=== PATIENT | female | born 1970 | race Caucasian/White ===

== ENCOUNTER 2017-11-11 14:34 | Emergency (ER) | payer BC ==
[~2017-11-11] VITALS: Ht 162.6 cm; Wt 78.4 kg
[2017-11-11 14:39] VITALS: TEMP 36.8; Ht 162.6 cm; Wt 78.4 kg
--- NOTE | 2017-11-11 15:03 | EMERGENCY ROOM VISIT NOTE ---
History First contact with patient: 14:47 Chief Complaint: LEG PAIN,LEG INJURY Stated Complaint: SORENESS,ACHE IN RIGHT LEG History of Present Illness 47-year-old female with a history of DVT and lymphedema of the right lower extremity presenting with increased swelling and pain over the last 3 days. Consistent along the entire leg that started on the right inner thigh. No trauma reported. Dull aching quality. Constant ache. History of cervical cancer off chemotherapy. Blood clot last July and finished anticoagulation in March. Drove here from [place] where she also lives 2 days ago symptoms began to worsen. No shortness of breath. No trauma. No change in neurological status. Worse when leg is down as opposed to lying flat or elevated. Currently on antibiotic for UTI. Source of History: patient Position: leg (right) Symptom Intensity: moderate Quality: ache, pressure, dull Timing: constant Modifying Factors (Relieving): elevation Associated Symptoms: No fevers, No chills, No chest pain, No SOB Review of Systems See HPI for pertinent positives and negatives. A total of ten systems were reviewed and were otherwise negative. Social History Smoking Status: Never Smoker Marital Status: Housing Status: lives with significant other Occupation Status: employed Current/Historical Medications Scheduled Ciprofloxacin Tab (Cipro), 1 TAB PO Q12 Enoxaparin Sodium (Lovenox), 120 MG SQ Q24H Oxybutynin Chloride (Oxybutynin Chloride ER), 10 MG PO DAILY Sertraline Hcl (Zoloft), 100 MG PO QAM Physical Exam Vital Signs Date Time Temp Pulse Resp B/P (MAP) Pulse Ox O2 Delivery O2 Flow Rate FiO2 11/11/17 14:39 36.8 93 18 142/86 97 Room Air Physical Exam GENERAL: Awake, alert, well-appearing, in no distress HENT: Normocephalic, atraumatic. Oropharynx unremarkable. EYES: Normal conjunctiva. Sclera non-icteric. NECK: Supple. No nuchal rigidity. RESPIRATORY: Clear to auscultation. No wheezes. Normal respiratory effort. CARDIAC: Normal rate. Normal rhythm. Extremities warm and well perfused. GI: Soft, non-distended. No tenderness to palpation. No rebound or guarding. No masses. RECTAL: Deferred. MUSCULOSKELETAL: Atraumatic. Chest examination reveals no tenderness; right chest wall port. LOWER EXTREMITIES: LLE wnl. RLE with 3+ edema and swelling of entire leg without tenderness or crepitus. Intact 2+ DP pulse right foot. Very slight erythema diffusely. NEURO: Normal sensorium. No gross sensory or motor deficits noted. No facial droop. SKIN: Warm and dry. No rash or jaundice noted. Medical Decision & Procedures Laboratory Results 11/11/17 15:10 Red Blood Count 4.04, Mean Corpuscular Volume 91.8, Mean Corpuscular Hemoglobin 31.2, Mean Corpuscular Hemoglobin Concent 34.0, Mean Platelet Volume 9.7, Neutrophils (%) (Auto) 76.4, Lymphocytes (%) (Auto) 7.8, Monocytes (%) (Auto) 13.3, Eosinophils (%) (Auto) 1.6, Basophils (%) (Auto) 0.3, Neutrophils # (Auto ) 5.30, Lymphocytes # (Auto) 0.54, Monocytes # (Auto) 0.92, Eosinophils # (Auto ) 0.11, Basophils # (Auto) 0.02 11/11/17 15:10 Test 11/11/17 15:10 11/11/17 16:12 White Blood Count 6.93 K/uL (4.8-10.8) Red Blood Count 4.04 M/uL (4.2-5.4) Hemoglobin 12.6 g/dL (12.0-16.0) Hematocrit 37.1 % (37-47) Mean Corpuscular Volume 91.8 fL (80-100) Mean Corpuscular Hemoglobin 31.2 pg (25-34) Mean Corpuscular Hemoglobin Concent 34.0 g/dl (32-36) Platelet Count 160 K/uL (130-400) Mean Platelet Volume 9.7 fL (7.4-10.4) Neutrophils (%) (Auto) 76.4 % Lymphocytes (%) (Auto) 7.8 % Monocytes (%) (Auto) 13.3 % Eosinophils (%) (Auto) 1.6 % Basophils (%) (Auto) 0.3 % Neutrophils # (Auto) 5.30 K/uL (1.4-6.5) Lymphocytes # (Auto) 0.54 K/uL (1.2-3.4) Monocytes # (Auto) 0.92 K/uL (0.11-0.59) Eosinophils # (Auto) 0.11 K/uL (0-0.5) Basophils # (Auto) 0.02 K/uL (0-0.2) RDW Standard Deviation 46.0 fL (36.4-46.3) RDW Coefficient of Variation 13.8 % (11.5-14.5) Immature Granulocyte % (Auto) 0.6 % Immature Granulocyte # (Auto) 0.04 K/uL (0.00-0.02) Anion Gap 11.0 mmol/L (3-11) Est Creatinine Clear Calc Drug Dose 143.9 ml/min Estimated GFR () 134.5 Estimated GFR (Non- 116.0 BUN/Creatinine Ratio 28.4 (10-20) Calcium Level 8.6 mg/dl (8.5-10.1) Prothrombin Time 11.3 SECONDS (9.0-12.0) Prothromb Time International Ratio 1.1 (0.9-1.1) Activated Partial Thromboplast Time 26.5 SECONDS (21.0-31.0) Partial Thromboplastin Ratio 1.0 ED Course 1445: The patient was evaluated in room B5. A complete history and physical exam was performed. 1620: Informed of US results. Discussed treatment plan. Lovenox ordered. I reevaluated the patient. Discussed results and discharge instructions: she verbalized understanding and agreement. The patient is ready for discharge pending Lovenox. Medical Decision Differential diagnosis: Etiologies such as DVT, musculoskeletal, infection, joint effusion, trauma, lymphedema, idiopathic, CHF, as well as others were entertained. Concern for possible DVT of this leg. Has underlying lymphedema but appears worse. Currently on antibiotic for UTI does not appear grossly cellulitic. She is no evidence of systemic illness. No trauma history and do not believe x- rays are indicated. Ultrasound of the extremity was completed along with basic blood work. No leukocytosis. Renal function stable. No evidence of ischemia of the limb. Ultrasound with extensive DVT. Not having symptoms consistent with PE at this time. We will start anticoagulation with Lovenox after discussion with patient. 1.5 mg/kg (120) every 24 hour dosing will be started. She will discuss with her aluminum molding machine operator tomorrow for long-term plans. Prescription provided. She is educated on Lovenox use as already as she used it last year. She is stable for discharge I did discuss return precautions. Discussed limiting driving given the swelling of limb. Medication Reconcilliation Current Medication List: was personally reviewed by me Blood Pressure Screening Patient's blood pressure: Elevated blood pressure Blood pressure disposition: Referred to PCP Please utilize the Lovenox 120 mg every 24 hours for anticoagulation next due at 4 PM on 11/12/2017. Would recommend you call your aluminum molding machine operator tomorrow to discuss long-term anticoagulation plans. Prescription provided for the tentative plan now. Would refrain from driving given the swelling and limited mobility of the his right leg elevated as possible. If you begin to experience severe chest pain, shortness of breath, severe pain of the right lower extremity , or other symptoms or concerns please report to the nearest emergency room for reevaluation. Otherwise recommend follow-up with your aluminum molding machine operator in the next week and again calling them tomorrow. Impression Primary Impression: Right femoral vein DVT Departure Information Dispostion Home / Self-Care Condition GOOD Prescriptions Enoxaparin Sodium (LOVENOX) 120 Mg/0.8 Ml Inj 120 MG SQ Q24H for 10 Days, #10 SYR 1 Refill Prov: Nnamdi Stuart M.D. 11/11/17 Referrals No Doctor, Assigned (PCP) Patient Instructions [facility] Additional Instructions Please utilize the Lovenox 120 mg every 24 hours for anticoagulation next due at 4 PM on 11/12/2017. Would recommend you call your aluminum molding machine operator tomorrow to discuss long-term anticoagulation plans. Prescription provided for the tentative plan now. Would refrain from driving given the swelling and limited mobility of the his right leg elevated as possible. If you begin to experience severe chest pain, shortness of breath, severe pain of the right lower extremity , or other symptoms or concerns please report to the nearest emergency room for reevaluation. Otherwise recommend follow-up with your aluminum molding machine operator in the next week and again calling them tomorrow. Problem Qualifiers Primary Impression: Right femoral vein DVT Chronicity: acute Qualified Codes: I82.411 - Acute embolism and thrombosis of right femoral vein
[2017-11-11] MEDS ORDERED: DTRSR/10 PO (15:17)
[2017-11-11] MEDS ORDERED: SERT100T PO (15:17)
[2017-11-11] MEDS ORDERED: CIPR1TAB11 PO (15:17)
[2017-11-11 15:18] LABS: BASO % 0.3 %; BASO ABS # 0.02 K/uL (0-0.2); EOS % 1.6 %; EOS ABS # 0.11 K/uL (0-0.5); HEMATOCRIT 37.1 % (37-47); HEMOGLOBIN 12.6 g/dL (12.0-16.0); IG# 0.04 K/uL (0.00-0.02); LYMPH % 7.8 %; LYMPH ABS # 0.54 K/uL (1.2-3.4); MEAN CELL VOLUME 91.8 fL (80-100); MEAN CORPUSCULAR HEMOGLOBIN 31.2 pg (25-34); MEAN PLATELET VOLUME 9.7 fL (7.4-10.4); MONO % 13.3 %; MONO ABS # 0.92 K/uL (0.11-0.59); NEUT % 76.4 %; PLATELET COUNT 160 K/uL (130-400); RED CELL DISTRIBUTION WIDTH CV 13.8 % (11.5-14.5); WHITE BLOOD COUNT 6.93 K/uL (4.8-10.8)
[2017-11-11 15:36] LABS: CALCIUM 8.6 mg/dl (8.5-10.1); CREATININE 0.49 mg/dl (0.60-1.20); POTASSIUM 3.1 mmol/L (3.5-5.1)
--- NOTE | 2017-11-11 15:59 | DIAGNOSTIC IMAGING REPORT ---
RIGHT LOWER EXTREMITY VENOUS DOPPLER CLINICAL HISTORY: Worsening right lower external the swelling. DVT off anticoagulation. COMPARISON STUDY: None available at time of interpretation. TECHNIQUE: Sonography of the deep venous system of the right lower extremity was performed. Compression and augmentation were evaluated. FINDINGS: Extensive deep venous thrombus is noted within the right lower extremity with occlusive thrombus within the right common femoral, femoral, popliteal, posterior tibial and peroneal and as well as superficial thrombus within the right greater saphenous. Several these vessels are expanded. IMPRESSION: Extensive deep venous thrombus within the right lower extremity. Although technically age indeterminate, the appearance favors acute deep venous thrombus. Correlation with prior imaging studies, if available, would be of benefit. Electronically signed by: Roderick Dykes M.D. 11/11/2017 3:57 PM Dictated Date/Time: 11/11/2017 3:55 PM
[2017-11-11] MEDS ORDERED: ENOXAPARIN 1.5 MG/KG SQ STA (16:18)
[2017-11-11] MEDS ORDERED: ENOX1INJ13 SQ (16:23)
[2017-11-11] MEDS ORDERED: ENOXAPARIN 120 MG/0.8 ML SYR SQ STA (16:24)
[2017-11-11 16:28] LABS: INR 1.1 (0.9-1.1); PTT PATIENT 26.5 SECONDS (21.0-31.0)
[2017-11-11 16:41] VITALS: BP 140/94; PULSE 91; O2SAT 96
== END 2017-11-11 16:53 | disposition home or self-care (01) ==
LOC: C.EDB 14:39
DX: I82.411 Acute embolism and thrombosis of right femoral vein (principal); Z86.718 Personal history of other venous thrombosis and embolism; Z79.2 Long term (current) use of antibiotics; Z79.899 Other long term (current) drug therapy

== ENCOUNTER 2023-02-16 09:38 | Inpatient (IN) ==
[2023-02-16] MEDS ORDERED: SODIUM CHLORIDE 0.9% 1,000 ML IV ONE ×2 (10:49→14:48)
[2023-02-16] MEDS ORDERED: ONDANSETRON INJ 2 MG/ML 2 ML VIAL IV STA ×3 (10:49→17:32)
[2023-02-16] MEDS ORDERED: HYDROmorphone INJ 1 MG/ML SYRINGE IV STA ×2 (10:49→14:48)
--- NOTE | 2023-02-16 10:54 | Emergency Department Note ---
Impression & Plan Nausea & vomiting, Abdominal pain, Primary cervical cancer with metastasis to other site ED Provider Note Name: NOELLE MCNEIL Age: 52 Sex: Female Arrives Via: Walk-In Informant: Patient, ED Provider: Reggie Parada MD Chief Complaint: Abdominal pain Impression: As per impressions above Medical Decision Making: Pleasant 52-year-old female with [id number] treatment of metastatic cervical cancer arrives for evaluation of worsening abdominal pain that is been gradually exacerbating the last few months. Patient is dehydrated appearing quite uncomfortable appearing. She was given multiple rounds of IV Dilaudid Zofran and fluids. She does feel better. There is no clear evidence of infectious etiology. CT the chest abdomen pelvis reveals for metastatic disease, there is no overt evidence that this is clearly a pneumonia especially given she is not significantly short of breath or hypoxic. She does have evidence of partial small bowel obstruction which is probably the cause of her continued discomfort. No persistent vomiting in the ED so we will hold off on NG tube. She does report fevers recently but no clear etiology found at this time. We will hold off on empiric antibiotics as I do not feel she is severe sepsis or septic shock. Does have a history of DVT/PE but has been on Lovenox no evidence of PE on the CT. Patient does feel better however given she has been unable to keep down food/fluids her worsening pain and required multiple rounds of meds here I think hospitalization is reasonable and patient and are comfortable with this plan. Triage/Nursing Notes reviewed by Me Differential:Bowel obstruction, ischemic gut, infection, pneumonia, PE, UTI, electrolyte imbalance, cancer pain, many many other pathologies considered Vital Signs: reviewed and remarkable for tachycardia Interventions: Normal saline bolus 2 L IV, Dilaudid 1 mg IV x2, Zofran 4 mg IV Labs:ED labs Reviewed by me and remarkable for mildly low magnesium, negative procalcitonin, neutropenia and anemia. Imaging: CT PE scan of the chest as per my informal interpretation reveals diffuse metastasis throughout lungs no overt PE. Reviewed by radiologist see report CT of the abdomen pelvis as per my informal interpretation questionable ileus versus partial small bowel obstruction no overt free air or other concerning findings. Reviewed by radiologist see report on chart Cardiac/Tele Monitoring: Cardiac Monitoring: An Order was placed for continuous cardiac monitoring. The monitor shows a rate of 120 with a sinus tach rhythm. Consults:[facility] Hospitalist Plan: Disposition: Hospitalization Condition: Good History of Present Illness: 52-year-old female arrives for evaluation of abdominal pain. Patient with several years of cervical cancer treatment. She notes the last few months intermittent abdominal pains. Has been following with oncologist no clear etiology. Patient had her chemo 2 weeks ago. Since then she notes increasing abdominal pain and discomfort. Diffuse abdominal pain originating in the epigastric region and spreading throughout. Associated with intractable nausea vomiting for many hours after she has an episode. Over the last 24 to 48 hours increasing abdominal pain associated with vomiting, fevers of 101 and generalized malaise. Has been unable to keep down any medications. Denies any blood in her emesis. Does have a history of DVT/PE is on Lovenox. Did miss her last 2 doses of Lovenox. Denies any falls, syncope, chest pain, difficulty breathing. Unable to keep down any fluids or foods recently Past Medical History: Metastatic cervical cancer Home Medications: Lovenox, oxybutynin, hydromorphone, Zofran Allergies:nkda Vitals:Blood Pressure: 113/68, Pulse 128, RR 17, T 36.3C, O2 98% on RA Physical Exam: GENERAL: Patient is tired/dehydrated appearing and in moderate distress. GASTROINTESTINAL: Diffuse tenderness palpation EXTREMITIES: Normal motion all extremities, no cyanosis, no edema. NEUROLOGIC: Alert and oriented. No focal neurologic deficits appreciated SKIN: No rash, no jaundice, no diaphoresis. PSYCH: Appropriate GCS: 15 ED Course: Times/Reassessments: Patient is significantly improved after IV fluids and pain meds however is agreeable to hospitalization at this time. Reggie Parada MD Past Med/Surg History Medical History Chronic deep vein thrombosis (DVT) Primary cervical cancer with metastasis to other site Surgical History History of vascular surgery history bilateral lower extremity thrombectomy and stenting History of appendectomy History of hysterectomy Family History Other No significant family history Social History Smoking Status: Never smoker Hx Alcohol Use: No Hx Substance Use: No Preferred Language: Persian Current Living Situation: Spouse Other Information That Helps Us Care for You: No Feels Safe at Home: Yes Safety Concerns: Feels Safe At This Time Allergies Allergies Allergy/AdvReac Type Severity Reaction Status Date / Time No Known Allergies Allergy Unverified 11/11/17 15:14 Home Meds Home Medications Medication Instructions Recorded Confirmed cilostazol 50 mg tablet 50 mg PO BID 02/16/23 02/16/23 cyclosporine 0.05 % eye drops in a 1 drp OPB BID 02/16/23 02/16/23 dropperette (Restasis) dicyclomine 10 mg capsule 10 mg PO TID 02/16/23 02/16/23 duloxetine 30 mg capsule,delayed 30 mg PO DAILY 02/16/23 02/16/23 release enoxaparin 100 mg/mL subcutaneous 100 mg subcut BID 02/16/23 02/16/23 syringe fentanyl 12 mcg/hr transdermal 12 mcg transdermal Q72H 02/16/23 02/16/23 patch gabapentin 100 mg capsule 200 mg PO BID 02/16/23 02/16/23 hydromorphone 2 mg tablet 2 mg PO Q4H PRN Pain 02/16/23 02/16/23 melatonin 3 mg tablet 3 mg PO HS 02/16/23 02/16/23 olanzapine 2.5 mg tablet 2.5 mg PO HS 02/16/23 02/16/23 oxybutynin chloride 10 mg 10 mg PO PM 02/16/23 02/16/23 tablet,extended release 24 hr polyethylene glycol 3350 17 gram 17 g PO DAILY 02/16/23 02/16/23 oral powder packet (Miralax) varenicline 0.03 mg/spray nasal 1 spray intranasal BID 02/16/23 02/16/23 spray (Tyrvaya) Results & Data (ED) Vital Signs Vital Signs - 24 hr 02/16/23 09:49 Temperature 36.3 C L Temperature Source Oral Pulse Rate 128 H Respiratory Rate 17 Respiratory Effort / Characteristics Non-Labored Spontaneous Respiratory Depth Normal Respiratory Pattern Regular Blood Pressure 113/68 Blood Pressure Mean 83 Blood Pressure Position Sitting Pulse Oximetry 98 Oxygen Delivery Method Room Air Sepsis Recent Fever Within 48 Hours Yes Sepsis New/Unexplained Change in Mental Status No Sepsis Action Taken by Nursing No Action Required Laboratory Data 02/17/23 04:20 02/18/23 04:35 Lab Results 02/16/23 02/16/23 Range/Units 11:04 11:18 WBC 3.81 L (4.8-10.8) K/ul RBC 4.79 (4.20-5.40) M/uL Hgb 10.4 L (12.0-16.0) g/dl Hct 34.1 L (37.0-47.0) % MCV 71.2 L (80.0-100.0) fL MCH 21.7 L (25.0-34.0) pg MCHC 30.5 L (32.0-36.0) g/dL RDW Std Deviation 58.4 H (36.4-46.3) fL RDW Coeff of Luis 23.7 H (11.5-14.5) % Plt Count 495 H (130-400) K/uL MPV 9.6 (9.4-12.4) fL Immature Gran % (Auto) 0.5 % Neut % (Auto) 71.1 % Lymph % (Auto) 14.2 % Grady % (Auto) 13.6 % Eos % (Auto) 0.3 % Baso % (Auto) 0.3 % Neut # (Auto) 2.71 (1.40-6.50) K/uL Lymph # (Auto) 0.54 L (1.20-3.40) K/uL Grady # (Auto) 0.52 (0.11-0.59) K/uL Eos # (Auto) 0.01 (0.00-0.50) K/uL Baso # (Auto) 0.01 (0.00-0.20) K/uL Immature Gran # (Auto) 0.02 (0.01-0.20) K/uL Polychromasia 1+ Anisocytosis Present Tear Drop Cells 1+ Ovalocytes 1+ Sodium 138 (136-145) mmol/L Potassium 3.6 (3.5-5.1) mmol/L Chloride 102 (98-107) mmol/L Carbon Dioxide 25 (21-32) mmol/L Anion Gap 11 (3-11) BUN 17 (6-23) mg/dl Creatinine 0.55 L (0.6-1.2) mg/dl Est Cr Clr Drug Dosing 103.3 ml/min Est GFR ( Amer) 125.0 ml/min Est GFR (Non-Af Amer) 107.8 ml/min BUN/Creatinine Ratio 30.9 H (10-20) Glucose 102 H (70-99(Fasting)) mg/dl Lactate 1.6 (0.4-2.0) mmol/L Calcium 9.9 (8.6-10.3) mg/dl Phosphorus 3.8 (2.5-4.9) mg/dl Magnesium 1.6 L (1.7-2.4) mg/dl Total Bilirubin 0.4 (0.2-1.0) mg/dl AST 13 (13-39) U/L ALT 8 (7-52) U/L Alkaline Phosphatase 87 (34-104) U/L Troponin I High Sens 6.6 (0-14) pg/ml Total Protein 7.4 (6.0-8.3) gm/dl Albumin 4.2 (3.4-5.0) gm/dl Globulin 3.2 (2.5-4.0) gm/dl Albumin/Globulin Ratio 1.3 (0.9-2) Lipase 12 (11-82) U/L Procalcitonin < 0.05 (0-0.5) ng/ml Adenovirus (PCR) Not Detected (NotDetected) B. pertussis DNA (PCR) Not Detected (NotDetected) B.parapertussis DNA PCR Not Detected (NotDetected) C. pneumoniae DNA (PCR) Not Detected (NotDetected) Coronavirus OC43 (PCR) Not Detected (NotDetected) Coronavirus HKU1 (PCR) Not Detected (NotDetected) Coronavirus 229E (PCR) Not Detected (NotDetected) SARS-CoV-2 (PCR) Not Detected (NotDetected) Coronavirus NL63 (PCR) Not Detected (NotDetected) Human Metapneumovir PCR Not Detected (NotDetected) Influenza Type A (PCR) Not Detected (NotDetected) Influenza Type B (PCR) Not Detected (NotDetected) M. pneumoniae (PCR) Not Detected (NotDetected) Parainfluenza 1 (PCR) Not Detected (NotDetected) Parainfluenza 2 (PCR) Not Detected (NotDetected) Parainfluenza 3 (PCR) Not Detected (NotDetected) Parainfluenza 4 (PCR) Not Detected (NotDetected) RSV (PCR) Not Detected (NotDetected) Entero/Rhino (PCR) Not Detected (NotDetected) Administered Medications Cilostazol (Cilostazol 100 Mg Tab) 50 mg PO BID [facility] Stop: 03/18/23 20:59 Last Admin: 02/17/23 20:38 Dose: 50 mg Documented By: [facility] Admin: 02/17/23 08:27 Dose: 50 mg Documented By: [facility] Admin: 02/16/23 21:56 Dose: 50 mg Documented By: [facility] Dicyclomine HCl (Dicyclomine Hcl 10 Mg Cap) 10 mg PO TID SAE Stop: 03/18/23 20:59 Last Admin: 02/17/23 20:38 Dose: 10 mg Documented By: [facility] Admin: 02/17/23 14:56 Dose: 10 mg Documented By: [facility] Admin: 02/17/23 08:28 Dose: 10 mg Documented By: [facility] Admin: 02/16/23 21:55 Dose: 10 mg Documented By: [facility] Duloxetine HCl (Duloxetine Hcl 30 Mg Cap) 30 mg PO DAILY SAE Stop: 03/18/23 20:59 Last Admin: 02/17/23 20:37 Dose: 30 mg Documented By: [facility] Admin: 02/17/23 08:28 Dose: 30 mg Documented By: [facility] Admin: 02/16/23 21:55 Dose: 30 mg Documented By: [facility] Enoxaparin Sodium (Enoxaparin 100 Mg/1ml Syr) 100 mg SQ BID@0700,1900 [facility] Stop: 03/19/23 06:59 Last Admin: 02/18/23 06:41 Dose: 100 mg Documented By: [facility] Admin: 02/17/23 20:36 Dose: 100 mg Documented By: [facility] Admin: 02/17/23 08:28 Dose: 100 mg Documented By: [facility] Fentanyl (Fentanyl 12 Mcg/Hr Tdsy) 12 mcg TD Q72H SAE Stop: 03/02/23 20:59 Last Admin: 02/16/23 22:11 Dose: 12 mcg Documented By: [facility] Gabapentin (Gabapentin 100 Mg Cap) 200 mg PO BID SAE Stop: 03/18/23 20:59 Last Admin: 02/17/23 20:37 Dose: 200 mg Documented By: Admin: 02/17/23 08:27 Dose: 200 mg Documented By: JOSE GUADALUPE Admin: 02/16/23 21:54 Dose: 200 mg Documented By: VALERIANO Heparin Sodium (Porcine) (Heparin 100 Unit/Ml 5ml Flush) 5 ml FLUSH PRN PRN PRN Reason: Flush Stop: 03/19/23 00:11 Last Admin: 02/17/23 11:06 Dose: 5 ml Documented By: ZACH Hydromorphone HCl (Hydromorphone Inj 1 Mg/Ml Syringe) 1 mg IV Q6H PRN PRN Reason: Severe Pain (Scale 7, 8, 9,10) Stop: 03/02/23 18:33 Last Admin: 02/18/23 03:45 Dose: 1 mg Documented By: Admin: 02/17/23 20:34 Dose: 1 mg Documented By: Admin: 02/17/23 16:41 Dose: 1 mg Documented By: Admin: 02/17/23 10:47 Dose: 1 mg Documented By: Admin: 02/17/23 03:31 Dose: 1 mg Documented By: Admin: 02/16/23 21:46 Dose: 1 mg Documented By: VALERIANO Melatonin (Melatonin 3 Mg Tab) 3 mg PO HS [facility] Stop: 03/18/23 20:59 Last Admin: 02/17/23 20:41 Dose: 3 mg Documented By: Admin: 02/16/23 21:55 Dose: 3 mg Documented By: VALERIANO Silver (Check Fentanyl Patch Placement) 1 each N/A QS [facility] Stop: 03/19/23 00:00 Last Admin: 02/18/23 00:46 Dose: 1 each Documented By: Admin: 02/17/23 16:34 Dose: 1 each Documented By: Admin: 02/17/23 08:28 Dose: 1 each Documented By: JOSE GUADALUPE Admin: 02/17/23 01:22 Dose: 1 each Documented By: VALERIANO Gomezaneous (Fentanyl Patch Remove & Waste) 1 each N/A Q3D@2100 [facility] Stop: 03/18/23 20:59 Last Admin: 02/16/23 22:45 Dose: 1 each Documented By: VALERIANO Co-signed By: AMS Miscellaneous (Tyrvaya--Order Awaiting Action) 1 each N/A QS [facility] Stop: 03/19/23 00:00 Last Admin: 02/18/23 00:02 Dose: Not Given Documented By: Admin: 02/17/23 16:35 Dose: Not Given Documented By: Admin: 02/17/23 08:29 Dose: Not Given Documented By: Admin: 02/17/23 01:22 Dose: Not Given Documented By: VALERIANO Olanzapine (Olanzapine 2.5 Mg Tab) 2.5 mg PO HS SAE Stop: 03/18/23 20:59 Last Admin: 02/17/23 20:37 Dose: 2.5 mg Documented By: Admin: 02/16/23 21:55 Dose: 2.5 mg Documented By: VALERIANO Ondansetron HCl (Ondansetron Inj 2 Mg/Ml 2 Ml Vial) 4 mg IV Q6H PRN PRN Reason: Nausea Stop: 03/18/23 18:33 Last Admin: 02/18/23 03:45 Dose: 4 mg Documented By: Admin: 02/17/23 20:34 Dose: 4 mg Documented By: Admin: 02/17/23 16:41 Dose: 4 mg Documented By: Admin: 02/17/23 10:47 Dose: 4 mg Documented By: Admin: 02/17/23 03:31 Dose: 4 mg Documented By: Admin: 02/16/23 21:46 Dose: 4 mg Documented By: VALERIANO Oxybutynin Chloride (Oxybutynin Chloride Xl 5 Mg Tabcr) 10 mg PO PM SAE Stop: 03/18/23 20:59 Last Admin: 02/17/23 20:37 Dose: 10 mg Documented By: Admin: 02/16/23 21:54 Dose: 10 mg Documented By: VALERIANO Polyethylene Glycol (Polyethylene (Miralax) 17 Gm Pack) 17 gm PO DAILY SAE Stop: 03/19/23 08:59 Last Admin: 02/17/23 14:57 Dose: 17 gm Documented By: Admin: 02/17/23 08:29 Dose: Not Given Documented By: MTJame Discontinued Medications Enoxaparin Sodium (Enoxaparin 100 Mg/1ml Syr) 100 mg SQ NOW ONE Stop: 02/16/23 16:46 Last Admin: 02/16/23 17:41 Dose: 100 mg Documented By: ERROL Hydromorphone HCl (Hydromorphone Inj 1 Mg/Ml Syringe) 1 mg IV NOW STA Stop: 02/16/23 10:50 Last Admin: 02/16/23 11:12 Dose: 1 mg Documented By: KEITH Hydromorphone HCl (Hydromorphone Inj 1 Mg/Ml Syringe) 1 mg IV NOW STA Stop: 02/16/23 14:49 Last Admin: 02/16/23 14:54 Dose: 1 mg Documented By: KEITH Hydromorphone HCl (Hydromorphone Inj 0.5 Mg/0.5 Ml Syr) 0.5 mg IV NOW STA Stop: 02/16/23 17:33 Last Admin: 02/16/23 17:41 Dose: 0.5 mg Documented By: ERROL Sodium Chloride (Nss) 1,000 mls @ 999 mls/hr IV .Q1H1M ONE Stop: 02/16/23 11:49 Last Infusion: 02/16/23 12:19 Dose: Infused Documented By: Admin: 02/16/23 11:12 Dose: 999 mls/hr Documented By: KEITH Sodium Chloride (Nss) 1,000 mls @ 999 mls/hr IV .Q1H1M ONE Stop: 02/16/23 15:48 Last Infusion: 02/16/23 16:48 Dose: Infused Documented By: Admin: 02/16/23 14:54 Dose: 999 mls/hr Documented By: KEITH Potassium Chloride/Sodium Chloride (Normal Saline W/20 Meq Kcl) 20 meq in 1,000 mls @ 100 mls/hr IV .Q10H SAE; Protocol Stop: 02/17/23 14:59 Last Infusion: 02/17/23 16:35 Dose: Infused Documented By: Admin: 02/17/23 06:15 Dose: 100 mls/hr Documented By: Infusion: 02/17/23 05:12 Dose: Infused Documented By: Admin: 02/16/23 18:51 Dose: 100 mls/hr Documented By: ERROL Magnesium Sulfate/Dextrose (Magnesium Sulfate / D5w) 1 gm in 100 mls @ 50 mls/hr IV ONE ONE Stop: 02/16/23 20:33 Last Infusion: 02/16/23 22:44 Dose: Infused Documented By: Admin: 02/16/23 18:51 Dose: 50 mls/hr Documented By: ERROL Ioversol (Optiray 320 100ml) 89 ml IV ONCE ONE Stop: 02/16/23 13:46 Last Admin: 02/16/23 13:46 Dose: 89 ml Documented By: HEIDY Ondansetron HCl (Ondansetron Inj 2 Mg/Ml 2 Ml Vial) 4 mg IV NOW STA Stop: 02/16/23 10:50 Last Admin: 02/16/23 11:12 Dose: 4 mg Documented By: KEITH Ondansetron HCl (Ondansetron Inj 2 Mg/Ml 2 Ml Vial) 4 mg IV NOW STA Stop: 02/16/23 14:49 Last Admin: 02/16/23 14:54 Dose: 4 mg Documented By: KEITH Ondansetron HCl (Ondansetron Inj 2 Mg/Ml 2 Ml Vial) 4 mg IV NOW STA Stop: 02/16/23 17:33 Last Admin: 02/16/23 17:41 Dose: 4 mg Documented By: ERROL Discharge Plan Visit Data Chief Complaint: Vomiting Stated Complaint: VOMITING,STAGE 4 CANCER,CHEMO LAST ,DEHYDRATIO ED Provider: Reggie Parada Discharge Problem: Nausea & vomiting, Abdominal pain, Primary cervical cancer with metastasis to other site Patient Disposition: Admitted As Inpatient Discharge Instructions Interventions: ED Discharge Assessment Last Done: 02/16/23 18:33
--- NOTE | 2023-02-16 11:12 | XRay Report ---
XR chest 1V portable CLINICAL HISTORY: Fever. COMPARISON STUDY: No previous studies for comparison. FINDINGS: Right internal jugular [id number] is in place. There is no pneumothorax or pleural effus ion. There are multifocal airspace opacities within the lungs. This includes left midlung and right u pper lung consolidation and patchy bilateral lower lung opacities. There is possible cavitation withi n the left midlung opacity. Cardiac size is normal. Mediastinal contours are unremarkable. IMPRESSION: Bilateral airspace opacities, as described above. Possible cavitation within the left mid lung opacity. The findings favor an infectious process such as multifocal pneumonia. A neoplastic pro cess is considered less likely however radiographic follow-up to ensure resolution is recommended. ACT 112: Negative or not required by law. Electronically signed by: Roderick Dykes M.D. 02/16/2023 11:11 AM
[2023-02-16 11:36] LABS: Albumin Globulin Ratio 1.3 (0.9-2); Albumin Level 4.2 gm/dl (3.4-5.0); BUN Creatinine Ratio 30.9 (10-20); Bilirubin,Total 0.4 mg/dl (0.2-1.0); Calcium 9.9 mg/dl (8.6-10.3); Creatinine Clr Calc Pharmacy 103.3 ml/min; Est GFR (Non-African American) 107.8 ml/min; Globulin 3.2 gm/dl (2.5-4.0); Magnesium 1.6 mg/dl (1.7-2.4); Potassium 3.6 mmol/L (3.5-5.1); Total Protein 7.4 gm/dl (6.0-8.3)
[2023-02-16 11:41] LABS: Basophils # (auto) 0.01 K/uL (0.00-0.20); Basophils % (auto) 0.3 %; Eosinophils # (auto) 0.01 K/uL (0.00-0.50); Eosinophils % (auto) 0.3 %; Hematocrit (blood only) 34.1 % (37.0-47.0); Hemoglobin 10.4 g/dl (12.0-16.0); Immature Granulocytes # (auto) 0.02 K/uL (0.01-0.20); Immature Granulocytes % (auto) 0.5 %; Lymphocytes # (auto) 0.54 K/uL (1.20-3.40); Lymphocytes % (auto) 14.2 %; Mean Corpuscular Hemoglobin 21.7 pg (25.0-34.0); Mean Corpuscular Hgb Conc 30.5 g/dL (32.0-36.0); Mean Corpuscular Volume 71.2 fL (80.0-100.0); Mean Platelet Volume 9.6 fL (9.4-12.4); Monocytes # (auto) 0.52 K/uL (0.11-0.59); Monocytes % (auto) 13.6 %; Neutrophils # (auto) 2.71 K/uL (1.40-6.50); Neutrophils % (auto) 71.1 %; Platelet Count 495 K/uL (130-400); RDW Coefficient of Variation 23.7 % (11.5-14.5); RDW Standard Deviation 58.4 fL (36.4-46.3); Red Blood Count 4.79 M/uL (4.20-5.40); White Blood Count 3.81 K/ul (4.8-10.8)
[2023-02-16 11:42] LABS: Troponin I High Sensitivity 6.6 pg/ml (0-14)
[2023-02-16 12:13] LABS: Anisocytosis Present; Ovalocytes 1+; Polychromasia 1+; Tear Drop Cells 1+
[2023-02-16 13:30] LABS: Adenovirus PCR Not Detected (NotDetected); Bordetella parapertussis PCR Not Detected (NotDetected); Bordetella pertussis PCR Not Detected (NotDetected); Chlamydia pneumoniae PCR Not Detected (NotDetected); Coronavirus 229E PCR Not Detected (NotDetected); Coronavirus CoV-2 (COVID19)PCR Not Detected (NotDetected); Coronavirus HKU1 PCR Not Detected (NotDetected); Coronavirus NL63 PCR Not Detected (NotDetected); Coronavirus OC43PCR Not Detected (NotDetected); Human Metapneumovirus PCR Not Detected (NotDetected); Influenza A PCR Not Detected (NotDetected); Influenza B PCR Not Detected (NotDetected); Mycoplasma pneumoniae PCR Not Detected (NotDetected); Parainfluenza Virus 1 PCR Not Detected (NotDetected); Parainfluenza Virus 2 PCR Not Detected (NotDetected); Parainfluenza Virus 3 PCR Not Detected (NotDetected); Parainfluenza Virus 4 PCR Not Detected (NotDetected); Respiratory Syncytial VirusPCR Not Detected (NotDetected); Rhinovirus/Enterovirus PCR Not Detected (NotDetected)
[2023-02-16] MEDS ORDERED: OPTIRAY 320 100ml IV ONE (13:45)
--- NOTE | 2023-02-16 14:21 | CT Scan Report ---
CT OF THE ABDOMEN AND PELVIS WITH CONTRAST CLINICAL HISTORY: Diffuse abdominal pain. Cervical cancer. COMPARISON STUDY: None. TECHNIQUE: Following IV administration of 89 mL of Optiray, axial images of the abdomen and pelvis we re obtained from the lung bases to the proximal femurs. Images were reviewed in the axial, sagittal, and coronal planes. IV contrast was administered without complication. Automated exposure control wa s utilized for the study. A dose lowering technique was utilized adhering to the principles of ALARA . CT DOSE: 874.07 mGy.cm FINDINGS: Please note that the chest CT will be reported separately. Innumerable cavitary lesions wit h associated groundglass opacity are better depicted on that exam. No pneumatosis, free air or portal venous gas is present. A small amount of abdominal and pelvic ascites is noted. Gallbladder is mildl y distended. There is no adjacent infiltration. No hepatic lesions are present. There is no biliary o r pancreatic ductal dilatation. Spleen, adrenal glands and pancreas are unremarkable. There are left- sided renal parapelvic cysts. Marked right renal atrophy is noted. The majority of the small bowel is mildly dilated and fluid-filled. The terminal ileum is decompressed. A discrete transition point is not identified. Fluid collections are present. There is a moderate amount of stool within the colon a nd rectum. The appendix is not visualized. Bilateral iliac vein stent appears patent. However, the ri [facility] iliac vein stent is narrowed by suspected right external iliac lymphadenopathy which measures 2.5 x 2.4 cm. There is age indeterminate occlusion of the right external iliac artery on image 243. Ther e is distal reconstitution. Mixed sclerosis and lucency within the posterior right iliac bone extends for 8.8 cm. No additional osseous lesions are identified. Asymmetric left thigh stranding is noted IMPRESSION: 1. Mildly dilated fluid-filled small bowel with decompressed terminal ileum. However, no transition p oint identified. The findings favor an enteritis/ileus. However, a partial small bowel obstruction co uld appear similar. Small amount of ascites. No pneumatosis, free air or portal venous gas. 2. Innumerable cavitary lesions within the lungs with adjacent ground glass opacity. These are better depicted on the chest CT. Please see that report for further description. 3. Pathologic right external iliac lymphadenopathy which results in narrowing of the iliac vein stent . However, stent appears patent. 4. Age indeterminate occlusion of the right external iliac artery with distal reconstitution. 5. Mildly distended gallbladder. However, no pericholecystic infiltration to strongly suggest acute c holecystitis. This could be correlated with right upper quadrant pain. 6. Moderate amount of stool within the colon and rectum. 7. Mixed sclerosis and lucency within the right iliac bone. This is nonspecific and a metastatic lesi on cannot be excluded. 8. Asymmetric left groin/thigh stranding. No fluid collection. ACT 112: Negative or not required by law. Electronically signed by: Roderick Dykes M.D. 02/16/2023 2:20 PM
--- NOTE | 2023-02-16 14:23 | CT Scan Report ---
CHEST CT WITH CONTRAST CT DOSE: HISTORY: Abnormal chest x-ray. Bilateral airspace opacities. multifocal pneumonia TECHNIQUE: Multiaxial CT images of the chest were performed following the intravenous administration of contrast. A dose lowering technique was utilized adhering to the principles of ALARA. COMPARISON: Chest 02/16/2023. FINDINGS: There are old, healed bilateral rib fractures. No acute fractures within the chest. No susp icious lytic or blastic osseous lesions. The abdominal structures will be reported on the same day ab domen and pelvis CT. The thyroid gland enhances normally. Surgical clips within the right axilla. A r ight jugular central venous catheter terminates in the distal SVC. Normal esophagus. The heart is top normal in size. No pleural or pericardial effusions. Normal caliber thoracic aorta with no evidence for a dissection. The central pulmonary arteries appear patent. There is necrotic mediastinal and sisi ateral hilar lymphadenopathy. The dominant left hilar lymph node measures 2 cm. No pneumothorax. The central airways are patent. Multiple scattered irregular nodules seen throughout the lungs with assoc iated groundglass halos. The majority of these demonstrate central cavitation. A dominant cavitary no dule within the right lower lobe on image 119 and measures 2.1 cm. A few the scattered nodules do not demonstrate central cavitation. Dominant solid nodule within the left upper lobe anteriorly on image 76 measures 2.1 cm. Additional patchy groundglass airspace opacities within the lung bases. IMPRESSION: 1. Multiple scattered irregular nodules seen throughout the lungs with associated groundglass halos. The majority of these demonstrate central cavitation. These favor cavitary metastatic foci. However, an atypical/fungal infection or septic pulmonary emboli also remain in the differential diagnosis. 2. Necrotic mediastinal and hilar lymphadenopathy likely representing metastatic disease. 3. The abdominal structures will be reported on the same day abdomen and pelvis CT. ACT 112: Negative or not required by law. Electronically signed by: Tirso Short M.D. 02/16/2023 2:21 PM
--- NOTE | 2023-02-16 15:15 | History & Physical Report ---
Date of Service February 16, 2023 Assessment & Plan (1) Nausea & vomiting: (2) Abdominal pain: Plan: Patient is 52 y/o F with PMH stage IV cervical cancer with metastasis to lungs, pelvis & vertebrae, chronic thrombosis right femoral vein, BLE thrombectomy and stenting on chronic Lovenox and Pletal presented to ER with c/o N/V and abdominal pain. History recurrent N/V, abdominal pain, however intractable nausea, vomiting started yesterday In ER afebrile, P: 128-102, BP: 113/68, R: 20, 95% on RA CT ABD/PELVIS:Mildly dilated fluid-filled small bowel with decompressed terminal ileum. However, no transition point identified. The findings favor an enteritis/ ileus. However, a partial small bowel obstruction could appear similar. Small amount of ascites. No pneumatosis, free air or portal venous gas. Mildly distended gallbladder. However, no pericholecystic infiltration to strongly suggest acute cholecystitis. Moderate amount of stool within the colon and rectum. GALLBLADDER US: Moderate gallbladder distention. However, no gallstones. No sonographic Montanez sign. No sonographic evidence for acute cholecystitis. Mild biliary ductal dilatation. This could be correlated with liver function tests. Trace perihepatic ascites. Marked right renal atrophy. In ER given 2 L NSS, Zofran, IV morphine with reported improvement in nausea and abdominal pain. No further vomiting Suspect enteritis vs ileus. No signs complete SBO at this time. No signs cholecystitis on gallbladder us. LFTs, Lipase WNL Blood cultures pending NPO for now Will hold on antibiotics currently Antiemetics, IV Dilaudid prn. Continue home fentanyl patch. Will hold home oral Dilaudid currently while receiving IV IVF Continue Bentyl as needed KUB in am CBC, CMP in am (3) Hypomagnesemia: Plan: Magnesium: 1.6 Replace and monitor (4) Primary cervical cancer with metastasis to other site: Plan: History of metastatic cervical cancer. Metastasis to lungs, pelvis, vertebrae reported by patient. Initially diagnosed 2013 CT chest: Multiple scattered irregular nodules seen throughout the lungs with associated groundglass halos. The majority of these demonstrate central cavitation. These favor cavitary metastatic foci. However, an atypical/fungal infection or septic pulmonary emboli also remain in the differential diagnosis. Necrotic mediastinal and hilar lymphadenopathy likely representing metastatic disease. Patient without cough, shortness of breath. Suspect these are metastatic findings Last chemo on 01/30/2023 Continue home gabapentin, fentanyl patch, hold home oral Dilaudid while receiving IV Dilaudid Academic Support Director/oncologist Dr Cardona, [facility], (5) Chronic deep vein thrombosis (DVT): Plan: History of chronic thrombosis right femoral vein. History multiple lower extremity venous thrombectomy and stenting procedures, most recent in 2021 at [facility] in [facility] History LLE lymphedema Continue Lovenox, Pletal, per patient's IR and oncologist Continue outpatient PT lymphedema therapy DVT Prophylaxis Lovenox Full Code as per discussion with patient, however states if poor prognosis or requires prolonged ventilation would want care discontinued Follows with Dr Kristyn Brown for routine care Pt was seen and care coordinated with Dr Geiger. See addendum History of Present Illness Chief Complaint: N/V, abdominal pain Primary Care Provider: Kristyn Brown MD Patient is 52 y/o F with PMH stage IV cervical cancer with metastasis to lungs, pelvis & vertebrae, chronic thrombosis right femoral vein, BLE thrombectomy and stenting on chronic Lovenox and Pletal presented to ER with c/o N/V and abdominal pain. History obtained from patient, patient's spouse, and outpatient chart review. Patient reports has been getting intermittent epigastric and right upper quadrant abdominal pain with associated nausea and vomiting over the past months. Reports will get sudden onset of symptoms that usually last several hours and resolved with Bentyl or antinausea medicine. Her work-up is included an unremarkable outpatient colonoscopy on 12/07/2022. Patient reports had outpatient US RUQ that was unremarkable (imaging unavailable for review). Initially thought may be secondary to chemo or possible food intolerance with nuts, however patient reports has had continue symptoms. States yesterday had onset of epigastric and right upper quadrant pain with associated nausea and vomiting. Patient states had upwards of 50 episodes of emesis yesterday. Reports this episode feels like prior episodes however has been prolonged. States temp of 103F yesterday. Did not take any antipyretics secondary to vomiting. Denies any further recorded fevers or chills. States is moving bowels. Had 2 BMs today. Is on chronic Miralax and reports stools are normally soft. Has chronic LLE edema/lymphedema and currently doing PT lymphedema therapy with improvement. Last chemo on 01/30/23. Denies chills, diaphoresis, hematemesis, hematochezia, melena, FAUSTIN, dizziness, syncope, vision changes, neck pain, CP, SOB, orthopnea, palpitations, cough, sore throat, choking, otalgia, rhinorrhea, paresthesias, extremity weakness, other extremity edema, rashes, urinary symptoms. Academic Support Director/oncologist Dr Cardona, [facility], . Reports previously was in clinical trial at [facility] in [facility] however now following only with Dr Cardona. Dr Woods, interventional radiologist, [facility] in [facility] Allergies Allergy/AdvReac Type Severity Reaction Status Date / Time No Known Allergies Allergy Unverified 11/11/17 15:14 Home Medications Medication Instructions Recorded Confirmed Type cilostazol 50 mg tablet 50 mg PO BID 02/16/23 02/16/23 History cyclosporine 0.05 % eye drops in a 1 drp OPB BID 02/16/23 02/16/23 History dropperette (Restasis) dicyclomine 10 mg capsule 10 mg PO TID 02/16/23 02/16/23 History duloxetine 30 mg capsule,delayed 30 mg PO DAILY 02/16/23 02/16/23 History release enoxaparin 100 mg/mL subcutaneous 100 mg subcut BID 02/16/23 02/16/23 History syringe fentanyl 12 mcg/hr transdermal 12 mcg transdermal Q72H 02/16/23 02/16/23 History patch gabapentin 100 mg capsule 200 mg PO BID 02/16/23 02/16/23 History hydromorphone 2 mg tablet 2 mg PO Q4H PRN Pain 02/16/23 02/16/23 History melatonin 3 mg tablet 3 mg PO HS 02/16/23 02/16/23 History olanzapine 2.5 mg tablet 2.5 mg PO HS 02/16/23 02/16/23 History oxybutynin chloride 10 mg 10 mg PO PM 02/16/23 02/16/23 History tablet,extended release 24 hr polyethylene glycol 3350 17 gram 17 g PO DAILY 02/16/23 02/16/23 History oral powder packet (Miralax) varenicline 0.03 mg/spray nasal 1 spray intranasal BID 02/16/23 02/16/23 History spray (Tyrvaya) Past Med/Surg History Medical History (Updated 02/16/23 @ 20:17 by Chanda Jones PA-C) Chronic deep vein thrombosis (DVT) Primary cervical cancer with metastasis to other site Surgical History (Updated 02/16/23 @ 20:10 by Chanda Jones PA-C) History of vascular surgery history bilateral lower extremity thrombectomy and stenting History of appendectomy History of hysterectomy Family History (Updated 02/16/23 @ 20:03 by Chanda Jones PA-C) Other No significant family history Social History Smoking Status: Never smoker Preferred Language: Bolivian Feels Safe at Home: Yes Review of Systems Review of Systems: All systems reviewed & are unremarkable except as noted in HPI & below Physical Exam Physical Exam: General: no acute distress, chronic ill appearing female Head: normocephalic, atraumatic Eyes: PERRL, EOM's intact, conjunctiva non-injected, anicteric ENT: normal inspection external ears, nose, mucous membranes dry Neck: supple, trachea midline Lungs: clear, no respiratory distress, no wheezing/rhonchi/rales CV: tachycardia, regular rhythm, rate 102, no murmur Chest wall: +port right upper chest without surrounding erythema or edema Abd: normal BS, soft, +tender palpation epigastric and RUQ without rebound or guarding Ext: no cyanosis, no calf tenderness Neuro: A&O x 3, no focal deficits noted, normal affect Skin: warm, dry Results & Data Results & Data Vital Signs (Past 12 Hours) Vital Signs Temp Pulse Resp BP Pulse Ox O2 Del Method 02/16/23 15:08 112 H 02/16/23 15:00 110 H 22 117/71 95 Room Air 02/16/23 14:30 124/84 02/16/23 14:30 117 H 22 93 02/16/23 14:00 116 H 24 121/79 95 Room Air 02/16/23 13:30 108 H 20 118/75 93 Room Air 02/16/23 13:10 112 H 20 110/70 93 Room Air 02/16/23 11:30 112 H 17 124/85 96 Room Air 02/16/23 10:53 113 H 02/16/23 09:49 36.3 C L 128 H 17 113/68 98 Room Air Laboratory Results Short CBC 02/16/23 Range/Units 11:04 WBC 3.81 L (4.8-10.8) K/ul Hgb 10.4 L (12.0-16.0) g/dl Hct 34.1 L (37.0-47.0) % Plt Count 495 H (130-400) K/uL BMP 02/16/23 11:04 Sodium 138 Potassium 3.6 Chloride 102 Carbon Dioxide 25 BUN 17 Creatinine 0.55 L Glucose 102 H Calcium 9.9 Liver Function 02/16/23 Range/Units 11:04 Total Bilirubin 0.4 (0.2-1.0) mg/dl AST 13 (13-39) U/L ALT 8 (7-52) U/L Alkaline Phosphatase 87 (34-104) U/L Albumin 4.2 (3.4-5.0) gm/dl Diagnostic Findings Abdomen/Pelvis CT 02/16/23 10:50 CT OF THE ABDOMEN AND PELVIS WITH CONTRAST CLINICAL HISTORY: Diffuse abdominal pain. Cervical cancer. COMPARISON STUDY: None. TECHNIQUE: Following IV administration of 89 mL of Optiray, axial images of the abdomen and pelvis were obtained from the lung bases to the proximal femurs. Images were reviewed in the axial, sagittal, and coronal planes. IV contrast was administered without complication. Automated exposure control was utilized for the study. A dose lowering technique was utilized adhering to the principles of ALARA. CT DOSE: 874.07 mGy.cm FINDINGS: Please note that the chest CT will be reported separately. Innumerable cavitary lesions with associated groundglass opacity are better depicted on that exam. No pneumatosis, free air or portal venous gas is present. A small amount of abdominal and pelvic ascites is noted. Gallbladder is mildly distended. There is no adjacent infiltration. No hepatic lesions are present. There is no biliary or pancreatic ductal dilatation. Spleen, adrenal glands and pancreas are unremarkable. There are left-sided renal parapelvic cysts. Marked right renal atrophy is noted. The majority of the small bowel is mildly dilated and fluid- filled. The terminal ileum is decompressed. A discrete transition point is not identified. Fluid collections are present. There is a moderate amount of stool within the colon and rectum. The appendix is not visualized. Bilateral iliac vein stent appears patent. However, the right iliac vein stent is narrowed by suspected right external iliac lymphadenopathy which measures 2.5 x 2.4 cm. There is age indeterminate occlusion of the right external iliac artery on image 243. There is distal reconstitution. Mixed sclerosis and lucency within the posterior right iliac bone extends for 8.8 cm. No additional osseous lesions are identified. Asymmetric left thigh stranding is noted IMPRESSION: 1. Mildly dilated fluid-filled small bowel with decompressed terminal ileum. H owever, no transition point identified. The findings favor an enteritis/ileus. However, a partial small bowel obstruction could appear similar. Small amount of ascites. No pneumatosis, free air or portal venous gas. 2. Innumerable cavitary lesions within the lungs with adjacent ground glass opacity. These are better depicted on the chest CT. Please see that report for further description. 3. Pathologic right external iliac lymphadenopathy which results in narrowing of the iliac vein stent. However, stent appears patent. 4. Age indeterminate occlusion of the right external iliac artery with distal reconstitution. 5. Mildly distended gallbladder. However, no pericholecystic infiltration to strongly suggest acute cholecystitis. This could be correlated with right upper quadrant pain. 6. Moderate amount of stool within the colon and rectum. 7. Mixed sclerosis and lucency within the right iliac bone. This is nonspecific and a metastatic lesion cannot be excluded. 8. Asymmetric left groin/thigh stranding. No fluid collection. ACT 112: Negative or not required by law. Electronically signed by: Roderick Dykes M.D. 02/16/2023 2:20 PM Chest X-Ray 02/16/23 10:50 XR chest 1V portable CLINICAL HISTORY: Fever. COMPARISON STUDY: No previous studies for comparison. FINDINGS: Right internal jugular [id number] is in place. There is no pneumothorax or pleural effusion. There are multifocal airspace opacities within the lungs. This includes left midlung and right upper lung consolidation and patchy bilateral lower lung opacities. There is possible cavitation within the left midlung opacity. Cardiac size is normal. Mediastinal contours are unremarkable. IMPRESSION: Bilateral airspace opacities, as described above. Possible cavitation within the left midlung opacity. The findings favor an infectious process such as multifocal pneumonia. A neoplastic process is considered less likely however radiographic follow-up to ensure resolution is recommended. ACT 112: Negative or not required by law. Electronically signed by: Roderick Dykes M.D. 02/16/2023 11:[address] 02/16/23 11:[address] WITH CONTRAST CT DOSE: HISTORY: Abnormal chest x-ray. Bilateral airspace opacities. multifocal pneumonia TECHNIQUE: Multiaxial CT images of the chest were performed following the intravenous administration of contrast. A dose lowering technique was utilized adhering to the principles of ALARA. COMPARISON: Chest 02/16/2023. FINDINGS: There are old, healed bilateral rib fractures. No acute fractures within the chest. No suspicious lytic or blastic osseous lesions. The abdominal structures will be reported on the same day abdomen and pelvis CT. The thyroid gland enhances normally. Surgical clips within the right axilla. A right jugular central venous catheter terminates in the distal SVC. Normal esophagus. The heart is top normal in size. No pleural or pericardial effusions. Normal caliber thoracic aorta with no evidence for a dissection. The central pulmonary arteries appear patent. There is necrotic mediastinal and bilateral hilar lymphadenopathy. The dominant left hilar lymph node measures 2 cm. No pneumothorax. The central airways are patent. Multiple scattered irregular nodules seen throughout the lungs with associated groundglass halos. The majority of these demonstrate central cavitation. A dominant cavitary nodule within the right lower lobe on image 119 and measures 2.1 cm. A few the scattered nodules do not demonstrate central cavitation. Dominant solid nodule within the left upper lobe anteriorly on image 76 measures 2.1 cm. Additional patchy groundglass airspace opacities within the lung bases. IMPRESSION: 1. Multiple scattered irregular nodules seen throughout the lungs with associated groundglass halos. The majority of these demonstrate central cavitation. These favor cavitary metastatic foci. However, an atypical/fungal infection or septic pulmonary emboli also remain in the differential diagnosis. 2. Necrotic mediastinal and hilar lymphadenopathy likely representing metastatic disease. 3. The abdominal structures will be reported on the same day abdomen and pelvis CT. ACT 112: Negative or not required by law. Electronically signed by: Tirso Short M.D. 02/16/2023 2:21 PM Gallbladder Ultrasound 02/16/23 16:16 US gallbladder CLINICAL HISTORY: Right upper quadrant pain. COMPARISON STUDY: CT of the abdomen and pelvis performed earlier today. FINDINGS: No hepatic lesions are identified. There is trace perihepatic ascites. The pancreas is obscured. The gallbladder is moderately distended. However, no gallstones are identified. There is no gallbladder wall thickening. No sonographic Montanez sign was elicited. There is borderline dilatation of the common bile duct, measuring 7 mm. The right kidney is markedly atrophic. There is no right hydronephrosis. The pancreas is obscured. IMPRESSION: 1. Moderate gallbladder distention. However, no gallstones. No sonographic Montanez sign. No sonographic evidence for acute cholecystitis. 2. Mild biliary ductal dilatation. This could be correlated with liver function tests. 3. Trace perihepatic ascites. 4. Marked right renal atrophy. ACT 112: Negative or not required by law. Electronically signed by: Roderick Dykes M.D. 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
[2023-02-16 16:44] LABS: Phosphorus 3.8 mg/dl (2.5-4.9)
[2023-02-16] MEDS ORDERED: ENOXAPARIN 100 MG/1ML SYR SQ ONE (16:45)
--- NOTE | 2023-02-16 17:28 | Ultrasound Report ---
US gallbladder CLINICAL HISTORY: Right upper quadrant pain. COMPARISON STUDY: CT of the abdomen and pelvis performed earlier today. FINDINGS: No hepatic lesions are identified. There is trace perihepatic ascites. The pancreas is obsc ured. The gallbladder is moderately distended. However, no gallstones are identified. There is no gal lbladder wall thickening. No sonographic Montanez sign was elicited. There is borderline dilatation of the common bile duct, measuring 7 mm. The right kidney is markedly atrophic. There is no right hydron ephrosis. The pancreas is obscured. IMPRESSION: 1. Moderate gallbladder distention. However, no gallstones. No sonographic Montanez sign. No sonographi c evidence for acute cholecystitis. 2. Mild biliary ductal dilatation. This could be correlated with liver function tests. 3. Trace perihepatic ascites. 4. Marked right renal atrophy. ACT 112: Negative or not required by law. Electronically signed by: Roderick Dykes M.D. 02/16/2023 5:27 PM
[2023-02-16] MEDS ORDERED: HYDROmorphone INJ 0.5 MG/0.5 ML SYR IV STA (17:32)
[2023-02-16] MEDS ORDERED: MAGNESIUM SULFATE / D5W 1 GM/100 ML BAG IV ONE (18:34)
[2023-02-16] MEDS ORDERED: ARTIFICIAL TEARS OPB PRN (18:42)
[2023-02-16] MEDS: NSS + 20MEQ KCL 20 MEQ/1,000 ML BAG IV SCH (18:51)
[2023-02-16] MEDS: HYDROmorphone INJ 1 MG/ML SYRINGE IV PRN (21:46)
[2023-02-16] MEDS: ONDANSETRON INJ 2 MG/ML 2 ML VIAL IV PRN (21:46)
[2023-02-16] MEDS: OXYBUTYNIN CHLORIDE XL 5 MG TABCR PO SCH (21:54)
[2023-02-16] MEDS: GABAPENTIN 100 MG CAP PO SCH (21:54)
[2023-02-16] MEDS: DULoxetine HCL 30 MG CAP PO SCH (21:55)
[2023-02-16] MEDS: OLANZAPINE 2.5 MG TAB PO SCH (21:55)
[2023-02-16] MEDS: DICYCLOMINE HCL 10 MG CAP PO SCH (21:55)
[2023-02-16] MEDS: MELATONIN 3 MG TAB PO SCH (21:55)
[2023-02-16] MEDS: cilostazoL 100 MG TAB PO SCH (21:56)
[2023-02-16] MEDS: fentaNYL 12 MCG/HR TDSY TD SCH (22:11)
[2023-02-17] MEDS: CHECK fentaNYL PATCH PLACEMENT SCH ×3 (01:22→16:34)
[2023-02-17] MEDS: ONDANSETRON INJ 2 MG/ML 2 ML VIAL IV PRN ×4 (03:31→20:34)
[2023-02-17] MEDS: HYDROmorphone INJ 1 MG/ML SYRINGE IV PRN ×4 (03:31→20:34)
[2023-02-17 05:30] LABS: Hematocrit (blood only) 25.3 % (37.0-47.0); Hemoglobin 7.5 g/dl (12.0-16.0); Mean Corpuscular Hemoglobin 21.4 pg (25.0-34.0); Mean Corpuscular Hgb Conc 29.6 g/dL (32.0-36.0); Mean Corpuscular Volume 72.3 fL (80.0-100.0); Mean Platelet Volume 9.5 fL (9.4-12.4); Platelet Count 347 K/uL (130-400); RDW Coefficient of Variation 22.9 % (11.5-14.5); RDW Standard Deviation 59.7 fL (36.4-46.3); White Blood Count 3.09 K/ul (4.8-10.8)
[2023-02-17 05:32] LABS: Basophils # (auto) 0.05 K/uL (0.00-0.20); Basophils % (auto) 1.6 %; Eosinophils % (auto) 3.2 %; Immature Granulocytes # (auto) 0.03 K/uL (0.01-0.20); Lymphocytes # (auto) 0.89 K/uL (1.20-3.40); Lymphocytes % (auto) 28.8 %; Monocytes # (auto) 0.43 K/uL (0.11-0.59); Monocytes % (auto) 13.9 %; Neutrophils # (auto) 1.59 K/uL (1.40-6.50); Neutrophils % (auto) 51.5 %; Ovalocytes 1+; Tear Drop Cells 1+
[2023-02-17 05:40] LABS: Albumin Level 3.1 gm/dl (3.4-5.0); Bilirubin,Total 0.3 mg/dl (0.2-1.0); Calcium 8.4 mg/dl (8.6-10.3); Magnesium 1.6 mg/dl (1.7-2.4); Potassium 3.5 mmol/L (3.5-5.1)
[2023-02-17 05:50] LABS: Albumin Globulin Ratio 1.3 (0.9-2); BUN Creatinine Ratio 42.4 (10-20); Creatinine Clr Calc Pharmacy 172.2 ml/min; Est GFR (African American) 147.9 ml/min; Est GFR (Non-African American) 127.6 ml/min; Globulin 2.3 gm/dl (2.5-4.0); Phosphorus 2.4 mg/dl (2.5-4.9); Total Protein 5.4 gm/dl (6.0-8.3)
[2023-02-17] MEDS: NSS + 20MEQ KCL 20 MEQ/1,000 ML BAG IV SCH (06:15)
[2023-02-17] MEDS: GABAPENTIN 100 MG CAP PO SCH ×2 (08:27→20:37)
[2023-02-17] MEDS: cilostazoL 100 MG TAB PO SCH ×2 (08:27→20:38)
[2023-02-17] MEDS: ENOXAPARIN 100 MG/1ML SYR SQ SCH ×2 (08:28→20:36)
[2023-02-17] MEDS: DICYCLOMINE HCL 10 MG CAP PO SCH ×3 (08:28→20:38)
[2023-02-17] MEDS: DULoxetine HCL 30 MG CAP PO SCH ×2 (08:28→20:37)
[2023-02-17] MEDS: POLYETHYLENE (MIRALAX) 17 GM PACK PO SCH ×2 (08:29→14:57)
--- NOTE | 2023-02-17 10:46 | XRay Report ---
KUB CLINICAL HISTORY: Vomiting. Small bowel obstruction. FINDINGS: 2 AP, portable, supine abdominal radiographs are correlated with abdominal CT dated 023. Again seen are distended and gas-filled loops of small bowel in the midabdomen indicating persis tent obstruction. Mild/moderate fecal retention is noted in the colon. No evidence of intraperitoneal free air is seen on these supine images. There are no abnormal abdominal calcifications. Phleboliths are seen in the pelvis. Bilateral iliac stents are noted. The skeletal structures are osteopenic and appear intact. IMPRESSION: Persistent small bowel obstruction. Electronically signed by: Shaheen Blanca M.D. 02/17/2023 10:45 AM
[2023-02-17] MEDS: HEPARIN 100 UNIT/ML 5ML FLUSH FLUSH PRN (11:06)
--- NOTE | 2023-02-17 11:24 | Gastrointestinal Consultation ---
Date of Consultation February 17, 2023 Assessment & Plan (1) Abdominal pain: (2) Nausea & vomiting: (3) Primary cervical cancer with metastasis to other site: Attempt clear liquid diet today Will need to monitor H/H, though no overt GI bleeding, could be dilutional Transfuse PRN as per the primary team Continue supportive care with IV antiemetics, narcotic analgesics, and IV fluids No plans for endoscopic workup History of Present Illness Reason for Consultation: Nausea, Vomiting, Abdominal pain Attending Physician: Jared Cohen MD History of Present Illness Anel Whitfield is a pleasant 52 yo CF with a significant PMHx of Stage IV Cervical cancer with distant mets and Chronic DVT on anticoagulation therapy, who presented to the ER yesterday with nausea, vomiting and abdominal pain. Upon arrival to the ER, she was noted to have an H/H of 10.4/34.1. She underwent an CT abd/pelvis, showed findings favoring an enteritis/ileus. She was also noted to have a mildly distended GB. She underwent a RUQ US which showed moderate GB distention with no gallstones, but no evidence of acute cholecystitis. Of note, her LFT's are unremarkable. She was given IVF, pain meds and antiemetics, and was subsequently admitted. At the time I saw her, she still noted abdominal pain, and states that she had a BM yesterday, but not today. She continues to have nausea, and just received Zofran therapy, prior to my exam. She has not had any vomiting since her arrival. A KUB from this morning showed findings consistent with a SBO. She did have a drop in her H/H to 7.5/25.3. She notes no overt GI bleeding. She has no further complaints. Allergies Allergy/AdvReac Type Severity Reaction Status Date / Time No Known Allergies Allergy Unverified 11/11/17 15:14 Home Medications Medication Instructions Recorded Confirmed Type cilostazol 50 mg tablet 50 mg PO BID 02/16/23 02/16/23 History cyclosporine 0.05 % eye drops in a 1 drp OPB BID 02/16/23 02/16/23 History dropperette (Restasis) dicyclomine 10 mg capsule 10 mg PO TID 02/16/23 02/16/23 History duloxetine 30 mg capsule,delayed 30 mg PO DAILY 02/16/23 02/16/23 History release enoxaparin 100 mg/mL subcutaneous 100 mg subcut BID 02/16/23 02/16/23 History syringe fentanyl 12 mcg/hr transdermal 12 mcg transdermal Q72H 02/16/23 02/16/23 History patch gabapentin 100 mg capsule 200 mg PO BID 02/16/23 02/16/23 History hydromorphone 2 mg tablet 2 mg PO Q4H PRN Pain 02/16/23 02/16/23 History melatonin 3 mg tablet 3 mg PO HS 02/16/23 02/16/23 History olanzapine 2.5 mg tablet 2.5 mg PO HS 02/16/23 02/16/23 History oxybutynin chloride 10 mg 10 mg PO PM 02/16/23 02/16/23 History tablet,extended release 24 hr polyethylene glycol 3350 17 gram 17 g PO DAILY 02/16/23 02/16/23 History oral powder packet (Miralax) varenicline 0.03 mg/spray nasal 1 spray intranasal BID 02/16/23 02/16/23 History spray (Tyrvaya) Patient History Medical History Chronic deep vein thrombosis (DVT) Primary cervical cancer with metastasis to other site Surgical History History of vascular surgery history bilateral lower extremity thrombectomy and stenting History of appendectomy History of hysterectomy Family History Other No significant family history Social History Smoking Status: Never smoker Hx Alcohol Use: No Hx Substance Use: No Preferred Language: Macedonian Current Living Situation: Spouse Other Information That Helps Us Care for You: No Feels Safe at Home: Yes Safety Concerns: Feels Safe At This Time Review of Systems Review of Systems: All systems reviewed & are unremarkable except as noted in Subjective Physical Exam Constitutional: WD/WN, vitals as above Respiratory: normal respiratory effort, lungs clear to auscultation Cardiovascular: RRR, no murmur, no edema Gastrointestinal (Abdomen): normal bowel sounds, soft, nontender, no hepatosplenomegaly Skin: + pallor Psychiatric: A+Ox3, euthymic affect Results & Data Vital Signs (Past 12 Hours) Vital Signs Temp Pulse Pulse Resp BP Pulse Ox O2 Del Method 02/17/23 07:59 93 H 02/17/23 07:22 36.5 C 89 18 110/70 93 Room Air 02/17/23 03:03 36.4 C L 86 18 98/65 L 96 Room Air 02/17/23 00:33 109 H 02/16/23 23:13 36.4 C L 92 H 18 105/69 91 Room Air PG Care Time/CCT Total # of Minutes Spent Total Time Spent with Patient: Total time spent is greater than 50% in coordination of care (as documented) at patient's floor/unit and/or counseling patient: Coding Level of Care Code 17672 IN/OBS CONSULT LVL 4,60M Diagnoses Abdominal pain R10.9 Nausea & vomiting R11.2 Primary cervical cancer with metastasis to other site C53.9
--- NOTE | 2023-02-17 18:04 | Hospitalist Progress Note ---
Date of Service February 17, 2023 Assessment & Plan (1) Nausea & vomiting: (2) Abdominal pain: Plan: per admitting service notes with addendum: Patient is 52 y/o F with PMH stage IV cervical cancer with metastasis to lungs, pelvis & vertebrae, chronic thrombosis right femoral vein, BLE thrombectomy and stenting on chronic Lovenox and Pletal presented to ER with c/o N/V and abdominal pain. History recurrent N/V, abdominal pain, however intractable nausea, vomiting started yesterday In ER afebrile, P: 128-102, BP: 113/68, R: 20, 95% on RA CT ABD/PELVIS:Mildly dilated fluid-filled small bowel with decompressed terminal ileum. However, no transition point identified. The findings favor an enteritis/ileus. However, a partial small bowel obstruction could appear similar. Small amount of ascites. No pneumatosis, free air or portal venous gas. Mildly distended gallbladder. However, no pericholecystic infiltration to strongly suggest acute cholecystitis. Moderate amount of stool within the colon and rectum. GALLBLADDER US: Moderate gallbladder distention. However, no gallstones. No sonographic Montanez sign. No sonographic evidence for acute cholecystitis. Mild biliary ductal dilatation. This could be correlated with liver function tests. Trace perihepatic ascites. Marked right renal atrophy. In ER given 2 L NSS, Zofran, IV morphine with reported improvement in nausea and abdominal pain. No further vomiting Suspect enteritis vs ileus. No signs complete SBO at this time. No signs cholecystitis on gallbladder us. LFTs, Lipase WNL Blood cultures pending NPO for now Will hold on antibiotics currently Antiemetics, IV Dilaudid prn. Continue home fentanyl patch. Will hold home oral Dilaudid currently while receiving IV IVF Continue Bentyl as needed KUB in am CBC, CMP in am 02/17 Nausea and vomiting likely multifactorial including ileus secondary to fentanyl patch use, chemotherapy contributing, etc. Clinically improved today Advance diet to clear liquids for today Continue IV fluids GI consulted-no endoscopy planned for now, appreciate the recommendation (3) Hypomagnesemia: Plan: Magnesium: 1.6 Replace and monitor (4) Primary cervical cancer with metastasis to other site: Plan: History of metastatic cervical cancer. Metastasis to lungs, pelvis, vertebrae reported by patient. Initially diagnosed 2013 CT chest: Multiple scattered irregular nodules seen throughout the lungs with associated groundglass halos. The majority of these demonstrate central cavitation. These favor cavitary metastatic foci. However, an atypical/fungal infection or septic pulmonary emboli also remain in the differential diagnosis. Necrotic mediastinal and hilar lymphadenopathy likely representing metastatic disease. Patient without cough, shortness of breath. Suspect these are metastatic findings Last chemo on 01/30/2023 Continue home gabapentin, fentanyl patch, hold home oral Dilaudid while receiving IV Dilaudid Senior Portfolio Manager/oncologist Dr Cardona, [facility], (5) Chronic deep vein thrombosis (DVT): Plan: History of chronic thrombosis right femoral vein. History multiple lower extremity venous thrombectomy and stenting procedures, most recent in 2021 at [facility] in [facility] History LLE lymphedema Continue Lovenox, Pletal, per patient's IR and oncologist Continue outpatient PT lymphedema therapy DVT Prophylaxis Lovenox Full Code as per discussion with patient, however states if poor prognosis or requires prolonged ventilation would want care discontinued Follows with Dr Kristyn Brown for routine care Admission and Anticipated Discharge Date Admission Date: February 16, 2023 Subjective ff up for nausea/vomiting, etc Seen sitting up in bed, comfortable, not in distress In good spirits States she feels better today overall than yesterday Nausea seems to have slowed down, no vomiting this morning no Abdominal pain No other symptom Review of Systems Review of Systems: all noted and negative except for above Physical Exam Physical Exam: General- oriented x 3, not in distress, speaks in sentences with no effort or accessory muscle use Eyes- anicteric Neck- no JVD Lungs- clear breath sounds bilaterally, no rales/wheezes Heart- normal rate, regular rhythm; no murmurs Abdomen- normal bowel sounds, nondistended, soft, nontender Extremities- no pretibial edema, no calf tenderness Neuro- alert, oriented x 3; no gross focal neurologic deficits Skin- warm & dry Results & Data Results & Data Vital Signs (Past 12 Hours) Vital Signs Temp Pulse Pulse Resp BP Pulse Ox O2 Del Method 02/17/23 17:29 119 H 02/17/23 15:18 36.6 C 97 H 18 94/63 L 94 Room Air 02/17/23 11:37 36.7 C 87 18 109/65 94 Room Air 02/17/23 08:30 Room Air 02/17/23 07:59 93 H 11/18/23 07:22 36.5 C 89 18 110/70 93 Room Air all noted and reviewed including below
[2023-02-17] MEDS: OXYBUTYNIN CHLORIDE XL 5 MG TABCR PO SCH (20:37)
[2023-02-17] MEDS: OLANZAPINE 2.5 MG TAB PO SCH (20:37)
[2023-02-17] MEDS: MELATONIN 3 MG TAB PO SCH (20:41)
--- OUTSIDE RECORDS SUMMARY | 2023-02-17 21:36 | External Medical Summary | Summary of Care ---
Author Name Unknown Organization [facility] Address [address] [place] [address] Phone [phone] Care Team Providers Care Lab Tech Name Role Phone Kristyn Brown MD Primary Care Provid er Reason for Visit * Auth/Cert Specialty Diagnoses / Procedures Referred By Dean t Referred To Contact Diagnoses Iron deficiency anemia, unspecified iron deficiency anemia type Abnormal weight loss Nausea Cancer of cervix (HCC) Iron deficiency anemia, unspecified iron deficiency anemia type [D50.9] Abnormal weight loss [R63.4] Nausea [R11.0] Cancer of cervix (HCC) [C53.9] Procedures COLONOSCOPY, DIAGNOSTIC (RECTUM) COLONOSCOPY FLEXIBLE PROXIMAL DIAGNOSTIC Referral ID Status Reason Start Date Expiration Date Visits Re quested Visits Authorized [id number] [phone] Encounter Details Date Type Department Care Team Description 12/07/2022 Hospital Encounter [facility]O [facility], Endoscopy Room [facility] [address] [place] [id number] Armand Walters DO [address] [facility] [place] [address] Colonoscopy Allergies Active Allergy Reactions Severity Noted Date Comments Cephalexin Rash Low 01/05/2021 documented as of this encounter (statuses as of 12/08/2022) Medications Medication Sig Dispensed Refills Start Date End Date Status Oxybutynin Chloride ER 10 MG Oral Tablet Extended Release 24 Hour (Ditropan XL) Take 1 Tab by mouth daily. 30 Tab 11 02/05/2020 Active Desonide 0.05 % External Cream Apply to affected areas (on face) twice daily 0 09/02/2020 Active hydrOXYzine HCl 10 MG Oral Tablet (Atarax) Take 10 mg by mouth. 0 09/03/2020 Active Melatonin 3 MG Oral Tablet TAKE 1 TABLET BY MOUTH EVERYDAY AT BEDTIME 0 05/03/2020 Active Ondansetron HCl 4 MG Oral Tablet (Zofran) take 1 tablet by mouth every 4 hours 0 06/06/2020 Active Sertraline HCl 100 MG Oral Tablet (Zoloft) Take by mouth 50 mg daily . 0 Active Mupirocin 2 % External Ointment (Bactroban) Apply topically to affected area 2 times a day. Apply to the nose twice daily 22 g 0 09/13/2020 Active Additional Information Patient not taking.Reported on 12/05/2022 Enoxaparin Sodium 150 MG/ML Subcutaneous Solution (Lovenox) Inject 128 mg under the skin every 12 hours. 0 Active Cilostazol 50 MG Oral Tablet (Pletal) Take 1 Tablet by mouth in the morning and 1 Tablet before bedtime. 0 10/13/2020 Active Fluocinonide 0.05 % External Solution Apply topically to affected area . 0 06/21/2021 Active Gabapentin 100 MG Oral Capsule (Neurontin) Take 2 Capsules by mouth in the morning and 2 Capsules before bedtime. 0 05/26/2021 Active OLANZapine 2.5 MG Oral Tablet (zyPREXA) Take 1 Tablet by mouth at bedtime. 0 06/10/2021 Active Fluticasone Propionate 50 MCG/ACT Nasal SuspensionIndications :Acute sinusitis, recurrence not specified, unspecified location,Bronchitis due to COVID-19 virus,COVID-19,Malign ant neoplasm of cervix, unspecified site (HCC),LRTI (lower respiratory tract infection) Administer into each nostril 2 Sprays in the morning. 1 Each 0 07/22/2021 Active Additional Information Patient not taking.Reported on 12/05/2022 Ventolin HFA 108 (90 Base) MCG/ACT Inhalation Aerosol SolutionIndications:S OB (shortness of breath) Inhale by mouth 2 Puffs every 4 hours as needed for Wheezing or Dyspnea. 1 g 1 07/23/2021 Active Additional Information Patient not taking.Reported on 12/05/2022 HYDROmorphone 2 mg OR TABS Take 0.5 Tablets by mouth every 4 hours as needed. 0 Active DULoxetine HCl 30 MG Oral Capsule Delayed Release Particles Take 1 Capsule by mouth in the morning. 0 Active Buprenorphine 10 MCG/HR Transdermal Patch Weekly Place topically on the skin 10 mcg once a week . 0 Active prednisoLONE Acetate 1 % Ophthalmic Suspension 1 Drop in the morning AND 1 Drop at noon AND 1 Drop before bedtime. 0 Active Alphagan P 0.1 % Ophthalmic Solution (Brimonidine Tartrate) Instill into eye 1 Drop 3 times a day . 0 Active Melatonin 1 MG Oral Tablet Take 3 Tablets by mouth at bedtime. 0 Active fentaNYL 12 MCG/HR Transdermal Patch [address] 1 Patch topically on the skin every 3 days. 0 Active Tyrvaya 0.03 MG/ACT Nasal Solution (Varenicline Tartrate) Administer into nostril 2 times a day. Uses for dry eyes 0 Active cycloSPORINE 0.05 % Ophthalmic Emulsion Instill 1 Drop into both eyes in the morning and 1 Drop before bedtime. 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 Adjustment disorder with anxiety 020 Hypercalcemia 12/13/2018 Anxiety 07/31/2017 Overview: Zoloft Ureteral stricture, right 07/26/2017 Encounter for follow-up surveillance of cervical cancer 05/21/2017 Deep vein thrombosis (DVT) 10/10/2016 Overview: Recurred in 10/2017 (Initial x in 2017) History of antineoplastic chemotherapy 0 10/10/2016 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 Leg edema, right 07/20/2016 History of radiation therapy 07/20/2016 History of infertility, female 7 Malignant neoplasm of cervix 04/02/2013 documented as of this encounter (statuses as of 12/08/2022) Immunizations Name Administration Dates Next Due COVID-19 mRNA, LNP-s, No Pre serve, 2-Dose Series (AMX) 06/03/2020,05/11/2020 Pneumococcal Polysaccharide PPV23 (Pneumovax) Seasonal Influenza Virus Vac cine, Unspecified Formulation 12/23/2019,01/13/2019 Seasonal Influenza, Quadriva lent,with Preserve, 3 yr & Above, IM 01/13/2019 TD - Tetanus/Diptheria (ADULT) 02/06/1988 TDAP (age 10 and older)(Boostrix) 09/15/2008 Zoster Vaccine Recombinant (Shingrix) 04/22/2021 documented as of this encounter Social History Tobacco Use Types Packs/Day Years Used Date Smoking Tobacco: Never Smokeless Tobacco: Never Alcohol Use Standard Drinks/Week Comments Never 0 (1 standard drink = 0.6 oz pur e alcohol) Alcohol Habits Answer Date Recorded How often do you have a drink containing alcohol ? 2-3 times a week 04/07/2019 How many drinks containing a lcohol do you have on a typical day when you are drinking? Not asked How often do you have six or more drinks on one occasion? Not asked Sex Assigned at Date Recorded Not on file Job Start Date Occupation Industry Not on file Not on file Not on file documented as of this encounter Last Filed Vital Signs Vital Sign Reading Time Taken Comments Blood Pressure 101/46 12/07/2022 2:21 PM EDT Pulse 76 12/07/2022 2:21 PM EDT Temperature 36.1 C (97 F) 12/07/2022 2:21 PM EDT Respiratory Rate 16 12/07/2022 2:21 PM EDT Oxygen Saturation 95% 12/07/2022 2:21 PM EDT Inhaled Oxygen Concentration - - Weight 65.8 kg (145 lb) 12/07/2022 1:29 PM EDT Height 162.6 cm (5' 4") 12/07/2022 1:29 PM EDT Body Mass Index 24.89 12/07/2022 1:29 PM EDT documented in this encounter H&P Notes * Armand Walters, DO - 12/07/2022 1:25 PM EDT Endoscopy Pre-Procedure Assessment Name: Anel Whitfield Date: 12/07/2022 Time: 1:25 PM Procedure(s): Colonoscopy; with Indication(s) of colon polyp surveillance Endoscopy Pre-Procedure Assessment: Prior to the procedure, the patient is identified. The patient's history, medications and allergieshave been reviewed. The patient is competent. The risks and benefits of the proposed procedure and the planned sedation have been discussed with the patient. All questions have been answered and informed consent for the procedure has been obtained. Prior to Admission medications Medication Sig Last Dose Discont. cycloSPORINE 0.05 % Ophthalmic Emulsion Instill 1 Drop into both eyes in the morning and 1 Drop before bedtime. Past Week fentaNYL 12 MCG/HR Transdermal Patch [address] 1 Patch topically on the skin every 3 days. 12/07/2022 Tyrvaya 0.03 MG/ACT Nasal Solution (Varenicline Tartrate) Administer into nostril 2 times a day. Uses for dry eyes Past Week DULoxetine HCl 30 MG Oral Capsule Delayed Release Particles Take 1 Capsule by mouth in the morning.12/07/2022 HYDROmorphone 2 mg OR TABS Take 0.5 Tablets by mouth every 4 hours as needed. 12/07/2022 Melatonin 1 MG Oral Tablet Take 3 Tablets by mouth at bedtime. Past Week Cilostazol 50 MG Oral Tablet (Pletal) Take 1 Tablet by mouth in the morning and 1 Tablet before bedtime. Past Week Gabapentin 100 MG Oral Capsule (Neurontin) Take 2 Capsules by mouth in the morning and 2 Capsules before bedtime. 12/07/2022 OLANZapine 2.5 MG Oral Tablet (zyPREXA) Take 1 Tablet by mouth at bedtime. Past Week Enoxaparin Sodium 150 MG/ML Subcutaneous Solution (Lovenox) Inject 128 mg under the skin every 12 hours. Past Week Melatonin 3 MG Oral Tablet TAKE 1 TABLET BY MOUTH EVERYDAY AT BEDTIME Past Week Ondansetron HCl 4 MG Oral Tablet (Zofran) take 1 tablet by mouth every 4 hours Past Month Oxybutynin Chloride ER 10 MG Oral Tablet Extended Release 24 Hour (Ditropan XL) Take 1 Tab by mouthdaily. Past Week Alphagan P 0.1 % Ophthalmic Solution (Brimonidine Tartrate) Instill into eye 1 Drop 3 times a day . Patient not taking: Reported on 12/05/2022 Not Taking Buprenorphine 10 MCG/HR Transdermal Patch Weekly Place topically on the skin 10 mcg once a week . Patient not taking: Reported on 12/07/2022 Not Taking prednisoLONE Acetate 1 % Ophthalmic Suspension 1 Drop in the morning AND 1 Drop at noon AND 1 Drop before bedtime. Patient not taking: Reported on 12/05/2022 Not Taking Ventolin HFA 108 (90 Base) MCG/ACT Inhalation Aerosol Solution Inhale by mouth 2 Puffs every 4 hours as needed for Wheezing or Dyspnea. Patient not taking: Reported on 12/05/2022 Not Taking Fluocinonide 0.05 % External Solution Apply topically to affected area . Patient not taking: Reported on 12/05/2022 Not Taking Fluticasone Propionate 50 MCG/ACT Nasal Suspension Administer into each nostril 2 Sprays in the morning. Patient not taking: Reported on 12/05/2022 Not Taking Desonide 0.05 % External Cream Apply to affected areas (on face) twice daily Patient not taking: Reported on 12/05/2022 Not Taking hydrOXYzine HCl 10 MG Oral Tablet (Atarax) Take 10 mg by mouth. Patient not taking: Reported on 12/05/2022 Not Taking Mupirocin 2 % External Ointment (Bactroban) Apply topically to affected area 2 times a day. Apply to the nose twice daily Patient not taking: Reported on 12/05/2022 Not Taking Sertraline HCl 100 MG Oral Tablet (Zoloft) Take by mouth 50 mg daily . Patient not taking: Reported on 12/05/2022 Not Taking Review of patient's allergies indicates: Allergen Reactions Cephalexin Rash Ht 1.626 m (5' 4") | Wt 65.8 kg (145 lb) | BMI 24.89 kg/m | BSA 1.72 m Physical Exam: Mental Status Examination: alert and oriented. Airway Examination: normal oropharyngeal airway and neck mobility. Respiratory Examination: clear to auscultation. CV Examination: normal. ASA Grade: III - A patient with severe systemic disease. Abdomen: soft This patient has undergone a preprocedural evaluation. A determination has been made to proceed with the planned procedure under [facility] procedural guidelines and the [facility] Non-Emergent, Elective Medical Services and Treatment Recommendations (published on 07-08-19). The community and hospital prevalence of COVID-19 has been discussed as well as this patient's specific risks associated with SARS-CoV-19 infection. Based upon the clinical acuity and patient-specific care considerations, this procedure is deemed a Tier II - Intermediate acuity treatment or service with either progression or the threat of progressive disease related to the delay in treatment. Not providing the service has the potential for increasing morbidity or mortality. After reviewing the risks and benefits, the patient is deemed in satisfactory condition to undergo the procedure. The anesthesia plan is to use general anesthesia. I have discussed the risks of colonoscopy to include bleeding, infection, perforation, pain, missed polyps, and need for follow-up studies. Armand Walters DO 12/07/2022 documented in this encounter Procedure Notes * Kristyn Brown MD - 12/07/2022 1:33 PM EDTAssociated Order(s): COLONOSCOPY [facility] Patient Name: Anel Whitfield Procedure Date: 12/07/2022 1:33 PM Date of : 1970 Admit Type: Outpatient Note Status: Finalized Date of : 1970 Admit Type: Outpatient Age: 52 Room: [facility] Gender: Female Note Status: Finalized Procedure: Colonoscopy Indications: High risk colon cancer surveillance: Personal history of colonic polyps, Last colonoscopy: April 2019 Providers: Armand Walters DO (Doctor), Kenia Shultz (Fellow) Referring MD: Kristyn Brown (Referring MD), Aviva Cardona MD (Referring MD) Medicines: General Anesthesia Complications: No immediate complications. Estimated blood loss: Minimal. Procedure: Pre-Anesthesia Assessment: - Prior to the procedure, a History and Physical was performed, and patient medications, allergies and sensitivities were reviewed. The patient's tolerance of previous anesthesia was reviewed. - The risks and benefits of the procedure and the sedation options and risks were discussed with the patient. All questions were answered and informed consent was obtained. - Patient identification and proposed procedure were verified prior to the procedure by the physician, the nurse and the marketing ambassador. The procedure was verified in the procedure room. - Pre-procedure physical examination revealed no contraindications to sedation. - ASA Grade Assessment: III - A patient with severe systemic disease. - After reviewing the risks and benefits, the patient was deemed in satisfactory condition to undergo the procedure. - The anesthesia plan was to use general anesthesia. - Immediately prior to administration of medications, the patient was re- assessed for adequacy to receive sedatives. - The heart rate, respiratory rate, oxygen saturations, blood pressure, adequacy of pulmonary ventilation, and response to care were monitored throughout the procedure. - The physical status of the patient was re-assessed after the procedure. After I obtained informed consent, the scope was passed under direct vision. All instruments were visually inspected immediately before and after removal from the patient to ensure they are fully intact. Throughout the procedure, the patient's blood pressure, pulse, and oxygen saturations were monitored continuously. The [id number]-[id number] Colonoscope ([id number]) was introduced through the anus and advanced to the terminal ileum. The patient tolerated the procedure well. The quality of the bowel preparation was adequate to identify polyps 6 mm and larger in size. The colonoscopy was technically difficult and complex due to restricted mobility of the colon. Successful completion of the procedure was aided by applying abdominal pressure. I was present and participated during the entire procedure from insertion to removal of the endoscope. Findings & Specimens: The perianal and digital rectal examinations were normal. Pertinent negatives include normal sphincter tone. Internal hemorrhoids were found during retroflexion. The hemorrhoids were mild. The exam was otherwise without abnormality. Impression: - Internal hemorrhoids. - The examination was otherwise normal. Recommendation: - The patient will be observed post-procedure, until all discharge criteria are met. - Advance diet as tolerated today. - Repeat colonoscopy in 3 years because the bowel preparation was suboptimal. - Return to GI office PRN. Armand Walters DO 12/07/2022 2:09:36 PM This report has been signed electronically. Kenia Shultz, documented in this encounter Nursing Notes * Racheal Rodriguez RN - 12/07/2022 2:56 PM EDT Patient is alert, pain free, passing flatus and tolerating po fluids prior to discharge. Patient has been visited by Dr. Vivas. Patient has received and demonstrates understanding of discharge instructions. Patient ambulated to private auto accompanied by endo staff. * Amado Gottlieb RN - 12/07/2022 2:04 PM EDT See anesthesia record for medication administered during procedure. Amado Gottlieb RN Pre cleaning of scope at the bedside started by body technician. Mid abdominal pressure given per Dr. Armand Walters to assist with scope advancement. Pt tolerated well * Edith Henriquez RN - 12/07/2022 1:31 PM EDT Patient prepped and ready for procedure. Call [place] in reach. * Edith Henriquez RN - 12/07/2022 1:03 PM EDT Patient does not meet criteria for testing. The following pt discharge instructions reviewed with pt prior to prodedure: No driving today. No alcohol today. No signing of legal documents. Rest as much as possible today and can return to normal activities tomorrow. No operating any heavy equipment today. Diet as tolerated. Pt verbalized understanding. documented in this encounter Plan of Treatment Health Maintenance Due Date Last Done Comments Hepatitis B (1 of 3 - 3-dose series) 1970 Depression Screening 1982 HIV Screening 1985 Hepatitis C Screening 1988 Pneumococcal Vaccine: Pediatrics (0 to 5 Years) and At-Risk Patients (6 to 64 Years) (2 - PCV) 11/13/2014 11/13/2013 Mammogram 03/14/2017 03/14/2016, 02/01, 11/05/2013 DTaP,Tdap,and Td Vaccines (3 - Td or Tdap) 09/15/2018 09/15/2008, 02/06/1988 Zoster Vaccines (2 of 2) 06/17/2021 04/22/2021 *BASELINE EKG FOR HTN 2021 COVID-19 Vaccine (5 - Pfizer series) 09/05/2021 07/11/2021, 11/26/2020, 06/03/2020, Additional history exists Influenza Vaccine (FLU shot) (#1) 2022 12/23/2019, 01/13/2019, 01/13/2019 COLONOSCOPY-EVERY 5 YRS AGES 18-100 12/08/2027 12/07/2022, 04/08/2019, 04/08/2019, Additional history exists GARDASIL-HPV IMMUNIZATION SERIES Aged Out No longer eligible based on patient's age to complete this topic MENINGOCOCCAL (MENACTRA/MENVEO) Aged Out No longer eligible based on patient's age to complete this topic documented as of this encounter Medical Devices Not on filedocumented as of this encounter Procedures Procedure Name Priority Date/Time Associated Diagnosis Comments COLONOSCOPY 12/07/2022 1:33 PM EDT documented in this encounter Results * COLONOSCOPY (12/07/2022 1:33 PM EDT) 12/07/2022 1:33 PM EDT Procedure Note Kristyn Brown MD - 12/07/2022 1:33 PM EDT [facility] Patient Name: Anel Whitfield Procedure Date: 12/07/2022 1:33 PM Date of : 1970 Admit Type: Outpatient Note Status:Finalized Date of : 1970 Admit Type: Outpatient Age: 52 Room: [facility] Gender: Female Note Status: Finalized Procedure: Colonoscopy Indications: High risk colon cancer surveillance: Personalhistory of colonic polyps, Last colonoscopy: April 2019 Providers: Armand Walters DO (Doctor), Kenia Shultz(Fellow) Referring MD: Kristyn Brown (Referring MD), Kelly Cardona MD (Referring MD) Medicines: General Anesthesia Complications: No immediate complications. Estimated blood loss:Minimal. Procedure: Pre-Anesthesia Assessment: - Prior to the procedure, a History and Physicalwas performed, and patient medications, allergies and sensitivities werereviewed. The patient's tolerance of previous anesthesia was reviewed. - The risks and benefits of the procedure and thesedation options and risks were discussed with the patient. All questions wereanswered and informed consent was obtained. - Patient identification and proposed procedurewere verified prior to the procedure by the physician, the nurse and the marketing ambassador.The procedure was verified in the procedure room. - Pre-procedure physical examination revealed nocontraindications to sedation. - ASA Grade Assessment: III - A patient with severesystemic disease. - After reviewing the risks and benefits, thepatient was deemed in satisfactory condition to undergo the procedure. - The anesthesia plan was to use generalanesthesia. - Immediately prior to administration ofmedications, the patient was re-assessed for adequacy to receive sedatives. - The heart rate, respiratory rate, oxygensaturations, blood pressure, adequacy of pulmonary ventilation, and response to care weremonitored throughout the procedure. - The physical status of the patient wasre-assessed after the procedure. After I obtained informed consent, the scope waspassed under direct vision. All instruments were visually inspected immediatelybefore and after removal from the patient to ensure they are fully intact. Throughout the procedure, the patient's bloodpressure, pulse, and oxygen saturations were monitored continuously. The [id number] ([id number]) was introduced through the anus and advanced to the terminalileum. The patient tolerated the procedure well. The quality of the bowelpreparation was adequate to identify polyps 6 mm and larger in size. The colonoscopy wastechnically difficult and complex due to restricted mobility of the colon. Successfulcompletion of the procedure was aided by applying abdominal pressure. I was present and participated during the entireprocedure from insertion to removal of the endoscope. Findings & Specimens: The perianal and digital rectal examinations were normal. Pertinentnegatives include normal sphincter tone. Internal hemorrhoids were found during retroflexion. The hemorrhoidswere mild. The exam was otherwise without abnormality. Impression: - Internal hemorrhoids. - The examination was otherwise normal. Recommendation: - The patient will be observed post-procedure,until all discharge criteria are met. - Advance diet as tolerated today. - Repeat colonoscopy in 3 years because the bowelpreparation was suboptimal. - Return to GI office PRN. Armand Walters DO 12/07/2022 2:09:36 PM This report has been signed electronically. Kenia Shultz, Kristyn Brown MD [facility] documented in this encounter Administered Medications Inactive Administered Medications - up to 3 most recent administrations Medication Order MAR Action Action Date Dose Rate Site Acetaminophen (Tylenol) tab 650 mg 650 mg, Oral, PRN Pain, Mild, Starting on Sun12/07/22 at 1420, Until Tanya 12/07/22 at 1856, For 1 dose, Maximum of 4 grams (4000 mg) per day., Post-op influenza virus vaccine, quadrivalent (Flulaval Quad) inj 0.5 mL Intramuscular, 0.5 mL (1 Syringe), Add Lot# and Steelworker in Immunization Info section of MAR ! Store in Refrigerator SHAKE WELL PRIOR TO ADMINISTRATION RX WASTE CODE- BKC, ONCE, 1 dose, On Tanya 12/07/22 at 1500, Post-op isolyte-S pH 7.4 infusion Intravenous, at 100 mL/hr, Plasma-LYTE 148, isolyte-S, and isolyte-S pH 7.4 are considered equivalent - including for MAR barcode scanning., CONTINUOUS, Starting on Sun12/07/22 at 1345, Until Sun12/07/22 at 1856, Pre-Op Continue from Pre-Op 12/07/2022 1:39 PM EDT 100 mL/hr New Bag 12/07/2022 1:31 PM EDT 100 mL/hr documented in this encounter Active and Recently Administered Medications Times are shown in EDT. Scheduled Medication Order 12/05/2022 12/06/2022 12/07/2022 influenza virus vaccine, quadrivalent (Flulaval Quad) inj 0.5 mL Intramuscular, 0.5 mL (1 Syringe), Add Lot# and Steelworker in Immunization Info section of MAR ! Store in Refrigerator SHAKE WELL PRIOR TO ADMINISTRATION RX WASTE CODE- BKC, ONCE, 1 dose, On Tanya 12/07/22 at 1500, Post-op Continuous Medication Order 12/05/2022 12/06/2022 12/07/2022 isolyte-S pH 7.4 infusion Intravenous, at 100 mL/hr, Plasma-LYTE 148, isolyte-S, and isolyte-S pH 7.4 are considered equivalent - including for MAR barcode scanning., CONTINUOUS, Starting on Tanya 12/07/22 at 1345, Until Tanya 12/07/22 at 1856, Pre-Op 1331 (New Bag - Prov ider: Edith Henriquez RN)1339 (Continue from Pre-Op - Provider: Barak Do CRNA)1403 (Stopped - Provider: Barak Do CRNA) PRN Medication Order 12/05/2022 12/06/2022 12/07/2022 Acetaminophen (Tylenol) tab 650 mg 650 mg, Oral, PRN Pain, Mild, Starting on Tanya 12/07/22 at 1420, Until Tanya 12/07/22 at 1856, For 1 dose, Maximum of 4 grams (4000 mg) per day., Post-op documented in this encounter Advance Directives Latest Code Status on File Code Status Date Activated Date Inactivated Comments Full Code 01/25/2018 9:42 AM 01/25/2018 3:19 PM Thi s order reflects the patients wishes and were consensually agreed upon. Code Status History Code Status Date Activated Date Inactivated Comments Full Code 01/04/2018 10:17 AM 01/04/2018 3:58 PM This order reflects the patients wishes and were consensually agreed upon. Full Code 08/03/2017 10:26 AM 08/03/2017 4:49 PM This o rder reflects the patients wishes and were consensually agreed upon. Full Code 04/13/2017 12:21 PM 04/16/2017 11:25 AM Thi s order reflects the patients wishes and were consensually agreed upon. Full Code 03/30/2017 7:25 AM 03/30/2017 12:42 PM Th is order reflects the patients wishes and were consensually agreed upon. Care Teams Lab Tech Relationship Specialty Start Date End Date Kristyn Brown MD [address] [place] [facility] [place] [address] PCP - General Family Medicine 08/08/21 documented as of this encounter
--- OUTSIDE RECORDS SUMMARY | 2023-02-17 21:36 | External Medical Summary | Summary of Care ---
Author Name Unknown Organization [facility] Address [address] [facility] [place] [address] Phone [phone] Care Team Providers Care Concaving Machine Operator Name Role Phone Kristyn Brown MD Primary Care Provid er Encounter Details Date Type Department Care Team Description 11/29/2022 Telephone Access Center, [address] *DO NOT REMOVE THIS DEPARTMENT* [place] [id number] Request, External Referral Allergies Active Allergy Reactions Severity Noted Date Comments Cephalexin Rash Low 01/05/2021 documented as of this encounter (statuses as of 11/30/2022) Medications Medication Sig Dispensed Refills Start Date [...] twice daily 22 g 0 09/13/2020 Active Enoxaparin Sodium 150 MG/ML Subcutaneous Solution (Lovenox) Inject 128 mg under the skin every 12 hours. 0 Active Cilostazol 50 MG Oral Tablet (Pletal) Take by mouth 50 mg 2 times a day . 0 10/13/2020 Active Fluocinonide 0.05 % External Solution Apply topically to affected area . 0 06/21/2021 Active Gabapentin 100 MG Oral Capsule (Neurontin) Take by mouth 200 mg . 0 05/26/2021 Active OLANZapine 2.5 MG Oral Tablet (zyPREXA) Take by mouth 2.5 mg . 0 06/10/2021 Active Fluticasone Propionate 50 MCG/ACT Nasal SuspensionIndications :Acute sinusitis, recurrence not specified, unspecified location,Bronchitis due to COVID-19 virus,COVID-19,Malign ant neoplasm of cervix, unspecified site (HCC),LRTI (lower respiratory tract infection) Administer into each nostril 2 Sprays in the morning. 1 Each 0 07/22/2021 Active Ventolin HFA 108 (90 Base) MCG/ACT Inhalation Aerosol SolutionIndications:S OB (shortness of breath) Inhale by mouth 2 Puffs every 4 hours as needed for Wheezing or Dyspnea. 1 g 1 07/23/2021 Active HYDROmorphone 2 mg OR TABS Take by mouth 2 mg every 4 hours as needed . 0 Active DULoxetine HCl 30 MG Oral Capsule Delayed Release Particles (Cymbalta) Take by mouth 30 mg in the morning. 0 Active Buprenorphine 10 MCG/HR Transdermal Patch Weekly Place topically on the skin 10 mcg once a week . 0 Active prednisoLONE Acetate 1 % Ophthalmic Suspension (prednisoLONE Acetate P-F) 1 Drop in the morning AND 1 Drop at noon AND 1 Drop before bedtime. 0 Active Alphagan P 0.1 % Ophthalmic Solution (Brimonidine Tartrate) Instill into eye 1 Drop 3 times a day . 0 Active Melatonin 1 MG Oral Tablet Take by mouth 3 mg before bedtime. 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 * Telephone Encounter - EL Eid - 11/30/2022 11:00 AM EDT LMOM for pt to call back to schedule * Telephone Encounter - Cindy Durant/Or EL De León - 11/29/2022 5:18 PM EDT [facility] requesting colonoscopy appt. Order scanned into patient's chart. documented in this encounter Plan of Treatment Upcoming Encounters Date Type Specialty Care Team Description 12/07/2022 Hospital Encounter Endoscopy Armand Walters, DO [address] [place] [address] 12/07/2022 Surgery Endoscopy Armand Walters, DO [address] [place] [address] COLONOSCOPY FLEXIBLE PROXIMAL DIAGNOSTIC Scheduled Procedures Name Priority Associated Diagnoses Date/Ti me COLONOSCOPY FLEXIBLE PROXIMAL DIAGNOSTIC Iron deficiency anemia, unspecified iron deficiency anemia type Abnormal weight loss Nausea Cancer of cervix (HCC) 12/07/2022 1:45 PM EDT Health Maintenance Due Date Last Done Comments Hepatitis B (1 of 3 - 3-dose series) 1970 Depression Screening, Annual for Pts 12 and Over 1982 HIV Screening 1985 Hepatitis C Screening 1988 Mammogram 2010 Pneumococcal Vaccine: Pediatrics (0 to 5 Years) and At-Risk Patients (6 to 64 Years) (2 - PCV) 11/13/2014 11/13/2013 DTaP,Tdap,and Td Vaccines (3 - Td or Tdap) 09/15/2018 09/15/2008, 02/06/1988 Diabetes Screening 07/26/2020 07/26/2017 Zoster Vaccines (2 of 2) 06/17/2021 04/22/2021 *BASELINE EKG FOR HTN 2021 COVID-19 Vaccine (5 - Pfizer series) 09/05/2021 07/11/2021, 11/26/2020, 06/03/2020, Additional history exists Influenza Vaccine (FLU shot) (#1) 2022 12/23/2019, 01/13/2019, 01/13/2019 COLONOSCOPY-EVERY 5 YRS AGES 18-100 04/08/2024 04/08/2019, 04/08/2019, 02/13/2014, Additional history exists GARDASIL-HPV IMMUNIZATION SERIES Aged Out No longer eligible based on patient's age to complete this topic MENINGOCOCCAL (MENACTRA/MENVEO) Aged Out No longer eligible based on patient's age to complete this topic documented as of this encounter Medical Devices Not on filedocumented as of this encounter Advance Directives Latest Code Status [...] and were consensually agreed upon. Care Teams Concaving Machine Operator Relationship Specialty Start Date End Date Kristyn Brown MD [address] [place] [id number] PCP - General Family Medicine 08/08/21 documented as of this encounter
--- OUTSIDE RECORDS SUMMARY | 2023-02-17 21:36 | External Medical Summary | Summary of Care ---
Author Name Unknown Organization [facility] Address [address] [facility] [place] [address] Phone [phone] Care Team Providers Care Process Area Supervisor Name Role Phone Kristyn Brown MD Primary Care Provid er Encounter Details Date Type Department Care Team Description 11/29/2022 Telephone Access Center, [address] *DO NOT REMOVE THIS DEPARTMENT* [...] mRNA, LNP-s, No Pre serve, 2-Dose Series ([employer]o [employer]bra Natural) 06/03/2020,05/11/2020 Pneumococcal Polysaccharide PPV23 (Pneumovax) Seasonal Influenza [...] Miscellaneous Notes * Telephone Encounter - EL Eid - 11/30/2022 11:00 AM EDT LMOM for pt to call back to schedule * Telephone Encounter - Cindy Brothers Ob/Or EL De León - 11/29/2022 5:18 PM EDT [facility] requesting colonoscopy appt. Order scanned into patient's chart. documented in this encounter Plan of Treatment Scheduled Procedures Name Priority Associated Diagnoses Date/Ti me COLONOSCOPY FLEXIBLE PROXIMA L DIAGNOSTIC Recall Screen for colon cancer History of cervical cancer Health Maintenance Due Date Last Done Comments [...] and were consensually agreed upon. Care Teams Process Area Supervisor Relationship Specialty Start Date End Date Kristyn Brown MD [address] [place] [address] PCP - General Family Medicine 08/08/21 documented as of this encounter
[2023-02-17 22:29] LABS: Appearance Urine Cloudy (Clear); Bacteria Urine Automated Negative (Negative); Bilirubin Urine Negative (Negative); Blood Urine Trace (Negative); Color Urine Yellow; Epithelial Cell Urine Auto >30 /lpf (0-5); Glucose Urine UA Negative (Negative); Ketones Urine 3+ (Negative); Leukocyte Esterase Urine 1+ (Negative); Nitrite Urine Negative (Negative); Protein Urine Trace (Negative); Specific Gravity Urine 1.026 (1.000-1.030); Urobilinogen Urine Negative (Negative); pH Urine 6.5 (4.5-7.5)
[2023-02-18] MEDS: CHECK fentaNYL PATCH PLACEMENT SCH ×4 (00:46→23:58)
[2023-02-18] MEDS: HYDROmorphone INJ 1 MG/ML SYRINGE IV PRN ×4 (03:45→23:58)
[2023-02-18] MEDS: ONDANSETRON INJ 2 MG/ML 2 ML VIAL IV PRN ×4 (03:45→23:58)
[2023-02-18 05:45] LABS: BUN Creatinine Ratio 22.9 (10-20); Calcium 8.8 mg/dl (8.6-10.3); Creatinine Clr Calc Pharmacy 162.4 ml/min; Est GFR (Non-African American) 125.1 ml/min; Magnesium 1.4 mg/dl (1.7-2.4); Potassium 3.6 mmol/L (3.5-5.1)
[2023-02-18] MEDS: ENOXAPARIN 100 MG/1ML SYR SQ SCH ×2 (06:41→18:19)
[2023-02-18] MEDS: cilostazoL 100 MG TAB PO SCH ×2 (08:40→21:01)
[2023-02-18] MEDS: GABAPENTIN 100 MG CAP PO SCH ×2 (08:41→21:02)
[2023-02-18] MEDS: DICYCLOMINE HCL 10 MG CAP PO SCH ×3 (08:41→21:01)
[2023-02-18] MEDS: HEPARIN 100 UNIT/ML 5ML FLUSH FLUSH PRN (10:45)
[2023-02-18] MEDS: SODIUM CHLORIDE 0.9% 1,000 ML IV SCH ×2 (11:32→21:00)
--- NOTE | 2023-02-18 13:31 | Gastroenterology Progress Note ---
Date of Service February 18, 2023 Assessment & Plan (1) Primary cervical cancer with metastasis to other site: (2) Abdominal pain: (3) Nausea & vomiting: Plan: Symptoms have improved Will advance to full liquid diet Continue current therapy and supportive care Admission and Anticipated Discharge Date Admission Date: February 16, 2023 Subjective Feeling much better today. Able to tolerate clear liquids. She has had 2 BM's today. She states her abdominal pain and nausea have improved. Review of Systems Review of Systems: All systems reviewed & are unremarkable except as noted in Subjective Physical Exam Constitutional: WD/WN, vitals as above Respiratory: normal respiratory effort, lungs clear to auscultation Cardiovascular: RRR, no murmur, no edema Gastrointestinal (Abdomen): Inspection/Auscultation: normal bowel sounds; abdomen not distended Percussion/Palpation: abdomen soft; abdomen nontender Skin: no rashes, warm and dry Psychiatric: A+Ox3, euthymic affect Results & Data Results & Data Vital Signs (Past 12 Hours) Vital Signs Temp Pulse Pulse Resp BP Pulse Ox O2 Del Method 02/18/23 11:38 36.4 C L 92 H 18 110/72 95 Room Air 02/18/23 08:45 Room Air 02/18/23 08:02 36.5 C 101 H 18 118/71 93 Room Air 02/18/23 07:42 97 H 02/18/23 03:53 36.6 C 95 H 18 108/71 94 Room Air PG Care Time/CCT Total # of Minutes Spent Total Time Spent with Patient: Total time spent is greater than 50% in coordination of care (as documented) at patient's floor/unit and/or counseling patient: Coding Level of Care Code 06840 SUB INP/OBS CARE 3/50MIN Diagnoses Primary cervical cancer with metastasis to other site C53.9 Abdominal pain R10.9 Nausea & vomiting R11.2
[2023-02-18 15:21] LABS: Basophils # (auto) 0.04 K/uL (0.00-0.20); Basophils % (auto) 1.3 %; Eosinophils # (auto) 0.12 K/uL (0.00-0.50); Eosinophils % (auto) 3.9 %; Hematocrit (blood only) 27.6 % (37.0-47.0); Hemoglobin 8.2 g/dl (12.0-16.0); Immature Granulocytes # (auto) 0.02 K/uL (0.01-0.20); Immature Granulocytes % (auto) 0.7 %; Lymphocytes # (auto) 0.66 K/uL (1.20-3.40); Lymphocytes % (auto) 21.7 %; Mean Corpuscular Hemoglobin 21.9 pg (25.0-34.0); Mean Corpuscular Hgb Conc 29.7 g/dL (32.0-36.0); Mean Corpuscular Volume 73.8 fL (80.0-100.0); Mean Platelet Volume 9.6 fL (9.4-12.4); Monocytes # (auto) 0.43 K/uL (0.11-0.59); Monocytes % (auto) 14.1 %; Neutrophils # (auto) 1.77 K/uL (1.40-6.50); Neutrophils % (auto) 58.3 %; Platelet Count 376 K/uL (130-400); RDW Coefficient of Variation 22.7 % (11.5-14.5); RDW Standard Deviation 59.8 fL (36.4-46.3); Red Blood Count 3.74 M/uL (4.20-5.40); White Blood Count 3.04 K/ul (4.8-10.8)
[2023-02-18] MEDS: MAGNESIUM SULFATE / D5W 1 GM/100 ML BAG IV SCH ×2 (15:23→17:42)
[2023-02-18 15:44] LABS: Anisocytosis Present; Ovalocytes 1+
--- NOTE | 2023-02-18 17:38 | Hospitalist Progress Note ---
Date of Service February 18, 2023 Assessment & Plan (1) Nausea & vomiting: (2) Abdominal pain: Plan: per admitting service notes with addendum: Patient is 52 y/o F with PMH stage IV cervical cancer with metastasis to lungs, pelvis & vertebrae, chronic thrombosis right femoral vein, BLE thrombectomy and stenting on chronic Lovenox and Pletal presented to ER with c/o N/V and abdominal pain. History recurrent N/V, abdominal pain, however intractable nausea, vomiting started yesterday In ER afebrile, P: 128-102, BP: 113/68, R: 20, 95% on RA CT ABD/PELVIS:Mildly dilated fluid-filled small bowel with decompressed terminal ileum. However, no transition point identified. The findings favor an enteritis/ileus. However, a partial small bowel obstruction could appear similar. Small amount of ascites. No pneumatosis, free air or portal venous gas. Mildly distended gallbladder. However, no pericholecystic infiltration to strongly suggest acute cholecystitis. Moderate amount of stool within the colon and rectum. GALLBLADDER US: Moderate gallbladder distention. However, no gallstones. No sonographic Montanez sign. No sonographic evidence for acute cholecystitis. Mild biliary ductal dilatation. This could be correlated with liver function tests. Trace perihepatic ascites. Marked right renal atrophy. In ER given 2 L NSS, Zofran, IV morphine with reported improvement in nausea and abdominal pain. No further vomiting Suspect enteritis vs ileus. No signs complete SBO at this time. No signs cholecystitis on gallbladder us. LFTs, Lipase WNL Blood cultures pending NPO for now Will hold on antibiotics currently Antiemetics, IV Dilaudid prn. Continue home fentanyl patch. Will hold home oral Dilaudid currently while receiving IV IVF Continue Bentyl as needed KUB in am CBC, CMP in am 02/17 Nausea and vomiting likely multifactorial including ileus secondary to fentanyl patch use, chemotherapy contributing, etc. Clinically improved today Advance diet to clear liquids for today Continue IV fluids GI consulted-no endoscopy planned for now, appreciate the recommendation 02/18 improving continue PRN antiemetics HR increases with exertion- IV fluids (3) Hypomagnesemia: Plan: Magnesium: 1.6 - replace (4) Primary cervical cancer with metastasis to other site: Plan: History of metastatic cervical cancer. Metastasis to lungs, pelvis, vertebrae reported by patient. Initially diagnosed 2013 CT chest: Multiple scattered irregular nodules seen throughout the lungs with associated groundglass halos. The majority of these demonstrate central cavitation. These favor cavitary metastatic foci. However, an atypical/fungal infection or septic pulmonary emboli also remain in the differential diagnosis. Necrotic mediastinal and hilar lymphadenopathy likely representing metastatic disease. Patient without cough, shortness of breath. Suspect these are metastatic findings Last chemo on 01/30/2023 Continue home gabapentin, fentanyl patch, hold home oral Dilaudid while receiving IV Dilaudid Talent Development Coordinator/oncologist Dr Cardona, [facility], (5) Chronic deep vein thrombosis (DVT): Plan: History of chronic thrombosis right femoral vein. History multiple lower extremity venous thrombectomy and stenting procedures, most recent in 2021 at [facility] in [facility] History LLE lymphedema Continue Lovenox, Pletal, per patient's IR and oncologist Continue outpatient PT lymphedema therapy DVT Prophylaxis Lovenox Full Code as per discussion with patient, however states if poor prognosis or requires prolonged ventilation would want care discontinued Follows with Dr Kristyn Brown for routine care Disposition anticipate d/c home when patient tolerating regular diet Admission and Anticipated Discharge Date Admission Date: February 16, 2023 Subjective ff up for nausea/vomiting, etc seen resting in bed, comfortable states she feels improved today intermittent nausea is less (+) BMs today no fever/chills no chest pain, dyspnea, palpitations, dizziness no other symptoms Review of Systems Review of Systems: all noted and negative except for above Physical Exam Physical Exam: General- oriented x 3, not in distress, speaks in sentences with no effort or accessory muscle use Eyes- anicteric Neck- no JVD Lungs- clear breath sounds bilaterally, no rales/wheezes Port in place: no infection Heart- normal rate, regular rhythm; no murmurs Abdomen- normal bowel sounds, nondistended, soft, nontender Extremities- no pretibial edema, no calf tenderness Neuro- alert, oriented x 3; no gross focal neurologic deficits Skin- warm & dry Results & Data Results & Data Vital Signs (Past 12 Hours) Vital Signs Temp Pulse Pulse Resp BP Pulse Ox O2 Del Method 02/18/23 16:00 36.6 C 104 H 20 121/75 93 Room Air 02/18/23 11:38 36.4 C L 92 H 18 110/72 95 Room Air 02/18/23 08:45 Room Air 02/18/23 08:02 36.5 C 101 H 18 118/71 93 Room Air 02/18/23 07:42 97 H all noted and reviewed including below
[2023-02-18] MEDS: POLYETHYLENE (MIRALAX) 17 GM PACK PO SCH (17:43)
[2023-02-18] MEDS: OLANZAPINE 2.5 MG TAB PO SCH (21:01)
[2023-02-18] MEDS: OXYBUTYNIN CHLORIDE XL 5 MG TABCR PO SCH (21:01)
[2023-02-18] MEDS: MELATONIN 3 MG TAB PO SCH (21:09)
[2023-02-19] MEDS: HYDROmorphone INJ 1 MG/ML SYRINGE IV PRN ×3 (06:04→18:07)
[2023-02-19] MEDS: ONDANSETRON INJ 2 MG/ML 2 ML VIAL IV PRN ×3 (06:04→18:07)
[2023-02-19] MEDS: ENOXAPARIN 100 MG/1ML SYR SQ SCH ×2 (06:05→18:08)
[2023-02-19] MEDS: SODIUM CHLORIDE 0.9% 1,000 ML IV SCH ×2 (06:05→16:22)
--- NOTE | 2023-02-19 06:07 | Electrocardiogram Report ---
Test Reason : Blood Pressure : / mmHG Vent. Rate : 124 BPM Atrial Rate : 124 BPM P-R Int : 124 ms QRS Dur : 084 ms QT Int : 316 ms P-R-T Axes : 062 073 266 degrees QTc Int : 453 ms Sinus tachycardia Possible Left atrial enlargement Abnormal ECG When compared with ECG of 31-AUG-2020 08:07, T wave inversion more evident in Inferior leads T wave inversion now evident in Anterolateral leads Confirmed by Donis Dubose ([id number]) on 02/19/2023 6:07:16 AM Referred By: REFERRED SELF Confirmed By:Donis Dubose
[2023-02-19] MEDS: CHECK fentaNYL PATCH PLACEMENT SCH ×2 (08:03→15:17)
[2023-02-19] MEDS: cilostazoL 100 MG TAB PO SCH ×2 (08:03→22:08)
[2023-02-19] MEDS: DICYCLOMINE HCL 10 MG CAP PO SCH ×3 (08:03→19:16)
[2023-02-19] MEDS: GABAPENTIN 100 MG CAP PO SCH ×2 (08:03→22:09)
[2023-02-19] MEDS: DULoxetine HCL 30 MG CAP PO SCH (08:03)
[2023-02-19] MEDS: POLYETHYLENE (MIRALAX) 17 GM PACK PO SCH (08:09)
[2023-02-19 09:51] LABS: Basophils # (auto) 0.02 K/uL (0.00-0.20); Basophils % (auto) 0.6 %; Eosinophils # (auto) 0.07 K/uL (0.00-0.50); Eosinophils % (auto) 2.2 %; Hematocrit (blood only) 28.1 % (37.0-47.0); Hemoglobin 8.6 g/dl (12.0-16.0); Immature Granulocytes # (auto) 0.01 K/uL (0.01-0.20); Immature Granulocytes % (auto) 0.3 %; Lymphocytes # (auto) 0.78 K/uL (1.20-3.40); Lymphocytes % (auto) 24.1 %; Mean Corpuscular Hemoglobin 21.9 pg (25.0-34.0); Mean Corpuscular Hgb Conc 30.6 g/dL (32.0-36.0); Mean Corpuscular Volume 71.5 fL (80.0-100.0); Mean Platelet Volume 9.6 fL (9.4-12.4); Monocytes # (auto) 0.36 K/uL (0.11-0.59); Monocytes % (auto) 11.1 %; Neutrophils # (auto) 1.99 K/uL (1.40-6.50); Neutrophils % (auto) 61.7 %; Platelet Count 416 K/uL (130-400); RDW Coefficient of Variation 22.6 % (11.5-14.5); RDW Standard Deviation 58.4 fL (36.4-46.3); Red Blood Count 3.93 M/uL (4.20-5.40); White Blood Count 3.23 K/ul (4.8-10.8)
[2023-02-19 10:07] LABS: BUN Creatinine Ratio 9.1 (10-20); Calcium 8.2 mg/dl (8.6-10.3); Creatinine Clr Calc Pharmacy 172.2 ml/min; Est GFR (African American) 147.9 ml/min; Est GFR (Non-African American) 127.6 ml/min; Magnesium 1.4 mg/dl (1.7-2.4); Potassium 3.2 mmol/L (3.5-5.1)
[2023-02-19 10:16] LABS: Anisocytosis Present; Ovalocytes 2+; Polychromasia 1+; Tear Drop Cells 1+
[2023-02-19] MEDS: MAGNESIUM SULFATE / D5W 1 GM/100 ML BAG IV SCH ×2 (10:58→13:17)
[2023-02-19] MEDS: POTASSIUM CHLORIDE CRTAB 20 MEQ TABCR PO SCH ×2 (10:58→22:10)
[2023-02-19] MEDS: PANTOprazole 40 MG in SYRINGE 0 ML IV SCH ×2 (12:14→22:18)
--- NOTE | 2023-02-19 15:50 | Hospitalist Progress Note ---
Date of Service February 19, 2023 Assessment & Plan (1) Nausea & vomiting: (2) Abdominal pain: Plan: per admitting service notes with addendum: Patient is 52 y/o F with PMH stage IV cervical cancer with metastasis to lungs, pelvis & vertebrae, chronic thrombosis right femoral vein, BLE thrombectomy and stenting on chronic Lovenox and Pletal presented to ER with c/o N/V and abdominal pain. History recurrent N/V, abdominal pain, however intractable nausea, vomiting started yesterday In ER afebrile, P: 128-102, BP: 113/68, R: 20, 95% on RA CT ABD/PELVIS:Mildly dilated fluid-filled small bowel with decompressed terminal ileum. However, no transition point identified. The findings favor an enteritis/ileus. However, a partial small bowel obstruction could appear similar. Small amount of ascites. No pneumatosis, free air or portal venous gas. Mildly distended gallbladder. However, no pericholecystic infiltration to strongly suggest acute cholecystitis. Moderate amount of stool within the colon and rectum. GALLBLADDER US: Moderate gallbladder distention. However, no gallstones. No sonographic Montanez sign. No sonographic evidence for acute cholecystitis. Mild biliary ductal dilatation. This could be correlated with liver function tests. Trace perihepatic ascites. Marked right renal atrophy. In ER given 2 L NSS, Zofran, IV morphine with reported improvement in nausea and abdominal pain. No further vomiting Suspect enteritis vs ileus. No signs complete SBO at this time. No signs cholecystitis on gallbladder us. LFTs, Lipase WNL Blood cultures pending NPO for now Will hold on antibiotics currently Antiemetics, IV Dilaudid prn. Continue home fentanyl patch. Will hold home oral Dilaudid currently while receiving IV IVF Continue Bentyl as needed KUB in am CBC, CMP in am 02/17 Nausea and vomiting likely multifactorial including ileus secondary to fentanyl patch use, chemotherapy contributing, etc. Clinically improved today Advance diet to clear liquids for today Continue IV fluids GI consulted-no endoscopy planned for now, appreciate the recommendation 02/18 improving continue PRN antiemetics HR increases with exertion- IV fluids 02/19 Nausea improving Positive stomach cramping since last night, reminiscent of previous episodes at home Trial of Protonix 40 mg IV twice daily, warm compress, continue Bentyl 3 times daily (3) Hypomagnesemia: Plan: Magnesium: 1.6 - replace (4) Primary cervical cancer with metastasis to other site: Plan: History of metastatic cervical cancer. Metastasis to lungs, pelvis, vertebrae reported by patient. Initially diagnosed 2013 CT chest: Multiple scattered irregular nodules seen throughout the lungs with associated groundglass halos. The majority of these demonstrate central cavitation. These favor cavitary metastatic foci. However, an atypical/fungal infection or septic pulmonary emboli also remain in the differential diagnosis. Necrotic mediastinal and hilar lymphadenopathy likely representing metastatic disease. Patient without cough, shortness of breath. Suspect these are metastatic findings Last chemo on 01/30/2023 Continue home gabapentin, fentanyl patch, hold home oral Dilaudid while receiving IV Dilaudid Quality Control Assessor/oncologist Dr Cardona, [facility], (5) Chronic deep vein thrombosis (DVT): Plan: History of chronic thrombosis right femoral vein. History multiple lower extremity venous thrombectomy and stenting procedures, most recent in 2021 at [facility] [place] in [facility] History LLE lymphedema Continue Lovenox, Pletal, per patient's IR and oncologist Continue outpatient PT lymphedema therapy DVT Prophylaxis On Lovenox Full Code as per discussion with patient, however states if poor prognosis or requires prolonged ventilation would want care discontinued Follows with Dr Kristyn Brown for routine care Disposition anticipate d/c home when patient tolerating regular diet Admission and Anticipated Discharge Date Admission Date: February 16, 2023 Subjective Follow-up for nausea, etc. Seen resting in bed, sitting up, not in distress States she had episode of stomach cramping overnight Seems to be intermittent this morning Nausea seems to be improving Had 1 good bowel movement overnight No fevers or chills No leg pain, swelling, shortness of breath No other new symptoms Review of Systems Review of Systems: all noted and negative except for above Physical Exam Physical Exam: General- oriented x 3, not in distress, speaks in sentences with no effort or accessory muscle use Eyes- anicteric Neck- no JVD Lungs- clear breath sounds bilaterally, no crackles, no wheezing Heart- normal rate, regular rhythm; no murmurs Abdomen- normal bowel sounds, nondistended, soft, mild epigastric tenderness Extremities- no pretibial edema, no calf tenderness Neuro- alert, oriented x 3; no gross focal neurologic deficits Skin- warm & dry Results & Data Results & Data Vital Signs (Past 12 Hours) Vital Signs Temp Pulse Pulse Resp BP Pulse Ox O2 Del Method 02/19/23 15:39 36.7 C 86 16 116/71 93 Room Air 02/19/23 14:59 113 H 02/19/23 11:24 36.7 C 105 H 16 121/86 92 Room Air 02/19/23 07:45 Room Air 02/19/23 07:31 36.8 C 97 H 16 112/72 92 Room Air 02/19/23 07:17 64 all noted and reviewed including below
[2023-02-19] MEDS: MELATONIN 3 MG TAB PO SCH (22:08)
[2023-02-19] MEDS: DOCUSATE SODIUM/SENNA 50/8.6MG TAB PO SCH (22:08)
[2023-02-19] MEDS: OLANZAPINE 2.5 MG TAB PO SCH (22:09)
[2023-02-19] MEDS: OXYBUTYNIN CHLORIDE XL 5 MG TABCR PO SCH (22:09)
[2023-02-19] MEDS: fentaNYL 12 MCG/HR TDSY TD SCH (22:18)
[2023-02-20] MEDS: ONDANSETRON INJ 2 MG/ML 2 ML VIAL IV PRN ×5 (00:01→23:45)
[2023-02-20] MEDS: HYDROmorphone INJ 1 MG/ML SYRINGE IV PRN ×6 (00:01→23:46)
[2023-02-20] MEDS: CHECK fentaNYL PATCH PLACEMENT SCH ×4 (00:02→23:45)
[2023-02-20] MEDS: ENOXAPARIN 100 MG/1ML SYR SQ SCH ×2 (05:48→18:34)
[2023-02-20] MEDS: SODIUM CHLORIDE 0.9% 1,000 ML IV SCH ×2 (05:49→17:26)
[2023-02-20 05:57] LABS: Basophils # (auto) 0.03 K/uL (0.00-0.20); Eosinophils # (auto) 0.09 K/uL (0.00-0.50); Eosinophils % (auto) 3.1 %; Hematocrit (blood only) 25.4 % (37.0-47.0); Hemoglobin 7.7 g/dl (12.0-16.0); Immature Granulocytes # (auto) 0.01 K/uL (0.01-0.20); Immature Granulocytes % (auto) 0.3 %; Lymphocytes # (auto) 0.91 K/uL (1.20-3.40); Lymphocytes % (auto) 31.8 %; Mean Corpuscular Hemoglobin 21.8 pg (25.0-34.0); Mean Corpuscular Hgb Conc 30.3 g/dL (32.0-36.0); Monocytes # (auto) 0.42 K/uL (0.11-0.59); Monocytes % (auto) 14.7 %; Neutrophils % (auto) 49.1 %; Platelet Count 361 K/uL (130-400); RDW Coefficient of Variation 22.7 % (11.5-14.5); RDW Standard Deviation 58.6 fL (36.4-46.3); Red Blood Count 3.53 M/uL (4.20-5.40); White Blood Count 2.86 K/ul (4.8-10.8)
[2023-02-20 07:00] LABS: Anisocytosis Present; Hypochromasia Present; Ovalocytes 2+; Polychromasia 1+; Tear Drop Cells 1+
[2023-02-20 07:04] LABS: BUN Creatinine Ratio 9.1 (10-20); Calcium 8.3 mg/dl (8.6-10.3); Creatinine Clr Calc Pharmacy 188.1 ml/min; Est GFR (African American) 147.9 ml/min; Est GFR (Non-African American) 127.6 ml/min; Magnesium 1.6 mg/dl (1.7-2.4); Potassium 4.4 mmol/L (3.5-5.1)
[2023-02-20] MEDS: POTASSIUM CHLORIDE CRTAB 20 MEQ TABCR PO SCH (08:38)
[2023-02-20] MEDS: PANTOprazole 40 MG in SYRINGE 0 ML IV SCH ×2 (08:38→20:02)
[2023-02-20] MEDS: cilostazoL 100 MG TAB PO SCH ×2 (08:38→20:03)
[2023-02-20] MEDS: DULoxetine HCL 30 MG CAP PO SCH (08:38)
[2023-02-20] MEDS: DICYCLOMINE HCL 10 MG CAP PO SCH ×3 (08:40→20:03)
[2023-02-20] MEDS: GABAPENTIN 100 MG CAP PO SCH ×2 (08:40→20:03)
[2023-02-20] MEDS: POLYETHYLENE (MIRALAX) 17 GM PACK PO SCH (08:47)
[2023-02-20] MEDS: DOCUSATE SODIUM/SENNA 50/8.6MG TAB PO SCH (08:47)
[2023-02-20] MEDS ORDERED: MAGNESIUM SULFATE / D5W 1 GM/100 ML BAG IV STA (15:01)
--- NOTE | 2023-02-20 16:15 | CT Scan Report ---
CT abd pelvis wo con CLINICAL HISTORY: pain, r/o obstruction TECHNIQUE: Helical axial images of the abdomen and pelvis were obtained. Automated dose lowering tech niques and/or adjustment according to patient size were utilized for this exam. This exam was perfor med without intravenous contrast. CT DOSE: 915.7 mGy.cm COMPARISON: Comparison is made to CT abdomen pelvis 02/16/2023 FINDINGS: Lower chest: Innumerable cavitary lesions in the chest are essentially unchanged from prior exam. Liver: Unremarkable. No focal lesions are seen. Gallbladder and biliary tree: No calcified gallstones. Normal caliber wall. No intra- or extrahepatic biliary ductal dilation. Pancreas: Unremarkable, no focal lesions. Spleen: Unremarkable. Adrenals: Unremarkable. Kidneys and ureters: Atrophic right kidney. Left parapelvic cysts are noted. Bladder: Limited evaluation due to underdistention. Reproductive organs: Unremarkable. Bowel: Numerous gas distended loops of small bowel are seen measuring up to 37 mm in diameter. There is narrowing in the distal ileum which is nonspecific. The colon is distended with prominent liquid c ontents throughout. Lymph nodes Retroperitoneal: Unremarkable. Pelvic: Right iliac conglomerate lymph nodes partially visualized Mesenteric: Subcentimeter lymph nodes are noted. Peritoneum: Normal. Vessels: Bilateral iliac stents are seen. There is narrowing of the right iliac stent which does not appear to represent hemodynamically significant stenosis. Abdominal wall: Mild body wall edema is seen along with injection granulomata. Bones: Minimal degenerative changes are seen. Redemonstration of mixed sclerotic and lucent lesion in the right iliac bone. IMPRESSION: 1. Findings are compatible with worsening ileus without a transition point, less likely a partial sm all bowel obstruction in the distal ileum. 2. Partial visualization of right ileal lymph node conglomerate with narrowing of the iliac vein claudia nt, similar to prior exam. 3. Additional findings as above. ACT 112: Negative or not required by law. Electronically signed by: Cristino Karimi M.D. 02/20/2023 4:13 PM
[2023-02-20] MEDS: PROMETHAZINE HCL 12.5 MG in SODIUM CHLORIDE 0.9% 50 ML IV PRN ×2 (17:05→23:45)
--- NOTE | 2023-02-20 17:33 | Hospitalist Progress Note ---
Date of Service February 20, 2023 Assessment & Plan (1) Nausea & vomiting: (2) Abdominal pain: Plan: per admitting service notes with addendum: Patient is 52 y/o F with PMH stage IV cervical cancer with metastasis to lungs, pelvis & vertebrae, chronic thrombosis right femoral vein, BLE thrombectomy and stenting on chronic Lovenox and Pletal presented to ER with c/o N/V and abdominal pain. History recurrent N/V, abdominal pain, however intractable nausea, vomiting started yesterday In ER afebrile, P: 128-102, BP: 113/68, R: 20, 95% on RA CT ABD/PELVIS:Mildly dilated fluid-filled small bowel with decompressed terminal ileum. However, no transition point identified. The findings favor an enteritis/ileus. However, a partial small bowel obstruction could appear similar. Small amount of ascites. No pneumatosis, free air or portal venous gas. Mildly distended gallbladder. However, no pericholecystic infiltration to strongly suggest acute cholecystitis. Moderate amount of stool within the colon and rectum. GALLBLADDER US: Moderate gallbladder distention. However, no gallstones. No sonographic Montanez sign. No sonographic evidence for acute cholecystitis. Mild biliary ductal dilatation. This could be correlated with liver function tests. Trace perihepatic ascites. Marked right renal atrophy. Nausea and vomiting likely multifactorial including ileus secondary to fentanyl patch use, chemotherapy contributing, etc. GI Dr. Josr Mills consulted-no procedures recommended initially, recommend supportive care Given as needed antiemetics, etc. Initially improving However abdominal cramping progressed since last night No bowel movements, no flatus Repeat CT abdomen and pelvis: Bowel: Numerous gas distended loops of small bowel are seen measuring up to 37 mm in diameter. There is narrowing in the distal ileum which is nonspecific. The colon is distended with prominent liquid contents throughout. IMPRESSION: 1. Findings are compatible with worsening ileus without a transition point, less likely a partial small bowel obstruction in the distal ileum. 2. Partial visualization of right ileal lymph node conglomerate with narrowing of the iliac vein stent, similar to prior exam. Messaged Dr. Mills, awaiting further recommendations N.p.o. for now, may need EGD to further investigate narrowing in the distal ileum Continue IV fluids, supportive care (3) Hypomagnesemia: Plan: Magnesium: 1.6 - replace (4) Primary cervical cancer with metastasis to other site: Plan: History of metastatic cervical cancer. Metastasis to lungs, pelvis, vertebrae reported by patient. Initially diagnosed 2013 CT chest: Multiple scattered irregular nodules seen throughout the lungs with associated groundglass halos. The majority of these demonstrate central cavitation. These favor cavitary metastatic foci. However, an atypical/fungal infection or septic pulmonary emboli also remain in the differential diagnosis. Necrotic mediastinal and hilar lymphadenopathy likely representing metastatic disease. Patient without cough, shortness of breath. 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 History multiple lower extremity venous thrombectomy and stenting procedures, most recent in 2021 at [facility] [place] in [facility] History LLE lymphedema Continue Lovenox, Pletal, per patient's IR and oncologist Continue outpatient PT lymphedema therapy DVT Prophylaxis On Lovenox twice daily Full Code as per discussion with patient, however states if poor prognosis or requires prolonged ventilation would want care discontinued Follows with Dr Kristyn Brown for routine care Disposition anticipate d/c home when medically stable Admission and Anticipated Discharge Date Admission Date: February 16, 2023 Subjective Follow-up for nausea and vomiting, etc. Seen resting in bed, comfortable, not in distress Having increased abdominal cramping today associated with some nausea No bowel movements, no flatus No fevers or chills No other symptoms At 5 PM, patient had a bowel movement per tombstone polisher of Systems Review of Systems: all noted and negative except for above Physical Exam Physical Exam: General- oriented x 3, not in distress, speaks in sentences with no effort or accessory muscle use Eyes- anicteric Neck- no JVD Lungs- clear breath sounds bilaterally Heart- normal rate, regular rhythm; no murmurs Abdomen-positive hypoactive bowel sounds, nondistended, soft, mild epigastric tenderness Extremities- no pretibial edema, no calf tenderness Neuro- alert, oriented x 3; no gross focal neurologic deficits Skin- warm & dry Results & Data Results & Data Vital Signs (Past 12 Hours) Vital Signs Temp Pulse Pulse Resp BP BP Pulse Ox 02/20/23 16:18 113 H 02/20/23 15:57 99 H 92 02/20/23 15:19 36.7 C 104 H 17 110/69 91 02/20/23 14:54 90 02/20/23 14:45 02/20/23 14:42 02/20/23 11: 36.8 C 103 H 16 116/76 93 02/20/23 07:57 36.6 C 96 H 16 120/81 92 O2 Del Method 02/20/23 16:18 02/20/23 15:57 Room Air 02/20/23 15:19 Room Air 02/20/23 14:54 02/20/23 14:45 Room Air 02/20/23 14:42 Room Air 02/20/23 11:23 Room Air 02/20/23 07:57 Room Air all noted and reviewed including below
[2023-02-20] MEDS: MELATONIN 3 MG TAB PO SCH (20:02)
[2023-02-20] MEDS: OLANZAPINE 2.5 MG TAB PO SCH (20:03)
[2023-02-20] MEDS: OXYBUTYNIN CHLORIDE XL 5 MG TABCR PO SCH (20:03)
[2023-02-21] MEDS: HYDROmorphone INJ 1 MG/ML SYRINGE IV PRN ×4 (04:34→18:30)
[2023-02-21] MEDS: ENOXAPARIN 100 MG/1ML SYR SQ SCH ×2 (04:35→18:12)
[2023-02-21] MEDS: SODIUM CHLORIDE 0.9% 1,000 ML IV SCH ×2 (04:35→18:13)
[2023-02-21] MEDS: ONDANSETRON INJ 2 MG/ML 2 ML VIAL IV PRN (04:35)
[2023-02-21 05:21] LABS: Hematocrit (blood only) 25.5 % (37.0-47.0); Hemoglobin 7.7 g/dl (12.0-16.0); Mean Corpuscular Hemoglobin 21.9 pg (25.0-34.0); Mean Corpuscular Hgb Conc 30.2 g/dL (32.0-36.0); Mean Corpuscular Volume 72.4 fL (80.0-100.0); Mean Platelet Volume 9.2 fL (9.4-12.4); Platelet Count 396 K/uL (130-400); RDW Coefficient of Variation 23.1 % (11.5-14.5); RDW Standard Deviation 59.5 fL (36.4-46.3); Red Blood Count 3.52 M/uL (4.20-5.40); White Blood Count 3.54 K/ul (4.8-10.8)
[2023-02-21 05:34] LABS: BUN Creatinine Ratio 9.4 (10-20); Calcium 8.4 mg/dl (8.6-10.3); Creatinine Clr Calc Pharmacy 193.9 ml/min; Est GFR (African American) 149.4 ml/min; Est GFR (Non-African American) 128.9 ml/min; Magnesium 1.4 mg/dl (1.7-2.4); Phosphorus 2.8 mg/dl (2.5-4.9); Potassium 3.8 mmol/L (3.5-5.1)
[2023-02-21] MEDS ORDERED: MAGNESIUM SULFATE / D5W 1 GM/100 ML BAG IV ONE ×2 (09:11→17:29)
--- NOTE | 2023-02-21 09:11 | Hospitalist Progress Note ---
Date of Service February 21, 2023 Assessment & Plan (1) Nausea & vomiting: (2) Abdominal pain: Plan: per admitting service notes with addendum: Patient is 52 y/o F with PMH stage IV cervical cancer with metastasis to lungs, pelvis & vertebrae, chronic thrombosis right femoral vein, BLE thrombectomy and stenting on chronic Lovenox and Pletal presented to ER with c/o N/V and abdominal pain. History recurrent N/V, abdominal pain, however intractable nausea, vomiting started yesterday In ER afebrile, P: 128-102, BP: 113/68, R: 20, 95% on RA CT ABD/PELVIS:Mildly dilated fluid-filled small bowel with decompressed terminal ileum. However, no transition point identified. The findings favor an enteritis/ileus. However, a partial small bowel obstruction could appear similar. Small amount of ascites. No pneumatosis, free air or portal venous gas. Mildly distended gallbladder. However, no pericholecystic infiltration to strongly suggest acute cholecystitis. Moderate amount of stool within the colon and rectum. GALLBLADDER US: Moderate gallbladder distention. However, no gallstones. No sonographic Montanez sign. No sonographic evidence for acute cholecystitis. Mild biliary ductal dilatation. This could be correlated with liver function tests. Trace perihepatic ascites. Marked right renal atrophy. Nausea and vomiting likely multifactorial including ileus secondary to fentanyl patch use, chemotherapy contributing, etc. GI Dr. Ovalles Case consulted-no procedures recommended initially, recommend supportive care Given as needed antiemetics, etc. Initially improving However abdominal cramping progressed - yesterday 02/20 had a lot of pain and cramping No bowel movements, no flatus Repeated CT abdomen and pelvis: Bowel: Numerous gas distended loops of small bowel are seen measuring up to 37 mm in diameter. There is narrowing in the distal ileum which is nonspecific. The colon is distended with prominent liquid contents throughout. IMPRESSION: 1. Findings are compatible with worsening ileus without a transition point, less likely a partial small bowel obstruction in the distal ileum. 2. Partial visualization of right ileal lymph node conglomerate with narrowing of the iliac vein stent, similar to prior exam. 02/21 - Discussed w/ GI ([facility]) Likely ileus, also she may have pSBO related to cervical cancer as well. Laxative regimen - Increase Miralax to 17g BID; Senna 1 tab daily ; add Dulcolax 10mg suppository daily [place] and Tap water enema x 2 today Will try Marinol to treat pain, to help decrease narcotic requirement. Daily KUB till ileus resolution (3) Hypomagnesemia: Plan: Magnesium: 1.4 today - replace and monitor (4) Primary cervical cancer with metastasis to other site: Plan: History of metastatic cervical cancer. Metastasis to lungs, pelvis, vertebrae reported by patient. Initially diagnosed 2013 CT chest: Multiple scattered irregular nodules seen throughout the lungs with associated groundglass halos. The majority of these demonstrate central cavitation. These favor cavitary metastatic foci. However, an atypical/fungal infection or septic pulmonary emboli also remain in the differential diagnosis. Necrotic mediastinal and hilar lymphadenopathy likely representing metastatic disease. Patient without cough, shortness of breath. 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 History multiple lower ext remity venous thrombectomy and stenting procedures, most recent in 2021 at [facility] History LLE lymphedema Continue Lovenox, Pletal, per patient's IR and oncologist Continue outpatient PT lymphedema therapy DVT Prophylaxis On Lovenox twice daily Full Code as per discussion with patient, however states if poor prognosis or requires prolonged ventilation would want care discontinued Follows with Dr Kristyn Brown for routine care Disposition anticipate d/c home when medically stable Admission and Anticipated Discharge Date Admission Date: February 16, 2023 Subjective Follow-up for nausea and vomiting, etc. Seen resting in bed, comfortable, not in distress Having increased abdominal cramping yesterday associated with some nausea No bowel movements, no flatus No fevers or chills No other symptoms Discussed w/ GI at the bedside. Review of Systems Review of Systems: All systems reviewed & are unremarkable except as noted in Subjective Physical Exam Physical Exam: General- oriented x 3, not in distress, speaks in sentences with no effort or accessory muscle use Eyes- anicteric Neck- no JVD Lungs- clear breath sounds bilaterally Heart- normal rate, regular rhythm; no murmurs Abdomen-positive hypoactive bowel sounds, nondistended, soft, mild epigastric tenderness Extremities- no pretibial edema, no calf tenderness Neuro- alert, oriented x 3; no gross focal neurologic deficits Skin- warm & dry Results & Data Results & Data Vital Signs (Past 12 Hours) Vital Signs Temp Pulse Pulse Resp BP BP Pulse Ox 02/21/23 07:55 36.7 C 105 H 16 118/69 90 02/21/23 07:44 85 02/21/23 03:15 36.6 C 106 H 18 129/81 90 02/21/23 03:13 02/21/23 03:04 02/20/23 23:59 36.6 C 92 H 18 113/69 91 02/20/23 23:00 99 H O2 Del Method O2 Del Method 02/21/23 07:55 Room Air 02/21/23 07:44 02/21/23 03:15 Room Air 02/21/23 03:13 Room Air 02/21/23 03:04 Room Air 02/20/23 23:59 Room Air 02/20/23 23:00 Laboratory Results 02/21/23 Range/Units 04:37 WBC 3.54 L (4.8-10.8) K/ul RBC 3.52 L (4.20-5.40) M/uL Hgb 7.7 L (12.0-16.0) g/dl Hct 25.5 L (37.0-47.0) % MCV 72.4 L (80.0-100.0) fL MCH 21.9 L (25.0-34.0) pg MCHC 30.2 L (32.0-36.0) g/dL RDW Std Deviation 59.5 H (36.4-46.3) fL RDW Coeff of Luis 23.1 H (11.5-14.5) % Plt Count 396 (130-400) K/uL MPV 9.2 L (9.4-12.4) fL Sodium 137 (136-145) mmol/L Potassium 3.8 (3.5-5.1) mmol/L Chloride 106 (98-107) mmol/L Carbon Dioxide 26 (21-32) mmol/L Anion Gap 5 (3-11) BUN 3 L (6-23) mg/dl Creatinine 0.32 L (0.6-1.2) mg/dl Est Cr Clr Drug Dosing 193.9 ml/min Est GFR ( Amer) 149.4 ml/min Est GFR (Non-Af Amer) 128.9 ml/min BUN/Creatinine Ratio 9.4 L (10-20) Glucose 88 (70-99(Fasting)) mg/dl Calcium 8.4 L (8.6-10.3) mg/dl Phosphorus 2.8 (2.5-4.9) mg/dl Magnesium 1.4 L (1.7-2.4) mg/dl Medications Administered Current Inpatient Medications Acetaminophen (Acetaminophen 325 Mg Tab) 650 mg PO Q4H PRN PRN Reason: Pain or Fever Stop: 03/18/23 18:33 Artificial Tears (Artificial Tears) 1 drops OPB QID PRN PRN Reason: Dryness Stop: 03/18/23 18:41 Cilostazol (Cilostazol 100 Mg Tab) 50 mg PO BID SAE Stop: 03/18/23 20:59 Last Admin: 02/20/23 20:03 Dose: 50 mg Dicyclomine HCl (Dicyclomine Hcl 10 Mg Cap) 10 mg PO TID SAE Stop: 03/18/23 20:59 Last Admin: 02/20/23 20:03 Dose: 10 mg Duloxetine HCl (Duloxetine Hcl 30 Mg Cap) 30 mg PO DAILY SAE Stop: 03/18/23 20:59 Last Admin: 02/20/23 08:38 Dose: 30 mg Enoxaparin Sodium (Enoxaparin 100 Mg/1ml Syr) 100 mg SQ BID@0700,1900 [facility] Stop: 03/19/23 06:59 Last Admin: 02/21/23 04:35 Dose: 100 mg Fentanyl (Fentanyl 12 Mcg/Hr Tdsy) 12 mcg TD Q72H SAE Stop: 03/02/23 20:59 Last Admin: 02/19/23 22:18 Dose: 12 mcg Gabapentin (Gabapentin 100 Mg Cap) 200 mg PO BID SAE Stop: 03/18/23 20:59 Last Admin: 02/20/23 20:03 Dose: 200 mg Heparin Sodium (Porcine) (Heparin 100 Unit/Ml 5ml Flush) 5 ml FLUSH PRN PRN PRN Reason: Flush Stop: 03/19/23 00:11 Last Admin: 02/18/23 10:45 Dose: 5 ml Hydromorphone HCl (Hydromorphone Inj 1 Mg/Ml Syringe) 1 mg IV Q4H PRN PRN Reason: Severe Pain (Scale 7, 8, 9,10) Stop: 03/02/23 18:33 Last Admin: 02/21/23 04:34 Dose: 1 mg Sodium Chloride (Nss) 1,000 mls @ 75 mls/hr IV .[id number] [facility] Stop: 03/20/23 11:14 Last Admin: 02/21/23 04:35 Dose: 75 mls/hr Pantoprazole Sodium 40 mg/ (Syringe) 10 mls @ 5 mls/min IV BID SAE Stop: 03/21/23 11:39 Last Admin: 02/20/23 20:02 Dose: 5 mls/min Promethazine HCl 12.5 mg/ (Sodium Chloride) 50.5 mls @ 202 mls/hr IV Q6H PRN PRN Reason: Nausea And Vomiting Stop: 03/22/23 15:54 Last Infusion: 02/21/23 00:14 Dose: Infused Magnesium Sulfate/Dextrose (Magnesium Sulfate / D5w) 1 gm in 100 mls @ 50 mls/hr IV ONE ONE Stop: 02/21/23 11:10 Melatonin (Melatonin 3 Mg Tab) 3 mg PO HS [facility] Stop: 03/18/23 20:59 Last Admin: 02/20/23 20:02 Dose: 3 mg Miscellaneous (Check Fentanyl Patch Placement) 1 each N/A QS [facility] Stop: 03/19/23 00:00 Last Admin: 02/20/23 23:45 Dose: 1 each Miscellaneous (Fentanyl Patch Remove & Waste) 1 each N/A Q3D@2100 [facility] Stop: 03/18/23 20:59 Last Admin: 02/19/23 22:12 Dose: 1 each Olanzapine (Olanzapine 2.5 Mg Tab) 2.5 mg PO HS SAE Stop: 03/18/23 20:59 Last Admin: 02/20/23 20:03 Dose: 2.5 mg Ondansetron HCl (Ondansetron Inj 2 Mg/Ml 2 Ml Vial) 4 mg IV Q6H PRN PRN Reason: Nausea Stop: 03/18/23 18:33 Last Admin: 02/21/23 04:35 Dose: 4 mg Oxybutynin Chloride (Oxybutynin Chloride Xl 5 Mg Tabcr) 10 mg PO PM SAE Stop: 03/18/23 20:59 Last Admin: 02/20/23 20:03 Dose: 10 mg Polyethylene Glycol (Polyethylene (Miralax) 17 Gm Pack) 17 gm PO DAILY SAE Stop: 03/19/23 08:59 Last Admin: 02/20/23 08:47 Dose: 17 gm Senna/Docusate Sodium (Docusate Sodium/Senna 50/8.6mg Tab) 1 tab PO QAM SAE Stop: 03/21/23 21:54 Last Admin: 02/20/23 08:47 Dose: 1 tab
[2023-02-21] MEDS: PANTOprazole 40 MG in SYRINGE 0 ML IV SCH ×2 (09:19→21:32)
[2023-02-21] MEDS: DOCUSATE SODIUM/SENNA 50/8.6MG TAB PO SCH (09:19)
[2023-02-21] MEDS: DICYCLOMINE HCL 10 MG CAP PO SCH (09:20)
[2023-02-21] MEDS: DULoxetine HCL 30 MG CAP PO SCH (09:20)
[2023-02-21] MEDS: GABAPENTIN 100 MG CAP PO SCH ×2 (09:20→21:33)
[2023-02-21] MEDS: POLYETHYLENE (MIRALAX) 17 GM PACK PO SCH ×2 (09:20→21:30)
[2023-02-21] MEDS: CHECK fentaNYL PATCH PLACEMENT SCH ×3 (09:21→21:36)
[2023-02-21] MEDS: cilostazoL 100 MG TAB PO SCH ×2 (09:21→21:32)
[2023-02-21] MEDS: PROMETHAZINE HCL 12.5 MG in SODIUM CHLORIDE 0.9% 50 ML IV PRN (09:33)
--- NOTE | 2023-02-21 11:37 | Gastroenterology Progress Note ---
Date of Service February 21, 2023 Assessment & Plan (1) Primary cervical cancer with metastasis to other site: (2) Abdominal pain: (3) Nausea & vomiting: Plan: Pt is a 52 yo female w metastatic cervical ca (last chemo 01/30/2023), admitted w abd pain, n/v symptoms. Abd imaging consistent with ileus wo transition point, PSBO. Last colonoscopy 12/2022 unremarkable - Daily KUB till ileus resolution - Increase Miralax to 17g BID; Senna 1 tab daily ; add Dulcolax 10mg suppository daily AL and Tap water enema x 2 today - Consider Relistor inj x 1 dose if no resolution in next day - Avoid narcotic if possible; will try Marinol 2.5mg BID - Keep K level >4 to promote GI motility; encourage OOB and ambulation w assistance - Bowel rest for now Admission and Anticipated Discharge Date Admission Date: February 16, 2023 Supervising Physician Co-Signing Physician Notes Attg add: Pt with met cervical cancer intermittent abdominal pain, n/v now admit with persistent abdominal pain, nausea. Imaging shows markedly dilated SB and colonic loops. Likely ileus, also she may have pSBO related to cervical cancer as well. Laxative regimen as above. WIll try Marinol to treat pain, to help decrease narcotic requirement. Can use Relistor, Emend if symptoms refractory. Subjective GI asked to re-evaluate pt who has metastatic cervical ca, admitted w abd pain, n/v symptoms. Pt had CT abd/pelvis yesterday which showed signs of ileus wo transition point and partial SBO. Currently on Miralax 17g daily + Senna 1 tab daily. She hasn't passed flatus x 2 days. Is having nausea but no vomiting. She had small amts of liquid discharge per rectum which she doesn't consider as a BM on Sunday. Review of Systems Review of Systems: All systems reviewed & are unremarkable except as noted in HPI & below Physical Exam Constitutional: WD/WN, vitals as above (Thin, cooperative, pleasant) well groomed, cooperative and comfortable Eyes: PERRL, conjunctivae normal, anicteric sclerae ENMT: external ear and nose normal, oropharynx normal Respiratory: No respiratory distress, + fine crackles on bilateral lobes Cardiovascular: RRR, no murmur, no edema Gastrointestinal (Abdomen): Mild distension, BS faint on LLQ, RLQ Skin: no rashes, warm and dry no jaundice Neurologic: Motor/Sensory: no asterixis Psychiatric: A+Ox3, euthymic affect Lymphatic: + lymphedema (bilateral legs L>R) Results & Data Vital Signs (Past 12 Hours) Vital Signs Temp Pulse Pulse Resp BP BP Pulse Ox 02/21/23 11:20 36.7 C 98 H 16 109/72 91 02/21/23 07:55 36.7 C 105 H 16 118/69 90 02/21/23 07:44 85 02/21/23 03:15 36.6 C 106 H 18 129/81 90 02/21/23 03:13 02/21/23 03:04 02/20/23 23:59 36.6 C 92 H 18 113/69 91 O2 Del Method O2 Del Method 02/21/23 11:20 Room Air 02/21/23 07:55 Room Air 02/21/23 07:44 02/21/23 03:15 Room Air 02/21/23 03:13 Room Air 02/21/23 03:04 Room Air 02/20/23 23:59 Room Air
[2023-02-21] MEDS ORDERED: POLYETHYLENE (MIRALAX) 17 GM PACK ONE (11:58)
[2023-02-21] MEDS: bisacodyL 10 MG SUPP PR SCH (12:00)
--- NOTE | 2023-02-21 14:53 | XRay Report ---
KUB CLINICAL HISTORY: Small bowel obstruction. FINDINGS: 2 AP, portable, supine abdominal radiographs compared to study dated 02/17/2023 and correla presley with abdominal CT dated 02/20/2023. Again seen are distended and gas-filled loops of small bowel in the midabdomen indicating persistent obstruction. No evidence of intraperitoneal free air is seen on these supine images. There are no abnormal abdominal calcifications. Phleboliths are seen in the p miesha. Bilateral iliac stents are noted. The skeletal structures are osteopenic and appear intact. IMPRESSION: Persistent small bowel obstruction. This is likely unchanged from yesterday's CT scan. Di stention has somewhat increased from the 02/17/2023 radiographs. Electronically signed by: Shaheen Blanca M.D. 02/21/2023 2:51 PM
[2023-02-21] MEDS: MELATONIN 3 MG TAB PO SCH (21:30)
[2023-02-21] MEDS: droNABinol 2.5 MG CAP PO SCH (21:30)
[2023-02-21] MEDS: OLANZAPINE 2.5 MG TAB PO SCH (21:32)
[2023-02-21] MEDS: OXYBUTYNIN CHLORIDE XL 5 MG TABCR PO SCH (21:32)
[2023-02-22] MEDS: SODIUM CHLORIDE 0.9% 1,000 ML IV SCH (05:55)
[2023-02-22] MEDS: ENOXAPARIN 100 MG/1ML SYR SQ SCH ×2 (05:55→18:40)
[2023-02-22 06:42] LABS: Hematocrit (blood only) 26.6 % (37.0-47.0); Mean Corpuscular Hgb Conc 30.1 g/dL (32.0-36.0); Mean Corpuscular Volume 73.1 fL (80.0-100.0); Mean Platelet Volume 9.1 fL (9.4-12.4); Platelet Count 412 K/uL (130-400); RDW Coefficient of Variation 22.9 % (11.5-14.5); Red Blood Count 3.64 M/uL (4.20-5.40); White Blood Count 3.35 K/ul (4.8-10.8)
[2023-02-22 07:03] LABS: Anion Gap 8 (3-11); BUN Creatinine Ratio 14.3 (10-20); Blood Urea Nitrogen 4 mg/dl (6-23); Calcium 8.8 mg/dl (8.6-10.3); Carbon Dioxide 25 mmol/L (21-32); Chloride 105 mmol/L (98-107); Creatinine Clr Calc Pharmacy 220.8 ml/min; Est GFR (African American) > 150.0 ml/min; Est GFR (Non-African American) 134.7 ml/min; Glucose 86 mg/dl (70-99(Fasting)); Magnesium 1.4 mg/dl (1.7-2.4); Phosphorus 3.4 mg/dl (2.5-4.9); Potassium 3.5 mmol/L (3.5-5.1); Sodium 138 mmol/L (136-145)
--- NOTE | 2023-02-22 07:20 | Hospitalist Progress Note ---
Date of Service February 22, 2023 Assessment & Plan (1) Nausea & vomiting: (2) Abdominal pain: Plan: Patient is 52 y/o F with PMH stage IV cervical cancer with metastasis to lungs, pelvis & vertebrae, chronic thrombosis right femoral vein, BLE thrombectomy and stenting on chronic Lovenox and Pletal presented to ER with c/o N/V and abdominal pain. History recurrent N/V, abdominal pain, however intractable nausea, vomiting started yesterday In ER afebrile, P: 128-102, BP: 113/68, R: 20, 95% on RA CT ABD/PELVIS:Mildly dilated fluid-filled small bowel with decompressed terminal ileum. However, no transition point identified. The findings favor an enteritis /ileus. However, a partial small bowel obstruction could appear similar. Small amount of ascites. No pneumatosis, free air or portal venous gas. Mildly distended gallbladder. However, no pericholecystic infiltration to strongly suggest acute cholecystitis. Moderate amount of stool within the colon and rectum. GALLBLADDER US: Moderate gallbladder distention. However, no gallstones. No sonographic Montanez sign. No sonographic evidence for acute cholecystitis. Mild biliary ductal dilatation. This could be correlated with liver function tests. Trace perihepatic ascites. Marked right renal atrophy. Nausea and vomiting likely multifactorial including ileus secondary to fentanyl patch use, chemotherapy contributing, etc. GI Dr. Ovalles Case consulted-no procedures recommended initially, recommend supportive care Given as needed antiemetics, etc. Initially improving However abdominal cramping progressed - yesterday 02/20 had a lot of pain and cramping No bowel movements, no flatus Repeated CT abdomen and pelvis: Bowel: Numerous gas distended loops of small bowel are seen measuring up to 37 mm in diameter. There is narrowing in the distal ileum which is nonspecific. The colon is distended with prominent liquid contents throughout. IMPRESSION: 1. Findings are compatible with worsening ileus without a transition point, less likely a partial small bowel obstruction in the distal ileum. 2. Partial visualization of right ileal lymph node conglomerate with narrowing of the iliac vein stent, similar to prior exam. 02/21 - Discussed w/ GI ([facility]) Likely ileus, also she may have pSBO related to cervical cancer as well. Laxative regimen - Increase Miralax to 17g BID; Senna 1 tab daily ; add Dulcolax 10mg suppository daily [place] and Tap water enema x 2 today Will try Marinol to treat pain, to help decrease narcotic requirement. Daily KUB till ileus resolution 02/22 Pt had a BM. feeling better. no nausea. will try clear liquid diet. (3) Hypomagnesemia: Plan: Magnesium: 1.4 today - replace and monitor K 3.5 - replace and monitor - keep K close to 4 (4) Primary cervical cancer with metastasis to other site: Plan: History of metastatic cervical cancer. Metastasis to lungs, pelvis, vertebrae reported by patient. Initially diagnosed 2013 CT chest: Multiple scattered irregular nodules seen throughout the lungs with associated groundglass halos. The majority of these demonstrate central cavitation. These favor cavitary metastatic foci. However, an atypical/fungal infection or septic pulmonary emboli also remain in the differential diagnosis. Necrotic mediastinal and hilar lymphadenopathy likely representing metastatic disease. Patient without cough, shortness of breath. 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 History multiple lower extremity venous thrombectomy and stenting procedures, most recent in 2021 at [facility] in [facility] History LLE lymphedema Continue Lovenox, Pletal, per patient's IR and oncologist Continue outpatient PT lymphedema therapy DVT Prophylaxis On Lovenox twice daily Full Code as per discussion with patient, however states if poor prognosis or requires prolonged ventilation would want care discontinued Follows with Dr Kristyn Brown for routine care Disposition anticipate d/c home when medically stable Admission and Anticipated Discharge Date Admission Date: February 16, 2023 Subjective Follow-up for nausea and vomiting, secondary to ileus, pSBO Seen resting in bed, comfortable, not in distress Feeling better, had a BM today No fevers or chills, chest pain, shortness of breath No other symptoms Discussed yesterday w/ GI at the bedside. Review of Systems Review of Systems: All systems reviewed & are unremarkable except as noted in Subjective Physical Exam Physical Exam: General- oriented x 3, not in distress, speaks in sentences with no effort or accessory muscle use Eyes- anicteric Neck- no JVD Lungs- clear breath sounds bilaterally Heart- normal rate, regular rhythm; no murmurs Abdomen-positive bowel sounds, nondistended, soft, mild epigastric tenderness Extremities- no pretibial edema, no calf tenderness Neuro- alert, oriented x 3; no gross focal neurologic deficits Skin- warm & dry Results & Data Results & Data Vital Signs (Past 12 Hours) Vital Signs Temp Pulse Pulse Resp BP Pulse Ox O2 Del Method 02/22/23 04:18 36.5 C 107 H 18 107/71 90 Room Air 02/22/23 03:02 Room Air 02/22/23 03:00 02/22/23 00:00 94 H 02/21/23 23:45 36.5 C 101 H 18 123/67 91 Room Air 02/21/23 21:01 36.7 C 103 H 18 120/73 90 Room Air O2 Del Method 02/22/23 04:18 02/22/23 03:02 02/22/23 03:00 Room Air 02/22/23 00:00 02/21/23 23:45 02/21/23 21:01 Laboratory Results 02/22/23 Range/Units 05:54 WBC 3.35 L (4.8-10.8) K/ul RBC 3.64 L (4.20-5.40) M/uL Hgb 8.0 L (12.0-16.0) g/dl Hct 26.6 L (37.0-47.0) % MCV 73.1 L (80.0-100.0) fL MCH 22.0 L (25.0-34.0) pg MCHC 30.1 L (32.0-36.0) g/dL RDW Std Deviation 60.0 H (36.4-46.3) fL RDW Coeff of Luis 22.9 H (11.5-14.5) % Plt Count 412 H (130-400) K/uL MPV 9.1 L (9.4-12.4) fL Sodium 138 (136-145) mmol/L Potassium 3.5 (3.5-5.1) mmol/L Chloride 105 (98-107) mmol/L Carbon Dioxide 25 (21-32) mmol/L Anion Gap 8 (3-11) BUN 4 L (6-23) mg/dl Creatinine 0.28 L (0.6-1.2) mg/dl Est Cr Clr Drug Dosing 220.8 ml/min Est GFR ( Amer) > 150.0 ml/min Est GFR (Non-Af Amer) 134.7 ml/min BUN/Creatinine Ratio 14.3 (10-20) Glucose 86 (70-99(Fasting)) mg/dl Calcium 8.8 (8.6-10.3) mg/dl Phosphorus 3.4 (2.5-4.9) mg/dl Magnesium 1.4 L (1.7-2.4) mg/dl Medications Administered Current Inpatient Medications Acetaminophen (Acetaminophen 325 Mg Tab) 650 mg PO Q4H PRN PRN Reason: Pain or Fever Stop: 03/18/23 18:33 Artificial Tears (Artificial Tears) 1 drops OPB QID PRN PRN Reason: Dryness Stop: 03/18/23 18:41 Bisacodyl (Bisacodyl 10 Mg Supp) 10 mg AK DAILY [facility] Stop: 03/23/23 11:44 Last Admin: 02/21/23 12:00 Dose: 10 mg Cilostazol (Cilostazol 100 Mg Tab) 50 mg PO BID [facility] Stop: 03/18/23 20:59 Last Admin: 02/21/23 21:32 Dose: 50 mg Dronabinol (Dronabinol 2.5 Mg Cap) 2.5 mg PO BID [facility] Stop: 03/23/23 20:59 Last Admin: 02/21/23 21:30 Dose: 2.5 mg Duloxetine HCl (Duloxetine Hcl 30 Mg Cap) 30 mg PO DAILY [facility] Stop: 03/18/23 20:59 Last Admin: 02/21/23 09:20 Dose: 30 mg Enoxaparin Sodium (Enoxaparin 100 Mg/1ml Syr) 100 mg SQ BID@0700,1900 [facility] Stop: 03/19/23 06:59 Last Admin: 02/22/23 05:55 Dose: 100 mg Fentanyl (Fentanyl 12 Mcg/Hr Tdsy) 12 mcg TD Q72H [facility] Stop: 03/02/23 20:59 Last Admin: 02/19/23 22:18 Dose: 12 mcg Gabapentin (Gabapentin 100 Mg Cap) 200 mg PO BID [facility] Stop: 03/18/23 20:59 Last Admin: 02/21/23 21:33 Dose: 200 mg Heparin Sodium (Porcine) (Heparin 100 Unit/Ml 5ml Flush) 5 ml FLUSH PRN PRN PRN Reason: Flush Stop: 03/19/23 00:11 Last Admin: 02/18/23 10:45 Dose: 5 ml Hydromorphone HCl (Hydromorphone Inj 1 Mg/Ml Syringe) 1 mg IV Q4H PRN PRN Reason: Severe Pain (Scale 7, 8, 9,10) Stop: 03/02/23 18:33 Last Admin: 02/21/23 18:30 Dose: 1 mg Sodium Chloride (Nss) 1,000 mls @ 75 mls/hr IV .[id number] [facility] Stop: 03/20/23 11:14 Last Admin: 02/22/23 05:55 Dose: 75 mls/hr Pantoprazole Sodium 40 mg/ (Syringe) 10 mls @ 5 mls/min IV BID [facility] Stop: 03/21/23 11:39 Last Admin: 02/21/23 21:32 Dose: 5 mls/min Promethazine HCl 12.5 mg/ (Sodium Chloride) 50.5 mls @ 202 mls/hr IV Q6H PRN PRN Reason: Nausea And Vomiting Stop: 03/22/23 15:54 Last Infusion: 02/21/23 10:02 Dose: Infused Potassium Chloride (K Rohan / Wtr) 10 meq in 100 mls @ 100 mls/hr IV Q1H [facility] Stop: 02/22/23 10:14 Magnesium Sulfate/Dextrose (Magnesium Sulfate / D5w) 1 gm in 100 mls @ 50 mls/hr IV Q2H [facility] Stop: 02/22/23 11:29 Melatonin (Melatonin 3 Mg Tab) 3 mg PO HS [facility] Stop: 03/18/23 20:59 Last Admin: 02/21/23 21:30 Dose: 3 mg Miscellaneous (Check Fentanyl Patch Placement) 1 each N/A QS [facility] Stop: 03/19/23 00:00 Last Admin: 02/21/23 21:36 Dose: 1 each Miscellaneous (Fentanyl Patch Remove & Waste) 1 each N/A Q3D@2100 [facility] Stop: 03/18/23 20:59 Last Admin: 02/19/23 22:12 Dose: 1 each Olanzapine (Olanzapine 2.5 Mg Tab) 2.5 mg PO HS [facility] Stop: 03/18/23 20:59 Last Admin: 02/21/23 21:32 Dose: 2.5 mg Ondansetron HCl (Ondansetron Inj 2 Mg/Ml 2 Ml Vial) 4 mg IV Q6H PRN PRN Reason: Nausea Stop: 03/18/23 18:33 Last Admin: 02/21/23 04:35 Dose: 4 mg Oxybutynin Chloride (Oxybutynin Chloride Xl 5 Mg Tabcr) 10 mg PO PM [facility] Stop: 03/18/23 20:59 Last Admin: 02/21/23 21:32 Dose: 10 mg Polyethylene Glycol (Polyethylene (Miralax) 17 Gm Pack) 17 gm PO BID [facility] Stop: 03/23/23 20:59 Last Admin: 02/21/23 21:30 Dose: 17 gm Senna/Docusate Sodium (Docusate Sodium/Senna 50/8.6mg Tab) 1 tab PO QAM [facility] Stop: 03/21/23 21:54 Last Admin: 02/21/23 09:19 Dose: 1 tab
[2023-02-22] MEDS: POTASSIUM CHLORIDE / WTR 10 MEQ/100 ML PLCT IV SCH ×3 (07:47→10:12)
[2023-02-22] MEDS: MAGNESIUM SULFATE / D5W 1 GM/100 ML BAG IV SCH ×2 (07:50→09:45)
[2023-02-22] MEDS: CHECK fentaNYL PATCH PLACEMENT SCH ×2 (07:51→17:08)
[2023-02-22] MEDS: GABAPENTIN 100 MG CAP PO SCH ×2 (07:51→20:16)
[2023-02-22] MEDS: bisacodyL 10 MG SUPP PR SCH (07:53)
[2023-02-22] MEDS: cilostazoL 100 MG TAB PO SCH ×2 (07:53→20:15)
[2023-02-22] MEDS: DOCUSATE SODIUM/SENNA 50/8.6MG TAB PO SCH (07:54)
[2023-02-22] MEDS: droNABinol 2.5 MG CAP PO SCH ×2 (07:54→20:16)
[2023-02-22] MEDS: PANTOprazole 40 MG in SYRINGE 0 ML IV SCH ×2 (07:55→20:15)
[2023-02-22] MEDS: DULoxetine HCL 30 MG CAP PO SCH (07:55)
[2023-02-22] MEDS: POLYETHYLENE (MIRALAX) 17 GM PACK PO SCH ×2 (07:55→20:17)
--- NOTE | 2023-02-22 10:26 | XRay Report ---
XR KUB/Abdomen 1 view CLINICAL HISTORY: re-eval ileus TECHNIQUE: 1 view of the abdomen was obtained. Comparison: Comparison is made to abdomen radiograph 02/21/2023 FINDINGS: Lung bases are unremarkable. Bilateral iliac stents are seen. Multiple gas-distended loops of small b owel are again seen measuring up to 37 mm, decreased from prior exam. Small stool burden is seen. IMPRESSION: Interval improvement in previously noted ileus/obstruction with some remaining gas distended loops of small bowel. ACT 112: Negative or not required by law. Electronically signed by: Cristino Karimi M.D. 02/22/2023 10:23 AM
[2023-02-22] MEDS: OXYBUTYNIN CHLORIDE XL 5 MG TABCR PO SCH (20:15)
[2023-02-22] MEDS: OLANZAPINE 2.5 MG TAB PO SCH (20:16)
[2023-02-22] MEDS: fentaNYL 12 MCG/HR TDSY TD SCH (20:17)
[2023-02-22] MEDS: MELATONIN 3 MG TAB PO SCH (20:23)
[2023-02-22] MEDS ORDERED: rOPINIRole HCL 0.25 MG TABLET PO STA (23:06)
[2023-02-22] MEDS: ACETAMINOPHEN 325 MG TAB PO PRN (23:15)
[2023-02-23] MEDS: CHECK fentaNYL PATCH PLACEMENT SCH ×3 (00:08→15:38)
[2023-02-23] MEDS: ACETAMINOPHEN 325 MG TAB PO PRN ×3 (06:07→23:16)
[2023-02-23] MEDS: ENOXAPARIN 100 MG/1ML SYR SQ SCH ×2 (06:08→17:58)
[2023-02-23 06:47] LABS: Anion Gap 6 (3-11); BUN Creatinine Ratio 15.4 (10-20); Blood Urea Nitrogen 4 mg/dl (6-23); Calcium 8.6 mg/dl (8.6-10.3); Carbon Dioxide 25 mmol/L (21-32); Chloride 106 mmol/L (98-107); Creatinine Clr Calc Pharmacy 218.6 ml/min; Est GFR (African American) > 150.0 ml/min; Glucose 85 mg/dl (70-99(Fasting)); Magnesium 1.4 mg/dl (1.7-2.4); Phosphorus 3.1 mg/dl (2.5-4.9); Potassium 3.4 mmol/L (3.5-5.1); Sodium 137 mmol/L (136-145)
[2023-02-23] MEDS ORDERED: POTASSIUM CHLORIDE CRTAB 20 MEQ TABCR PO STA (08:12)
[2023-02-23] MEDS: droNABinol 2.5 MG CAP PO SCH ×2 (08:42→20:59)
[2023-02-23] MEDS: SODIUM CHLORIDE 0.9% 1,000 ML IV SCH ×2 (08:43→18:41)
[2023-02-23] MEDS: GABAPENTIN 100 MG CAP PO SCH ×2 (08:44→21:00)
[2023-02-23] MEDS: MAGNESIUM SULFATE / D5W 1 GM/100 ML BAG IV SCH ×2 (08:44→10:51)
[2023-02-23] MEDS: POTASSIUM CHLORIDE / WTR 10 MEQ/100 ML PLCT IV SCH ×3 (08:44→11:19)
[2023-02-23] MEDS: cilostazoL 100 MG TAB PO SCH ×2 (08:45→20:59)
[2023-02-23] MEDS: DULoxetine HCL 30 MG CAP PO SCH (08:46)
[2023-02-23] MEDS: DOCUSATE SODIUM/SENNA 50/8.6MG TAB PO SCH (08:46)
[2023-02-23] MEDS: bisacodyL 10 MG SUPP PR SCH (08:46)
[2023-02-23] MEDS: POLYETHYLENE (MIRALAX) 17 GM PACK PO SCH ×2 (08:47→21:00)
[2023-02-23] MEDS: PANTOprazole 40 MG in SYRINGE 0 ML IV SCH ×2 (09:55→21:00)
[2023-02-23] MEDS: MAGNESIUM OXIDE 400 MG TAB PO SCH ×2 (09:56→21:00)
--- NOTE | 2023-02-23 10:33 | Gastroenterology Progress Note ---
Date of Service February 23, 2023 Assessment & Plan (1) Abdominal pain: Plan: She is tolerating liquids and having bowel movements. Would advance diet and see how she does. Admission and Anticipated Discharge Date Admission Date: February 16, 2023 Subjective She is feeling better. Having multiple bowel movements and passing gas. She doesn't feel as bloated either. KUB yesterday showed improvement Results & Data Vital Signs (Past 12 Hours) Vital Signs Temp Pulse Pulse Resp BP Pulse Ox O2 Del Method 02/23/23 10:17 99 H 02/23/23 07:52 36.9 C 111 H 20 106/67 91 Room Air 02/23/23 07:35 Room Air 02/23/23 03:17 36.6 C 105 H 16 123/75 93 Room Air 02/23/23 01:31 Room Air 02/22/23 23:29 36.5 C 100 H 14 110/71 95 Room Air
--- NOTE | 2023-02-23 15:24 | Hospitalist Progress Note ---
Date of Service February 23, 2023 Assessment & Plan (1) Nausea & vomiting: (2) Abdominal pain: Plan: Patient is 52 y/o F with PMH stage IV cervical cancer with metastasis to lungs, pelvis & vertebrae, chronic thrombosis right femoral vein, BLE thrombectomy and stenting on chronic Lovenox and Pletal presented to ER with c/o N/V and abdominal pain. History recurrent N/V, abdominal pain, however intractable nausea, vomiting started yesterday In ER afebrile, P: 128-102, BP: 113/68, R: 20, 95% on RA CT ABD/PELVIS:Mildly dilated fluid-filled small bowel with decompressed terminal ileum. However, no transition point identified. The findings favor an enteritis /ileus. However, a partial small bowel obstruction could appear similar. Small amount of ascites. No pneumatosis, free air or portal venous gas. Mildly distended gallbladder. However, no pericholecystic infiltration to strongly suggest acute cholecystitis. Moderate amount of stool within the colon and rectum. GALLBLADDER US: Moderate gallbladder distention. However, no gallstones. No sonographic Montanez sign. No sonographic evidence for acute cholecystitis. Mild biliary ductal dilatation. This could be correlated with liver function tests. Trace perihepatic ascites. Marked right renal atrophy. Nausea and vomiting likely multifactorial including ileus secondary to fentanyl patch use, chemotherapy contributing, etc. GI Dr. Ovalles Case consulted-no procedures recommended initially, recommend supportive care Given as needed antiemetics, etc. Initially improving However abdominal cramping progressed - yesterday 02/20 had a lot of pain and cramping No bowel movements, no flatus Repeated CT abdomen and pelvis: Bowel: Numerous gas distended loops of small bowel are seen measuring up to 37 mm in diameter. There is narrowing in the distal ileum which is nonspecific. The colon is distended with prominent liquid contents throughout. IMPRESSION: 1. Findings are compatible with worsening ileus without a transition point, less likely a partial small bowel obstruction in the distal ileum. 2. Partial visualization of right ileal lymph node conglomerate with narrowing of the iliac vein stent, similar to prior exam. 02/21 - Discussed w/ GI ([facility]) Likely ileus, also she may have pSBO related to cervical cancer as well. Laxative regimen - Increase Miralax to 17g BID; Senna 1 tab daily ; add Dulcolax 10mg suppository daily [place] and Tap water enema x 2 today Will try Marinol to treat pain, to help decrease narcotic requirement. Daily KUB till ileus resolution 02/22 Pt had a BM. feeling better. no nausea. will try clear liquid diet. 02/23 Tolerating clear liquids and had full liquid for lunch today w/o any issues. (3) Hypomagnesemia: Plan: Magnesium: 1.4 today - replace and monitor Hypokalemia K 3.5 - replace and monitor - keep K close to 4 (4) Primary cervical cancer with metastasis to other site: Plan: History of metastatic cervical cancer. Metastasis to lungs, pelvis, vertebrae reported by patient. Initially diagnosed 2013 CT chest: Multiple scattered irregular nodules seen throughout the lungs with associated groundglass halos. The majority of these demonstrate central cavitation. These favor cavitary metastatic foci. However, an atypical/fungal infection or septic pulmonary emboli also remain in the differential diagnosis. Necrotic mediastinal and hilar lymphadenopathy likely representing metastatic disease. Patient without cough, shortness of breath. 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 Plan to discharge on Marinol. (5) Chronic deep vein thrombosis (DVT): Plan: History of chronic thrombosis right femoral vein. History multiple lower extremity venous thrombectomy and stenting procedures, most recent in 2021 at [facility] in [facility] History LLE lymphedema Continue Lovenox, Pletal, per patient's IR and oncologist Continue outpatient PT lymphedema therapy DVT Prophylaxis On Lovenox twice daily Full Code as per discussion with patient, however states if poor prognosis or requires prolonged ventilation would want care discontinued Follows with Dr Kristyn Brown for routine care Disposition anticipate d/c home when medically stable, possibly tmrw Admission and Anticipated Discharge Date Admission Date: February 16, 2023 Subjective Follow-up for nausea and vomiting, secondary to ileus, pSBO Seen resting in bed, comfortable, not in distress Feeling much better, had several BMs No fevers or chills, chest pain, shortness of breath No other symptoms Tolerating clear liquid diet and had full liquid for lunch w/o any issues Review of Systems Review of Systems: All systems reviewed & are unremarkable except as noted in Subjective Physical Exam Physical Exam: General- oriented x 3, not in distress, speaks in sentences with no effort or accessory muscle use Eyes- anicteric Neck- no JVD Lungs- clear breath sounds bilaterally Heart- normal rate, regular rhythm; no murmurs Abdomen-positive bowel sounds, nondistended, soft, mild epigastric tenderness (much improved) Extremities- no pretibial edema, no calf tenderness Neuro- alert, oriented x 3; no gross focal neurologic deficits Skin- warm & dry Results & Data Results & Data Vital Signs (Past 12 Hours) Vital Signs Temp Pulse Pulse Resp BP Pulse Ox O2 Del Method 02/23/23 11: 36.7 C 111 H 18 105/71 97 Room Air 02/23/23 10:17 99 H 02/23/23 07:52 36.9 C 111 H 20 106/67 91 Room Air 02/23/23 07:35 Room Air Laboratory Results 02/23/23 Range/Units 06:04 Sodium 137 (136-145) mmol/L Potassium 3.4 L (3.5-5.1) mmol/L Chloride 106 (98-107) mmol/L Carbon Dioxide 25 (21-32) mmol/L Anion Gap 6 (3-11) BUN 4 L (6-23) mg/dl Creatinine 0.26 L (0.6-1.2) mg/dl Est Cr Clr Drug Dosing 218.6 ml/min Est GFR ( Amer) > 150.0 ml/min Est GFR (Non-Af Amer) 138.0 ml/min BUN/Creatinine Ratio 15.4 (10-20) Glucose 85 (70-99(Fasting)) mg/dl Calcium 8.6 (8.6-10.3) mg/dl Phosphorus 3.1 (2.5-4.9) mg/dl Magnesium 1.4 L (1.7-2.4) mg/dl Medications Administered Current Inpatient Medications Acetaminophen (Acetaminophen 325 Mg Tab) 650 mg PO Q4H PRN PRN Reason: Pain or Fever Stop: 03/18/23 18:33 Last Admin: 02/23/23 06:07 Dose: 650 mg Artificial Tears (Artificial Tears) 1 drops OPB QID PRN PRN Reason: Dryness Stop: 03/18/23 18:41 Bisacodyl (Bisacodyl 10 Mg Supp) 10 mg [place] DAILY [facility] Stop: 03/23/23 11:44 Last Admin: 02/23/23 08:46 Dose: 10 mg Cilostazol (Cilostazol 100 Mg Tab) 50 mg PO BID [facility] Stop: 03/18/23 20:59 Last Admin: 02/23/23 08:45 Dose: 50 mg Dronabinol (Dronabinol 2.5 Mg Cap) 2.5 mg PO BID [facility] Stop: 03/23/23 20:59 Last Admin: 02/23/23 08:42 Dose: 2.5 mg Duloxetine HCl (Duloxetine Hcl 30 Mg Cap) 30 mg PO DAILY [facility] Stop: 03/18/23 20:59 Last Admin: 02/23/23 08:46 Dose: 30 mg Enoxaparin Sodium (Enoxaparin 100 Mg/1ml Syr) 100 mg SQ BID@0700,1900 [facility] Stop: 03/19/23 06:59 Last Admin: 02/23/23 06:08 Dose: 100 mg Fentanyl (Fentanyl 12 Mcg/Hr Tdsy) 12 mcg TD Q72H [facility] Stop: 03/02/23 20:59 Last Admin: 02/22/23 20:17 Dose: 12 mcg Gabapentin (Gabapentin 100 Mg Cap) 200 mg PO BID [facility] Stop: 03/18/23 20:59 Last Admin: 02/23/23 08:44 Dose: 200 mg Heparin Sodium (Porcine) (Heparin 100 Unit/Ml 5ml Flush) 5 ml FLUSH PRN PRN PRN Reason: Flush Stop: 03/19/23 00:11 Last Admin: 02/18/23 10:45 Dose: 5 ml Hydromorphone HCl (Hydromorphone Inj 1 Mg/Ml Syringe) 1 mg IV Q4H PRN PRN Reason: Severe Pain (Scale 7, 8, 9,10) Stop: 03/02/23 18:33 Last Admin: 02/21/23 18:30 Dose: 1 mg Pantoprazole Sodium 40 mg/ (Syringe) 10 mls @ 5 mls/min IV BID [facility] Stop: 03/21/23 11:39 Last Admin: 02/23/23 09:55 Dose: 5 mls/min Promethazine HCl 12.5 mg/ (Sodium Chloride) 50.5 mls @ 202 mls/hr IV Q6H PRN PRN Reason: Nausea And Vomiting Stop: 03/22/23 15:54 Last Infusion: 02/21/23 10:02 Dose: Infused Sodium Chloride (Nss) 1,000 mls @ 80 mls/hr IV .[id number] [facility] Stop: 03/25/23 08:14 Last Admin: 02/23/23 08:43 Dose: 80 mls/hr Magnesium Oxide (Magnesium Oxide 400 Mg Tab) 400 mg PO BID [facility] Stop: 03/25/23 08:59 Last Admin: 02/23/23 09:56 Dose: 400 mg Melatonin (Melatonin 3 Mg Tab) 3 mg PO HS [facility] Stop: 03/18/23 20:59 Last Admin: 02/22/23 20:23 Dose: 3 mg Miscellaneous (Check Fentanyl Patch Placement) 1 each N/A QS [facility] Stop: 03/19/23 00:00 Last Admin: 02/23/23 08:43 Dose: 1 each Miscellaneous (Fentanyl Patch Remove & Waste) 1 each N/A Q3D@2100 [facility] Stop: 03/18/23 20:59 Last Admin: 02/22/23 20:17 Dose: 1 each Olanzapine (Olanzapine 2.5 Mg Tab) 2.5 mg PO HS [facility] Stop: 03/18/23 20:59 Last Admin: 02/22/23 20:16 Dose: 2.5 mg Ondansetron HCl (Ondansetron Inj 2 Mg/Ml 2 Ml Vial) 4 mg IV Q6H PRN PRN Reason: Nausea Stop: 03/18/23 18:33 Last Admin: 02/21/23 04:35 Dose: 4 mg Oxybutynin Chloride (Oxybutynin Chloride Xl 5 Mg Tabcr) 10 mg PO PM [facility] Stop: 03/18/23 20:59 Last Admin: 02/22/23 20:15 Dose: 10 mg Polyethylene Glycol (Polyethylene (Miralax) 17 Gm Pack) 17 gm PO BID [facility] Stop: 03/23/23 20:59 Last Admin: 02/23/23 08:47 Dose: 17 gm Senna/Docusate Sodium (Docusate Sodium/Senna 50/8.6mg Tab) 1 tab PO QAM [facility] Stop: 03/21/23 21:54 Last Admin: 02/23/23 08:46 Dose: 1 tab
[2023-02-23] MEDS ORDERED: MAGNESIUM SULFATE / D5W 1 GM/100 ML BAG IV ONE (15:30)
[2023-02-23] MEDS: LIDOCAINE 5% 1 PATCH TD SCH (16:22)
[2023-02-23] MEDS: ONDANSETRON INJ 2 MG/ML 2 ML VIAL IV PRN (19:35)
[2023-02-23] MEDS: OLANZAPINE 2.5 MG TAB PO SCH (20:59)
[2023-02-23] MEDS: MELATONIN 3 MG TAB PO SCH (20:59)
[2023-02-23] MEDS: OXYBUTYNIN CHLORIDE XL 5 MG TABCR PO SCH (20:59)
[2023-02-24] MEDS: CHECK fentaNYL PATCH PLACEMENT SCH ×2 (00:06→09:03)
[2023-02-24] MEDS: ACETAMINOPHEN 325 MG TAB PO PRN (04:16)
[2023-02-24] MEDS: ENOXAPARIN 100 MG/1ML SYR SQ SCH (06:07)
[2023-02-24 06:44] LABS: Anion Gap 5 (3-11); BUN Creatinine Ratio 16.1 (10-20); Blood Urea Nitrogen 5 mg/dl (6-23); Calcium 8.3 mg/dl (8.6-10.3); Carbon Dioxide 25 mmol/L (21-32); Chloride 107 mmol/L (98-107); Creatinine Clr Calc Pharmacy 183.3 ml/min; Est GFR (African American) > 150.0 ml/min; Est GFR (Non-African American) 130.2 ml/min; Glucose 93 mg/dl (70-99(Fasting)); Magnesium 1.5 mg/dl (1.7-2.4); Potassium 3.7 mmol/L (3.5-5.1); Sodium 137 mmol/L (136-145)
[2023-02-24] MEDS ORDERED: POTASSIUM CHLORIDE CRTAB 20 MEQ TABCR PO STA (07:35)
[2023-02-24] MEDS: PANTOprazole 40 MG in SYRINGE 0 ML IV SCH (08:57)
[2023-02-24] MEDS: GABAPENTIN 100 MG CAP PO SCH (08:58)
[2023-02-24] MEDS: cilostazoL 100 MG TAB PO SCH (08:58)
[2023-02-24] MEDS: MAGNESIUM OXIDE 400 MG TAB PO SCH (08:58)
[2023-02-24] MEDS: bisacodyL 10 MG SUPP PR SCH (08:59)
[2023-02-24] MEDS: LIDOCAINE 5% 1 PATCH TD SCH (08:59)
[2023-02-24] MEDS: POLYETHYLENE (MIRALAX) 17 GM PACK PO SCH (09:02)
[2023-02-24] MEDS: DULoxetine HCL 30 MG CAP PO SCH (09:03)
[2023-02-24] MEDS: droNABinol 2.5 MG CAP PO SCH (09:20)
[2023-02-24] MEDS: MAGNESIUM SULFATE / D5W 1 GM/100 ML BAG IV SCH ×2 (09:24→12:15)
[2023-02-24] MEDS: DOCUSATE SODIUM/SENNA 50/8.6MG TAB PO SCH (09:26)
--- NOTE | 2023-02-24 09:32 | Discharge Summary ---
Date of Service February 24, 2023 Admission HPI Per Admitting Provider Patient is 52 y/o F with PMH stage IV cervical cancer with metastasis to lungs, pelvis & vertebrae, chronic thrombosis right femoral vein, BLE thrombectomy and stenting on chronic Lovenox and Pletal presented to ER with c/o N/V and abdominal pain. History obtained from patient, patient's spouse, and outpatient chart review. Patient reports has been getting intermittent epigastric and right upper quadrant abdominal pain with associated nausea and vomiting over the past months. Reports will get sudden onset of symptoms that usually last several hours and resolved with Bentyl or antinausea medicine. Her work-up is included an unremarkable outpatient colonoscopy on 12/07/2022. Patient reports had outpatient US RUQ that was unremarkable (imaging unavailable for review). Initially thought may be secondary to chemo or possible food intolerance with nuts, however patient reports has had continue symptoms. States yesterday had onset of epigastric and right upper quadrant pain with associated nausea and vomiting. Patient states had upwards of 50 episodes of emesis yesterday. Reports this episode feels like prior episodes however has been prolonged. States temp of 103F yesterday. Did not take any antipyretics secondary to vomiting. Denies any further recorded fevers or chills. States is moving bowels. Had 2 BMs today. Is on chronic Miralax and reports stools are normally soft. Has chronic LLE edema/lymphedema and currently doing PT lymphedema therapy with improvement. Last chemo on 01/30/23. Denies chills, diaphoresis, hematemesis, hematochezia, melena, FAUSTIN, dizziness, syncope, vision changes, neck pain, CP, SOB, orthopnea, palpitations, cough, sore throat, choking, otalgia, rhinorrhea, paresthesias, extremity weakness, other extremity edema, rashes, urinary symptoms. Community Action Worker/oncologist Dr Cardona, [facility], . Reports previously was in clinical trial at [facility] in [facility] however now following only with Dr Cardona. Dr Woods, interventional radiologist, [facility] in [facility] Admission Exam Per Admitting Provider General: no acute distress, chronic ill appearing female Head: normocephalic, atraumatic Eyes: PERRL, EOM's intact, conjunctiva non-injected, anicteric ENT: normal inspection external ears, nose, mucous membranes dry Neck: supple, trachea midline Lungs: clear, no respiratory distress, no wheezing/rhonchi/rales CV: tachycardia, regular rhythm, rate 102, no murmur Chest wall: +port right upper chest without surrounding erythema or edema Abd: normal BS, soft, +tender palpation epigastric and RUQ without rebound or guarding Ext: no cyanosis, no calf tenderness Neuro: A&O x 3, no focal deficits noted, normal affect Skin: warm, dry Principal Diagnosis Ileus, partial Small bowel obstruction Discharge Exam General- oriented x 3, not in distress, speaks in sentences with no effort or accessory muscle use Eyes- anicteric Neck- no JVD Lungs- clear breath sounds bilaterally Heart- normal rate, regular rhythm; no murmurs Abdomen-positive bowel sounds, nondistended, soft, mild epigastric tenderness (much improved) Extremities- no pretibial edema, no calf tenderness Neuro- alert, oriented x 3; no gross focal neurologic deficits Skin- warm & dry Discharge Data Allergies Allergy/AdvReac Type Severity Reaction Status Date / Time No Known Allergies Allergy Unverified 11/11/17 15:14 Consultations 02/16/23 15:04 ED Decision to Admit Stat 02/17/23 08:39 Consult Gastroenterology Routine Ordered Studies 02/16/23 10:50 CT abd pelvis IV con only Stat FINDINGS: Please note that the chest CT will be reported separately. Innumerable cavitary lesions with associated groundglass opacity are better depicted on that exam. No pneumatosis, free air or portal venous gas is present. A small amount of abdominal and pelvic ascites is noted. Gallbladder is mildly distended. There is no adjacent infiltration. No hepatic lesions are present. There is no biliary or pancreatic ductal dilatation. Spleen, adrenal glands and pancreas are unremarkable. There are left-sided renal parapelvic cysts. Marked right renal atrophy is noted. The majority of the small bowel is mildly dilated and fluid-filled. The terminal ileum is decompressed. A discrete transition point is not identified. Fluid collections are present. There is a moderate amount of stool within the colon and rectum. The appendix is not visualized. Bilateral iliac vein stent appears patent. However, the right iliac vein stent is narrowed by suspected right external iliac lymphadenopathy which measures 2.5 x 2.4 cm. There is age indeterminate occlusion of the right external iliac artery on image 243. There is distal reconstitution. Mixed sclerosis and lucency within the posterior right iliac bone extends for 8.8 cm. No additional osseous lesions are identified. Asymmetric left thigh stranding is noted IMPRESSION: 1. Mildly dilated fluid-filled small bowel with decompressed terminal ileum. However, no transition point identified. The findings favor an enteritis/ileus. However, a partial small bowel obstruction could appear similar. Small amount of ascites. No pneumatosis, free air or portal venous gas. 2. Innumerable cavitary lesions within the lungs with adjacent ground glass opacity. These are better depicted on the chest CT. Please see that report for further description. 3. Pathologic right external iliac lymphadenopathy which results in narrowing of the iliac vein stent. However, stent appears patent. 4. Age indeterminate occlusion of the right external iliac artery with distal reconstitution. 5. Mildly distended gallbladder. However, no pericholecystic infiltration to strongly suggest acute cholecystitis. This could be correlated with right upper quadrant pain. 6. Moderate amount of stool within the colon and rectum. 7. Mixed sclerosis and lucency within the right iliac bone. This is nonspecific and a metastatic lesion cannot be excluded. 8. Asymmetric left groin/thigh stranding. No fluid collection. 02/16/23 11:14 CT chest diagnostic w con Stat FINDINGS: There are old, healed bilateral rib fractures. No acute fractures within the chest. No suspicious lytic or blastic osseous lesions. The abdominal structures will be reported on the same day abdomen and pelvis CT. The thyroid gland enhances normally. Surgical clips within the right axilla. A right jugular central venous catheter terminates in the distal SVC. Normal esophagus. The heart is top normal in size. No pleural or pericardial effusions. Normal caliber thoracic aorta with no evidence for a dissection. The central pulmonary arteries appear patent. There is necrotic mediastinal and bilateral hilar lymphadenopathy. The dominant left hilar lymph node measures 2 cm. No pneumothorax. The central airways are patent. Multiple scattered irregular nodules seen throughout the lungs with associated groundglass halos. The majority of these demonstrate central cavitation. A dominant cavitary nodule within the right lower lobe on image 119 and measures 2.1 cm. A few the scattered nodules do not demonstrate central cavitation. Dominant solid nodule within the left upper lobe anteriorly on image 76 measures 2.1 cm. Additional patchy groundglass airspace opacities within the lung bases. IMPRESSION: 1. Multiple scattered irregular nodules seen throughout the lungs with associated groundglass halos. The majority of these demonstrate central cavitation. These favor cavitary metastatic foci. However, an atypical/fungal infection or septic pulmonary emboli also remain in the differential diagnosis. 2. Necrotic mediastinal and hilar lymphadenopathy likely representing metastatic disease. 3. The abdominal structures will be reported on the same day abdomen and pelvis CT. 02/16/23 16:16 US gallbladder Urgent FINDINGS: No hepatic lesions are identified. There is trace perihepatic ascites. The pancreas is obscured. The gallbladder is moderately distended. However, no gallstones are identified. There is no gallbladder wall thickening. No sonographic Montanez sign was elicited. There is borderline dilatation of the common bile duct, measuring 7 mm. The right kidney is markedly atrophic. There is no right hydronephrosis. The pancreas is obscured. IMPRESSION: 1. Moderate gallbladder distention. However, no gallstones. No sonographic M urphy sign. No sonographic evidence for acute cholecystitis. 2. Mild biliary ductal dilatation. This could be correlated with liver function tests. 3. Trace perihepatic ascites. 4. Marked right renal atrophy. 02/20/23 15:33 CT abd pelvis wo con Stat FINDINGS: Lower chest: Innumerable cavitary lesions in the chest are essentially unchanged from prior exam. Liver: Unremarkable. No focal lesions are seen. Gallbladder and biliary tree: No calcified gallstones. Normal caliber wall. No intra- or extrahepatic biliary ductal dilation. Pancreas: Unremarkable, no focal lesions. Spleen: Unremarkable. Adrenals: Unremarkable. Kidneys and ureters: Atrophic right kidney. Left parapelvic cysts are noted. Bladder: Limited evaluation due to underdistention. Reproductive organs: Unremarkable. Bowel: Numerous gas distended loops of small bowel are seen measuring up to 37 mm in diameter. There is narrowing in the distal ileum which is nonspecific. The colon is distended with prominent liquid contents throughout. Lymph nodes Retroperitoneal: Unremarkable. Pelvic: Right iliac conglomerate lymph nodes partially visualized Mesenteric: Subcentimeter lymph nodes are noted. Peritoneum: Normal. Vessels: Bilateral iliac stents are seen. There is narrowing of the right iliac stent which does not appear to represent hemodynamically significant stenosis. Abdominal wall: Mild body wall edema is seen along with injection granulomata. Bones: Minimal degenerative changes are seen. Redemonstration of mixed sclerotic and lucent lesion in the right iliac bone. IMPRESSION: 1. Findings are compatible with worsening ileus without a transition point, less likely a partial small bowel obstruction in the distal ileum. 2. Partial visualization of right ileal lymph node conglomerate with narrowing of the iliac vein stent, similar to prior exam. 3. Additional findings as above. Hospital Course (1) Nausea & vomiting: (2) Abdominal pain: Patient is 52 y/o F with PMH stage IV cervical cancer with metastasis to lungs, pelvis & vertebrae, chronic thrombosis right femoral vein, BLE thrombectomy and stenting on chronic Lovenox and Pletal presented to ER with c/o N/V and abdominal pain. History recurrent N/V, abdominal pain, however intractable nausea, vomiting started yesterday In ER afebrile, P: 128-102, BP: 113/68, R: 20, 95% on RA CT ABD/PELVIS:Mildly dilated fluid-filled small bowel with decompressed terminal ileum. However, no transition point identified. The findings favor an enteritis/ileus. However, a partial small bowel obstruction could appear similar. Small amount of ascites. No pneumatosis, free air or portal venous gas. Mildly distended gallbladder. However, no pericholecystic infiltration to strongly suggest acute cholecystitis. Moderate amount of stool within the colon and rectum. GALLBLADDER US: Moderate gallbladder distention. However, no gallstones. No so nographic Montanez sign. No sonographic evidence for acute cholecystitis. Mild biliary ductal dilatation. This could be correlated with liver function tests. Trace perihepatic ascites. Marked right renal atrophy. Nausea and vomiting likely multifactorial including ileus secondary to fentanyl patch use, chemotherapy contributing, etc. GI Dr. Ovalles Case consulted-no procedures recommended initially, recommend supportive care Given as needed antiemetics, etc. Initially improving However abdominal cramping progressed - yesterday 02/20 had a lot of pain and cramping No bowel movements, no flatus Repeated CT abdomen and pelvis: Bowel: Numerous gas distended loops of small bowel are seen measuring up to 37 mm in diameter. There is narrowing in the distal ileum which is nonspecific. The colon is distended with prominent liquid contents throughout. IMPRESSION: 1. Findings are compatible with worsening ileus without a transition point, less likely a partial small bowel obstruction in the distal ileum. 2. Partial visualization of right ileal lymph node conglomerate with narrowing of the iliac vein stent, similar to prior exam. 02/21 - Discussed w/ GI ([facility]) Likely ileus, also she may have pSBO related to cervical cancer as well. Laxative regimen - Increase Miralax to 17g BID; Senna 1 tab daily ; add Dulcolax 10mg suppository daily AL and Tap water enema x 2 today Will try Marinol to treat pain, to help decrease narcotic requirement. Daily KUB till ileus resolution 02/22 Pt had a BM. feeling better. no nausea. will try clear liquid diet. 02/23 Tolerating clear liquids and had full liquid for lunch today w/o any issues. 02/24 Feeling well, having BMs, tolerating diet. Would like to be discharged. Has an appointment with her oncologist on Sunday. (3) Hypomagnesemia: Magnesium: 1.5 today - replace and monitor - discharge on mag supplement Hypokalemia K 3.5 - replace and monitor - keep K close to 4 - discharge on k supplement (4) Primary cervical cancer with metastasis to other site: History of metastatic cervical cancer. Metastasis to lungs, pelvis, vertebrae reported by patient. Initially diagnosed 2013 CT chest: Multiple scattered irregular nodules seen throughout the lungs with associated groundglass halos. The majority of these demonstrate central cavitation. These favor cavitary metastatic foci. However, an atypical/fungal infection or septic pulmonary emboli also remain in the differential diagnosis. Necrotic mediastinal and hilar lymphadenopathy likely representing metastatic disease. Patient without cough, shortness of breath. Suspect these are metastatic findings Last chemo on 01/30/2023 Continue home gabapentin, fentanyl patch, hold home oral Dilaudid while receiving IV Dilaudid Community Action Worker/oncologist Dr Cardona, [facility], Started on Marinol by GI - helped pt not to use dilaudid and she is having BMs now. Plan to discharge on Marinol. (5) Chronic deep vein thrombosis (DVT): History of chronic thrombosis right femoral vein. History multiple lower extremity venous thrombectomy and stenting procedures, most recent in 2021 at [facility] in [facility] History LLE lymphedema Continue Lovenox, Pletal, per patient's IR and oncologist Continue outpatient PT lymphedema therapy DVT Prophylaxis On Lovenox twice daily Full Code as per discussion with patient, however states if poor prognosis or requires prolonged ventilation would want care discontinued Follows with Dr Kristyn Brown for routine care Total Time Total Time Spent Total Time Spent (In Minutes): 40 Discharge Plan Discharge Items Patient Disposition: Home - Self-Care Reason For Visit: N/V Discharge Diagnosis: Ileus, partial Small bowel obstruction Activity: Per Instructions section Non-emergency contact: Primary Care Provider, Specialist and Oncologist Call non-emergency contact if: you have any medication questions and your symptoms worsen Follow-up/Referrals: Kristyn Brown MD [Primary Care Provider] - Diet: Low Fiber Addtl Attending Provider Instructions: Follow up with your oncologist and primary care physician. Keep your appointment with oncologist next week. We also recommend that you follow up with your primary care physician within 1-2 weeks. Slowly advance your diet as tolerated. For now recommend low fiber diet. Recommend potassium and magnesium supplement. Dronabinol was sent to your pharmacy so that you could reduce your use of hydromorphone. Pending Studies at Discharge: No Stand-Alone Forms: My [facility] [place], Smoking Cessation Medications and DC Order Prescriptions: New magnesium oxide 400 mg (241.3 mg magnesium) Tablet 400 mg PO BID 10 Days Qty: 20 0RF dronabinol 2.5 mg Capsule 2.5 mg PO BID 7 Days Qty: 14 0RF potassium chloride 20 mEq tablet extended release 20 meq PO DAILY Qty: 7 0RF Continued polyethylene glycol 3350 [Miralax] 17 gram Powder In Packet 17 g PO DAILY oxybutynin chloride 10 mg tablet extended release 24hr 10 mg PO PM cilostazol 50 mg tablet 50 mg PO BID melatonin 3 mg Tablet 3 mg PO HS olanzapine 2.5 mg tablet 2.5 mg PO HS hydromorphone 2 mg tablet 2 mg PO Q4H PRN (Reason: Pain) gabapentin 100 mg capsule 200 mg PO BID enoxaparin 100 mg/mL syringe 100 mg subcut BID cyclosporine [Restasis] 0.05 % dropperette 1 drp OPB BID duloxetine 30 mg capsule,delayed release(DR/EC) 30 mg PO DAILY fentanyl 12 mcg/hr patch 72 hour 12 mcg transdermal Q72H Tyrvaya 0.03 mg/spray spray, metered, non-aerosol 1 spray INTRANASAL BID dicyclomine 10 mg capsule 10 mg PO TID Discharge Orders: Discharge Order (Routine); Ordered 02/24/23 Ordered By: Dwayne Duncan Admission Data Admit Date/Time: 02/16/23 15:55 Attending Provider: Dwayne Duncan Admit Provider: Jose G Geiger Primary Care Provider: Kristyn Brown Other Providers: Jose G Geiger; Miki Mills; Jared Cohen
== END 2023-02-24 13:00 | disposition home or self-care (01) | DRG 389 ==
LOC: ED 09:38 → SUATTDRO 15:55 → EDINP 15:55 → 2W 18:33

== ENCOUNTER 2023-03-27 22:13 | Inpatient (IN) ==
--- OUTSIDE RECORDS SUMMARY | 2023-03-27 22:20 | External Medical Summary | Summary of Care ---
Author Name Unknown Organization [facility] Address [address] [place] [address] Phone [phone] Care Team Providers Care Java J2Ee Architect Name Role Phone Kristyn Brown MD Primary Care Provid er Encounter Details Date Type Department Care Team (Late st Contact Info) Description 02/22/2023 Result Scan Unspecified Department Becky Roman CRNP [address] [place] [address] <No scans attached> Allergies Active Allergy Reactions Criticality Noted Date Comments Cephalexin Rash Low 01/05/2021 documented as of this encounter (statuses as of 02/23/2023) Medications Medication Sig Dispensed Refills Start Date [...] as of this encounter (statuses as of 02/23/2023) Active Problems Problem Noted Date Diagnosed Date Gastritis 07/25/2021 Overactive bladder 07/25/2021 Overview: hypertonicity of bladder Acute pyelonephritis 07/25/2021 Osteopenia 07/25/2021 Overview: prior to 2014 Hyperlipidemia 07/25/2021 Overview: elevated total c, ldl c and hdl c 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 Overview: l breast ductal hyperplasia, by biopsy Hydronephrosis 07/25/2021 Overview: right, stented Allergic rhinitis 07/25/2021 Drug abuse 06/09/2021 Alcohol abuse 06/09/2021 Peripheral arterial occlusive disease 10/22/2020 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 Adjustment disorder with anxiety 09/04/2019 Hypercalcemia 12/13/2018 Anxiety 07/31/2017 Overview: Zoloft Ureteral stricture, right 07/26/2017 Encounter for follow-up surveillance of cervical cancer 05/21/2017 Deep vein thrombosis (DVT) 10/10/2016 Overview: Recurred in 10/2017 (Initial x in 2016) History of antineoplastic chemotherapy 7 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 Leg edema, right 07/20/2016 History of radiation therapy 07/20/2016 History of infertility, female 07/20/2016 Malignant neoplasm of cervix 04/02/2013 documented as of this encounter (statuses as of 02/23/2023) Immunizations Name Administration Dates Next Due COVID-19 mRNA, LNP-s, No Pre serve, 2-Dose Series (Pfizer) 06/03/2020,05/11/2020 Pneumococcal Polysaccharide PPV23 (Pneumovax) Seasonal Influenza [...] drink = 0.6 oz pur e alcohol) AUDIT-C Answer Date Recorded Frequency of Alcohol Consumption 2-3 times a wee k 04/07/2019 Average Number of Drinks Not on file 020 Frequency of Binge Drinking Not on file 09/2019 Sex and Gender Information Value Date Recorded Sex Assigned at Not on file Gender Identity Not on file Sexual Orientation Not on file Job Start Date Occupation Industry Not on file Not on file Not on file documented as of this encounter Plan of Treatment Health Maintenance [...] *BASELINE EKG FOR HTN 2021 COVID-19 Vaccine ( season) 2022 07/11/2021, 11/26/2020, 06/03/2020, Additional history exists Influenza Vaccine (FLU shot) (#1) 2022 12/23/2019, 01/13/2019, 01/13/2019 COLONOSCOPY-EVERY 5 YRS AGES 18-100 12/08/2027 12/07/2022, 12/07/2022, 04/08/2019, Additional history exists GARDASIL-HPV IMMUNIZATION SERIES Aged Out No longer eligible based on patient's age to complete this topic MENINGOCOCCAL (MENACTRA/MENVEO) Aged Out No longer eligible based on patient's age to complete this topic documented as of this encounter Medical Devices Not on filedocumented as of this encounter Procedures Procedure Name Priority Date/Time Associated Diagnosis Comments RADIOLOGY SCANNED RESULT 02/22/2023 documented in this encounter Results * RADIOLOGY SCANNED RESULT (02/22/2023) 02/22/2023 Becky QUI[facility] documented in this encounter Advance Directives Latest [...] and were consensually agreed upon. Care Teams Java J2E[employer] Architect Relationship Specialty Start Date End Date Kristyn Brown MD [address] [place] [id number] PCP - General Family Medicine 08/08/21 documented as of this encounter
--- OUTSIDE RECORDS SUMMARY | 2023-03-27 22:20 | External Medical Summary | Summary of Care ---
Author Name Unknown Organization [facility] Address [address] [place] [address] Phone [phone] Care Team Providers Care Nuclear Control Room Operator Name Role Phone Kristyn Brown MD Primary Care Provid er Reason for Visit * Reason Onset Date Comments Hospital Follow-Up Low fiber and residue diet and would like to discuss, is concerned with getting in enough veggies; loazipine would like to discuss for renewal Hospital Follow-Up 03/19/2023 Encounter Details Date Type Department Care Team (Late st Contact Info) Description 03/19/2023 2:00 PM EST Office Visit [place] [address] [place] [address] Kristyn Brown MD [address] [place] [address] Hospital discharge follow-up*; Other insomnia; Hip pain, right; Pain from bone metastases (HCC) Allergies Active Allergy Reactions Criticality Noted Date Comments Cephalexin Rash Low 01/05/2021 documented as of this encounter (statuses as of 03/19/2023) Medications Medication Sig Dispensed Refills Start Date End Date Status Oxybutynin Chloride ER 10 MG Oral Tablet Extended Release 24 Hour (Ditropan XL) Take 1 Tab by mouth daily. 30 Tab 11 0 Active Desonide 0.05 % External Cream Apply to affected areas (on face) twice daily 0 1 Active hydrOXYzine HCl 10 MG Oral Tablet (Atarax) Take 10 mg by mouth. 0 1 Active Melatonin 3 MG Oral Tablet TAKE 1 TABLET BY MOUTH EVERYDAY AT BEDTIME 0 1 Active Ondansetron HCl 4 MG Oral Tablet (Zofran) take 1 tablet by mouth every 4 hours 0 1 Active Mupirocin 2 % External Ointment (Bactroban) Apply topically to affected area 2 times a day. Apply to the nose twice daily 22 g 0 1 Active Additional Information Patient not taking.Reported on 12/05/2022 Enoxaparin Sodium 150 MG/ML Subcutaneous Solution (Lovenox) Inject 128 mg under the skin every 12 hours. 0 Active Cilostazol 50 MG Oral Tablet (Pletal) Take 1 Tablet by mouth in the morning and 1 Tablet before bedtime. 0 1 Active Fluocinonide 0.05 % External Solution Apply topically to affected area . 0 2 Active Gabapentin 100 MG Oral Capsule (Neurontin) Take 2 Capsules by mouth in the morning and 2 Capsules before bedtime. 0 2 Active Fluticasone Propionate 50 MCG/ACT Nasal SuspensionIndicat ions:Acute sinusitis, recurrence not specified, unspecified location,Bronchit is due to COVID-19 virus,COVID-19,Ma lignant neoplasm of cervix, unspecified site (HCC),LRTI (lower respiratory tract infection) Administer into each nostril 2 Sprays in the morning. 1 Each 0 2 Active Additional Information Patient not taking.Reported on 12/05/2022 Ventolin HFA 108 (90 Base) MCG/ACT Inhalation Aerosol SolutionIndicatio ns:SOB (shortness of breath) Inhale by mouth 2 Puffs every 4 hours as needed for Wheezing or Dyspnea. 1 g 1 2 Active Additional Information Patient not taking.Reported on 12/05/2022 DULoxetine HCl 30 MG Oral Capsule Delayed Release Particles Take 1 Capsule by mouth in the morning. 0 Active prednisoLONE Acetate 1 % Ophthalmic [...] day. Uses for dry eyes 0 Active predniSONE 20 MG Oral Tablet (Deltasone) TAKE 2 TABLETS BY MOUTH DAILY FOR 30 DAYS 0 3 Active Potassium Chloride ER 20 MEQ Oral Tablet Extended Release Take 1 Tablet by mouth in the morning. 0 3 Active Polyethylene Glycol 3350 17 GM Oral Packet (Miralax) Take by mouth. 0 Active Magnesium Oxide -Mg Supplement 400 (240 Mg) MG Oral Tablet (Mag-Ox) TAKE 1 TABLET BY MOUTH TWICE A DAY FOR 10 DAYS 0 3 Active droNABinol 2.5 MG Oral Capsule (Marinol) Take 1 Capsule by mouth in the morning and 1 Capsule before bedtime. 0 3 Active Dicyclomine HCl 10 MG Oral Capsule (Bentyl) Take 1 Capsule by mouth. 0 Active Senna 8.6 MG Oral Capsule Take 17.2 mg by mouth. 0 2 Active cycloSPORINE 0.05 % Ophthalmic Emulsion (Restasis) 1 Drop. 0 2 Active OLANZapine 2.5 MG Oral Tablet (zyPREXA)Indicati ons:Other insomnia Take 2 Tablets by mouth at bedtime. 60 Tablet 5 3 Active Lidocaine 5 % External Patch (Lidoderm)Indicat ions:Hip pain, right,Pain from bone metastases (HCC) Place 1 Patch over 12 hours topically on the skin daily. 30 Patch 5 3 Active Sertraline HCl 100 MG Oral Tablet (Zoloft) Take by mouth 50 mg daily . 0 03/19/20 23 Discontinued OLANZapine 2.5 MG Oral Tablet (zyPREXA) Take 1 Tablet by mouth at bedtime. 0 2 03/19/20 23 Discontinued HYDROmorphone 2 mg OR TABS Take 0.5 Tablets by mouth every 4 hours as needed. 0 03/19/20 Discontinued(Adv erse reaction) Buprenorphine 10 MCG/HR Transdermal Patch Weekly Place topically on the skin 10 mcg once a week . 0 03/19/20 23 Discontinued cycloSPORINE 0.05 % Ophthalmic Emulsion Instill 1 Drop into both eyes in the morning and 1 Drop before bedtime. 0 03/19/20 Discontinued(Med ication/Dose Changed) documented as of this encounter (statuses as of 03/19/2023) Active Problems Problem Noted Date Diagnosed Date [...] as of this encounter (statuses as of 03/19/2023) Immunizations Name Administration Dates Next Due COVID-19 mRNA, LNP-s, No Pre serve, 2-Dose Series (Pfizer) 06/03/2020,05/11/2020 Pneumococcal Polysaccharide PPV23 (Pneumovax) Seasonal Influenza Virus Vac cine, Unspecified Formulation 12/23/2019,01/13/2019 Seasonal Influenza, Quadriva lent,with Preserve, 3 yr & above, IM 01/13/2019 TD - Tetanus/Diptheria (ADULT) 02/06/1988 TDAP (age 10 and older)(Boostrix) 09/15/2008 Zoster Vaccine Recombinant (Shingrix) 04/22/2021 documented as of this encounter Social History Tobacco Use Types Packs/Day Years Used Date Smoking Tobacco: Never Smokeless Tobacco: Never Tobacco Cessation:Counseling Given: Not Answered Alcohol Use Standard Drinks/Week Comments Never 0 (1 standard drink = 0.6 oz pur e alcohol) AUDIT-C Answer Date Recorded Frequency of Alcohol Consumption 2-3 times a wee k 04/07/2019 Average Number of Drinks Not on file 020 Frequency of Binge Drinking Not on file 09/2019 Hunger Vital Sign Answer Date Recorded Within the past 12 months, y ou worried that your food would run out before you got the money to buy more. Never true 03/12/20 23 Within the past 12 months, t he food you bought just didn't last and you didn't have money to get more. Never true 03/12/2023 Sex and Gender Information Value Date Recorded Sex Assigned at Female 03/12/2023 2:57 PM EST Gender Identity Female 03/12/2023 2:57 PM EST Sexual Orientation Straight 03/12/2023 2: 57 PM EST Job Start Date Occupation Industry Not on file Not on file Not on file documented as of this encounter Last Filed Vital Signs Vital Sign Reading Time Taken Comments Blood Pressure 112/62 03/19/2023 1:56 PM EST Pulse 111 03/19/2023 1:56 PM EST Temperature 35.8 C (96.4 F) 03/19/2023 1:56 PM ES T Respiratory Rate - - Oxygen Saturation 95% 03/19/2023 1:56 PM EST Inhaled Oxygen Concentration - - Weight 59.9 kg (132 lb 1.6 oz) 03/19/2023 1:56 P M EST Height - - Body Mass Index 22.67 12/07/2022 1:29 PM EDT documented in this encounter Progress Notes * Kristyn Brown MD - 03/19/2023 2:09 PM EST ASSESSMENT / PLAN: Anel Whitfield is a 52 year old female with PMHx 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, pelvis, vertebrae / chronic thrombosis R femoral vein / BLE thrombectomy and stenting on chronic lovenox and Pletal - Here for ADRIANA - admitted at [facility] the following dates 02/16-02/24 Presented with: acute on chronic - severe N/ V abdominal pain - unremarkable colonoscopy 12/07/22 Diagnosis: ileus Diagnostics: CT a/p concerning for SBO vs enteritis CT chest with cavitary lesions, known foci of mets Cholecystitis essentially ruled out with RUQ US Hospital stay complicated by: 1- abd pain - 02/22 had a BM, 02/23 tolerating clear liquids, Treatments / Consultation(s): 1- GI - supportive care - antiemetics, laxative, senna, dulcolax, marinol for pain Changes to chronic medications: 1 - DC hydromorphone - thought to be cause of ileus 2- for pain, continue marinol and lido patches and fentanyl patches Reviewed quality of life metrics, urged to consider palliative consult. She will let me know For insomnia, will resume olanzapine. Hospital discharge follow-up (Primary) - DISCH MED RECON CUR MED LIS Other insomnia - DISCH MED RECON CUR MED LIS - OLANZapine 2.5 MG Oral Tablet (zyPREXA); Take 2 Tablets by mouth at bedtime. Hip pain, right - Lidocaine 5 % External Patch (Lidoderm); Place 1 Patch over 12 hours topically on the skin daily. Pain from bone metastases (HCC) - Lidocaine 5 % External Patch (Lidoderm); Place 1 Patch over 12 hours topically on the skin daily. If needed, prefers contact by: Ok to leave message on phone: SUBJECTIVE: Nursing Notes: Verona Ortiz LPN 03/19/23 [id number] Signed The patient has been properly identified by confirmation of name and date of . Chief Complaint Patient presents with Hospital Follow-Up Low fiber and residue diet and would like to discuss, is concerned with getting in enough veggies; loazipine would like to discuss for renewal HPI: Anel Whitfield is a 52 year old female. Here for recheck. See a/p for hospitalization details Would also like to resume olanzapine for insomnia - [place]. Reviewed sources 1- Patient Active Problem List Diagnosis Code Ureteral stricture, right N13.5 Malignant neoplasm of cervix ([facility]) C53.9 Gastritis K29.70 Overactive bladder N32.81 Acute pyelonephritis N10 Premature ovarian failure E28.39 Deep vein thrombosis (DVT) ([facility]) I82.409 Peripheral arterial occlusive disease ([facility]) I77.9 Osteopenia M85.80 Leg edema, right R60.0 Hyperlipidemia E78.5 Hypercalcemia E83.52 History of radiation therapy Z92.3 Encounter for follow-up surveillance of cervical cancer Z08, Z85.41 History of infertility, female Z87.42 History of antineoplastic chemotherapy Z92.21 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 30 Tab 11 Melatonin 3 MG Oral Tablet TAKE 1 TABLET BY MOUTH EVERYDAY AT BEDTIME Ondansetron HCl 4 MG Oral Tablet (Zofran) take 1 tablet by mouth every 4 hours Enoxaparin Sodium 150 MG/ML Subcutaneous Solution (Lovenox) Inject 128 mg under the skin every 12 hours. Cilostazol 50 MG Oral Tablet (Pletal) Take 1 Tablet by mouth in the morning and 1 Tablet before bedtime. Gabapentin 100 MG Oral Capsule (Neurontin) Take 2 Capsules by mouth in the morning and 2 Capsules before bedtime. DULoxetine HCl 30 MG Oral Capsule Delayed Release Particles Take 1 Capsule by mouth in the morning. fentaNYL 12 MCG/HR Transdermal Patch [address] 1 Patch topically on the skin every 3 days. Tyrvaya 0.03 MG/ACT Nasal Solution (Varenicline Tartrate) Administer into nostril 2 times a day. Uses for dry eyes predniSONE 20 MG Oral Tablet (Deltasone) TAKE 2 TABLETS BY MOUTH DAILY FOR 30 DAYS Potassium Chloride ER 20 MEQ Oral Tablet Extended Release Take 1 Tablet by mouth in the morning. Magnesium Oxide -Mg Supplement 400 (240 Mg) MG Oral Tablet (Mag-Ox) TAKE 1 TABLET BY MOUTH TWICE A DAY FOR 10 DAYS droNABinol 2.5 MG Oral Capsule (Marinol) Take 1 Capsule by mouth in the morning and 1 Capsule before bedtime. Senna 8.6 MG Oral Capsule Take 17.2 mg by mouth. cycloSPORINE 0.05 % Ophthalmic Emulsion (Restasis) 1 Drop. OLANZapine 2.5 MG Oral Tablet (zyPREXA) Take 2 Tablets by mouth at bedtime. 60 Tablet 5 Lidocaine 5 % External Patch (Lidoderm) Place 1 Patch over 12 hours topically on the skin daily. 30Patch 5 Desonide 0.05 % External Cream Apply to affected areas (on face) twice daily (Patient not taking: Reported on 12/05/2022) hydrOXYzine HCl 10 MG Oral Tablet (Atarax) Take 10 mg by mouth. (Patient not taking: Reported on 12/05/2022) Mupirocin 2 % External Ointment (Bactroban) Apply topically to affected area 2 times a day. Apply to the nose twice daily (Patient not taking: Reported on 12/05/2022) 22 g 0 Fluocinonide 0.05 % External Solution Apply topically to affected area . (Patient not taking: Reported on 12/05/2022) Fluticasone Propionate 50 MCG/ACT Nasal Suspension Administer into each nostril 2 Sprays in the morning. (Patient not taking: Reported on 12/05/2022) 1 Each 0 Ventolin HFA 108 (90 Base) MCG/ACT Inhalation Aerosol Solution Inhale by mouth 2 Puffs every 4 hours as needed for Wheezing or Dyspnea. (Patient not taking: Reported on 12/05/2022) 1 g 1 prednisoLONE Acetate 1 % Ophthalmic Suspension 1 Drop in the morning AND 1 Drop at noon AND 1 Drop before bedtime. (Patient not taking: Reported on 12/05/2022) Alphagan P 0.1 % Ophthalmic Solution (Brimonidine Tartrate) Instill into eye 1 Drop 3 times a day .(Patient not taking: Reported on 12/05/2022) Melatonin 1 MG Oral Tablet Take 3 Tablets by mouth at bedtime. (Patient not taking: Reported on 03/19/2023) Polyethylene Glycol 3350 17 GM Oral Packet (Miralax) Take by mouth. Dicyclomine HCl 10 MG Oral Capsule (Bentyl) Take 1 Capsule by mouth. No current facility-administered medications for this visit. OBJECTIVE: BP 112/62 | Pulse 111 | Temp 35.8 C (96.4 F) | Wt 59.9 kg (132 lb 1.6 oz) | SpO2 95% | BMI 22.67 kg/m | BSA 1.64 m Vitals reviewed and is normotensive / afebrile / and not tachycardic General: No acute distress. Cachexia. Neuro: Alert Pleasant & interactive. Respiratory: Good inspiratory effort, no labored breathing. HEENT: Conjunctivae appear clear. No swelling noted face or lips. Skin: No rash visible on exposed skin areas, normal coloration & appears dry. Psych: Normal affect. Fluent speech. I spent a total of 40-54 minutes (exact time 40 mins) on the date of service in preparation, delivery, and documentation of the care provided to Anel Whitfield excluding any time spent in the performance of separately billed services. Kristyn Brown MD [address] [address] There are no Patient Instructions on file for this visit. documented in this encounter Nursing Notes * Verona Ortiz LPN - 03/19/2023 2:06 PM EST The patient has been properly identified by confirmation of name and date of . Chief Complaint Patient presents with Hospital Follow-Up Low fiber and residue diet and would like to discuss, is concerned with getting in enough veggies; loazipine would like to discuss for renewal documented in this encounter Plan of Treatment [...] EKG FOR HTN 2021 COVID-19 Vaccine ( - 2022- season) 2022 07/11/2021, 11/26/2020, 06/03/2020, Additional history [...] Not on filedocumented as of this encounter Visit Diagnoses Diagnosis Hospital discharge follow-up- Primary Other follow-up examination Other insomnia Hip pain, right Pain in joint, pelvic region and thigh Pain from bone metastases (HCC) documented in this encounter Advance Directives Latest [...] and were consensually agreed upon. Care Teams Nuclear Control Room Operator Relationship Specialty Start Date End Date Kristyn Brown MD [address] [facility] [place] [address] PCP - General Family Medicine 08/08/21 documented as of this encounter"
--- OUTSIDE RECORDS SUMMARY | 2023-03-27 22:20 | External Medical Summary | Summary of Care ---
Author Name Unknown Organization [facility] Address [address] [place] [address] Phone [phone] Care Team Providers Care Supervisor [employer] Name Role Phone Kristyn Brown MD Primary Care Provid er Encounter Details Date Type Department Care Team (Late st Contact Info) Description 11/29/2022 Telephone Access Center, [place] [facility] [address] [facility] *DO NOT REMOVE THIS DEPARTMENT* [place] [address] Request, External Referral Allergies Active Allergy Reactions Criticality Noted Date Comments Cephalexin Rash Low 01/05/2021 documented as of this encounter (statuses as of 02/28/2023) Medications Medication Sig Dispensed Refills Start Date [...] Tablets by mouth at bedtime. 0 Active documented as of this encounter (statuses as of 02/28/2023) Active Problems Problem Noted Date Diagnosed Date [...] x in 2017) History of antineoplastic chemotherapy 7 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 Leg edema, right 07/20/2016 History of radiation therapy 07/20/2016 History of infertility, female 07/20/2016 Malignant neoplasm of cervix 04/02/2013 documented as of this encounter (statuses as of 02/28/2023) Immunizations Name Administration Dates Next Due COVID-19 mRNA, LNP-s, No Pre serve, 2-Dose Series ([employer]) 06/03/2020,05/11/2020 Pneumococcal Polysaccharide PPV23 (Pneumovax) Seasonal Influenza [...] and were consensually agreed upon. Care Teams Supervisor [employer] Relationship Specialty Start Date End Date Kristyn Brown MD [address] [place] [address] PCP - General Family Medicine 08/08/21 documented as of this encounter
[2023-03-27] MEDS ORDERED: MoRPHine SULFATE 4 MG/ML 1 ML CARP\\VIAL IV STA (22:54)
[2023-03-27] MEDS ORDERED: ONDANSETRON INJ 2 MG/ML 2 ML VIAL IV STA (22:54)
[2023-03-27 23:05] LABS: Basophils # (auto) 0.03 K/uL (0.00-0.20); Basophils % (auto) 0.3 %; Eosinophils # (auto) 0.05 K/uL (0.00-0.50); Eosinophils % (auto) 0.5 %; Hematocrit (blood only) 36.9 % (37.0-47.0); Hemoglobin 11.4 g/dl (12.0-16.0); Immature Granulocytes # (auto) 0.34 K/uL (0.01-0.20); Immature Granulocytes % (auto) 3.3 %; Lymphocytes # (auto) 0.84 K/uL (1.20-3.40); Lymphocytes % (auto) 8.2 %; Mean Corpuscular Hemoglobin 22.4 pg (25.0-34.0); Mean Corpuscular Hgb Conc 30.9 g/dL (32.0-36.0); Mean Corpuscular Volume 72.4 fL (80.0-100.0); Mean Platelet Volume 8.4 fL (9.4-12.4); Monocytes # (auto) 1.03 K/uL (0.11-0.59); Neutrophils # (auto) 7.98 K/uL (1.40-6.50); Neutrophils % (auto) 77.7 %; Nucleated RBC # (auto) 0.18 K/uL (0.00-0.12); Nucleated RBC % (auto) 1.8 %; Platelet Count 404 K/uL (130-400); RDW Coefficient of Variation 22.5 % (11.5-14.5); RDW Standard Deviation 52.6 fL (36.4-46.3); White Blood Count 10.27 K/ul (4.8-10.8)
[2023-03-27 23:23] LABS: Albumin Globulin Ratio 1.1 (0.9-2); Albumin Level 4.1 gm/dl (3.4-5.0); BUN Creatinine Ratio 39.7 (10-20); Bilirubin,Total 0.5 mg/dl (0.2-1.0); Calcium 10.4 mg/dl (8.6-10.3); Est GFR (African American) 122.8 ml/min; Globulin 3.8 gm/dl (2.5-4.0); Potassium 3.8 mmol/L (3.5-5.1); Total Protein 7.9 gm/dl (6.0-8.3)
[2023-03-27 23:31] LABS: Anisocytosis Present; Ovalocytes 1+; Polychromasia 1+; Tear Drop Cells 1+
[2023-03-28] MEDS ORDERED: OPTIRAY 320 500ml IV ONE (00:05)
--- NOTE | 2023-03-28 00:16 | Emergency Department Note ---
Impression & Plan SBO (small bowel obstruction), Abdominal pain, Pneumonia ED Provider Note HISTORY OF PRESENT ILLNESS: Patient is a 52-year-old female presenting with abdominal pain and vomiting. Patient reports that she been doing well up until today when she started having generalized abdominal pain and multiple episodes of vomiting. She has a history of stage III metastatic cervical cancer. She is currently receiving chemotherapy. Reports that she feels like her abdominal pain is similar to when she had an ileus and bowel obstruction and was admitted for 10 days. She denies any fevers. Denies any history of abdominal surgeries other than a hysterectomy. Denies any chest pain or shortness of breath. Reports her pain is 11 out of 10. ROS: as above PHYSICAL EXAM: Constitutional: Patient appears in no acute distress. HENT: Head: Normocephalic and atraumatic. Eyes: EOMI, PERRL Mouth/Throat: Mucous membranes moist. Neck: Trachea midline. Neck supple. Cardiovascular: Tachycardic with regular rhythm. No murmurs, rubs or gallops. Intact distal pulses. Pulmonary/Chest: No respiratory distress. Breath sounds clear and equal bilaterally. No wheezes or rales. Abdominal: Abdomen soft, no tenderness, rebound or guarding. Generalized abdominal tenderness to palpation Musculoskeletal: No edema, tenderness or deformity noted. Skin: Warm and dry. No rash, erythema, pallor or cyanosis Psychiatric: Appropriate mood and affect for situation. Neurological: Alert and keenly responsive. CN II-XII grossly intact, moving all extremities equally and fully. MDM: - Vitals signs showed tachycardia. - History obtained via patient. Patient presents with generalized abdominal pain and vomiting. Patient reports that she started having generalized abdominal pain earlier today and had multiple episodes of vomiting. She has metastatic cervical cancer. She is currently receiving chemotherapy. Reports that her abdominal pain feels like a small bowel obstruction she had last month. Denies any fevers. Denies any history of abdominal surgeries. Denies any chest pain or shortness of breath - Chronic conditions affecting care: Metastatic cervical cancer - Differential diagnoses include, but are not limited to: Small bowel obstruction; appendicitis; cholecystitis; viral syndrome; electrolyte abnormality - Order placed for continuous cardiac monitoring. At this time, monitor showed rate of 110 bpm with normal status rhythm, per my interpretation. - External medical records reviewed. Discharge summary dated 02/24/2023 was reviewed. Patient had been admitted at that time for nausea, vomiting and abdominal pain. She was found to have a bowel obstruction. Patient was seen by GI during her admission and they note that her obstruction may be likely an ileus and related to her cervical cancer - Laboratory workup interpreted by myself showed normal sinus rhythm; slightly elevated anion gap (14); normal lipase - CT abdomen/pelvis with IV contrast showed pneumonia with a small bowel obstruction per radiology. - Patient initially given 4 mg of IV Zofran and 4 mg of IV morphine on arrival to the ER for pain control and nausea control. On reassessment, she still complaining of pain. Given 50 mcg of IV fentanyl and additional 4 mg of morphine for further nausea - On reassessment, patient reports her pain is returning. She was given an additional 4 mg of IV Zofran and 1 L normal saline. IV Zosyn ordered for pneumonia coverage - Discussion was had with respiratory care specialist about patient's case and need for admission - Hospitalist, Dr. Cardenas, consulted for admission - Patient admitted to [facility] for further evaluation and management. ASSESSMENT AND PLAN: Diagnosis: abdominal pain; small bowel obstruction; pneumonia Plan: admit Past Med/Surg History Medical History Chronic deep vein thrombosis (DVT) Primary cervical cancer with metastasis to other site Surgical History History of vascular surgery history bilateral lower extremity thrombectomy and stenting History of appendectomy History of hysterectomy Family History Other No significant family history Social History Smoking Status: Never smoker Hx Alcohol Use: No Hx Substance Use: No Preferred Language: Mongolian Communication Ability: Effective Current Living Situation: Spouse Feels Safe at Home: Yes Assistive Devices: Cane Allergies Allergies Allergy/AdvReac Type Severity Reaction Status Date / Time No Known Allergies Allergy Unverified 11/11/17 15:14 Home Meds Home Medications Medication Instructions Recorded Confirmed cilostazol 50 mg tablet 50 mg PO BID 02/16/23 02/16/23 cyclosporine 0.05 % eye drops in a 1 drp OPB BID 02/16/23 02/16/23 dropperette (Restasis) dicyclomine 10 mg capsule 10 mg PO TID 02/16/23 02/16/23 duloxetine 30 mg capsule,delayed 30 mg PO DAILY 02/16/23 02/16/23 release enoxaparin 100 mg/mL subcutaneous 100 mg subcut BID 02/16/23 02/16/23 syringe fentanyl 12 mcg/hr transdermal 12 mcg transdermal Q72H 02/16/23 02/16/23 patch gabapentin 100 mg capsule 200 mg PO BID 02/16/23 02/16/23 hydromorphone 2 mg tablet 2 mg PO Q4H PRN Pain 02/16/23 02/16/23 melatonin 3 mg tablet 3 mg PO HS 02/16/23 02/16/23 olanzapine 2.5 mg tablet 2.5 mg PO HS 02/16/23 02/16/23 oxybutynin chloride 10 mg 10 mg PO PM 02/16/23 02/16/23 tablet,extended release 24 hr polyethylene glycol 3350 17 gram 17 g PO DAILY 02/16/23 02/16/23 oral powder packet (Miralax) varenicline 0.03 mg/spray nasal 1 spray intranasal BID 02/16/23 02/16/23 spray (Tyrvaya) Previous Rx's Medication Instructions Recorded potassium chloride 20 mEq 20 meq PO DAILY #7 tabs 02/24/23 tablet,extended release Results & Data (ED) Vital Signs Vital Signs - 24 hr 03/27/23 22:22 03/27/23 22:26 03/27/23 22:56 Temperature 36.4 C L Temperature Source Oral Pulse Rate 120 H 121 H 119 H Pulse Rate [Apical] Respiratory Rate 28 H Respiratory Effort / Characteristics Respiratory Depth Respiratory Pattern Blood Pressure 122/99 Blood Pressure [Right Arm] Blood Pressure Mean 106 Blood Pressure Mean [Right Arm] Pulse Oximetry 93 92 Oxygen Delivery Method Room Air Room Air Oxygen Flow Rate Sepsis Recent Fever Within 48 Hours No Sepsis New/Unexplained Change in Mental Status No Sepsis Action Taken by Nursing No Action Required 03/28/23 00:13 03/28/23 00:30 03/28/23 00:46 Temperature Temperature Source Pulse Rate Pulse Rate [Apical] 117 H 122 H Respiratory Rate 24 19 Respiratory Effort / Characteristics Non-Labored Spontaneous Non-Labored Spontaneous Respiratory Depth Normal Normal Respiratory Pattern Regular Regular Blood Pressure Blood Pressure [Right Arm] 122/99 113/87 Blood Pressure Mean Blood Pressure Mean [Right Arm] 106 95 Pulse Oximetry 95 88 L 95 Oxygen Delivery Method Room Air Room Air Nasal Cannula Oxygen Flow Rate 2 Sepsis Recent Fever Within 48 Hours Sepsis New/Unexplained Change in Mental Status Sepsis Action Taken by Nursing Laboratory Data 03/27/23 22:52 03/27/23 22:52 Lab Results 03/27/23 Range/Units 22:52 WBC 10.27 (4.8-10.8) K/ul RBC 5.10 (4.20-5.40) M/uL Hgb 11.4 L (12.0-16.0) g/dl Hct 36.9 L (37.0-47.0) % MCV 72.4 L (80.0-100.0) fL MCH 22.4 L (25.0-34.0) pg MCHC 30.9 L (32.0-36.0) g/dL RDW Std Deviation 52.6 H (36.4-46.3) fL RDW Coeff of Luis 22.5 H (11.5-14.5) % Plt Count 404 H (130-400) K/uL MPV 8.4 L (9.4-12.4) fL Immature Gran % (Auto) 3.3 % Neut % (Auto) 77.7 % Lymph % (Auto) 8.2 % [place] % (Auto) 10.0 % Eos % (Auto) 0.5 % Baso % (Auto) 0.3 % Neut # (Auto) 7.98 H (1.40-6.50) K/uL Lymph # (Auto) 0.84 L (1.20-3.40) K/uL [place] # (Auto) 1.03 H (0.11-0.59) K/uL Eos # (Auto) 0.05 (0.00-0.50) K/uL Baso # (Auto) 0.03 (0.00-0.20) K/uL Immature Gran # (Auto) 0.34 H (0.01-0.20) K/uL Absolute Nucleated RBC 0.18 H (0.00-0.12) K/uL Nucleated RBC % (auto) 1.8 % Polychromasia 1+ Anisocytosis Present Tear Drop Cells 1+ Ovalocytes 1+ Sodium 136 (136-145) mmol/L Potassium 3.8 (3.5-5.1) mmol/L Chloride 95 L (98-107) mmol/L Carbon Dioxide 27 (21-32) mmol/L Anion Gap 14 H (3-11) BUN 23 (6-23) mg/dl Creatinine 0.58 L (0.6-1.2) mg/dl Est Cr Clr Drug Dosing 98.0 ml/min Est GFR ( Amer) 122.8 ml/min Est GFR (Non-Af Amer) 106.0 ml/min BUN/Creatinine Ratio 39.7 H (10-20) Glucose 137 H (70-99(Fasting)) mg/dl Calcium 10.4 H (8.6-10.3) mg/dl Total Bilirubin 0.5 (0.2-1.0) mg/dl AST 13 (13-39) U/L ALT 44 (7-52) U/L Alkaline Phosphatase 107 H (34-104) U/L Total Protein 7.9 (6.0-8.3) gm/dl Albumin 4.1 (3.4-5.0) gm/dl Globulin 3.8 (2.5-4.0) gm/dl Albumin/Globulin Ratio 1.1 (0.9-2) Lipase 11 (11-82) U/L Administered Medications Discontinued Medications Fentanyl Citrate (Fentanyl Citrate Pf 100 Mcg/2 Ml Vial) 50 mcg IV NOW STA Stop: 03/28/23 00:38 Last Admin: 03/28/23 00:43 Dose: 50 mcg Documented By: MARTHA Ioversol (Optiray 320 500ml) 100 ml IV ONCE ONE Stop: 03/28/23 00:06 Last Admin: 03/28/23 00:06 Dose: 90 ml Documented By: MONI Morphine Sulfate (Morphine Sulfate 4 Mg/Ml 1 Ml Carp\Vial) 4 mg IV NOW STA Stop: 03/27/23 22:55 Last Admin: 03/27/23 23:04 Dose: 4 mg Documented By: MARTHA Ondansetron HCl (Ondansetron Inj 2 Mg/Ml 2 Ml Vial) 4 mg IV NOW STA Stop: 03/27/23 22:55 Last Admin: 03/27/23 23:01 Dose: 4 mg Documented By: MARTHA Ondansetron HCl (Ondansetron Inj 2 Mg/Ml 2 Ml Vial) 4 mg IV NOW STA Stop: 03/28/23 01:17 Last Admin: 03/28/23 01:20 Dose: 4 mg Documented By: [employer] Data Radiologist's Impression: Abdomen/Pelvis CT 03/27/23 23:05 Exam(s): CT ABDOMEN + PELVIS With Contrast IV Amt: 90 ML OPTIRAY 320 EXAM: CT Abdomen and Pelvis With Intravenous Contrast CLINICAL HISTORY: Reason for exam: abdominal pain; vomiting. TECHNIQUE: Axial computed tomography images of the abdomen and pelvis with intravenous contrast. CTDI is 10.84 mGy and DLP is 552.49 mGy-cm. Automated exposure control was utilized for the study. A dose lowering technique was utilized adhering to the principles of ALARA. CONTRAST: Patient received 90 ML OPTIRAY 320 of IV contrast COMPARISON: No relevant prior studies available. FINDINGS: Lung bases: Innumerable cavitating bilateral pulmonary lesions. Multifocal pneumonia concerning for septic emboli. ABDOMEN: Liver: Unremarkable. No mass. Gallbladder and bile ducts: Unremarkable. No calcified stones. No ductal dilation. Pancreas: Unremarkable. No mass. No ductal dilation. Spleen: Unremarkable. No splenomegaly. Adrenals: Unremarkable. No mass. Kidneys and ureters: Unremarkable. No solid mass. No hydronephrosis. Stomach and bowel: Marked small bowel obstruction. High-grade small bowel obstruction. No mucosal thickening. PELVIS: Appendix: No findings to suggest acute appendicitis. Bladder: Unremarkable. No mass. Reproductive: Unremarkable as visualized. ABDOMEN and PELVIS: Intraperitoneal space: Unremarkable. No free air. No significant fluid collection. Bones/joints: No acute fracture. No dislocation. Soft tissues: Unremarkable. Vasculature: See above. Lymph nodes: Unremarkable. No enlarged lymph nodes. IMPRESSION: Pneumonia with small bowel obstruction Electronically signed by: Chadd Francois MD 03/28/23 01:29 AM Discharge Plan Visit Data Chief Complaint: Abdominal Pain Stated Complaint: Abdominal Pain, N/V, Cervical Cancer ED Provider: Camilla Calzada Discharge Problem: SBO (small bowel obstruction), Abdominal pain, Pneumonia Forms Stand Alone Forms: My [facility] [employer] Prescriptions Prescriptions: No Action polyethylene glycol 3350 [Miralax] 17 gram Powder In Packet 17 g PO DAILY oxybutynin chloride 10 mg tablet extended release 24hr 10 mg PO PM cilostazol 50 mg tablet 50 mg PO BID melatonin 3 mg Tablet 3 mg PO HS olanzapine 2.5 mg tablet 2.5 mg PO HS hydromorphone 2 mg tablet 2 mg PO Q4H PRN (Reason: Pain) gabapentin 100 mg capsule 200 mg PO BID enoxaparin 100 mg/mL syringe 100 mg subcut BID cyclosporine [Restasis] 0.05 % dropperette 1 drp OPB BID duloxetine 30 mg capsule,delayed release(DR/EC) 30 mg PO DAILY fentanyl 12 mcg/hr patch 72 hour 12 mcg transdermal Q72H Tyrvaya 0.03 mg/spray spray, metered, non-aerosol 1 spray INTRANASAL BID dicyclomine 10 mg capsule 10 mg PO TID potassium chloride 20 mEq tablet extended release 20 meq PO DAILY Qty: 7 0RF Referrals Referrals: Kristyn Brown MD [Primary Care Provider] -
[2023-03-28] MEDS ORDERED: fentaNYL citrate PF 100 MCG/2 ML VIAL IV STA (00:37)
[2023-03-28] MEDS ORDERED: ONDANSETRON INJ 2 MG/ML 2 ML VIAL IV STA (01:16)
--- NOTE | 2023-03-28 01:30 | CT Scan Report ---
Exam(s): CT ABDOMEN + PELVIS With Contrast IV Amt: 90 ML OPTIRAY 320 EXAM: CT Abdomen and Pelvis With Intravenous Contrast CLINICAL HISTORY: Reason for exam: abdominal pain; vomiting. TECHNIQUE: Axial computed tomography images of the abdomen and pelvis with intravenous contrast. CTDI is 10.84 mGy and DLP is 552.49 mGy-cm. Automated exposure control was utilized for the study. A dose lowering technique was utilized adhering to the principles of ALARA. CONTRAST: Patient received 90 ML OPTIRAY 320 of IV contrast COMPARISON: No relevant prior studies available. FINDINGS: Lung bases: Innumerable cavitating bilateral pulmonary lesions. Multifocal pneumonia concerning for septic emboli. ABDOMEN: Liver: Unremarkable. No mass. Gallbladder and bile ducts: Unremarkable. No calcified stones. No ductal dilation. Pancreas: Unremarkable. No mass. No ductal dilation. Spleen: Unremarkable. No splenomegaly. Adrenals: Unremarkable. No mass. Kidneys and ureters: Unremarkable. No solid mass. No hydronephrosis. Stomach and bowel: Marked small bowel obstruction. High-grade small bowel obstruction. No mucosal thickening. PELVIS: Appendix: No findings to suggest acute appendicitis. Bladder: Unremarkable. No mass. Reproductive: Unremarkable as visualized. ABDOMEN and PELVIS: Intraperitoneal space: Unremarkable. No free air. No significant fluid collection. Bones/joints: No acute fracture. No dislocation. Soft tissues: Unremarkable. Vasculature: See above. Lymph nodes: Unremarkable. No enlarged lymph nodes. IMPRESSION: Pneumonia with small bowel obstruction Electronically signed by: Chadd Francois MD 03/28/23 01:29 AM
[2023-03-28] MEDS ORDERED: PIPERACILLIN/TAZOBACTAM 4.5 GM/100 ML BAG IV ONE (01:32)
[2023-03-28] MEDS ORDERED: MoRPHine SULFATE 4 MG/ML 1 ML CARP\\VIAL IV STA (02:00)
[2023-03-28] MEDS ORDERED: SODIUM CHLORIDE 0.9% 1,000 ML IV ONE (02:01)
--- NOTE | 2023-03-28 05:08 | History & Physical Report ---
Date of Service March 28, 2023 Assessment & Plan (1) SBO (small bowel obstruction): Plan: 52 y/o F with PMH stage IV cervical cancer with metastasis to lungs, pelvis & vertebrae, chronic thrombosis right femoral vein, BLE thrombectomy and stenting on chronic Lovenox and Pletal, right ureteral stricture, history of adjustment disorder with anxiety presents with abdominal pain and found to have small bowel obstruction. Patient was here in January with abdominal pain found to ileus and partial small bowel obstruction. Patient states she was advised to use low fiber diet and she is compliant with it. Today again she developed abdominal with nausea and vomiting ,pain is mostly located in the periumbilical region radiating to the back . Her bowels are moving ok. Last bowel movement was at around 7pm. Denies any fevers. No chest pain or shortness of breath. No headache. No cough. No sore throat. Hemodynamics are stable. Small bowel obstruction N.p.o. IV fluids IV pain meds. IV antiemetics as needed If worsening will place NG tube Surgery consult Stage IV cervical cancer with metastatic to lungs pelvis and vertebrae Currently on chemo Gemcitabine every two weeks.Last dose last sunday. Currently on Marinol to help reduce the use of Dilaudid. On fentanyl patch Questionable pneumonia Patient has lung nodules is on steroid prednisone Will follow CT chest and if any pneumonia will start on antibiotics Chronic DVT History of chronic DVT in right femoral vein. History of multiple lower extremity venous thrombectomy and stent procedures. Most recent seems to be in 2021 at [facility] [place] in [facility] . Left lower extremity lymphedema On Lovenox shots, Pletal DVT prophylaxis On Lovenox Disposition Medical floor Full code History of Present Illness Chief Complaint: Abdominal pain Primary Care Provider: Kristyn Brown MD 52 y/o F with PMH stage IV cervical cancer with metastasis to lungs, pelvis & vertebrae, chronic thrombosis right femoral vein, BLE thrombectomy and stenting on chronic Lovenox and Pletal, right ureteral stricture, history of adjustment disorder with anxiety presents with abdominal pain and found to have small bowel obstruction. Patient was here in January with abdominal pain found to ileus and partial small bowel obstruction. Patient states she was advised to use low fiber diet and she is compliant with it. Today again she developed abdominal with nausea and vomiting ,pain is mostly located in the periumbilical region radiating to the back . Her bowels are moving ok. Last bowel movement was at around 7pm. Denies any fevers. No chest pain or shortness of breath. No headache. No cough. No sore throat. Hemodynamics are stable. Past medical history. As mentioned above Past surgical history. Colonoscopy. Cystoscopy. Removal of intranasal lesion. History of bilateral lower extremity thrombectomy and stenting. History of appendectomy. History hysterectomy. Social history. No smoking. No alcohol use. No drug use. Family history. As per [facility] no known problems of father and mother Allergies Allergy/AdvReac Type Severity Reaction Status Date / Time cephalexin [From [employer]] Allergy Rash Verified 03/28/23 02:46 Home Medications Medication Instructions Recorded Confirmed Type cilostazol 50 mg tablet 50 mg PO BID 02/16/23 03/28/23 History cyclosporine 0.05 % eye drops in a 1 drp OPB BID 02/16/23 03/28/23 History dropperette (Restasis) dicyclomine 10 mg capsule 10 mg PO TID PRN abd pain 02/16/23 03/28/23 History enoxaparin 100 mg/mL subcutaneous 100 mg subcut BID 02/16/23 03/28/23 History syringe fentanyl 12 mcg/hr transdermal 12 mcg transdermal Q72H 02/16/23 03/28/23 History patch gabapentin 100 mg capsule 200 mg PO BID 02/16/23 03/28/23 History melatonin 3 mg tablet 3 mg PO HS 02/16/23 03/28/23 History olanzapine 2.5 mg tablet 2.5 mg PO HS 02/16/23 03/28/23 History oxybutynin chloride 10 mg 10 mg PO PM 02/16/23 03/28/23 History tablet,extended release 24 hr polyethylene glycol 3350 17 gram 17 g PO DAILY 02/16/23 03/28/23 History oral powder packet (Miralax) varenicline 0.03 mg/spray nasal 1 spray intranasal BID 02/16/23 03/28/23 History spray (Tyrvaya) potassium chloride 20 mEq 20 meq PO DAILY #7 tabs 02/24/23 03/28/23 Rx tablet,extended release dronabinol 2.5 mg capsule 2.5 mg PO BID 03/28/23 03/28/23 History duloxetine 60 mg capsule,delayed 60 mg PO DAILY 03/28/23 03/28/23 History release magnesium oxide 400 mg PO DAILY 03/28/23 03/28/23 History prednisone 20 mg tablet 20 mg PO DAILY 03/28/23 03/28/23 History sennosides 8.6 mg tablet (senna) 8.6 mg PO DAILY PRN Constipation 03/28/23 03/28/23 History Past Med/Surg History Medical History Chronic deep vein thrombosis (DVT) Primary cervical cancer with metastasis to other site Surgical History History of vascular surgery history bilateral lower extremity thrombectomy and stenting History of appendectomy History of hysterectomy Family History Other No significant family history Social History Smoking Status: Never smoker Hx Alcohol Use: No Hx Substance Use: No Preferred Language: Khmer Communication Ability: Effective Bulb Inspector Required: No Beliefs That Will Affect Care: None Current Living Situation: Spouse Other Information That Helps Us Care for You: No Feels Safe at Home: Yes Safety Concerns: Feels Safe At This Time Assistive Devices: Cane Review of Systems Review of Systems: All systems reviewed & are unremarkable except as noted in HPI & below Physical Exam Physical Exam: General- Not in distress Head- atraumatic Eyes- PERRL. ENT- oropharynx clear Neck- supple, no JVD. Lungs- clear to auscultation no wheezing or crackles. Heart- regular rhythm; no murmur, no gallop. Abdomen- sluggish bowel sounds, diffuse tender mild distension Extremities- Lymphedema of left lower leg seen. no erythema seen. Neuro- alert, oriented x 3; PERRL, no facial palsy; no dysarthria; moves extremities. Results & Data Results & Data Vital Signs (Past 12 Hours) Vital Signs Temp Pulse Pulse Resp BP BP Pulse Ox 03/28/23 04:00 103 H 20 135/97 95 03/28/23 02:21 116 H 03/28/23 00:46 122 H 19 113/87 95 03/28/23 00:30 88 L 03/28/23 00:13 117 H 24 122/99 95 03/27/23 22:56 119 H 92 03/27/23 22:26 36.4 C L 121 H 28 H 122/99 93 03/27/23 22:22 120 H O2 Del Method O2 Flow Rate 03/28/23 04:00 Room Air 03/28/23 02:21 03/28/23 00:46 Nasal Cannula 2 03/28/23 00:30 Room Air 03/28/23 00:13 Room Air 03/27/23 22:56 Room Air 03/27/23 22:26 Room Air 03/27/23 22:22 Code Status & VTE Plan VTE Prophylaxis Plan VTE Prophylaxis will be ordered: Yes
[2023-03-28] MEDS ORDERED: ONDANSETRON INJ 2 MG/ML 2 ML VIAL IV PRN (05:51)
[2023-03-28] MEDS ORDERED: DICYCLOMINE HCL 10 MG CAP PO PRN (05:51)
[2023-03-28] MEDS ORDERED: SENNA 8.6 MG TAB PO PRN (05:51)
[2023-03-28] MEDS ORDERED: ARTIFICIAL TEARS OP PRN (06:00)
[2023-03-28] MEDS: HYDROmorphone INJ 0.5 MG/0.5 ML SYR IV PRN ×3 (06:04→16:57)
[2023-03-28] MEDS: D5W AND 1/2NSS 1,000 ML IV SCH ×2 (06:15→16:01)
--- NOTE | 2023-03-28 07:22 | Surgery Consultation ---
Date of Consultation March 28, 2023 Assessment & Plan (1) SBO (small bowel obstruction): Assessment: Patient is a 52 years old female who is approximate hour history's stage IV cervical cancer metastatic to lung, pelvic, and bone. Thrombosis of the right femoral vein. Presented to ED with a couple days history of abdominal pain with nausea and vomiting. The pain located the periumbilical area. Last bowel movement yesterday. Patient denies any fever or chills. No chest pain. Patient had a CT scan diagnosis small bowel obstruction. Plan: No emergency surgical indication now. Conservative treatment. N.p.o., IV fluid, NG tube, control pain, repeat labs and KUB tomorrow. Also I indicated patient may need a surgical treatment if patient symptoms getting worse, severe pain, fever, or increasing WBC. Patient understood. she agreed with the treatment plan. I answered all questions. will F/U History of Present Illness Reason for Consultation: SBO Requesting Physician: Dennys Cardenas MD Attending Physician: Jose G Geiger MD History of Present Illness CC: abdominal pain HPI: Patient is a 52 years old female who is approximate hour history's stage IV cervical cancer metastatic to lung, pelvic, and bone. Thrombosis of the right femoral vein. Presented to ED with a couple days history of abdominal pain with nausea and vomiting. The pain located the periumbilical area. Last bowel movement yesterday. Patient denies any fever or chills. No chest pain. Patient had a CT scan diagnosis small bowel obstruction. Allergies Allergy/AdvReac Type Severity Reaction Status Date / Time cephalexin [From Keflex] Allergy Rash Verified 03/28/23 02:46 Home Medications Medication Instructions Recorded Confirmed Type cilostazol 50 mg tablet 50 mg PO BID 02/16/23 03/28/23 History cyclosporine 0.05 % eye drops in a 1 drp OPB BID 02/16/23 03/28/23 History dropperette (Restasis) dicyclomine 10 mg capsule 10 mg PO TID PRN abd pain 02/16/23 03/28/23 History enoxaparin 100 mg/mL subcutaneous 100 mg subcut BID 02/16/23 03/28/23 History syringe fentanyl 12 mcg/hr transdermal 12 mcg transdermal Q72H 02/16/23 03/28/23 History patch gabapentin 100 mg capsule 200 mg PO BID 02/16/23 03/28/23 History melatonin 3 mg tablet 3 mg PO HS 02/16/23 03/28/23 History olanzapine 2.5 mg tablet 2.5 mg PO HS 02/16/23 03/28/23 History oxybutynin chloride 10 mg 10 mg PO PM 02/16/23 03/28/23 History tablet,extended release 24 hr polyethylene glycol 3350 17 gram 17 g PO DAILY 02/16/23 03/28/23 History oral powder packet (Miralax) varenicline 0.03 mg/spray nasal 1 spray intranasal BID 02/16/23 03/28/23 History spray (Tyrvaya) potassium chloride 20 mEq 20 meq PO DAILY #7 tabs 02/24/23 03/28/23 Rx tablet,extended release dronabinol 2.5 mg capsule 2.5 mg PO BID 03/28/23 03/28/23 History duloxetine 60 mg capsule,delayed 60 mg PO DAILY 03/28/23 03/28/23 History release magnesium oxide 400 mg PO DAILY 03/28/23 03/28/23 History prednisone 20 mg tablet 20 mg PO DAILY 03/28/23 03/28/23 History sennosides 8.6 mg tablet (senna) 8.6 mg PO DAILY PRN Constipation 03/28/2303/03 History Patient History Medical History Chronic deep vein thrombosis (DVT) Primary cervical cancer with metastasis to other site Surgical History History of vascular surgery history bilateral lower extremity thrombectomy and stenting History of appendectomy History of hysterectomy Family History Other No significant family history Social History Smoking Status: Never smoker Hx Alcohol Use: No Hx Substance Use: No Preferred Language: Czech Communication Ability: Effective Health Coach Required: No Beliefs That Will Affect Care: None Current Living Situation: Spouse Other Information That Helps Us Care for You: No Feels Safe at Home: Yes Safety Concerns: Feels Safe At This Time Assistive Devices: Cane Review of Systems Constitutional: as per Subjective / HPI Eyes: as per Subjective / HPI Respiratory: as per Subjective / HPI Cervical cancer metastatic to lung Cardiovascular: as per Subjective / HPI Gastrointestinal: as per Subjective / HPI Genitourinary: Hysterectomy Musculoskeletal: Cervical cancer metastatic to the spinal Neurologic: as per Subjective / HPI Psychiatric: as per Subjective / HPI Endocrine: as per Subjective / HPI Hematologic / Lymphatic: as per Subjective / HPI Physical Exam Constitutional: WD/WN, vitals as above Eyes: PERRL, conjunctivae normal, anicteric sclerae Neck: trachea midline, no thyromegaly Respiratory: normal respiratory effort, lungs clear to auscultation Cardiovascular: RRR, no murmur, no edema Gastrointestinal (Abdomen): soft, mild tenderness at periumbilical area, no rebound pain, no distend, BS + Musculoskeletal: no cyanosis or clubbing, extremities motor strength 5/5 Neurologic: patellar DTR's 2+ bilat, sensation intact Psychiatric: A+Ox3, euthymic affect Results & Data Vital Signs (Past 12 Hours) Vital Signs Temp Pulse Pulse Pulse Resp BP BP 03/28/23 06:10 03/28/23 06:10 36.8 C 122 H 16 141/94 H 03/28/23 04:00 103 H 20 135/97 03/28/23 02:21 116 H 03/28/23 00:46 122 H 19 113/87 03/28/23 00:30 03/28/23 00:13 117 H 24 122/99 03/27/23 22:56 119 H 03/27/23 22:26 36.4 C L 121 H 28 H 122/99 03/27/23 22:22 120 H Pulse Ox O2 Del Method O2 Flow Rate 03/28/23 06:10 Room Air 03/28/23 06:10 96 Room Air 03/28/23 04:00 95 Room Air 03/28/23 02:21 03/28/23 00:46 95 Nasal Cannula 2 03/28/23 00:30 88 L Room Air 03/28/23 00:13 95 Room Air 03/27/23 22:56 92 Room Air 03/27/23 22:26 93 Room Air 03/27/23 22:22 Laboratory Results Lab Results 03/27/23 03/28/23 03/28/23 Range/Units 22:52 07:33 09:00 WBC 10.27 7.27 (4.8-10.8) K/ul RBC 5.10 4.69 (4.20-5.40) M/uL Hgb 11.4 L 10.3 L (12.0-16.0) g/dl Hct 36.9 L 35.5 L (37.0-47.0) % MCV 72.4 L 75.7 L (80.0-100.0) fL MCH 22.4 L 22.0 L (25.0-34.0) pg MCHC 30.9 L 29.0 L (32.0-36.0) g/dL RDW Std Deviation 52.6 H 56.5 H (36.4-46.3) fL RDW Coeff of Luis 22.5 H 22.5 H (11.5-14.5) % Plt Count 404 H 330 (130-400) K/uL MPV 8.4 L 8.9 L (9.4-12.4) fL Immature Gran % (Auto) 3.3 1.8 % Neut % (Auto) 77.7 80.7 % Lymph % (Auto) 8.2 6.6 % [place] % (Auto) 10.0 9.9 % Eos % (Auto) 0.5 0.7 % Baso % (Auto) 0.3 0.3 % Neut # (Auto) 7.98 H 5.87 (1.40-6.50) K/uL Lymph # (Auto) 0.84 L 0.48 L (1.20-3.40) K/uL [place] # (Auto) 1.03 H 0.72 H (0.11-0.59) K/uL Eos # (Auto) 0.05 0.05 (0.00-0.50) K/uL Baso # (Auto) 0.03 0.02 (0.00-0.20) K/uL Immature Gran # (Auto) 0.34 H 0.13 (0.01-0.20) K/uL Absolute Nucleated RBC 0.18 H 0.03 (0.00-0.12) K/uL Nucleated RBC % (auto) 1.8 0.4 % Polychromasia 1+ 1+ Anisocytosis Present Present Tear Drop Cells 1+ Ovalocytes 1+ 1+ Sodium 136 137 (136-145) mmol/L Potassium 3.8 3.8 (3.5-5.1) mmol/L Chloride 95 L 98 (98-107) mmol/L Carbon Dioxide 27 29 (21-32) mmol/L Anion Gap 14 H 10 (3-11) BUN 23 20 (6-23) mg/dl Creatinine 0.58 L 0.61 (0.6-1.2) mg/dl Est Cr Clr Drug Dosing 98.0 93.2 ml/min Est GFR ( Amer) 122.8 120.8 ml/min Est GFR (Non-Af Amer) 106.0 104.2 ml/min BUN/Creatinine Ratio 39.7 H 32.8 H (10-20) Glucose 137 H 131 H (70-99(Fasting)) mg/dl Calcium 10.4 H 9.3 (8.6-10.3) mg/dl Magnesium 1.8 (1.7-2.4) mg/dl Total Bilirubin 0.5 (0.2-1.0) mg/dl AST 13 (13-39) U/L ALT 44 (7-52) U/L Alkaline Phosphatase 107 H (34-104) U/L Total Protein 7.9 (6.0-8.3) gm/dl Albumin 4.1 (3.4-5.0) gm/dl Globulin 3.8 (2.5-4.0) gm/dl Albumin/Globulin Ratio 1.1 (0.9-2) Lipase 11 (11-82) U/L Procalcitonin (0-0.5) ng/ml Urine Color Yellow Urine Appearance Clear (Clear) Urine pH 7.0 (4.5-7.5) Ur Specific [place] > 1.045 H (1.000-1.030) Urine Protein 1+ H (Negative) Urine Glucose (UA) Negative (Negative) Urine Ketones Trace H (Negative) Urine Blood Negative (Negative) Urine Nitrite Positive A (Negative) Urine Bilirubin Negative (Negative) Urine Urobilinogen Negative (Negative) Ur Leukocyte Esterase 1+ H (Negative) Urine WBC (Auto) >30 H (0-5) /hpf Urine RBC (Auto) 0-4 (0-4) /hpf U Hyaline Cast (Auto) 10-30 H (0-5) /lpf U Epithel Cells (Auto) 10-20 H (0-5) /lpf Urine Bacteria (Auto) 4+ H (Negative) 03/28/23 Range/Units 09:31 WBC (4.8-10.8) K/ul RBC (4.20-5.40) M/uL Hgb (12.0-16.0) g/dl Hct (37.0-47.0) % MCV (80.0-100.0) fL MCH (25.0-34.0) pg MCHC (32.0-36.0) g/dL RDW Std Deviation (36.4-46.3) fL RDW Coeff of Luis (11.5-14.5) % Plt Count (130-400) K/uL MPV (9.4-12.4) fL Immature Gran % (Auto) % Neut % (Auto) % Lymph % (Auto) % [place] % (Auto) % Eos % (Auto) % Baso % (Auto) % Neut # (Auto) (1.40-6.50) K/uL Lymph # (Auto) (1.20-3.40) K/uL [place] # (Auto) (0.11-0.59) K/uL Eos # (Auto) (0.00-0.50) K/uL Baso # (Auto) (0.00-0.20) K/uL Immature Gran # (Auto) (0.01-0.20) K/uL Absolute Nucleated RBC (0.00-0.12) K/uL Nucleated RBC % (auto) % Polychromasia Anisocytosis Tear Drop Cells Ovalocytes Sodium (136-145) mmol/L Potassium (3.5-5.1) mmol/L Chloride (98-107) mmol/L Carbon Dioxide (21-32) mmol/L Anion Gap (3-11) BUN (6-23) mg/dl Creatinine (0.6-1.2) mg/dl Est Cr Clr Drug Dosing ml/min Est GFR ( Amer) ml/min Est GFR (Non-Af Amer) ml/min BUN/Creatinine Ratio (10-20) Glucose (70-99(Fasting)) mg/dl Calcium (8.6-10.3) mg/dl Magnesium (1.7-2.4) mg/dl Total Bilirubin (0.2-1.0) mg/dl AST (13-39) U/L ALT (7-52) U/L Alkaline Phosphatase (34-104) U/L Total Protein (6.0-8.3) gm/dl Albumin (3.4-5.0) gm/dl Globulin (2.5-4.0) gm/dl Albumin/Globulin Ratio (0.9-2) Lipase (11-82) U/L Procalcitonin 0.15 (0-0.5) ng/ml Urine Color Urine Appearance (Clear) Urine pH (4.5-7.5) Ur Specific [place] (1.000-1.030) Urine Protein (Negative) Urine Glucose (UA) (Negative) Urine Ketones (Negative) Urine Blood (Negative) Urine Nitrite (Negative) Urine Bilirubin (Negative) Urine Urobilinogen (Negative) Ur Leukocyte Esterase (Negative) Urine WBC (Auto) (0-5) /hpf Urine RBC (Auto) (0-4) /hpf U Hyaline Cast (Auto) (0-5) /lpf U Epithel Cells (Auto) (0-5) /lpf Urine Bacteria (Auto) (Negative) Diagnostic Findings Exam(s): CT ABDOMEN + PELVIS With Contrast IV Amt: 90 ML OPTIRAY 320 EXAM: CT Abdomen and Pelvis With Intravenous Contrast CLINICAL HISTORY: Reason for exam: abdominal pain; vomiting. TECHNIQUE: Axial computed tomography images of the abdomen and pelvis with intravenous contrast. CTDI is 10.84 mGy and DLP is 552.49 mGy-cm. Automated exposure control was utilized for the study. A dose lowering technique was utilized adhering to the principles of ALARA. CONTRAST: Patient received 90 ML OPTIRAY 320 of IV contrast COMPARISON: No relevant prior studies available. FINDINGS: Lung bases: Innumerable cavitating bilateral pulmonary lesions. Multifocal pneumonia concerning for septic emboli. ABDOMEN: Liver: Unremarkable. No mass. Gallbladder and bile ducts: Unremarkable. No calcified stones. No ductal dilation. Pancreas: Unremarkable. No mass. No ductal dilation. Spleen: Unremarkable. No splenomegaly. Adrenals: Unremarkable. No mass. Kidneys and ureters: Unremarkable. No solid mass. No hydronephrosis. Stomach and bowel: Marked small bowel obstruction. High-grade small bowel obstruction. No mucosal thickening. PELVIS: Appendix: No findings to suggest acute appendicitis. Bladder: Unremarkable. No mass. Reproductive: Unremarkable as visualized. ABDOMEN and PELVIS: Intraperitoneal space: Unremarkable. No free air. No significant fluid collection. Bones/joints: No acute fracture. No dislocation. Soft tissues: Unremarkable. Vasculature: See above. Lymph nodes: Unremarkable. No enlarged lymph nodes. IMPRESSION: Pneumonia with small bowel obstruction Electronically signed by: Chadd Francois MD 03/28/23 01:29 AM Dictated: 03/28/23128 Transcribed: 03/28/23128
[2023-03-28 07:54] LABS: Appearance Urine Clear (Clear); Bacteria Urine Automated 4+ (Negative); Bilirubin Urine Negative (Negative); Blood Urine Negative (Negative); Color Urine Yellow; Glucose Urine UA Negative (Negative); Ketones Urine Trace (Negative); Leukocyte Esterase Urine 1+ (Negative); Nitrite Urine Positive (Negative); Protein Urine 1+ (Negative); RBC Urine Automated 0-4 /hpf (0-4); Specific Gravity Urine > 1.045 (1.000-1.030); Urobilinogen Urine Negative (Negative); WBC Urine Automated >30 /hpf (0-5)
--- NOTE | 2023-03-28 08:05 | XRay Report ---
KUB CLINICAL HISTORY: Generalized abdominal pain. FINDINGS: 2 AP, portable, supine abdominal radiographs are compared to study dated 02/22/2023 and cor related with abdominal CT dated 02/20/2023. Bilateral iliac stents are in place. There are distended and gas-filled loops of small bowel which measure up to 4.2 cm diameter. This suggests small bowel ob struction. No evidence of intraperitoneal free air is seen on these supine images. There are no abnor mal abdominal calcifications. Phleboliths are noted in the pelvis. Multifocal airspace opacities are present at the lung bases. The skeletal structures are osteopenic and appear intact. Osteoblastic met astatic disease is noted in the right iliac wing. IMPRESSION: 1. There is evidence of small bowel obstruction. 2. Osteoblastic metastatic disease is noted in the right ilium. 3. Multifocal airspace opacities are seen at both lung bases. Electronically signed by: Shaheen Blanca M.D. 03/28/2023 8:03 AM
[2023-03-28] MEDS: CHECK fentaNYL PATCH PLACEMENT SCH ×3 (08:48→23:55)
--- NOTE | 2023-03-28 09:21 | XRay Report ---
KUB HISTORY: Acute generalized abdominal pain NGT placement COMPARISON: CT 03/28/2023 FINDINGS: Status post placement of an enteric tube, distal tip projected over the gastric body. Persi stent high-grade small bowel obstruction with dilated air-filled loops of small bowel measuring up to 5.2 cm. Contrast in the urinary bladder lumen. Iliac arterial stent grafts. No renal calculi. No ur eteral calculi. No pneumoperitoneum or pneumatosis. No fracture. IMPRESSION: 1. Distal tip of enteric tube projects over the gastric body. 2. Persistent high-grade small bowel obstruction. ACT 112: Negative or not required by law. The above report was generated using voice recognition software. It may contain grammatical, syntax o r spelling errors. Electronically signed by: Al Newsome M.D. 03/28/2023 9:20 AM
[2023-03-28] MEDS: cilostazoL 100 MG TAB PO SCH (09:28)
[2023-03-28] MEDS: DULoxetine HCL 60 MG CAP PO SCH (09:28)
[2023-03-28] MEDS: POTASSIUM CHLORIDE CRTAB 20 MEQ TABCR PO SCH (09:28)
[2023-03-28] MEDS: droNABinol 2.5 MG CAP PO SCH ×2 (09:28→21:17)
[2023-03-28] MEDS: predniSONE 20 MG TAB PO SCH (09:28)
[2023-03-28] MEDS: GABAPENTIN 100 MG CAP PO SCH ×2 (09:28→21:17)
[2023-03-28] MEDS: MAGNESIUM OXIDE 400 MG TAB PO SCH (09:28)
[2023-03-28 09:41] LABS: Calcium 9.3 mg/dl (8.6-10.3); Magnesium 1.8 mg/dl (1.7-2.4); Potassium 3.8 mmol/L (3.5-5.1)
[2023-03-28 09:46] LABS: BUN Creatinine Ratio 32.8 (10-20); Creatinine Clr Calc Pharmacy 93.2 ml/min; Est GFR (African American) 120.8 ml/min; Est GFR (Non-African American) 104.2 ml/min
[2023-03-28 09:55] LABS: Basophils # (auto) 0.02 K/uL (0.00-0.20); Basophils % (auto) 0.3 %; Eosinophils # (auto) 0.05 K/uL (0.00-0.50); Eosinophils % (auto) 0.7 %; Hematocrit (blood only) 35.5 % (37.0-47.0); Hemoglobin 10.3 g/dl (12.0-16.0); Immature Granulocytes # (auto) 0.13 K/uL (0.01-0.20); Immature Granulocytes % (auto) 1.8 %; Lymphocytes # (auto) 0.48 K/uL (1.20-3.40); Lymphocytes % (auto) 6.6 %; Mean Corpuscular Volume 75.7 fL (80.0-100.0); Mean Platelet Volume 8.9 fL (9.4-12.4); Monocytes # (auto) 0.72 K/uL (0.11-0.59); Monocytes % (auto) 9.9 %; Neutrophils # (auto) 5.87 K/uL (1.40-6.50); Neutrophils % (auto) 80.7 %; Nucleated RBC # (auto) 0.03 K/uL (0.00-0.12); Nucleated RBC % (auto) 0.4 %; Platelet Count 330 K/uL (130-400); RDW Coefficient of Variation 22.5 % (11.5-14.5); RDW Standard Deviation 56.5 fL (36.4-46.3); Red Blood Count 4.69 M/uL (4.20-5.40); White Blood Count 7.27 K/ul (4.8-10.8)
[2023-03-28] MEDS: ONDANSETRON INJ 2 MG/ML 2 ML VIAL IV PRN ×3 (10:12→19:23)
[2023-03-28] MEDS: ENOXAPARIN 100 MG/1ML SYR SQ SCH ×2 (10:12→21:17)
[2023-03-28 10:18] LABS: Anisocytosis Present; Ovalocytes 1+; Polychromasia 1+
--- NOTE | 2023-03-28 10:48 | CT Scan Report ---
CT SCAN OF THE CHEST WITHOUT IV CONTRAST CLINICAL HISTORY: Cough. History of cervical cancer. COMPARISON STUDY: Chest CT dated 02/16/2023. TECHNIQUE: CT scan of the thorax was performed from the thoracic inlet to the upper abdomen. Images are reviewed in the axial, sagittal, and coronal planes. IV contrast was not administered for this ex amination as per the referring clinician. A dose lowering technique was utilized adhering to the annie jeana of [place]. CT DOSE: 170.36 mGy.cm FINDINGS: Thyroid: Imaged portions of the thyroid gland are normal in size and attenuation. Thoracic aorta: The thoracic aorta is normal in caliber and demonstrates standard 3-vessel arch anato my. Heart: A right internal jugular central venous infusion port is in place. The heart is normal in size and without pericardial effusion. Lungs and pleural spaces: Extensive irregular cavitary pulmonary nodules/lesions are again seen throu ghout both lungs with surrounding groundglass halo/consolidation. A patient intake representative lesion in the righ t lower lobe has modestly increased in size from 02/16/2023. This measures up to 2.5 cm (previously m easured 2.1 cm). There is no pleural effusion. The trachea and central airways are clear. Mediastinum: A mildly enlarged pretracheal node measures 11 mm in short axis. Jess: Hilar adenopathy is suspected. The jess are not well assessed without IV contrast. Axillae: There is no axillary lymphadenopathy. Upper abdomen: There is perihepatic ascites. Excreted IV contrast is seen in the left upper pole ayana ecting system. A small hiatal hernia is noted. Skeletal structures: The skeletal structures are osteopenic. There is a mild superior end plate compr ession deformity of T5. No lytic or blastic bony lesions are seen. There are chronic/healed bilateral rib fractures. IMPRESSION: 1. Again seen are multiple scattered irregular nodules throughout both lungs, the majority of which s how cavitation. These lesions show surrounding groundglass halo/consolidation. These findings likely represent metastatic cervical cancer. Superimposed pneumonia is not excluded. An atypical fungal infe ction, multifocal/cavitary pneumonia, and/or septic emboli could potentially appear similar. Clinical correlation will be essential. 2. There is no pleural effusion. 3. Hilar adenopathy is suspected but not well evaluated. There are mildly enlarged mediastinal nodes. 4. Perihepatic ascites. 5. Additional findings ACT 112: Negative or not required by law. Electronically signed by: Shaheen Blanca M.D. 03/28/2023 10:47 AM
[2023-03-28] MEDS: methylPREDNISolone 20 MG in SYRINGE 0 ML IV SCH (11:04)
[2023-03-28] MEDS: levoFLOXacin/D5W 750 MG/150 ML BAG IV SCH (13:01)
--- NOTE | 2023-03-28 17:34 | Surgery Progress Note ---
Date of Service March 28, 2023 Assessment & Plan (1) SBO (small bowel obstruction): Plan: Assessment: Patient is a 52 years old female who is approximate hour history's stage IV cervical cancer metastatic to lung, pelvic, and bone. Thrombosis of the right femoral vein. Presented to ED with a couple days history of abdominal pain with nausea and vomiting. The pain located the periumbilical area. Last bowel movement yesterday. Patient denies any fever or chills. No chest pain. Patient had a CT scan diagnosis small bowel obstruction. Plan: No emergency surgical indication now. Conservative treatment. N.p.o., IV fluid, NG tube, control pain, repeat labs and KUB tomorrow. Also I indicated patient may need a surgical treatment if patient symptoms getting worse, severe pain, fever, or increasing WBC. Patient understood. she agreed with the treatment plan. I answered all questions. will F/U 03/28/2023 5:36 PM F/U SBO, less abdominal pain, not pass flatus yet, continue treatment. will F/U Admission and Anticipated Discharge Date Admission Date: March 28, 2023 Subjective less abdominal pain, not pass flatus yet, NG - 400ml, Review of Systems Constitutional: as per Subjective / HPI Eyes: as per Subjective / HPI Respiratory: as per Subjective / HPI Cervical cancer metastatic to lung Cardiovascular: as per Subjective / HPI Gastrointestinal: as per Subjective / HPI Genitourinary: Hysterectomy Musculoskeletal: Cervical cancer metastatic to the spinal Neurologic: as per Subjective / HPI Psychiatric: as per Subjective / HPI Endocrine: as per Subjective / HPI Hematologic / Lymphatic: as per Subjective / HPI Physical Exam Constitutional: WD/WN, vitals as above Eyes: PERRL, conjunctivae normal, anicteric sclerae Neck: trachea midline, no thyromegaly Respiratory: normal respiratory effort, lungs clear to auscultation Cardiovascular: RRR, no murmur, no edema Gastrointestinal (Abdomen): soft, mild tenderness at periumbilical area, no rebound pain, no distend, BS +. Musculoskeletal: no cyanosis or clubbing, extremities motor strength 5/5 Neurologic: patellar DTR's 2+ bilat, sensation intact Psychiatric: A+Ox3, euthymic affect Results & Data Vital Signs (Past 12 Hours) Vital Signs Temp Pulse Pulse Resp BP BP Pulse Ox 03/28/23 14:51 36.6 C 100 H 16 112/72 93 03/28/23 08:00 36.6 C 106 H 20 132/88 94 03/28/23 07:45 03/28/23 06:10 03/28/23 06:10 36.8 C 122 H 16 141/94 H 96 O2 Del Method 03/28/23 14:51 Room Air 03/28/23 08:00 Room Air 03/28/23 07:45 Room Air 03/28/23 06:10 Room Air 03/28/23 06:10 Room Air Laboratory Results Lab Results 03/27/23 03/28/23 03/28/23 Range/Units 22:52 07:33 09:00 WBC 10.27 7.27 (4.8-10.8) K/ul RBC 5.10 4.69 (4.20-5.40) M/uL Hgb 11.4 L 10.3 L (12.0-16.0) g/dl Hct 36.9 L 35.5 L (37.0-47.0) % MCV 72.4 L 75.7 L (80.0-100.0) fL MCH 22.4 L 22.0 L (25.0-34.0) pg MCHC 30.9 L 29.0 L (32.0-36.0) g/dL RDW Std Deviation 52.6 H 56.5 H (36.4-46.3) fL RDW Coeff of Luis 22.5 H 22.5 H (11.5-14.5) % Plt Count 404 H 330 (130-400) K/uL MPV 8.4 L 8.9 L (9.4-12.4) fL Immature Gran % (Auto) 3.3 1.8 % Neut % (Auto) 77.7 80.7 % Lymph % (Auto) 8.2 6.6 % [place] % (Auto) 10.0 9.9 % Eos % (Auto) 0.5 0.7 % Baso % (Auto) 0.3 0.3 % Neut # (Auto) 7.98 H 5.87 (1.40-6.50) K/uL Lymph # (Auto) 0.84 L 0.48 L (1.20-3.40) K/uL [place] # (Auto) 1.03 H 0.72 H (0.11-0.59) K/uL Eos # (Auto) 0.05 0.05 (0.00-0.50) K/uL Baso # (Auto) 0.03 0.02 (0.00-0.20) K/uL Immature Gran # (Auto) 0.34 H 0.13 (0.01-0.20) K/uL Absolute Nucleated RBC 0.18 H 0.03 (0.00-0.12) K/uL Nucleated RBC % (auto) 1.8 0.4 % Polychromasia 1+ 1+ Anisocytosis Present Present Tear Drop Cells 1+ Ovalocytes 1+ 1+ Sodium 136 137 (136-145) mmol/L Potassium 3.8 3.8 (3.5-5.1) mmol/L Chloride 95 L 98 (98-107) mmol/L Carbon Dioxide 27 29 (21-32) mmol/L Anion Gap 14 H 10 (3-11) BUN 23 20 (6-23) mg/dl Creatinine 0.58 L 0.61 (0.6-1.2) mg/dl Est Cr Clr Drug Dosing 98.0 93.2 ml/min Est GFR ( Amer) 122.8 120.8 ml/min Est GFR (Non-Af Amer) 106.0 104.2 ml/min BUN/Creatinine Ratio 39.7 H 32.8 H (10-20) Glucose 137 H 131 H (70-99(Fasting)) mg/dl Calcium 10.4 H 9.3 (8.6-10.3) mg/dl Magnesium 1.8 (1.7-2.4) mg/dl Total Bilirubin 0.5 (0.2-1.0) mg/dl AST 13 (13-39) U/L ALT 44 (7-52) U/L Alkaline Phosphatase 107 H (34-104) U/L Total Protein 7.9 (6.0-8.3) gm/dl Albumin 4.1 (3.4-5.0) gm/dl Globulin 3.8 (2.5-4.0) gm/dl Albumin/Globulin Ratio 1.1 (0.9-2) Lipase 11 (11-82) U/L Procalcitonin (0-0.5) ng/ml Urine Color Yellow Urine Appearance Clear (Clear) Urine pH 7.0 (4.5-7.5) Ur Specific [place] > 1.045 H (1.000-1.030) Urine Protein 1+ H (Negative) Urine Glucose (UA) Negative (Negative) Urine Ketones Trace H (Negative) Urine Blood Negative (Negative) Urine Nitrite Positive A (Negative) Urine Bilirubin Negative (Negative) Urine Urobilinogen Negative (Negative) Ur Leukocyte Esterase 1+ H (Negative) Urine WBC (Auto) >30 H (0-5) /hpf Urine RBC (Auto) 0-4 (0-4) /hpf U Hyaline Cast (Auto) 10-30 H (0-5) /lpf U Epithel Cells (Auto) 10-20 H (0-5) /lpf Urine Bacteria (Auto) 4+ H (Negative) 03/28/23 Range/Units 09:31 WBC (4.8-10.8) K/ul RBC (4.20-5.40) M/uL Hgb (12.0-16.0) g/dl Hct (37.0-47.0) % MCV (80.0-100.0) fL MCH (25.0-34.0) pg MCHC (32.0-36.0) g/dL RDW Std Deviation (36.4-46.3) fL RDW Coeff of Luis (11.5-14.5) % Plt Count (130-400) K/uL MPV (9.4-12.4) fL Immature Gran % (Auto) % Neut % (Auto) % Lymph % (Auto) % [place] % (Auto) % Eos % (Auto) % Baso % (Auto) % Neut # (Auto) (1.40-6.50) K/uL Lymph # (Auto) (1.20-3.40) K/uL [place] # (Auto) (0.11-0.59) K/uL Eos # (Auto) (0.00-0.50) K/uL Baso # (Auto) (0.00-0.20) K/uL Immature Gran # (Auto) (0.01-0.20) K/uL Absolute Nucleated RBC (0.00-0.12) K/uL Nucleated RBC % (auto) % Polychromasia Anisocytosis Tear Drop Cells Ovalocytes Sodium (136-145) mmol/L Potassium (3.5-5.1) mmol/L Chloride (98-107) mmol/L Carbon Dioxide (21-32) mmol/L Anion Gap (3-11) BUN (6-23) mg/dl Creatinine (0.6-1.2) mg/dl Est Cr Clr Drug Dosing ml/min Est GFR ( Amer) ml/min Est GFR (Non-Af Amer) ml/min BUN/Creatinine Ratio (10-20) Glucose (70-99(Fasting)) mg/dl Calcium (8.6-10.3) mg/dl Magnesium (1.7-2.4) mg/dl Total Bilirubin (0.2-1.0) mg/dl AST (13-39) U/L ALT (7-52) U/L Alkaline Phosphatase (34-104) U/L Total Protein (6.0-8.3) gm/dl Albumin (3.4-5.0) gm/dl Globulin (2.5-4.0) gm/dl Albumin/Globulin Ratio (0.9-2) Lipase (11-82) U/L Procalcitonin 0.15 (0-0.5) ng/ml Urine Color Urine Appearance (Clear) Urine pH (4.5-7.5) Ur Specific [place] (1.000-1.030) Urine Protein (Negative) Urine Glucose (UA) (Negative) Urine Ketones (Negative) Urine Blood (Negative) Urine Nitrite (Negative) Urine Bilirubin (Negative) Urine Urobilinogen (Negative) Ur Leukocyte Esterase (Negative) Urine WBC (Auto) (0-5) /hpf Urine RBC (Auto) (0-4) /hpf U Hyaline Cast (Auto) (0-5) /lpf U Epithel Cells (Auto) (0-5) /lpf Urine Bacteria (Auto) (Negative) Diagnostic Findings KUB HISTORY: Acute generalized abdominal pain NGT placement COMPARISON: CT 03/28/2023 FINDINGS: Status post placement of an enteric tube, distal tip projected over the gastric body. Persistent high-grade small bowel obstruction with dilated air-filled loops of small bowel measuring up to 5.2 cm. Contrast in the urinary bladder lumen. Iliac arterial stent grafts. No renal calculi. No ureteral calculi. No pneumoperitoneum or pneumatosis. No fracture. IMPRESSION: 1. Distal tip of enteric tube projects over the gastric body. 2. Persistent high-grade small bowel obstruction.
--- NOTE | 2023-03-28 17:48 | Hospitalist Progress Note ---
Date of Service March 28, 2023 Assessment & Plan (1) SBO (small bowel obstruction): Plan: 52 y/o F with PMH stage IV cervical cancer with metastasis to lungs, pelvis & vertebrae, chronic thrombosis right femoral vein, BLE thrombectomy and stenting on chronic Lovenox and Pletal, right ureteral stricture, history of adjustment disorder with anxiety presents with abdominal pain and found to have small bowel obstruction. Patient was here in January with abdominal pain found to ileus and partial small bowel obstruction. Patient states she was advised to use low fiber diet and she is compliant with it. Today again she developed abdominal with nausea and vomiting ,pain is mostly located in the periumbilical region radiating to the back . Her bowels are moving ok. Last bowel movement was at around 7pm. Denies any fevers. No chest pain or shortness of breath. No headache. No cough. No sore throat. Hemodynamics are stable. Small bowel obstruction H/O radical hysterectomy --CT ABD: Suggestive of small bowel obstruction Conservative management as per surgery Appreciate surgery input Continue IV fluids, bowel rest Minimize IV pain medications as able Abnormal CT Suspected pneumonia Urinalysis suggestive of possible UTI Patient reports chronic cough unchanged next Normal procalcitonin Urine culture pending Empirically started on Levaquin Stage IV cervical cancer with metastatic to lungs pelvis and vertebrae Currently on chemo Gemcitabine every two weeks.Last dose on Currently on Marinol to help reduce the use of Dilaudid. On fentanyl patch Follows with oncology as outpatient Chronic DVT History of chronic DVT in right femoral vein. History of multiple lower extremity venous thrombectomy and stent procedures. Most recent seems to be in 2021 at [facility] in [facility] Chronic Left lower extremity lymphedema Continue Lovenox Resume Pletal as able DVT Px: SQ Lovenox CODE STATUS Full Code Admission and Anticipated Discharge Date Admission Date: March 28, 2023 Subjective Patient is seen and examined at bedside Nausea, abdominal pain better today Reports chronic cough Denies any chest pain, dyspnea, dysuria, dizziness Nausea improved with NG tube placement No other complaints Review of Systems Review of Systems: All systems reviewed & are unremarkable except as noted in Subjective Physical Exam Physical Exam: Physical Exam: Vitals signs as noted above General Appearance: Thin, frail, chronically appearing, no apparent distress Head: normocephalic, Atraumatic Eyes: normal inspection, EOMI Neck: supple, Trachea midline Respiratory/Chest: Normal breath sounds, CTA, No accessory muscle use Cardiovascular: S1, S2, No murmur Abdomen/GI:Soft, mild tender, no significant distention, Bowel sounds decreased Extremities/Musculoskeletal:normal inspection, LLE chronic lymphedema Neurologic/Psych:AAOX3, grossly no focal neurological deficits Skin: normal color, warm Results & Data Results & Data Vital Signs (Past 12 Hours) Vital Signs Temp Pulse Pulse Resp BP BP Pulse Ox 03/28/23 14:51 36.6 C 100 H 16 112/72 93 03/28/23 08:00 36.6 C 106 H 20 132/88 94 03/28/23 07:45 03/28/23 06:10 03/28/23 06:10 36.8 C 122 H 16 141/94 H 96 O2 Del Method 03/28/23 14:51 Room Air 03/28/23 08:00 Room Air 03/28/23 07:45 Room Air 03/28/23 06:10 Room Air 03/28/23 06:10 Room Air Laboratory Results Short CBC 03/27/23 03/28/23 Range/Units 22:52 09:00 WBC 10.27 7.27 (4.8-10.8) K/ul Hgb 11.4 L 10.3 L (12.0-16.0) g/dl Hct 36.9 L 35.5 L (37.0-47.0) % Plt Count 404 H 330 (130-400) K/uL BMP 03/27/23 03/28/23 22:52 09:00 Sodium 136 137 Potassium 3.8 3.8 Chloride 95 L 98 Carbon Dioxide 27 29 BUN 23 20 Creatinine 0.58 L 0.61 Glucose 137 H 131 H Calcium 10.4 H 9.3 Liver Function 03/27/23 Range/Units 22:52 Total Bilirubin 0.5 (0.2-1.0) mg/dl AST 13 (13-39) U/L ALT 44 (7-52) U/L Alkaline Phosphatase 107 H (34-104) U/L Albumin 4.1 (3.4-5.0) gm/dl Urine 03/28/23 Range/Units 07:33 Urine Color Yellow Urine Appearance Clear (Clear) Urine pH 7.0 (4.5-7.5) Ur Specific [place] > 1.045 H (1.000-1.030) Urine Protein 1+ H (Negative) Urine Glucose (UA) Negative (Negative)
[2023-03-28] MEDS ORDERED: OXYBUTYNIN CHLORIDE XL 5 MG TABCR PO SCH (21:00)
[2023-03-28] MEDS ORDERED: OLANZAPINE 2.5 MG TAB PO SCH (21:00)
[2023-03-28] MEDS ORDERED: MELATONIN 3 MG TAB PO SCH (21:00)
[2023-03-28] MEDS: OLANZapine 10 MG/2.1 ML SDV IM SCH (21:20)
[2023-03-29] MEDS: D5W AND 1/2NSS 1,000 ML IV SCH ×2 (02:10→02:55)
[2023-03-29] MEDS: ONDANSETRON INJ 2 MG/ML 2 ML VIAL IV PRN ×4 (02:27→19:28)
[2023-03-29] MEDS: HYDROmorphone INJ 0.5 MG/0.5 ML SYR IV PRN ×2 (04:12→19:27)
[2023-03-29 07:39] LABS: BUN Creatinine Ratio 24.4 (10-20); Calcium 8.3 mg/dl (8.6-10.3); Creatinine Clr Calc Pharmacy 138.6 ml/min; Est GFR (African American) 137.7 ml/min; Est GFR (Non-African American) 118.8 ml/min; Magnesium 1.6 mg/dl (1.7-2.4); Potassium 3.1 mmol/L (3.5-5.1)
[2023-03-29 07:48] LABS: Hematocrit (blood only) 25.6 % (37.0-47.0); Hemoglobin 7.4 g/dl (12.0-16.0); Mean Corpuscular Hemoglobin 22.2 pg (25.0-34.0); Mean Corpuscular Hgb Conc 28.9 g/dL (32.0-36.0); Mean Corpuscular Volume 76.6 fL (80.0-100.0); Mean Platelet Volume 9.1 fL (9.4-12.4); Platelet Count 220 K/uL (130-400); RDW Coefficient of Variation 21.3 % (11.5-14.5); RDW Standard Deviation 56.9 fL (36.4-46.3); Red Blood Count 3.34 M/uL (4.20-5.40); White Blood Count 5.12 K/ul (4.8-10.8)
[2023-03-29] MEDS: DULoxetine HCL 60 MG CAP PO SCH (08:14)
[2023-03-29] MEDS: droNABinol 2.5 MG CAP PO SCH ×2 (08:14→21:41)
[2023-03-29] MEDS: CHECK fentaNYL PATCH PLACEMENT SCH ×2 (08:15→15:48)
[2023-03-29] MEDS: GABAPENTIN 100 MG CAP PO SCH ×2 (08:15→21:41)
[2023-03-29] MEDS: methylPREDNISolone 20 MG in SYRINGE 0 ML IV SCH (08:42)
[2023-03-29] MEDS: fentaNYL 12 MCG/HR TDSY TD SCH (08:42)
[2023-03-29] MEDS: ENOXAPARIN 100 MG/1ML SYR SQ SCH (08:42)
[2023-03-29] MEDS ORDERED: POTASSIUM CHLORIDE 20 MEQ in D5W AND 1/2NSS 1,000 ML IV SCH (09:13)
[2023-03-29] MEDS ORDERED: MAGNESIUM SULFATE / D5W 1 GM/100 ML BAG IV ONE (09:15)
[2023-03-29] MEDS: POTASSIUM CHLORIDE / WTR 10 MEQ/100 ML PLCT IV SCH ×3 (10:03→12:22)
--- NOTE | 2023-03-29 11:00 | Surgery Progress Note ---
Date of Service March 29, 2023 Assessment & Plan (1) SBO (small bowel obstruction): Plan: Assessment: Patient is a 52 years old female who is approximate hour history's stage IV cervical cancer metastatic to lung, pelvic, and bone. Thrombosis of the right femoral vein. Presented to ED with a couple days history of abdominal pain with nausea and vomiting. The pain located the periumbilical area. Last bowel movement yesterday. Patient denies any fever or chills. No chest pain. Patient had a CT scan diagnosis small bowel obstruction. Plan: No emergency surgical indication now. Conservative treatment. N.p.o., IV fluid, NG tube, control pain, repeat labs and KUB tomorrow. Also I indicated patient may need a surgical treatment if patient symptoms getting worse, severe pain, fever, or increasing WBC. Patient understood. she agreed with the treatment plan. I answered all questions. will F/U 03/28/2023 5:36 PM F/U SBO, less abdominal pain, not pass flatus yet, continue treatment. will F/U 03/29/2023 10 58 AM F/U SBO, less abdominal pain, not pass flatus yet, continue treatment. H/H down to 7.4 stop lovenox, protonix 40 mg iv bid consult GI for possible GI bleeding, repeat labs in afternoon will F/U Admission and Anticipated Discharge Date Admission Date: March 28, 2023 Subjective F/U SBO, pt said she feels better, less abdominal pain, not pass gas or BM yet. no fever, NG 1100ml. not bloody. H/H down to 7.4, pt denies weakness, no light head. Review of Systems Constitutional: as per Subjective / HPI Eyes: as per Subjective / HPI Respiratory: as per Subjective / HPI Cervical cancer metastatic to lung Cardiovascular: as per Subjective / HPI Gastrointestinal: as per Subjective / HPI Genitourinary: Hysterectomy Musculoskeletal: Cervical cancer metastatic to the spinal Neurologic: as per Subjective / HPI Psychiatric: as per Subjective / HPI Endocrine: as per Subjective / HPI Hematologic / Lymphatic: as per Subjective / HPI Physical Exam Constitutional: WD/WN, vitals as above Eyes: PERRL, conjunctivae normal, anicteric sclerae Neck: trachea midline, no thyromegaly Respiratory: normal respiratory effort, lungs clear to auscultation Cardiovascular: RRR, no murmur, no edema Gastrointestinal (Abdomen): soft, NT, ND, BS +. Musculoskeletal: no cyanosis or clubbing, extremities motor strength 5/5 Neurologic: patellar DTR's 2+ bilat, sensation intact Psychiatric: A+Ox3, euthymic affect Results & Data Vital Signs (Past 12 Hours) Vital Signs Temp Pulse Resp BP Pulse Ox O2 Del Method 03/29/23 08:49 Room Air 03/29/23 07:04 36.8 C 93 H 16 111/72 93 Room Air Laboratory Results Lab Results 03/27/23 03/28/23 03/28/23 Range/Units 22:52 07:33 09:00 WBC 10.27 7.27 (4.8-10.8) K/ul RBC 5.10 4.69 (4.20-5.40) M/uL Hgb 11.4 L 10.3 L (12.0-16.0) g/dl Hct 36.9 L 35.5 L (37.0-47.0) % MCV 72.4 L 75.7 L (80.0-100.0) fL MCH 22.4 L 22.0 L (25.0-34.0) pg MCHC 30.9 L 29.0 L (32.0-36.0) g/dL RDW Std Deviation 52.6 H 56.5 H (36.4-46.3) fL RDW Coeff of Luis 22.5 H 22.5 H (11.5-14.5) % Plt Count 404 H 330 (130-400) K/uL MPV 8.4 L 8.9 L (9.4-12.4) fL Immature Gran % (Auto) 3.3 1.8 % Neut % (Auto) 77.7 80.7 % Lymph % (Auto) 8.2 6.6 % [place] % (Auto) 10.0 9.9 % Eos % (Auto) 0.5 0.7 % Baso % (Auto) 0.3 0.3 % Neut # (Auto) 7.98 H 5.87 (1.40-6.50) K/uL Lymph # (Auto) 0.84 L 0.48 L (1.20-3.40) K/uL [place] # (Auto) 1.03 H 0.72 H (0.11-0.59) K/uL Eos # (Auto) 0.05 0.05 (0.00-0.50) K/uL Baso # (Auto) 0.03 0.02 (0.00-0.20) K/uL Immature Gran # (Auto) 0.34 H 0.13 (0.01-0.20) K/uL Absolute Nucleated RBC 0.18 H 0.03 (0.00-0.12) K/uL Nucleated RBC % (auto) 1.8 0.4 % Polychromasia 1+ 1+ Anisocytosis Present Present Tear Drop Cells 1+ Ovalocytes 1+ 1+ Sodium 136 137 (136-145) mmol/L Potassium 3.8 3.8 (3.5-5.1) mmol/L Chloride 95 L 98 (98-107) mmol/L Carbon Dioxide 27 29 (21-32) mmol/L Anion Gap 14 H 10 (3-11) BUN 23 20 (6-23) mg/dl Creatinine 0.58 L 0.61 (0.6-1.2) mg/dl Est Cr Clr Drug Dosing 98.0 93.2 ml/min Est GFR ( Amer) 122.8 120.8 ml/min Est GFR (Non-Af Amer) 106.0 104.2 ml/min BUN/Creatinine Ratio 39.7 H 32.8 H (10-20) Glucose 137 H 131 H (70-99(Fasting)) mg/dl Calcium 10.4 H 9.3 (8.6-10.3) mg/dl Magnesium 1.8 (1.7-2.4) mg/dl Total Bilirubin 0.5 (0.2-1.0) mg/dl AST 13 (13-39) U/L ALT 44 (7-52) U/L Alkaline Phosphatase 107 H (34-104) U/L Total Protein 7.9 (6.0-8.3) gm/dl Albumin 4.1 (3.4-5.0) gm/dl Globulin 3.8 (2.5-4.0) gm/dl Albumin/Globulin Ratio 1.1 (0.9-2) Lipase 11 (11-82) U/L Procalcitonin (0-0.5) ng/ml Urine Color Yellow Urine Appearance Clear (Clear) Urine pH 7.0 (4.5-7.5) Ur Specific [place] > 1.045 H (1.000-1.030) Urine Protein 1+ H (Negative) Urine Glucose (UA) Negative (Negative) Urine Ketones Trace H (Negative) Urine Blood Negative (Negative) Urine Nitrite Positive A (Negative) Urine Bilirubin Negative (Negative) Urine Urobilinogen Negative (Negative) Ur Leukocyte Esterase 1+ H (Negative) Urine WBC (Auto) >30 H (0-5) /hpf Urine RBC (Auto) 0-4 (0-4) /hpf U Hyaline Cast (Auto) 10-30 H (0-5) /lpf U Epithel Cells (Auto) 10-20 H (0-5) /lpf Urine Bacteria (Auto) 4+ H (Negative) 03/28/23 03/29/23 Range/Units 09:31 06:27 WBC 5.12 (4.8-10.8) K/ul RBC 3.34 L (4.20-5.40) M/uL Hgb 7.4 L D (12.0-16.0) g/dl Hct 25.6 L (37.0-47.0) % MCV 76.6 L (80.0-100.0) fL MCH 22.2 L (25.0-34.0) pg MCHC 28.9 L (32.0-36.0) g/dL RDW Std Deviation 56.9 H (36.4-46.3) fL RDW Coeff of Luis 21.3 H (11.5-14.5) % Plt Count 220 (130-400) K/uL MPV 9.1 L (9.4-12.4) fL Immature Gran % (Auto) % Neut % (Auto) % Lymph % (Auto) % [place] % (Auto) % Eos % (Auto) % Baso % (Auto) % Neut # (Auto) (1.40-6.50) K/uL Lymph # (Auto) (1.20-3.40) K/uL [place] # (Auto) (0.11-0.59) K/uL Eos # (Auto) (0.00-0.50) K/uL Baso # (Auto) (0.00-0.20) K/uL Immature Gran # (Auto) (0.01-0.20) K/uL Absolute Nucleated RBC (0.00-0.12) K/uL Nucleated RBC % (auto) % Polychromasia Anisocytosis Tear Drop Cells Ovalocytes Sodium 137 (136-145) mmol/L Potassium 3.1 L (3.5-5.1) mmol/L Chloride 103 (98-107) mmol/L Carbon Dioxide 30 (21-32) mmol/L Anion Gap 4 (3-11) BUN 10 (6-23) mg/dl Creatinine 0.41 L (0.6-1.2) mg/dl Est Cr Clr Drug Dosing 138.6 ml/min Est GFR ( Amer) 137.7 ml/min Est GFR (Non-Af Amer) 118.8 ml/min BUN/Creatinine Ratio 24.4 H (10-20) Glucose 98 (70-99(Fasting)) mg/dl Calcium 8.3 L (8.6-10.3) mg/dl Magnesium 1.6 L (1.7-2.4) mg/dl Total Bilirubin (0.2-1.0) mg/dl AST (13-39) U/L ALT (7-52) U/L Alkaline Phosphatase (34-104) U/L Total Protein (6.0-8.3) gm/dl Albumin (3.4-5.0) gm/dl Globulin (2.5-4.0) gm/dl Albumin/Globulin Ratio (0.9-2) Lipase (11-82) U/L Procalcitonin 0.15 (0-0.5) ng/ml Urine Color Urine Appearance (Clear) Urine pH (4.5-7.5) Ur Specific [place] (1.000-1.030) Urine Protein (Negative) Urine Glucose (UA) (Negative) Urine Ketones (Negative) Urine Blood (Negative) Urine Nitrite (Negative) Urine Bilirubin (Negative) Urine Urobilinogen (Negative) Ur Leukocyte Esterase (Negative) Urine WBC (Auto) (0-5) /hpf Urine RBC (Auto) (0-4) /hpf U Hyaline Cast (Auto) (0-5) /lpf U Epithel Cells (Auto) (0-5) /lpf Urine Bacteria (Auto) (Negative)
[2023-03-29] MEDS ORDERED: SODIUM CHLORIDE 0.9% 250 ML IV PRN (11:36)
--- NOTE | 2023-03-29 11:51 | Communication Note ---
Date of Service: March 29, 2023 GI communication note: We received a consult from Surgery team (Dr. Godinez) to eval pt for possible GI bleeding. Chart reviewed and case discussed with Dr. Morrison. Pt is a 52 yo female w metastatic cervical ca, bilateral LE thrombectomy w stent placement, R ureteral stricture, anxiety, admitted with SBO. KUB today showed persistent high-grade SBO. Surgery following, no immediate surgical plans at this time. Noted last BM charted on 03/27. Pt's Hgb is 7, down from baseline of 10-11 earlier this month. With persistent SBO and no overt s/s of GI bleeding, we recommend avoiding endoscopic evals to r/o GI bleed given high risk for perforation and aspiration. Defer to surgery and primary team for SBO management. Pls recall GI prn
[2023-03-29] MEDS: D5W AND 1/2NSS + 20MEQ KCL 20 MEQ/1,000 ML BAG IV SCH ×2 (12:03→21:05)
[2023-03-29 12:07] LABS: Hematocrit (blood only) 28.9 % (37.0-47.0); Hemoglobin 8.4 g/dl (12.0-16.0)
[2023-03-29] MEDS: levoFLOXacin/D5W 750 MG/150 ML BAG IV SCH (12:22)
--- NOTE | 2023-03-29 14:00 | Hospitalist Progress Note ---
Date of Service March 29, 2023 Assessment & Plan (1) SBO (small bowel obstruction): Plan: 52 y/o F with PMH stage IV cervical cancer with metastasis to lungs, pelvis & vertebrae, chronic thrombosis right femoral vein, BLE thrombectomy and stenting on chronic Lovenox and Pletal, right ureteral stricture, history of adjustment disorder with anxiety presents with abdominal pain and found to have small bowel obstruction. Patient was here in January with abdominal pain found to ileus and partial small bowel obstruction. Small bowel obstruction H/O radical hysterectomy --CT ABD: Suggestive of small bowel obstruction Conservative management as per surgery Appreciate surgery input- continue IV fluids, bowel rest, NG tube in place Minimize IV pain medications as able Anemia Hgb 7.4 today (was 10.3 yesterday), likely hemoconcentrated on arrival, repeat hgb of 8.4 today closer to patient baseline No overt source of bleeding, lovenox held by surgery for now Monitor CBC closely, consented for blood product if needed, consider transfusion for hgb <7 Uncomplicated UTI Urinalysis suggestive of possible UTI on admission Preliminary urine culture growing with gram negative bacilli Continue empiric Levaquin Hypomagnesemia, hypokalemia In setting of PO lytes being held. Replacing, continue to monitor Stage IV cervical cancer with metastatic to lungs pelvis and vertebrae Currently on chemo Gemcitabine every two weeks.Last dose on Currently on Marinol to help reduce the use of Dilaudid On fentanyl patch Follows with oncology as outpatient Chronic DVT History of chronic DVT in right femoral vein. History of multiple lower ext remity venous thrombectomy and stent procedures. Most recent seems to be in 2021 at [facility] in [place], [place] Chronic Left lower extremity lymphedema Continue Lovenox Resume Pletal as able DVT Px: SQ Lovenox CODE STATUS Full Code Admission and Anticipated Discharge Date Admission Date: March 28, 2023 Supervising Physician Co-Signing Physician Notes Patient is seen and examined at bedside. Subjectively feels better. Nausea is controlled. Denies any bowel movement, flatus today. Also denies any abdominal pain, chest pain, dyspnea. Drop in hemoglobin likely dilutional due to IV fluids. Physical exam fairly unchanged from yesterday. Small bowel obstruction. Continue bowel rest, IV fluids, NG tube. Increased NG tube output noted. GI evaluated for possible GI bleed. Currently no concerns for GI bleed. Monitor CBC. Will resume Lovenox tomorrow if hemoglobin stable. Continue Levaquin for possible UTI. Follow-up cultures. I personally reviewed the record. Patient is interviewed and examined at bedside. Patient's care is coordinated with Susie Torres PA-C. Please refer to the documentation above for details of patient's presentation and for discussion of other issues. Subjective Seen in follow-up for SBO in [phone]. Feeling improved today, now with intermittent lowed abd discomfort where it was constant pain previously. NG in place, no nausea. No bloody NG output. No lightheadedness, vision changes or CP. Denies F/C, SOB, dysuria. Feeling some gurgling in abdomen but not yet passing flatus. Has a chronic dry cough. Review of Systems Review of Systems: At least ten systems reviewed and negative except as noted in the HPI. Physical Exam Physical Exam: Gen: Thin, frail, chronically appearing, no apparent distress, A&Ox3, NG in place HEENT: Normocephalic, atraumatic, conjunctivae moist, sclerae anicteric, mucous membranes moist Lung: Clear to Auscultation bilaterally, no wheezes/rales/rhonchi Heart: Regular rate, regular rhythm, no murmurs, rubs, or gallops Abdomen: Soft, mild lower TTP, ND, +BS x 4 Extremities: no edema Skin: Warm, no rash Results & Data Results & Data Vital Signs (Past 12 Hours) Vital Signs Temp Pulse Resp BP Pulse Ox O2 Del Method 03/29/23 08:49 Room Air 03/29/23 07:04 36.8 C 93 H 16 111/72 93 Room Air Laboratory Results Short CBC 03/29/23 03/29/23 Range/Units 06:27 11:53 WBC 5.12 (4.8-10.8) K/ul Hgb 7.4 L D 8.4 L (12.0-16.0) g/dl Hct 25.6 L 28.9 L (37.0-47.0) % Plt Count 220 (130-400) K/uL BMP 03/29/23 06:27 Sodium 137 Potassium 3.1 L Chloride 103 Carbon Dioxide 30 BUN 10 Creatinine 0.41 L Glucose 98 Calcium 8.3 L Diagnostic Findings KUB X-Ray 03/27/23 22:54 KUB CLINICAL HISTORY: Generalized abdominal pain. FINDINGS: 2 AP, portable, supine abdominal radiographs are compared to study dated 02/22/2023 and correlated with abdominal CT dated 02/20/2023. Bilateral iliac stents are in place. There are distended and gas-filled loops of small bowel which measure up to 4.2 cm diameter. This suggests small bowel obstruction. No evidence of intraperitoneal free air is seen on these supine images. There are no abnormal abdominal calcifications. Phleboliths are noted in the pelvis. Multifocal airspace opacities are present at the lung bases. The skeletal structures are osteopenic and appear intact. Osteoblastic metastatic disease is noted in the right iliac wing. IMPRESSION: 1. There is evidence of small bowel obstruction. 2. Osteoblastic metastatic disease is noted in the right ilium. 3. Multifocal airspace opacities are seen at both lung bases. Electronically signed by: Shaheen Blanca M.D. 03/28/2023 8:03 AM Abdomen/Pelvis CT 03/27/23 23:05 Exam(s): CT ABDOMEN + PELVIS With Contrast IV Amt: 90 ML OPTIRAY 320 EXAM: CT Abdomen and Pelvis With Intravenous Contrast CLINICAL HISTORY: Reason for exam: abdominal pain; vomiting. TECHNIQUE: Axial computed tomography images of the abdomen and pelvis with intravenous contrast. CTDI is 10.84 mGy and DLP is 552.49 mGy-cm. Automated exposure control was utilized for the study. A dose lowering technique was utilized adhering to the principles of ALARA. CONTRAST: Patient received 90 ML OPTIRAY 320 of IV contrast COMPARISON: No relevant prior studies available. FINDINGS: Lung bases: Innumerable cavitating bilateral pulmonary lesions. Multifocal pneumonia concerning for septic emboli. ABDOMEN: Liver: Unremarkable. No mass. Gallbladder and bile ducts: Unremarkable. No calcified stones. No ductal dilation. Pancreas: Unremarkable. No mass. No ductal dilation. Spleen: Unremarkable. No splenomegaly. Adrenals: Unremarkable. No mass. Kidneys and ureters: Unremarkable. No solid mass. No hydronephrosis. Stomach and bowel: Marked small bowel obstruction. High-grade small bowel obstruction. No mucosal thickening. PELVIS: Appendix: No findings to suggest acute appendicitis. Bladder: Unremarkable. No mass. Reproductive: Unremarkable as visualized. ABDOMEN and PELVIS: Intraperitoneal space: Unremarkable. No free air. No significant fluid collection. Bones/joints: No acute fracture. No dislocation. Soft tissues: Unremarkable. Vasculature: See above. Lymph nodes: Unremarkable. No enlarged lymph nodes. IMPRESSION: Pneumonia with small bowel obstruction Electronically signed by: Chadd Francois MD 03/28/23 01:[address] 03/28/23 07:09 CT SCAN OF THE CHEST WITHOUT IV CONTRAST CLINICAL HISTORY: Cough. History of cervical cancer. COMPARISON STUDY: Chest CT dated 02/16/2023. TECHNIQUE: CT scan of the thorax was performed from the thoracic inlet to the upper abdomen. Images are reviewed in the axial, sagittal, and coronal planes. IV contrast was not administered for this examination as per the referring clinician. A dose lowering technique was utilized adhering to the principles of ALARA. CT DOSE: 170.36 mGy.cm FINDINGS: Thyroid: Imaged portions of the thyroid gland are normal in size and attenuation. Thoracic aorta: The thoracic aorta is normal in caliber and demonstrates standard 3-vessel arch anatomy. Heart: A right internal jugular central venous infusion port is in place. The heart is normal in size and without pericardial effusion. Lungs and pleural spaces: Extensive irregular cavitary pulmonary nodules/lesions are again seen throughout both lungs with surrounding groundglass halo/consolidation. 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 This measures up to 2.5 cm (previously measured 2.1 cm). There is no pleural effusion. The trachea and central airways are clear. Mediastinum: A mildly enlarged pretracheal node measures 11 mm in short axis. Jess: Hilar adenopathy is suspected. The jess are not well assessed without IV contrast. Axillae: There is no axillary lymphadenopathy. Upper abdomen: There is perihepatic ascites. Excreted IV contrast is seen in the left upper pole collecting system. A small hiatal hernia is noted. Skeletal structures: The skeletal structures are osteopenic. There is a mild superior end plate compression deformity of T5. No lytic or blastic bony lesions are seen. There are chronic/healed bilateral rib fractures. IMPRESSION: 1. Again seen are multiple scattered irregular nodules throughout both lungs, the majority of which show cavitation. These lesions show surrounding groundglass halo/consolidation. These findings likely represent metastatic cervical cancer. Superimposed pneumonia is not excluded. An atypical fungal infection, multifocal/cavitary pneumonia, and/or septic emboli could potentially appear similar. Clinical correlation will be essential. 2. There is no pleural effusion. 3. Hilar adenopathy is suspected but not well evaluated. There are mildly enlarged mediastinal nodes. 4. Perihepatic ascites. 5. Additional findings ACT 112: Negative or not required by law. Electronically signed by: Shaheen Blanca M.D. 03/28/2023 10:47 AM KUB X-Ray 03/28/23 08:46 KUB HISTORY: Acute generalized abdominal pain NGT placement COMPARISON: CT 03/28/2023 FINDINGS: Status post placement of an enteric tube, distal tip projected over the gastric body. Persistent high-grade small bowel obstruction with dilated air-filled loops of small bowel measuring up to 5.2 cm. Contrast in the urinary bladder lumen. Iliac arterial stent grafts. No renal calculi. No ureteral calculi. No pneumoperitoneum or pneumatosis. No fracture. IMPRESSION: 1. Distal tip of enteric tube projects over the gastric body. 2. Persistent high-grade small bowel obstruction. ACT 112: Negative or not required by law. The above report was generated using voice recognition software. It may contain grammatical, syntax or spelling errors. Electronically signed by: Al Newsome M.D. 03/28/2023 9:20 AM
[2023-03-29 17:21] LABS: Hematocrit (blood only) 25.9 % (37.0-47.0); Hemoglobin 7.8 g/dl (12.0-16.0)
[2023-03-29] MEDS: OLANZapine 10 MG/2.1 ML SDV IM SCH (21:06)
[2023-03-29] MEDS: PANTOprazole 40 MG in SYRINGE 0 ML IV SCH (21:09)
[2023-03-30] MEDS: CHECK fentaNYL PATCH PLACEMENT SCH ×3 (00:38→16:30)
[2023-03-30] MEDS: ONDANSETRON INJ 2 MG/ML 2 ML VIAL IV PRN ×4 (01:28→20:29)
[2023-03-30] MEDS: D5W AND 1/2NSS + 20MEQ KCL 20 MEQ/1,000 ML BAG IV SCH ×2 (06:24→18:17)
[2023-03-30] MEDS: droNABinol 2.5 MG CAP PO SCH ×2 (08:05→20:13)
[2023-03-30] MEDS: DULoxetine HCL 60 MG CAP PO SCH (08:05)
[2023-03-30] MEDS: GABAPENTIN 100 MG CAP PO SCH ×2 (08:05→20:13)
[2023-03-30] MEDS: methylPREDNISolone 20 MG in SYRINGE 0 ML IV SCH (08:05)
[2023-03-30] MEDS: PANTOprazole 40 MG in SYRINGE 0 ML IV SCH ×2 (08:05→20:12)
[2023-03-30 08:48] LABS: Hematocrit (blood only) 27.2 % (37.0-47.0); Hemoglobin 7.8 g/dl (12.0-16.0); Mean Corpuscular Hemoglobin 22.1 pg (25.0-34.0); Mean Corpuscular Hgb Conc 28.7 g/dL (32.0-36.0); Mean Corpuscular Volume 77.1 fL (80.0-100.0); Mean Platelet Volume 9.2 fL (9.4-12.4); Platelet Count 203 K/uL (130-400); RDW Coefficient of Variation 21.2 % (11.5-14.5); RDW Standard Deviation 57.1 fL (36.4-46.3); Red Blood Count 3.53 M/uL (4.20-5.40)
[2023-03-30 09:12] LABS: BUN Creatinine Ratio 11.1 (10-20); Calcium 8.9 mg/dl (8.6-10.3); Creatinine Clr Calc Pharmacy 126.3 ml/min; Est GFR (African American) 133.5 ml/min; Est GFR (Non-African American) 115.2 ml/min; Magnesium 1.5 mg/dl (1.7-2.4); Potassium 3.6 mmol/L (3.5-5.1)
--- NOTE | 2023-03-30 11:50 | Surgery Progress Note ---
Date of Service March 30, 2023 Assessment & Plan (1) SBO (small bowel obstruction): Plan: Assessment: Patient is a 52 years old female who is approximate hour history's stage IV cervical cancer metastatic to lung, pelvic, and bone. Thrombosis of the right femoral vein. Presented to ED with a couple days history of abdominal pain with nausea and vomiting. The pain located the periumbilical area. Last bowel movement yesterday. Patient denies any fever or chills. No chest pain. Patient had a CT scan diagnosis small bowel obstruction. Plan: No emergency surgical indication now. Conservative treatment. N.p.o., IV fluid, NG tube, control pain, repeat labs and KUB tomorrow. Also I indicated patient may need a surgical treatment if patient symptoms getting worse, severe pain, fever, or increasing WBC. Patient understood. she agreed with the treatment plan. I answered all questions. will F/U 03/28/2023 5:36 PM F/U SBO, less abdominal pain, not pass flatus yet, continue treatment. will F/U 03/29/2023 10 58 AM F/U SBO, less abdominal pain, not pass flatus yet, continue treatment. H/H down to 7.4 stop lovenox, protonix 40 mg iv bid consult GI for possible GI bleeding, repeat labs in afternoon will F/U 03/30/2023 11:52 AM F/U SBO, passed some flatus, no abdominal pain, small bowel follow through study with Gastrografin. 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 Admission and Anticipated Discharge Date Admission Date: March 28, 2023 Subjective F/U SBO, pt doing better, passed some flatus, not pass stool yet. no significant abdominal pain. NG 1450ml Review of Systems Constitutional: as per Subjective / HPI Eyes: as per Subjective / HPI Respiratory: as per Subjective / HPI Cervical cancer metastatic to lung Cardiovascular: as per Subjective / HPI Gastrointestinal: as per Subjective / HPI Genitourinary: Hysterectomy Musculoskeletal: Cervical cancer metastatic to the spinal Neurologic: as per Subjective / HPI Psychiatric: as per Subjective / HPI Endocrine: as per Subjective / HPI Hematologic / Lymphatic: as per Subjective / HPI Physical Exam Constitutional: WD/WN, vitals as above Eyes: PERRL, conjunctivae normal, anicteric sclerae Neck: trachea midline, no thyromegaly Respiratory: normal respiratory effort, lungs clear to auscultation Cardiovascular: RRR, no murmur, no edema Gastrointestinal (Abdomen): soft, mild tenderness, no rebound pain, ND, BS +. Musculoskeletal: no cyanosis or clubbing, extremities motor strength 5/5 Neurologic: patellar DTR's 2+ bilat, sensation intact Psychiatric: A+Ox3, euthymic affect Results & Data Vital Signs (Past 12 Hours) Vital Signs Temp Pulse Resp BP Pulse Ox O2 Del Method 03/30/23 08:30 Room Air 03/30/23 07:44 37 C 11 L 17 151/80 H 92 Room Air Laboratory Results Abnormal lab results 03/29/23 03/29/23 03/30/23 Range/Units 11:53 17:08 08:16 RBC 3.53 L (4.20-5.40) M/uL Hgb 8.4 L 7.8 L 7.8 L (12.0-16.0) g/dl Hct 28.9 L 25.9 L 27.2 L (37.0-47.0) % MCV 77.1 L (80.0-100.0) fL MCH 22.1 L (25.0-34.0) pg MCHC 28.7 L (32.0-36.0) g/dL RDW Std Deviation 57.1 H (36.4-46.3) fL RDW Coeff of Luis 21.2 H (11.5-14.5) % MPV 9.2 L (9.4-12.4) fL Chloride 108 H (98-107) mmol/L BUN 5 L (6-23) mg/dl Creatinine 0.45 L (0.6-1.2) mg/dl Glucose 100 H (70-99(Fasting)) mg/dl Magnesium 1.5 L (1.7-2.4) mg/dl Crossmatch See Detail
[2023-03-30] MEDS: MAGNESIUM SULFATE / D5W 1 GM/100 ML BAG IV SCH ×2 (12:36→14:20)
[2023-03-30] MEDS: levoFLOXacin/D5W 750 MG/150 ML BAG IV SCH (12:36)
--- NOTE | 2023-03-30 16:20 | Hospitalist Progress Note ---
Date of Service March 30, 2023 Assessment & Plan (1) SBO (small bowel obstruction): Plan: 52 y/o F with PMH stage IV cervical cancer with metastasis to lungs, pelvis & vertebrae, chronic thrombosis right femoral vein, BLE thrombectomy and stenting on chronic Lovenox and Pletal, right ureteral stricture, history of adjustment disorder with anxiety presents with abdominal pain and found to have small bowel obstruction. Patient was here in January with abdominal pain found to ileus and partial small bowel obstruction. Small bowel obstruction H/O radical hysterectomy --CT ABD: Suggestive of small bowel obstruction Conservative management as per surgery Appreciate surgery input- continue IV fluids, bowel rest, NG tube in place but starting to pass flatus Has not needed any pain medication or antiemetics today Undergoing small bowel follow through study with Gastrografin per general surgery Anemia Hgb stable at 7.8 today after a likely hemoconcentrated hgb level of 10 on arrival, repeat hgb today closer to patient baseline No overt source of bleeding, will resume Lovenox this evening in setting of cervical cancer Monitor CBC closely, consented for blood product if needed, consider transfusion for hgb <7 Uncomplicated UTI Urinalysis suggestive of possible UTI on admission Preliminary urine culture growing with gram negative bacilli Continue empiric Levaquin Hypomagnesemia, hypokalemia In setting of PO lytes being held. Replacing, continue to monitor Stage IV cervical cancer with metastatic to lungs pelvis and vertebrae Currently on chemo Gemcitabine every two weeks. Last dose on Currently on Marinol to help reduce the use of Dilaudid On fentanyl patch Follows with oncology as outpatient Chronic DVT History of chronic DVT in right femoral vein. History of multiple lower extremity venous thrombectomy and stent procedures. Most recent seems to be in 2021 at [facility] in [place], [place] Chronic Left lower extremity lymphedema Continue Lovenox Resume Pletal as able DVT Px: SQ Lovenox CODE STATUS Full Code Admission and Anticipated Discharge Date Admission Date: March 28, 2023 Supervising Physician Co-Signing Physician Notes Patient is seen and examined at bedside. + Flatus today. Subjectively feels better. Denies any nausea, vomiting, abdominal pain today. NG tube clamped. Small bowel follow-through pending. Hb stable. Noted some bowel sounds improved on physical exam. Respiratory, cardiac, neuro exam unchanged from yesterday. Small bowel obstruction. Continue bowel rest, IV fluids, NG tube clamped. Currently no signs of GI bleed. Hemoglobin stable. Will resume therapeutic Lovenox. Monitor CBC. Urine culture growing Klebsiella. Continue Levaquin. I personally reviewed the record. Patient is interviewed and examined at bedside. Patient's care is coordinated with Susie Torres PA-C. Please refer to the documentation above for details of patient's presentation and for discussion of other issues. Subjective Patient seen and examined in 323 in follow-up for small bowel obstruction. Feeling much better today without any abdominal pain. Feeling more gurgling and passing gas, feeling like she may have a bowel movement later this evening. Denies any more issues with nausea. Has a chronic cough in setting of pulmonary nodules. No fever, chills, lightheadedness, chest pain, shortness of breath, dysuria. Review of Systems Review of Systems: At least ten systems reviewed and negative except as noted in the HPI. Physical Exam Physical Exam: Gen: Thin, frail, chronically appearing, no apparent distress, A&Ox3, NG in place HEENT: Normocephalic, atraumatic, conjunctivae moist, sclerae anicteric, mucous membranes moist Lung: Clear to Auscultation bilaterally, no wheezes/rales/rhonchi Heart: Regular rate, regular rhythm, no murmurs, rubs, or gallops Abdomen: Soft, NT, ND, +BS x 4 Extremities: no edema Skin: Warm, no rash Results & Data Results & Data Vital Signs (Past 12 Hours) Vital Signs Temp Pulse Resp BP Pulse Ox O2 Del Method 03/30/23 15:42 101 H 95 Room Air 03/30/23 15:35 36.7 C 111 H 16 121/83 94 Room Air 03/30/23 08:30 Room Air 03/30/23 07:44 37 C 100 H 17 151/80 H 92 Room Air Laboratory Results Short CBC 03/29/23 03/30/23 Range/Units 17:08 08:16 WBC 5.10 (4.8-10.8) K/ul Hgb 7.8 L 7.8 L (12.0-16.0) g/dl Hct 25.9 L 27.2 L (37.0-47.0) % Plt Count 203 (130-400) K/uL BMP 03/30/23 08:16 Sodium 138 Potassium 3.6 Chloride 108 H Carbon Dioxide 26 BUN 5 L Creatinine 0.45 L Glucose 100 H Calcium 8.9 Diagnostic Findings KUB X-Ray 03/27/23 22:54 KUB CLINICAL HISTORY: Generalized abdominal pain. FINDINGS: 2 AP, portable, supine abdominal radiographs are compared to study dated 02/22/2023 and correlated with abdominal CT dated 02/20/2023. Bilateral iliac stents are in place. There are distended and gas-filled loops of small bowel which measure up to 4.2 cm diameter. This suggests small bowel obstruction. No evidence of intraperitoneal free air is seen on these supine images. There are no abnormal abdominal calcifications. Phleboliths are noted in the pelvis. Multifocal airspace opacities are present at the lung bases. The skeletal structures are osteopenic and appear intact. Osteoblastic metastatic disease is noted in the right iliac wing. IMPRESSION: 1. There is evidence of small bowel obstruction. 2. Osteoblastic metastatic disease is noted in the right ilium. 3. Multifocal airspace opacities are seen at both lung bases. Electronically signed by: Shaheen Blanca M.D. 03/28/2023 8:03 AM Abdomen/Pelvis CT 03/27/23 23:05 Exam(s): CT ABDOMEN + PELVIS With Contrast IV Amt: 90 ML OPTIRAY 320 EXAM: CT Abdomen and Pelvis With Intravenous Contrast CLINICAL HISTORY: Reason for exam: abdominal pain; vomiting. TECHNIQUE: Axial computed tomography images of the abdomen and pelvis with intravenous contrast. CTDI is 10.84 mGy and DLP is 552.49 mGy-cm. Automated exposure control was utilized for the study. A dose lowering technique was utilized adhering to the principles of ALARA. CONTRAST: Patient received 90 ML OPTIRAY 320 of IV contrast COMPARISON: No relevant prior studies available. FINDINGS: Lung bases: Innumerable cavitating bilateral pulmonary lesions. Multifocal pneumonia concerning for septic emboli. ABDOMEN: Liver: Unremarkable. No mass. Gallbladder and bile ducts: Unremarkable. No calcified stones. No ductal dilation. Pancreas: Unremarkable. No mass. No ductal dilation. Spleen: Unremarkable. No splenomegaly. Adrenals: Unremarkable. No mass. Kidneys and ureters: Unremarkable. No solid mass. No hydronephrosis. Stomach and bowel: Marked small bowel obstruction. High-grade small bowel obstruction. No mucosal thickening. PELVIS: Appendix: No findings to suggest acute appendicitis. Bladder: Unremarkable. No mass. Reproductive: Unremarkable as visualized. ABDOMEN and PELVIS: Intraperitoneal space: Unremarkable. No free air. No significant fluid collection. Bones/joints: No acute fracture. No dislocation. Soft tissues: Unremarkable. Vasculature: See above. Lymph nodes: Unremarkable. No enlarged lymph nodes. IMPRESSION: Pneumonia with small bowel obstruction Electronically signed by: Chadd Francois MD 03/28/23 01:[address] 03/28/23 07:09 CT SCAN OF THE CHEST WITHOUT IV CONTRAST CLINICAL HISTORY: Cough. History of cervical cancer. COMPARISON STUDY: Chest CT dated 02/16/2023. TECHNIQUE: CT scan of the thorax was performed from the thoracic inlet to the upper abdomen. Images are reviewed in the axial, sagittal, and coronal planes. IV contrast was not administered for this examination as per the referring clinician. A dose lowering technique was utilized adhering to the principles of ALARA. CT DOSE: 170.36 mGy.cm FINDINGS: Thyroid: Imaged portions of the thyroid gland are normal in size and attenuation. Thoracic aorta: The thoracic aorta is normal in caliber and demonstrates standard 3-vessel arch anatomy. Heart: A right internal jugular central venous infusion port is in place. The heart is normal in size and without pericardial effusion. Lungs and pleural spaces: Extensive irregular cavitary pulmonary nodules/lesions are again seen throughout both lungs with surrounding groundglass halo/consolidation. A patient access representative lesion in the right lower lobe has modestly increased in size from 02/16/2023. This measures up to 2.5 cm (previously measured 2.1 cm). There is no pleural effusion. The trachea and central airways are clear. Mediastinum: A mildly enlarged pretracheal node measures 11 mm in short axis. Jess: Hilar adenopathy is suspected. The jess are not well assessed without IV contrast. Axillae: There is no axillary lymphadenopathy. Upper abdomen: There is perihepatic ascites. Excreted IV contrast is seen in the left upper pole collecting system. A small hiatal hernia is noted. Skeletal structures: The skeletal structures are osteopenic. There is a mild superior end plate compression deformity of T5. No lytic or blastic bony lesions are seen. There are chronic/healed bilateral rib fractures. IMPRESSION: 1. Again seen are multiple scattered irregular nodules throughout both lungs, the majority of which show cavitation. These lesions show surrounding groundglass halo/consolidation. These findings likely represent metastatic cervical cancer. Superimposed pneumonia is not excluded. An atypical fungal infection, multifocal/cavitary pneumonia, and/or septic emboli could potentially appear similar. Clinical correlation will be essential. 2. There is no pleural effusion. 3. Hilar adenopathy is suspected but not well evaluated. There are mildly enlarged mediastinal nodes. 4. Perihepatic ascites. 5. Additional findings ACT 112: Negative or not required by law. Electronically signed by: Shaheen Blanca M.D. 03/28/2023 10:47 AM KUB X-Ray 03/28/23 08:46 KUB HISTORY: Acute generalized abdominal pain NGT placement COMPARISON: CT 03/28/2023 FINDINGS: Status post placement of an enteric tube, distal tip projected over the gastric body. Persistent high-grade small bowel obstruction with dilated air-filled loops of small bowel measuring up to 5.2 cm. Contrast in the urinary bladder lumen. Iliac arterial stent grafts. No renal calculi. No ureteral ru culi. No pneumoperitoneum or pneumatosis. No fracture. IMPRESSION: 1. Distal tip of enteric tube projects over the gastric body. 2. Persistent high-grade small bowel obstruction. ACT 112: Negative or not required by law. The above report was generated using voice recognition software. It may contain grammatical, syntax or spelling errors. Electronically signed by: Al Newsome M.D. 03/28/2023 9:20 AM
[2023-03-30] MEDS: ENOXAPARIN INJ 60 MG/0.6 ML SYR SQ SCH (20:12)
[2023-03-30] MEDS: OLANZapine 10 MG/2.1 ML SDV IM SCH (20:12)
[2023-03-30] MEDS ORDERED: LORazepam 0.25 MG in SYRINGE 0.125 ML IV STA (22:00)
[2023-03-31] MEDS: CHECK fentaNYL PATCH PLACEMENT SCH ×4 (00:35→23:28)
[2023-03-31] MEDS ORDERED: HEPARIN 100 UNIT/ML 5ML FLUSH FLUSH PRN (03:51)
[2023-03-31] MEDS: D5W AND 1/2NSS + 20MEQ KCL 20 MEQ/1,000 ML BAG IV SCH ×2 (04:11→12:05)
--- NOTE | 2023-03-31 05:36 | Surgery Progress Note ---
Date of Service March 31, 2023 Assessment & Plan (1) SBO (small bowel obstruction): Plan: Patient has been admitted on the hospitalist service. From surgical perspective we recommend proceeding as follows: Continue antiemetics as needed Continue analgesics as needed Patient has undergone a small bowel follow-through study on 03/30/2023 with official radiology read pending For the present time we will keep patient n.p.o. and maintain NG tube As patient has had return of bowel function and has a benign abdominal exam, consideration can be given to removing NG tube and initiating clear liquids unless there are findings on small bowel follow-through which contraindicate doing such Continue ambulation as able Check a.m. labs when available Lovenox is in place for DVT prevention as above. feeling much better. multiple bms. KUB shows contrast in colon...will pull NGT and start liquids. Admission and Anticipated Discharge Date Admission Date: March 28, 2023 Subjective Patient is currently resting comfortably in bed. She notes over the past shift she has had multiple small bowel movements and is passing flatus. She denies any abdominal pain. She denies any fevers, shakes, or chills. She denies any nausea or vomiting Physical Exam Gastrointestinal (Abdomen): Abdomen is soft, nonrigid, nondistended. Bowel sounds are present. There is no pain with palpation. There is no rebound tenderness or guarding. NG tube is in place and is drained 575 cc over the past 24 hours Results & Data Vital Signs (Past 12 Hours) Vital Signs Temp Pulse Resp BP Pulse Ox O2 Del Method 03/30/23 20:09 36.8 C 99 H 16 127/80 94 Room Air 03/30/23 20:00 Room Air PG Care Time/CCT Total # of Minutes Spent Total Time Spent with Patient: Total time spent is greater than 50% in coordination of care (as documented) at patient's floor/unit and/or counseling patient: Coding Level of Care Code 27417 SUB INP/OBS CARE 04/26MIN Diagnoses SBO (small bowel obstruction) K56.609
[2023-03-31] MEDS: ONDANSETRON INJ 2 MG/ML 2 ML VIAL IV PRN (05:43)
--- NOTE | 2023-03-31 08:01 | Fluoroscopy Report ---
FL small bowel follow through CLINICAL HISTORY: 52 years-old Female with SBO. Follow-up study in a patient with small bowel obstru ction TECHNIQUE: Oral barium was administered to the patient and serial radiographs of the abdomen were pe rformed. COMPARISON STUDY: KUB 03/28/2023, CT 03/28/2023. FLUOROSCOPY TIME: 0 minutes. 15 images were submitted FINDINGS: Banquet Cook radiograph of the abdomen demonstrates multiple persistent dilated loops of air-fill ed small bowel scattered throughout the abdomen. No gross pneumoperitoneum. An enteric tube distal ti p terminates in the stomach. Biiliac arterial grafts. Upon the administration of oral barium contrast, there is prompt opacification of the gastric lumen a nd proximal small bowel. Transit to the large bowel did not definitively occur through the images ob tained through 6 hours. The terminal ileum is not well visualized. IMPRESSION: Persistent high-grade small bowel obstruction. Continued follow-up radiographs recommend ed. ACT 112: Negative or not required by law. The above report was generated using voice recognition software. It may contain grammatical, syntax o r spelling errors. Electronically signed by: Al Newsome M.D. 03/31/2023 8:00 AM
[2023-03-31] MEDS: PANTOprazole 40 MG in SYRINGE 0 ML IV SCH ×2 (08:45→22:01)
[2023-03-31] MEDS: ENOXAPARIN INJ 60 MG/0.6 ML SYR SQ SCH ×2 (08:45→21:23)
[2023-03-31] MEDS: methylPREDNISolone 20 MG in SYRINGE 0 ML IV SCH (08:45)
[2023-03-31] MEDS: droNABinol 2.5 MG CAP PO SCH ×2 (08:52→22:01)
[2023-03-31] MEDS: DULoxetine HCL 60 MG CAP PO SCH (08:52)
[2023-03-31] MEDS: GABAPENTIN 100 MG CAP PO SCH ×2 (08:52→21:22)
[2023-03-31 09:51] LABS: BUN Creatinine Ratio 10.4 (10-20); Calcium 8.8 mg/dl (8.6-10.3); Creatinine Clr Calc Pharmacy 118.4 ml/min; Est GFR (African American) 130.7 ml/min; Est GFR (Non-African American) 112.8 ml/min; Magnesium 1.6 mg/dl (1.7-2.4); Potassium 3.6 mmol/L (3.5-5.1)
[2023-03-31 09:52] LABS: Hematocrit (blood only) 26.1 % (37.0-47.0); Hemoglobin 7.8 g/dl (12.0-16.0); Mean Corpuscular Hemoglobin 22.3 pg (25.0-34.0); Mean Corpuscular Hgb Conc 29.9 g/dL (32.0-36.0); Mean Corpuscular Volume 74.8 fL (80.0-100.0); Mean Platelet Volume 9.2 fL (9.4-12.4); Platelet Count 209 K/uL (130-400); RDW Coefficient of Variation 21.2 % (11.5-14.5); RDW Standard Deviation 55.2 fL (36.4-46.3); Red Blood Count 3.49 M/uL (4.20-5.40); White Blood Count 5.67 K/ul (4.8-10.8)
[2023-03-31] MEDS ORDERED: MAGNESIUM SULFATE / D5W 1 GM/100 ML BAG IV ONE (10:11)
--- NOTE | 2023-03-31 11:02 | XRay Report ---
KUB HISTORY: Acute onset abdominal pain sbo COMPARISON: Small bowel follow-through 03/30/2023, CT abdomen and pelvis 03/28/2023 FINDINGS: Distal tip of enteric tube projects over the gastric body. There is progression of the ente gal contrast into the large bowel and rectum. There is persistent small bowel distention with mild di stention of the large bowel. Iliac arterial grafts. Cardiomegaly with bibasilar opacities and cathete r projected over the right atrium. No renal calculi. No ureteral calculi. No pneumoperitoneum or pne umatosis. No fracture. IMPRESSION: 1. Interval progression of the enteric contrast into the large bowel compatible with partial small robin wel obstruction. 2. Distal tip of enteric tube projects over the gastric body. ACT 112: Negative or not required by law. The above report was generated using voice recognition software. It may contain grammatical, syntax o r spelling errors. Electronically signed by: Al Newsome M.D. 03/31/2023 11:00 AM
[2023-03-31] MEDS: levoFLOXacin/D5W 750 MG/150 ML BAG IV SCH (12:04)
--- NOTE | 2023-03-31 20:17 | Hospitalist Progress Note ---
Date of Service March 31, 2023 Assessment & Plan (1) SBO (small bowel obstruction): Plan: 52 y/o F with PMH stage IV cervical cancer with metastasis to lungs, pelvis & vertebrae, chronic thrombosis right femoral vein, BLE thrombectomy and stenting on chronic Lovenox and Pletal, right ureteral stricture, history of adjustment disorder with anxiety presents with abdominal pain and found to have small bowel obstruction. Patient was here in January with abdominal pain found to ileus and partial small bowel obstruction. Small bowel obstruction H/O radical hysterectomy --CT ABD: Suggestive of small bowel obstruction Conservative management as per surgery Appreciate surgery input continue gentle IV fluids NG tube discontinued And bowel movements Started on clear liquid diet Surgery following Anemia Hgb stable at 7.8 today after a likely hemoconcentrated hgb level of 10 on arrival, repeat hgb today closer to patient baseline No overt source of bleeding, will resume Lovenox this evening in setting of cervical cancer Monitor CBC closely, consented for blood product if needed, consider transfusion for hgb <7 Uncomplicated UTI--POA Urine culture growing Klebsiella Continue Levaquin Hypomagnesemia, hypokalemia Replace and monitor Stage IV cervical cancer with metastatic to lungs pelvis and vertebrae Currently on chemo Gemcitabine every two weeks. Last dose on Currently on Marinol to help reduce the use of Dilaudid On fentanyl patch Follows with oncology as outpatient Chronic DVT History of chronic DVT in right femoral vein. History of multiple lower extremity venous thrombectomy and stent procedures. Most recent seems to be in 2021 at [facility] in [place], [place] Chronic Left lower extremity lymphedema Continue Lovenox Resumed Pletal DVT Px: SQ Lovenox CODE STATUS Full Code Admission and Anticipated Discharge Date Admission Date: March 28, 2023 Subjective Patient is seen and examined at bedside Patient had multiple bowel movements Denies any nausea, vomiting, abdominal pain NG tube removed Started on clear liquid diet Tolerating diet currently Denies any chest pain, dyspnea No other complaints Review of Systems Review of Systems: All systems reviewed & are unremarkable except as noted in Subjective Physical Exam Physical Exam: Physical Exam: Vitals signs as noted above General Appearance: Thin, frail, chronically appearing, no apparent distress Head: normocephalic, Atraumatic Eyes: normal inspection, EOMI Neck: supple, Trachea midline Respiratory/Chest: Normal breath sounds, CTA, No accessory muscle use Cardiovascular: S1, S2, No murmur Abdomen/GI:Soft, non tender, no significant distention, Bowel sounds present Extremities/Musculoskeletal:normal inspection, LLE chronic lymphedema Neurologic/Psych:AAOX3, grossly no focal neurological deficits Skin: normal color, warm Results & Data Results & Data Vital Signs (Past 12 Hours) Vital Signs Temp Pulse Resp BP Pulse Ox O2 Del Method 03/31/23 15:58 36.7 C 99 H 20 110/77 95 Room Air Laboratory Results Short CBC 03/31/23 Range/Units 08:41 WBC 5.67 (4.8-10.8) K/ul Hgb 7.8 L (12.0-16.0) g/dl Hct 26.1 L (37.0-47.0) % Plt Count 209 (130-400) K/uL BMP 03/31/23 08:41 Sodium 137 Potassium 3.6 Chloride 108 H Carbon Dioxide 23 BUN 5 L Creatinine 0.48 L Glucose 110 H Calcium 8.8
[2023-03-31] MEDS: cilostazoL 100 MG TAB PO SCH (22:01)
[2023-03-31] MEDS: OLANZapine 10 MG/2.1 ML SDV IM SCH (22:03)
[2023-04-01] MEDS: D5W AND 1/2NSS + 20MEQ KCL 20 MEQ/1,000 ML BAG IV SCH (03:25)
--- NOTE | 2023-04-01 06:15 | Surgery Progress Note ---
Date of Service April 01, 2023 Assessment & Plan (1) SBO (small bowel obstruction): Plan: Patient has been admitted on the hospitalist service. From surgical perspective we recommend continuing care as follows: Continue antiemetics as needed Continue analgesics as needed KUB on 03/31/2023 showed that contrast had reached the colon, therefore NG tube was removed and diet was advanced which has been tolerated Discontinue IV fluids once deemed oral intake is adequate Continue mobilization as tolerated Check a.m. labs when available Lovenox is in place for DVT prevention as above. doing well. will advance diet. ok for d/c. Admission and Anticipated Discharge Date Admission Date: March 28, 2023 Subjective Patient is resting comfortably in bed. She denies any nausea or vomiting. She has tolerated advancement of her diet to full liquids without any exacerbation of her abdominal pain. She currently denies any abdominal pain. Physical Exam Gastrointestinal (Abdomen): Bowel sounds are present. Abdomen is soft and nondistended. There is no pain with palpation. Results & Data Vital Signs (Past 12 Hours) Vital Signs Temp Pulse Resp BP Pulse Ox O2 Del Method 03/31/23 21:20 Room Air 03/31/23 20:46 36.4 C L 101 H 18 105/70 93 Room Air PG Care Time/CCT Total # of Minutes Spent Total Time Spent with Patient: Total time spent is greater than 50% in coordination of care (as documented) at patient's floor/unit and/or counseling patient: Coding Level of Care Code 40022 SUB INP/OBS CARE 04/26MIN Diagnoses SBO (small bowel obstruction) K56.609
[2023-04-01 08:18] LABS: Hematocrit (blood only) 29.3 % (37.0-47.0); Hemoglobin 8.4 g/dl (12.0-16.0)
[2023-04-01 08:28] LABS: BUN Creatinine Ratio 12.8 (10-20); Calcium 8.6 mg/dl (8.6-10.3); Creatinine Clr Calc Pharmacy 120.9 ml/min; Est GFR (African American) 131.6 ml/min; Est GFR (Non-African American) 113.6 ml/min; Magnesium 1.5 mg/dl (1.7-2.4); Potassium 3.6 mmol/L (3.5-5.1)
[2023-04-01] MEDS ORDERED: MAGNESIUM SULFATE / D5W 1 GM/100 ML BAG IV ONE (09:11)
[2023-04-01] MEDS: fentaNYL 12 MCG/HR TDSY TD SCH (09:30)
[2023-04-01] MEDS: droNABinol 2.5 MG CAP PO SCH (09:30)
[2023-04-01] MEDS: POTASSIUM CHLORIDE CRTAB 20 MEQ TABCR PO SCH (09:30)
[2023-04-01] MEDS: ENOXAPARIN INJ 60 MG/0.6 ML SYR SQ SCH (09:30)
[2023-04-01] MEDS: DULoxetine HCL 60 MG CAP PO SCH (09:31)
[2023-04-01] MEDS: cilostazoL 100 MG TAB PO SCH (09:31)
[2023-04-01] MEDS: PANTOprazole 40 MG in SYRINGE 0 ML IV SCH (09:31)
[2023-04-01] MEDS: GABAPENTIN 100 MG CAP PO SCH (09:31)
[2023-04-01] MEDS: MAGNESIUM OXIDE 400 MG TAB PO SCH (09:32)
[2023-04-01] MEDS: CHECK fentaNYL PATCH PLACEMENT SCH (09:32)
[2023-04-01] MEDS: predniSONE 20 MG TAB PO SCH (09:32)
[2023-04-01] MEDS ORDERED: levoFLOXacin 750 MG TAB PO SCH (11:00)
--- NOTE | 2023-04-01 13:42 | Hospitalist Progress Note ---
Date of Service April 01, 2023 Assessment & Plan (1) SBO (small bowel obstruction): Plan: 52 y/o F with PMH stage IV cervical cancer with metastasis to lungs, pelvis & vertebrae, chronic thrombosis right femoral vein, BLE thrombectomy and stenting on chronic Lovenox and Pletal, right ureteral stricture, history of adjustment disorder with anxiety presents with abdominal pain and found to have small bowel obstruction. Patient was here in January with abdominal pain found to ileus and partial small bowel obstruction. Small bowel obstruction H/O radical hysterectomy --CT ABD: Suggestive of small bowel obstruction Conservative management as per surgery Appreciate surgery input Discontinue IV fluids NG tube discontinued And bowel movements Tolerated low fiber diet Plan to be discharged home today Advised to follow-up with surgery on discharge Anemia Hgb stable at 7.8 today after a likely hemoconcentrated hgb level of 10 on arrival, repeat hgb today closer to patient baseline No overt source of bleeding, will resume Lovenox this evening in setting of cervical cancer Monitor CBC closely, consented for blood product if needed, consider transfusion for hgb <7 Uncomplicated UTI--POA Urine culture growing Klebsiella Continue Levaquin Hypomagnesemia, hypokalemia Replace and monitor Stage IV cervical cancer with metastatic to lungs pelvis and vertebrae Currently on chemo Gemcitabine every two weeks. Last dose on Currently on Marinol to help reduce the use of Dilaudid On fentanyl patch Follows with oncology as outpatient Chronic DVT History of chronic DVT in right femoral vein. History of multiple lower extrem ity venous thrombectomy and stent procedures. Most recent seems to be in 2021 at [facility] in [place], [place] Chronic Left lower extremity lymphedema Continue Lovenox Resumed Pletal DVT Px: SQ Lovenox CODE STATUS Full Code Disposition Home Admission and Anticipated Discharge Date Admission Date: March 28, 2023 Subjective Patient is seen and examined at bedside States feeling well today No new complaints Had bowel movements Tolerating low fiber diet No other complaints Plan to be discharged home today Cough much improved Review of Systems Review of Systems: All systems reviewed & are unremarkable except as noted in Subjective Physical Exam Physical Exam: Physical Exam: Vitals signs as noted above General Appearance: Thin, frail, chronically appearing, no apparent distress Head: normocephalic, Atraumatic Eyes: normal inspection, EOMI Neck: supple, Trachea midline Respiratory/Chest: Normal breath sounds, CTA, No accessory muscle use Cardiovascular: S1, S2, No murmur Abdomen/GI:Soft, non tender, no significant distention, Bowel sounds present Extremities/Musculoskeletal:normal inspection, LLE chronic lymphedema Neurologic/Psych:AAOX3, grossly no focal neurological deficits Skin: normal color, warm Results & Data Results & Data Vital Signs (Past 12 Hours) Vital Signs Temp Pulse Resp BP Pulse Ox O2 Del Method 04/01/23 08:00 Room Air 04/01/23 08:00 36.6 C 97 H 16 129/84 96 Room Air Laboratory Results Short CBC 04/01/23 Range/Units 07:41 Hgb 8.4 L (12.0-16.0) g/dl Hct 29.3 L (37.0-47.0) % BMP 04/01/23 07:41 Sodium 136 Potassium 3.6 Chloride 107 Carbon Dioxide 23 BUN 6 Creatinine 0.47 L Glucose 104 H Calcium 8.6
--- NOTE | 2023-04-01 13:49 | Discharge Summary ---
Date of Service April 01, 2023 Admission HPI Per Admitting Provider 52 y/o F with PMH stage IV cervical cancer with metastasis to lungs, pelvis & vertebrae, chronic thrombosis right femoral vein, BLE thrombectomy and stenting on chronic Lovenox and Pletal, right ureteral stricture, history of adjustment disorder with anxiety presents with abdominal pain and found to have small bowel obstruction. Patient was here in January with abdominal pain found to ileus and partial small bowel obstruction. Patient states she was advised to use low fiber diet and she is compliant with it. Today again she developed abdominal with nausea and vomiting ,pain is mostly located in the periumbilical region radiating to the back . Her bowels are moving ok. Last bowel movement was at around 7pm. Denies any fevers. No chest pain or shortness of breath. No headache. No cough. No sore throat. Hemodynamics are stable. Past medical history. As mentioned above Past surgical history. Colonoscopy. Cystoscopy. Removal of intranasal lesion. History of bilateral lower extremity thrombectomy and stenting. History of appendectomy. History hysterectomy. Social history. No smoking. No alcohol use. No drug use. Family history. As per [facility] no known problems of father and mother Admission Exam Per Admitting Provider Physical Exam: Vitals signs as noted above General Appearance: Thin, frail, chronically appearing, no apparent distress Head: normocephalic, Atraumatic Eyes: normal inspection, EOMI Neck: supple, Trachea midline Respiratory/Chest: Normal breath sounds, CTA, No accessory muscle use Cardiovascular: S1, S2, No murmur Abdomen/GI:Soft, non tender, no significant distention, Bowel sounds present Extremities/Musculoskeletal:normal inspection, LLE chronic lymphedema Neurologic/Psych:AAOX3, grossly no focal neurological deficits Skin: normal color, warm Principal Diagnosis Small bowel obstruction Urinary tract infection Suspected pneumonia Hypomagnesemia Hypokalemia Discharge Data Allergies Allergy/AdvReac Type Severity Reaction Status Date / Time cephalexin [From Keflex] Allergy Rash Verified 03/28/23 02:46 Consultations 03/28/23 02:00 ED Decision to Admit Stat 03/28/23 08:00 Consult General Surgery Routine 03/29/23 11:00 Consult Gastroenterology Routine Procedures Performed Laboratory Results WBC 5.67 K/ul (4.8-10.8) 03/31/23 08:41 RBC 3.49 M/uL (4.20-5.40) L 03/31/23 08:41 Hgb 8.4 g/dl (12.0-16.0) L 04/01/23 07:41 Hct 29.3 % (37.0-47.0) L 04/01/23 07:41 MCV 74.8 fL (80.0-100.0) L 03/31/23 08:41 MCH 22.3 pg (25.0-34.0) L 03/31/23 08:41 MCHC 29.9 g/dL (32.0-36.0) L 03/31/23 08:41 RDW Std Deviation 55.2 fL (36.4-46.3) H 03/31/23 08:41 RDW Coeff of Luis 21.2 % (11.5-14.5) H 03/31/23 08:41 Plt Count 209 K/uL (130-400) 03/31/23 08:41 MPV 9.2 fL (9.4-12.4) L 03/31/23 08:41 Immature Gran % (Auto) 1.8 % 03/28/23 09:00 Neut % (Auto) 80.7 % 03/28/23 09:00 Lymph % (Auto) 6.6 % 03/28/23 09:00 Haines % (Auto) 9.9 % 03/28/23 09:00 Eos % (Auto) 0.7 % 03/28/23 09:00 Baso % (Auto) 0.3 % 03/28/23 09:00 Neut # (Auto) 5.87 K/uL (1.40-6.50) 03/28/23 09:00 Lymph # (Auto) 0.48 K/uL (1.20-3.40) L 03/28/23 09:00 Haines # (Auto) 0.72 K/uL (0.11-0.59) H 03/28/23 09:00 Eos # (Auto) 0.05 K/uL (0.00-0.50) 03/28/23 09:00 Baso # (Auto) 0.02 K/uL (0.00-0.20) 03/28/23 09:00 Immature Gran # (Auto) 0.13 K/uL (0.01-0.20) 03/28/23 09:00 Absolute Nucleated RBC 0.03 K/uL (0.00-0.12) 03/28/23 09:00 Nucleated RBC % (auto) 0.4 % 03/28/23 09:00 Polychromasia 1+ 03/28/23 09:00 Anisocytosis Present 03/28/23 09:00 Tear Drop Cells 1+ 03/27/23 22:52 Ovalocytes 1+ 03/28/23 09:00 Sodium 136 mmol/L (136-145) 04/01/23 07:41 Potassium 3.6 mmol/L (3.5-5.1) 04/01/23 07:41 Chloride 107 mmol/L (98-107) 04/01/23 07:41 Carbon Dioxide 23 mmol/L (21-32) 04/01/23 07:41 Anion Gap 6 (3-11) 04/01/23 07:41 BUN 6 mg/dl (6-23) 04/01/23 07:41 Creatinine 0.47 mg/dl (0.6-1.2) L 04/01/23 07:41 Est Cr Clr Drug Dosing 120.9 ml/min 04/01/23 07:41 Est GFR ( Amer) 131.6 ml/min 04/01/23 07:41 Est GFR (Non-Af Amer) 113.6 ml/min 04/01/23 07:41 BUN/Creatinine Ratio 12.8 (10-20) 04/01/23 07:41 Glucose 104 mg/dl (70-99(Fasting)) H 04/01/23 07:41 Calcium 8.6 mg/dl (8.6-10.3) 04/01/23 07:41 Magnesium 1.5 mg/dl (1.7-2.4) L 04/01/23 07:41 Total Bilirubin 0.5 mg/dl (0.2-1.0) 03/27/23 22:52 AST 13 U/L (13-39) 03/27/23 22:52 ALT 44 U/L (7-52) 03/27/23 22:52 Alkaline Phosphatase 107 U/L (34-104) H 03/27/23 22:52 Total Protein 7.9 gm/dl (6.0-8.3) 03/27/23 22:52 Albumin 4.1 gm/dl (3.4-5.0) 03/27/23 22:52 Globulin 3.8 gm/dl (2.5-4.0) 03/27/23 22:52 Albumin/Globulin Ratio 1.1 (0.9-2) 03/27/23 22:52 Lipase 11 U/L (11-82) 03/27/23 22:52 Procalcitonin 0.15 ng/ml (0-0.5) 03/28/23 09:31 Urine Color Yellow 03/28/23 07:33 Urine Appearance Clear (Clear) 03/28/23 07:33 Urine pH 7.0 (4.5-7.5) 03/28/23 07:33 Ur Specific [place]ak[place] > 1.045 (1.000-1.030) H 03/28/23 07:33 Urine Protein 1+ (Negative) H 03/28/23 07:33 Urine Glucose (UA) Negative (Negative) 03/28/23 07:33 Urine Ketones Trace (Negative) H 03/28/23 07:33 Urine Blood Negative (Negative) 03/28/23 07:33 Urine Nitrite Positive (Negative) A 03/28/23 07:33 Urine Bilirubin Negative (Negative) 03/28/23 07:33 Urine Urobilinogen Negative (Negative) 03/28/23 07:33 Ur Leukocyte Esterase 1+ (Negative) H 03/28/23 07:33 Urine WBC (Auto) >30 /hpf (0-5) H 03/28/23 07:33 Urine RBC (Auto) 0-4 /hpf (0-4) 03/28/23 07:33 U Hyaline Cast (Auto) 10-30 /lpf (0-5) H 03/28/23 07:33 U Epithel Cells (Auto) 10-20 /lpf (0-5) H 03/28/23 07:33 Urine Bacteria (Auto) 4+ (Negative) H 03/28/23 07:33 Blood Type O Positive 03/29/23 11:53 Blood Type Recheck O Positive 03/29/23 12:24 Antibody Screen NEGATIVE 03/29/23 11:53 Crossmatch See Detail 03/29/23 11:53 Impressions Abdomen/Pelvis CT 03/27/23 23:05 Exam(s): CT ABDOMEN + PELVIS With Contrast IV Amt: 90 ML OPTIRAY 320 EXAM: CT Abdomen and Pelvis With Intravenous Contrast CLINICAL HISTORY: Reason for exam: abdominal pain; vomiting. TECHNIQUE: Axial computed tomography images of the abdomen and pelvis with intravenous contrast. CTDI is 10.84 mGy and DLP is 552.49 mGy-cm. Automated exposure control was utilized for the study. A dose lowering technique was utilized adhering to the principles of ALARA. CONTRAST: Patient received 90 ML OPTIRAY 320 of IV contrast COMPARISON: No relevant prior studies available. FINDINGS: Lung bases: Innumerable cavitating bilateral pulmonary lesions. Multifocal pneumonia concerning for septic emboli. ABDOMEN: Liver: Unremarkable. No mass. Gallbladder and bile ducts: Unremarkable. No calcified stones. No ductal dilation. Pancreas: Unremarkable. No mass. No ductal dilation. Spleen: Unremarkable. No splenomegaly. Adrenals: Unremarkable. No mass. Kidneys and ureters: Unremarkable. No solid mass. No hydronephrosis. Stomach and bowel: Marked small bowel obstruction. High-grade small bowel obstruction. No mucosal thickening. PELVIS: Appendix: No findings to suggest acute appendicitis. Bladder: Unremarkable. No mass. Reproductive: Unremarkable as visualized. ABDOMEN and PELVIS: Intraperitoneal space: Unremarkable. No free air. No significant fluid collection. Bones/joints: No acute fracture. No dislocation. Soft tissues: Unremarkable. Vasculature: See above. Lymph nodes: Unremarkable. No enlarged lymph nodes. IMPRESSION: Pneumonia with small bowel obstruction Electronically signed by: Chadd Francois MD 03/28/23 01:[address] 03/28/23 07:09 CT SCAN OF THE CHEST WITHOUT IV CONTRAST CLINICAL HISTORY: Cough. History of cervical cancer. COMPARISON STUDY: Chest CT dated 02/16/2023. TECHNIQUE: CT scan of the thorax was performed from the thoracic inlet to the upper abdomen. Images are reviewed in the axial, sagittal, and coronal planes. IV contrast was not administered for this examination as per the referring clinician. A dose lowering technique was utilized adhering to the principles of ALARA. CT DOSE: 170.36 mGy.cm FINDINGS: Thyroid: Imaged portions of the thyroid gland are normal in size and attenuation. Thoracic aorta: The thoracic aorta is normal in caliber and demonstrates standard 3-vessel arch anatomy. Heart: A right internal jugular central venous infusion port is in place. The heart is normal in size and without pericardial effusion. Lungs and pleural spaces: Extensive irregular cavitary pulmonary nodules/lesions are again seen throughout both lungs with surrounding groundglass halo/consolidation. A senior sales representative lesion in the right lower lobe has modestly increased in size from 02/16/2023. This measures up to 2.5 cm (previously measured 2.1 cm). There is no pleural effusion. The trachea and central airways are clear. Mediastinum: A mildly enlarged pretracheal node measures 11 mm in short axis. Mariya: Hilar adenopathy is suspected. The mariya are not well assessed without IV contrast. Axillae: There is no axillary lymphadenopathy. Upper abdomen: There is perihepatic ascites. Excreted IV contrast is seen in the left upper pole collecting system. A small hiatal hernia is noted. Skeletal structures: The skeletal structures are osteopenic. There is a mild superior end plate compression deformity of T5. No lytic or blastic bony lesions are seen. There are chronic/healed bilateral rib fractures. IMPRESSION: 1. Again seen are multiple scattered irregular nodules throughout both lungs, the majority of which show cavitation. These lesions show surrounding groundglass halo/consolidation. These findings likely represent metastatic cervical cancer. Superimposed pneumonia is not excluded. An atypical fungal infection, multifocal/cavitary pneumonia, and/or septic emboli could potentially appear similar. Clinical correlation will be essential. 2. There is no pleural effusion. 3. Hilar adenopathy is suspected but not well evaluated. There are mildly enlarged mediastinal nodes. 4. Perihepatic ascites. 5. Additional findings ACT 112: Negative or not required by law. Electronically signed by: Shaheen Blanca M.D. 03/28/2023 10:47 AM Small Bowel X-Ray 03/30/23 09:52 FL small bowel follow through CLINICAL HISTORY: 52 years-old Female with SBO. Follow-up study in a patient with small bowel obstruction TECHNIQUE: Oral barium was administered to the patient and serial radiographs of the abdomen were performed. COMPARISON STUDY: KUB 03/28/2023, CT 03/28/2023. FLUOROSCOPY TIME: 0 minutes. 15 images were submitted FINDINGS: Management Intern radiograph of the abdomen demonstrates multiple persistent dilated loops of air-filled small bowel scattered throughout the abdomen. No gross pneumoperitoneum. An enteric tube distal tip terminates in the stomach. Biiliac arterial grafts. Upon the administration of oral barium contrast, there is prompt opacification of the gastric lumen and proximal small bowel. Transit to the large bowel did not definitively occur through the images obtained through 6 hours. The terminal ileum is not well visualized. IMPRESSION: Persistent high-grade small bowel obstruction. Continued follow-up radiographs recommended. ACT 112: Negative or not required by law. The above report was generated using voice recognition software. It may contain grammatical, syntax or spelling errors. Electronically signed by: Al Newsome M.D. 03/31/2023 8:00 AM KUB X-Ray 03/31/23 10:10 KUB HISTORY: Acute onset abdominal pain sbo COMPARISON: Small bowel follow-through 03/30/2023, CT abdomen and pelvis 03/28/2023 FINDINGS: Distal tip of enteric tube projects over the gastric body. There is progression of the enteric contrast into the large bowel and rectum. There is persistent small bowel distention with mild distention of the large bowel. Iliac arterial grafts. Cardiomegaly with bibasilar opacities and catheter projected over the right atrium. No renal calculi. No ureteral calculi. No pneumoperitoneum or pneumatosis. No fracture. IMPRESSION: 1. Interval progression of the enteric contrast into the large bowel compatible with partial small bowel obstruction. 2. Distal tip of enteric tube projects over the gastric body. ACT 112: Negative or not required by law. The above report was generated using voice recognition software. It may contain grammatical, syntax or spelling errors. Electronically signed by: Al Newsome M.D. 03/31/2023 11:00 AM Ordered Studies 03/27/23 23:05 CT Abd and Pelvis [CT abd pelvis IV con only] Stat 03/28/23 07:09 CT chest diagnostic wo con Urgent 03/30/23 09:52 FL small bowel follow through Routine Hospital Course (1) SBO (small bowel obstruction): 52 y/o F with PMH stage IV cervical cancer with metastasis to lungs, pelvis & vertebrae, chronic thrombosis right femoral vein, BLE thrombectomy and stenting on chronic Lovenox and Pletal, right ureteral stricture, history of adjustment disorder with anxiety presents with abdominal pain and found to have small bowel obstruction. Patient was here in January with abdominal pain found to ileus and partial small bowel obstruction. Small bowel obstruction H/O radical hysterectomy --CT ABD: Suggestive of small bowel obstruction Conservative management as per surgery Appreciate surgery input Discontinue IV fluids NG tube discontinued And bowel movements Tolerated low fiber diet Plan to be discharged home today Advised to follow-up with surgery on discharge Anemia Hgb stable at 7.8 today after a likely hemoconcentrated hgb level of 10 on arrival, repeat hgb today closer to patient baseline No overt source of bleeding, will resume Lovenox this evening in setting of cervical cancer Monitor CBC closely, consented for blood product if needed, consider transfusion for hgb <7 Uncomplicated UTI--POA Urine culture growing Klebsiella Continue Levaquin Hypomagnesemia, hypokalemia Replace and monitor Stage IV cervical cancer with metastatic to lungs pelvis and vertebrae Currently on chemo Gemcitabine every two weeks. Last dose on Currently on Marinol to help reduce the use of Dilaudid On fentanyl patch Follows with oncology as outpatient Chronic DVT History of chronic DVT in right femoral vein. History of multiple lower extremity venous thrombectomy and stent procedures. Most recent seems to be in 2021 at [facility] in [place], [place] Chronic Left lower extremity lymphedema Continue Lovenox Resumed Pletal DVT Px: SQ Lovenox CODE STATUS Full Code Disposition Home Total Time Total Time Spent Total Time Spent (In Minutes): 60 minutes Discharge Plan Discharge Items Patient Disposition: Home - Self-Care Reason For Visit: SBO Discharge Diagnosis: Small bowel obstruction Urinary tract infection Suspected pneumonia Hypomagnesemia Hypokalemia Activity: Per Instructions section Exercise/Sports: Wait until after follow-up appointment Non-emergency contact: Primary Care Provider and Surgeon Call non-emergency contact if: you have any medication questions, your symptoms worsen, your pain is concerning for you and you have a fever Follow-up/Referrals: Kristyn Brown MD [Primary Care Provider] - Diet: Low Fiber Addtl Attending Provider Instructions: Follow-up with your primary care physician in 1 week Follow-up with your surgeon Dr. Foster as advised. --Complete the antibiotic course levofloxacin for 2 more days as prescribed. -- Your Lovenox dose is decreased to 65mg SQ twice a day based on your weight. Discussed with your physician for further adjustment of dose as needed. --Also discussed with your primary care physician/oncologist for adjustment of your pain medications which likely contributing to your small bowel obstruction. Seek immediate medical attention if your symptoms reoccur or worsen Please take all medications as instructed on discharge list below. Please call if you have any questions or problems. You can reach a [facility] hospitalist on duty at [facility] 24 hours a day by calling [phone] Pending Studies at Discharge: No Stand-Alone Forms: My [facility], Smoking Cessation Medications and DC Order Prescriptions: New levofloxacin 750 mg Tablet 750 mg PO DAILY@1100 Qty: 2 0RF Continued sennosides [senna] 8.6 mg Tablet 8.6 mg PO DAILY PRN (Reason: Constipation) prednisone 20 mg tablet 20 mg PO DAILY dronabinol 2.5 mg capsule 2.5 mg PO BID duloxetine 60 mg capsule,delayed release(DR/EC) 60 mg PO DAILY magnesium oxide 400 mg magnesium Tablet 400 mg PO DAILY polyethylene glycol 3350 [Miralax] 17 gram Powder In Packet 17 g PO DAILY oxybutynin chloride 10 mg tablet extended release 24hr 10 mg PO PM cilostazol 50 mg tablet 50 mg PO BID melatonin 3 mg Tablet 3 mg PO HS olanzapine 2.5 mg tablet 2.5 mg PO HS gabapentin 100 mg capsule 200 mg PO BID cyclosporine [Restasis] 0.05 % dropperette 1 drp OPB BID fentanyl 12 mcg/hr patch 72 hour 12 mcg transdermal Q72H Rx Instructions: due to be changed tomarrow Tyrvaya 0.03 mg/spray spray, metered, non-aerosol 1 spray INTRANASAL BID dicyclomine 10 mg capsule 10 mg PO TID PRN (Reason: abd pain) potassium chloride 20 mEq tablet extended release 20 meq PO DAILY Qty: 7 0RF Changed enoxaparin 100 mg/mL syringe 65 mg subcut BID Qty: 10 0RF Discharge Orders: Discharge Order (Routine); Ordered 04/01/23 Ordered By: Nicholas Fung Admission Data Admit Date/Time: 03/28/23 04:59 Attending Provider: Nicholas Fung Admit Provider: Ray Cardenas Primary Care Provider: Kristyn Brown Other Providers: Ray Cardenas; Claudio Asencio; Shayne Briones; Madelaine Walters; Gutierrez Lewis; Aden Fermin; Xiao Jarrett; Faith Au; Derrick Coon Jr; Arturo Godinez; Fabio Ellsworth; Hollie Álvarez; Susie Torres; Maciej Burgess; Miki Mills; Janet Gant; Faith Sanchez; Chiqui Hutchison; Spike Tom; John Willis; Armand Walters; Roger Seay; Brittany Jernigan; Richmond Wang; Reba Linn; Stella Vivas; Becky Roman; Hollie Driver; Herminia Salcedo; Ajit Lopez; Mo Reeves; Sharlene Morrison; [facility],Alejandro Scott Jr
== END 2023-04-01 14:41 | disposition home or self-care (01) | DRG 388 ==
LOC: ED 22:13 → 3E 03-28 04:59 → SUATTDRO 03-28 04:59 → 3E 03-28 05:40

== ENCOUNTER 2023-04-25 17:23 | Inpatient (IN) ==
--- NOTE | 2023-04-25 17:31 | Emergency Department Note ---
Impression & Plan SBO (small bowel obstruction), Metastatic disease, Nausea & vomiting, Hypomagnesemia ED Provider Note NAME: NOELLE MCNEIL AGE: 52 SEX: F ARRIVES VIA: Ambulance INFORMANT: Patient ED PROVIDER(S): Peterson Dietz MD CHIEF COMPLAINT: Abdominal pain, n/v PLAN: Disposition: Admit MEDICAL DECISION MAKING: The patient is a pleasant 52-year-old woman with a past medical history of metastatic cervical cancer with history of recurring small bowel obstructions related to her metastatic disease who presents to the emergency department via EMS and then accompanied by her for acute onset of abdominal pain with nausea and vomiting reminiscent of prior bowel obstructions. She reports feeling well prior to onset of symptoms and denies any recent fevers, chills, cough, congestion, diarrhea or urinary symptoms. She reports her stools have been soft normally anyway due to bowel regimens to help prevent bowel obstructions. She reports she did move her bowels even after the onset of pain but understands this may have been distal to where she may have obstructed. On my evaluation the patient is uncomfortable no acute distress, afebrile with heart rate in the 120s in setting of her discomfort and vital signs otherwise stable. She appears clinically dry. Her abdomen is distended and exhibits generalized tenderness without guarding or rebound. There is a non-specific well-demarcated band of light erythema across the lower abdomen towards the left flank, which the patient only noticed upon her examination for the first time but did not feel it was present prior to coming to the emergency department. This is of unclear significance at this time. WBC 13.6 K, nonspecific. H/H similar to prior values. Platelets within normal limits. Chemistry with bicarb of 19 consistent patient's clinically dry appearance as his BUN/creatinine of 30.7. Magnesium 1.4 electrolytes otherwise unremarkable. LFTs are unremarkable. Lipase not elevated. Procalcitonin is within normal limits. hCG negative. UA without evidence of infection with epithelial cells present. Respiratory BioFire was negative. CT of the abdomen pelvis was performed and demonstrates evidence of small bowel obstruction. Case was discussed with general surgery, Davon Coon PA-C with Dr. Foster, general surgery on-call. Appreciate consultation recommendations. Recommends conservative management with nasogastric tube and IV fluid hydration. Case was discussed with Dr. Robin, [facility] who will evaluate the patient for admission. Triage Nursing notes reviewed and agree them. Prior/external medical records reviewed Vital Signs: reviewed Differential diagnosis: Gastroenteritis, food borne illness, infections, appendicitis, diverticulitis, inflammatory bowel disease, obstruction, GI bleed, biliary pathology, volvulus, as well as other pathologies. ER treatment provided: See below. Diagnostics interpreted by me: ECG: Sinus tachycardia, 157 bpm, no ectopy, ST and TW abnormality, no overt ST elevation or depression. Cardiac Monitoring: An order for continuous cardiac monitoring was placed and demonstrated Sinus tachycardia, 157 bpm, no ectopy Laboratory studies: See below Imaging studies: See below Consultation(s): Davon Coon PA-C with Dr. Foster, general surgery Dr. Robin, [facility] hospitalist HPI: The patient is a pleasant 52-year-old woman with a past medical history of metastatic cervical cancer with history of recurring small bowel obstructions related to her metastatic disease who presents to the emergency department via EMS and then accompanied by her for acute onset of abdominal pain with nausea and vomiting reminiscent of prior bowel obstructions. She reports feeling well prior to onset of symptoms and denies any recent fevers, chills, cough, congestion, diarrhea or urinary symptoms. She reports her stools have been soft normally anyway due to bowel regimens to help prevent bowel obstructions. She reports she did move her bowels even after the onset of pain but understands this may have been distal to where she may have obstructed. ROS: See above HPI for pertinent positives & negatives. A total of 10 systems reviewed and were otherwise negative. VITALS:See Below PHYSICAL EXAMINATION: GENERAL: Awake, alert, uncomfortable-appearing, in no distress HENT: Normocephalic, atraumatic. Oropharynx with dry mucous membranes and otherwise unremarkable. EYES: Normal conjunctiva. Sclera non-icteric. NECK: Supple. No nuchal rigidity. FROM. No JVD. RESPIRATORY: Clear to auscultation. CARDIAC: Tachycardic rate, normal rhythm. Extremities warm and well perfused. Pulses equal. ABDOMEN: Abdomen is distended and exhibits generalized tenderness without guarding or rebound. RECTAL: Deferred. MUSCULOSKELETAL: Chest examination reveals no tenderness. The back is symmetrical on inspection without obvious abnormality. There is no CVA tenderness to palpation. No joint edema. LOWER EXTREMITIES: Calves are equal size bilaterally and non-tender. No edema. No discoloration. NEURO: Normal sensorium. No sensory or motor deficits noted. SKIN: No jaundice noted. Non-specific well-demarcated band of light erythema across the lower abdomen towards the left flank. Peterson Dietz MD Past Med/Surg History Medical History (Updated 04/26/23 @ 07:27 by Peterson Dietz MD) SBO (small bowel obstruction) Chronic deep vein thrombosis (DVT) Primary cervical cancer with metastasis to other site Surgical History History of vascular surgery history bilateral lower extremity thrombectomy and stenting History of appendectomy History of hysterectomy Family History Father Cancer Other No significant family history Social History Smoking Status: Never smoker Hx Alcohol Use: No Hx Substance Use: No Preferred Language: Mongolian Communication Ability: Effective Special Education Educational Assistant Required: No Beliefs That Will Affect Care: None marital status: Current Living Situation: Spouse current occupational status: disabled How many Children do You have: 0 Feels Safe at Home: Yes Assistive Devices: Cane Allergies Allergies Allergy/AdvReac Type Severity Reaction Status Date / Time cephalexin [From Keflex] Allergy Rash Verified 04/16/23 10:21 Home Meds Home Medications Medication Instructions Recorded Confirmed cilostazol 50 mg tablet 50 mg PO BID 02/16/23 04/25/23 cyclosporine 0.05 % eye drops in a 1 drp OPB BID 02/16/23 04/25/23 dropperette (Restasis) fentanyl 12 mcg/hr transdermal 12 mcg transdermal Q72H 02/16/23 04/25/23 patch gabapentin 100 mg capsule 200 mg PO BID 02/16/23 04/25/23 melatonin 3 mg tablet 3 mg PO HS 02/16/23 04/25/23 olanzapine 2.5 mg tablet 2.5 mg PO HS 02/16/23 04/25/23 oxybutynin chloride 10 mg 10 mg PO PM 02/16/23 04/25/23 tablet,extended release 24 hr polyethylene glycol 3350 17 gram 17 g PO DAILY 02/16/23 04/25/23 oral powder packet (Miralax) varenicline 0.03 mg/spray nasal 1 spray intranasal BID 02/16/23 04/25/23 spray (Tyrvaya) dronabinol 2.5 mg capsule 2.5 mg PO BID 03/28/23 04/25/23 duloxetine 60 mg capsule,delayed 60 mg PO QAM 03/28/23 04/25/23 release magnesium oxide 400 mg PO QAM 03/28/23 04/25/23 sennosides 8.6 mg tablet (senna) 8.6 mg PO DAILY PRN Constipation 03/28/23 04/25/23 dicyclomine 20 mg tablet 20 mg PO TID PRN Abdominal 04/25/23 04/25/23 Discomfort enoxaparin 100 mg/mL subcutaneous 100 mg subcut BID 04/25/23 04/25/23 syringe potassium chloride 20 mEq 20 meq PO QAM 04/25/23 04/25/23 tablet,extended release prednisone 20 mg tablet 40 mg PO QAM 04/25/23 04/25/23 Results & Data (ED) Vital Signs Vital Signs - 24 hr 04/25/23 17:29 04/25/23 17:51 04/25/23 19:02 Temperature 37.2 C Temperature Source Oral Pulse Rate 156 H 153 H Pulse Rate [Finger] 145 H Respiratory Rate 17 18 Respiratory Effort / Characteristics Non-Labored Spontaneous Respiratory Depth Normal Respiratory Pattern Regular Blood Pressure 134/88 Blood Pressure [Right Arm] 119/67 Blood Pressure Mean 103 Blood Pressure Mean [Right Arm] 84 Blood Pressure Position Semi-fowlers Blood Pressure Position [Right Arm] Semi-fowlers Pulse Oximetry 94 91 Oxygen Delivery Method Room Air Room Air Sepsis Recent Fever Within 48 Hours No Sepsis New/Unexplained Change in Mental Status No Sepsis Action Taken by Nursing No Action Required 04/25/23 21:19 Temperature Temperature Source Pulse Rate 128 H Pulse Rate [Finger] Respiratory Rate Respiratory Effort / Characteristics Respiratory Depth Respiratory Pattern Blood Pressure Blood Pressure [Right Arm] Blood Pressure Mean Blood Pressure Mean [Right Arm] Blood Pressure Position Blood Pressure Position [Right Arm] Pulse Oximetry Oxygen Delivery Method Sepsis Recent Fever Within 48 Hours Sepsis New/Unexplained Change in Mental Status Sepsis Action Taken by Nursing Laboratory Data Attestation: I reviewed the patient's lab results. 04/26/23 03:05 04/26/23 03:05 Lab Results 01/24/24 01/24/24 Range/Units 17:57 20:56 WBC 13.65 H (4.8-10.8) K/ul RBC 4.40 (4.20-5.40) M/uL Hgb 9.6 L (12.0-16.0) g/dl Hct 32.1 L (37.0-47.0) % MCV 73.0 L (80.0-100.0) fL MCH 21.8 L (25.0-34.0) pg MCHC 29.9 L (32.0-36.0) g/dL RDW Std Deviation 49.9 H (36.4-46.3) fL RDW Coeff of Luis 21.4 H (11.5-14.5) % Plt Count 368 (130-400) K/uL MPV 9.6 (9.4-12.4) fL Immature Gran % (Auto) 1.2 % Neut % (Auto) 91.1 % Lymph % (Auto) 3.7 % Pope % (Auto) 3.8 % Eos % (Auto) 0.1 % Baso % (Auto) 0.1 % Neut # (Auto) 12.42 H (1.40-6.50) K/uL Lymph # (Auto) 0.51 L (1.20-3.40) K/uL Pope # (Auto) 0.52 (0.11-0.59) K/uL Eos # (Auto) 0.02 (0.00-0.50) K/uL Baso # (Auto) 0.02 (0.00-0.20) K/uL Immature Gran # (Auto) 0.16 (0.01-0.20) K/uL Absolute Nucleated RBC 0.27 H (0.00-0.12) K/uL Nucleated RBC % (auto) 2.0 % Poikilocytosis Present Anisocytosis Present Tear Drop Cells 1+ Ovalocytes 1+ PT 13.8 H (9.0-12.0) Seconds INR 1.3 H (0.9-1.1) APTT > 139 H* (21-31) Seconds PTT Ratio > 4.9 Sodium 138 (136-145) mmol/L Potassium 3.6 (3.5-5.1) mmol/L Chloride 106 (98-107) mmol/L Carbon Dioxide 19 L (21-32) mmol/L Anion Gap 13 H (3-11) BUN 23 (6-23) mg/dl Creatinine 0.75 (0.6-1.2) mg/dl Est Cr Clr Drug Dosing 65.1 ml/min Est GFR ( Amer) 106.2 ml/min Est GFR (Non-Af Amer) 91.6 ml/min BUN/Creatinine Ratio 30.7 H (10-20) Glucose 119 H (70-99(Fasting)) mg/dl Estimat Average Glucose 100 mg/dl Hemoglobin A1c 5.1 (4.5-5.6) % Lactate 1.4 (0.4-2.0) mmol/L Calcium 8.6 (8.6-10.3) mg/dl Magnesium 1.4 L (1.7-2.4) mg/dl Total Bilirubin 0.4 (0.2-1.0) mg/dl AST 10 L (13-39) U/L ALT 20 (7-52) U/L Alkaline Phosphatase 99 (34-104) U/L Total Protein 6.4 (6.0-8.3) gm/dl Albumin 3.7 (3.4-5.0) gm/dl Globulin 2.7 (2.5-4.0) gm/dl Albumin/Globulin Ratio 1.4 (0.9-2) Lipase 23 (11-82) U/L Procalcitonin 0.39 (0-0.5) ng/ml HCG, Qual Negative (Negative) Adenovirus (PCR) Not Detected (NotDetected) B. pertussis DNA (PCR) Not Detected (NotDetected) B.parapertussis DNA PCR Not Detected (NotDetected) C. pneumoniae DNA (PCR) Not Detected (NotDetected) Coronavirus OC43 (PCR) Not Detected (NotDetected) Coronavirus HKU1 (PCR) Not Detected (NotDetected) Coronavirus 229E (PCR) Not Detected (NotDetected) SARS-CoV-2 (PCR) Not Detected (NotDetected) Coronavirus NL63 (PCR) Not Detected (NotDetected) Human Metapneumovir PCR Not Detected (NotDetected) Influenza Type A (PCR) Not Detected (NotDetected) Influenza Type B (PCR) Not Detected (NotDetected) M. pneumoniae (PCR) Not Detected (NotDetected) Parainfluenza 1 (PCR) Not Detected (NotDetected) Parainfluenza 2 (PCR) Not Detected (NotDetected) Parainfluenza 3 (PCR) Not Detected (NotDetected) Parainfluenza 4 (PCR) Not Detected (NotDetected) RSV (PCR) Not Detected (NotDetected) Entero/Rhino (PCR) Not Detected (NotDetected) Administered Medications Fentanyl (Fentanyl 12 Mcg/Hr Tdsy) 12 mcg TD Q72H SAE Stop: 05/09/23 22:14 Last Admin: 04/26/23 00:10 Dose: 12 mcg Documented By: MARTHA Promethazine HCl 6.25 mg/ (Sodium Chloride) 50.25 mls @ 201 mls/hr IV Q6H PRN PRN Reason: Nausea And Vomiting Stop: 05/25/23 21:39 Last Infusion: 04/26/23 01:35 Dose: Infused Documented By: motorcycle maker: 04/25/23 22:45 Dose: 201 mls/hr Documented By: Heparin Sodium/Dextrose (Heparin Sodium/Dextrose) 25,000 units in 500 mls @ 17 mls/hr IV .Q24H SAE; Protocol Stop: 05/26/23 03:59 Last Admin: 04/26/23 04:30 Dose: 850 units/hr, 17 mls/hr Documented By: MARTHA Co-signed By: NIKI Lactated Ringer's (Lr) 1,000 mls @ 250 mls/hr IV .Q4H ONE Stop: 04/26/23 09:59 Last Admin: 04/26/23 05:35 Dose: 250 mls/hr Documented By: MARTHA Lidocaine (Lidocaine 5% 1 Patch) 1 patch TD HS SAE Stop: 05/25/23 23:29 Last Admin: 04/25/23 23:41 Dose: 1 patch Documented By: MARTHA Silver (Order Awaiting Action [Cyclosporine [Restasis] 0.05 % Dropperette]) 1 each N/A QS [facility] Stop: 05/26/23 00:00 Last Admin: 04/26/23 01:09 Dose: Not Given Documented By: MARTHA Silver (Check Fentanyl Patch Placement) 1 each N/A QS [facility] Stop: 05/26/23 00:00 Last Admin: 04/26/23 00:19 Dose: 1 each Documented By: MARTHA Silver (Fentanyl Patch Remove & Waste) 1 each N/A Q3D [facility] Stop: 05/25/23 22:14 Last Admin: 04/26/23 00:16 Dose: 1 each Documented By: MARTHA Co-signed By: KANDACE Silver (Order Awaiting Action [Varenicline [Tyrvaya] 0.03 Mg/[place], Metered, Non-Aeroso]) 1 each N/A QS [facility] Stop: 05/26/23 00:00 Last Admin: 04/26/23 01:09 Dose: Not Given Documented By: MARTHA Discontinued Medications Dexamethasone (Dexamethasone Sod Inj 4 Mg/Ml Vial) 4 mg IV NOW STA Stop: 04/26/23 02:20 Last Admin: 04/26/23 02:45 Dose: 4 mg Documented By: MARTHA Dexamethasone (Dexamethasone Sod Inj 4 Mg/Ml Vial) 4 mg IV NOW ONE Stop: 04/26/23 04:46 Last Admin: 04/26/23 05:09 Dose: 4 mg Documented By: MARTHA Sodium Chloride (Nss) 1,000 mls @ 999 mls/hr IV .Q1H1M ONE Stop: 04/25/23 18:29 Last Infusion: 04/25/23 19:05 Dose: Infused Documented By: Admin: 04/25/23 17:59 Dose: 999 mls/hr Documented By: AB Acetaminophen (Ofirmev) 1,000 mg in 100 mls @ 400 mls/hr IV NOW STA Stop: 04/25/23 18:53 Last Infusion: 04/25/23 19:05 Dose: Infused Documented By: Admin: 04/25/23 18:49 Dose: 400 mls/hr Documented By: AB Famotidine (Pepcid 20mg Iv Push) 20 mg in 5 mls @ 2.5 mls/min IV NOW STA Stop: 04/25/23 18:40 Last Admin: 04/25/23 18:50 Dose: 2.5 mls/min Documented By: AB Sodium Chloride (Nss) 1,000 mls @ 999 mls/hr IV .Q1H1M ONE Stop: 04/25/23 19:48 Last Infusion: 04/25/23 22:08 Dose: Infused Documented By: Admin: 04/25/23 19:00 Dose: 999 mls/hr Documented By: AB Potassium Chloride (K Rohan / Wtr) 10 meq in 100 mls @ 100 mls/hr IV Q1H [facility] Stop: 04/26/23 00:59 Last Infusion: 04/26/23 03:37 Dose: Infused Documented By: Admin: 04/26/23 01:50 Dose: 100 mls/hr Documented By: Infusion: 04/26/23 01:50 Dose: Infused Documented By: motorcycle maker: 04/26/23 01:06 Dose: 100 mls/hr Documented By: Infusion: 04/26/23 00:45 Dose: Infused Documented By: motorcycle maker: 04/25/23 23:45 Dose: 100 mls/hr Documented By: Infusion: 04/25/23 23:37 Dose: Infused Documented By: motorcycle maker: 04/25/23 22:37 Dose: 100 mls/hr Documented By: AB Lactated Ringer's (Lr) 1,000 mls @ 500 mls/hr IV .Q2H ONE Stop: 04/25/23 22:53 Last Infusion: 04/26/23 02:37 Dose: 0 mls/hr Documented By: motorcycle maker: 04/25/23 22:33 Dose: 200 mls/hr Documented By: AB Magnesium Sulfate/Dextrose (Magnesium Sulfate / D5w) 1 gm in 100 mls @ 50 mls/hr IV Q2H [facility] Stop: 04/26/23 03:44 Last Admin: 04/26/23 05:34 Dose: 50 mls/hr Documented By: Infusion: 04/26/23 05:34 Dose: Infused Documented By: Infusion: 04/26/23 02:37 Dose: 0 mls/hr Documented By: motorcycle maker: 04/26/23 01:49 Dose: 50 mls/hr Documented By: MED Metronidazole (Flagyl) 500 mg in 100 mls @ 100 mls/hr IV NOW STA; Protocol Stop: 04/26/23 01:22 Last Infusion: 04/26/23 03:37 Dose: Infused Documented By: Admin: 04/26/23 02:34 Dose: 100 mls/hr Documented By: MED Lorazepam 0.25 mg/ Syringe 0.25 mls @ 2 mls/min IV NOW STA Stop: 04/26/23 02:22 Last Admin: 04/26/23 02:47 Dose: 2 mls/min Documented By: MARTHA Albumin Human (Albumin 25%) 25 gm in 100 mls @ 50 mls/hr IV ONE ONE Stop: 04/26/23 04:42 Last Infusion: 04/26/23 07:13 Dose: Infused Documented By: Admin: 04/26/23 03:34 Dose: 50 mls/hr Documented By: KANDI Sodium Chloride (Nss) 1,000 mls @ 999 mls/hr IV .Q1H1M ONE Stop: 04/26/23 05:30 Last Infusion: 04/26/23 07:14 Dose: Infused Documented By: Admin: 04/26/23 05:34 Dose: 999 mls/hr Documented By: MARTHA Ioversol (Optiray 320 500ml) 92 ml IV ONCE ONE Stop: 04/25/23 19:59 Last Admin: 04/25/23 19:59 Dose: 92 ml Documented By: PRACHI Ketorolac Tromethamine (Ketorolac Tromethamine 15 Mg/Ml Vial) 10 mg IV NOW ONE Stop: 04/25/23 21:51 Last Admin: 04/25/23 22:33 Dose: 10 mg Documented By: Ketorolac Tromethamine (Ketorolac Tromethamine 15 Mg/Ml Vial) 10 mg IV NOW ONE Stop: 04/26/23 00:46 Last Admin: 04/26/23 01:52 Dose: 10 mg Documented By: MARTHA Metoprolol Tartrate (Metoprolol Tartrate 1 Mg/Ml Vial) 2.5 mg IV NOW STA Stop: 04/26/23 02:22 Last Admin: 04/26/23 02:43 Dose: Not Given Documented By: MARTHA Metoprolol Tartrate (Metoprolol Tartrate 1 Mg/Ml Vial) 2.5 mg IV NOW STA Stop: 04/26/23 03:36 Last Admin: 04/26/23 05:40 Dose: Not Given Documented By: MARTHA Morphine Sulfate (Morphine Sulfate 4 Mg/Ml 1 Ml Carp\Vial) 4 mg IV NOW STA Stop: 04/25/23 18:49 Last Admin: 04/25/23 18:57 Dose: 4 mg Documented By: Morphine Sulfate (Morphine Sulfate 2 Mg/Ml Carp) 2 mg IV NOW STA Stop: 04/26/23 00:48 Last Admin: 04/26/23 01:20 Dose: 2 mg Documented By: MARTHA Ondansetron HCl (Ondansetron Inj 2 Mg/Ml 2 Ml Vial) 4 mg IV NOW STA Stop: 04/25/23 18:40 Last Admin: 04/25/23 18:50 Dose: 4 mg Documented By: AB Imaging Data Radiologist's Impression: Abdomen/Pelvis CT 04/25/23 18:48 Exam(s): CT ABDOMEN + PELVIS With Contrast IV Amt: 92 ml optiray 320 EXAM: CT Abdomen and Pelvis With Intravenous Contrast CLINICAL HISTORY: Reason for exam: metastatic ca, h/o sbo, ap, n/v. TECHNIQUE: Axial computed tomography images of the abdomen and pelvis with intravenous contrast. CTDI is 10.36 mGy and DLP is 495.36 mGy-cm. Automated exposure control was utilized for the study. A dose lowering technique was utilized adhering to the principles of ALARA. CONTRAST: Patient received 92 ml optiray 320 of IV contrast COMPARISON: CT abdomen/pelvis on 03/28/2023. FINDINGS: Lung bases: Patchy consolidations with cavitations throughout the lower lungs may represent infectious/inflammatory process. Component of neoplastic process is not excluded. ABDOMEN: Liver: Unremarkable. No mass. Gallbladder and bile ducts: Prior cholecystectomy. Probable postcholecystectomy ductal ectasia. Pancreas: Unremarkable. No mass. No ductal dilation. Spleen: Unremarkable. No splenomegaly. Adrenals: Unremarkable. No mass. Kidneys and ureters: Unremarkable. No solid mass. No hydronephrosis. Stomach and bowel: Dilated fluid and gas-filled small bowel loops, concerning for small bowel obstruction with transition point in the right lower quadrant. Fluid in the rectum. Decompressed colon limits evaluation. No mucosal thickening. PELVIS: Appendix: Appendix is not visualized and may be surgically absent. Bladder: Mild prominence of the bladder wall is nonspecific. Please correlate with urinalysis if concerned for cystitis. Reproductive: Prior hysterectomy. Significantly atrophic right kidney. Subperitoneal space: Small amount of presacral fluid. ABDOMEN and PELVIS: Intraperitoneal space: Small amount of ascites. Question nodularity in the lower abdomen which could be secondary to peritoneal carcinomatosis. Questionable abnormal soft tissue abscess involving small bowel, colon, and the right aspect of the bladder. Bones/joints: Nonspecific similar lucent lesions in the lower thoracic and lumbar spine. Question osseous metastases versus hemangiomas. No acute fracture. No dislocation. Soft tissues: Possible injection changes in the anterior abdominal wall. . Vasculature: Phleboliths in the pelvis. Common iliac artery and right external iliac artery stents. No abdominal aortic aneurysm. Lymph nodes: Unremarkable. No enlarged lymph nodes. IMPRESSION: 1. Patchy consolidations with cavitations throughout the lower lungs may represent infectious/inflammatory process. Component of neoplastic process is not excluded. 2. Dilated fluid and gas-filled small bowel loops, concerning for small bowel obstruction with transition point in the right lower quadrant. 3. Mild prominence of the bladder wall is nonspecific. Please correlate with urinalysis if concerned for cystitis. 4. Nonspecific similar lucent lesions in the lower thoracic and lumbar spine. Question osseous metastases versus hemangiomas. 5. Fluid in the rectum. Decompressed colon limits evaluation. 6. Small amount of ascites. Question nodularity in the lower abdomen which could be secondary to peritoneal carcinomatosis. Questionable abnormal soft tissue abscess involving small bowel, colon, and the right aspect of the bladder. Electronically signed by: Aris Petit M.D. 04/25/23 20:28 PM Discharge Plan Visit Data Chief Complaint: Abdominal Pain ED Provider: Peterson Dietz Discharge Problem: SBO (small bowel obstruction), Metastatic disease, Nausea & vomiting, Hypomagnesemia Patient Disposition: Admitted As Inpatient Discharge Instructions Interventions: ED Discharge Assessment Last Done: 04/25/23 21:58 Discharge Problem: Metastatic disease Qualifiers: Area of secondary neoplastic involvement: unspecified site Qualified Code(s): C 79.9 - Secondary malignant neoplasm of unspecified site Nausea & vomiting Qualifiers: Vomiting type: unspecified Qualified Code(s): R11.2 - Nausea with vomiting, unspecified
[2023-04-25] MEDS: SODIUM CHLORIDE 0.9% 1,000 ML IV ONE ×2 (17:59→19:00)
[2023-04-25 18:15] LABS: Hematocrit (blood only) 32.1 % (37.0-47.0); Hemoglobin 9.6 g/dl (12.0-16.0); Mean Corpuscular Hemoglobin 21.8 pg (25.0-34.0); Mean Corpuscular Hgb Conc 29.9 g/dL (32.0-36.0); Mean Platelet Volume 9.6 fL (9.4-12.4); Nucleated RBC # (auto) 0.27 K/uL (0.00-0.12); Platelet Count 368 K/uL (130-400); RDW Coefficient of Variation 21.4 % (11.5-14.5); RDW Standard Deviation 49.9 fL (36.4-46.3); White Blood Count 13.65 K/ul (4.8-10.8)
[2023-04-25 18:25] LABS: Albumin Level 3.7 gm/dl (3.4-5.0); Bilirubin,Total 0.4 mg/dl (0.2-1.0); Calcium 8.6 mg/dl (8.6-10.3); Potassium 3.6 mmol/L (3.5-5.1)
[2023-04-25 18:28] LABS: Pregnancy Test, Serum Negative (Negative)
[2023-04-25 18:31] LABS: Albumin Globulin Ratio 1.4 (0.9-2); BUN Creatinine Ratio 30.7 (10-20); Creatinine Clr Calc Pharmacy 65.1 ml/min; Est GFR (African American) 106.2 ml/min; Est GFR (Non-African American) 91.6 ml/min; Globulin 2.7 gm/dl (2.5-4.0); Total Protein 6.4 gm/dl (6.0-8.3)
[2023-04-25 18:48] LABS: Anisocytosis Present; Basophils # (auto) 0.02 K/uL (0.00-0.20); Basophils % (auto) 0.1 %; Eosinophils # (auto) 0.02 K/uL (0.00-0.50); Eosinophils % (auto) 0.1 %; Immature Granulocytes # (auto) 0.16 K/uL (0.01-0.20); Immature Granulocytes % (auto) 1.2 %; Lymphocytes # (auto) 0.51 K/uL (1.20-3.40); Lymphocytes % (auto) 3.7 %; Monocytes # (auto) 0.52 K/uL (0.11-0.59); Monocytes % (auto) 3.8 %; Neutrophils # (auto) 12.42 K/uL (1.40-6.50); Neutrophils % (auto) 91.1 %; Ovalocytes 1+; Poikilocytosis Present; Tear Drop Cells 1+
[2023-04-25] MEDS: ACETAMINOPHEN 1,000 MG/100 ML VIAL IV STA (18:49)
[2023-04-25] MEDS: FAMOTIDINE 20MG IV PUSH 20 MG/5 ML SYR IV STA (18:50)
[2023-04-25] MEDS: ONDANSETRON INJ 2 MG/ML 2 ML VIAL IV STA (18:50)
[2023-04-25] MEDS: MoRPHine SULFATE 4 MG/ML 1 ML CARP\\VIAL IV STA (18:57)
[2023-04-25] MEDS: OPTIRAY 320 500ml IV ONE (19:59)
--- NOTE | 2023-04-25 20:28 | CT Scan Report ---
Exam(s): CT ABDOMEN + PELVIS With Contrast IV Amt: 92 ml optiray 320 EXAM: CT Abdomen and Pelvis With Intravenous Contrast CLINICAL HISTORY: Reason for exam: metastatic ca, h/o sbo, ap, n/v. TECHNIQUE: Axial computed tomography images of the abdomen and pelvis with intravenous contrast. CTDI is 10.36 mGy and DLP is 495.36 mGy-cm. Automated exposure control was utilized for the study. A dose lowering technique was utilized adhering to the principles of ALARA. CONTRAST: Patient received 92 ml optiray 320 of IV contrast COMPARISON: CT abdomen/pelvis on 03/28/2023. FINDINGS: Lung bases: Patchy consolidations with cavitations throughout the lower lungs may represent infectious/inflammatory process. Component of neoplastic process is not excluded. ABDOMEN: Liver: Unremarkable. No mass. Gallbladder and bile ducts: Prior cholecystectomy. Probable postcholecystectomy ductal ectasia. Pancreas: Unremarkable. No mass. No ductal dilation. Spleen: Unremarkable. No splenomegaly. Adrenals: Unremarkable. No mass. Kidneys and ureters: Unremarkable. No solid mass. No hydronephrosis. Stomach and bowel: Dilated fluid and gas-filled small bowel loops, concerning for small bowel obstruction with transition point in the right lower quadrant. Fluid in the rectum. Decompressed colon limits evaluation. No mucosal thickening. PELVIS: Appendix: Appendix is not visualized and may be surgically absent. Bladder: Mild prominence of the bladder wall is nonspecific. Please correlate with urinalysis if concerned for cystitis. Reproductive: Prior hysterectomy. Significantly atrophic right kidney. Subperitoneal space: Small amount of presacral fluid. ABDOMEN and PELVIS: Intraperitoneal space: Small amount of ascites. Question nodularity in the lower abdomen which could be secondary to peritoneal carcinomatosis. Questionable abnormal soft tissue abscess involving small bowel, colon, and the right aspect of the bladder. Bones/joints: Nonspecific similar lucent lesions in the lower thoracic and lumbar spine. Question osseous metastases versus hemangiomas. No acute fracture. No dislocation. Soft tissues: Possible injection changes in the anterior abdominal wall. . Vasculature: Phleboliths in the pelvis. Common iliac artery and right external iliac artery stents. No abdominal aortic aneurysm. Lymph nodes: Unremarkable. No enlarged lymph nodes. IMPRESSION: 1. Patchy consolidations with cavitations throughout the lower lungs may represent infectious/inflammatory process. Component of neoplastic process is not excluded. 2. Dilated fluid and gas-filled small bowel loops, concerning for small bowel obstruction with transition point in the right lower quadrant. 3. Mild prominence of the bladder wall is nonspecific. Please correlate with urinalysis if concerned for cystitis. 4. Nonspecific similar lucent lesions in the lower thoracic and lumbar spine. Question osseous metastases versus hemangiomas. 5. Fluid in the rectum. Decompressed colon limits evaluation. 6. Small amount of ascites. Question nodularity in the lower abdomen which could be secondary to peritoneal carcinomatosis. Questionable abnormal soft tissue abscess involving small bowel, colon, and the right aspect of the bladder. Electronically signed by: Aris Petit M.D. 04/25/23 20:28 PM
--- NOTE | 2023-04-25 20:57 | Surgery Consultation ---
Date of Consultation April 25, 2023 Assessment & Plan (1) SBO (small bowel obstruction): I discussed with the treating emergency room physician. The patient is being admitted on the hospitalist service. From surgical perspective we recommend the following: Implement n.p.o. status Provide IV fluid for hydration Follow serial labs Provide analgesics Provide antiemetics The treating emergency room physician has ordered an NG tube to be placed. I agree with this modality. We will continue monitor the patient's progress with the treatment plan noted above with additional recommendations to follow based on her clinical course as unfolds History of Present Illness Reason for Consultation: Small bowel History of Present Illness This is a 52-year-old female with an underlying history of cervical cancer. The patient has undergone a radical hysterectomy in 2013 as well as a concomitant appendectomy. The patient also reports that in 2016 she underwent pelvic radiat ion. The patient notes that she has a history of multiple small bowel obstructions most recently in March 2023. During this admission she was successfully treated with conservative treatment plan including NG tube decompression, bowel rest, and IV fluids. Surgical intervention was not required. Patient is that she was doing well upon discharge from the a for mentioned admission in March however at approximately 3:30 AM on 04/25/2023 she developed some periumbilical abdominal pain along with nausea and vomiting. Patient notes that her bowels have been moving throughout the day but have been loose. She is not passing much in the way of flatus since arrival to the emergency department. She does note that her most recent episode of emesis was at approximate 5:00 PM which was approximately 4 hours ago. She denies any fevers, shakes, or chills Since arrival to hospital the patient has had labs and imaging which independent reviewed. CT scan of the abdomen and pelvis showed the patient had dilated fluid and gas-filled small bowel loops concerning for small bowel obstruction. There is a transition point noted in the right lower quadrant. Small amount of ascites was noted. There is also concern for possible osseous metastases on the study Labs included CBC her white blood cell count was elevated at 13.6. Hemoglobin and hematocrit 9.6 and 32.1. Platelet count was normal. Chemistry profile showed sodium and potassium along with the BUN and creatinine were normal. There is no elevation of LFTs or lipase. At the time of my interview the patient was resting in bed and she did not appear to be in any distress Allergies Allergy/AdvReac Type Severity Reaction Status Date / Time cephalexin [From [employer]] Allergy Rash Verified 04/16/23 10:21 Home Medications Medication Instructions Recorded Confirmed Type cilostazol 50 mg tablet 50 mg PO BID 02/16/23 04/25/23 History cyclosporine 0.05 % eye drops in a 1 drp OPB BID 02/16/23 04/25/23 History dropperette (Restasis) fentanyl 12 mcg/hr transdermal 12 mcg transdermal Q72H 02/16/23 04/25/23 History patch gabapentin 100 mg capsule 200 mg PO BID 02/16/23 04/25/23 History melatonin 3 mg tablet 3 mg PO HS 02/16/23 04/25/23 History olanzapine 2.5 mg tablet 2.5 mg PO HS 02/16/23 04/25/23 History oxybutynin chloride 10 mg 10 mg PO PM 02/16/23 04/25/23 History tablet,extended release 24 hr polyethylene glycol 3350 17 gram 17 g PO DAILY 02/16/23 04/25/23 History oral powder packet (Miralax) varenicline 0.03 mg/spray nasal 1 spray intranasal BID 02/16/23 04/25/23 History spray (Tyrvaya) dronabinol 2.5 mg capsule 2.5 mg PO BID 03/28/23 04/25/23 History duloxetine 60 mg capsule,delayed 60 mg PO QAM 03/28/23 04/25/23 History release magnesium oxide 400 mg PO QAM 03/28/23 04/25/23 History sennosides 8.6 mg tablet (senna) 8.6 mg PO DAILY PRN Constipation 03/28/23 04/25/23 History dicyclomine 20 mg tablet 20 mg PO TID PRN Abdominal 04/25/23 04/25/23 History Discomfort enoxaparin 100 mg/mL subcutaneous 100 mg subcut BID 04/25/23 04/25/23 History syringe potassium chloride 20 mEq 20 meq PO QAM 04/25/23 04/25/23 History tablet,extended release prednisone 20 mg tablet 40 mg PO QAM 04/25/23 04/25/23 History Patient History Medical History (Updated 04/26/23 @ 13:53 by Kassie Josue MD, [facility]) SBO (small bowel obstruction) Chronic deep vein thrombosis (DVT) Primary cervical cancer with metastasis to other site Surgical History History of vascular surgery history bilateral lower extremity thrombectomy and stenting History of appendectomy History of hysterectomy Family History Father Cancer Other No significant family history Social History Smoking Status: Never smoker Hx Alcohol Use: No Hx Substance Use: No Preferred Language: Armenian Communication Ability: Effective Dryerman/Woman Required: No Beliefs That Will Affect Care: None marital status: Current Living Situation: Spouse current occupational status: disabled How many Children do You have: 0 Other Information That Helps Us Care for You: No Feels Safe at Home: Yes Safety Concerns: Feels Safe At This Time Assistive Devices: Cane Review of Systems Constitutional: no fever and no chills Ear, Nose, Mouth, Throat: no hearing loss Respiratory: no cough and no dyspnea Cardiovascular: no chest pain Gastrointestinal: as per Subjective / HPI Genitourinary: no dysuria Musculoskeletal: no back pain Integumentary: no rash Physical Exam Constitutional: WD/WN, vitals as above Eyes: no conjunctival abnormality ENMT: Ears: no hearing impairment and no external ear abnormality Mouth: no oropharynx abnormality Neck: trachea midline Respiratory: normal respiratory effort; no respiratory distress and no labored breathing Cardiovascular: Rate/Rhythm: regular rate, regular rhythm and + tachycardic Gastrointestinal (Abdomen): Bowel sounds are hypoactive. Abdomen has mild to moderate distention. It is overall soft and nonrigid. There is some tympany to percussion. There is some generalized pain with palpation in the periumbilical region but no rebound tenderness or guarding Musculoskeletal: No calf tenderness noted. The patient had marked lower extremity swelling in the left lower extremity (patient notes that this is a chronic condition secondary to lymphedema) Neurologic: moves all extremities Psychiatric: A+Ox3, euthymic affect Results & Data Vital Signs (Past 12 Hours) Vital Signs Temp Pulse Pulse Resp BP BP Pulse Ox 04/25/23 19:02 145 H 18 119/67 91 04/25/23 17:51 153 H 04/25/23 17:29 37.2 C 156 H 17 134/88 94 O2 Del Method 04/25/23 19:02 Room Air 04/25/23 17:51 04/25/23 17:29 Room Air PG Care Time/CCT Total # of Minutes Spent Total Time Spent with Patient: Total time spent is greater than 50% in coordination of care (as documented) at patient's floor/unit and/or counseling patient: Coding Level of Care Code 06766 OFFICE CONSULT LVL M Diagnoses SBO (small bowel obstruction) K56.609
[2023-04-25 21:20] LABS: Estimated Average Glucose 100 mg/dl; Hemoglobin A1C 5.1 % (4.5-5.6)
--- NOTE | 2023-04-25 21:36 | History & Physical Report ---
Date of Service April 25, 2023 Assessment & Plan (1) Tachycardia: Plan: Secondary to recurrent SBO History of chronic pain on fentanyl patch hx metastatic cervical cancer status post surgery/radiation therapy ongoing chemotherapy Diarrheal illness rule out C. difficile Anxiety contributory hx chronic steroid Rx for lung mets inflammation as per patient history DVT status post surgery on therapeutic Lovenox and Pletal Rx chronic anemia, hemoglobin better than baseline likely secondary to hemoconcentration Steroid-induced hyperglycemia rule out DM PCU given tachycardia IVF Bowel rest, continue NGT decompression Judicious narcotic use given SBO Anxiolytic as needed Hold weight-based Lovenox given potential need for procedure, IV heparin interim General surgery consultation Re: Recurrent SBO (Patient already seen at the ER by provider.) Stool C. difficile, Flagyl 1 dose now for presumptive C. difficile given possible sepsis Check hemoglobin A1c DVT prophylaxis. IV heparin will Lovenox on hold Full code Text document was generated using [employer] voice recognition software. It may contain grammatical or spelling errors. Kindly contact undersigned for clarification of any documentation item in question. History of Present Illness Chief Complaint: Abdominal pain Primary Care Provider: Kristyn Brown MD History obtained from patient and records. Medical history significant for metastatic cervical cancer status post surgery/radiation therapy ongoing chemotherapy, chronic steroid Rx for lung mets inflammation as per patient, history DVT status post surgery on therapeutic Lovenox and Pletal Rx, chronic anemia (baseline hemoglobin of 9), chronic pain on fentanyl patch, anxiety disorder. Monthly admissions since January 2023 for recurrent bowel obstruction resolved with conservative management. Patient noted more intense achy abdominal pain today. Loose stools with bilious emesis. No chest pain, no SOB, no cough, no headache symptoms. Patient consulted ER for evaluation. NGT inserted for SBO. Heart rate 1 20-1 50s at the ER. 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 Allergies Allergy/AdvReac Type Severity Reaction Status Date / Time cephalexin [From [employer]] Allergy Rash Verified 04/16/23 10:21 Home Medications Medication Instructions Recorded Confirmed Type cilostazol 50 mg tablet 50 mg PO BID 02/16/23 04/25/23 History cyclosporine 0.05 % eye drops in a 1 drp OPB BID 02/16/23 04/25/23 History dropperette (Restasis) fentanyl 12 mcg/hr transdermal 12 mcg transdermal Q72H 02/16/23 04/25/23 History patch gabapentin 100 mg capsule 200 mg PO BID 02/16/23 04/25/23 History melatonin 3 mg tablet 3 mg PO HS 02/16/23 04/25/23 History olanzapine 2.5 mg tablet 2.5 mg PO HS 02/16/23 04/25/23 History oxybutynin chloride 10 mg 10 mg PO PM 02/16/23 04/25/23 History tablet,extended release 24 hr polyethylene glycol 3350 17 gram 17 g PO DAILY 02/16/23 04/25/23 History oral powder packet (Miralax) varenicline 0.03 mg/spray nasal 1 spray intranasal BID 02/16/23 04/25/23 History spray (Tyrvaya) dronabinol 2.5 mg capsule 2.5 mg PO BID 03/28/23 04/25/23 History duloxetine 60 mg capsule,delayed 60 mg PO QAM 03/28/23 04/25/23 History release magnesium oxide 400 mg PO QAM 03/28/23 04/25/23 History sennosides 8.6 mg tablet (senna) 8.6 mg PO DAILY PRN Constipation 03/28/23 04/25/23 History dicyclomine 20 mg tablet 20 mg PO TID PRN Abdominal 04/25/23 04/25/23 History Discomfort enoxaparin 100 mg/mL subcutaneous 100 mg subcut BID 04/25/23 04/25/23 History syringe potassium chloride 20 mEq 20 meq PO QAM 04/25/23 04/25/23 History tablet,extended release prednisone 20 mg tablet 40 mg PO QAM 04/25/23 04/25/23 History Past Med/Surg History Medical History (Updated 04/26/23 @ 08:18 by Thompson Robin MD) SBO (small bowel obstruction) Chronic deep vein thrombosis (DVT) Primary cervical cancer with metastasis to other site Surgical History History of vascular surgery history bilateral lower extremity thrombectomy and stenting History of appendectomy History of hysterectomy Family History Father Cancer Other No significant family history Social History Smoking Status: Never smoker Hx Alcohol Use: No Hx Substance Use: No Preferred Language: Sinhala Communication Ability: Effective Table Tender Required: No Beliefs That Will Affect Care: None marital status: Current Living Situation: Spouse current occupational status: disabled How many Children do You have: 0 Other Information That Helps Us Care for You: No Feels Safe at Home: Yes Safety Concerns: Feels Safe At This Time Assistive Devices: Cane Review of Systems Review of Systems: As per HPI, all other systems reviewed and negative Physical Exam Physical Exam: GENERAL: uncomfortable, anxious, chronically ill, no respiratory distress SKIN: Pallor, warm HEENT: Pale palpebral conjunctivae, no ptosis, dry buccal mucosa, NGT in place NECK : Supple, no tenderness CHEST : Decreased breath sounds, no tenderness HEART : Tachycardic, no obvious murmurs ABDOMEN: Some distention, central abdominal tenderness EXTREMITIES : Minimal LE swelling, no LE tenderness, no other conspicuous deformities noted NEUROLOGIC : Coherent, no facial asymmetry, no other gross focality Results & Data Results & Data Vital Signs (Past 12 Hours) Vital Signs Temp Pulse Pulse Resp BP BP Pulse Ox 04/25/23 21:19 128 H 04/25/23 19:02 145 H 18 119/67 91 04/25/23 17:51 153 H 04/25/23 17:29 37.2 C 156 H 17 134/88 94 O2 Del Method 04/25/23 21:19 04/25/23 19:02 Room Air 04/25/23 17:51 04/25/23 17:29 Room Air Laboratory Results Laboratory Results WBC 13.65 K/ul (4.8-10.8) H 04/25/23 17:57 RBC 4.40 M/uL (4.20-5.40) 04/25/23 17:57 Hgb 9.6 g/dl (12.0-16.0) L 04/25/23 17:57 Hct 32.1 % (37.0-47.0) L 04/25/23 17:57 MCV 73.0 fL (80.0-100.0) L 04/25/23 17:57 MCH 21.8 pg (25.0-34.0) L 04/25/23 17:57 MCHC 29.9 g/dL (32.0-36.0) L 04/25/23 17:57 RDW Std Deviation 49.9 fL (36.4-46.3) H 04/25/23 17:57 RDW Coeff of Luis 21.4 % (11.5-14.5) H 04/25/23 17:57 Plt Count 368 K/uL (130-400) 04/25/23 17:57 MPV 9.6 fL (9.4-12.4) 04/25/23 17:57 Immature Gran % (Auto) 1.2 % 04/25/23 17:57 Neut % (Auto) 91.1 % 04/25/23 17:57 Lymph % (Auto) 3.7 % 04/25/23 17:57 Nolan % (Auto) 3.8 % 04/25/23 17:57 Eos % (Auto) 0.1 % 04/25/23 17:57 Baso % (Auto) 0.1 % 04/25/23 17:57 Neut # (Auto) 12.42 K/uL (1.40-6.50) H 04/25/23 17:57 Lymph # (Auto) 0.51 K/uL (1.20-3.40) L 04/25/23 17:57 Nolan # (Auto) 0.52 K/uL (0.11-0.59) 04/25/23 17:57 Eos # (Auto) 0.02 K/uL (0.00-0.50) 04/25/23 17:57 Baso # (Auto) 0.02 K/uL (0.00-0.20) 04/25/23 17:57 Immature Gran # (Auto) 0.16 K/uL (0.01-0.20) 04/25/23 17:57 Absolute Nucleated RBC 0.27 K/uL (0.00-0.12) H 04/25/23 17:57 Nucleated RBC % (auto) 2.0 % 04/25/23 17:57 Poikilocytosis Present 04/25/23 17:57 Anisocytosis Present 04/25/23 17:57 Tear Drop Cells 1+ 04/25/23 17:57 Ovalocytes 1+ 04/25/23 17:57 Sodium 138 mmol/L (136-145) 04/25/23 17:57 Potassium 3.6 mmol/L (3.5-5.1) 04/25/23 17:57 Chloride 106 mmol/L (98-107) 04/25/23 17:57 Carbon Dioxide 19 mmol/L (21-32) L 04/25/23 17:57 Anion Gap 13 (3-11) H 04/25/23 17:57 BUN 23 mg/dl (6-23) 04/25/23 17:57 Creatinine 0.75 mg/dl (0.6-1.2) 04/25/23 17:57 Est Cr Clr Drug Dosing 65.1 ml/min 04/25/23 17:57 Est GFR ( Amer) 106.2 ml/min 04/25/23 17:57 Est GFR (Non-Af Amer) 91.6 ml/min 04/25/23 17:57 BUN/Creatinine Ratio 30.7 (10-20) H 04/25/23 17:57 Glucose 119 mg/dl (70-99(Fasting)) H 04/25/23 17:57 Estimat Average Glucose 100 mg/dl 04/25/23 17:57 Hemoglobin A1c 5.1 % (4.5-5.6) 04/25/23 17:57 Lactate 1.4 mmol/L (0.4-2.0) 04/25/23 20:56 Calcium 8.6 mg/dl (8.6-10.3) 04/25/23 17:57 Total Bilirubin 0.4 mg/dl (0.2-1.0) 04/25/23 17:57 AST 10 U/L (13-39) L 04/25/23 17:57 ALT 20 U/L (7-52) 04/25/23 17:57 Alkaline Phosphatase 99 U/L (34-104) 04/25/23 17:57 Total Protein 6.4 gm/dl (6.0-8.3) 04/25/23 17:57 Albumin 3.7 gm/dl (3.4-5.0) 04/25/23 17:57 Globulin 2.7 gm/dl (2.5-4.0) 04/25/23 17:57 Albumin/Globulin Ratio 1.4 (0.9-2) 04/25/23 17:57 Lipase 23 U/L (11-82) 04/25/23 17:57 Procalcitonin 0.39 ng/ml (0-0.5) 04/25/23 17:57 HCG, Qual Negative (Negative) 04/25/23 17:57 Impressions Abdomen/Pelvis CT 04/25/23 18:48 Exam(s): CT ABDOMEN + PELVIS With Contrast IV Amt: 92 ml optiray 320 EXAM: CT Abdomen and Pelvis With Intravenous Contrast CLINICAL HISTORY: Reason for exam: metastatic ca, h/o sbo, ap, n/v. TECHNIQUE: Axial computed tomography images of the abdomen and pelvis with intravenous contrast. CTDI is 10.36 mGy and DLP is 495.36 mGy-cm. Automated exposure control was utilized for the study. A dose lowering technique was utilized adhering to the principles of ALARA. CONTRAST: Patient received 92 ml optiray 320 of IV contrast COMPARISON: CT abdomen/pelvis on 03/28/2023. FINDINGS: Lung bases: Patchy consolidations with cavitations throughout the lower lungs may represent infectious/inflammatory process. Component of neoplastic process is not excluded. ABDOMEN: Liver: Unremarkable. No mass. Gallbladder and bile ducts: Prior cholecystectomy. Probable postcholecystectomy ductal ectasia. Pancreas: Unremarkable. No mass. No ductal dilation. Spleen: Unremarkable. No splenomegaly. Adrenals: Unremarkable. No mass. Kidneys and ureters: Unremarkable. No solid mass. No hydronephrosis. Stomach and bowel: Dilated fluid and gas-filled small bowel loops, concerning for small bowel obstruction with transition point in the right lower quadrant. Fluid in the rectum. Decompressed colon limits evaluation. No mucosal thickening. PELVIS: Appendix: Appendix is not visualized and may be surgically absent. Bladder: Mild prominence of the bladder wall is nonspecific. Please correlate with urinalysis if concerned for cystitis. Reproductive: Prior hysterectomy. Significantly atrophic right kidney. Subperitoneal space: Small amount of presacral fluid. ABDOMEN and PELVIS: Intraperitoneal space: Small amount of ascites. Question nodularity in the lower abdomen which could be secondary to peritoneal carcinomatosis. Questionable abnormal soft tissue abscess involving small bowel, colon, and the right aspect of the bladder. Bones/joints: Nonspecific similar lucent lesions in the lower thoracic and lumbar spine. Question osseous metastases versus hemangiomas. No acute fracture. No dislocation. Soft tissues: Possible injection changes in the anterior abdominal wall. . Vasculature: Phleboliths in the pelvis. Common iliac artery and right external iliac artery stents. No abdominal aortic aneurysm. Lymph nodes: Unremarkable. No enlarged lymph nodes. IMPRESSION: 1. Patchy consolidations with cavitations throughout the lower lungs may represent infectious/inflammatory process. Component of neoplastic process is not excluded. 2. Dilated fluid and gas-filled small bowel loops, concerning for small bowel obstruction with transition point in the right lower quadrant. 3. Mild prominence of the bladder wall is nonspecific. Please correlate with urinalysis if concerned for cystitis. 4. Nonspecific similar lucent lesions in the lower thoracic and lumbar spine. Question osseous metastases versus hemangiomas. 5. Fluid in the rectum. Decompressed colon limits evaluation. 6. Small amount of ascites. Question nodularity in the lower abdomen which could be secondary to peritoneal carcinomatosis. Questionable abnormal soft tissue abscess involving small bowel, colon, and the right aspect of the bladder. Electronically signed by: Aris Petit M.D. 04/25/23 20:28 PM Diagnostic Findings Chest x-ray as per my interpretation bilateral opacities EKG as per my interpretation :Rate 160, sinus tachycardia, RAD, septal infarct, T wave abnormalities inferior and anterolateral leads
[2023-04-25 21:37] LABS: Partial Thromboplastin Ratio > 4.9; Partial Thromboplastin Time > 139 Seconds (21-31)
[2023-04-25 21:42] LABS: Magnesium 1.4 mg/dl (1.7-2.4)
[2023-04-25 22:10] LABS: Adenovirus PCR Not Detected (NotDetected); Bordetella parapertussis PCR Not Detected (NotDetected); Bordetella pertussis PCR Not Detected (NotDetected); Chlamydia pneumoniae PCR Not Detected (NotDetected); Coronavirus 229E PCR Not Detected (NotDetected); Coronavirus CoV-2 (COVID19)PCR Not Detected (NotDetected); Coronavirus HKU1 PCR Not Detected (NotDetected); Coronavirus NL63 PCR Not Detected (NotDetected); Coronavirus OC43PCR Not Detected (NotDetected); Human Metapneumovirus PCR Not Detected (NotDetected); Influenza A PCR Not Detected (NotDetected); Influenza B PCR Not Detected (NotDetected); Mycoplasma pneumoniae PCR Not Detected (NotDetected); Parainfluenza Virus 1 PCR Not Detected (NotDetected); Parainfluenza Virus 2 PCR Not Detected (NotDetected); Parainfluenza Virus 3 PCR Not Detected (NotDetected); Parainfluenza Virus 4 PCR Not Detected (NotDetected); Respiratory Syncytial VirusPCR Not Detected (NotDetected); Rhinovirus/Enterovirus PCR Not Detected (NotDetected)
[2023-04-25] MEDS: LACTATED RINGER'S 1,000 ML IV ONE (22:33)
[2023-04-25] MEDS: KETOROLAC TROMETHAMINE 15 MG/ML VIAL IV ONE (22:33)
[2023-04-25] MEDS: POTASSIUM CHLORIDE / WTR 10 MEQ/100 ML PLCT IV SCH (22:37)
[2023-04-25] MEDS: PROMETHAZINE HCL 6.25 MG in SODIUM CHLORIDE 0.9% 50 ML IV PRN (22:45)
[2023-04-25] MEDS: LIDOCAINE 5% 1 PATCH TD SCH (23:41)
[2023-04-25 23:57] LABS: INR 1.3 (0.9-1.1); Prothrombin Time 13.8 Seconds (9.0-12.0)
[2023-04-26] MEDS: fentaNYL 12 MCG/HR TDSY TD SCH (00:10)
[2023-04-26] MEDS: CHECK fentaNYL PATCH PLACEMENT SCH (00:19)
[2023-04-26 00:21] LABS: Appearance Urine Clear (Clear); Bacteria Urine Automated Negative (Negative); Bilirubin Urine Negative (Negative); Blood Urine Negative (Negative); Color Urine Yellow; Epithelial Cell Urine Auto >30 /lpf (0-5); Glucose Urine UA Negative (Negative); Ketones Urine Negative (Negative); Leukocyte Esterase Urine Negative (Negative); Nitrite Urine Negative (Negative); Protein Urine 1+ (Negative); Specific Gravity Urine > 1.045 (1.000-1.030); Urobilinogen Urine Negative (Negative)
[2023-04-26 00:37] LABS: Mucus Urine Present (None Prsent); RBC Urine Automated 0-4 /hpf (0-4)
[2023-04-26] MEDS ORDERED: traMADol HCL 50 MG TABLET PO PRN (00:47)
[2023-04-26] MEDS: MoRPHine SULFATE 2 MG/ML CARP IV STA (01:20)
[2023-04-26] MEDS ORDERED: LORazepam 0.25 MG in SYRINGE 0.125 ML IV PRN (01:23)
[2023-04-26] MEDS: MAGNESIUM SULFATE / D5W 1 GM/100 ML BAG IV SCH (01:49)
[2023-04-26] MEDS: KETOROLAC TROMETHAMINE 15 MG/ML VIAL IV ONE (01:52)
[2023-04-26] MEDS: metroNIDAZOLE 500 MG/100 ML BAG IV STA (02:34)
[2023-04-26] MEDS: METOPROLOL TARTRATE 1 MG/ML VIAL IV STA ×2 (02:43→05:40)
[2023-04-26] MEDS: DEXAMETHASONE SOD INJ 4 MG/ML VIAL IV STA (02:45)
[2023-04-26] MEDS: LORazepam 0.25 MG in SYRINGE 0.125 ML IV STA (02:47)
[2023-04-26] MEDS ORDERED: LACTATED RINGER'S 1,000 ML IV ONE (03:00)
[2023-04-26] MEDS: ALBUMIN 25% 25 GM/100 ML VIAL IV ONE (03:34)
[2023-04-26] MEDS ORDERED: Heparin IV Adult Wt-Based Standard *NO* INITIAL Bolus Protocol IV SCH (03:44)
[2023-04-26 03:57] LABS: Calcium 8.4 mg/dl (8.6-10.3); Creatinine Clr Calc Pharmacy 37.6 ml/min; Est GFR (African American) 54.6 ml/min; Est GFR (Non-African American) 47.1 ml/min; Magnesium 1.5 mg/dl (1.7-2.4)
[2023-04-26 04:09] LABS: INR 1.2 (0.9-1.1); Partial Thromboplastin Ratio 0.9; Partial Thromboplastin Time 26 Seconds (21-31); Prothrombin Time 12.5 Seconds (9.0-12.0)
[2023-04-26 04:25] LABS: Hematocrit (blood only) 32.9 % (37.0-47.0); Hemoglobin 9.3 g/dl (12.0-16.0); Mean Corpuscular Hemoglobin 21.2 pg (25.0-34.0); Mean Corpuscular Hgb Conc 28.3 g/dL (32.0-36.0); Mean Corpuscular Volume 74.9 fL (80.0-100.0); Mean Platelet Volume 9.8 fL (9.4-12.4); Nucleated RBC # (auto) 0.31 K/uL (0.00-0.12); Nucleated RBC % (auto) 15.2 %; Platelet Count 285 K/uL (130-400); RDW Coefficient of Variation 21.7 % (11.5-14.5); RDW Standard Deviation 52.7 fL (36.4-46.3); Red Blood Count 4.39 M/uL (4.20-5.40); White Blood Count 2.04 K/ul (4.8-10.8)
[2023-04-26 04:29] LABS: Anisocytosis Present; Basophils # (auto) 0.01 K/uL (0.00-0.20); Basophils % (auto) 0.5 %; Echinocytes 1+; Eosinophils # (auto) 0.04 K/uL (0.00-0.50); Immature Granulocytes # (auto) 0.01 K/uL (0.01-0.20); Immature Granulocytes % (auto) 0.5 %; Lymphocytes # (auto) 0.19 K/uL (1.20-3.40); Lymphocytes % (auto) 9.3 %; Monocytes # (auto) 0.07 K/uL (0.11-0.59); Monocytes % (auto) 3.4 %; Neutrophils # (auto) 1.72 K/uL (1.40-6.50); Neutrophils % (auto) 84.3 %; Ovalocytes 2+; Polychromasia 2+; Tear Drop Cells 1+
[2023-04-26] MEDS: HEPARIN SODIUM/DEXTROSE 25,000 UNITS/500 ML BAG IV SCH (04:30)
[2023-04-26] MEDS: DEXAMETHASONE SOD INJ 4 MG/ML VIAL IV ONE (05:09)
[2023-04-26] MEDS: SODIUM CHLORIDE 0.9% 1,000 ML IV ONE (05:34)
[2023-04-26] MEDS: LACTATED RINGER'S 1,000 ML IV ONE (05:35)
--- NOTE | 2023-04-26 06:00 | Communication Note ---
Date of Service: April 26, 2023 52 YOF admitted overnight by medicine team. Asked to see patient for ICU transfer secondary to persistent tachycardia, worsening hypoxia, and hypotensive despite volume replacement. Full consult to follow Patient history of stage IV cervical cancer metastatic to lung, pelvic, and bone. Thrombosis of the right femoral vein for which she is on Lovenox 100mg BID at home. She presented to the [facility] for acute onset of abdominal pain and nausea/vomiting. Diagnosed with SBO. Currently she has received what appears to be 4L of crystalloid and 25% albumin x1. Pain control, NGT, and Electrolyte replacement for her low magnesium. She has also been given Decadron for "stress" by primary team as she is on Prednisone at home. Patient is awake and conversant. She states that her pain is better controlled and her nausea is improved since arrival to the hospital. She also states that she feels very thirsty, and had a brief moment of panic earlier because of her oxygen mask, but currently feels better. She remains with tachycardia, oxygen needs, worsening of renal indices despite volume resuscitation - She is with persistent patchy ground glass opacities as well as cavitations on her lung windows obtained on CT abdomen/Pelvis today as well as her CT scan of chest back in January- she reports she has never seen dietetics professor or had mario biopsied. She is with port placement. - Will discuss with Pulmonary/Critical Care Attending this morning regarding therapeutics/biopsy/infectious process - SBO with transition point in RLQ- NGT in place, pain control, IV hydration - Continue with aggressive electrolyte replacement - Stress dose steroids would continue with either 150mg Hydrocortisone divided or Continue Prednisone 40mg daily- She has already been given Decadron on admission by Medicine team. - In regards to her Tachycardia and Hypoxia- concern for Pulmonary Embolism with possible failure of Lovenox- As her renal indices have increased overnight will obtain Doppler of her lower bilateral extremities for DVT evaluation- optimally could obtain CTA of the chest, however would like to discuss with patient in regards preceived risk of contrast induced nephropathy, although this has been evlauted with no risk- Adrian Vega MR et Al- Journal Critical Care 2019 ([id number]) - As well patient is already ordered for heparin infusion in alli of the above. Colten QUIÑONEZ ([facility]-)
--- NOTE | 2023-04-26 06:44 | Communication Note ---
Date of Service: April 26, 2023 Patient hypotensive, tachycardic and hypoxemic. IVF bolus and Decadron given for possible adrenal insufficiency. ED discharge planner requesting ICU evaluation due to abnormal vital signs and current need for one-to-one care.
--- NOTE | 2023-04-26 07:08 | XRay Report ---
XR chest 1V portable CLINICAL HISTORY: sob low o2 COMPARISON STUDY: Chest CT March 28, 2023. Chest radiograph April 25, 2023. FINDINGS: Tip of nasogastric tube is within the body of the stomach. Multiple loops of dilated small bowel are noted. These are better depicted on CT of the abdomen and pelvis April 25, 2023. There is no pneumothorax or pleural effusion. Multiple focal airspace opacities within the lungs are again no presley. Several of these are cavitary. Right basilar opacity has mildly increased. Cardiomediastinal jose houette is unremarkable. Right internal jugular [id number] remains in place. IMPRESSION: 1. Extensive multifocal cavitary airspace opacities , slightly increased since prior exam. Given clin ical history, the findings may reflect metastatic cervical cancer. Cavitary pneumonia, septic emboli and fungal infection are also within the differential. 2. Satisfactory positioning of the nasogastric tube. Redemonstration small bowel dilatation suggestiv e of a small bowel obstruction. ACT 112: Negative or not required by law. Electronically signed by: Roderick Dykes M.D. 04/26/2023 7:06 AM
--- NOTE | 2023-04-26 07:16 | XRay Report ---
XR chest 1V not portable CLINICAL HISTORY: NG tube placement COMPARISON STUDY: Chest CT March 28, 2023. FINDINGS: Tip of nasogastric tube is within the gastric fundus. Multiple dilated loops of small bowel are again noted. Right internal jugular [id number] is in place. There is no pneumothorax or pleur al effusion. Multifocal cavitary opacities within the lungs IMPRESSION: 1. Satisfactory positioning of the nasogastric tube. Findings suggestive of a small bowel obstruction . 2. Extensive multifocal cavitary opacities within the lungs, slightly increased since prior exam. Giv en the clinical history, metastatic cervical cancer is favored. An infectious process could appear si milar. ACT 112: Negative or not required by law. Electronically signed by: Roderick Dykes M.D. 04/26/2023 7:15 AM
[2023-04-26] MEDS: ACETAMINOPHEN 1,000 MG/100 ML VIAL IV PRN (07:48)
--- NOTE | 2023-04-26 07:53 | Hospitalist Progress Note ---
Date of Service April 26, 2023 Assessment & Plan (1) Sepsis: (2) Bacteremia due to Gram-positive bacteria: (3) Immunocompromised patient: Plan Ms. Whitfield is a 52 year old female with PMH stage IV cervical cancer with metastasis to lungs, pelvis & vertebrae, chronic thrombosis right femoral vein, BLE thrombectomy and stenting on chronic Lovenox and Pletal, right ureteral stricture, history of adjustment disorder with anxiety presented with abdominal pain and found to have small bowel obstruction on CT imaging with transition point in RLQ. Patient initially admitted on 04/25 for management of SBO; however, course complicated by hypoxia, tachycardia, and tenuous hemodynamics. Patient transferred to ICU for close hemodynamic monitoring. Labs revealed GPC bacteremia and physical exam this morning concerning for possible zoster infection of left groin as well as acute on chronic LLE swelling and erythema. Patient started on stress dose hydrocortisone, IV Vanc/Zosyn/Acyclovir. ID consulted, appreciate further recommendations. ICU managment ongoing. #Sepsis 2/2 GPC bacteremia POA #Dermatomal rash c/f varicella #Immunocompromised Blood Cultures 04/25 07/04 + GOC, UA noninfectious appearance Source port v left leg cellulitis 2/2 shingles MRSA pending -Ordered ECHO given port access and GPC bacteremia -Ordered repeat blood cultures 2100, plan for 1 site to be port -Added Vanco -Continue Zosyn -Continue IVF and hemodynamic monitoring per ICU protocol -Goal MAP >65 -Continue Hydrocortisone 50mg q8h for sepsis -Further recommendations per intensivists -PJP work up ordered iso chronic corticosteroids -Acyclovir 470mg x1 -[facility] ID consult for further recommendations -Airborne and contact 2/2 GPC and concern for VZV #Acute hypoxic respiratory failure, multifactorial -iso sepsis, cavitary lesions? septic emboli given GPC blood cultures, known metastatic lung disease ; potential pneumonitis -Currently on 5L oxymask -Wean oxygen per ICU protocol -PJP sputum culture per ICU, ordered #Sinus Tachycardia Reports baseline HR in low 100s, ranging 120-150s on admission Likely multifactorial, hypoxia/sepsis Continue telemetry and hemodynamic monitoring in ICU #Hypomagnesemia -Lytes per ICU protocol #Acute on chronic small bowel obstructions Recent admission managed conservatively, follows OP Gen Surgery on 04/16 regarding symptoms and encouaged to hydrate, trial of bentyl CT ABD transition point in RLQ -Last BM 04/25, NGT placed 04/25 -Surgery following at this time -NPO with IVF hydration at this time #KARIN -Cr up to 1.3 this am, likely secondary to sepsis -Aggressive IVF and hemodynamic monitoring -Avoid nephrotoxic agents #Primary cervical cancer with metastatic disease #Hypercoagulability 2/2 metastatic disease #Chronic R fem thrombosis, BLE thrombectomy #Acute on Chronic Left lower extremity Lymphedema #Chronic Anticoagulation Know mets to lungs, pelvis, vertebra CT scan with cavitary lesions, increased since imaging obtained 03/28 Last treatment: 04/17~, received gemcitabine q2 weeks in [place] [facility] -Continue fentanyl patch, duloxetine 60mg, Gabapentin 200mg BID -Continue -Heparin drip in interim -Continue cilostazol 50mg BID, monitor platelets on CBC -Dopplers with chronic nonocclusive thrombus in left LLE, extent "improved from prior" per read of report #Severe protein calorie malnutrition -BMI 17.81, iso chronic illness/metastatic disease 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, orbitread operator when able to take po Diet: NPO, NGT in place, advance per surgery Analgeisa: home pain regimen, CTM Sedation: Not required at this time DVT: Heparin drip HOB 30 degrees Glycemic control per ICU Bowel Regimen when able to take PO, per surgery recommendations Ulcer PPX IV PPI Deescalate abx per ID recommendations PT/OT when tolerated Admitted to ICU, CTM iso Sepsis, dispoTBD Admission and Anticipated Discharge Date Admission Date: April 25, 2023 Subjective Patient evaluated in ED. Patient reports improvement in abdominal pain, but otherwise reports notable LLE pain, in particular behind the left knee cap. She states that she feels short of breath, which is new since presenting to ED; though she has known mets to lungs, she denies any overt SOB/dyspnea/chronic oxygen requirements. Patient denies subjective fevers, chills. She states she last had her chemo nathan atment last week without issue. She denies chest pain, palpitations at this time. She reports last BM 04/25, no issues with urination. She states her LLE is chronically swollen, however, today it is much more so and "feels strange" She notes she cannot tolerate NC well 2/2 septum issues, and finally feels comfortable on oxymask Physical Exam Constitutional: laying supine, appears weak, frail Respiratory: diminished breath sounds on exam, no crackles/wheezing appreciated on 5L Oxymask Cardiovascular: tachycardic, regular , no apparent murmur Gastrointestinal (Abdomen): mild distention, no overt tendreness on exam BS+ high pitched Musculoskeletal: moving all extremities appropriately, LLE edema nonpitting with diffuse erythema and calor Skin: skin discoloration in LLQ, tender Results & Data Results & Data Vital Signs (Past 12 Hours) Vital Signs Temp Pulse Pulse Pulse Resp BP BP 04/26/23 07:26 124 H 04/26/23 07:20 124 H 26 H 114/67 04/26/23 04:53 136 H 26 H 96/62 L 04/26/23 03:32 149 H 40 H 116/69 04/26/23 03:32 04/26/23 02:43 154 H 85/63 L 04/26/23 02:38 37.1 C 155 H 42 H 85/63 L 04/26/23 01:55 157 H 04/25/23 23:30 148 H 30 H 04/25/23 21:19 128 H Pulse Ox Pulse Ox O2 Del Method O2 Del Method O2 Flow Rate O2 Flow Rate 04/26/23 07:26 04/26/23 07:20 96 Oxymask 5 04/26/23 04:53 95 Oxymask 5 04/26/23 03:32 92 Oxymask 5 04/26/23 03:32 92 Oxymask 5 04/26/23 02:43 04/26/23 02:38 92 Oxymask 4 04/26/23 01:55 04/25/23 23:30 04/25/23 21:19 Laboratory Results Short CBC 04/25/23 04/26/23 Range/Units 17:57 03:05 WBC 13.65 H 2.04 L D (4.8-10.8) K/ul Hgb 9.6 L 9.3 L (12.0-16.0) g/dl Hct 32.1 L 32.9 L (37.0-47.0) % Plt Count 368 285 (130-400) K/uL BMP 04/25/23 04/26/23 17:57 03:05 Sodium 138 136 Potassium 3.6 4.0 Chloride 106 108 H Carbon Dioxide 19 L 15 L BUN 23 26 H Creatinine 0.75 1.30 H D Glucose 119 H 103 H Calcium 8.6 8.4 L Liver Function 04/25/23 Range/Units 17:57 Total Bilirubin 0.4 (0.2-1.0) mg/dl AST 10 L (13-39) U/L ALT 20 (7-52) U/L Alkaline Phosphatase 99 (34-104) U/L Albumin 3.7 (3.4-5.0) gm/dl Urine 04/26/23 Range/Units 00:04 Urine Color Yellow Urine Appearance Clear (Clear) Urine pH 6.0 (4.5-7.5) Ur Specific [place] > 1.045 H (1.000-1.030) Urine Protein 1+ H (Negative) Urine Glucose (UA) Negative (Negative) Diagnostic Findings Chest X-Ray 04/25/23 22:06 XR chest 1V not portable CLINICAL HISTORY: NG tube placement COMPARISON STUDY: Chest CT March 28, 2023. FINDINGS: Tip of nasogastric tube is within the gastric fundus. Multiple dilated loops of small bowel are again noted. Right internal jugular Qiacmf-v-Iosq is in place. There is no pneumothorax or pleural effusion. Multifocal cavitary opacities within the lungs IMPRESSION: 1. Satisfactory positioning of the nasogastric tube. Findings suggestive of a small bowel obstruction. 2. Extensive multifocal cavitary opacities within the lungs, slightly increased since prior exam. Given the clinical history, metastatic cervical cancer is favored. An infectious process could appear similar. ACT 112: Negative or not required by law. Electronically signed by: Roderick Dykes M.D. 04/26/2023 7:15 AM Chest X-Ray 04/26/23 02:31 XR chest 1V portable CLINICAL HISTORY: sob low o2 COMPARISON STUDY: Chest CT March 28, 2023. Chest radiograph April 25, 2023. FINDINGS: Tip of nasogastric tube is within the body of the stomach. Multiple loops of dilated small bowel are noted. These are better depicted on CT of the abdomen and pelvis April 25, 2023. There is no pneumothorax or pleural effusion. Multiple focal airspace opacities within the lungs are again noted. Several of these are cavitary. Right basilar opacity has mildly increased. Cardiomediastinal silhouette is unremarkable. Right internal jugular Vrvctv-r-Uvca remains in place. IMPRESSION: 1. Extensive multifocal cavitary airspace opacities , slightly increased since prior exam. Given clinical history, the findings may reflect metastatic cervical cancer. Cavitary pneumonia, septic emboli and fungal infection are also within the differential. 2. Satisfactory positioning of the nasogastric tube. Redemonstration small bowel dilatation suggestive of a small bowel obstruction. ACT 112: Negative or not required by law. Electronically signed by: Roderick Dykes M.D. 04/26/2023 7:06 AM Medications Administered Home Medications Medication Instructions Recorded Confirmed Last Taken cilostazol 50 mg tablet 50 mg PO BID 02/16/23 04/25/23 04/25/23 am cyclosporine 0.05 % eye drops in a 1 drp OPB BID 02/16/23 04/25/23 04/25/23 dropperette (Restasis) fentanyl 12 mcg/hr transdermal 12 mcg transdermal Q72H 02/16/23 04/25/23 04/22/23 patch due now gabapentin 100 mg capsule 200 mg PO BID 02/16/23 04/25/23 04/25/23 am melatonin 3 mg tablet 3 mg PO HS 02/16/23 04/25/23 04/24/23 olanzapine 2.5 mg tablet 2.5 mg PO HS 02/16/23 04/25/23 04/24/23 oxybutynin chloride 10 mg 10 mg PO PM 02/16/23 04/25/23 04/24/23 tablet,extended release 24 hr polyethylene glycol 3350 17 gram 17 g PO DAILY 02/16/23 04/25/23 04/24/23 oral powder packet (Miralax) varenicline 0.03 mg/spray nasal 1 spray intranasal BID 02/16/23 04/25/23 Unknown spray (Tyrvaya) dronabinol 2.5 mg capsule 2.5 mg PO BID 03/28/23 04/25/23 04/25/23 am duloxetine 60 mg capsule,delayed 60 mg PO QAM 03/28/23 04/25/23 04/25/23 release magnesium oxide 400 mg PO QAM 03/28/23 04/25/23 04/25/23 sennosides 8.6 mg tablet (senna) 8.6 mg PO DAILY PRN Constipation 03/28/23 04/25/23 Unknown dicyclomine 20 mg tablet 20 mg PO TID PRN Abdominal 04/25/23 04/25/23 Unknown Discomfort enoxaparin 100 mg/mL subcutaneous 100 mg subcut BID 04/25/23 04/25/23 04/25/23 syringe am potassium chloride 20 mEq 20 meq PO QAM 04/25/23 04/25/23 04/25/23 tablet,extended release prednisone 20 mg tablet 40 mg PO QAM 04/25/23 04/25/23 04/25/23 Active Medications Generic Name Dose Route Start Last Admin Trade Name Freq PRN Reason Stop Dose Admin Fentanyl 12 mcg 04/25/23 22:15 04/26/23 00:10 Fentanyl 12 Mcg/Hr Tdsy TD 05/09/23 22:14 12 mcg Q72H SAE Administration Acetaminophen 1,000 mg in 100 mls @ 400 mls/hr 04/25/23 21:40 04/26/23 09:23 Ofirmev IV 04/28/23 21:39 Infused Q8H PRN Infusion pain/fever Promethazine HCl 6.25 mg/ 50.25 mls @ 201 mls/hr 04/25/23 21:40 04/26/23 01:35 Sodium Chloride IV 05/25/23 21:39 Infused Q6H PRN Infusion Nausea And Vomiting Heparin Sodium/Dextrose 25,000 units in 500 mls @ 17 mls/hr 04/26/23 04:00 04/26/23 04:30 Heparin Sodium/Dextrose IV 05/26/23 03:59 850 units/hr .Q24H SAE 17 mls/hr Administration Protocol 850 UNITS/HR Lactated Ringer's 1,000 mls @ 100 mls/hr 04/26/23 10:00 04/26/23 09:26 Lr IV 05/26/23 09:59 100 mls/hr .Q10H SAE Administration Hydrocortisone Sodium 1 mls @ 4 mls/min 04/26/23 08:00 04/26/23 09:26 Succinate 50 mg/ Syringe IV 05/26/23 07:59 4 mls/min Q8H SAE Administration Lidocaine 1 patch 04/25/23 23:30 04/25/23 23:41 Lidocaine 5% 1 Patch TD 05/25/23 23:29 1 patch HS SAE Administration Miscellaneous 1 each 04/26/23 00:00 04/26/23 09:23 Order Awaiting Action [Cyclosporine [Restasis] 0.05 % Dropperette] N/A 05/26/23 00:00 Not Given QS SAE Miscellaneous 1 each 04/26/23 00:00 04/26/23 09:22 Check Fentanyl Patch Placement N/A 05/26/23 00:00 1 each QS SAE Administration Miscellaneous 1 each 04/25/23 22:15 04/26/23 00:16 Fentanyl Patch Remove & Waste N/A 05/25/23 22:14 1 each Q3D SAE Administration Miscellaneous 1 each 04/26/23 00:00 04/26/23 09:23 Order Awaiting Action [Varenicline [Tyrvaya] 0.03 Mg/[place], Metered, Non-Aeroso] N/A 05/26/23 00:00 Not Given QS SAE Miscellaneous 1 each 04/26/23 07:30 04/26/23 09:33 Icu Protocol For Hyperglycemia N/A 04/28/23 07:29 1 each ACHS SAE Administration (1) Sepsis Sepsis type: sepsis due to unspecified organism Sepsis acute organ dysfunction status: with acute organ dysfunction Severe sepsis acute organ dysfunction type: acute respiratory failure Acute respiratory failure type: with hypoxia Severe sepsis shock status: without septic shock Qualified Code(s): A41.9 - Sepsis, unspecified organism; R65.20 - Severe sepsis without septic shock; J96.01 - Acute respiratory failure with hypoxia
[2023-04-26] MEDS: MAGNESIUM SULFATE / D5W 1 GM/100 ML BAG IV ONE (08:20)
[2023-04-26 08:44] LABS: A calco-baum cmplx NotReported Not Detected (NotDetected); Bact fragilis Not Reported Not Detected (NotDetected); Blood Culture Id Panel See PCR Comment (NotDetected); C auris Not Reported Not Detected (NotDetected); Calbicans Not Reported Not Detected (NotDetected); Candida glabrata Not Reported Not Detected (NotDetected); Candida krusei Not Reported Not Detected (NotDetected); Cneoformans/gatti Not Reported Not Detected (NotDetected); Cparapsilosis Not Reported Not Detected (NotDetected); E cloacae compx Not Reported Not Detected (NotDetected); Efaecalis Not Reported Not Detected (NotDetected); Efaecium Not Reported Not Detected (NotDetected); Enterobacterales Not Reported Not Detected (NotDetected); Escherichia coli Not Reported Not Detected (NotDetected); H influenzae Not Reported Not Detected (NotDetected); K aerogenes Not Reported Not Detected (NotDetected); Koxytoca Not Reported Not Detected (NotDetected); Kpneumoniae grp Not Reported Not Detected (NotDetected); Lmonocyt Not Reported Not Detected (NotDetected); N meningitidis Not Reported Not Detected (NotDetected); P aeruginosa Not Reported Not Detected (NotDetected); Proteus spp Not Reported Not Detected (NotDetected); Salmonella spp Not Reported Not Detected (NotDetected); Smarcescens Not Reported Not Detected (NotDetected); Staph lugdunensis Not Reported Not Detected (NotDetected); Staph spp. Not Reported Not Detected (NotDetected); Staphaureus Not Reported Not Detected (NotDetected); Staphepi Not Reported Not Detected (NotDetected); Stenmaltophilia Not Reported Not Detected (NotDetected); Strep agal(GrpB) Not Reported Not Detected (NotDetected); Strep pneum Not Reported Not Detected (NotDetected); Strep pyog (GrpA) Not Reported DETECTED (NotDetected); Streptococcus pyogenes (GrpA) DETECTED (NotDetected); Streptococcus spp DETECTED (NotDetected)
[2023-04-26] MEDS ORDERED: methylPREDNISolone 32 MG in SYRINGE 0 ML IV SCH (09:00)
[2023-04-26] MEDS ORDERED: predniSONE 20 MG TAB PO SCH (09:00)
[2023-04-26] MEDS: LACTATED RINGER'S 1,000 ML IV SCH (09:26)
[2023-04-26] MEDS: HYDROCORTISONE SOD 50 MG in SYRINGE 0 ML IV SCH (09:26)
[2023-04-26] MEDS: ICU Protocol for HYPERglycemia SCH ×2 (09:33→22:46)
[2023-04-26] MEDS ORDERED: VANCOMYCIN CONSULT ACTIVE PRN (09:43)
[2023-04-26] MEDS: VANCOMYCIN HCL 1,000 MG in SODIUM CHLORIDE 0.9% 500 ML IV STA (10:38)
[2023-04-26 10:43] LABS: Strep spp Not Reported DETECTED (NotDetected)
[2023-04-26 10:44] LABS: Phosphorus 3.9 mg/dl (2.5-4.9)
[2023-04-26] MEDS: ACYCLOVIR SOD IV ONE ×2 (10:45→13:00)
[2023-04-26] MEDS: DEXTROSE 5% IV ONE ×2 (10:45→13:00)
--- NOTE | 2023-04-26 10:57 | Ultrasound Report ---
US venous doppler LE BI CLINICAL HISTORY: eval for DVT TECHNIQUE: Bilateral lower extremity real-time compression venous ultrasound with Color Doppler imagi ng. Utilizing real-time ultrasonic imaging multiple real time high-resolution ultrasonic images with compression and noncompression maneuvers of the deep venous system in addition to color doppler imagi ng were performed from the common femoral vein through the proximal calf veins. COMPARISON: Comparison is made to right lower extremity Doppler ultrasound 11/11/2017 FINDINGS/IMPRESSION: Chronic nonocclusive thrombus extends the length of one of 2 superficial femoral veins on the right, patient has a duplicated system. There may be minimal nonocclusive extension into the proximal poplit eal vein. There is also partially occlusive thrombus of one of 2 posterior tibial veins. Overall the extent of thrombus has improved from the prior exam. No left lower extremity DVT is seen. There is ly mphedema in the left leg with probable shingles in the groin and lower abdomen. ACT 112: Negative or not required by law. Electronically signed by: Cristino Karimi M.D. 04/26/2023 10:56 AM
[2023-04-26] MEDS: VANCOMYCIN HCL 1,000 MG in SODIUM CHLORIDE 0.9% 250 ML IV STA (10:58)
[2023-04-26] MEDS: PIPER/TAZO 4.5g in D5W MINI-B 100 ML IV ONE (10:58)
[2023-04-26 11:05] LABS: ANTI-Xa, UFH(UnfractionatedHep 0.44 IU/ml (0.3-0.7)
--- NOTE | 2023-04-26 11:15 | Critical Care Consultation ---
Date of Consultation April 26, 2023 Assessment & Plan (1) Immunocompromised patient: (2) Bacteremia due to Gram-positive bacteria: (3) Sepsis: (4) Tachycardia: (5) Metastatic disease: (6) SBO (small bowel obstruction): (7) Abnormal chest CT: (8) Rash: (9) Cellulitis: Plan Reason Critically Ill: 52-year-old male present to the hospital with complaints of nausea vomiting abdominal pain and generalized lethargy Past medical history: Cervical cancer diagnosed 2014 s/p radical hysterectomy and radiation with relapse and metastasis in 2018, on chemo, thrombosis of the right femoral vein on Lovenox, on 40 mg of prednisone for pneumonitis. Transferred to ICU for septic shock Neuro - [facility] ICU: Negative -- Anxiety/depression On duloxetine, olanzapine at home Cardiac - -- Hypotension Likely secondary to sepsis Responded to fluids Try to keep MAP greater than 65, add vasopressors if need be Random cortisol 34 Although he has hide sorry I missed your call this is currently Negative for DVT on 04/26/2023 --Prolonged QTc QTc 501 on 04/26/2023 Avoid QT prolonging medications Respiratory - -- Acute on chronic hypoxic respiratory failure CT chest shows groundglass patchy opacities along with cystic/cavitary lesions They have not changed since at least January 2023. This could represent changes from the metastatic disease after chemotherapy as well as pneumonitis Given the patient is on 40 mg of prednisone which was started after the CAT scan in January. Probability of PJP is there below GI - -- Partial SBO Continue with NGT to suction Surgery on board RENAL/LYTES - -- KARIN Monitor BUN/creatinine Avoid nephrotoxic medications Strict ins and outs - Continue with Wright catheter ENDO - --On chronic 40 mg prednisone for approximately 2 months Will benefit from PJP prophylaxis with Bactrim S[facility] ICU hypoglycemia protocol HEME - -- Pancytopenia with microcytic anemia Likely from underlying chemotherapy Continue to monitor ID - -- Gram-positive cocci in chains bacteremia On bio fire and strep pyogenes, source could be left lower extremity Continue with broad-spectrum antibiotic --Rash in the left lower quadrant, macular petechial, tender to touch Given the immunosuppressed state, shingles cannot be ruled out Infectious disease has been consulted --Prophylaxis VTE: Heparin drip GI: Pantoprazole Lines: Peripheral with right-sided port Diet: N.p.o. Plan: Continue with NG tube obstruction, surgery is on board and will follow recommendation She did have bowel movement yesterday. Magnesium is being replaced. She does have KARIN, follow-up urine lites. Repeat BMP later today Keep MAP greater than 65. If it starts to drop and vasopressors Given that she has been on prednisone 40 mg on a daily basis for more than 2 months. She will benefit from PJP prophylaxis. I looked at the CT chest even February 16, 2023 which showed groundglass opacities and cavitary lesions. I think this could be from the chemotherapy as well as pneumonitis rather than PJP. I will order PJP sputum culture. She does have a rash which is tender to touch, no vesicles following a dermatome in the left lower quadrant going to the back. Possibility of varicella as there especially in immunocompromised patient. I will start the patient on valacyclovir. Infectious disease have been consulted and I personally spoke with them. Continue with Zosyn. Will add vancomycin till we have nasal MRSA back I have personally spent 62 minutes of critical care time in the direct management of this patient. This is a life/limb threatening event. This includes time spent evaluating patient, direct bedside care, chart review, placing orders, interpretation of diagnostic studies, discussion with consultants, patient, and family members, as well as other required patient management activities. This time is exclusive of all separately billable procedures, and teaching time and separate from and in addition to any other critical care service time. History of Present Illness Attending Physician: Hilda Alves MD History of Present Illness 52-year-old male present to the hospital with complaints of nausea vomiting abdominal pain and generalized lethargy Past medical history: Cervical cancer diagnosed 2014 s/p radical hysterectomy and radiation with relapse and metastasis in 2018, on chemo, thrombosis of the right femoral vein on Lovenox, on 40 mg of prednisone for pneumonitis Patient was transferred to the ICU for hypotension At the time of examination patient was not on any vasopressors. She was tachycardic in the 120s which was sinus. Her MAP was in the high 60s. Patient was saturating 99% on 5 L oxy mask She did complain of abdominal pain, nausea and vomiting Denied any subjective fever or chills at home. She did notice a new rash in the left lower quadrant going into the back which is new. She denies any chest pain. No significant shortness of breath. She stated that she feels better after NGT was placed No dysuria, no diarrhea. Patient did have bowel movements last 1 being last night. She was started on prednisone 40 mg around January 2023 after she had a CT chest done. This was started by her oncologist for possible pneumonitis Social history: Lifetime non-smoker Allergies Allergy/AdvReac Type Severity Reaction Status Date / Time cephalexin [From Keflex] Allergy Rash Verified 04/16/23 10:21 Home Medications Medication Instructions Recorded Confirmed Type cilostazol 50 mg tablet 50 mg PO BID 02/16/23 04/25/23 History cyclosporine 0.05 % eye drops in a 1 drp OPB BID 02/16/23 04/25/23 History dropperette (Restasis) fentanyl 12 mcg/hr transdermal 12 mcg transdermal Q72H 02/16/23 04/25/23 History patch gabapentin 100 mg capsule 200 mg PO BID 02/16/23 04/25/23 History melatonin 3 mg tablet 3 mg PO HS 02/16/23 04/25/23 History olanzapine 2.5 mg tablet 2.5 mg PO HS 02/16/23 04/25/23 History oxybutynin chloride 10 mg 10 mg PO PM 02/16/23 04/25/23 History tablet,extended release 24 hr polyethylene glycol 3350 17 gram 17 g PO DAILY 02/16/23 04/25/23 History oral powder packet (Miralax) varenicline 0.03 mg/spray nasal 1 spray intranasal BID 02/16/23 04/25/23 History spray (Tyrvaya) dronabinol 2.5 mg capsule 2.5 mg PO BID 03/28/23 04/25/23 History duloxetine 60 mg capsule,delayed 60 mg PO QAM 03/28/23 04/25/23 History release magnesium oxide 400 mg PO QAM 03/28/23 04/25/23 History sennosides 8.6 mg tablet (senna) 8.6 mg PO DAILY PRN Constipation 03/28/23 04/25/23 History dicyclomine 20 mg tablet 20 mg PO TID PRN Abdominal 04/25/23 04/25/23 History Discomfort enoxaparin 100 mg/mL subcutaneous 100 mg subcut BID 04/25/23 04/25/23 History syringe potassium chloride 20 mEq 20 meq PO QAM 04/25/23 04/25/23 History tablet,extended release prednisone 20 mg tablet 40 mg PO QAM 04/25/23 04/25/23 History Patient History Medical History (Updated 04/26/23 @ 13:53 by Kassie Josue MD, [facility]) SBO (small bowel obstruction) Chronic deep vein thrombosis (DVT) Primary cervical cancer with metastasis to other site Surgical History History of vascular surgery history bilateral lower extremity thrombectomy and stenting History of appendectomy History of hysterectomy Family History Father Cancer Other No significant family history Social History Smoking Status: Never smoker Hx Alcohol Use: No Hx Substance Use: No Preferred Language: Finnish Communication Ability: Effective Transmission Design Engineer Required: No Beliefs That Will Affect Care: None marital status: Current Living Situation: Spouse current occupational status: disabled How many Children do You have: 0 Other Information That Helps Us Care for You: No Feels Safe at Home: Yes Safety Concerns: Feels Safe At This Time Assistive Devices: Cane Review of Systems Review of Systems: All systems reviewed & are unremarkable except as noted in HPI & below Physical Exam Physical Exam: Constitutional: No acute distress, frail-appearing HEENT: EOMI, PERRLA Respiratory system: Good air entry bilaterally, no wheeze, no rhonchi, positive crackles bilaterally anteriorly and posteriorly CVS: S1-S2 positive, no murmurs or gallops, tachycardia Abdomen: Soft, nontender, nondistended, positive bowel sounds x4 Extremities: +2 pulses bilaterally radialis/ dorsalis pedis, no cyanosis, +2 left lower extremity edema, mild rubor, mild calor, mild daughter left lower extremity which is new as per the patient Neuro: Awake alert oriented x3 Psych: Normal mood and affect G/U: Positive Wright Skin: Petechial rash appreciated starting from around midline left lower quadrant going into the back. Does not cross the midline. No vesicles. Tender to touch Results & Data Results & Data Vital Signs (Past 12 Hours) Vital Signs Temp Pulse Pulse Pulse Resp BP BP 04/26/23 08:20 37.6 C H 127 H 28 H 117/65 04/26/23 07:52 04/26/23 07:26 124 H 04/26/23 07:20 124 H 26 H 114/67 04/26/23 04:53 136 H 26 H 96/62 L 04/26/23 03:32 149 H 40 H 116/69 04/26/23 03:32 04/26/23 02:43 154 H 85/63 L 04/26/23 02:38 37.1 C 155 H 42 H 85/63 L 04/26/23 01:55 157 H 04/25/23 23:30 148 H 30 H 04/25/23 21:19 128 H Pulse Ox Pulse Ox O2 Del Method O2 Del Method O2 Flow Rate O2 Flow Rate 04/26/23 08:20 98 Oxymask 5 04/26/23 07:52 Oxymask 5 04/26/23 07:26 04/26/23 07:20 96 Oxymask 5 04/26/23 04:53 95 Oxymask 5 04/26/23 03:32 92 Oxymask 5 04/26/23 03:32 92 Oxymask 5 04/26/23 02:43 04/26/23 02:38 92 Oxymask 4 04/26/23 01:55 04/25/23 23:30 04/25/23 21:19 Coding Level of Care Code 27761 CRITICAL CARE 1ST 30-74M Diagnoses Immunocompromised patient D84.9 Bacteremia due to Gram-positive bacteria R78.81 Sepsis with acute hypoxic respiratory failure without septic shock, due to unspecified organism A41.9; R65.20; J96.01 Sepsis type: sepsis due to unspecified organism Sepsis acute organ dysfunction status: with acute organ dysfunction Severe sepsis acute organ dysfunction type: acute respiratory failure Acute respiratory failure type: with hypoxia Severe sepsis shock status: without septic shock Tachycardia R00.0 Metastatic disease C79.9 Area of secondary neoplastic involvement: unspecified site SBO (small bowel obstruction) K56.[address] R93.89 Rash R21 Cellulitis L03.90 (3) Sepsis Sepsis type: sepsis due to unspecified organism Sepsis acute organ dysfunction status: with acute organ dysfunction Severe sepsis acute organ dysfunction type: acute respiratory failure Acute respiratory failure type: with hypoxia Severe sepsis shock status: without septic shock Qualified Code(s): A41.9 - Sepsis, unspecified organism; R65.20 - Severe sepsis without septic shock; J96.01 - Acute respiratory failure with hypoxia (5) Metastatic disease Area of secondary neoplastic involvement: unspecified site Qualified Code(s): C79.9 - Secondary malignant neoplasm of unspecified site
[2023-04-26 11:46] LABS: iSTAT Arterial Blood Gas HCO3 13 meg/L (19-24); iSTAT Arterial Blood Gas pCO2 21 mmHg (35-46); iSTAT Arterial Blood Gas pH 7.41 (7.35-7.45); iSTAT Arterial Blood Gas pO2 70 mmHg (80-95); iSTAT Carbon Dioxide 14 mmol/L (24-31); iSTAT Hematocrit 26 % (37-47); iSTAT Hemoglobin 8.8 g/dl (12.0-16.0); iSTAT Potassium 3.8 mmol/L (3.3-5.0); iSTAT Sodium 136 mmol/L (135-144)
[2023-04-26] MEDS ORDERED: ARTIFICIAL TEARS OP PRN (12:28)
[2023-04-26] MEDS: cilostazoL 100 MG TAB PO SCH (13:00)
[2023-04-26] MEDS ORDERED: HYDROCORTISONE SOD 50 MG in SYRINGE 0 ML IV SCH (13:00)
[2023-04-26] MEDS: PANTOprazole 40 MG in SYRINGE DAILY IV SCH (13:00)
[2023-04-26] MEDS: PLASMA-LYTE A 1,000 ML IV SCH (13:03)
[2023-04-26] MEDS: ONDANSETRON INJ 2 MG/ML 2 ML VIAL IV PRN (13:34)
[2023-04-26 15:18] LABS: BUN Creatinine Ratio 32.1 (10-20); Calcium 7.7 mg/dl (8.6-10.3); Creatinine Clr Calc Pharmacy 62.6 ml/min; Est GFR (African American) 101.3 ml/min; Est GFR (Non-African American) 87.4 ml/min; Magnesium 2.1 mg/dl (1.7-2.4); Phosphorus 4.2 mg/dl (2.5-4.9); Potassium 3.6 mmol/L (3.5-5.1)
--- NOTE | 2023-04-26 15:18 | Surgery Progress Note ---
Date of Service April 26, 2023 Assessment & Plan (1) SBO (small bowel obstruction): Plan: Very difficult issue. The patient has been in and out of the hospital very frequently recently with small bowel obstructions. These do tend to resolve relatively quickly with conservative management. She would be a very poor surgical candidate at this time due to progression of her cancer but also because of her history of pelvic radiation. They are beginning to get frustrated with her quality of life and consideration should be given to offering her a palliative care consult. I am going to call her oncologist who is in [facility] to discuss options. Perhaps a percutaneous gastrostomy tube for at home decompression would help her quality of life as well as a nurse to administer IV fluids as necessary at home as well. I do not believe she would tolerate exploratory laparotomy and this has a high likelihood of making things worse. We will continue to follow along closely during this hospital stay. (2) Metastatic disease: (3) Sepsis: (4) Immunocompromised patient: (5) Chronic deep vein thrombosis (DVT): Admission and Anticipated Discharge Date Admission Date: April 25, 2023 Subjective pt seen. at bedside. She is feeling considerably better than when she came in. Physical Exam Physical Exam: Alert and oriented. Appears reasonably comfortable currently. Eyes: PERRL, conjunctivae normal, anicteric sclerae EOM intact bilaterally ENMT: external ear and nose normal, oropharynx normal Ears: no hearing impa irment Neck: trachea midline, no thyromegaly Respiratory: normal respiratory effort; no respiratory distress and does not use accessory muscles Gastrointestinal (Abdomen): Soft. Mild tenderness. Mild distention. Skin: no rashes, warm and dry Psychiatric: Orientation: alert, oriented x 3 and cooperative Results & Data Vital Signs (Past 12 Hours) Vital Signs Temp Pulse Pulse Resp BP Pulse Ox Pulse Ox 04/26/23 08:20 37.6 C H 127 H 28 H 117/65 98 04/26/23 07:52 04/26/23 07:26 124 H 04/26/23 07:20 124 H 26 H 114/67 96 04/26/23 04:53 136 H 26 H 96/62 L 95 04/26/23 03:32 149 H 40 H 116/69 92 04/26/23 03:32 92 O2 Del Method O2 Del Method O2 Flow Rate O2 Flow Rate 04/26/23 08:20 Oxymask 5 04/26/23 07:52 Oxymask 5 04/26/23 07:26 04/26/23 07:20 Oxymask 5 04/26/23 04:53 Oxymask 5 04/26/23 03:32 Oxymask 5 04/26/23 03:32 Oxymask 5 PG Care Time/CCT Total # of Minutes Spent Total Time Spent with Patient: Total time spent is greater than 50% in coordination of care (as documented) at patient's floor/unit and/or counseling patient: Coding Level of Care Code 88617 SUB INP/OBS CARE 2MIN Diagnoses SBO (small bowel obstruction) K56.609 Metastatic disease C79.9 Area of secondary neoplastic involvement: unspecified site Sepsis with acute hypoxic respiratory failure without septic shock, due to unspecified organism A41.9; R65.20; J96.01 Sepsis type: sepsis due to unspecified organism Sepsis acute organ dysfunction status: with acute organ dysfunction Severe sepsis acute organ dysfunction type: acute respiratory failure Acute respiratory failure type: with hypoxia Severe sepsis shock status: without septic shock Immunocompromised patient D84.9 Chronic deep vein thrombosis (DVT) I82.509 (2) Metastatic disease Area of secondary neoplastic involvement: unspecified site Qualified Code(s): C79.9 - Secondary malignant neoplasm of unspecified site (3) Sepsis Sepsis type: sepsis due to unspecified organism Sepsis acute organ dysfunction status: with acute organ dysfunction Severe sepsis acute organ dysf unction type: acute respiratory failure Acute respiratory failure type: with hypoxia Severe sepsis shock status: without septic shock Qualified Code(s): A41.9 - Sepsis, unspecified organism; R65.20 - Severe sepsis without septic shock; J96.01 - Acute respiratory failure with hypoxia
[2023-04-26] MEDS: HYDROmorphone INJ 0.5 MG/0.5 ML SYR IV PRN (15:51)
[2023-04-26] MEDS: POTASSIUM CHLORIDE / WTR 20 MEQ/100 ML PLCT IV ONE ×2 (15:52→17:48)
[2023-04-26] MEDS: LINEZOLID 600 MG/300 ML BAG IV SCH (15:52)
[2023-04-26] MEDS: PIPERACILLIN/TAZOBACTAM 4.5 GM in DEXTROSE 5% MINI-B 100 ML IV SCH (15:53)
[2023-04-26] MEDS: guaiFENesin/DEXTROM SYRUP 200MG/20MG 10ML UDC PO SCH (16:03)
[2023-04-26] MEDS: LORazepam 0.25 MG in SYRINGE 0.125 ML IV PRN (16:04)
[2023-04-26] MEDS ORDERED: POTASSIUM CHLORIDE / WTR 20 MEQ/100 ML PLCT IV SCH (16:15)
[2023-04-26] MEDS: PLASMA-LYTE A 500 ML IV ONE (17:12)
--- NOTE | 2023-04-26 17:18 | Infectious Disease Consult ---
Date of Consultation April 26, 2023 Assessment & Plan (1) Bacterial infection due to streptococcus, group A: (2) Sepsis: (3) Metastatic disease: (4) SBO (small bowel obstruction): (5) Chronic deep vein thrombosis (DVT): (6) Abdominal pain: (7) Primary cervical cancer with metastasis to other site: (8) Immunocompromised patient: (9) Abnormal chest CT: (10) Cavitary pneumonia: (11) Acute hypoxemic respiratory failure: (12) Cellulitis of left leg: (13) Rash of groin: Plan Anel Whitfield is a 52-year-old woman with metastatic cervical cancer s/p radical hysterectomy and appendectomy 2013, pelvic radiation 2016 (mets to lungs/bone, last treatment: gemcitabine 04/17/23, receives [id number] at clinic in [place], [place]), prior pneumonitis while on Keytruda (last given 07/2022) and has been on chronic prednisone 40 mg daily since 02/16/23, recent admissions 01/2023 and 03/2023 for SBOs, DVT, who presents to [facility] on 04/25/23 after developing abd pain, n/v, found to have possible SBO, acute hypoxemic respiratory failure, LLE erythema c/f SSTI, also with new L inguinal/truncal erythematous rash, and 04/25 Group A Strep bacteremia. ID is consulted to evaluate for GAS bacteremia, rash, and possible pna. With GAS bacteremia in 4/4 bottles. Source may be LLE, which was newly erythematous and swollen on 04/25 and resembling cellulitis/SSTI. Also with new truncal/inguinal rash on 04/26. This was initially c/f Shingles given possibly dermatomal location however is now spreading past midline. C/f SSTI with NSTI as well given the pts GAS. GAS is a less likely pathogen for endocarditis but would nevertheless favor evaluating for deep-seated infection. Would repeat BCx to confirm clearance. Agree with TTE. PT with port in place and also with known chronic nonocclusive RLE thrombus. With acute hypoxemic respiratory failure and CT A/P showing patchy consolidations with cavitations in lower lung, CXR with extensive patchy cavitary consolidations. Patient with a history of pneumonitis from Keytruda and with known lung mets. She is not on home O2 but is now hypoxemic. She has been on prednisone 40 mg daily since 01/2023, without PJP ppx. Would be highly concerned about PJP although difficult to discern which of her lung findings are new (prior to starting steroids, her 02/16 CT also with multiple irregular nodules, GGOs, central cavitation). Would be concerned for infectious component of her imaging findings. Especially with her chronic prednisone use, now with wide ddx including PJP, endemic fungi, Aspergillus, and other fungal pna. Will send PJP PCR in sputum, serum LDH, BDG, and also Aspergillus Ag and Histo UrAg. Will also send for bacterial SpCx, fungal SpCx, and AFB sputum (to evaluate for NTM/MAC). If continued respiratory failure, consider repeat CT chest. Can continue pip-tazo which will cover GAS bacteremia as well as possible bacterial HAP. Will change vancomycin to linezolid for anti-toxin effect given spreading truncal/inguinal rash, though will monitor blood counts carefully, and note that pt also on other serotonergic meds. With leukopenia (~2 weeks after gemcitabine). If this is persistent/worsening would consider G-CSF. Reasonable to continue acyclovir for now, though pts abd/inguinal rash thus far without vesicles and Shingles less likely at this time. If persistent/worsening hypoxemia, or positive testing for PJP, would consider starting treatment-dose Bactrim. Would also consider initiation of antifungal therapy such as vori/burke. ID Problem List: 1.Group A Strep bacteremia 2.Immunosuppression due to chronic steroid use and chemotherapy for cervical cancer 3.Possible LLE SSTI 4.L-sided truncal/inguinal rash, possible SSTI/NSTI, possible Shingles 5.Chronic steroid use, not on PJP prophylaxis 6.Acute hypoxemic respiratory failure, [id number] pulmonary GGOs and cavitary lung lesions, cavitary pneumonia 7.History of pneumonitis from Keytruda 8.Leukopenia Recommendations: - Stop IV vancomycin - Start linezolid 600 mg IV BID (IV because of SBO) for antitoxin effect in setting of known GAS infection. Caution as will need to monitor blood counts closely, and pt also on serotonergic medications. - Continue pip-tazo 4.5 g IV q8h - Reasonable to continue acyclovir for now, though pts abd/inguinal rash thus far without vesicles - If persistent/worsening hypoxemia, or positive testing for PJP, would start treatment-dose Bactrim for PJP. - If persistent/worsening hypoxemia or other clinical worsening, would also consider initiation of antifungal therapy - Send sputum bacterial cx / fungal cx / AFB cx (eval for NTM/MAC), PJP PCR in sputum, Legionella UrAg, BDG, Aspergillus Ag, Histo UrAg, LDH, Crypto Ag - Repeat BCx ordered for 04/26 - If continued respiratory failure, consider repeat CT chest - Continue to trend CBC, if persistent/worsening leukopenia would consider G- CSF. - F/u TTE ID will continue to follow. Anum Desir MD, S Infectious Diseases [facility] Connect ID Connect direct line: [phone] Consultation Information Consultation was provided via telemedicine using two-way real-time interactive telecommunication between the patient and the telemedicine provider. For the duration of the visit, the provider was performing the assessment from a different facility than the patient. This includesuse of bluetooth stethoscope forauscultationperformed by the telepresenter that the telemedicine provider can hear if described in the physical exam. Kelp Gatherer contact information: Please call ID Connect Call Center . (Phone Number For Physician Use Only) After establishing a telemedicine visit, patient was: Patient was verified with two unique identifiers, Patient/authorized rep acknowledged consent and understanding and Gave permission to continue telehealth session Time Spent with Patient: Initial => 75 min History of Present Illness Reason for Consultation: GAS bacteremia, rash, and possible pna. Attending Physician: Hilda Alves MD History of Present Illness Anel Whitfield is a 52-year-old woman with metastatic cervical cancer s/p radical hysterectomy and appendectomy 2013, pelvic radiation 2016 (mets to lungs/bone, last treatment: gemcitabine 04/17/23, receives [id number] at clinic in [place], [place]), prior pneumonitis while on Keytruda (last given 07/2022) and has been on chronic prednisone 40 mg daily since 02/16/23, recent admissions 01/2023 and 03/2023 for SBOs, DVT, who presents to [facility] on 04/25/23 after developing abd pain, n/v, found to have possible SBO, acute hypoxemic respiratory failure, LLE erythema c/f SSTI, also with new L inguinal/truncal erythematous rash, and 04/25 Group A Strep bacteremia. ID is consulted to evaluate for GAS bacteremia, rash, and possible pna. The patient she has a history of admissions for SBO in 01/2023 and 03/2023. At her recent 03/2804/01/23 admission, her SBOs were managed medically with NGT, bowel rest, and IVF, and she did not undergo surgery. She was doing well after discharge until 04/25/23 at which time she awoke at 3:30 am with periumbilical abdominal pain, along with nausea and vomiting. She has had loose BMs and was passing minimal flatus. She reports that her symptoms were similar to her prior admissions for SBO, however she developed chills shortly before the ambulance arrived, which was a new symptom for her. No fevers. In the ED, afebrile. WBC 13.6. Was hypoxemic (pt does not wear O2 at home). CT A/P with dilated fluid and gas-filled small bowel loops with RLQ transition point c/f SBO, mild bladder prominence c/f cystitis, lucent lesions in lower thoracic and lumbar spine (c/f mets vs. hemangiomas), rectal fluid, small ascites with c/f peritoneal carcinomatosis. After she was brought to the ED, her LLE was noted to be swollen and erythematous. She reports this was new after arriving at the ED since her helped carry her on the EMS stretcher and it was not noted at that time. Regarding the patients cervical cancer, last treatment: gemcitabine 04/17/23, receives [id number] at clinic in [place], [place]. She reports that she was previously on Keytruda but developed pneumonitis to this, and her last dose was 07/2022. She says that she has been on prednisone since 01/2023, initially at 20 mg daily for a few weeks and has been on 40 mg daily since this time. She states this is for pneumonitis and pulmonary mets. She has not taken Bactrim or any other PJP ppx. At the time of evaluation, the patient also developed a new rash in her inguinal/truncal region. This was initially potentially resembling a dermatomal rash c/f Shingles and she was started on acyclovir. The rash has since spread and moved past midline. At the time of evaluation, she is wearing Oxymask at 5L. She has abdominal pain, and LLE redness and pain. She is able to speak though short of breath with long sentences. Pts has recently been coughing, no other sick contacts. Pt has a dog, no exposure to other animals/birds/livestock. No outdoor activities. No swimming pools, hot tubs. Allergy to Keflex, hives/rash 3 years ago. Allergies Allergy/AdvReac Type Severity Reaction Status Date / Time cephalexin [From Keflex] Allergy Rash Verified 04/16/23 10:21 Home Medications Medication Instructions Recorded Confirmed Type cilostazol 50 mg tablet 50 mg PO BID 02/16/23 04/25/23 History cyclosporine 0.05 % eye drops in a 1 drp OPB BID 02/16/23 04/25/23 History dropperette (Restasis) fentanyl 12 mcg/hr transdermal 12 mcg transdermal Q72H 02/16/23 04/25/23 History patch gabapentin 100 mg capsule 200 mg PO BID 02/16/23 04/25/23 History melatonin 3 mg tablet 3 mg PO HS 02/16/23 04/25/23 History olanzapine 2.5 mg tablet 2.5 mg PO HS 02/16/23 04/25/23 History oxybutynin chloride 10 mg 10 mg PO PM 02/16/23 04/25/23 History tablet,extended release 24 hr polyethylene glycol 3350 17 gram 17 g PO DAILY 02/16/23 04/25/23 History oral powder packet (Miralax) varenicline 0.03 mg/spray nasal 1 spray intranasal BID 02/16/23 04/25/23 History spray (Tyrvaya) dronabinol 2.5 mg capsule 2.5 mg PO BID 03/28/23 04/25/23 History duloxetine 60 mg capsule,delayed 60 mg PO QAM 03/28/23 04/25/23 History release magnesium oxide 400 mg PO QAM 03/28/23 04/25/23 History sennosides 8.6 mg tablet (senna) 8.6 mg PO DAILY PRN Constipation 03/28/23 04/25/23 History dicyclomine 20 mg tablet 20 mg PO TID PRN Abdominal 04/25/23 04/25/23 History Discomfort enoxaparin 100 mg/mL subcutaneous 100 mg subcut BID 04/25/23 04/25/23 History syringe potassium chloride 20 mEq 20 meq PO QAM 04/25/23 04/25/23 History tablet,extended release prednisone 20 mg tablet 40 mg PO QAM 04/25/23 04/25/23 History Patient History Medical History (Updated 04/26/23 @ 18:12 by Anum Desir MD) SBO (small bowel obstruction) Chronic deep vein thrombosis (DVT) Primary cervical cancer with metastasis to other site Surgical History History of vascular surgery history bilateral lower extremity thrombectomy and stenting History of appendectomy History of hysterectomy Family History Father Cancer Other No significant family history Social History Smoking Status: Never smoker Hx Alcohol Use: No Hx Substance Use: No Preferred Language: Montenegrin Communication Ability: Effective Monologist Required: No Beliefs That Will Affect Care: None marital status: Current Living Situation: Spouse current occupational status: disabled How many Children do You have: 0 Other Information That Helps Us Care for You: No Feels Safe at Home: Yes Safety Concerns: Feels Safe At This Time Assistive Devices: Cane Physical Exam Physical Exam: Exam obtained with aid of in-person telepresenter. General: Wearing Oxymask, able to speak HEENT: Conjunctivae non-injected, sclerae anicteric, MMM, OP clear. Resp: Wearing Oxymask Abd: Soft, nontender, nondistended. Normal bowel sounds throughout. No masses or organomegaly. Back: No tenderness to palpation along spine Ext: LLE with warmth, swelling, redness, and tenderness around the foot and ankle. L inguinal/truncal region with erythematous ?petechial rash, slightly warm and tender, which has spread past midline. No vesicles at this time. No joint effusions noted. Skin: As above. Neuro: Alert & interactive. Grossly non-focal. Psych: Pleasant, appropriate. Results & Data Vital Signs (Past 12 Hours) Vital Signs Temp Pulse Pulse Resp BP BP Pulse Ox 04/26/23 16:47 04/26/23 16:44 36.7 C 04/26/23 16:30 140 H 27 H 97 04/26/23 16:15 146 H 30 H 91 04/26/23 16:00 139 H 34 H 95 04/26/23 16:00 113/59 L 04/26/23 15:45 143 H 29 H 95 04/26/23 15:30 143 H 39 H 93 04/26/23 15:15 142 H 29 H 97 04/26/23 15:00 135 H 30 H 93 04/26/23 15:00 121/68 04/26/23 14:45 131 H 25 H 98 04/26/23 14:30 132 H 27 H 95 04/26/23 14:15 126 H 24 97 04/26/23 14:00 129/52 L 04/26/23 14:00 126 H 18 100 04/26/23 13:45 118 H 28 H 99 04/26/23 13:30 120 H 31 H 97 04/26/23 13:15 116 H 31 H 98 04/26/23 13:00 115 H 23 99 04/26/23 13:00 105/58 L 04/26/23 12:45 113 H 32 H 100 04/26/23 12:30 117 H 34 H 97 04/26/23 12:15 115 H 32 H 77 L 04/26/23 12:00 102/60 04/26/23 12:00 114 H 27 H 98 04/26/23 11:45 119 H 28 H 98 04/26/23 11:30 115 H 37 H 100 04/26/23 11:15 117 H 28 H 96 04/26/23 11:14 92/66 L 04/26/23 11:14 117 H 26 H 04/26/23 11:07 36.4 C L 04/26/23 11:00 115 H 30 H 98 04/26/23 10:45 118 H 28 H 100 04/26/23 10:30 115 H 27 H 99 04/26/23 10:15 113 H 28 H 97 04/26/23 10:00 116 H 29 H 98 04/26/23 09:45 119 H 30 H 91 04/26/23 09:35 122 H 17 99 04/26/23 09:07 36.4 C L 04/26/23 08:20 37.6 C H 127 H 28 H 117/65 98 04/26/23 07:52 04/26/23 07:26 124 H 04/26/23 07:20 124 H 26 H 114/67 96 O2 Del Method O2 Flow Rate 04/26/23 16:47 Oxymask 3 04/26/23 16:44 04/26/23 16:30 04/26/23 16:15 04/26/23 16:00 04/26/23 16:00 04/26/23 15:45 04/26/23 15:30 04/26/23 15:15 04/26/23 15:00 04/26/23 15:00 04/26/23 14:45 04/26/23 14:30 04/26/23 14:15 04/26/23 14:00 04/26/23 14:00 04/26/23 13:45 04/26/23 13:30 04/26/23 13:15 04/26/23 13:00 04/26/23 13:00 04/26/23 12:45 04/26/23 12:30 04/26/23 12:15 04/26/23 12:00 04/26/23 12:00 04/26/23 11:45 04/26/23 11:30 04/26/23 11:15 04/26/23 11:14 04/26/23 11:14 04/26/23 11:07 04/26/23 11:00 04/26/23 10:45 04/26/23 10:30 04/26/23 10:15 04/26/23 10:00 04/26/23 09:45 04/26/23 09:35 04/26/23 09:07 04/26/23 08:20 Oxymask 5 04/26/23 07:52 Oxymask 5 04/26/23 07:26 04/26/23 07:20 Oxymask 5 Diagnostic Findings Diagnostics: 04/26/23 Venous duplex Chronic nonocclusive thrombus extends the length of one of 2 superficial femoral veins on the right, patient has a duplicated system. There may be minimal nonocclusive extension into the proximal popliteal vein. There is also partially occlusive thrombus of one of 2 posterior tibial veins. Overall the extent of thrombus has improved from the prior exam. No left lower extremity DVT is seen. There is lymphedema in the left leg with probable shingles in the groin and lower abdomen. 04/25/23 CXR 1. Extensive multifocal cavitary airspace opacities , slightly increased since prior exam. Given clinical history, the findings may reflect metastatic cervical cancer. Cavitary pneumonia, septic emboli and fungal infection are also within the differential. 2.Satisfactory positioning of the nasogastric tube. Redemonstration small bowel dilatation suggestive of a small bowel obstruction. 04/25/2023 CT A/P 1. Patchy consolidations with cavitations throughout the lower lungs may represent infectious/inflammatory process. Component of neoplastic process is not excluded. 2. Dilated fluid and gas-filled small bowel loops, concerning for small bowel obstruction with transition point in the right lower quadrant. 3. Mild prominence of the bladder wall is nonspecific. Please correlate with urinalysis if concerned for cystitis. 4. Nonspecific similar lucent lesions in the lower thoracic and lumbar spine. Question osseous metastases versus hemangiomas. 5. Fluid in the rectum. Decompressed colon limits evaluation. 6. Small amount of ascites. Question nodularity in the lower abdomen which could be secondary to peritoneal carcinomatosis. Questionable abnormal soft tissue abscess involving small bowel, colon, and the right aspect of the bladder. 03/28/2023 CT Chest 1. Again seen are multiple scattered irregular nodules throughout both lungs, the majority of which show cavitation. These lesions show surrounding groundglass halo/consolidation. These findings likely represent metastatic cervical cancer. Superimposed pneumonia is not excluded. An atypical fungal infection, multifocal/cavitary pneumonia, and/or septic emboli could potentially appear similar. Clinical correlation will be essential. 2. There is no pleural effusion. 3. Hilar adenopathy is suspected but not well evaluated. There are mildly enlarged mediastinal nodes. 4. Perihepatic ascites. 5.Additional findings Micro Summary: 04/26 UA: 5-10 WBCs, 0-4 RBCs, >30 epis 04/26 MRSA nares: neg 04/25 BCx x2: 4/4 GPCs (BCID + group A Strep) 04/25 respiratory viral Biofire PCR panel: neg Antibiotic Summary: pip-tazo (04/26 present) linezolid (04/26 present) acyclovir (04/26 present) Prior vancomycin (04/26) metronidazole (04/25) Other notable meds prednisone 40 mg daily since 01/2023 hydrocort while inpatient (2) Sepsis Sepsis type: sepsis due to unspecified organism Sepsis acute organ dysfunction status: with acute organ dysfunction Severe sepsis acute organ dysfunction type: acute respiratory failure Acute respiratory failure type: with hypoxia Severe sepsis shock status: without septic shock Qualified Code(s): A41.9 - Sepsis, unspecified organism; R65.20 - Severe sepsis without septic shock; J96.01 - Acute respiratory failure with hypoxia (3) Metastatic disease Area of secondary neoplastic involvement: unspecified site Qualified Code(s): C79.9 - Secondary malignant neoplasm of unspecified site
[2023-04-26] MEDS ORDERED: Nursing to Pharmacy Communication SCH (19:30)
--- NOTE | 2023-04-26 19:48 | Electrocardiogram Report ---
Test Reason : Blood Pressure : / mmHG Vent. Rate : 157 BPM Atrial Rate : 157 BPM P-R Int : 124 ms QRS Dur : 068 ms QT Int : 310 ms P-R-T Axes : 070 098 -19 degrees QTc Int : 501 ms Sinus tachycardia Rightward axis Abnormal ECG When compared with ECG of 16-FEB-2023 10:35, Nonspecific T wave abnormality has replaced inverted T waves in Lateral leads Confirmed by Yo Higgins ([id number]) on 04/26/2023 7:48:09 PM Referred By: REFERRED SELF Confirmed By:Олег Higgins
--- NOTE | 2023-04-26 19:55 | Electrocardiogram Report ---
Test Reason : Blood Pressure : / mmHG Vent. Rate : 162 BPM Atrial Rate : 162 BPM P-R Int : 100 ms QRS Dur : 064 ms QT Int : 292 ms P-R-T Axes : 044 079 072 degrees QTc Int : 479 ms Sinus tachycardia Nonspecific ST and T wave abnormality Abnormal ECG When compared with ECG of 25-APR-2023 17:31, (unconfirmed) ST no longer depressed in Inferior leads Nonspecific T wave abnormality has replaced inverted T waves in Inferior leads T wave inversion no longer evident in Anterior leads Confirmed by Yo Higgins ([id number]) on 04/26/2023 7:55:01 PM Referred By: REFERRED SELF Confirmed By:Олег Higgins
[2023-04-26] MEDS ORDERED: VANCOMYCIN HCL 750 MG in SODIUM CHLORIDE 0.9% 250 ML IV SCH (20:00)
--- NOTE | 2023-04-26 20:38 | XCELERA ---
[id number] \\[id number]
[2023-04-26] MEDS ORDERED: MELATONIN 3 MG TAB PO SCH (21:00)
[2023-04-27 04:59] LABS: Albumin Globulin Ratio 1.4 (0.9-2); BUN Creatinine Ratio 31.7 (10-20); Bilirubin,Total 0.5 mg/dl (0.2-1.0); Calcium 7.8 mg/dl (8.6-10.3); Creatinine Clr Calc Pharmacy 77.5 ml/min; Est GFR (African American) 119.5 ml/min; Est GFR (Non-African American) 103.1 ml/min; Globulin 2.1 gm/dl (2.5-4.0); Magnesium 2.1 mg/dl (1.7-2.4); Phosphorus 3.3 mg/dl (2.5-4.9); Potassium 3.1 mmol/L (3.5-5.1); Total Protein 5.1 gm/dl (6.0-8.3)
[2023-04-27 05:08] LABS: Hematocrit (blood only) 23.3 % (37.0-47.0); Hemoglobin 6.8 g/dl (12.0-16.0); Mean Corpuscular Hemoglobin 21.6 pg (25.0-34.0); Mean Corpuscular Hgb Conc 29.2 g/dL (32.0-36.0); Mean Platelet Volume 10.4 fL (9.4-12.4); Platelet Count 209 K/uL (130-400); RDW Coefficient of Variation 20.6 % (11.5-14.5); RDW Standard Deviation 51.8 fL (36.4-46.3); Red Blood Count 3.15 M/uL (4.20-5.40); White Blood Count 9.22 K/ul (4.8-10.8)
[2023-04-27 05:09] LABS: ANTI-Xa, UFH(UnfractionatedHep 0.28 IU/ml (0.3-0.7)
[2023-04-27 05:38] LABS: Acanthocytes 1+; Basophils # (auto) 0.04 K/uL (0.00-0.20); Basophils % (auto) 0.4 %; Dohle Bodies 1+; Eosinophils # (auto) 0.01 K/uL (0.00-0.50); Eosinophils % (auto) 0.1 %; Immature Granulocytes # (auto) 0.33 K/uL (0.01-0.20); Immature Granulocytes % (auto) 3.6 %; Lymphocytes # (auto) 0.18 K/uL (1.20-3.40); Monocytes # (auto) 0.33 K/uL (0.11-0.59); Monocytes % (auto) 3.6 %; Neutrophils # (auto) 8.33 K/uL (1.40-6.50); Neutrophils % (auto) 90.3 %; Ovalocytes 1+; Tear Drop Cells 1+
[2023-04-27 06:16] LABS: Albumin Globulin Ratio 1.4 (0.9-2); BUN Creatinine Ratio 33.9 (10-20); Bilirubin,Total 0.5 mg/dl (0.2-1.0); Calcium 7.5 mg/dl (8.6-10.3); Creatinine Clr Calc Pharmacy 82.8 ml/min; Est GFR (African American) 122.1 ml/min; Est GFR (Non-African American) 105.4 ml/min; Globulin 2.1 gm/dl (2.5-4.0); Magnesium 2.1 mg/dl (1.7-2.4); Phosphorus 3.3 mg/dl (2.5-4.9); Potassium 3.3 mmol/L (3.5-5.1); Total Protein 5.1 gm/dl (6.0-8.3)
[2023-04-27 06:23] LABS: ANTI-Xa, UFH(UnfractionatedHep 0.27 IU/ml (0.3-0.7)
[2023-04-27 06:58] LABS: Hematocrit (blood only) 22.7 % (37.0-47.0); Hemoglobin 6.8 g/dl (12.0-16.0)
[2023-04-27] MEDS ORDERED: SODIUM CHLORIDE 0.9% 250 ML IV PRN (07:02)
[2023-04-27 07:03] LABS: Anisocytosis Present; Basophils # (auto) 0.01 K/uL (0.00-0.20); Basophils % (auto) 0.1 %; Dohle Bodies 2+; Eosinophils # (auto) 0.01 K/uL (0.00-0.50); Eosinophils % (auto) 0.1 %; Immature Granulocytes # (auto) 0.66 K/uL (0.01-0.20); Immature Granulocytes % (auto) 6.6 %; Lymphocytes # (auto) 0.25 K/uL (1.20-3.40); Lymphocytes % (auto) 2.5 %; Mean Corpuscular Hemoglobin 21.7 pg (25.0-34.0); Mean Corpuscular Volume 72.5 fL (80.0-100.0); Mean Platelet Volume 10.9 fL (9.4-12.4); Monocytes # (auto) 0.34 K/uL (0.11-0.59); Monocytes % (auto) 3.4 %; Neutrophils # (auto) 8.72 K/uL (1.40-6.50); Neutrophils % (auto) 87.3 %; Ovalocytes 1+; Platelet Count 226 K/uL (130-400); Poikilocytosis Present; Polychromasia 1+; RDW Coefficient of Variation 20.8 % (11.5-14.5); RDW Standard Deviation 50.9 fL (36.4-46.3); Red Blood Count 3.13 M/uL (4.20-5.40); Tear Drop Cells 1+; Toxic Vacuolation 1+; White Blood Count 9.99 K/ul (4.8-10.8)
--- NOTE | 2023-04-27 07:03 | Hospitalist Progress Note ---
Date of Service April 27, 2023 Assessment & Plan (1) Sepsis: (2) Bacteremia due to Gram-positive bacteria: (3) Immunocompromised patient: Plan Ms. Whitfield is a 52 year old female with PMH stage IV cervical cancer with metastasis to lungs, pelvis & vertebrae, chronic thrombosis right femoral vein, BLE thrombectomy and stenting on chronic Lovenox and Pletal, right ureteral stricture, history of adjustment disorder with anxiety, pelvic radiation 2016 (mets to lungs/bone, last treatment: gemcitabine 04/17/23, receives [id number] at clinic in [place], [place]), prior pneumonitis while on Keytruda (last given 07/2022), and chronic prednisone 40 mg daily since 02/16/23 not on PJP ppx, presented with abdominal pain and found to have small bowel obstruction on CT imaging with transition point in RLQ. Patient initially admitted on 04/25 for management of SBO; however, course complicated by hypoxia, tachycardia, and tenuous hemodynamics. Patient transferred to ICU for close hemodynamic monitoring. Labs revealed GPC bacteremia and physical exam 04/26 concerning for possible zoster infection of left groin as well as acute on chronic LLE swelling and erythema. Initially patient started on stress dose hydrocortisone, IV Vanc/Zosyn/Acyclovir. ID consulted and blood cultures notable for GAS bacteremia at that time. Source thought to be the newly erythematous LLE which appear suspicious for cellulitis. The underlying concern with GAS is SSTI with a necrotizing soft tissue infection as well given GAS. ECHO was with out apparent vegetations, and per ID note less likely endocarditis pathogen, therefore will trend blood cultures for clearance. Course further complicated by the acute hypoxemic respiratory failure, as well as increased patchy consolidations and cavitations of bilateral lower lungs. Patient has metastatic lung disease as well as prior pembrolizumab pneumonitis, Current infectious work up ordered thus far: [ ] PJP PCR [ ]LDH [ ] Beta D Glucan [ ] Aspergillus [ ] Histo [ ] AFB sputum pending [ ] Fungal Sputum pending [ ] Bacterial Sputum pending 04/26/2023 Blood Culture 07/04 GAS 04/27/2023 Blood Culture NGTD #Acute anemia, likely 2/2 ongoing sepsis, dilutional component #Anemia of chronic disease Diff with tear drop cells, toxic vacuolation s/p 6+ L IVF -Treat bacteremia below -s/p 1 unit PRBC 04/27 for hgb 6.8 -Other counts stable, WBC 9, plt 226 -Trend Hgb, transfuse < 7.0 #Sepsis 2/2 GAS bacteremia POA, c/f SSTI with NSTI #Petechial rash, LLQ #Immunocompromised Blood Cultures 04/25 07/04 + GAS UA noninfectious appearance Source port v left leg cellulitis MRSA negative ECHO without vegetations/mass Infectious Disease on consult, reviewed following recommendations -GAS less likely pathogen for endocarditis, ECHO completed w/o visible vegetations -Follow blood cultures for resolution -Vancomycin transitioned to Linezolid for antitoxin effect iso GAS -Continue Zosyn for GAS bacteremia and HAP coverage iso resp failure -Start full dose bactrim per ID, will deescalate to ppx dose contingent upon return of PJP PCR -Repeat CT Chest for comparison of prior imaging -Monitor clinical improvement, consider antifungal coverage -Continue IVF and hemodynamic monitoring per ICU protocol -Goal MAP >65 -Continue Hydrocortisone 50mg q8h for sepsis -Airborne and contact 2/2 GPC and concern for VZV #Acute hypoxic respiratory failure, multifactorial -iso sepsis, cavitary lesions? septic emboli given GPC blood cultures, known metastatic lung disease ; potential pneumonitis -Currently on 5L oxymask -Wean oxygen per ICU protocol -PJP sputum culture per ICU, ordered -Discussed Bactrim initiation with Dr Desir, will start full dose with plan to decrease if pjp negative #Sinus Tachycardia #Prolonged QTc Reports baseline HR in low 100s, ranging 120-150s on admission Likely multifactorial, hypoxia/sepsis Continue telemetry and hemodynamic monitoring in ICU QTc improved 04/27, 446 from 500 #Hypokalemia #Hypomagnesemia -Lytes per ICU protocol #Acute on chronic small bowel obstructions Recent admission managed conservatively, follows OP Gen Surgery on 04/16 regarding symptoms and encouaged to hydrate, trial of bentyl CT ABD transition point in RLQ -Last BM 04/25, NGT placed 04/25 -Surgery following at this time -Continue NPO with IVF hydration at this time, NGT LIS #KARIN *improving -Cr up to 1.3, now downtrending with IVF -Aggressive IVF and hemodynamic monitoring -Avoid nephrotoxic agents #Primary cervical cancer with metastatic disease #Hypercoagulability 2/2 metastatic disease #Chronic R fem thrombosis, BLE thrombectomy #Acute on Chronic Left lower extremity Lymphedema #Chronic Anticoagulation Know mets to lungs, pelvis, vertebra CT scan with cavitary lesions, increased since imaging obtained 03/28 Last treatment: 04/17~, received gemcitabine q2 weeks in [facility] -Continue fentanyl patch, duloxetine 60mg, Gabapentin 200mg BID -Continue -Heparin drip in interim -Continue cilostazol 50mg BID, monitor platelets on CBC -Dopplers with chronic nonocclusive thrombus RLE extent "improved from prior" per read, correction from prior note NO left LE dvt #Severe protein calorie malnutrition -BMI 17.81, iso chronic illness/metastatic disease 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, 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 Eager to stabilize, but both are wishing to speak to palliative to discuss "what's the outcome" Patient denies any chest pain, dyspnea, palpitations, or other acute concerns Physical Exam Constitutional: laying in bed, Oxymask in place, no overt distress noted Respiratory: normal respiratory effort, lungs clear to auscultation (scattered crackles ) Cardiovascular: tachycardic Gastrointestinal (Abdomen): normal bowel sounds, soft, nontender, no hepatosplenomegaly petechial rash around LLQ crosses midline, less tender today per patient report, no vesicles Musculoskeletal: LLE erythema markedly improved from day prior, swelling present but no longer tense, knee cap TTP but not along joint line, still can flex knee, FROM Results & Data Results & Data Vital Signs (Past 12 Hours) Vital Signs Temp Pulse Resp BP Pulse Ox O2 Del Method O2 Flow Rate 04/27/23 04:20 121 H 28 H 95 04/27/23 04:10 121 H 25 H 93 04/27/23 04:00 122 H 24 95 04/27/23 04:00 127/70 04/27/23 03:50 123 H 24 95 04/27/23 03:40 123 H 24 94 04/27/23 03:30 36.6 C 04/27/23 03:30 126 H 22 95 04/27/23 03:20 97 04/27/23 03:10 96 04/27/23 03:00 126 H 26 H 94 04/27/23 03:00 117/66 04/27/23 02:50 128 H 29 H 93 04/27/23 02:40 127 H 27 H 95 04/27/23 02:30 127 H 24 95 04/27/23 02:20 126 H 26 H 94 04/27/23 02:10 127 H 25 H 94 04/27/23 02:00 128 H 25 H 95 04/27/23 02:00 122/63 04/27/23 01:50 128 H 27 H 94 04/27/23 01:40 131 H 31 H 92 04/27/23 01:30 128 H 24 93 04/27/23 01:20 128 H 25 H 94 04/27/23 01:10 127 H 26 H 94 04/27/23 01:00 128 H 23 92 04/27/23 01:00 131/70 04/27/23 00:50 130 H 25 H 93 04/27/23 00:40 130 H 26 H 91 04/27/23 00:30 131 H 25 H 94 04/27/23 00:20 133 H 25 H 93 04/27/23 00:10 132 H 22 94 04/27/23 00:00 134 H 24 93 04/27/23 00:00 125/67 04/26/23 23:50 136 H 28 H 92 04/26/23 23:40 135 H 25 H 94 04/26/23 23:30 136 H 22 93 04/26/23 23:20 140 H 23 95 04/26/23 23:10 135 H 23 95 04/26/23 23:00 137 H 25 H 94 04/26/23 23:00 118/65 04/26/23 22:50 138 H 26 H 96 04/26/23 22:40 137 H 30 H 98 04/26/23 22:30 137 H 23 95 04/26/23 22:20 135 H 21 94 04/26/23 22:10 138 H 22 93 04/26/23 22:00 36.5 C 04/26/23 22:00 112/67 04/26/23 22:00 137 H 22 99 04/26/23 21:50 140 H 22 94 04/26/23 21:40 140 H 19 96 04/26/23 21:30 141 H 29 H 94 04/26/23 21:20 145 H 28 H 96 04/26/23 21:10 144 H 29 H 95 04/26/23 21:00 120/59 L 04/26/23 21:00 120/59 L 04/26/23 21:00 146 H 27 H 89 L 04/26/23 20:50 141 H 30 H 97 04/26/23 20:40 140 H 28 H 97 04/26/23 20:30 141 H 26 H 95 04/26/23 20:20 143 H 30 H 96 04/26/23 20:10 139 H 24 94 04/26/23 20:00 142 H 25 H 95 04/26/23 20:00 112/66 04/26/23 20:00 Oxymask 5 04/26/23 19:50 141 H 26 H 100 04/26/23 19:40 140 H 26 H 96 04/26/23 19:30 138 H 25 H 95 04/26/23 19:20 139 H 30 H 95 04/26/23 19:10 138 H 24 96 Laboratory Results Short CBC 04/27/23 04/27/23 Range/Units 04:19 05:23 WBC 9.22 (4.8-10.8) K/ul Hgb 6.8 L* 6.8 L* (12.0-16.0) g/dl Hct 23.3 L 22.7 L (37.0-47.0) % Plt Count 209 (130-400) K/uL BMP 04/26/23 04/27/23 04/27/23 14:29 04:19 05:23 Sodium 137 133 L 132 L Potassium 3.6 3.1 L 3.3 L Chloride 108 H 104 103 Carbon Dioxide 19 L 19 L 20 L BUN 25 H 20 20 Creatinine 0.78 D 0.63 0.59 L Glucose 118 H 143 H 143 H Calcium 7.7 L 7.8 L 7.5 L Liver Function 04/27/23 04/27/23 Range/Units 04:19 05:23 Total Bilirubin 0.5 0.5 (0.2-1.0) mg/dl AST 8 L 8 L (13-39) U/L ALT 13 14 (7-52) U/L Alkaline Phosphatase 73 79 (34-104) U/L Albumin 3.0 L 3.0 L (3.4-5.0) gm/dl Medications Administered Home Medications Medication Instructions Recorded Confirmed Last Taken cilostazol 50 mg tablet 50 mg PO BID 02/16/23 04/25/23 04/25/23 am cyclosporine 0.05 % eye drops in a 1 drp OPB BID 02/16/23 04/25/23 04/25/23 dropperette (Restasis) fentanyl 12 mcg/hr transdermal 12 mcg transdermal Q72H 02/16/23 04/25/23 04/22/23 patch due now gabapentin 100 mg capsule 200 mg PO BID 02/16/23 04/25/23 04/25/23 am melatonin 3 mg tablet 3 mg PO HS 02/16/23 04/25/23 04/24/23 olanzapine 2.5 mg tablet 2.5 mg PO HS 02/16/23 04/25/23 04/24/23 oxybutynin chloride 10 mg 10 mg PO PM 02/16/23 04/25/23 04/24/23 tablet,extended release 24 hr polyethylene glycol 3350 17 gram 17 g PO DAILY 02/16/23 04/25/23 04/24/23 oral powder packet (Miralax) varenicline 0.03 mg/spray nasal 1 spray intranasal BID 02/16/23 04/25/23 Unknown spray (Tyrvaya) dronabinol 2.5 mg capsule 2.5 mg PO BID 03/28/23 04/25/23 04/25/23 am duloxetine 60 mg capsule,delayed 60 mg PO QAM 03/28/23 04/25/23 04/25/23 release magnesium oxide 400 mg PO QAM 03/28/23 04/25/23 04/25/23 sennosides 8.6 mg tablet (senna) 8.6 mg PO DAILY PRN Constipation 03/28/23 04/25/23 Unknown dicyclomine 20 mg tablet 20 mg PO TID PRN Abdominal 04/25/23 04/25/23 Unknown Discomfort enoxaparin 100 mg/mL subcutaneous 100 mg subcut BID 04/25/23 04/25/23 04/25/23 syringe am potassium chloride 20 mEq 20 meq PO QAM 04/25/23 04/25/23 04/25/23 tablet,extended release prednisone 20 mg tablet 40 mg PO QAM 04/25/23 04/25/23 04/25/23 Active Medications Generic Name Dose Route Start Last Admin Trade Name Freq PRN Reason Stop Dose Admin Cilostazol 50 mg 04/26/23 09:00 04/26/23 22:33 Cilostazol 100 Mg Tab PO 05/26/23 08:59 50 mg BID SAE Administration Fentanyl 12 mcg 04/25/23 22:15 04/26/23 00:10 Fentanyl 12 Mcg/Hr Tdsy TD 05/09/23 22:14 12 mcg Q72H SAE Administration Guaifenesin/Dextromethorphan 10 ml 04/26/23 16:00 04/27/23 03:55 Guaifenesin/Dextrom Syrup 200mg/20mg 10ml Udc PO 05/26/23 15:59 10 ml Q8 SAE Administration Hydromorphone HCl 0.5 mg 04/26/23 15:32 04/26/23 19:53 Hydromorphone Inj 0.5 Mg/0.5 Ml Syr IV 05/10/23 15:31 0.5 mg Q2HWA PRN Administration Pain Acetaminophen 1,000 mg in 100 mls @ 400 mls/hr 04/25/23 21:40 04/26/23 09:23 Ofirmev IV 04/28/23 21:39 Infused Q8H PRN Infusion pain/fever Promethazine HCl 6.25 mg/ 50.25 mls @ 201 mls/hr 04/25/23 21:40 04/26/23 01:35 Sodium Chloride IV 05/25/23 21:39 Infused Q6H PRN Infusion Nausea And Vomiting Lorazepam 0.25 mg/ Syringe 0.25 mls @ 2 mls/min 04/26/23 03:30 04/26/23 21:17 IV 05/26/23 01:22 2 mls/min Q4H PRN Administration Anxiety/Agitation Heparin Sodium/Dextrose 25,000 units in 500 mls @ 18 mls/hr 04/26/23 04:00 04/27/23 06:25 Heparin Sodium/Dextrose IV 05/26/23 03:59 900 units/hr .Q24H SAE 18 mls/hr Titration Protocol 900 UNITS/HR Hydrocortisone Sodium 1 mls @ 4 mls/min 04/26/23 08:00 04/26/23 22:45 Succinate 50 mg/ Syringe IV 05/26/23 07:59 4 mls/min Q8H SAE Administration Piperacillin Sod/Tazobactam 100 mls @ 25 mls/hr 04/26/23 14:30 04/27/23 04:19 Sod 4.5 gm/ Dextrose IV 05/10/23 14:29 25 mls/hr Q8H SAE Administration Protocol Pantoprazole Sodium 40 mg/ 10 mls @ 5 mls/min 04/26/23 11:00 04/26/23 13:00 Syringe IV 05/26/23 10:59 5 mls/min DAILY@1100 SAE Administration Parenteral Electrolytes 1,000 mls @ 100 mls/hr 04/26/23 11:15 04/27/23 03:42 Plasma-Lyte A Ph 7.4 IV 05/26/23 11:14 100 mls/hr .Q10H SAE Administration Linezolid 600 mg in 300 mls @ 300 mls/hr 04/26/23 14:00 04/27/23 04:44 Zyvox IV 04/28/23 13:59 Infused Q12H SAE Infusion Lidocaine 1 patch 04/25/23 23:30 04/26/23 22:35 Lidocaine 5% 1 Patch TD 05/25/23 23:29 Not Given HS SAE Miscellaneous 1 each 04/26/23 00:00 04/26/23 22:45 Check Fentanyl Patch Placement N/A 05/26/23 00:00 1 each QS SAE Administration Miscellaneous 1 each 04/25/23 22:15 04/26/23 00:16 Fentanyl Patch Remove & Waste N/A 05/25/23 22:14 1 each Q3D SAE Administration Miscellaneous 1 each 04/26/23 00:00 04/26/23 09:23 Order Awaiting Action [Varenicline [Tyrvaya] 0.03 Mg/[place], Metered, Non-Aeroso] N/A 05/26/23 00:00 Not Given QS SAE Miscellaneous 1 each 04/26/23 21:00 04/26/23 22:34 Remove Lidoderm Patch N/A 05/26/23 20:59 1 each DAILY@2100 SAE Administration Miscellaneous 1 each 04/27/23 00:00 04/27/23 03:52 Icu Protocol For Hyperglycemia N/A 04/28/23 07:29 Not Given Q6 SAE Ondansetron HCl 4 mg 04/26/23 13:24 04/26/23 19:46 Ondansetron Inj 2 Mg/Ml 2 Ml Vial IV 05/26/23 13:23 4 mg Q6H PRN Administration Nausea (1) Sepsis Acute respiratory failure type: with hypoxia Sepsis acute organ dysfunction status: with acute organ dysfunction Sepsis type: sepsis due to unspecified organism Severe sepsis acute organ dysfunction type: acute respiratory failure Severe sepsis shock status: without septic shock Qualified Code(s): A41.9 - Sepsis, unspecified organism; R65.20 - Severe sepsis without septic shock; J96.01 - Acute respiratory failure with hypoxia
[2023-04-27] MEDS: POTASSIUM CHLORIDE / WTR 20 MEQ/100 ML PLCT IV SCH (07:38)
--- NOTE | 2023-04-27 07:53 | Critical Care Progress Note ---
Date of Service April 27, 2023 Assessment & Plan (1) Immunocompromised patient: (2) Bacteremia due to Gram-positive bacteria: (3) Sepsis: (4) Tachycardia: (5) Metastatic disease: (6) SBO (small bowel obstruction): (7) Abnormal chest CT: (8) Rash: (9) Cellulitis: Plan Reason Critically Ill: 52-year-old male present to the hospital with complaints of nausea vomiting abdominal pain and generalized lethargy Past medical history: Cervical cancer diagnosed 2014 s/p radical hysterectomy and radiation with relapse and metastasis in 2018, on chemo, thrombosis of the right femoral vein on Lovenox, on 40 mg of prednisone for pneumonitis. Transferred to ICU for septic shock Neuro - [facility] ICU: Negative -- Anxiety/depression On duloxetine, olanzapine at home Cardiac - -- S/p Hypotension Likely secondary to sepsis Responded to fluids Try to keep MAP greater than 65, add vasopressors if need be Random cortisol 34 -- Left lower extremity swelling Negative for DVT on 04/26/2023 --Prolonged QTc QTc 501 on 04/26/2023 Avoid QT prolonging medications Respiratory - -- Acute on chronic hypoxic respiratory failure CT chest shows groundglass patchy opacities along with cystic/cavitary lesions They have not changed since at least January 2023. This could represent changes from the metastatic disease after chemotherapy as well as pneumonitis Given the patient is on 40 mg of prednisone which was started after the CAT scan in January. Probability of PJP is there but low CT chest 04/27/2023 personally reviewed: Diffuse patchy opacities appreciated bilaterally upper and lower lobes with cavitary lesions This has worsened compared to CT of the chest in March 2023 No significant mediastinal lymphadenopathy GI - -- Partial SBO Continue with NGT to suction Surgery on board RENAL/LYTES - -- KARIN Monitor BUN/creatinine Avoid nephrotoxic medications Strict ins and outs - Continue with Wright catheter ENDO - --On chronic 40 mg prednisone for approximately 2 months Will benefit from PJP prophylaxis with Bactrim Mhojpl-Ejkkrorai-Mobfsh ICU hypoglycemia protocol HEME - -- Pancytopenia with microcytic anemia Likely from underlying chemotherapy Continue to monitor Transfuse if hemoglobin less than 7 ID - -- Strep pyogenous bacteremia On bio fire and strep pyogenes, source could be left lower extremity On linezolid and Zosyn --Cavitary lesions with patchy opacities bilaterally They are not groundglass anymore look more consolidative process LDH within normal limit PJP treatment has been started by infectious disease on 04/27/2023 Caspofungin has been added by ID for possible fungal infection especially Aspergillus in the lung Follow-up beta D glucan, histoplasma, cryptococcal and coccidioidal antigen --Rash in the left lower quadrant, macular petechial, tender to touch Given the immunosuppressed state, shingles cannot be ruled out Infectious disease has been consulted --Prophylaxis VTE: Heparin drip GI: Pantoprazole Lines: Peripheral with right-sided port Diet: N.p.o. Plan: In/out: +4.4 L, urine output 9 8 mL. Potassium being replaced. Hemoglobin 6.8, this is likely dilutional as well as chemo related. Will transfuse 1 unit of PRBC. The rash on the left flank and back has not significantly changed. No vesicles. Would not treat further for shingles. NG tube to suction. No surgical intervention, continue with conservative management Decrease hydrocortisone to 40 mg twice daily Continue with NG tube obstruction, surgery is on board and will follow recommendation She did have bowel movement yesterday. Magnesium is being replaced. She does have KARIN, follow-up urine lites. Repeat BMP later today Antibiotic and antifungal regimen as per infectious disease Palliative care consult has been placed I have personally spent 36 minutes of critical care time in the direct management of this patient. This is a life/limb threatening event. This includes time spent evaluating patient, direct bedside care, chart review, placing orders, interpretation of diagnostic studies, discussion with consultants, patient, and family members, as well as other required patient management activities. This time is exclusive of all separately billable procedures, and teaching time and separate from and in addition to any other critical care service time. Admission and Anticipated Discharge Date Admission Date: April 25, 2023 Subjective Patient seen and examined at bedside. No acute distress, vital signs overnight Her heart rate was in the low 120s Has been afebrile Says that she is feeling better when it comes to her abdominal pain. Still no flatulence Does complain of pain in the left lower extremity and lower back which is chronic and is getting medications for it. Denies any chest pain No headache No blurry vision Review of Systems 2 Review of Systems: All systems reviewed & are unremarkable except as noted in Subjective Physical Exam 2 Physical Exam: Constitutional: No acute distress, frail-appearing HEENT: EOMI, PERRLA Respiratory system: Good air entry bilaterally, no wheeze, no rhonchi, positive crackles bilaterally anteriorly and posteriorly CVS: S1-S2 positive, no murmurs or gallops, tachycardia Abdomen: Soft, nontender, nondistended, positive bowel sounds x4 Extremities: +2 pulses bilaterally radialis/ dorsalis pedis, no cyanosis, +3 left lower extremity edema, mild rubor, mild calor, mild rubor left lower extremity which is new as per the patient Neuro: Awake alert oriented x3 Psych: Normal mood and affect G/U: No Wright Skin: Petechial rash appreciated starting from around midline left lower quadrant going into the back. Does not cross the midline. No vesicles. Tender to touch Skin: no rashes, warm and dry Lymphatic: no cervical or axillary lymphadenopathy Results & Data Results & Data Vital Signs (Past 12 Hours) Vital Signs Temp Pulse Resp BP Pulse Ox O2 Del Method O2 Flow Rate 04/27/23 04:20 121 H 28 H 95 04/27/23 04:10 121 H 25 H 93 04/27/23 04:00 122 H 24 95 04/27/23 04:00 127/70 04/27/23 03:50 123 H 24 95 04/27/23 03:40 123 H 24 94 04/27/23 03:30 36.6 C 04/27/23 03:30 126 H 22 95 04/27/23 03:20 97 04/27/23 03:10 96 04/27/23 03:00 126 H 26 H 94 04/27/23 03:00 117/66 04/27/23 02:50 128 H 29 H 93 04/27/23 02:40 127 H 27 H 95 04/27/23 02:30 127 H 24 95 04/27/23 02:20 126 H 26 H 94 04/27/23 02:10 127 H 25 H 94 04/27/23 02:00 128 H 25 H 95 04/27/23 02:00 122/63 04/27/23 01:50 128 H 27 H 94 04/27/23 01:40 131 H 31 H 92 04/27/23 01:30 128 H 24 93 04/27/23 01:20 128 H 25 H 94 04/27/23 01:10 127 H 26 H 94 04/27/23 01:00 128 H 23 92 04/27/23 01:00 131/70 04/27/23 00:50 130 H 25 H 93 04/27/23 00:40 130 H 26 H 91 04/27/23 00:30 131 H 25 H 94 04/27/23 00:20 133 H 25 H 93 04/27/23 00:10 132 H 22 94 04/27/23 00:00 134 H 24 93 04/27/23 00:00 125/67 04/26/23 23:50 136 H 28 H 92 04/26/23 23:40 135 H 25 H 94 04/26/23 23:30 136 H 22 93 04/26/23 23:20 140 H 23 95 04/26/23 23:10 135 H 23 95 04/26/23 23:00 137 H 25 H 94 04/26/23 23:00 118/65 04/26/23 22:50 138 H 26 H 96 04/26/23 22:40 137 H 30 H 98 04/26/23 22:30 137 H 23 95 04/26/23 22:20 135 H 21 94 04/26/23 22:10 138 H 22 93 04/26/23 22:00 36.5 C 04/26/23 22:00 112/67 04/26/23 22:00 137 H 22 99 04/26/23 21:50 140 H 22 94 04/26/23 21:40 140 H 19 96 04/26/23 21:30 141 H 29 H 94 04/26/23 21:20 145 H 28 H 96 04/26/23 21:10 144 H 29 H 95 04/26/23 21:00 120/59 L 04/26/23 21:00 120/59 L 04/26/23 21:00 146 H 27 H 89 L 04/26/23 20:50 141 H 30 H 97 04/26/23 20:40 140 H 28 H 97 04/26/23 20:30 141 H 26 H 95 04/26/23 20:20 143 H 30 H 96 04/26/23 20:10 139 H 24 94 04/26/23 20:00 142 H 25 H 95 04/26/23 20:00 112/66 04/26/23 20:00 Oxymask 5 Laboratory Results 04/27/23 05:23 04/27/23 05:23 Coding Level of Care Code 04583 CRITICAL CARE 1ST 30-74M Diagnoses Immunocompromised patient D84.9 Bacteremia due to Gram-positive bacteria R78.81 Sepsis with acute hypoxic respiratory failure without septic shock, due to unspecified organism A41.9; R65.20; J96.01 Acute respiratory failure type: with hypoxia Sepsis acute organ dysfunction status: with acute organ dysfunction Sepsis type: sepsis due to unspecified organism Severe sepsis acute organ dysfunction type: acute respiratory failure Severe sepsis shock status: without septic shock Tachycardia R00.0 Metastatic disease C79.9 Area of secondary neoplastic involvement: unspecified site SBO (small bowel obstruction) K56.[address] R93.89 Rash R21 Cellulitis L03.90 (3) Sepsis Acute respiratory failure type: with hypoxia Sepsis acute organ dysfunction status: with acute organ dysfunction Sepsis type: sepsis due to unspecified organism Severe sepsis acute organ dysfunction type: acute respiratory failure Severe sepsis shock status: without septic shock Qualified Code(s): A41.9 - Sepsis, unspecified organism; R65.20 - Severe sepsis without septic shock; J96.01 - Acute respiratory failure with hypoxia (5) Metastatic disease Area of secondary neoplastic involvement: unspecified site Qualified Code(s): C79.9 - Secondary malignant neoplasm of unspecified site
[2023-04-27] MEDS: cilostazoL 100 MG TAB PO ONE (10:53)
[2023-04-27] MEDS: OPTIRAY 320 500ml IV ONE (11:47)
[2023-04-27] MEDS: TRIMETH IV SCH (12:19)
[2023-04-27] MEDS: DEXTROSE 5% IV SCH (12:19)
[2023-04-27] MEDS: SULFA IV SCH (12:19)
--- NOTE | 2023-04-27 12:33 | CT Scan Report ---
CT chest diagnostic wo/w con HISTORY: 52 years-old Female hypoxia Acute hypoxia. COMPARISON: Chest CT 03/28/2023, chest radiograph 04/26/2023. TECHNIQUE: Multiple axial CT images of the chest were obtained with and without the use of IV contras t. A dose lowering technique was used consistent with the principals of CA. FINDINGS: No thyroid nodule. The heart is mildly enlarged. Right IJ Zezjwe-l-pvcq catheter distal tip terminate s within the right atrium. No pericardial effusion or thoracic aortic aneurysm. No significant athero sclerosis. The opacified pulmonary artery appears unremarkable. Mediastinal and hilar lymphadenopathy is redemonstrated with hypodense right hilar lymph nodes measuring up to approximately 1.5 cm in osman rt axis, generally stable from the prior CT. There is no pneumothorax or pleural effusion. Intralobular septal thickening with extensive bilateral ground-glass and patchy nodular consolidative opacities are redemonstrated. Numerous cavitary consol idative opacities are again noted within a multisegmental and multilobar distribution bilaterally, wh ich has progressed compared to the chest CT from 03/28/2023. Several of the individual cavitations ap pear generally stable, however, the degree of surrounding consolidation has progressed. Bilateral air trapping. Central airways are patent. Fluid-filled distended esophagus, stomach and upper abdominal small bowel loops. Partially imaged mil d left-sided hydronephrosis. There is no pneumoperitoneum. Mild generalized body wall edema. No acute fracture or new destructive bone lesion is identified. Unchanged mild T5 compression deformity. IMPRESSION: 1. Extensive bilateral mixed interstitial and alveolar opacities with irregular consolidative, centra lly cavitary foci again seen within a multilobar distribution bilaterally. Findings have moderately w orsened compared to the 03/28/[address] As previously discussed, differential considerations inc lude pulmonary metastasis, cavitary pneumonia versus septic emboli. 2. Generally stable appearance of the pathologic mediastinal and hilar lymphadenopathy. 3. No pleural effusion. 4. Persistent small bowel obstruction. ACT 112: Negative or not required by law. The above report was generated using voice recognition software. It may contain grammatical, syntax o r spelling errors. Dictated: 04/27/2023 11:59 AM Transcribed: 04/27/2023 12:18 PM Cruz [id number] BILL_Rosa Maria Electronically signed by: Al Newsome M.D. 04/27/2023 12:32 PM
--- NOTE | 2023-04-27 12:59 | Surgery Progress Note ---
Date of Service April 27, 2023 Assessment & Plan (1) SBO (small bowel obstruction): Plan: had a discussion today with her Oncologist from [facility] Dr. Peralta ( spelling?). We do not believe she is a surgical candidate...ex lap may well make her life worse. I have discussed and she agrees to an EGD with PEG placement once she is feeling better. for now continue conservative management. ngt/ivf/antibiotics etc....will order KUB for tomorrow and if improved maybe d/c ngt and start clears Palliative is going to see pt as well Dr. Asencio covering for weekend. (2) Metastatic disease: (3) Primary cervical cancer with metastasis to other site: Admission and Anticipated Discharge Date Admission Date: April 25, 2023 Subjective pt seen. feeling better than yesterday. no nausea currently. Physical Exam Constitutional: WD/WN, vitals as above no acute distress and not ill appearing Eyes: PERRL, conjunctivae normal, anicteric sclerae EOM intact bilaterally ENMT: external ear and nose normal, oropharynx normal Ears: no hearing impairment Neck: trachea midline, no thyromegaly Cardiovascular: Rate/Rhythm: regular rate and regular rhythm Gastrointestinal (Abdomen): soft. nt. minimal distension. ngt in place...clear output currently. lower abdominal rash increased in distribution. Skin: no rashes, warm and dry Psychiatric: Orientation: alert, oriented x 3 and cooperative Results & Data Vital Signs (Past 12 Hours) Vital Signs Temp Pulse Resp BP Pulse Ox O2 Flow Rate 04/27/23 12:17 37 C 04/27/23 12:10 111 H 25 H 96 04/27/23 12:00 115 H 21 96 04/27/23 11:30 120/85 04/27/23 11:30 117 H 22 96 04/27/23 11:20 116 H 20 96 04/27/23 11:15 117 H 27 H 95 04/27/23 11:15 132/74 04/27/23 11:10 117 H 20 96 04/27/23 11:00 118 H 24 96 04/27/23 11:00 134/82 04/27/23 10:55 117 H 28 H 96 04/27/23 10:34 121 H 28 H 94 04/27/23 10:23 37.1 C 04/27/23 10:12 121 H 25 H 95 04/27/23 09:56 123 H 30 H 93 04/27/23 09:40 122 H 23 94 04/27/23 09:38 37 C 04/27/23 09:30 123 H 27 H 95 04/27/23 09:30 118/95 04/27/23 09:20 125 H 20 93 04/27/23 09:20 129/66 04/27/23 09:18 37 C 123 H 20 129/66 93 5 04/27/23 09:10 123 H 29 H 93 04/27/23 09:02 124 H 19 93 04/27/23 08:30 124 H 24 95 04/27/23 08:15 123 H 26 H 93 04/27/23 08:00 124 H 18 93 04/27/23 08:00 130/79 04/27/23 08:00 37 C 04/27/23 07:45 123 H 19 94 04/27/23 07:30 121 H 27 H 89 L 04/27/23 07:00 114 H 21 93 04/27/23 07:00 122/72 04/27/23 04:20 121 H 28 H 95 04/27/23 04:10 121 H 25 H 93 04/27/23 04:00 122 H 24 95 04/27/23 04:00 127/70 04/27/23 03:50 123 H 24 95 04/27/23 03:40 123 H 24 94 04/27/23 03:30 36.6 C 04/27/23 03:30 126 H 22 95 04/27/23 03:20 97 04/27/23 03:10 96 04/27/23 03:00 126 H 26 H 94 04/27/23 03:00 117/66 04/27/23 02:50 128 H 29 H 93 04/27/23 02:40 127 H 27 H 95 04/27/23 02:30 127 H 24 95 04/27/23 02:20 126 H 26 H 94 04/27/23 02:10 127 H 25 H 94 04/27/23 02:00 128 H 25 H 95 04/27/23 02:00 122/63 04/27/23 01:50 128 H 27 H 94 04/27/23 01:40 131 H 31 H 92 04/27/23 01:30 128 H 24 93 04/27/23 01:20 128 H 25 H 94 04/27/23 01:10 127 H 26 H 94 04/27/23 01:00 128 H 23 92 04/27/23 01:00 131/70 PG Care Time/CCT Total # of Minutes Spent Total Time Spent with Patient: Total time spent is greater than 50% in coordination of care (as documented) at patient's floor/unit and/or counseling patient: Coding Level of Care Code 83632 SUB INP/OBS CARE 3/50MIN Diagnoses SBO (small bowel obstruction) K56.609 Metastatic disease C79.9 Area of secondary neoplastic involvement: unspecified site Primary cervical cancer with metastasis to other site C53.9 (2) Metastatic disease Area of secondary neoplastic involvement: unspecified site Qualified Code(s): C79.9 - Secondary malignant neoplasm of unspecified site
--- NOTE | 2023-04-27 13:31 | Palliative Care Consultation ---
Date of Consultation April 27, 2023 Assessment & Plan (1) Cancer related pain: remains NPO TDF 12mcg + prn IV Dilaudid for now has had prior d/w OSH team re removing TDF but low dose of 12mcg has been in palce for a long time and kept her relatively comfortable. marinol added for additional relief but has not helped her gain any weight. She does have a medical THC acard so may seek re eval at dispensary which I encouraged her to do as it may help reduce opioid use by 30% or more in cancer pain mgt (2) Dyspnea and respiratory abnormalities: progressive pulm mets + pneumonitis related injury from keytruda (3) Abdominal pain, generalized: +SBO awaiting possible PEG (likely a venting G intent, not for ROSEANNA) (4) Nausea & vomiting: Vomiting type: unspecified Qualified Code(s): R11.2 - Nausea with vomiting, unspecified (5) Advanced care planning/counseling discussion: Met with patient [id number] at bedside for approximately 35 minutes. With her consent and voluntary participation we discussed serious illness and her overall goals of care. She tells me that she has had a serious conversation with her oncologist. Her has expressed worry that because she has been admitted so frequently and unable to have her scheduled chemotherapy doses, that her gemcitabine could be "the last chemo she can get." She advises me today that she spoke with her oncologist about this in [facility] and they advised that there are other chemotherapies that can be considered if Gemzar does not provide to be helpful for her. She also notes that she has a very practical understanding of her cancer and knows that without continued chemotherapy it is likely to progress at a faster than desired rate. If that should happen she would prefer transition to focus on comfort and quality of life and is open and receptive to the addition of home hospice. She tells me that they moved here to [place] from the [place] area to be closer to family, noting that 's family is settled in the [place] area. He works as a self- employed advisor consultant and therefore is able to work from any location, and occasionally travels to [place] to meet with his clients. She has a sister that she is very close to and who does come to help her as needed but has she has recently moved to [facility] from [place]. She is very close to her ptntxc-zy-mum as well as her in-laws here in [place] and also has a very good and ongoing relationship with her parents who remain in [facility] but can easily drive to see her and have no significant health issues that would create limitations for they are traveling to see her and help her. Overall she feels that she is very well supported and would be ready for hospice if further chemotherapy was not felt to offer a significant or meaningful benefit. She is awaiting a conversation with her medical oncologist after discharge. She would like to establish with an outpatient palliative medicine provider and notes that her care team in [facility] does not have palliative medicine there. I provided her with my contact information and she was agreeable to a follow-up outpatient appointment within 2 to 3 weeks of discharge. We briefly discussed CODE STATUS and for now she wishes to remain a full code. (6) Primary cervical cancer with metastasis to other site: (7) SBO (small bowel obstruction): (8) Palliative care by specialist: Met with pt/family. Provided overview of Palliative Medicine, a subspecialty that provides specialized medical care for people living with a serious illness by offering a focus on quality of life. Palliative Medicine is often conflated with hospice: I advised patient/family that Palliative and hospice can be partners but we are not the same. It is important to understand the difference so that we may be informed, and not afraid. Palliative Medicine works to improve QOL through reduction of symptom burden/more control over their illness, for both the patient and family. Palliative medicine clinicians are board certified, specially-trained and another member of the patient's medical care team. We often provide an extra layer of support because our care is based on the needs of the patient, not the prognosis; as such, it's appropriate at any age/advancing stage of a serious illness and can be provided along with curative treatment. Palliative Medicine clinicians are also trained in advanced communication methodologies, to facilitate complex discussions about advanced illness planning, which are needed to help assure that the treatment choices match the patient's goals, aka delivering Goal Concordant care. Finally, we discussed that hospice is a visiting nurse service that focuses on care delivered at the very end of life for patients with terminal illness, with life expectancy less than 6 month. Plan Cancer related pain management, CODE STATUS, advance care planning and serious illness discussions as noted above. Patient will follow-up with me in outpatient palliative medicine clinic within 2 to 3 weeks of hospital discharge. She understands that there will be a transition point in the future or further cancer directed therapy would not offer her meaningful benefit. She prioritizes quality of life over quantity of life and has had very latonya discussions with both her oncologist as well as her . Thank you for allowing us to participate in the ongoing care of this patient. Please don't hesitate to call or page with any additional concerns. Dr. Anita Duggan DNP Director, Palliative Care History of Present Illness Reason for Consultation: goals of care Attending Physician: Hilda Alves MD History of Present Illness Mrs Whitfield is a 52yo female admitted 04/25/23 from home w/Stage IV cervical cancer with metastasis to lungs, pelvis & vertebrae, chronic thrombosis right femoral vein, BLE thrombectomy and stenting on chronic Lovenox and Pletal, right ureteral stricture, history of adjustment disorder with anxiety, pelvic radiation 2016 (mets to lungs/bone, last treatment: gemcitabine 04/17/23, receives r3huoor at clinic in [place], [place]), prior pneumonitis while on Keytruda (last given 07/2022), and chronic prednisone 40 mg daily since 02/16/23 not on PJP prophylaxis. She came to [facility] ED with c/o abdominal pain, imaging revealed + SBO with transition point in RLQ. This admission has been complicated by hypoxia, tachycardia, and tenuous hemodynamics requiring transfer to ICU for close hemodynamic monitoring. Labs revealed GPC bacteremia and physical exam 04/26 concerning for possible zoster infection of left groin as well as acute on chronic LLE swelling and erythema. Initially patient started on stress dose hydrocortisone, IV Vanc/Zosyn/Acyclovir. ID consulted and blood cultures notable for GAS bacteremia at that time. Source thought to be the newly erythematous LLE which appear suspicious for cellulitis. The underlying concern with GAS is SSTI with a necrotizing soft tissue infection as well given GAS. ECHO did not reveal any concerning apparent vegetations, and per ID, this is less likely endocarditis pathogen, therefore will trend blood cultures for clearance. Admission has been further complicated by the acute hypoxemic respiratory failure, as well as increased patchy consolidations and cavitations of bilateral lower lungs. Patient has metastatic lung disease as well as prior pembrolizumab pneumonitis. She follows with medical oncology at [facility] in [facility]. She advises me that this is a satellite location for [facility]. She does not plan to leave or transfer her oncologic care but would like to establish with palliative care locally here in [place]. Admissions to date: 04/25/23 - current 03/28 - 04/01/23 for bowel obstruction 02/16 - 02/24/23 for bowel obstruction Anel has been having monthly admissions since January for recurrent bowel obstruction. Her gemcitabine regimen is every other week but notes that since January due to her frequent admissions, she is averaging once a month for her chemotherapy. She and her have had numerous conversations between themselves and then also more recently with her oncologist with regards to whether or not it is time to focus more on quality of life versus quantity of life. She has already decided she does not wish to focus on the quality of life nor does she wish to spend limited time remaining coming back and forth to the hospital or pursuing interventions that are not can offer meaningful benefit. Allergies Allergy/AdvReac Type Severity Reaction Status Date / Time cephalexin [From Keflex] Allergy Rash Verified 04/16/23 10:21 Home Medications Medication Instructions Recorded Confirmed Type cilostazol 50 mg tablet 50 mg PO BID 02/16/23 04/25/23 History cyclosporine 0.05 % eye drops in a 1 drp OPB BID 02/16/23 04/25/23 History dropperette (Restasis) fentanyl 12 mcg/hr transdermal 12 mcg transdermal Q72H 02/16/23 04/25/23 History patch gabapentin 100 mg capsule 200 mg PO BID 02/16/23 04/25/23 History melatonin 3 mg tablet 3 mg PO HS 02/16/23 04/25/23 History olanzapine 2.5 mg tablet 2.5 mg PO HS 02/16/23 04/25/23 History oxybutynin chloride 10 mg 10 mg PO PM 02/16/23 04/25/23 History tablet,extended release 24 hr polyethylene glycol 3350 17 gram 17 g PO DAILY 02/16/23 04/25/23 History oral powder packet (Miralax) varenicline 0.03 mg/spray nasal 1 spray intranasal BID 02/16/23 04/25/23 History spray (Tyrvaya) dronabinol 2.5 mg capsule 2.5 mg PO BID 03/28/23 04/25/23 History duloxetine 60 mg capsule,delayed 60 mg PO QAM 03/28/23 04/25/23 History release magnesium oxide 400 mg PO QAM 03/28/23 04/25/23 History sennosides 8.6 mg tablet (senna) 8.6 mg PO DAILY PRN Constipation 03/28/23 04/25/23 History dicyclomine 20 mg tablet 20 mg PO TID PRN Abdominal 04/25/23 04/25/23 History Discomfort enoxaparin 100 mg/mL subcutaneous 100 mg subcut BID 04/25/23 04/25/23 History syringe potassium chloride 20 mEq 20 meq PO QAM 04/25/23 04/25/23 History tablet,extended release prednisone 20 mg tablet 40 mg PO QAM 04/25/23 04/25/23 History Patient History Medical History (Updated 04/27/23 @ 15:34 by Anita Duggan DNP) SBO (small bowel obstruction) Chronic deep vein thrombosis (DVT) Primary cervical cancer with metastasis to other site Surgical History History of vascular surgery history bilateral lower extremity thrombectomy and stenting History of appendectomy History of hysterectomy Family History Father Cancer Other No significant family history Social History Smoking Status: Never smoker Hx Alcohol Use: No Hx Substance Use: No Preferred Language: Tuvaluan Communication Ability: Effective 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 She is resting in bed, semireclined. There is bitemporal wasting noted. Pupils are equal round and reactive to light. Extraocular movements are intact. Hair is thinning with some patchiness noted. Neck is supple and without stridor. Mild increased respiratory effort. Tachycardic with exertion. Abdomen is distended and firmer to touch. Bowel sounds are absent. There is mild generalized tenderness with palpation. There is tenderness located on her right posterior hip, right mid to posterior lower rib, as well as her left knee. She is able to move all extremities. Sensation is intact. Strength is diminished but equal throughout. There is generalized weakness noted. Skin is pale and cool to touch. There are some very pale mild duskiness noted in her nailbeds. She is awake, alert and oriented x 3. She is not delirious. CAM-ICU screen is negative. Results & Data Vital Signs (Past 12 Hours) Vital Signs Temp Pulse Resp BP Pulse Ox O2 Del Method O2 Flow Rate 04/27/23 12:17 37 C 04/27/23 12:10 111 H 25 H 96 04/27/23 12:00 115 H 21 96 04/27/23 11:30 120/85 04/27/23 11:30 117 H 22 96 04/27/23 11:20 116 H 20 96 04/27/23 11:15 117 H 27 H 95 04/27/23 11:15 132/74 04/27/23 11:10 117 H 20 96 04/27/23 11:00 118 H 24 96 04/27/23 11:00 134/82 04/27/23 10:55 117 H 28 H 96 04/27/23 10:34 121 H 28 H 94 04/27/23 10:23 37.1 C 04/27/23 10:12 121 H 25 H 95 04/27/23 09:56 123 H 30 H 93 04/27/23 09:40 122 H 23 94 04/27/23 09:38 37 C 04/27/23 09:30 123 H 27 H 95 04/27/23 09:30 118/95 04/27/23 09:20 125 H 20 93 04/27/23 09:20 129/66 04/27/23 09:18 37 C 123 H 20 129/66 93 5 04/27/23 09:10 123 H 29 H 93 04/27/23 09:02 124 H 19 93 04/27/23 08:30 124 H 24 95 04/27/23 08:15 123 H 26 H 93 04/27/23 08:00 Oxymask 4 04/27/23 08:00 111 H 04/27/23 08:00 124 H 18 93 04/27/23 08:00 130/79 04/27/23 08:00 37 C 04/27/23 07:45 123 H 19 94 04/27/23 07:30 121 H 27 H 89 L 04/27/23 07:00 114 H 21 93 04/27/23 07:00 122/72 04/27/23 04:20 121 H 28 H 95 04/27/23 04:10 121 H 25 H 93 04/27/23 04:00 122 H 24 95 04/27/23 04:00 127/70 04/27/23 03:50 123 H 24 95 04/27/23 03:40 123 H 24 94 04/27/23 03:30 36.6 C 04/27/23 03:30 126 H 22 95 04/27/23 03:20 97 04/27/23 03:10 96 04/27/23 03:00 126 H 26 H 94 04/27/23 03:00 117/66 04/27/23 02:50 128 H 29 H 93 04/27/23 02:40 127 H 27 H 95 04/27/23 02:30 127 H 24 95 04/27/23 02:20 126 H 26 H 94 04/27/23 02:10 127 H 25 H 94 04/27/23 02:00 128 H 25 H 95 04/27/23 02:00 122/63 04/27/23 01:50 128 H 27 H 94 04/27/23 01:40 131 H 31 H 92 04/27/23 01:30 128 H 24 93 Laboratory Results Data reviewed Diagnostic Findings Data reviewed PG Care Time/CCT Total # of Minutes Spent Total Time Spent: 90 Total Time Spent with Patient: Total time spent is greater than 50% in coordination of care (as documented) at patient's floor/unit and/or counseling patient: I spent 90 minutes overall addressing this case: 15 min in medical data review/discussion with referring provider(s) and/or preparation for the visit 20 min in direct interaction with the patient/exam 35 min in Advance Care Planning/Goals of Care discussions as detailed above in note (must be >16min) 10 min in subsequent review and synthesis of assessment and plan 10 min communicating with other providers regarding the patient's case: nursing, primary team Advanced Care Planning 39569 Advanced Care Planning 30 [place] [address] IN/OBS CONSULT LVL 5,80M Patient Type New History Comprehensive Exam Comprehensive Medical Decision Making High Complexity Diagnoses Cancer related pain G89.3 Dyspnea and respiratory abnormalities R06.00; R06.89 Abdominal pain, generalized R10.84 Nausea & vomiting R11.2 Vomiting type: unspecified Advanced care planning/counseling discussion Z71.89 Primary cervical cancer with metastasis to other site C53.9 SBO (small bowel obstruction) K56.609 Palliative care by specialist Z51.5 Additional Codes Advanced Care Planning - 28880 Advanced Care Planning 30 Min: [id number] Advanced Care Planning 30 Min ([id number])
--- NOTE | 2023-04-27 13:50 | Infectious Disease Progress Nt ---
Date of Service April 27, 2023 Assessment & Plan (1) Bacterial infection due to streptococcus, group A: (2) Sepsis: (3) Metastatic disease: (4) SBO (small bowel obstruction): (5) Chronic deep vein thrombosis (DVT): (6) Abdominal pain: (7) Primary cervical cancer with metastasis to other site: (8) Immunocompromised patient: (9) Abnormal chest CT: (10) Cavitary pneumonia: (11) Acute hypoxemic respiratory failure: (12) Cellulitis of left leg: (13) Rash of groin: Plan Anel Whitfield is a 52-year-old woman with metastatic cervical cancer s/p radical hysterectomy and appendectomy 2013, pelvic radiation 2016 (mets to lungs/bone, last treatment: gemcitabine 04/17/23, receives [id number] at clinic in [place], [place]), prior pneumonitis while on Keytruda (last given 07/2022) and has been on chronic prednisone 40 mg daily since 02/16/23, recent admissions 01/2023 and 03/2023 for SBOs, DVT, who presents to [facility] on 04/25/23 after developing abd pain, n/v, found to have possible SBO, acute hypoxemic respiratory failure, LLE erythema c/f SSTI, also with new L inguinal/truncal erythematous rash, and 04/25 Group A Strep bacteremia. Pts GAS may be from SSTI, also with spreading L truncal rash which could be c/f SSTI vs. NSTI, vs. other non-infectious process (?hemorrhage). 04/26 CT chest with extensive bilateral cavitations of unclear etiology; have started IV Bactrim for possible PJP. With GAS bacteremia in 4/4 bottles. Source may be LLE, which was newly erythematous and swollen on 04/25 and resembling cellulitis/SSTI. Also with new truncal/inguinal rash on 04/26. This was initially c/f Shingles given possibly dermatomal location however is now spreading past midline. The rash continues to spread, now throughout her lower abd and flank/back area. This spread could be c/f NSTI and would have low threshold for involvement of surgery. Also consider whether the petechial nature of the rash may reflect underlying hemorrhage (?Gilliam-Turners sign). GAS is a less likely pathogen for endocarditis but would nevertheless favor evaluating for deep-seated infection. Would repeat BCx to confirm clearance. 04/26 TTE without mass or vegetation. PT with port in place and also with known chronic nonocclusive RLE thrombus. With acute hypoxemic respiratory failure and CT A/P showing patchy consolidations with cavitations in lower lung, CXR with extensive patchy cavitary consolidations. Patient with a history of pneumonitis from Keytruda and with known lung mets. She is not on home O2 but is now hypoxemic. She has been on prednisone 40 mg daily since 01/2023, without PJP ppx. Would be highly concerned about PJP although difficult to discern which of her lung findings are new (prior to starting steroids, her 02/16 CT also with multiple irregular nodules, GGOs, central cavitation). Would be concerned for infectious component of her imaging findings. Especially with her chronic prednisone use, now with wide ddx including PJP, endemic fungi, Aspergillus, and other fungal pna. Will send PJP PCR in sputum, BDG, and also Aspergillus Ag and Histo UrAg. 04/26 serum LDH normal at 169. Will also send for bacterial SpCx, fungal SpCx, and AFB sputum (to evaluate for NTM/MAC). Can continue pip-tazo which will cover GAS bacteremia as well as possible bacterial HAP. Will change vancomycin to linezolid for anti-toxin effect given spreading truncal/inguinal rash, though will monitor blood counts carefully, and note that pt also on other serotonergic meds. With leukopenia (~2 weeks after gemcitabine). If this is persistent/worsening would consider G-CSF. Reasonable to continue acyclovir for now, though pts abd/inguinal rash thus far without vesicles and Shingles less likely at this time. Given the pts persistent respiratory failure, and 04/26 CT chest with worsening extensive bilateral cavitations and GGOs, will start treatment-dose IV Bactrim for PJP, as well as voriconazole + caspofungin for possible pulmonary Aspergillus/mold infection, especially while PJP/fungal studies are pending. (Note that posaconazole and isavuconazole are not on formulary at [facility]; if further clinical worsening or concern for Histo or Mucor, would require escalation to [facility]). ID Problem List: 1.Group A Strep bacteremia 2.Immunosuppression due to chronic steroid use and chemotherapy for cervical cancer 3.Possible LLE SSTI 4.L-sided truncal/inguinal rash, possible SSTI/NSTI, possible Shingles 5.Chronic steroid use, not on PJP prophylaxis 6.Acute hypoxemic respiratory failure, [id number] pulmonary GGOs and cavitary lung lesions, cavitary pneumonia 7.History of pneumonitis from Keytruda 8.Leukopenia Recommendations: - Continue linezolid 600 mg IV BID (IV because of SBO) for antitoxin effect in setting of known GAS infection. Monitor blood counts closely, also note that pt also on serotonergic medications. - Continue pip-tazo 4.5 g IV q8h - Start treatment-dose IV Bactrim 235 mg IV q8h for PJP while awaiting additional testing. Pt already on steroids. - Start voriconazole (loading 6 mg/kg IV Q12H x2 doses, followed by 4mg/kg IV Q12H) and caspofungin (70 mg IV today, followed by 50 mg IV daily) combination therapy for possible Aspergillus/fungal infection, while awaiting studies for fungal pna. - Agree with stopping acyclovir given that rash is atypical for Shingles - Closely monitor spreading truncal rash with low threshold for engagement of surgery for NSTI, consideration of abdominal hemorrhage. - F/u: sputum bacterial cx / fungal cx / AFB cx (eval for NTM/MAC), PJP PCR in sputum, Legionella UrAg, BDG, Aspergillus Ag, Histo UrAg, Crypto Ag - F/u repeat BCx ordered for 04/26 to confirm clearance of GAS ID will continue to follow, but does not monitor the chart or round over the weekend; covering physician can be contacted at [phone] ([facility] for telephonic consultation if needed. I will resume care of the ID service on Sunday. Anum Desir MD, MHS Infectious Diseases [facility]/ID Connect ID Connect direct line: [phone] Admission and Anticipated Discharge Date Admission Date: April 25, 2023 Subjective Subsequent visit was provided via telemedicine using two-way real-time interactive telecommunication between the patient and the telemedicine provider. For the duration of the visit, the provider was performing the assessment from a different facility than the patient. This includesuse of bluetooth stethoscope forauscultationperformed by the telepresenter that the telemedicine provider can hear if described in the physical exam. Craft Coordinator contact information: Please call ID Connect Call Center . (Phone Number For Physician Use Only) After establishing a telemedicine visit, patient was: Patient was verified with two unique identifiers, Patient/authorized rep acknowledged consent and understanding and Gave permission to continue telehealth session Time Spent with Patient: Subsequent => 55 min Physical Exam Physical Exam: Exam obtained with aid of in-person telepresenter. General: Wearing Oxymask, able to speak HEENT: Conjunctivae non-injected, sclerae anicteric, MMM, OP clear. Resp: Wearing Oxymask Abd: Soft, nontender, nondistended. Normal bowel sounds throughout. No masses or organomegaly. Back: No tenderness to palpation along spine Ext: LLE with warmth, swelling, redness, and tenderness around the foot and ankle. L knee pain, ROM slightly improving. L inguinal/truncal region with erythematous ?petechial rash, slightly warm and tender, which has spread past midline and now is involving entire lower abdomen and has also spread posteriorly to L back/flank. No vesicles at this time. Skin: As above. Neuro: Alert & interactive. Grossly non-focal. Psych: Pleasant, appropriate. Results & Data Vital Signs (Past 12 Hours) Vital Signs Temp Pulse Resp BP Pulse Ox O2 Del Method O2 Flow Rate 04/27/23 12:17 37 C 04/27/23 12:10 111 H 25 H 96 04/27/23 12:00 115 H 21 96 04/27/23 11:30 120/85 04/27/23 11:30 117 H 22 96 04/27/23 11:20 116 H 20 96 04/27/23 11:15 117 H 27 H 95 04/27/23 11:15 132/74 04/27/23 11:10 117 H 20 96 04/27/23 11:00 118 H 24 96 04/27/23 11:00 134/82 04/27/23 10:55 117 H 28 H 96 04/27/23 10:34 121 H 28 H 94 04/27/23 10:23 37.1 C 04/27/23 10:12 121 H 25 H 95 04/27/23 09:56 123 H 30 H 93 04/27/23 09:40 122 H 23 94 04/27/23 09:38 37 C 04/27/23 09:30 123 H 27 H 95 04/27/23 09:30 118/95 04/27/23 09:20 125 H 20 93 04/27/23 09:20 129/66 04/27/23 09:18 37 C 123 H 20 129/66 93 5 04/27/23 09:10 123 H 29 H 93 04/27/23 09:02 124 H 19 93 04/27/23 08:30 124 H 24 95 04/27/23 08:15 123 H 26 H 93 04/27/23 08:00 Oxymask 4 04/27/23 08:00 111 H 04/27/23 08:00 124 H 18 93 04/27/23 08:00 130/79 04/27/23 08:00 37 C 04/27/23 07:45 123 H 19 94 04/27/23 07:30 121 H 27 H 89 L 04/27/23 07:00 114 H 21 93 04/27/23 07:00 122/72 04/27/23 04:20 121 H 28 H 95 04/27/23 04:10 121 H 25 H 93 04/27/23 04:00 122 H 24 95 04/27/23 04:00 127/70 04/27/23 03:50 123 H 24 95 04/27/23 03:40 123 H 24 94 04/27/23 03:30 36.6 C 04/27/23 03:30 126 H 22 95 04/27/23 03:20 97 04/27/23 03:10 96 04/27/23 03:00 126 H 26 H 94 04/27/23 03:00 117/66 04/27/23 02:50 128 H 29 H 93 04/27/23 02:40 127 H 27 H 95 04/27/23 02:30 127 H 24 95 04/27/23 02:20 126 H 26 H 94 04/27/23 02:10 127 H 25 H 94 04/27/23 02:00 128 H 25 H 95 04/27/23 02:00 122/63 04/27/23 01:50 128 H 27 H 94 Diagnostic Findings Diagnostics: 04/26 CT Chest 1. Extensive bilateral mixed interstitial and alveolar opacities with irregular consolidative, centrally cavitary foci again seen within a multilobar distribution bilaterally. Findings have moderately worsened compared to the 03/28/[address] As previously discussed, differential considerations include pulmonary metastasis, cavitary pneumonia versus septic emboli. 2. Generally stable appearance of the pathologic mediastinal and hilar lymphadenopathy. 3. No pleural effusion. 5.Persistent small bowel obstruction. 04/26/23 TTE: No mass or vegetations seen. Hyperdynamic LV 04/26/23 Venous duplex Chronic nonocclusive thrombus extends the length of one of 2 superficial femoral veins on the right, patient has a duplicated system. There may be minimal nonocclusive extension into the proximal popliteal vein. There is also partially occlusive thrombus of one of 2 posterior tibial veins. Overall the extent of thrombus has improved from the prior exam. No left lower extremity DVT is seen. There is lymphedema in the left leg with probable shingles in the groin and lower abdomen. 04/25/23 CXR 1. Extensive multifocal cavitary airspace opacities , slightly increased since prior exam. Given clinical history, the findings may reflect metastatic cervical cancer. Cavitary pneumonia, septic emboli and fungal infection are also within the differential. 2.Satisfactory positioning of the nasogastric tube. Redemonstration small bowel dilatation suggestive of a small bowel obstruction. 04/25/2023 CT A/P 1. Patchy consolidations with cavitations throughout the lower lungs may represent infectious/inflammatory process. Component of neoplastic process is not excluded. 2. Dilated fluid and gas-filled small bowel loops, concerning for small bowel obstruction with transition point in the right lower quadrant. 3. Mild prominence of the bladder wall is nonspecific. Please correlate with urinalysis if concerned for cystitis. 4. Nonspecific similar lucent lesions in the lower thoracic and lumbar spine. Question osseous metastases versus hemangiomas. 5. Fluid in the rectum. Decompressed colon limits evaluation. 6. Small amount of ascites. Question nodularity in the lower abdomen which could be secondary to peritoneal carcinomatosis. Questionable abnormal soft tissue abscess involving small bowel, colon, and the right aspect of the bladder. 03/28/2023 CT Chest 1. Again seen are multiple scattered irregular nodules throughout both lungs, the majority of which show cavitation. These lesions show surrounding groundglass halo/consolidation. These findings likely represent metastatic cervical cancer. Superimposed pneumonia is not excluded. An atypical fungal infection, multifocal/cavitary pneumonia, and/or septic emboli could potentially appear similar. Clinical correlation will be essential. 2. There is no pleural effusion. 3. Hilar adenopathy is suspected but not well evaluated. There are mildly enlarged mediastinal nodes. 4. Perihepatic ascites. Micro Summary: 04/26 Sputum, expectorated PJP PCR: pending Bacterial: squams AFB: pending 04/26 BCx x2: NGTD 04/26 CrAg: pending 04/26 Histo UrAg: pending 04/26 Legionella UrAg: pending 04/26 serum Aspergillus Ag: pending 04/26 Quantiferon: pending 04/26 VZV Ab: pending 04/26 beta-1,3-D-glucan: pending 04/26 UA: 5-10 WBCs, 0-4 RBCs, >30 epis 04/26 MRSA nares: neg 04/25 BCx x2: 4/4 GPCs (BCID + group A Strep) 04/25 respiratory viral Biofire PCR panel: neg Antibiotic Summary: IV Bactrim (04/27 present) voriconazole (04/27 present) caspofungin (04/27 present) pip-tazo (04/26 present) linezolid (04/26 present) Prior acyclovir (04/26) vancomycin (04/26) metronidazole (04/25) Other notable meds prednisone 40 mg daily since 01/2023 hydrocort while inpatient (2) Sepsis Sepsis type: sepsis due to unspecified organism Sepsis acute organ dysfunction status: with acute organ dysfunction Severe sepsis acute organ dysfunction type: acute respiratory failure Acute respiratory failure type: with hypoxia Severe sepsis shock status: without septic shock Qualified Code(s): A41.9 - Sepsis, unspecified organism; R65.20 - Severe sepsis without septic shock; J96.01 - Acute respiratory failure with hypoxia (3) Metastatic disease Area of secondary neoplastic involvement: unspecified site Qualified Code(s): C79.9 - Secondary malignant neoplasm of unspecified site
[2023-04-27] MEDS: CASPOFUNGIN 70 MG in SODIUM CHLORIDE 0.9% 250 ML IV ONE ×2 (15:20→18:35)
[2023-04-27] MEDS: SODIUM CHLORIDE 0.9% IV SCH (15:32)
[2023-04-27] MEDS: VORICONAZOLE IV SCH (15:32)
[2023-04-27] MEDS ORDERED: CASPOFUNGIN 70 MG in SODIUM CHLORIDE 0.9% 250 ML IV ONE (16:00)
--- NOTE | 2023-04-27 17:36 | Electrocardiogram Report ---
Test Reason : Blood Pressure : / mmHG Vent. Rate : 119 BPM Atrial Rate : 119 BPM P-R Int : 114 ms QRS Dur : 080 ms QT Int : 306 ms P-R-T Axes : 035 054 026 degrees QTc Int : 430 ms Sinus tachycardia Otherwise normal ECG When compared with ECG of 26-APR-2023 02:07, No significant change was found Confirmed by Yo Higgins ([id number]) on 04/27/2023 5:35:58 PM Referred By: REFERRED SELF Confirmed By:Олег Higgins
[2023-04-27 17:59] LABS: Hemoglobin 7.5 g/dl (12.0-16.0)
[2023-04-27] MEDS: HYDROCORTISONE SOD 50 MG in SYRINGE 0 ML IV SCH (20:03)
[2023-04-27 20:12] LABS: ANTI-Xa, UFH(UnfractionatedHep 0.14 IU/ml (0.3-0.7)
[2023-04-27] MEDS ORDERED: HEPARIN SOD (PORCINE) 1000 UNIT/ML IV ONE (20:33)
[2023-04-27] MEDS: HEPARIN IV BOLUS 2,000 UNITS in SYRINGE 0 ML IV ONE (21:14)
[2023-04-28 04:38] LABS: BUN Creatinine Ratio 20.9 (10-20); Calcium 7.9 mg/dl (8.6-10.3); Creatinine Clr Calc Pharmacy 113.6 ml/min; Est GFR (African American) 135.5 ml/min; Est GFR (Non-African American) 116.9 ml/min; Magnesium 1.9 mg/dl (1.7-2.4); Phosphorus 2.1 mg/dl (2.5-4.9); Potassium 3.2 mmol/L (3.5-5.1)
[2023-04-28 04:44] LABS: ANTI-Xa, UFH(UnfractionatedHep 0.13 IU/ml (0.3-0.7)
[2023-04-28 05:13] LABS: Basophils # (auto) 0.02 K/uL (0.00-0.20); Basophils % (auto) 0.2 %; Dohle Bodies 1+; Echinocytes 1+; Eosinophils # (auto) 0.01 K/uL (0.00-0.50); Eosinophils % (auto) 0.1 %; Hematocrit (blood only) 23.1 % (37.0-47.0); Hemoglobin 6.9 g/dl (12.0-16.0); Immature Granulocytes # (auto) 0.04 K/uL (0.01-0.20); Immature Granulocytes % (auto) 0.4 %; Lymphocytes # (auto) 0.25 K/uL (1.20-3.40); Lymphocytes % (auto) 2.4 %; Mean Corpuscular Hemoglobin 22.2 pg (25.0-34.0); Mean Corpuscular Hgb Conc 29.9 g/dL (32.0-36.0); Mean Corpuscular Volume 74.3 fL (80.0-100.0); Mean Platelet Volume 10.8 fL (9.4-12.4); Monocytes % (auto) 3.9 %; Neutrophils # (auto) 9.49 K/uL (1.40-6.50); Nucleated RBC # (auto) 0.02 K/uL (0.00-0.12); Nucleated RBC % (auto) 0.2 %; Ovalocytes 1+; Platelet Count 192 K/uL (130-400); RDW Coefficient of Variation 19.7 % (11.5-14.5); RDW Standard Deviation 50.5 fL (36.4-46.3); Red Blood Count 3.11 M/uL (4.20-5.40); Tear Drop Cells 1+; White Blood Count 10.21 K/ul (4.8-10.8)
[2023-04-28] MEDS ORDERED: SODIUM CHLORIDE 0.9% 250 ML IV PRN ×2 (05:16→07:57)
[2023-04-28] MEDS: MAGNESIUM SULFATE / D5W 1 GM/100 ML BAG IV ONE (05:58)
--- NOTE | 2023-04-28 06:07 | Communication Note ---
Date of Service: April 28, 2023 RN expressed concerns regarding persistently low factor Xa levels following IV heparin protocol despite multiple boluses. Pharmacy recommended PTT draw and consulting Dr. Lee ([facility] transfusion specialist) once resulted. Will relay to AM provider.
[2023-04-28] MEDS: POTASSIUM CHLORIDE / WTR 10 MEQ/100 ML PLCT IV SCH (06:16)
[2023-04-28 08:08] LABS: Partial Thromboplastin Ratio 1.6; Partial Thromboplastin Time 46 Seconds (21-31)
[2023-04-28] MEDS ORDERED: ENOXAPARIN 1 MG/KG SC SCH (09:00)
[2023-04-28] MEDS: ENOXAPARIN INJ 60 MG/0.6 ML SYR SQ SCH (10:24)
--- NOTE | 2023-04-28 11:24 | Pulmonology Progress Note ---
Date of Service April 28, 2023 Assessment & Plan (1) Immunocompromised patient: (2) Bacteremia due to Gram-positive bacteria: (3) Sepsis: Acute respiratory failure type: with hypoxia Sepsis acute organ dysfunction status: with acute organ dysfunction Sepsis type: sepsis due to unspecified organism Severe sepsis acute organ dysfunction type: acute respiratory failure Severe sepsis shock status: without septic shock Qualified Code(s): A41.9 - Sepsis, unspecified organism; R65.20 - Severe sepsis without septic shock; J96.01 - Acute respiratory failure with hypoxia (4) Tachycardia: (5) Metastatic disease: Area of secondary neoplastic involvement: unspecified site Qualified Code(s): C79.9 - Secondary malignant neoplasm of unspecified site (6) SBO (small bowel obstruction): (7) Abnormal chest CT: (8) Rash: (9) Cellulitis: Plan Reason: 52-year-old male present to the hospital with complaints of nausea vomiting abdominal pain and generalized lethargy Past medical history: Cervical cancer diagnosed 2013 s/p radical hysterectomy and radiation with relapse and metastasis in 2017, on chemo, thrombosis of the right femoral vein on Lovenox, on 40 mg of prednisone for pneumonitis -- Acute on chronic hypoxic respiratory failure CT chest shows groundglass patchy opacities along with cystic/cavitary lesions Worsened compared to CT chest March 2023 This could represent changes from the metastatic disease after chemotherapy as well as pneumonitis versus infectious process Given the patient is on 40 mg of prednisone which was started after the CAT scan in January. Probability of PJP is there but low CT chest 04/27/2023 personally reviewed: Diffuse patchy opacities appreciated bilaterally upper and lower lobes with cavitary lesions This has worsened compared to CT of the chest in March 2023 No significant mediastinal lymphadenopathy --On chronic 40 mg prednisone for approximately 2 months Will benefit from PJP prophylaxis with Bactrim Yrfzoy-Rddzlztyr-Rczszh --Cavitary lesions with patchy opacities bilaterally They are not groundglass anymore look more consolidative process LDH within normal limit PJP treatment has been started by infectious disease on 04/27/2023 Caspofungin has been added by ID for possible fungal infection especially Aspergillus in the lung Follow-up beta D glucan, histoplasma, cryptococcal and coccidioidal antigen -- On therapeutic Lovenox Plan: In/out: Patient is +14 L since coming to the hospital, although we do not have a good urine output measurement. I still think we need to keep a close eye on IV fluids Antibiotic and antifungal regimen as per infectious disease Tentative plan for bronchoscopy Sunday04/30/2023. Risk and benefit of the procedure were explained to the patient in front of the and they are agreeable to it Please note the above document was generated using voice recognition software. It may contain grammatical, syntax or spelling errors.Any formal questions or concerns about the content, text or information contained within the body of this dictation should be directly addressed to the provider for clarification. Admission and Anticipated Discharge Date Admission Date: April 25, 2023 Subjective Patient seen and examined at bedside. No acute distress, notable since overnight She had a bowel movement today. NG tube has been removed Denies any nausea or vomiting She was saturating 90-91% on room air. was also in the room. Coughing up clear phlegm. Denies any hemoptysis No headache, no blurry vision Shortness of breath is also improved Review of Systems 2 Review of Systems: All systems reviewed & are unremarkable except as noted in Subjective Physical Exam 2 Physical Exam: Constitutional: No acute distress, frail-appearing HEENT: EOMI, PERRLA Respiratory system: Good air entry bilaterally, no wheeze, no rhonchi, positive crackles bilaterally anteriorly and posteriorly CVS: S1-S2 positive, no murmurs or gallops, tachycardia Abdomen: Soft, nontender, nondistended, positive bowel sounds x4 Extremities: +2 pulses bilaterally radialis/ dorsalis pedis, no cyanosis, +3 left lower extremity edema, mild rubor, mild calor, mild rubor left lower extremity which is new as per the patient Neuro: Awake alert oriented x3 Psych: Normal mood and affect G/U: No Wright Skin: no rashes, warm and dry Lymphatic: no cervical or axillary lymphadenopathy Results & Data Results & Data Vital Signs (Past 12 Hours) Vital Signs Temp Pulse Pulse Resp BP BP Pulse Ox 04/28/23 07:49 36.4 C L 108 H 18 103/66 91 04/28/23 06:50 36.6 C 108 H 22 122/70 93 04/28/23 02:53 37 C 04/28/23 02:40 105 H 25 H 98 04/28/23 02:30 109 H 20 96 04/28/23 02:20 117 H 27 H 97 04/28/23 02:10 113 H 26 H 84 L 04/28/23 02:00 109 H 25 H 91 04/28/23 02:00 132/88 04/28/23 01:50 111 H 28 H 90 04/28/23 01:40 122 H 47 H 87 L 04/28/23 01:30 113 H 25 H 88 L 04/28/23 01:20 94 H 21 91 04/28/23 01:10 97 H 21 89 L 04/28/23 01:00 97 H 22 92 04/28/23 01:00 104/62 04/28/23 00:50 99 H 22 90 04/28/23 00:40 100 H 21 90 04/28/23 00:30 99 H 18 90 04/28/23 00:20 100 H 21 90 04/28/23 00:10 101 H 20 92 04/28/23 00:00 124/79 04/28/23 00:00 106 H 22 92 04/27/23 23:50 103 H 19 86 L 04/27/23 23:40 104 H 22 91 04/27/23 23:30 106 H 28 H 90 O2 Del Method O2 Flow Rate 04/28/23 07:49 Room Air 04/28/23 06:50 5 04/28/23 02:53 04/28/23 02:40 04/28/23 02:30 04/28/23 02:20 04/28/23 02:10 04/28/23 02:00 04/28/23 02:00 04/28/23 01:50 04/28/23 01:40 04/28/23 01:30 04/28/23 01:20 04/28/23 01:10 04/28/23 01:00 04/28/23 01:00 04/28/23 00:50 04/28/23 00:40 04/28/23 00:30 04/28/23 00:20 04/28/23 00:10 04/28/23 00:00 04/28/23 00:00 04/27/23 23:50 04/27/23 23:40 04/27/23 23:30 Laboratory Results 04/28/23 03:40 04/28/23 03:40 PG Care Time/CCT Total # of Minutes Spent Total Time Spent with Patient: Total time spent is greater than 50% in coordination of care (as documented) at patient's floor/unit and/or counseling patient: Coding Level of Care Code 99378 SUB INP/OBS CARE 350MIN Diagnoses Immunocompromised patient D84.9 Bacteremia due to Gram-positive bacteria R78.81 Sepsis with acute hypoxic respiratory failure without septic shock, due to unspecified organism A41.9; R65.20; J96.01 Acute respiratory failure type: with hypoxia Sepsis acute organ dysfunction status: with acute organ dysfunction Sepsis type: sepsis due to unspecified organism Severe sepsis acute organ dysfunction type: acute respiratory failure Severe sepsis shock status: without septic shock Tachycardia R00.0 Metastatic disease C79.9 Area of secondary neoplastic involvement: unspecified site SBO (small bowel obstruction) K56.[address] R93.89 Rash R21 Cellulitis L03.90
[2023-04-28 11:57] LABS: Adenovirus F 40/41 PCR Not Detected (NotDetected); Astrovirus PCR Not Detected (NotDetected); Campylobacter PCR Not Detected (NotDetected); Cryptosporidium PCR Not Detected (NotDetected); Cyclospora cayetanensis PCR Not Detected (NotDetected); Entamoeba histolytica PCR Not Detected (NotDetected); Enteroaggregative E.coli(EAEC) Not Detected (NotDetected); Enteropathogenic E.coli (EPEC) Not Detected (NotDetected); Enterotoxigenic E.coli (ETEC) Not Detected (NotDetected); Giardia lamblia PCR Not Detected (NotDetected); Norovirus GI/GII PCR Not Detected (NotDetected); Plesiomonas shigelloides PCR Not Detected (NotDetected); Rotavirus A PCR Not Detected (NotDetected); Salmonella PCR Not Detected (NotDetected); Sapovirus PCR Not Detected (NotDetected); Shiga-like Toxin E.coli (STEC) Not Detected (NotDetected); Shigella/Enteroinvasive E.coli Not Detected (NotDetected); Vibrio cholerae PCR Not Detected (NotDetected); Vibrio species PCR Not Detected (NotDetected); Yersinia enterocolitica PCR Not Detected (NotDetected)
--- NOTE | 2023-04-28 12:59 | Hospitalist Progress Note ---
Date of Service April 28, 2023 Assessment & Plan (1) Sepsis: (2) Bacteremia due to Gram-positive bacteria: (3) Immunocompromised patient: Plan Ms. Whitfield is a 52 year old female with PMH stage IV cervical cancer with metastasis to lungs, pelvis & vertebrae, chronic thrombosis right femoral vein, BLE thrombectomy and stenting on chronic Lovenox and Pletal, right ureteral stricture, history of adjustment disorder with anxiety, pelvic radiation 2016 (mets to lungs/bone, last treatment: gemcitabine 04/17/23, receives [id number] at clinic in [place], [place]), prior pneumonitis while on Keytruda (last given 07/2022), and chronic prednisone 40 mg daily since 02/16/23 not on PJP ppx, presented with abdominal pain and found to have small bowel obstruction on CT imaging with transition point in RLQ. Patient initially admitted on 04/25 for management of SBO; however, course com plicated by hypoxia, tachycardia, and tenuous hemodynamics. Patient transferred to ICU for close hemodynamic monitoring. Blood culture on admission showed group A beta strep; sensitive to penicillin. Likely source was thought left lower leg cellulitis. Labs revealed GPC bacteremia and physical exam 04/26 concerning for possible zoster infection of left groin as well as acute on chronic LLE swelling and erythema. Initially patient started on stress dose hydrocortisone, IV Vanc/Zosyn/Acyclovir. ID consulted and blood cultures notable for GAS bacteremia at that time. Source thought to be the newly erythematous LLE which appear suspicious for cellulitis. The underlying concern with GAS is SSTI with a necrotizing soft tissue infection as well given GAS. ECHO was with out apparent vegetations, and per ID note less likely endocarditis pathogen, therefore will trend blood cultures for clearance. Course further complicated by the acute hypoxemic respiratory failure, as well as increased patchy consolidations and cavitations of bilateral lower lungs. Patient has metastatic lung disease as well as prior pembrolizumab pneumonitis, Current infectious work up ordered thus far: [ ] PJP PCR pending [ ] Beta D Glucan pending [ ] Aspergillus pending [ ] Histo pending [ ] AFB sputum pending [ ] Fungal Sputum pending [ ] Bacterial Sputum pending 04/26/2023 Blood Culture 4/4 GAS 04/27/2023 Blood Culture NGTD #Sepsis, POA 2/2 GAS bacteremia POA, Left lower leg cellulitis #Immunocompromised Blood Cultures 04/25 07/04 + GAS UA noninfectious appearance Source likely left leg cellulitis MRSA negative ECHO without vegetations/mass Infectious Disease on consult, reviewed following recommendations -GAS less likely pathogen for endocarditis, ECHO completed w/o visible vegetations -Repeat blood culture negative so far -Vancomycin transitioned to Linezolid for antitoxin effect iso GAS -Continue Zosyn for GAS bacteremia and HAP coverage iso resp failure -Monitor clinical improvement, consider antifungal coverage On IV fluids at 50 cc/h -Continue Hydrocortisone 50mg q12h for sepsis #Acute hypoxic respiratory failure, multifactorial CT chest from 04/27 shows extensive bilateral mixed interstitial and alveolar opacities with irregular consolidative, centrally cavitary foci. Worsened compared to previous CT. Possible differentials include PJP pneumonia, pneumonitis from Keytruda, multifocal pneumonia. On full dose bactrim per ID, will deescalate to ppx dose contingent upon return of PJP PCR Patient also on Capsofungin and voriconazole for possible fungal pneumonia. Aspergillus antigen and histo urine antigen pending. Wean oxygen as tolerated. Await cultures result for PJP, Aspergillus and histo antigen. Will follow-up on recommendation by infectious disease. #Acute on chronic small bowel obstructions Recent admission managed conservatively, follows OP Gen Surgery on 04/16 regarding symptoms and encouaged to hydrate, trial of bentyl CT ABD on admission shows a small bowel obstruction with transition point in RLQ Patient reported + flatus, bowel movement on April 28. She wanted to remove NG tube and trial of CLD. Started on clear liquid diet. Close monitoring for return of vomiting. #Acute anemia, likely 2/2 ongoing sepsis, dilutional component #Anemia of chronic disease Status post 2 units of packed RBC. No signs or symptoms of bleeding. Continue CBC daily. Transfuse if hemoglobin is less than 7 #Hypercoagulability 2/2 metastatic disease #Chronic R fem thrombosis, BLE thrombectomy #Acute on Chronic Left lower extremity Lymphedema #Chronic Anticoagulation -Dopplers with chronic nonocclusive thrombus RLE extent "improved from prior" per read, correction from prior note NO left LE dvt Will change heparin to Lovenox as anti-Xa heparin level is persistently low. Patient is at 100 mg Lovenox twice daily. She reports that it was started when her weight was higher. Discussed with patient and regarding Lovenox 50 mg twice a day based on her weight presently. She is agreeable with that. Obtain anti-Xa level tomorrow 4 hours after Lovenox dose(3rd dose) to ensure it is within therapeutic range. Dose might be needed to be changed depending on anti-Xa level. Continue cilostazol 50mg BID, monitor platelets on CBC #Primary cervical cancer with metastatic disease Know mets to lungs, pelvis, vertebra CT scan with cavitary lesions, increased since imaging obtained 03/28 Last treatment: 04/17~, received gemcitabine q2 weeks in [place] clinic -Continue fentanyl patch, duloxetine 60mg, Gabapentin 200mg BID #Sinus Tachycardia #Prolonged QTc Reports baseline HR in low 100s, ranging 120-150s on admission Likely multifactorial, hypoxia/sepsis Continue telemetry and hemodynamic monitoring in ICU QTc improved 04/27, 446 from 500 #Hypokalemia #Hypomagnesemia -Repleted #KARIN *, resolved -Cr up to 1.3, now downtrending with IVF -Continues to be on IV fluids for now #Severe protein calorie malnutrition -BMI 17.81, iso chronic illness/metastatic disease 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, 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 Patient and open to rediscuss CODE STATUS depending on patient's clinical status. For the time beingshe is okay with a trial of CPR and intubation if it is for short-term only. Dispositionpatient hospitalized with multiple issues outlined above. PT OT ordered. Time spent evaluating patient, direct bedside care, chart review, placing orders, interpretation of diagnostic studies, discussion with consultants, patient, and family members, as well as other required patient management activities is 75 minutes Please note the above document was generated using voice recognition software. It may contain grammatical, syntax or spelling errors. Any formal questions or concerns about the content, text or information contained within the body of this dictation should be directly addressed to the provider for clarification Admission and Anticipated Discharge Date Admission Date: April 25, 2023 Subjective Patient seen and examined at bedside. Patient reports passing flatus and having bowel movement. Abdominal pain is minimal. Review of Systems Review of Systems: All systems reviewed & are unremarkable except as noted in Subjective Physical Exam Physical Exam: GENERAL: AAO x 3; not in any distress. CHEST : Bilateral vesicular breath sound. HEART : Tachycardic, no obvious murmurs ABDOMEN: Slight distention. Nontender. No erythema noted. EXTREMITIES : Left leg swelling present from thigh to leg. Blanching redness present. NEUROLOGIC : Coherent, no facial asymmetry, no other gross focality Results & Data Results & Data Vital Signs (Past 12 Hours) Vital Signs Temp Pulse Pulse Pulse Resp BP BP 04/28/23 12:29 36.6 C 116 H 20 114/72 04/28/23 07:49 36.4 C L 108 H 18 103/66 04/28/23 06:50 36.6 C 108 H 22 122/70 04/28/23 02:53 37 C 04/28/23 02:40 105 H 25 H 04/28/23 02:30 109 H 20 04/28/23 02:20 117 H 27 H 04/28/23 02:10 113 H 26 H 04/28/23 02:00 109 H 25 H 04/28/23 02:00 132/88 04/28/23 01:50 111 H 28 H 04/28/23 01:40 122 H 47 H 04/28/23 01:30 113 H 25 H 04/28/23 01:20 94 H 21 04/28/23 01:10 97 H 21 04/28/23 01:00 97 H 22 04/28/23 01:00 104/62 Pulse Ox O2 Del Method O2 Flow Rate 04/28/23 12:29 91 Nasal Cannula 2.0 04/28/23 07:49 91 Room Air 04/28/23 06:50 93 5 04/28/23 02:53 04/28/23 02:40 98 04/28/23 02:30 96 04/28/23 02:20 97 04/28/23 02:10 84 L 04/28/23 02:00 91 04/28/23 02:00 04/28/23 01:50 90 04/28/23 01:40 87 L 04/28/23 01:30 88 L 04/28/23 01:20 91 04/28/23 01:10 89 L 04/28/23 01:00 92 04/28/23 01:00 (1) Sepsis Acute respiratory failure type: with hypoxia Sepsis acute organ dysfunction status: with acute organ dysfunction Sepsis type: sepsis due to unspecified organism Severe sepsis acute organ dysfunction type: acute respiratory failure Severe sepsis shock status: without septic shock Qualified Code(s): A41.9 - Sepsis, unspecified organism; R65.20 - Severe sepsis without septic shock; J96.01 - Acute respiratory failure with hypoxia
--- NOTE | 2023-04-28 13:14 | XRay Report ---
XR KUB/Abdomen 1 view CLINICAL HISTORY: sbo TECHNIQUE: 1 view of the abdomen was obtained. Comparison: Comparison is made to abdomen radiograph 03/31/[address] abdomen pelvis 04/25/2023 FINDINGS: Lung bases are unremarkable. The osseous structures are grossly unremarkable. Multiple gas dilated lo ops of small bowel are seen. No significant stool burden is seen. IMPRESSION: Multiple gas dilated loops of small bowel compatible with ongoing small bowel obstruction. No signifi cant colonic contents. ACT 112: Negative or not required by law. Electronically signed by: Cristino Karimi M.D. 04/28/2023 1:12 PM
--- NOTE | 2023-04-28 13:31 | Surgery Progress Note ---
Date of Service April 28, 2023 Assessment & Plan (1) SBO (small bowel obstruction): Plan: Significantly improved, passing flatus. Will remove NG tube, start sips and chips May advance to clears this evening if tolerating sips Encourage out of bed ambulation Continuing to follow Admission and Anticipated Discharge Date Admission Date: April 25, 2023 Subjective Patient seen and examined at bedside. Patient reports passing flatus and having bowel movement. Feeling much better. Physical Exam Physical Exam: AFVSS NAD, A&O x 3 Abdomen: Soft, mild distention, nontender NG tube in place Results & Data Vital Signs (Past 12 Hours) Vital Signs Temp Pulse Pulse Pulse Resp BP BP 04/28/23 12:29 36.6 C 116 H 20 114/72 04/28/23 07:49 36.4 C L 108 H 18 103/66 04/28/23 06:50 36.6 C 108 H 22 122/70 04/28/23 02:53 37 C 04/28/23 02:40 105 H 25 H 04/28/23 02:30 109 H 20 04/28/23 02:20 117 H 27 H 04/28/23 02:10 113 H 26 H 04/28/23 02:00 109 H 25 H 04/28/23 02:00 132/88 04/28/23 01:50 111 H 28 H 04/28/23 01:40 122 H 47 H 04/28/23 01:30 113 H 25 H Pulse Ox O2 Del Method O2 Flow Rate 04/28/23 12:29 91 Nasal Cannula 2.0 04/28/23 07:49 91 Room Air 04/28/23 06:50 93 5 04/28/23 02:53 04/28/23 02:40 98 04/28/23 02:30 96 04/28/23 02:20 97 04/28/23 02:10 84 L 04/28/23 02:00 91 04/28/23 02:00 04/28/23 01:50 90 04/28/23 01:40 87 L 04/28/23 01:30 88 L Laboratory Results 04/28/23 04/28/23 04/28/23 Range/Units 09:10 06:38 03:40 WBC 10.21 (4.8-10.8) K/ul RBC 3.11 L (4.20-5.40) M/uL Hgb 6.9 L* (12.0-16.0) g/dl Hct 23.1 L (37.0-47.0) % MCV 74.3 L (80.0-100.0) fL MCH 22.2 L (25.0-34.0) pg MCHC 29.9 L (32.0-36.0) g/dL RDW Std Deviation 50.5 H (36.4-46.3) fL RDW Coeff of Luis 19.7 H (11.5-14.5) % Plt Count 192 (130-400) K/uL MPV 10.8 (9.4-12.4) fL Immature Gran % (Auto) 0.4 % Neut % (Auto) 93.0 % Lymph % (Auto) 2.4 % [place] % (Auto) 3.9 % Eos % (Auto) 0.1 % Baso % (Auto) 0.2 % Neut # (Auto) 9.49 H (1.40-6.50) K/uL Lymph # (Auto) 0.25 L (1.20-3.40) K/uL [place] # (Auto) 0.40 (0.11-0.59) K/uL Eos # (Auto) 0.01 (0.00-0.50) K/uL Baso # (Auto) 0.02 (0.00-0.20) K/uL Immature Gran # (Auto) 0.04 (0.01-0.20) K/uL Absolute Nucleated RBC 0.02 (0.00-0.12) K/uL Nucleated RBC % (auto) 0.2 % Dohle Bodies 1+ Tear Drop Cells 1+ Ovalocytes 1+ Echinocytes 1+ APTT 46 H (21-31) Seconds PTT Ratio 1.6 Heparin Anti-Xa, Unfract 0.13 L (0.3-0.7) IU/ml Sodium 136 (136-145) mmol/L Potassium 3.2 L (3.5-5.1) mmol/L Chloride 106 (98-107) mmol/L Carbon Dioxide 22 (21-32) mmol/L Anion Gap 8 (3-11) BUN 9 (6-23) mg/dl Creatinine 0.43 L (0.6-1.2) mg/dl Est Cr Clr Drug Dosing 113.6 ml/min Est GFR ( Amer) 135.5 ml/min Est GFR (Non-Af Amer) 116.9 ml/min BUN/Creatinine Ratio 20.9 H (10-20) Glucose 108 H (70-99(Fasting)) mg/dl POC Glucose (70-99) mg/dl Calcium 7.9 L (8.6-10.3) mg/dl Phosphorus 2.1 L D (2.5-4.9) mg/dl Magnesium 1.9 (1.7-2.4) mg/dl Stl C. cayetanensis PCR Not Detected (NotDetected) Stool Rotavirus A PCR Not Detected (NotDetected) Stl Adenov F 40/41 PCR Not Detected (NotDetected) Stool Astrovirus (PCR) Not Detected (NotDetected) Stool Campylobacter PCR Not Detected (NotDetected) Stl C. diff Tox B Gene Negative Cdiff Gene (Neg) Stool Cryptosporidium PCR Not Detected (NotDetected) Stl E.coli Shiga Tox PCR Not Detected (NotDetected) Stl Enterotoxigenic E PCR Not Detected (NotDetected) Stool EPEC (PCR) Not Detected (NotDetected) Stool EAEC (PCR) Not Detected (NotDetected) Stl E. histolytica PCR Not Detected (NotDetected) Stool Giardia Lamblia PCR Not Detected (NotDetected) Stool Salmonella PCR Not Detected (NotDetected) Stool Sapovirus (PCR) Not Detected (NotDetected) Stl P. shigelloides PCR Not Detected (NotDetected) Stl Shigella/EIEC PCR Not Detected (NotDetected) St Y.enterocolitica PCR Not Detected (NotDetected) Stool Vibrio (PCR) Not Detected (NotDetected) Stl Vibrio cholerae PCR Not Detected (NotDetected) Stl Norovirus GI/GII PCR Not Detected (NotDetected) Blood Type Antibody Screen Crossmatch 04/27/23 04/27/23 04/27/23 Range/Units 19:56 18:25 17:33 WBC (4.8-10.8) K/ul RBC (4.20-5.40) M/uL Hgb 7.5 L (12.0-16.0) g/dl Hct 25.0 L (37.0-47.0) % MCV (80.0-100.0) fL MCH (25.0-34.0) pg MCHC (32.0-36.0) g/dL RDW Std Deviation (36.4-46.3) fL RDW Coeff of Luis (11.5-14.5) % Plt Count (130-400) K/uL MPV (9.4-12.4) fL Immature Gran % (Auto) % Neut % (Auto) % Lymph % (Auto) % [place] % (Auto) % Eos % (Auto) % Baso % (Auto) % Neut # (Auto) (1.40-6.50) K/uL Lymph # (Auto) (1.20-3.40) K/uL [place] # (Auto) (0.11-0.59) K/uL Eos # (Auto) (0.00-0.50) K/uL Baso # (Auto) (0.00-0.20) K/uL Immature Gran # (Auto) (0.01-0.20) K/uL Absolute Nucleated RBC (0.00-0.12) K/uL Nucleated RBC % (auto) % Dohle Bodies Tear Drop Cells Ovalocytes Echinocytes APTT (21-31) Seconds PTT Ratio Heparin Anti-Xa, Unfract 0.14 L (0.3-0.7) IU/ml Sodium (136-145) mmol/L Potassium (3.5-5.1) mmol/L Chloride (98-107) mmol/L Carbon Dioxide (21-32) mmol/L Anion Gap (3-11) BUN (6-23) mg/dl Creatinine (0.6-1.2) mg/dl Est Cr Clr Drug Dosing ml/min Est GFR ( Amer) ml/min Est GFR (Non-Af Amer) ml/min BUN/Creatinine Ratio (10-20) Glucose (70-99(Fasting)) mg/dl POC Glucose 111 H (70-99) mg/dl Calcium (8.6-10.3) mg/dl Phosphorus (2.5-4.9) mg/dl Magnesium (1.7-2.4) mg/dl Stl C. cayetanensis PCR (NotDetected) Stool Rotavirus A PCR (NotDetected) Stl Adenov F 40/41 PCR (NotDetected) Stool Astrovirus (PCR) (NotDetected) Stool Campylobacter PCR (NotDetected) Stl C. diff Tox B Gene (Neg) Stool Cryptosporidium PCR (NotDetected) Stl E.coli Shiga Tox PCR (NotDetected) Stl Enterotoxigenic E PCR (NotDetected) Stool EPEC (PCR) (NotDetected) Stool EAEC (PCR) (NotDetected) Stl E. histolytica PCR (NotDetected) Stool Giardia Lamblia PCR (NotDetected) Stool Salmonella PCR (NotDetected) Stool Sapovirus (PCR) (NotDetected) Stl P. shigelloides PCR (NotDetected) Stl Shigella/EIEC PCR (NotDetected) St Y.enterocolitica PCR (NotDetected) Stool Vibrio (PCR) (NotDetected) Stl Vibrio cholerae PCR (NotDetected) Stl Norovirus GI/GII PCR (NotDetected) Blood Type Antibody Screen Crossmatch 04/27/23 Range/Units 07:16 WBC (4.8-10.8) K/ul RBC (4.20-5.40) M/uL Hgb (12.0-16.0) g/dl Hct (37.0-47.0) % MCV (80.0-100.0) fL MCH (25.0-34.0) pg MCHC (32.0-36.0) g/dL RDW Std Deviation (36.4-46.3) fL RDW Coeff of Luis (11.5-14.5) % Plt Count (130-400) K/uL MPV (9.4-12.4) fL Immature Gran % (Auto) % Neut % (Auto) % Lymph % (Auto) % [place] % (Auto) % Eos % (Auto) % Baso % (Auto) % Neut # (Auto) (1.40-6.50) K/uL Lymph # (Auto) (1.20-3.40) K/uL [place] # (Auto) (0.11-0.59) K/uL Eos # (Auto) (0.00-0.50) K/uL Baso # (Auto) (0.00-0.20) K/uL Immature Gran # (Auto) (0.01-0.20) K/uL Absolute Nucleated RBC (0.00-0.12) K/uL Nucleated RBC % (auto) % Dohle Bodies Tear Drop Cells Ovalocytes Echinocytes APTT (21-31) Seconds PTT Ratio Heparin Anti-Xa, Unfract (0.3-0.7) IU/ml Sodium (136-145) mmol/L Potassium (3.5-5.1) mmol/L Chloride (98-107) mmol/L Carbon Dioxide (21-32) mmol/L Anion Gap (3-11) BUN (6-23) mg/dl Creatinine (0.6-1.2) mg/dl Est Cr Clr Drug Dosing ml/min Est GFR ( Amer) ml/min Est GFR (Non-Af Amer) ml/min BUN/Creatinine Ratio (10-20) Glucose (70-99(Fasting)) mg/dl POC Glucose (70-99) mg/dl Calcium (8.6-10.3) mg/dl Phosphorus (2.5-4.9) mg/dl Magnesium (1.7-2.4) mg/dl Stl C. cayetanensis PCR (NotDetected) Stool Rotavirus A PCR (NotDetected) Stl Adenov F 40/41 PCR (NotDetected) Stool Astrovirus (PCR) (NotDetected) Stool Campylobacter PCR (NotDetected) Stl C. diff Tox B Gene (Neg) Stool Cryptosporidium PCR (NotDetected) Stl E.coli Shiga Tox PCR (NotDetected) Stl Enterotoxigenic E PCR (NotDetected) Stool EPEC (PCR) (NotDetected) Stool EAEC (PCR) (NotDetected) Stl E. histolytica PCR (NotDetected) Stool Giardia Lamblia PCR (NotDetected) Stool Salmonella PCR (NotDetected) Stool Sapovirus (PCR) (NotDetected) Stl P. shigelloides PCR (NotDetected) Stl Shigella/EIEC PCR (NotDetected) St Y.enterocolitica PCR (NotDetected) Stool Vibrio (PCR) (NotDetected) Stl Vibrio cholerae PCR (NotDetected) Stl Norovirus GI/GII PCR (NotDetected) Blood Type O Positive Antibody Screen NEGATIVE Crossmatch See Detail
[2023-04-28] MEDS ORDERED: CASPOFUNGIN 50 MG in SODIUM CHLORIDE 0.9% 250 ML IV SCH (15:00)
[2023-04-28] MEDS: LINEZOLID 600 MG/300 ML BAG IV SCH (16:00)
[2023-04-28] MEDS: SODIUM CHLORIDE 0.9% IV SCH (17:00)
[2023-04-28] MEDS: VORICONAZOLE IV SCH (17:00)
[2023-04-28] MEDS: CASPOFUNGIN 50 MG in SODIUM CHLORIDE 0.9% 250 ML IV SCH (20:38)
[2023-04-28] MEDS ORDERED: Nursing to Pharmacy Communication SCH (23:00)
[2023-04-28] MEDS: OLANZAPINE 2.5 MG TAB PO SCH (23:32)
[2023-04-29 07:46] LABS: Hematocrit (blood only) 26.5 % (37.0-47.0); Hemoglobin 8.2 g/dl (12.0-16.0); Mean Corpuscular Hemoglobin 23.6 pg (25.0-34.0); Mean Corpuscular Hgb Conc 30.9 g/dL (32.0-36.0); Mean Corpuscular Volume 76.4 fL (80.0-100.0); Platelet Count 229 K/uL (130-400); RDW Coefficient of Variation 19.3 % (11.5-14.5); RDW Standard Deviation 51.7 fL (36.4-46.3); Red Blood Count 3.47 M/uL (4.20-5.40); White Blood Count 10.97 K/ul (4.8-10.8)
[2023-04-29 08:04] LABS: Albumin Globulin Ratio 1.2 (0.9-2); Albumin Level 2.6 gm/dl (3.4-5.0); BUN Creatinine Ratio 13.9 (10-20); Bilirubin,Total 0.4 mg/dl (0.2-1.0); Calcium 8.3 mg/dl (8.6-10.3); Creatinine Clr Calc Pharmacy 178.3 ml/min; Est GFR (African American) 143.7 ml/min; Globulin 2.2 gm/dl (2.5-4.0); Total Protein 4.8 gm/dl (6.0-8.3)
[2023-04-29 08:10] LABS: Basophils # (auto) 0.01 K/uL (0.00-0.20); Basophils % (auto) 0.1 %; Echinocytes 1+; Eosinophils # (auto) 0.01 K/uL (0.00-0.50); Eosinophils % (auto) 0.1 %; Immature Granulocytes # (auto) 0.05 K/uL (0.01-0.20); Immature Granulocytes % (auto) 0.5 %; Lymphocytes # (auto) 0.44 K/uL (1.20-3.40); Monocytes # (auto) 0.28 K/uL (0.11-0.59); Monocytes % (auto) 2.6 %; Neutrophils # (auto) 10.18 K/uL (1.40-6.50); Neutrophils % (auto) 92.7 %; Ovalocytes 1+; Polychromasia 1+; Tear Drop Cells 1+
[2023-04-29] MEDS: BENZONATATE 100 MG CAPSULE PO PRN (10:24)
[2023-04-29] MEDS: POTASSIUM CHLORIDE / WTR 10 MEQ/100 ML PLCT IV SCH (10:25)
[2023-04-29] MEDS: DULoxetine HCL 60 MG CAP PO SCH (11:32)
[2023-04-29] MEDS: GABAPENTIN 100 MG CAP PO SCH (11:32)
--- NOTE | 2023-04-29 13:46 | Surgery Progress Note ---
Date of Service April 29, 2023 Assessment & Plan (1) SBO (small bowel obstruction): Plan: Significantly improved, passing flatus. Advance diet to full liquid Will be n.p.o. after midnight tonight for a bronchoscopic procedure Encourage out of bed ambulation Continuing to follow Admission and Anticipated Discharge Date Admission Date: April 25, 2023 Subjective Doing well today. Tolerating clears. Passing flatus. No nausea or vomiting. Physical Exam Physical Exam: AFVSS NAD, A&O x 3 Abdomen: Soft, mild distention, nontender Results & Data Vital Signs (Past 12 Hours) Vital Signs Temp Pulse Pulse Resp BP Pulse Ox O2 Del Method 04/29/23 11:41 36.8 C 112 H 18 119/72 96 Nasal Cannula 04/29/23 07:32 36.4 C L 106 H 22 121/74 95 Nasal Cannula 04/29/23 04:00 36.5 C 93 H 16 100/66 94 Nasal Cannula O2 Flow Rate 04/29/23 11:41 4 04/29/23 07:32 4.0 04/29/23 04:00 2 Laboratory Results 04/29/23 04/27/23 Range/Units 07:14 07:16 WBC 10.97 H (4.8-10.8) K/ul RBC 3.47 L (4.20-5.40) M/uL Hgb 8.2 L (12.0-16.0) g/dl Hct 26.5 L (37.0-47.0) % MCV 76.4 L (80.0-100.0) fL MCH 23.6 L (25.0-34.0) pg MCHC 30.9 L (32.0-36.0) g/dL RDW Std Deviation 51.7 H (36.4-46.3) fL RDW Coeff of Luis 19.3 H (11.5-14.5) % Plt Count 229 (130-400) K/uL MPV 11.0 (9.4-12.4) fL Immature Gran % (Auto) 0.5 % Neut % (Auto) 92.7 % Lymph % (Auto) 4.0 % [place] % (Auto) 2.6 % Eos % (Auto) 0.1 % Baso % (Auto) 0.1 % Neut # (Auto) 10.18 H (1.40-6.50) K/uL Lymph # (Auto) 0.44 L (1.20-3.40) K/uL [place] # (Auto) 0.28 (0.11-0.59) K/uL Eos # (Auto) 0.01 (0.00-0.50) K/uL Baso # (Auto) 0.01 (0.00-0.20) K/uL Immature Gran # (Auto) 0.05 (0.01-0.20) K/uL Polychromasia 1+ Tear Drop Cells 1+ Ovalocytes 1+ Echinocytes 1+ Sodium 138 (136-145) mmol/L Potassium 3.0 L (3.5-5.1) mmol/L Chloride 108 H (98-107) mmol/L Carbon Dioxide 23 (21-32) mmol/L Anion Gap 7 (3-11) BUN 5 L (6-23) mg/dl Creatinine 0.36 L (0.6-1.2) mg/dl Est Cr Clr Drug Dosing 178.3 ml/min Est GFR ( Amer) 143.7 ml/min Est GFR (Non-Af Amer) 124.0 ml/min BUN/Creatinine Ratio 13.9 (10-20) Glucose 114 H (70-99(Fasting)) mg/dl Calcium 8.3 L (8.6-10.3) mg/dl Total Bilirubin 0.4 (0.2-1.0) mg/dl AST 6 L (13-39) U/L ALT 7 (7-52) U/L Alkaline Phosphatase 95 (34-104) U/L Total Protein 4.8 L (6.0-8.3) gm/dl Albumin 2.6 L (3.4-5.0) gm/dl Globulin 2.2 L (2.5-4.0) gm/dl Albumin/Globulin Ratio 1.2 (0.9-2) Blood Type O Positive Antibody Screen NEGATIVE Crossmatch See Detail
--- NOTE | 2023-04-29 13:57 | Hospitalist Progress Note ---
Date of Service April 29, 2023 Assessment & Plan (1) Sepsis: (2) Bacteremia due to Gram-positive bacteria: (3) Immunocompromised patient: Plan Ms. Whitfield is a 52 year old female with PMH stage IV cervical cancer with metastasis to lungs, pelvis & vertebrae, chronic thrombosis right femoral vein, BLE thrombectomy and stenting on chronic Lovenox and Pletal, right ureteral stricture, history of adjustment disorder with anxiety, pelvic radiation 2016 (mets to lungs/bone, last treatment: gemcitabine 04/17/23, receives [id number] at clinic in [place], [place]), prior pneumonitis while on Keytruda (last given 07/2022), and chronic prednisone 40 mg daily since 02/16/23 not on PJP ppx, presented with abdominal pain and found to have small bowel obstruction on CT imaging with transition point in RLQ. Patient initially admitted on 04/25 for management of SBO; however, course com plicated by hypoxia, tachycardia, and tenuous hemodynamics. Patient transferred to ICU for close hemodynamic monitoring. Blood culture on admission showed group A beta strep; sensitive to penicillin. Likely source was thought left lower leg cellulitis. Labs revealed GPC bacteremia and physical exam 04/26 concerning for possible zoster infection of left groin as well as acute on chronic LLE swelling and erythema. Initially patient started on stress dose hydrocortisone, IV Vanc/Zosyn/Acyclovir. ID consulted and blood cultures notable for GAS bacteremia at that time. Source thought to be the newly erythematous LLE which appear suspicious for cellulitis. The underlying concern with GAS is SSTI with a necrotizing soft tissue infection as well given GAS. ECHO was with out apparent vegetations, and per ID note less likely endocarditis pathogen, therefore will trend blood cultures for clearance. Course further complicated by the acute hypoxemic respiratory failure, as well as increased patchy consolidations and cavitations of bilateral lower lungs. Patient has metastatic lung disease as well as prior pembrolizumab pneumonitis, Current infectious work up ordered thus far: [ ] PJP PCR pending [ ] Beta D Glucan pending [ ] Aspergillus pending [ ] Histo pending [ ] AFB sputum pending [ ] Fungal Sputum pending [ ] Bacterial Sputum pending 04/26/2023 Blood Culture 4/4 GAS 04/27/2023 Blood Culture NGTD #Sepsis, POA 2/2 GAS bacteremia POA, Left lower leg cellulitis #Immunocompromised Blood Cultures 04/25 07/04 + GAS UA noninfectious appearance Source likely left leg cellulitis MRSA negative ECHO without vegetations/mass Infectious Disease on consult, reviewed following recommendations -GAS less likely pathogen for endocarditis, ECHO completed w/o visible vegetations -Repeat blood culture negative so far -Vancomycin transitioned to Linezolid for antitoxin effect iso GAS -Continue Zosyn for GAS bacteremia and HAP coverage iso resp failure -Monitor clinical improvement, consider antifungal coverage Hydrocortisone changed over to prednisone. Follow-up on infectious disease recommendation. #Acute hypoxic respiratory failure, multifactorial CT chest from 04/27 shows extensive bilateral mixed interstitial and alveolar opacities with irregular consolidative, centrally cavitary foci. Worsened compared to previous CT. Possible differentials include PJP pneumonia, pneumonitis from Keytruda, multifocal pneumonia. On full dose bactrim per ID, will deescalate to ppx dose contingent upon return of PJP PCR Patient also on Capsofungin and voriconazole for possible fungal pneumonia. Aspergillus antigen and histo urine antigen pending. Wean oxygen as tolerated. Await cultures result for PJP, Aspergillus and histo antigen. Possible bronchoscopy tomorrow AM. N.p.o. for midnight #Acute on chronic small bowel obstructions Recent admission managed conservatively, follows OP Gen Surgery on 04/16 regarding symptoms and encouaged to hydrate, trial of bentyl CT ABD on admission shows a small bowel obstruction with transition point in RLQ Patient reported + flatus, bowel movement on April 28. Diet advanced to full liquid today. #Acute anemia, likely 2/2 ongoing sepsis, dilutional component #Anemia of chronic disease Status post 2 units of packed RBC. No signs or symptoms of bleeding. Continue CBC daily. Transfuse if hemoglobin is less than 7 #Hypercoagulability 2/2 metastatic disease #Chronic R fem thrombosis, BLE thrombectomy #Acute on Chronic Left lower extremity Lymphedema #Chronic Anticoagulation Doppler with chronic nonocclusive thrombus RLE extent "improved from prior" per read, correction from prior note NO left LE dvt Will change heparin to Lovenox as anti-Xa heparin level is persistently low. Patient is at 100 mg Lovenox twice daily. She reports that it was started when her weight was higher. Discussed with patient and regarding Lovenox 50 mg twice a day based on her weight presently. She is agreeable with that. Continue cilostazol 50mg BID, monitor platelets on CBC Follow-up on anti-Xa level 4 hours after Lovenox dose(3rd dose) to ensure it is within therapeutic range. Dose might be needed to be changed depending on anti- Xa level. #Primary cervical cancer with metastatic disease Know mets to lungs, pelvis, vertebra CT scan with cavitary lesions, increased since imaging obtained 03/28 Last treatment: 04/17~, received gemcitabine q2 weeks in [place] clinic -Continue fentanyl patch, duloxetine 60mg, Gabapentin 200mg BID #Sinus Tachycardia #Prolonged QTc Reports baseline HR in low 100s, ranging 120-150s on admission Likely multifactorial, hypoxia/sepsis Continue telemetry and hemodynamic monitoring in ICU QTc improved 04/27, 446 from 500 #Hypokalemia #Hypomagnesemia -Repleted #KARIN *, resolved -Cr up to 1.3, now downtrending with IVF -Continues to be on IV fluids for now #Severe protein calorie malnutrition -BMI 17.81, iso chronic illness/metastatic disease 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, 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 Patient and open to rediscuss CODE STATUS depending on patient's clinical status. For the time beingshe is okay with a trial of CPR and intubation if it is for short-term only. Dispositionpatient hospitalized with multiple issues outlined above. PT OT ordered. Time spent evaluating patient, direct bedside care, chart review, placing orders, interpretation of diagnostic studies, discussion with consultants, patient, and family members, as well as other required patient management activi ties is 50 minutes Please note the above document was generated using voice recognition software. It may contain grammatical, syntax or spelling errors. Any formal questions or concerns about the content, text or information contained within the body of this dictation should be directly addressed to the provider for clarification Admission and Anticipated Discharge Date Admission Date: April 25, 2023 Subjective Patient seen and examined at bedside. She is comfortable lying in the bed; not in distress. She reports mild dry cough. Oxygen requirement of 4 L via nasal cannula. Having bowel movements and passing gas. Review of Systems Review of Systems: All systems reviewed & are unremarkable except as noted in Subjective Physical Exam Physical Exam: GENERAL: AAO x 3; not in any distress. CHEST : Bilateral vesicular breath sound. HEART : Tachycardic, no obvious murmurs ABDOMEN: Slight distention. Nontender. No erythema noted. EXTREMITIES : Left leg swelling present from thigh to leg. Blanching redness present. NEUROLOGIC : Coherent, no facial asymmetry, no other gross focality Results & Data Results & Data Vital Signs (Past 12 Hours) Vital Signs Temp Pulse Pulse Resp BP Pulse Ox O2 Del Method 04/29/23 11:41 36.8 C 112 H 18 119/72 96 Nasal Cannula 04/29/23 07:32 36.4 C L 106 H 22 121/74 95 Nasal Cannula 04/29/23 04:00 36.5 C 93 H 16 100/66 94 Nasal Cannula O2 Flow Rate 04/29/23 11:41 4 04/29/23 07:32 4.0 04/29/23 04:00 2 (1) Sepsis Sepsis type: sepsis due to unspecified organism Sepsis acute organ dysfunction status: with acute organ dysfunction Severe sepsis acute organ dysfunction type: acute respiratory failure Acute respiratory failure type: with hypoxia Severe sepsis shock status: without septic shock Qualified Code(s): A41.9 - Sepsis, unspecified organism; R65.20 - Severe sepsis without septic shock; J96.01 - Acute respiratory failure with hypoxia
[2023-04-29 14:48] LABS: ANTI-Xa, LMWH(Low Molecular Wt 0.47 IU/ML (< 0.10)
[2023-04-29] MEDS: HYDROmorphone INJ 0.5 MG/0.5 ML SYR ONE (15:06)
--- NOTE | 2023-04-29 15:26 | Pulmonology Progress Note ---
Date of Service April 29, 2023 Assessment & Plan (1) Immunocompromised patient: (2) Bacteremia due to Gram-positive bacteria: (3) Sepsis: Sepsis type: sepsis due to unspecified organism Sepsis acute organ dysfunction status: with acute organ dysfunction Severe sepsis acute organ dysfunction type: acute respiratory failure Acute respiratory failure type: with hypoxia Severe sepsis shock status: without septic shock Qualified Code(s): A41.9 - Sepsis, unspecified organism; R65.20 - Severe sepsis without septic shock; J96.01 - Acute respiratory failure with hypoxia (4) Tachycardia: (5) Metastatic disease: Area of secondary neoplastic involvement: unspecified site Qualified Code(s): C79.9 - Secondary malignant neoplasm of unspecified site (6) Abnormal chest CT: (7) Rash: Plan Reason: 52-year-old male present to the hospital with complaints of nausea vomiting abdominal pain and generalized lethargy Past medical history: Cervical cancer diagnosed 2014 s/p radical hysterectomy and radiation with relapse and metastasis in 2018, on chemo, thrombosis of the right femoral vein on Lovenox, on 40 mg of prednisone for pneumonitis Differential for bilateral cavitary lesions is broad including septic emboli from group A beta strep, metastatic cervical cancer, pneumonitis from Keytruda and opportunistic infections. ID recommending bronchoscopy to rule out opportunistic infection. Will defer to my colleagues will be taking over tomorrow regarding the possibility of performing a bronchoscopy. Please keep the patient n.p.o. after midnight and hold anticoagulation. Admission and Anticipated Discharge Date Admission Date: April 25, 2023 Subjective Patient seen and examined. Relatively unchanged symptoms compared to yesterday. Denies dyspnea at rest, but severe dyspnea with exertion. Requiring 4 L of oxygen. Dry cough. Review of Systems Review of Systems: All systems reviewed & are unremarkable except as noted in HPI & below Physical Exam Physical Exam: Constitutional: No acute distress, frail-appearing HEENT: EOMI, PERRLA Respiratory system: Good air entry bilaterally, no wheeze, no rhonchi, positive crackles bilaterally anteriorly and posteriorly CVS: S1-S2 positive, no murmurs or gallops, tachycardia Abdomen: Soft, nontender, nondistended, positive bowel sounds x4 Extremities: +2 pulses bilaterally radialis/ dorsalis pedis, no cyanosis, +3 left lower extremity edema, mild rubor, mild calor, mild rubor left lower extremity which is new as per the patient Neuro: Awake alert oriented x3 Psych: Normal mood and affect Skin: no rashes, warm and dry Lymphatic: no cervical or axillary lymphadenopathy Results & Data Results & Data Vital Signs (Past 12 Hours) Vital Signs Temp Pulse Pulse Resp BP Pulse Ox O2 Del Method 04/29/23 11:41 36.8 C 112 H 18 119/72 96 Nasal Cannula 04/29/23 07:32 36.4 C L 106 H 22 121/74 95 Nasal Cannula 04/29/23 04:00 36.5 C 93 H 16 100/66 94 Nasal Cannula O2 Flow Rate 04/29/23 11:41 4 04/29/23 07:32 4.0 04/29/23 04:00 2 PG Care Time/CCT Total # of Minutes Spent Total Time Spent with Patient: Total time spent is greater than 50% in coordination of care (as documented) at patient's floor/unit and/or counseling patient: Coding Level of Care Code 29978 SUB INP/OBS CARE 2/35MIN Diagnoses Immunocompromised patient D84.9 Bacteremia due to Gram-positive bacteria R78.81 Sepsis with acute hypoxic respiratory failure without septic shock, due to unspecified organism A41.9; R65.20; J96.01 Sepsis type: sepsis due to unspecified organism Sepsis acute organ dysfunction status: with acute organ dysfunction Severe sepsis acute organ dysfunction type: acute respiratory failure Acute respiratory failure type: with hypoxia Severe sepsis shock status: without septic shock Tachycardia R00.0 Metastatic disease C79.9 Area of secondary neoplastic involvement: unspecified site Abnormal chest CT R93.89 Rash R21
[2023-04-29 15:37] LABS: Quantiferon Mitogen-NIL 0.57 IU/mL; Quantiferon NIL 0.04 IU/mL; Quantiferon TB Gold Plus NEGATIVE (NEGATIVE)
[2023-04-29] MEDS: predniSONE 20 MG TAB PO SCH (18:34)
[2023-04-29] MEDS ORDERED: ENOXAPARIN 80 MG/0.8 ML SYR SQ SCH (21:00)
[2023-04-30 07:03] LABS: Hematocrit (blood only) 29.6 % (37.0-47.0); Hemoglobin 9.1 g/dl (12.0-16.0); Mean Corpuscular Hemoglobin 23.3 pg (25.0-34.0); Mean Corpuscular Hgb Conc 30.7 g/dL (32.0-36.0); Mean Corpuscular Volume 75.9 fL (80.0-100.0); Mean Platelet Volume 10.3 fL (9.4-12.4); Platelet Count 249 K/uL (130-400); RDW Standard Deviation 53.2 fL (36.4-46.3); White Blood Count 6.32 K/ul (4.8-10.8)
[2023-04-30 07:24] LABS: Albumin Globulin Ratio 1.2 (0.9-2); Albumin Level 2.8 gm/dl (3.4-5.0); BUN Creatinine Ratio 11.8 (10-20); Bilirubin,Total 0.3 mg/dl (0.2-1.0); Calcium 8.6 mg/dl (8.6-10.3); Creatinine Clr Calc Pharmacy 187.8 ml/min; Est GFR (African American) 146.4 ml/min; Est GFR (Non-African American) 126.3 ml/min; Globulin 2.4 gm/dl (2.5-4.0); Potassium 3.4 mmol/L (3.5-5.1); Total Protein 5.2 gm/dl (6.0-8.3)
--- NOTE | 2023-04-30 07:40 | Pulmonology Progress Note ---
Date of Service April 30, 2023 Assessment & Plan (1) Immunocompromised patient: (2) Bacteremia due to Gram-positive bacteria: (3) Sepsis: Sepsis type: sepsis due to unspecified organism Sepsis acute organ dysfunction status: with acute organ dysfunction Severe sepsis acute organ dysfunction type: acute respiratory failure Acute respiratory failure type: with hypoxia Severe sepsis shock status: without septic shock Qualified Code(s): A41.9 - Sepsis, unspecified organism; R65.20 - Severe sepsis without septic shock; J96.01 - Acute respiratory failure with hypoxia (4) Tachycardia: (5) Metastatic disease: Area of secondary neoplastic involvement: unspecified site Qualified Code(s): C79.9 - Secondary malignant neoplasm of unspecified site (6) Abnormal chest CT: (7) Rash: Plan Impression: 52-year-old female with stage IV cervical cancer (mets to lung and bone) she has a chronic thrombosis of the right femoral vein. She was brought to the emergency room with abdominal pain and found to have a partial small bowel obstruction. She was seen by surgery and managed conservatively. CT of the chest was performed which demonstrated multifocal airspace opacities. She had been on prednisone chronically for presumptive ICI pulmonary toxicity. Her chemotherapy is managed by [facility] and [facility]. Unclear what radiation therapy the patient received. Recommendations: 1. Abnormal CT scan: The patient demonstrates multiple cavitary lesions with surrounding groundglass opacity. There appears to be adenopathy present as well. These findings were identified on the CT scan from about a month ago and may have shown some mild interval progression. Differential would include metastatic disease, radiation pneumonitis (unclear the dose of radiation or the timing that the patient received radiation therapy), chemotherapeutic pulmonary toxicity, or opportunistic infections. The patient is currently being managed by ID and being treated with Bactrim, Zosyn, Zyvox, voriconazole, and caspofungin. BAL has been requested to guide antimicrobial therapy. Risks and benefits were discussed with the patient. She is agreeable to proceed. Will plan on performing BAL today. Patient was advised that if she is already been on broad-spectrum antibiotics as well as systemic steroids for several days, the sensitivity of bronchoscopy at this point in time may be compromised. 2. Potential opportunistic infection: Defer antibiotics to infectious disease. 3. Hypoxemia: Continue to wean oxygen as tolerated. Above recommendations and plan were extensively discussed with the patient. Questions were answered to the best my ability. She expressed understanding and is in agreement with plan as outlined. Total of 55 minutes was spent in evaluation management and coordination of care for this patient Admission and Anticipated Discharge Date Admission Date: April 25, 2023 Subjective Patient seen and examined. EMR reviewed. 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 The patient states she is doing well clinically. She continues to have a dry nonproductive cough. No chest pain or palpitations. No fevers chills night sweats overnight. She denies any chest pain. She has chronic left lower extremity lymphedema which is slightly worse than her baseline. She has been made n.p.o. for possible bronchoscopy today. Review of Systems Review of Systems: All systems reviewed & are unremarkable except as noted in Subjective Physical Exam Constitutional: WD/WN, vitals as above Neck: trachea midline, no thyromegaly Respiratory: no respiratory distress, no labored breathing, no cough and not tachypneic Auscultation: + crackles and + rhonchi; no wheezes Cardiovascular: Rate/Rhythm: regular rhythm and + tachycardic Heart Sounds: normal S1 and normal S2; no murmur Extremities: + edema Left greater than right lower extremity Gastrointestinal (Abdomen): normal bowel sounds, soft, nontender, no hepatosplenomegaly Musculoskeletal: Extremities: extremities normal to inspection Skin: no rashes, warm and dry Neurologic: Nonfocal exam Lymphatic: no cervical lymphadenopathy Results & Data Results & Data Vital Signs (Past 12 Hours) Vital Signs Temp Pulse Pulse Resp BP Pulse Ox O2 Del Method 04/30/23 07:19 36.4 C L 102 H 20 114/69 95 Nasal Cannula 04/30/23 03:21 36.3 C L 92 H 21 109/73 93 Nasal Cannula 04/29/23 23:32 36.3 C L 95 H 20 148/89 H 94 Nasal Cannula 04/29/23 20:00 Nasal Cannula O2 Flow Rate 04/30/23 07:19 4 04/30/23 03:21 4 04/29/23 23:32 4 04/29/23 20:00 2 Critical Care Results & Data Vital Signs (Past 12 Hours) Vital Signs Temp Pulse Pulse Resp BP Pulse Ox O2 Del Method 04/30/23 07:19 36.4 C L 102 H 20 114/69 95 Nasal Cannula 04/30/23 03:21 36.3 C L 92 H 21 109/73 93 Nasal Cannula 04/29/23 23:32 36.3 C L 95 H 20 148/89 H 94 Nasal Cannula 04/29/23 20:00 Nasal Cannula O2 Flow Rate 04/30/23 07:19 4 04/30/23 03:21 4 04/29/23 23:32 4 04/29/23 20:00 2 Lab & Micro Results (Past 24 Hours) RBC 3.90 M/uL (4.20-5.40) L 04/30/23 WBC 6.32 K/ul (4.8-10.8) 04/30/23 Hgb 9.1 g/dl (12.0-16.0) L 04/30/23 Hct 29.6 % (37.0-47.0) L 04/30/23 MCV 75.9 fL (80.0-100.0) L 04/30/23 MCH 23.3 pg (25.0-34.0) L 04/30/23 MCHC 30.7 g/dL (32.0-36.0) L 04/30/23 RDW Standard Deviation 53.2 fL (36.4-46.3) H 04/30/23 RDW Coefficient of Variation 20.0 % (11.5-14.5) H 04/30/23 Plt Count 249 K/uL (130-400) 04/30/23 MPV 10.3 fL (9.4-12.4) 04/30/23 Na 136 mmol/L (136-145) 04/30/23 K 3.4 mmol/L (3.5-5.1) L 04/30/23 Cl 105 mmol/L (98-107) 04/30/23 CO2 23 mmol/L (21-32) 04/30/23 Anion Gap 8 (3-11) 04/30/23 BUN 4 mg/dl (6-23) L 04/30/23 Creatinine 0.34 mg/dl (0.6-1.2) L 04/30/23 Estimated GFR ( Amer) 146.4 ml/min 04/30/23 Estimated GFR (Non-Af Amer) 126.3 ml/min 04/30/23 BUN/Creatinine Ratio 11.8 (10-20) 04/30/23 Glu 117 mg/dl (70-99(Fasting)) H 04/30/23 Ca 8.6 mg/dl (8.6-10.3) 04/30/23 Total Bilirubin 0.3 mg/dl (0.2-1.0) 04/30/23 AST 6 U/L (13-39) L 04/30/23 ALT 6 U/L (7-52) L 04/30/23 Alkaline Phosphatase 106 U/L (34-104) H 04/30/23 TP 5.2 gm/dl (6.0-8.3) L 04/30/23 Albumin 2.8 gm/dl (3.4-5.0) L 04/30/23 Globulin 2.4 gm/dl (2.5-4.0) L 04/30/23 Albumin/Globulin Ratio 1.2 (0.9-2) 04/30/23 Calcium Level 8.6 mg/dl (8.6-10.3) 04/30/23 06:32 Microbiology 04/26/23 15:40 Acid Fast Bacilli Smear - Final Sputum, Expectorated I & O Totals 24 Hours 04/29/23 04/30/23 05/01/23 06:59 06:59 06:59 Intake Total 4524.6580 / 4524.6580 3154.0625 / 3154.0625 Output Total 1551 / 1551 1400 / 1400 Balance 2973.6580 / 2973.6580 1754.0625 / 1754.0625 Cumulative 04/25/23 17:01 thru 04/30/23 06:08 Intake Total 27404.1500 Output Total 4376 Balance 83425.1500 RT Ventilator Mngmt (Last Documented) Ventilator Ordered Settings Respiratory Rate 20 04/30/23 07:19 Ventilator - PT Measurements Respiratory Rate 20 PG Care Time/CCT Total # of Minutes Spent Total Time Spent with Patient: Total time spent is greater than 50% in coordination of care (as documented) at patient's floor/unit and/or counseling patient: Coding Level of Care Code 74361 SUB INP/OBS CARE 3/50MIN Diagnoses Immunocompromised patient D84.9 Bacteremia due to Gram-positive bacteria R78.81 Sepsis with acute hypoxic respiratory failure without septic shock, due to unspecified organism A41.9; R65.20; J96.01 Sepsis type: sepsis due to unspecified organism Sepsis acute organ dysfunction status: with acute organ dysfunction Severe sepsis acute organ dysfunction type: acute respiratory failure Acute respiratory failure type: with hypoxia Severe sepsis shock status: without septic shock Tachycardia R00.0 Metastatic disease C79.9 Area of secondary neoplastic involvement: unspecified site Abnormal chest CT R93.89 Rash R21
[2023-04-30 07:59] LABS: Anisocytosis Present; Echinocytes 1+; Immature Granulocytes # (auto) 0.06 K/uL (0.01-0.20); Immature Granulocytes % (auto) 0.9 %; Lymphocytes # (auto) 0.25 K/uL (1.20-3.40); Monocytes # (auto) 0.12 K/uL (0.11-0.59); Monocytes % (auto) 1.9 %; Neutrophils # (auto) 5.89 K/uL (1.40-6.50); Neutrophils % (auto) 93.2 %; Ovalocytes 1+
[2023-04-30] MEDS: fentaNYL citrate PF 100 MCG/2 ML VIAL ONE (09:01)
[2023-04-30] MEDS: MIDAZOLAM HCL 5 MG/ML 1 ML VIAL ONE (09:01)
[2023-04-30] MEDS: MIDAZOLAM HCL 1 MG/ML 2ML VIAL ONE (09:02)
--- NOTE | 2023-04-30 09:45 | Infectious Disease Progress Nt ---
Date of Service April 30, 2023 Assessment & Plan (1) Bacterial infection due to streptococcus, group A: (2) Sepsis: (3) Metastatic disease: (4) SBO (small bowel obstruction): (5) Chronic deep vein thrombosis (DVT): (6) Abdominal pain: (7) Primary cervical cancer with metastasis to other site: (8) Immunocompromised patient: (9) Abnormal chest CT: (10) Cavitary pneumonia: (11) Acute hypoxemic respiratory failure: (12) Cellulitis of left leg: (13) Rash of groin: Plan Anel Whitfield is a 52-year-old woman with metastatic cervical cancer s/p radical hysterectomy and appendectomy 2013, pelvic radiation 2016 (mets to lungs/bone, last treatment: gemcitabine 04/17/23, receives [id number] at clinic in [place], [place]), prior pneumonitis while on Keytruda (last given 07/2022) and has been on chronic prednisone 40 mg daily since 02/16/23, recent admissions 01/2023 and 03/2023 for SBOs, DVT, who presents to [facility] on 04/25/23 after developing abd pain, n/v, found to have possible SBO, acute hypoxemic respiratory failure, LLE erythema c/f SSTI, also with new L inguinal/truncal erythematous rash, and 04/25 Group A Strep bacteremia. Pts GAS may be from SSTI, also with spreading L truncal rash which could be c/f SSTI vs. NSTI, vs. other non-infectious process (?hemorrhage). 04/26 CT chest with extensive bilateral cavitations of unclear etiology; have started IV Bactrim for possible PJP. With GAS bacteremia in 4/4 bottles. Source may be LLE, which was newly erythematous and swollen on 04/25 and resembling cellulitis/SSTI. Also with new truncal/inguinal rash on 04/26. This was initially c/f Shingles given possibly dermatomal location however is now spreading past midline. The rash continues to spread, now throughout her lower abd and flank/back area. This spread could be c/f NSTI and would have low threshold for involvement of surgery. Also consider whether the petechial nature of the rash may reflect underlying hemorrhage (?Gilliam-Turners sign). GAS is a less likely pathogen for endocarditis but would nevertheless favor evaluating for deep-seated infection. Would repeat BCx to confirm clearance. 04/26 TTE without mass or vegetation. PT with port in place and also with known chronic nonocclusive RLE thrombus. With acute hypoxemic respiratory failure and CT A/P showing patchy consolidations with cavitations in lower lung, CXR with extensive patchy cavitary consolidations. Patient with a history of pneumonitis from Keytruda and with known lung mets. She is not on home O2 but is now hypoxemic. She has been on prednisone 40 mg daily since 01/2023, without PJP ppx. Would be highly concerned about PJP although difficult to discern which of her lung findings are new (prior to starting steroids, her 02/16 CT also with multiple irregular nodules, GGOs, central cavitation). Would be concerned for infectious component of her imaging findings. Especially with her chronic prednisone use, now with wide ddx including PJP, endemic fungi, Aspergillus, and other fungal pna. Will send PJP PCR in sputum, BDG, and also Aspergillus Ag and Histo UrAg. 04/26 serum LDH normal at 169. Will also send for bacterial SpCx, fungal SpCx, and AFB sputum (to evaluate for NTM/MAC). Can continue pip-tazo which will cover GAS bacteremia as well as possible bacterial HAP. Will change vancomycin to linezolid for anti-toxin effect given spreading truncal/inguinal rash, though will monitor blood counts carefully, and note that pt also on other serotonergic meds. With leukopenia (~2 weeks after gemcitabine). If this is persistent/worsening would consider G-CSF. Reasonable to continue acyclovir for now, though pts abd/inguinal rash thus far without vesicles and Shingles less likely at this time. Given the pts persistent respiratory failure, and 04/26 CT chest with worsening extensive bilateral cavitations and GGOs, will start treatment-dose IV Bactrim for PJP, as well as voriconazole + caspofungin for possible pulmonary Aspergillus/mold infection, especially while PJP/fungal studies are pending. (Note that posaconazole and isavuconazole are not on formulary at [facility]; if further clinical worsening or concern for Histo or Mucor, would require escalation to Ambisome). ID Problem List: 1.Group A Strep bacteremia 2.Immunosuppression due to chronic steroid use and chemotherapy for cervical cancer 3.Possible LLE SSTI 4.L-sided truncal/inguinal rash, possible SSTI/NSTI, possible Shingles 5.Chronic steroid use, not on PJP prophylaxis 6.Acute hypoxemic respiratory failure, [id number] pulmonary GGOs and cavitary lung lesions, cavitary pneumonia 7.History of pneumonitis from Keytruda 8.Leukopenia Recommendations: - Given stable BP and improved LE cellulitis - would dc linezolid, was on for antitoxin effect in setting of known GAS infection - Continue pip-tazo 4.5 g IV q8h to cover pneumonia and strep - C/W IV Bactrim 235 mg IV q8h for PJP while awaiting additional testing. Pt already on steroids. - C/W voriconazole and caspofungin (70 mg IV today, followed by 50 mg IV daily) combination therapy for possible Aspergillus/fungal infection, while awaiting studies for fungal pna. - Rash resolved - Closely monitor spreading truncal rash with low threshold for engagement of surgery for NSTI, consideration of abdominal hemorrhage -F/u Bronch results and testing - F/u: sputum bacterial cx / fungal cx / AFB cx (eval for NTM/MAC), PJP PCR in sputum, Legionella UrAg, BDG, Aspergillus Ag, Histo UrAg, Crypto Ag - F/u repeat BCx ordered for 04/26 NGTD -Monitor Cr and LFTs Lorrie Monte MD Infectious Diseases [facility] Connect ID Connect direct line: [phone] Admission and Anticipated Discharge Date Admission Date: April 25, 2023 Subjective Subsequent visit was provided via telemedicine using two-way real-time interactive telecommunication between the patient and the telemedicine provider. For the duration of the visit, the provider was performing the assessment from a different facility than the patient. This includesuse of bluetooth stethoscope forauscultationperformed by the telepresenter that the telemedicine provider can hear if described in the physical exam. Director Payer contact information: Please call [facility] Call Center . (Phone Number For Physician Use Only) After establishing a telemedicine visit, patient was: Patient was verified with two unique identifiers, Patient/authorized rep acknowledged consent and understanding and Gave permission to continue telehealth session Time Spent with Patient: Subsequent => 35 min Patient without complaints, post bronch on 4L NC Physical Exam Physical Exam: NAD 4L Oxygen, post bronch coughing LLE swelling erythema Rash on abdomen resolved Results & Data Vital Signs (Past 12 Hours) Vital Signs Temp Pulse Pulse Pulse Resp BP Pulse Ox 04/30/23 09:30 109 H 22 104/63 94 04/30/23 09:15 113 H 22 120/65 94 04/30/23 09:00 116 H 14 108/71 91 04/30/23 08:49 114 H 93 04/30/23 08:46 111 H 91 04/30/23 08:30 104 H 14 125/76 95 04/30/23 07:19 36.4 C L 102 H 20 114/69 95 04/30/23 03:21 36.3 C L 92 H 21 109/73 93 04/29/23 23:32 36.3 C L 95 H 20 148/89 H 94 04/29/23 22:36 100 H O2 Del Method O2 Flow Rate 04/30/23 09:30 Oxymask 4 04/30/23 09:15 Oxymask 5 04/30/23 09:00 Oxymask 8 04/30/23 08:49 Oxymask 15 04/30/23 08:46 Oxymask 15 04/30/23 08:30 Nasal Cannula 04/30/23 07:19 Nasal Cannula 4 04/30/23 03:21 Nasal Cannula 4 04/29/23 23:32 Nasal Cannula 4 04/29/23 22:36 Medications Administered Current Inpatient Medications Artificial Tears (Artificial Tears) 1 drops OP QID PRN PRN Reason: Dryness Stop: 05/26/23 12:26 Benzonatate (Benzonatate 100 Mg Capsule) 100 mg PO TID PRN PRN Reason: Cough Stop: 05/29/23 09:27 Last Admin: 04/30/23 09:50 Dose: 100 mg Cilostazol (Cilostazol 100 Mg Tab) 50 mg PO BID SAE Stop: 05/26/23 08:59 Last Admin: 04/30/23 09:52 Dose: 50 mg Duloxetine HCl (Duloxetine Hcl 60 Mg Cap) 60 mg PO QAM SAE Stop: 05/26/23 08:59 Last Admin: 04/30/23 09:51 Dose: 60 mg Fentanyl (Fentanyl 12 Mcg/Hr Tdsy) 12 mcg TD Q72H SAE Stop: 05/09/23 22:14 Last Admin: 04/28/23 23:32 Dose: 12 mcg Gabapentin (Gabapentin 100 Mg Cap) 200 mg PO BID [facility] Stop: 05/26/23 08:59 Last Admin: 04/29/23 20:43 Dose: 200 mg Guaifenesin/Dextromethorphan (Guaifenesin/Dextrom Syrup 200mg/20mg 10ml Udc) 10 ml PO Q8 SAE Stop: 05/26/23 15:59 Last Admin: 04/30/23 06:14 Dose: 10 ml Hydromorphone HCl (Hydromorphone Inj 0.5 Mg/0.5 Ml Syr) 0.5 mg IV Q2HWA PRN PRN Reason: Pain Stop: 05/10/23 15:31 Last Admin: 04/29/23 22:16 Dose: 0.5 mg Promethazine HCl 6.25 mg/ (Sodium Chloride) 50.25 mls @ 201 mls/hr IV Q6H PRN PRN Reason: Nausea And Vomiting Stop: 05/25/23 21:39 Last Infusion: 04/26/23 01:35 Dose: Infused Lorazepam 0.25 mg/ Syringe 0.25 mls @ 2 mls/min IV Q4H PRN PRN Reason: Anxiety/Agitation Stop: 05/26/23 01:22 Last Admin: 04/29/23 22:27 Dose: 2 mls/min Piperacillin Sod/Tazobactam (Sod 4.5 gm/ Dextrose) 100 mls @ 25 mls/hr IV Q8H [facility]; Protocol Stop: 05/10/23 14:29 Last Admin: 04/30/23 06:14 Dose: 25 mls/hr Pantoprazole Sodium 40 mg/ (Syringe) 10 mls @ 5 mls/min IV DAILY@1100 [facility] Stop: 05/26/23 10:59 Last Admin: 04/29/23 13:54 Dose: 5 mls/min Trimethoprim/Sulfamethoxazole (235 mg/ Dextrose) 264.6875 mls @ 176.458 mls/hr IV Q8H [facility] Stop: 05/04/23 11:59 Last Admin: 04/30/23 07:26 Dose: 176.4 mls/hr Voriconazole 188 mg/ Sodium (Chloride) 100 mls @ 50 mls/hr IV Q12H [facility] Stop: 05/05/23 14:59 Last Infusion: 04/30/23 06:08 Dose: Infused Caspofungin 50 mg/ Sodium (Chloride) 260 mls @ 250 mls/hr IV Q24H [facility]; Protocol Stop: 05/05/23 18:29 Last Infusion: 04/30/23 01:14 Dose: Infused Linezolid (Zyvox) 600 mg in 300 mls @ 300 mls/hr IV Q12H [facility] Stop: 05/12/23 13:59 Last Infusion: 04/30/23 02:36 Dose: Infused Lidocaine (Lidocaine 5% 1 Patch) 1 patch TD HS [facility] Stop: 05/25/23 23:29 Last Admin: 04/29/23 20:42 Dose: 1 patch Melatonin (Melatonin 3 Mg Tab) 3 mg PO [facility] Stop: 05/26/23 20:59 Miscellaneous (Check Fentanyl Patch Placement) 1 each N/A QS [facility] Stop: 05/26/23 00:00 Last Admin: 04/30/23 10:33 Dose: 1 each Miscellaneous (Fentanyl Patch Remove & Waste) 1 each N/A Q3D [facility] Stop: 05/25/23 22:14 Last Admin: 04/28/23 23:35 Dose: 1 each Miscellaneous (Order Awaiting Action [Varenicline [Tyrvaya] 0.03 Mg/[place], Metered, Non-Aeroso]) 1 each N/A QS [facility] Stop: 05/26/23 00:00 Last Admin: 04/26/23 09:23 Dose: Not Given Miscellaneous (Remove Lidoderm Patch) 1 each N/A DAILY@2100 [facility] Stop: 05/26/23 20:59 Last Admin: 04/29/23 20:44 Dose: 1 each Olanzapine (Olanzapine 2.5 Mg Tab) 2.5 mg PO [facility] Stop: 05/26/23 20:59 Last Admin: 04/29/23 20:42 Dose: 2.5 mg Ondansetron HCl (Ondansetron Inj 2 Mg/Ml 2 Ml Vial) 4 mg IV Q6H PRN PRN Reason: Nausea Stop: 05/26/23 13:23 Last Admin: 04/27/23 14:54 Dose: 4 mg Prednisone (Prednisone 20 Mg Tab) 40 mg PO DAILY [facility] Stop: 05/29/23 14:14 Last Admin: 04/29/23 18:34 Dose: 40 mg Tramadol HCl (Tramadol Hcl 50 Mg Tablet) 25 mg PO Q4H PRN PRN Reason: Pain Stop: 05/26/23 00:46 (2) Sepsis Acute respiratory failure type: with hypoxia Sepsis acute organ dysfunction status: with acute organ dysfunction Sepsis type: sepsis due to unspecified organism Severe sepsis acute organ dysfunction type: acute respiratory failure Severe sepsis shock status: without septic shock Qualified Code(s): A41.9 - Sepsis, unspecified organism; R65.20 - Severe sepsis without septic shock; J96.01 - Acute respiratory failure with hypoxia (3) Metastatic disease Area of secondary neoplastic involvement: unspecified site Qualified Code(s): C79.9 - Secondary malignant neoplasm of unspecified site
--- NOTE | 2023-04-30 10:05 | Procedure Note ---
Procedure Note: Bronchoscopy Procedure Procedure: Fiberoptic bronchoscopy Bronchoalveolar lavage Conscious sedation Provider: Gian Valdez MD Indication: Abnormal CT scan and patient with malignancy undergoing chemotherapy Consent: Signed by patient and timeout verified prior to procedure. Sedation start: 846 Sedation end: 849 Conscious sedation: 4 mg Versed, 100 mcg fentanyl, topical lidocaine per RT protocol Procedure: Patient was brought to the bronchoscopy suite. Consent was verified. Appropriate radiographic studies had been reviewed prior to the procedure. Standard monitoring was applied. Oxygen was administered. After topical anesthesia of the airways per respiratory therapy protocol, the fiberoptic scope was advanced through the right nare. Oropharynx was unremarkable. Vocal cords were visualized and were normal in function and appeared. Topical anesthesia of the cords was achieved with instillation of lidocaine through the scope. Scope was then passed through the vocal cords. The trachea was midline. Main maximino was slightly splayed. Anesthesia of the lower airways was achieved with instillation of lidocaine through the scope. A sequential and systematic examination of the lower airways was conducted. The right-sided airways were patent with normal anatomy and the mucosa appeared mild ly erythematous. Left-sided airways were patent with normal and out of and the mucosa appeared mildly erythematous. No endobronchial lesions were identified. Minimal secretions were identified within the tracheobronchial tree. After the inspection bronchoscopy was completed, the scope was wedged into the left upper lobe. A BAL was performed with instillation of 2 aliquots of 60 cc saline. Return was about 60 cc. The return did become slightly more bloody with serial aliquots. The bronchoscope was then removed from the airways. The patient tolerated the procedure well without obvious complication. Patient was returned to the recovery room. Impression: 1. Normal inspection bronchoscopy with the exception of some mildly erythematous airway mucosa. 2. BAL left upper lobe sent for cytology and microbiologic studies. Return was slightly bloody and may be consistent with alveolar hemorrhage in the appropriate clinical context. [facility] Procedure Codes (Charges) Pulmonary/Thoracic Procedure 1: Pulmonary and Thoracic: 19277 Dx bronchoscopy/BAL
[2023-04-30 10:28] LABS: Magnesium 1.3 mg/dl (1.7-2.4); Phosphorus 2.7 mg/dl (2.5-4.9)
[2023-04-30 10:39] LABS: Eosinophil Body Fluid Man 3 %; Fluid Mono/Macrophage 36 %; Lymphocyte Body Fluid Man 21 %; Neutrophil Body Fluid Man 40 %
--- NOTE | 2023-04-30 11:12 | Surgery Progress Note ---
Date of Service April 30, 2023 Assessment & Plan (1) SBO (small bowel obstruction): Plan: Pt feeling well from belly standpoint underwent bronchoscopy this AM with pulmonology Okay to resume full liquids s/p procedure when okay with pulm, if that goes okay may trial low fiber for dinner we will check on pt again tomorrow Admission and Anticipated Discharge Date Admission Date: April 25, 2023 Subjective Patient feeling well from abdominal standpoint. Denies abd pain/n/v. Reports + gas and BM. Took pain meds last night but for her lower extremity issues. Physical Exam Physical Exam: awake/alert, sitting up at the side of the bed Gastrointestinal (Abdomen): Inspection/Auscultation: + abdomen distended (mild) Percussion/Palpation: abdomen soft; abdomen nontender Results & Data Vital Signs (Past 12 Hours) Vital Signs Temp Pulse Pulse Pulse Resp BP Pulse Ox 04/30/23 09:30 109 H 22 104/63 94 04/30/23 09:15 113 H 22 120/65 94 04/30/23 09:00 116 H 14 108/71 91 04/30/23 08:49 114 H 93 04/30/23 08:46 111 H 91 04/30/23 08:45 04/30/23 08:30 104 H 14 125/76 95 04/30/23 07:19 36.4 C L 102 H 20 114/69 95 04/30/23 03:21 36.3 C L 92 H 21 109/73 93 04/29/23 23:32 36.3 C L 95 H 20 148/89 H 94 O2 Del Method O2 Flow Rate 04/30/23 09:30 Oxymask 4 04/30/23 09:15 Oxymask 5 04/30/23 09:00 Oxymask 8 04/30/23 08:49 Oxymask 15 04/30/23 08:46 Oxymask 15 04/30/23 08:45 Oxymask 04/30/23 08:30 Nasal Cannula 04/30/23 07:19 Nasal Cannula 4 04/30/23 03:21 Nasal Cannula 4 04/29/23 23:32 Nasal Cannula 4 PG Care Time/CCT Total # of Minutes Spent Total Time Spent with Patient: Total time spent is greater than 50% in coordination of care (as documented) at patient's floor/unit and/or counseling patient: Coding Level of Care Code 15250 SUB INP/OBS CARE Diagnoses SBO (small bowel obstruction) K56.609
--- NOTE | 2023-04-30 15:06 | Hospitalist Progress Note ---
Date of Service April 30, 2023 Assessment & Plan (1) Sepsis: (2) Bacteremia due to Gram-positive bacteria: (3) Immunocompromised patient: Plan Ms. Whitfield is a 52 year old female with PMH stage IV cervical cancer with metastasis to lungs, pelvis & vertebrae, chronic thrombosis right femoral vein, BLE thrombectomy and stenting on chronic Lovenox and Pletal, right ureteral stricture, history of adjustment disorder with anxiety, pelvic radiation 2016 (mets to lungs/bone, last treatment: gemcitabine 04/17/23, receives [id number] at clinic in [place], [place]), prior pneumonitis while on Keytruda (last given 07/2022), and chronic prednisone 40 mg daily since 02/16/23 not on PJP ppx, presented with abdominal pain and found to have small bowel obstruction on CT imaging with transition point in RLQ. Acute on chronic small bowel obstructions CT ABD on admission shows a small bowel obstruction with transition point in RLQ Patient initially admitted on 04/25 for management of SBO; however, course complicated by hypoxia, tachycardia, and tenuous hemodynamics. Patient transferred to ICU for close hemodynamic monitoring. Blood culture on admission showed group A beta strep; sensitive to penicillin. Likely source was thought left lower leg cellulitis. Recent admission managed conservatively, follows OP Gen Surgery on 04/16 regarding symptoms and encouraged to hydrate, trial of Bentyl No more symptoms or signs of SBO She has been tolerating diet and has being having regular bowel movement Sepsis, POA 2/2 GAS bacteremia POA, Left lower leg cellulitis Immunocompromised Blood Cultures 04/25 4/4 + GAS UA noninfectious appearance Source likely left leg cellulitis MRSA negative ECHO without vegetations/mass Infectious Disease on consult, reviewed following recommendations -GAS less likely pathogen for endocarditis, ECHO completed w/o visible vegetations -Repeat blood culture negative so far -Vancomycin transitioned to Linezolid for antitoxin effect iso GAS -Continue Zosyn for GAS bacteremia and HAP coverage iso resp failure -Monitor clinical improvement, consider antifungal coverage -Zyvox has been discontinued with continuation of antifungals as mentioned below Hydrocortisone changed over to prednisone. Follow-up on infectious disease recommendation. Course further complicated by the acute hypoxemic respiratory failure, as well as increased patchy consolidations and cavitations of bilateral lower lungs. Patient has metastatic lung disease as well as prior pembrolizumab pneumonitis, Current infectious work up ordered thus far: [ ] PJP PCR pending [ ] Beta D Glucan pending [ ] Aspergillus pending [ ] Histo pending [ ] AFB sputum pending [ ] Fungal Sputum pending [ ] Bacterial Sputum pending 04/26/2023 Blood Culture 07/04 GAS 04/27/2023 Blood Culture NGTD Acute hypoxic respiratory failure, multifactorial CT chest from 04/27 shows extensive bilateral mixed interstitial and alveolar opacities with irregular consolidative, centrally cavitary foci. Worsened compared to previous CT. Possible differentials include PJP pneumonia, pneumonitis from Keytruda, multifocal pneumonia. On full dose bactrim per ID, will deescalate to ppx dose contingent upon return of PJP PCR Patient also on Capsofungin and voriconazole for possible fungal pneumonia. Aspergillus antigen and histo urine antigen pending. Status post bronchoscopy and bronchoalveolar lavage-relevant tests have been pending Will continue current antibiotics and antifungal Acute anemia, likely 2/2 ongoing sepsis, dilutional component Anemia of chronic disease Status post 2 units of packed RBC. No signs or symptoms of bleeding. Hemoglobin stable at 9.1 as of 04/30/2023 Hypercoagulability 2/2 metastatic disease Chronic R fem thrombosis, BLE thrombectomy Acute on Chronic Left lower extremity Lymphedema Chronic Anticoagulation Doppler with chronic nonocclusive thrombus RLE extent "improved from prior" per read, correction from prior note NO left LE dvt Will change heparin to Lovenox as anti-Xa heparin level is persistently low. Patient is at 100 mg Lovenox twice daily. She reports that it was started when her weight was higher. Discussed with patient and regarding Lovenox 50 mg twice a day based on her weight presently. She is agreeable with that. Continue cilostazol 50mg BID, monitor platelets on CBC Follow-up on anti-Xa level 4 hours after Lovenox dose(3rd dose) to ensure it is within therapeutic range. Dose might be needed to be changed depending on anti-Xa level. Primary cervical cancer with metastatic disease Know mets to lungs, pelvis, vertebra CT scan with cavitary lesions, increased since imaging obtained 03/28 Last treatment: 04/17~, received gemcitabine q2 weeks in [place], [place] clinic Continue fentanyl patch, duloxetine 60mg, Gabapentin 200mg BID Sinus Tachycardia Prolonged QTc Reports baseline HR in low 100s, ranging 120-150s on admission Likely multifactorial, hypoxia/sepsis Continue telemetry and hemodynamic monitoring in ICU QTc improved 04/27, 446 from 500 Likely secondary to use of bronchodilator Complicated by ongoing infection without any fever and or chills Will advised to drink more fluid Hypokalemia Hypomagnesemia -Repleted KARIN *, resolved -Cr up to 1.3, now downtrending with IVF -Continues to be on IV fluids for now Severe protein calorie malnutrition -BMI 17.81, iso chronic illness/metastatic disease 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, observation assistant when able to take po Diet: Full liquid diet Analgesia: home pain regimen, CTM Sedation: Not required at this time DVT: Lovenox Ulcer PPX IV PPI Deescalate abx per ID recommendations PT/OT when tolerated DVT prophylaxis Lovenox CODE STATUSfull code. Patient and open to rediscuss CODE STATUS depending on patient's clinical status. For the time beingshe is okay with a trial of CPR and intubation if it is for short-term only. Dispositionpatient hospitalized with multiple issues outlined above. PT OT ordered. Time spent evaluating patient, direct bedside care, chart review, placing orders, interpretation of diagnostic studies, discussion with consultants, patient, and family members, as well as other required patient management activities is 50 minutes Please note the above document was generated using voice recognition software. It may contain grammatical, syntax or spelling errors. Any formal questions or concerns about the content, text or information contained within the body of this dictation should be directly addressed to the provider for clarification Admission and Anticipated Discharge Date Admission Date: April 25, 2023 Subjective 04/30/2023 The patient was seen and examined in telemetry unit in presence of the family members She has been complaining of shortness of breath without chest tightness and/or wheezing She is status post bronchoscopy and bronchial lavage and complaining more cough Denies any chest pain, palpitation,, abdominal pain, nausea and or vomiting Review of Systems Review of Systems: All systems reviewed and are unremarkable except as noted below Physical Exam Physical Exam: Lying in bed with minimal shortness of breath at rest Constitutional: well developed, well nourished, + ill appearing and average body habitus Eyes: PERRL, conjunctivae normal, anicteric sclerae ENMT: external ear and nose normal, oropharynx normal Neck: trachea midline, no thyromegaly Respiratory: + respiratory distress (Mild to moderate respiratory distress) Auscultation: + diminished lung sounds and + crackles (Minimal crackles bibasally) Cardiovascular: Rate/Rhythm: regular rate, regular rhythm and + tachycardic Heart Sounds: normal S1 and normal S2; no murmur Extremities: + edema (Trace on right side and lymphedema with edema on the left) Gastrointestinal (Abdomen): Inspection/Auscultation: normal bowel sounds; abdomen not distended Percussion/Palpation: abdomen soft; abdomen nontender Musculoskeletal: No acute arthritis involving any of the joint Neurologic: Alert, awake and oriented x 3. Generally weak but no focal sensory or no motor deficit appreciated Lymphatic: no cervical or axillary lymphadenopathy Results & Data Results & Data Vital Signs (Past 12 Hours) Vital Signs Temp Pulse Pulse Pulse Resp BP Pulse Ox 04/30/23 11:45 36.6 C 109 H 22 109/76 92 04/30/23 09:30 109 H 22 104/63 94 04/30/23 09:15 113 H 22 120/65 94 04/30/23 09:00 116 H 14 108/71 91 04/30/23 08:49 114 H 93 04/30/23 08:46 111 H 91 04/30/23 08:45 04/30/23 08:30 104 H 14 125/76 95 04/30/23 07:19 36.4 C L 102 H 20 114/69 95 04/30/23 03:21 36.3 C L 92 H 21 109/73 93 O2 Del Method O2 Flow Rate 04/30/23 11:45 Nasal Cannula 4 04/30/23 09:30 Oxymask 4 04/30/23 09:15 Oxymask 5 04/30/23 09:00 Oxymask 8 04/30/23 08:49 Oxymask 15 04/30/23 08:46 Oxymask 15 04/30/23 08:45 Oxymask 04/30/23 08:30 Nasal Cannula 04/30/23 07:19 Nasal Cannula 4 04/30/23 03:21 Nasal Cannula 4 Laboratory Results Short CBC 04/30/23 Range/Units 06:32 WBC 6.32 (4.8-10.8) K/ul Hgb 9.1 L (12.0-16.0) g/dl Hct 29.6 L (37.0-47.0) % Plt Count 249 (130-400) K/uL BMP 04/30/23 06:32 Sodium 136 Potassium 3.4 L Chloride 105 Carbon Dioxide 23 BUN 4 L Creatinine 0.34 L Glucose 117 H Calcium 8.6 Liver Function 04/30/23 Range/Units 06:32 Total Bilirubin 0.3 (0.2-1.0) mg/dl AST 6 L (13-39) U/L ALT 6 L (7-52) U/L Alkaline Phosphatase 106 H (34-104) U/L Albumin 2.8 L (3.4-5.0) gm/dl Medications Administered Current Inpatient Medications Artificial Tears (Artificial Tears) 1 drops OP QID PRN PRN Reason: Dryness Stop: 05/26/23 12:26 Benzonatate (Benzonatate 100 Mg Capsule) 100 mg PO TID PRN PRN Reason: Cough Stop: 05/29/23 09:27 Last Admin: 04/30/23 09:50 Dose: 100 mg Cilostazol (Cilostazol 100 Mg Tab) 50 mg PO BID SAE Stop: 05/26/23 08:59 Last Admin: 04/30/23 09:52 Dose: 50 mg Duloxetine HCl (Duloxetine Hcl 60 Mg Cap) 60 mg PO QAM SAE Stop: 05/26/23 08:59 Last Admin: 04/30/23 09:51 Dose: 60 mg Fentanyl (Fentanyl 12 Mcg/Hr Tdsy) 12 mcg TD Q72H SAE Stop: 05/09/23 22:14 Last Admin: 04/28/23 23:32 Dose: 12 mcg Gabapentin (Gabapentin 100 Mg Cap) 200 mg PO BID SAE Stop: 05/26/23 08:59 Last Admin: 04/30/23 11:36 Dose: 200 mg Guaifenesin/Dextromethorphan (Guaifenesin/Dextrom Syrup 200mg/20mg 10ml Udc) 10 ml PO Q8 SAE Stop: 05/26/23 15:59 Last Admin: 04/30/23 06:14 Dose: 10 ml Hydromorphone HCl (Hydromorphone Inj 0.5 Mg/0.5 Ml Syr) 0.5 mg IV Q2HWA PRN PRN Reason: Pain Stop: 05/10/23 15:31 Last Admin: 04/29/23 22:16 Dose: 0.5 mg Promethazine HCl 6.25 mg/ (Sodium Chloride) 50.25 mls @ 201 mls/hr IV Q6H PRN PRN Reason: Nausea And Vomiting Stop: 05/25/23 21:39 Last Infusion: 04/26/23 01:35 Dose: Infused Lorazepam 0.25 mg/ Syringe 0.25 mls @ 2 mls/min IV Q4H PRN PRN Reason: Anxiety/Agitation Stop: 05/26/23 01:22 Last Admin: 04/29/23 22:27 Dose: 2 mls/min Piperacillin Sod/Tazobactam (Sod 4.5 gm/ Dextrose) 100 mls @ 25 mls/hr IV Q8H [facility]; Protocol Stop: 05/10/23 14:29 Last Admin: 04/30/23 06:14 Dose: 25 mls/hr Pantoprazole Sodium 40 mg/ (Syringe) 10 mls @ 5 mls/min IV DAILY@1100 [facility] Stop: 05/26/23 10:59 Last Admin: 04/30/23 11:39 Dose: 5 mls/min Trimethoprim/Sulfamethoxazole (235 mg/ Dextrose) 264.6875 mls @ 176.458 mls/hr IV Q8H [facility] Stop: 05/04/23 11:59 Last Admin: 04/30/23 07:26 Dose: 176.4 mls/hr Voriconazole 188 mg/ Sodium (Chloride) 100 mls @ 50 mls/hr IV Q12H [facility] Stop: 05/05/23 14:59 Last Infusion: 04/30/23 06:08 Dose: Infused Caspofungin 50 mg/ Sodium (Chloride) 260 mls @ 250 mls/hr IV Q24H [facility]; Protocol Stop: 05/05/23 18:29 Last Infusion: 04/30/23 01:14 Dose: Infused Linezolid (Zyvox) 600 mg in 300 mls @ 300 mls/hr IV Q12H [facility] Stop: 05/12/23 13:59 Last Admin: 04/30/23 14:48 Dose: 300 mls/hr Lidocaine (Lidocaine 5% 1 Patch) 1 patch TD [facility] Stop: 05/25/23 23:29 Last Admin: 04/29/23 20:42 Dose: 1 patch Melatonin (Melatonin 3 Mg Tab) 3 mg PO [facility] Stop: 05/26/23 20:59 Miscellaneous (Check Fentanyl Patch Placement) 1 each N/A QS [facility] Stop: 05/26/23 00:00 Last Admin: 04/30/23 10:33 Dose: 1 each Miscellaneous (Fentanyl Patch Remove & Waste) 1 each N/A Q3D [facility] Stop: 05/25/23 22:14 Last Admin: 04/28/23 23:35 Dose: 1 each Miscellaneous (Order Awaiting Action [Varenicline [Tyrvaya] 0.03 Mg/[place], Metered, Non-Aeroso]) 1 each N/A QS [facility] Stop: 05/26/23 00:00 Last Admin: 04/26/23 09:23 Dose: Not Given Miscellaneous (Remove Lidoderm Patch) 1 each N/A DAILY@2100 [facility] Stop: 05/26/23 20:59 Last Admin: 04/29/23 20:44 Dose: 1 each Olanzapine (Olanzapine 2.5 Mg Tab) 2.5 mg PO HS SAE Stop: 05/26/23 20:59 Last Admin: 04/29/23 20:42 Dose: 2.5 mg Ondansetron HCl (Ondansetron Inj 2 Mg/Ml 2 Ml Vial) 4 mg IV Q6H PRN PRN Reason: Nausea Stop: 05/26/23 13:23 Last Admin: 04/27/23 14:54 Dose: 4 mg Prednisone (Prednisone 20 Mg Tab) 40 mg PO DAILY [facility] Stop: 05/29/23 14:14 Last Admin: 04/30/23 11:36 Dose: 40 mg Tramadol HCl (Tramadol Hcl 50 Mg Tablet) 25 mg PO Q4H PRN PRN Reason: Pain Stop: 05/26/23 00:46 (1) Sepsis Sepsis type: sepsis due to unspecified organism Sepsis acute organ dysfunction status: with acute organ dysfunction Severe sepsis acute organ dysfunction type: acute respiratory failure Acute respiratory failure type: with hypoxia Severe sepsis shock status: without septic shock Qualified Code(s): A41.9 - Sepsis, unspecified organism; R65.20 - Severe sepsis without septic shock; J96.01 - Acute respiratory failure with hypoxia
[2023-04-30 18:52] LABS: Cryptococcal Antigen Not Detected (Not Detected); Source Serum
[2023-05-01 07:08] LABS: Basophils # (auto) 0.01 K/uL (0.00-0.20); Basophils % (auto) 0.2 %; Eosinophils # (auto) 0.01 K/uL (0.00-0.50); Eosinophils % (auto) 0.2 %; Hematocrit (blood only) 25.5 % (37.0-47.0); Hemoglobin 8.1 g/dl (12.0-16.0); Immature Granulocytes # (auto) 0.08 K/uL (0.01-0.20); Immature Granulocytes % (auto) 1.4 %; Lymphocytes # (auto) 0.65 K/uL (1.20-3.40); Lymphocytes % (auto) 11.2 %; Mean Corpuscular Hemoglobin 23.8 pg (25.0-34.0); Mean Corpuscular Hgb Conc 31.8 g/dL (32.0-36.0); Mean Corpuscular Volume 74.8 fL (80.0-100.0); Mean Platelet Volume 10.2 fL (9.4-12.4); Monocytes # (auto) 0.44 K/uL (0.11-0.59); Monocytes % (auto) 7.6 %; Neutrophils % (auto) 79.4 %; Platelet Count 221 K/uL (130-400); RDW Coefficient of Variation 20.6 % (11.5-14.5); RDW Standard Deviation 54.6 fL (36.4-46.3); Red Blood Count 3.41 M/uL (4.20-5.40); White Blood Count 5.79 K/ul (4.8-10.8)
[2023-05-01 07:18] LABS: Albumin Globulin Ratio 1.3 (0.9-2); Albumin Level 2.7 gm/dl (3.4-5.0); BUN Creatinine Ratio 16.7 (10-20); Bilirubin,Total 0.2 mg/dl (0.2-1.0); Calcium 8.5 mg/dl (8.6-10.3); Creatinine Clr Calc Pharmacy 175.9 ml/min; Est GFR (African American) 143.7 ml/min; Globulin 2.1 gm/dl (2.5-4.0); Magnesium 1.3 mg/dl (1.7-2.4); Phosphorus 2.7 mg/dl (2.5-4.9); Potassium 3.3 mmol/L (3.5-5.1); Total Protein 4.8 gm/dl (6.0-8.3)
[2023-05-01 07:38] LABS: Anisocytosis Present; Ovalocytes 1+; Polychromasia 1+; Tear Drop Cells 1+
--- NOTE | 2023-05-01 08:44 | Surgery Progress Note ---
Date of Service May 01, 2023 Assessment & Plan (1) SBO (small bowel obstruction): Plan: Bronchoscopy yesterday, coughing some, on 02 via NC 4L/min No abdominal pain tolerating regular diet , no n/v Having BMs Patient would like to have a venting G tube, Will reach out to medicine and ID to see appropriate timing and if possible for this admission Will discuss with case management to set up home nursing care to assist with G tube/ placing on suction if needed at home. Patient seen and examined with Dr. Foster as above. d/w hospitalist...will wait on PEG tube b/c of her active pneumonia. will continue to follow along from the periphery. will likely make plans for elective venting gastrostomy in a couple weeks after pneumonia resolved. Admission and Anticipated Discharge Date Admission Date: April 25, 2023 Subjective Bronchoscopy yesterday No abdominal pain tolerating regular diet Review of Systems Constitutional: no fever and no chills Respiratory: + cough and + dyspnea Cardiovascular: no chest pain Gastrointestinal: no abdominal pain, no nausea and no vomiting Neurologic: no confusion and no memory loss Physical Exam Physical Exam: alert oriented pleasant Constitutional: cooperative and comfortable; no acute distress ENMT: external ear and nose normal, oropharynx normal Respiratory: normal respiratory effort and able to speak in complete sentences; no respiratory distress on o2 via NC @ 4L /min Cardiovascular: Rate/Rhythm: + tachycardic (114) Gastrointestinal (Abdomen): Inspection/Auscultation: abdomen not distended Percussion/Palpation: abdomen soft; abdomen nontender Results & Data Vital Signs (Past 12 Hours) Vital Signs Temp Pulse Pulse Resp BP Pulse Ox Pulse Ox 05/01/23 07:44 98.1 F 114 H 20 122/71 92 05/01/23 07:00 111 H 05/01/23 03:15 97.5 F L 105 H 20 105/64 90 05/01/23 02:00 90 04/30/23 22:37 97.7 F 99 H 18 114/72 97 04/30/23 21:57 102 H 04/30/23 21:30 O2 Del Method O2 Del Method O2 Flow Rate O2 Flow Rate 05/01/23 07:44 Nasal Cannula 4 05/01/23 07:00 05/01/23 03:15 Nasal Cannula 4 05/01/23 02:00 Nasal Cannula 4 04/30/23 22:37 Nasal Cannula 4 04/30/23 21:57 04/30/23 21:30 Nasal Cannula 4 PG Care Time/CCT Total # of Minutes Spent Total Time Spent with Patient: Total time spent is greater than 50% in coordination of care (as documented) at patient's floor/unit and/or counseling patient: Coding Level of Care Code 40100 SUB INP/OBS CARE 2/35MIN Diagnoses SBO (small bowel obstruction) K56.609
[2023-05-01] MEDS: MAGNESIUM OXIDE 400 MG TAB PO SCH (09:40)
[2023-05-01] MEDS: POTASSIUM CHLORIDE CRTAB 20 MEQ TABCR PO SCH (09:40)
[2023-05-01] MEDS: FUROSEMIDE 40 MG/4 ML VIAL IV ONE (11:34)
[2023-05-01] MEDS: POTASSIUM CHLORIDE / WTR 10 MEQ/100 ML PLCT IV ONE (11:35)
--- NOTE | 2023-05-01 12:49 | Hospitalist Progress Note ---
Date of Service May 01, 2023 Assessment & Plan (1) Sepsis: (2) Bacteremia due to Gram-positive bacteria: (3) Immunocompromised patient: Plan Ms. Whitfield is a 52 year old female with PMH stage IV cervical cancer with metastasis to lungs, pelvis & vertebrae, chronic thrombosis right femoral vein, BLE thrombectomy and stenting on chronic Lovenox and Pletal, right ureteral stricture, history of adjustment disorder with anxiety, pelvic radiation 2016 (mets to lungs/bone, last treatment: gemcitabine 04/17/23, receives [id number] at clinic in [place], [place]), prior pneumonitis while on Keytruda (last given 07/2022), and chronic prednisone 40 mg daily since 02/16/23 not on PJP ppx, presented with abdominal pain and found to have small bowel obstruction on CT imaging with transition point in RLQ. Acute on chronic small bowel obstructions CT ABD on admission shows a small bowel obstruction with transition point in RLQ Patient initially admitted on 04/25 for management of SBO; however, course complicated by hypoxia, tachycardia, and tenuous hemodynamics. Patient transferred to ICU for close hemodynamic monitoring. Blood culture on admission showed group A beta strep; sensitive to penicillin. Likely source was thought left lower leg cellulitis. Recent admission managed conservatively, follows OP Gen Surgery on 04/16 regarding symptoms and encouraged to hydrate, trial of Bentyl No more symptoms or signs of SBO She has been tolerating diet and has being having regular bowel movement She has been tolerating diet and does not have any symptoms of SBO Appreciate surgery input and recommendation for venting PEG tube placement The patient has been agreeable to it-surgery is going to discuss this with the ID specialist Sepsis, POA 2/2 GAS bacteremia POA, Left lower leg cellulitis Immunocompromised Blood Cultures 04/25 07/04 + GAS UA noninfectious appearance Source likely left leg cellulitis MRSA negative ECHO without vegetations/mass Infectious Disease on consult, reviewed following recommendations -GAS less likely pathogen for endocarditis, ECHO completed w/o visible vegetations -Repeat blood culture negative so far -Vancomycin transitioned to Linezolid for antitoxin effect iso GAS -Continue Zosyn for GAS bacteremia and HAP coverage iso resp failure -Monitor clinical improvement, consider antifungal coverage -Zyvox has been discontinued with continuation of antifungals as mentioned below Hydrocortisone changed over to prednisone. Follow-up on infectious disease recommendation. Course further complicated by the acute hypoxemic respiratory failure, as well as increased patchy consolidations and cavitations of bilateral lower lungs. Patient has metastatic lung disease as well as prior pembrolizumab pneumonitis, Remains afebrile on current regimen of antibiotic antifungal White blood cell count is normal but remains tachycardic Will follow ID recommendation on antibiotic and antifungal Current infectious work up ordered thus far: BAL Cryptococcal antigen not detected TB test QFT negative Sputum Gram stain negative Histoplasma galactomannan antibody pending, Legionella source/culture pending, urine Legionella antibody pending Pneumocystis J PCR-pending Respiratory virus culture rapid-pending 04/26/2023 Blood Culture 07/04 GAS 04/27/2023 Blood Culture NGTD Acute hypoxic respiratory failure, multifactorial CT chest from 04/27 shows extensive bilateral mixed interstitial and alveolar opacities with irregular consolidative, centrally cavitary foci. Worsened compared to previous CT. Possible differentials include PJP pneumonia, pneumonitis from Keytruda, multifocal pneumonia. On full dose bactrim per ID, will deescalate to ppx dose contingent upon return of PJP PCR Patient also on Capsofungin and voriconazole for possible fungal pneumonia. Aspergillus antigen and histo urine antigen pending. Status post bronchoscopy and bronchoalveolar lavage-relevant tests have been pending Will continue current antibiotics and antifungal Remains stable without any further improvement Will try Hycodan for hacking cough Noted to have a positive fluid balance of 20 L Will give 40 of Lasix IV with 10 mg of potassium IV Monitor output Acute anemia, likely 2/2 ongoing sepsis, dilutional component Anemia of chronic disease Status post 2 units of packed RBC. No signs or symptoms of bleeding. Hemoglobin stable at 9.1 as of 04/30/2023 Hypercoagulability 2/2 metastatic disease Chronic R fem thrombosis, BLE thrombectomy Acute on Chronic Left lower extremity Lymphedema Chronic Anticoagulation Doppler with chronic nonocclusive thrombus RLE extent "improved from prior" per read, correction from prior note NO left LE dvt Will change heparin to Lovenox as anti-Xa heparin level is persistently low. Patient is at 100 mg Lovenox twice daily. She reports that it was started when her weight was higher. Discussed with patient and regarding Lovenox 50 mg twice a day based on her weight presently. She is agreeable with that. Continue cilostazol 50mg BID, monitor platelets on CBC Follow-up on anti-Xa level 4 hours after Lovenox dose(3rd dose) to ensure it is within therapeutic range. Dose might be needed to be changed depending on anti-Xa level. Primary cervical cancer with metastatic disease Know mets to lungs, pelvis, vertebra CT scan with cavitary lesions, increased since imaging obtained 03/28 Last treatment: 04/17~, received gemcitabine q2 weeks in [place], [place] clinic Continue fentanyl patch, duloxetine 60mg, Gabapentin 200mg BID Sinus Tachycardia Prolonged QTc Reports baseline HR in low 100s, ranging 120-150s on admission Likely multifactorial, hypoxia/sepsis Continue telemetry and hemodynamic monitoring in ICU QTc improved 04/27, 446 from 500 Likely secondary to use of bronchodilator Complicated by ongoing infection without any fever and or chills Will advised to drink more fluid Hypokalemia Hypomagnesemia -Repleted KARIN *, resolved -Cr up to 1.3, now downtrending with IVF -Continues to be on IV fluids for now Severe protein calorie malnutrition -BMI 17.81, iso chronic illness/metastatic disease 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, electrical 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 Patient and open to rediscuss CODE STATUS depending on patient's clinical status. For the time beingshe is okay with a trial of CPR and intubation if it is for short-term only. Dispositionpatient hospitalized with multiple issues outlined above. PT OT ordered. Please note the above document was generated using voice recognition software. It may contain grammatical, syntax or spelling errors. Any formal questions or concerns about the content, text or information contained within the body of this dictation should be directly addressed to the provider for clarification Admission and Anticipated Discharge Date Admission Date: April 25, 2023 Subjective 04/30/2023 The patient was seen and examined in telemetry unit in presence of the family members She has been complaining of shortness of breath without chest tightness and/or wheezing She is status post bronchoscopy and bronchial lavage and complaining more cough Denies any chest pain, palpitation,, abdominal pain, nausea and or vomiting 05/01/2023 The patient was seen and examined in telemetry unit She has been coughing a lot Shortness of breath remains stable and still being tachycardic at 113/min She denies any fever and or chills Has been tolerating diet and denies any nausea or vomiting today Review of Systems Review of Systems: All systems reviewed and are unremarkable except as noted below Physical Exam Physical Exam: Lying in bed with minimal shortness of breath at rest Constitutional: well developed, well nourished, + ill appearing and average body habitus Eyes: PERRL, conjunctivae normal, anicteric sclerae ENMT: external ear and nose normal, oropharynx normal Neck: trachea midline, no thyromegaly Respiratory: + respiratory distress (Mild to moderate respiratory distress) Auscultation: + diminished lung sounds and + crackles (Minimal crackles bibasally) Cardiovascular: Rate/Rhythm: regular rate, regular rhythm and + tachycardic Heart Sounds: normal S1 and normal S2; no murmur Extremities: + edema (Trace on right side and lymphedema with edema on the left) Gastrointestinal (Abdomen): Inspection/Auscultation: normal bowel sounds; abdomen not distended Percussion/Palpation: abdomen soft; abdomen nontender Musculoskeletal: No acute arthritis involving any of the joint Skin: Left lower extremity is more swollen today with some redness Neurologic: normal touch/pain/proprioception and moves all extremities; no focal motor deficits Lymphatic: no cervical or axillary lymphadenopathy Results & Data Results & Data Vital Signs (Past 12 Hours) Vital Signs Temp Pulse Pulse Resp BP Pulse Ox Pulse Ox 05/01/23 10:42 36.8 C 113 H 18 111/72 95 05/01/23 08:00 05/01/23 07:44 36.7 C 114 H 20 122/71 92 05/01/23 07:00 111 H 05/01/23 03:15 36.4 C L 105 H 20 105/64 90 05/01/23 02:00 90 O2 Del Method O2 Del Method O2 Flow Rate O2 Flow Rate 05/01/23 10:42 Nasal Cannula 4 05/01/23 08:00 Nasal Cannula 4 05/01/23 07:44 Nasal Cannula 4 05/01/23 07:00 05/01/23 03:15 Nasal Cannula 4 05/01/23 02:00 Nasal Cannula 4 Laboratory Results Short CBC 05/01/23 Range/Units 06:16 WBC 5.79 (4.8-10.8) K/ul Hgb 8.1 L (12.0-16.0) g/dl Hct 25.5 L (37.0-47.0) % Plt Count 221 (130-400) K/uL BMP 05/01/23 06:16 Sodium 137 Potassium 3.3 L Chloride 106 Carbon Dioxide 24 BUN 6 Creatinine 0.36 L Glucose 107 H Calcium 8.5 L Liver Function 05/01/23 Range/Units 06:16 Total Bilirubin 0.2 (0.2-1.0) mg/dl AST 5 L (13-39) U/L ALT 5 L (7-52) U/L Alkaline Phosphatase 84 (34-104) U/L Albumin 2.7 L (3.4-5.0) gm/dl Medications Administered Current Inpatient Medications Artificial Tears (Artificial Tears) 1 drops OP QID PRN PRN Reason: Dryness Stop: 05/26/23 12:26 Benzonatate (Benzonatate 100 Mg Capsule) 100 mg PO TID PRN PRN Reason: Cough Stop: 05/29/23 09:27 Last Admin: 05/01/23 09:45 Dose: 100 mg Cilostazol (Cilostazol 100 Mg Tab) 50 mg PO BID SAE Stop: 05/26/23 08:59 Last Admin: 05/01/23 08:09 Dose: 50 mg Duloxetine HCl (Duloxetine Hcl 60 Mg Cap) 60 mg PO QAM SAE Stop: 05/26/23 08:59 Last Admin: 05/01/23 08:09 Dose: 60 mg Fentanyl (Fentanyl 12 Mcg/Hr Tdsy) 12 mcg TD Q72H SAE Stop: 05/09/23 22:14 Last Admin: 04/28/23 23:32 Dose: 12 mcg Gabapentin (Gabapentin 100 Mg Cap) 200 mg PO BID SAE Stop: 05/26/23 08:59 Last Admin: 05/01/23 08:08 Dose: 200 mg Hydrocodone Bit/Homatropine Methylb (Hydrocodone/Homatropine Syrup 5mg/1.5mg 5ml Udp) 5 ml PO Q6H PRN PRN Reason: Cough Stop: 05/15/23 11:00 Hydromorphone HCl (Hydromorphone Inj 0.5 Mg/0.5 Ml Syr) 0.5 mg IV Q2HWA PRN PRN Reason: Pain Stop: 05/10/23 15:31 Last Admin: 04/30/23 19:44 Dose: 0.5 mg Promethazine HCl 6.25 mg/ (Sodium Chloride) 50.25 mls @ 201 mls/hr IV Q6H PRN PRN Reason: Nausea And Vomiting Stop: 05/25/23 21:39 Last Infusion: 04/26/23 01:35 Dose: Infused Lorazepam 0.25 mg/ Syringe 0.25 mls @ 2 mls/min IV Q4H PRN PRN Reason: Anxiety/Agitation Stop: 05/26/23 01:22 Last Admin: 04/30/23 21:15 Dose: 2 mls/min Piperacillin Sod/Tazobactam (Sod 4.5 gm/ Dextrose) 100 mls @ 25 mls/hr IV Q8H [facility]; Protocol Stop: 05/10/23 14:29 Last Infusion: 05/01/23 10:00 Dose: Infused Pantoprazole Sodium 40 mg/ (Syringe) 10 mls @ 5 mls/min IV DAILY@1100 [facility] Stop: 05/26/23 10:59 Last Admin: 05/01/23 11:35 Dose: 5 mls/min Trimethoprim/Sulfamethoxazole (235 mg/ Dextrose) 264.6875 mls @ 176.458 mls/hr IV Q8H [facility] Stop: 05/04/23 11:59 Last Infusion: 05/01/23 08:00 Dose: Infused Voriconazole 188 mg/ Sodium (Chloride) 100 mls @ 50 mls/hr IV Q12H [facility] [place] Stop: 05/05/23 14:59 Last Infusion: 05/01/23 05:17 Dose: Infused Caspofungin 50 mg/ Sodium (Chloride) 260 mls @ 250 mls/hr IV Q24H [facility]; Protocol Stop: 05/05/23 18:29 Last Infusion: 04/30/23 19:50 Dose: Infused Linezolid (Zyvox) 600 mg in 300 mls @ 300 mls/hr IV Q12H [facility] Stop: 05/12/23 13:59 Last Infusion: 05/01/23 02:40 Dose: Infused Lidocaine (Lidocaine 5% 1 Patch) 1 patch TD HS [facility] Stop: 05/25/23 23:29 Last Admin: 04/30/23 21:18 Dose: 1 patch Magnesium Oxide (Magnesium Oxide 400 Mg Tab) 400 mg PO BID [facility] Stop: 05/31/23 08:59 Last Admin: 05/01/23 09:40 Dose: 400 mg Melatonin (Melatonin 3 Mg Tab) 3 mg PO HS [facility] Stop: 05/26/23 20:59 Miscellaneous (Check Fentanyl Patch Placement) 1 each N/A QS [facility] Stop: 05/26/23 00:00 Last Admin: 05/01/23 08:07 Dose: 1 each Miscellaneous (Fentanyl Patch Remove & Waste) 1 each N/A Q3D [facility] Stop: 05/25/23 22:14 Last Admin: 04/28/23 23:35 Dose: 1 each Miscellaneous (Order Awaiting Action [Varenicline [Tyrvaya] 0.03 Mg/[place], Metered, Non-Aeroso]) 1 each N/A QS [facility] Stop: 05/26/23 00:00 Last Admin: 04/26/23 09:23 Dose: Not Given Miscellaneous (Remove Lidoderm Patch) 1 each N/A DAILY@2100 [facility] Stop: 05/26/23 20:59 Last Admin: 04/30/23 21:19 Dose: 1 each Olanzapine (Olanzapine 2.5 Mg Tab) 2.5 mg PO HS [facility] [place] Stop: 05/26/23 20:59 Last Admin: 04/30/23 21:16 Dose: 2.5 mg Ondansetron HCl (Ondansetron Inj 2 Mg/Ml 2 Ml Vial) 4 mg IV Q6H PRN PRN Reason: Nausea Stop: 05/26/23 13:23 Last Admin: 04/27/23 14:54 Dose: 4 mg Potassium Chloride (Potassium Chloride Crtab 20 Meq Tabcr) 20 meq PO BID [facility] Stop: 05/31/23 08:59 Last Admin: 05/01/23 09:40 Dose: 20 meq Prednisone (Prednisone 20 Mg Tab) 40 mg PO DAILY [facility] [place] Stop: 05/29/23 14:14 Last Admin: 05/01/23 08:08 Dose: 40 mg Tramadol HCl (Tramadol Hcl 50 Mg Tablet) 25 mg PO Q4H PRN PRN Reason: Pain Stop: 05/26/23 00:46 (1) Sepsis Sepsis type: sepsis due to unspecified organism Sepsis acute organ dysfunction status: with acute organ dysfunction Severe sepsis acute organ dysfunction type: acute respiratory failure Acute respiratory failure type: with hypoxia Severe sepsis shock status: without septic shock Qualified Code(s): A41.9 - Sepsis, unspecified organism; R65.20 - Severe sepsis without septic shock; J96.01 - Acute respiratory failure with hypoxia
[2023-05-01 14:42] LABS: Aspergillus Ag Index 0.29 (<0.50); Aspergillus Antigen, Serum Not Detected (Not Detected); Fungitell (1-3)-B-D-Glucan 219 pg/mL
--- NOTE | 2023-05-01 15:26 | Pulmonology Progress Note ---
Date of Service May 01, 2023 Assessment & Plan (1) Immunocompromised patient: (2) Bacteremia due to Gram-positive bacteria: (3) Sepsis: Sepsis type: sepsis due to unspecified organism Sepsis acute organ dysfunction status: with acute organ dysfunction Severe sepsis acute organ dysfunction type: acute respiratory failure Acute respiratory failure type: with hypoxia Severe sepsis shock status: without septic shock Qualified Code(s): A41.9 - Sepsis, unspecified organism; R65.20 - Severe sepsis without septic shock; J96.01 - Acute respiratory failure with hypoxia (4) Tachycardia: (5) Metastatic disease: Area of secondary neoplastic involvement: unspecified site Qualified Code(s): C79.9 - Secondary malignant neoplasm of unspecified site (6) Abnormal chest CT: (7) Rash: Plan Impression: 52-year-old female with stage IV cervical cancer (mets to lung and bone) she has a chronic thrombosis of the right femoral vein. She was brought to the emergency room with abdominal pain and found to have a partial small bowel obstruction. She was seen by surgery and managed conservatively. CT of the chest was performed which demonstrated multifocal airspace opacities. She had been on prednisone chronically for presumptive ICI pulmonary toxicity. Her chemotherapy is managed by [facility] and [facility]. 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 Prior films were not available to review. Recommendations: 1. Abnormal CT scan: Status post bronchoscopy: Unclear if these findings represent progression of malignancy or potential ICI toxicity. Correlation with her prior imaging studies would be required to evaluate some temporal pattern. This point time she appears stable and the CT scan has not shown significant progression of the fibrotic and cavitary diseases. Recommend outpatient follow- up with her medical oncology providers. 2. Potential opportunistic infection: Defer antibiotics to infectious disease. BAL performed per their request 3. Hypoxemia: Continue to wean oxygen as tolerated. This point in time I think the patient's care can be dictated by infectious disease and her hematology oncology providers. She will likely require supplemental oxygen to go home with. Pulmonary will sign off at this point in time. Feel free to contact us with questions or concerns Admission and Anticipated Discharge Date Admission Date: April 25, 2023 Subjective Patient seen and examined. EMR reviewed. Discussed with patient and spouse at bedside. The patient is doing reasonably well post bronchoscopy. She continues to use oxygen. She is having a dry nonproductive cough. She complained of some right lower abdominal pain. No pleuritic component. She has not had fevers overnight. Review of Systems 2 Review of Systems: All systems reviewed & are unremarkable except as noted in Subjective Physical Exam 2 Constitutional: WD/WN, vitals as above Neck: trachea midline, no thyromegaly Respiratory: no respiratory distress, no labored breathing, no cough and not tachypneic Auscultation: + crackles and + rhonchi; no wheezes Cardiovascular: Rate/Rhythm: regular rhythm and + tachycardic Heart Sounds: normal S1 and normal S2; no murmur Extremities: + edema Gastrointestinal (Abdomen): normal bowel sounds, soft, nontender, no hepatosplenomegaly Musculoskeletal: Extremities: extremities normal to inspection Skin: no rashes, warm and dry Lymphatic: no cervical lymphadenopathy Results & Data Results & Data Vital Signs (Past 12 Hours) Vital Signs Temp Pulse Pulse Resp BP Pulse Ox O2 Del Method 05/01/23 15:00 109 H 05/01/23 10:42 36.8 C 113 H 18 111/72 95 Nasal Cannula 05/01/23 08:00 Nasal Cannula 05/01/23 07:44 36.7 C 114 H 20 122/71 92 Nasal Cannula 05/01/23 07:00 111 H O2 Flow Rate 05/01/23 15:00 05/01/23 10:42 4 05/01/23 08:00 4 05/01/23 07:44 4 05/01/23 07:00 Laboratory Results 05/01/23 06:16 05/01/23 06:16 Bronchoscopy BAL: Differential 40% neutrophils, 21% lymphocytes, 3% eosinophils, 36% macrophages Cytology, negative for malignancy. No mycobacterial or fungal organisms identified on stains. Cultures pending including AFB, fungal, and routine respiratory PG Care Time/CCT Total # of Minutes Spent Total Time Spent with Patient: Total time spent is greater than 50% in coordination of care (as documented) at patient's floor/unit and/or counseling patient: Coding Level of Care Code 30372 SUB INP/OBS CARE 2/35MIN Diagnoses Immunocompromised patient D84.9 Bacteremia due to Gram-positive bacteria R78.81 Sepsis with acute hypoxic respiratory failure without septic shock, due to unspecified organism A41.9; R65.20; J96.01 Sepsis type: sepsis due to unspecified organism Sepsis acute organ dysfunction status: with acute organ dysfunction Severe sepsis acute organ dysfunction type: acute respiratory failure Acute respiratory failure type: with hypoxia Severe sepsis shock status: without septic shock Tachycardia R00.0 Metastatic disease C79.9 Area of secondary neoplastic involvement: unspecified site Abnormal chest CT R93.89 Rash R21
[2023-05-01] MEDS: HYDROcodone/HOMATROPINE SYRUP 5MG/1.5MG 5ML UDP PO PRN (20:12)
[2023-05-02 06:58] LABS: Basophils # (auto) 0.01 K/uL (0.00-0.20); Basophils % (auto) 0.2 %; Eosinophils # (auto) 0.09 K/uL (0.00-0.50); Eosinophils % (auto) 1.4 %; Hemoglobin 7.4 g/dl (12.0-16.0); Immature Granulocytes # (auto) 0.08 K/uL (0.01-0.20); Immature Granulocytes % (auto) 1.2 %; Lymphocytes # (auto) 0.74 K/uL (1.20-3.40); Lymphocytes % (auto) 11.4 %; Mean Corpuscular Hemoglobin 23.9 pg (25.0-34.0); Mean Corpuscular Hgb Conc 32.2 g/dL (32.0-36.0); Mean Corpuscular Volume 74.2 fL (80.0-100.0); Mean Platelet Volume 10.3 fL (9.4-12.4); Monocytes # (auto) 0.48 K/uL (0.11-0.59); Monocytes % (auto) 7.4 %; Neutrophils # (auto) 5.09 K/uL (1.40-6.50); Neutrophils % (auto) 78.4 %; Nucleated RBC # (auto) 0.02 K/uL (0.00-0.12); Nucleated RBC % (auto) 0.3 %; Platelet Count 175 K/uL (130-400); RDW Coefficient of Variation 21.3 % (11.5-14.5); RDW Standard Deviation 55.8 fL (36.4-46.3); White Blood Count 6.49 K/ul (4.8-10.8)
[2023-05-02 07:06] LABS: Magnesium 1.1 mg/dl (1.7-2.4); Phosphorus 2.4 mg/dl (2.5-4.9)
[2023-05-02 07:34] LABS: Acanthocytes 1+; Anisocytosis Present; Ovalocytes 1+; Tear Drop Cells 1+
[2023-05-02] MEDS: MAGNESIUM SULFATE / D5W 1 GM/100 ML BAG IV SCH (08:38)
[2023-05-02] MEDS: ENOXAPARIN INJ 60 MG/0.6 ML SYR SQ SCH (08:46)
--- NOTE | 2023-05-02 08:52 | Surgery Progress Note ---
Date of Service May 02, 2023 Assessment & Plan (1) SBO (small bowel obstruction): Plan: patient doing well from abdominal standpoint, appears SBO has resolved -tolerating diet, + bowel function, no abdominal complaints -discussed with medicine yesterday we will hold off on a venting G tube for a couple wks to allow her to recover from her pneumonia -in talks with case mngmt and palliative to see how we can accomplish getting pt set up with home suction for when venting G tube is place. this will help her manage any recurring SBOs at home and prevent frequent hospitalizations for small bowel obstructions -we will follow pt from the periphery, please call with any questions/concerns -will ask pt to f/u with us in clinic in 1 weeks time Admission and Anticipated Discharge Date Admission Date: April 25, 2023 Subjective Patient is feeling well from abdominal standpoint. Tolerating diet. + bowel function Physical Exam Physical Exam: awake/alert, sitting up at the side of the bed Gastrointestinal (Abdomen): Percussion/Palpation: abdomen soft; abdomen nontender Results & Data Vital Signs (Past 12 Hours) Vital Signs Temp Pulse Pulse Resp BP Pulse Ox O2 Del Method 05/02/23 06:58 36.4 C L 105 H 20 108/63 93 Nasal Cannula 05/02/23 04:05 36.5 C 96 H 18 101/60 93 Nasal Cannula 05/01/23 23:02 102 H 05/01/23 22:10 36.6 C 101 H 18 109/67 94 Nasal Cannula O2 Flow Rate 05/02/23 06:58 4 05/02/23 04:05 05/01/23 23:02 05/01/23 22:10 PG Care Time/CCT Total # of Minutes Spent Total Time Spent with Patient: Total time spent is greater than 50% in coordination of care (as documented) at patient's floor/unit and/or counseling patient: Coding Level of Care Code 29473 SUB INP/OBS CARE 04/26MIN Diagnoses SBO (small bowel obstruction) K56.609
--- NOTE | 2023-05-02 10:25 | Infectious Disease Progress Nt ---
Date of Service May 02, 2023 Assessment & Plan (1) Bacterial infection due to streptococcus, group A: (2) Sepsis: (3) Metastatic disease: (4) SBO (small bowel obstruction): (5) Chronic deep vein thrombosis (DVT): (6) Abdominal pain: (7) Primary cervical cancer with metastasis to other site: (8) Immunocompromised patient: (9) Abnormal chest CT: (10) Cavitary pneumonia: (11) Acute hypoxemic respiratory failure: (12) Cellulitis of left leg: (13) Rash of groin: Plan Anel Whitfield is a 52-year-old woman with metastatic cervical cancer s/p radical hysterectomy and appendectomy 2013, pelvic radiation 2016 (mets to lungs/bone, last treatment: gemcitabine 04/17/23, receives [id number] at clinic in [place], [place]), prior pneumonitis while on Keytruda (last given 07/2022) and has been on chronic prednisone 40 mg daily since 02/16/23, recent admissions 01/2023 and 03/2023 for SBOs, DVT, who presents to [facility] on 04/25/23 after developing abd pain, n/v, found to have possible SBO, acute hypoxemic respiratory failure, LLE erythema c/f SSTI, also with new L inguinal/truncal erythematous rash, and 04/25 Group A Strep bacteremia. Pts GAS may be from SSTI, also with spreading L truncal rash which could be c/f SSTI vs. NSTI, vs. other non-infectious process (?hemorrhage). 04/26 CT chest with extensive bilateral cavitations of unclear etiology; have started IV Bactrim for possible PJP. With GAS bacteremia in 4/4 bottles. Source may be LLE, which was newly erythematous and swollen on 04/25 and resembling cellulitis/SSTI. Also with new truncal/inguinal rash on 04/26. This was initially c/f Shingles given possibly dermatomal location however is now spreading past midline. The rash continues to spread, now throughout her lower abd and flank/back area. This spread could be c/f NSTI and would have low threshold for involvement of surgery. Also consider whether the petechial nature of the rash may reflect underlying hemorrhage (?Gilliam-Turners sign). GAS is a less likely pathogen for endocarditis but would nevertheless favor evaluating for deep-seated infection. Would repeat BCx to confirm clearance. 04/26 TTE without mass or vegetation. PT with port in place and also with known chronic nonocclusive RLE thrombus. With acute hypoxemic respiratory failure and CT A/P showing patchy consolidations with cavitations in lower lung, CXR with extensive patchy cavitary consolidations. Patient with a history of pneumonitis from Keytruda and with known lung mets. She is not on home O2 but is now hypoxemic. She has been on prednisone 40 mg daily since 01/2023, without PJP ppx. Would be highly concerned about PJP although difficult to discern which of her lung findings are new (prior to starting steroids, her 02/16 CT also with multiple irregular nodules, GGOs, central cavitation). Would be concerned for infectious component of her imaging findings. Especially with her chronic prednisone use, now with wide ddx including PJP, endemic fungi, Aspergillus, and other fungal pna. Will send PJP PCR in sputum, BDG, and also Aspergillus Ag and Histo UrAg. 04/26 serum LDH normal at 169. Will also send for bacterial SpCx, fungal SpCx, and AFB sputum (to evaluate for NTM/MAC). Can continue pip-tazo which will cover GAS bacteremia as well as possible bacterial HAP. Will change vancomycin to linezolid for anti-toxin effect given spreading truncal/inguinal rash, though will monitor blood counts carefully, and note that pt also on other serotonergic meds. With leukopenia (~2 weeks after gemcitabine). If this is persistent/worsening would consider G-CSF. Reasonable to continue acyclovir for now, though pts abd/inguinal rash thus far without vesicles and Shingles less likely at this time. Given the pts persistent respiratory failure, and 04/26 CT chest with worsening extensive bilateral cavitations and GGOs, will start treatment-dose IV Bactrim for PJP, as well as voriconazole + caspofungin for possible pulmonary Aspergillus/mold infection, especially while PJP/fungal studies are pending. (Note that posaconazole and isavuconazole are not on formulary at [facility]; if further clinical worsening or concern for Histo or Mucor, would require escalation to Ambisome). ID Problem List: 1.Group A Strep bacteremia 2.Immunosuppression due to chronic steroid use and chemotherapy for cervical cancer 3.Possible LLE SSTI 4.L-sided truncal/inguinal rash, possible SSTI/NSTI, possible Shingles 5.Chronic steroid use, not on PJP prophylaxis 6.Acute hypoxemic respiratory failure, [id number] pulmonary GGOs and cavitary lung lesions, cavitary pneumonia 7.History of pneumonitis from Keytruda 8.Leukopenia Recommendations: - Given stable BP and improved LE cellulitis - would dc linezolid, was on for antitoxin effect in setting of known GAS infection - Continue pip-tazo 4.5 g IV q8h to cover pneumonia and strep - C/W IV Bactrim 235 mg IV q8h for PJP while awaiting additional testing. Pt already on steroids. - C/W voriconazole and caspofungin (70 mg IV today, followed by 50 mg IV daily) combination therapy for possible Aspergillus/fungal infection, while awaiting studies for fungal pna. - Rash resolved - Closely monitor spreading truncal rash with low threshold for engagement of surgery for NSTI, consideration of abdominal hemorrhage -F/u Bronch results and testing - F/u: sputum bacterial cx / fungal cx / AFB cx (eval for NTM/MAC), PJP PCR in sputum, Legionella UrAg, BDG, Aspergillus Ag, Histo UrAg, Crypto Ag - F/u repeat BCx ordered for 04/26 NGTD -Monitor Cr and LFTs Lorrie Monte MD Infectious Diseases [facility]/ID Connect ID Connect direct line: [phone] Admission and Anticipated Discharge Date Admission Date: April 25, 2023 Subjective This patient recommendation is based on a telemedicine consult request which was completed asynchronously through chart review and information provided by the primary physician. The patient was not seen or examined today. The evaluation is consultative in nature and all patient care and treatment decisions can either be accepted or rejected by the patient's primary hospital-based treating physician using their own independent medical judgment for their patient. Time Spent Reviewing Chart: 11 - 20 minutes Results & Data Vital Signs (Past 12 Hours) Vital Signs Temp Pulse Pulse Resp BP Pulse Ox O2 Del Method 05/02/23 06:58 36.4 C L 105 H 20 108/63 93 Nasal Cannula 05/02/23 04:05 36.5 C 96 H 18 101/60 93 Nasal Cannula 05/01/23 23:02 102 H O2 Flow Rate 05/02/23 06:58 4 05/02/23 04:05 05/01/23 23:02 (2) Sepsis Acute respiratory failure type: with hypoxia Sepsis acute organ dysfunction status: with acute organ dysfunction Sepsis type: sepsis due to unspecified or ganism Severe sepsis acute organ dysfunction type: acute respiratory failure Severe sepsis shock status: without septic shock Qualified Code(s): A41.9 - Sepsis, unspecified organism; R65.20 - Severe sepsis without septic shock; J96.01 - Acute respiratory failure with hypoxia (3) Metastatic disease Area of secondary neoplastic involvement: unspecified site Qualified Code(s): C79.9 - Secondary malignant neoplasm of unspecified site
[2023-05-02] MEDS: FUROSEMIDE 40 MG/4 ML VIAL IV ONE (11:17)
[2023-05-02] MEDS: TRIMETH IV SCH (14:35)
[2023-05-02] MEDS: DEXTROSE 5% IV SCH (14:35)
[2023-05-02] MEDS: SULFA IV SCH (14:35)
[2023-05-02 15:25] LABS: Calcium 7.9 mg/dl (8.6-10.3); Creatinine Clr Calc Pharmacy 126.5 ml/min; Est GFR (Non-African American) 111.3 ml/min; Potassium 3.8 mmol/L (3.5-5.1)
[2023-05-02] MEDS: VORICONAZOLE IV SCH (15:35)
[2023-05-02] MEDS: SODIUM CHLORIDE 0.9% IV SCH (15:35)
[2023-05-02] MEDS ORDERED: Nursing to Pharmacy Communication SCH (16:30)
--- NOTE | 2023-05-02 16:45 | Hospitalist Progress Note ---
Date of Service May 02, 2023 Assessment & Plan (1) Sepsis: (2) Bacteremia due to Gram-positive bacteria: (3) Immunocompromised patient: Plan Ms. Whitfield is a 52 year old female with PMH stage IV cervical cancer with metastasis to lungs, pelvis & vertebrae, chronic thrombosis right femoral vein, BLE thrombectomy and stenting on chronic Lovenox and Pletal, right ureteral stricture, history of adjustment disorder with anxiety, pelvic radiation 2016 (mets to lungs/bone, last treatment: gemcitabine 04/17/23, receives [id number] at clinic in [place], [place]), prior pneumonitis while on Keytruda (last given 07/2022), and chronic prednisone 40 mg daily since 02/16/23 not on PJP ppx, presented with abdominal pain and found to have small bowel obstruction on CT imaging with transition point in RLQ. Acute on chronic small bowel obstructions CT ABD on admission shows a small bowel obstruction with transition point in RLQ Patient initially admitted on 04/25 for management of SBO; however, course complicated by hypoxia, tachycardia, and tenuous hemodynamics. Patient transferred to ICU for close hemodynamic monitoring. Blood culture on admission showed group A beta strep; sensitive to penicillin. Likely source was thought left lower leg cellulitis. Recent admission managed conservatively, follows OP Gen Surgery on 04/16 regarding symptoms and encouraged to hydrate, trial of Bentyl No more symptoms or signs of SBO She has been tolerating diet and has being having regular bowel movement She has been tolerating diet and does not have any symptoms of SBO Appreciate surgery input and recommendation for venting PEG tube placement The patient has been agreeable to it-surgery is going to discuss this with the ID specialist Proposed surgery with venting PEG tube placement will be done as an outpatient and the patient is agreeable Sepsis, POA 2/2 GAS bacteremia POA, Left lower leg cellulitis Immunocompromised Blood Cultures 04/25 4/4 + GAS UA noninfectious appearance Source likely left leg cellulitis MRSA negative ECHO without vegetations/mass Infectious Disease on consult, reviewed following recommendations -GAS less likely pathogen for endocarditis, ECHO completed w/o visible vegetations -Repeat blood culture negative so far -Vancomycin transitioned to Linezolid for antitoxin effect iso GAS -Continue Zosyn for GAS bacteremia and HAP coverage iso resp failure -Monitor clinical improvement, consider antifungal coverage -Zyvox has been discontinued with continuation of antifungals as mentioned below Hydrocortisone changed over to prednisone. Follow-up on infectious disease recommendation. Course further complicated by the acute hypoxemic respiratory failure, as well as increased patchy consolidations and cavitations of bilateral lower lungs. Patient has metastatic lung disease as well as prior pembrolizumab pneumonitis, Remains afebrile on current regimen of antibiotic antifungal White blood cell count is normal but remains tachycardic Will follow ID recommendation on antibiotic and antifungal Awaiting ID recommendations for further use of antibiotics and antifungals Current infectious work up ordered thus far: BAL Cryptococcal antigen not detected TB test QFT negative Sputum Gram stain negative and culture is negative too Fungal smear-negative. Culture is pending Repeat blood cultures negative Histoplasma galactomannan antibody pending, Legionella source/culture pending, urine Legionella antibody pending Pneumocystis J PCR-pending Respiratory virus culture rapid-pending 04/26/2023 Blood Culture 07/04 GAS 04/27/2023 Blood Culture NGTD Acute hypoxic respiratory failure, multifactorial CT chest from 04/27 shows extensive bilateral mixed interstitial and alveolar opacities with irregular consolidative, centrally cavitary foci. Worsened compared to previous CT. Possible differentials include PJP pneumonia, pneumonitis from Keytruda, multifocal pneumonia. On full dose bactrim per ID, will deescalate to ppx dose contingent upon return of PJP PCR Patient also on Capsofungin and voriconazole for possible fungal pneumonia. Aspergillus antigen and histo urine antigen pending. Status post bronchoscopy and bronchoalveolar lavage-relevant tests have been pending Will continue current antibiotics and antifungal Remains stable without any further improvement Will try Hycodan for hacking cough Noted to have a positive fluid balance of 20 L Will give 40 of Lasix IV with 10 mg of potassium IV Has had profuse diarrhea since yesterday following a dose of Lasix and the patient is feeling much better Will give another dose of Lasix of 40 mg IV today Check PRP-at around 3 PM potassium was normal Acute anemia, likely 2/2 ongoing sepsis, dilutional component Anemia of chronic disease Status post 2 units of packed RBC. No signs or symptoms of bleeding. Hemoglobin stable at 9.1 as of 04/30/2023 Hypercoagulability 2/2 metastatic disease Chronic R fem thrombosis, BLE thrombectomy Acute on Chronic Left lower extremity Lymphedema Chronic Anticoagulation Doppler with chronic nonocclusive thrombus RLE extent "improved from prior" per read, correction from prior note NO left LE dvt Will change heparin to Lovenox as anti-Xa heparin level is persistently low. Patient is at 100 mg Lovenox twice daily. She reports that it was started when her weight was higher. Discussed with patient and regarding Lovenox 50 mg twice a day based on her weight presently. She is agreeable with that. Continue cilostazol 50mg BID, monitor platelets on CBC Follow-up on anti-Xa level 4 hours after Lovenox dose(3rd dose) to ensure it is within therapeutic range. Dose might be needed to be changed depending on anti-Xa level. Lovenox has been restarted Primary cervical cancer with metastatic disease Know mets to lungs, pelvis, vertebra CT scan with cavitary lesions, increased since imaging obtained 03/28 Last treatment: 04/17~, received gemcitabine q2 weeks in [place], [place] clinic Continue fentanyl patch, duloxetine 60mg, Gabapentin 200mg BID Sinus Tachycardia Prolonged QTc Reports baseline HR in low 100s, ranging 120-150s on admission Likely multifactorial, hypoxia/sepsis Continue telemetry and hemodynamic monitoring in ICU QTc improved 04/27, 446 from 500 Likely secondary to use of bronchodilator Complicated by ongoing infection without any fever and or chills Will advised to drink more fluid Hypokalemia Hypomagnesemia -Repleted KARIN *, resolved -Cr up to 1.3, now downtrending with IVF -Continues to be on IV fluids for now Severe protein calorie malnutrition -BMI 17.81, iso chronic illness/metastatic disease 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 Patient and open to rediscuss CODE STATUS depending on patient's clinical status. For the time beingshe is okay with a trial of CPR and intubation if it is for short-term only. Dispositionpatient hospitalized with multiple issues outlined above. PT OT ordered. Please note the above document was generated using voice recognition software. It may contain grammatical, syntax or spelling errors. Any formal questions or concerns about the content, text or information contained within the body of this dictation should be directly addressed to the provider for clarification Admission and Anticipated Discharge Date Admission Date: April 25, 2023 Subjective 04/30/2023 The patient was seen and examined in telemetry unit in presence of the family members She has been complaining of shortness of breath without chest tightness and/or wheezing She is status post bronchoscopy and bronchial lavage and complaining more cough Denies any chest pain, palpitation,, abdominal pain, nausea and or vomiting 05/01/2023 The patient was seen and examined in telemetry unit She has been coughing a lot Shortness of breath remains stable and still being tachycardic at 113/min She denies any fever and or chills Has been tolerating diet and denies any nausea or vomiting today 05/02/2023 The patient was seen and examined in telemetry unit in presence of the She has been feeling a little better Her breathing seems to better and cough is improved Minimal pain at the right lower anterior chest wall likely secondary to cough Denies any abdominal symptom No fever and or chills but remains tachycardic Review of Systems Review of Systems: All systems reviewed and are unremarkable except as noted below Physical Exam Physical Exam: Lying in bed with minimal shortness of breath at rest Constitutional: well developed, well nourished, + ill appearing and average body habitus Eyes: PERRL, conjunctivae normal, anicteric sclerae ENMT: external ear and nose normal, oropharynx normal Neck: trachea midline, no thyromegaly Respiratory: + respiratory distress (Mild to moderate respiratory distress) Auscultation: + diminished lung sounds and + crackles (Minimal crackles bibasally) Cardiovascular: Rate/Rhythm: regular rate, regular rhythm and + tachycardic Heart Sounds: normal S1 and normal S2; no murmur Extremities: + edema (Trace on right side and lymphedema with edema on the left) Gastrointestinal (Abdomen): Inspection/Auscultation: normal bowel sounds; abdomen not distended Percussion/Palpation: abdomen soft; abdomen nontender Neurologic: normal touch/pain/proprioception and moves all extremities; no focal motor deficits Lymphatic: no cervical or axillary lymphadenopathy Results & Data Results & Data Vital Signs (Past 12 Hours) Vital Signs Temp Pulse Pulse Resp BP Pulse Ox O2 Del Method 05/02/23 16:15 36.3 C L 110 H 19 108/65 93 Nasal Cannula 05/02/23 15:00 119 H 05/02/23 10:54 36.3 C L 117 H 20 107/69 95 Nasal Cannula 05/02/23 08:00 Nasal Cannula 05/02/23 08:00 105 H 05/02/23 06:58 36.4 C L 105 H 20 108/63 93 Nasal Cannula O2 Flow Rate 05/02/23 16:15 4 05/02/23 15:00 05/02/23 10:54 4 05/02/23 08:00 4 05/02/23 08:00 05/02/23 06:58 4 Laboratory Results Short CBC 05/02/23 Range/Units 06:07 WBC 6.49 (4.8-10.8) K/ul Hgb 7.4 L (12.0-16.0) g/dl Hct 23.0 L (37.0-47.0) % Plt Count 175 (130-400) K/uL BMP 05/02/23 14:54 Sodium 133 L Potassium 3.8 Chloride 99 Carbon Dioxide 26 BUN 8 Creatinine 0.50 L Glucose 144 H Calcium 7.9 L Medications Administered Current Inpatient Medications Artificial Tears (Artificial Tears) 1 drops OP QID PRN PRN Reason: Dryness Stop: 05/26/23 12:26 Benzonatate (Benzonatate 100 Mg Capsule) 100 mg PO TID PRN PRN Reason: Cough Stop: 05/29/23 09:27 Last Admin: 05/02/23 07:24 Dose: 100 mg Cilostazol (Cilostazol 100 Mg Tab) 50 mg PO BID SAE Stop: 05/26/23 08:59 Last Admin: 05/02/23 08:44 Dose: 50 mg Duloxetine HCl (Duloxetine Hcl 60 Mg Cap) 60 mg PO QAM SAE Stop: 05/26/23 08:59 Last Admin: 05/02/23 08:45 Dose: 60 mg Enoxaparin Sodium (Enoxaparin Inj 60 Mg/0.6 Ml Syr) 60 mg SQ Q12H SAE Stop: 06/01/23 08:59 Last Admin: 05/02/23 08:46 Dose: 60 mg Fentanyl (Fentanyl 12 Mcg/Hr Tdsy) 12 mcg TD Q72H SAE Stop: 05/09/23 22:14 Last Admin: 05/01/23 21:50 Dose: 12 mcg Gabapentin (Gabapentin 100 Mg Cap) 200 mg PO BID SAE Stop: 05/26/23 08:59 Last Admin: 05/02/23 08:45 Dose: 200 mg Hydrocodone Bit/Homatropine Methylb (Hydrocodone/Homatropine Syrup 5mg/1.5mg 5ml Udp) 5 ml PO Q6H PRN PRN Reason: Cough Stop: 05/15/23 11:00 Last Admin: 05/02/23 03:10 Dose: 5 ml Hydromorphone HCl (Hydromorphone Inj 0.5 Mg/0.5 Ml Syr) 0.5 mg IV Q2HWA PRN PRN Reason: Pain Stop: 05/10/23 15:31 Last Admin: 05/02/23 11:23 Dose: 0.5 mg Promethazine HCl 6.25 mg/ (Sodium Chloride) 50.25 mls @ 201 mls/hr IV Q6H PRN PRN Reason: Nausea And Vomiting Stop: 05/25/23 21:39 Last Infusion: 04/26/23 01:35 Dose: Infused Lorazepam 0.25 mg/ Syringe 0.25 mls @ 2 mls/min IV Q4H PRN PRN Reason: Anxiety/Agitation Stop: 05/26/23 01:22 Last Admin: 05/01/23 22:17 Dose: 2 mls/min Piperacillin Sod/Tazobactam (Sod 4.5 gm/ Dextrose) 100 mls @ 25 mls/hr IV Q8H [facility]; Protocol Stop: 05/10/23 14:29 Last Admin: 05/02/23 13:58 Dose: 25 mls/hr Pantoprazole Sodium 40 mg/ (Syringe) 10 mls @ 5 mls/min IV DAILY@1100 [facility] Stop: 05/26/23 10:59 Last Admin: 05/02/23 11:17 Dose: 5 mls/min Caspofungin 50 mg/ Sodium (Chloride) 260 mls @ 250 mls/hr IV Q24H [facility]; Protocol Stop: 05/05/23 18:29 Last Infusion: 05/01/23 19:33 Dose: Infused Linezolid (Zyvox) 600 mg in 300 mls @ 300 mls/hr IV Q12H [facility] Stop: 05/12/23 13:59 Last Infusion: 05/02/23 15:19 Dose: Infused Trimethoprim/Sulfamethoxazole (350 mg/ Dextrose) 521.875 mls @ 333.333 mls/hr IV Q8H [facility]; Protocol Stop: 05/09/23 14:29 Last Infusion: 05/02/23 16:20 Dose: Infused Voriconazole 280 mg/ Sodium (Chloride) 100 mls @ 50 mls/hr IV Q12H [facility] Stop: 05/09/23 14:59 Last Admin: 05/02/23 15:35 Dose: 50 mls/hr Lidocaine (Lidocaine 5% 1 Patch) 1 patch TD QAM [facility] Stop: 05/25/23 23:29 Magnesium Oxide (Magnesium Oxide 400 Mg Tab) 400 mg PO BID [facility] Stop: 05/31/23 08:59 Last Admin: 05/02/23 08:45 Dose: 400 mg Melatonin (Melatonin 3 Mg Tab) 3 mg PO [facility] Stop: 05/26/23 20:59 Miscellaneous (Check Fentanyl Patch Placement) 1 each N/A QS [facility] Stop: 05/26/23 00:00 Last Admin: 05/02/23 16:21 Dose: 1 each Miscellaneous (Fentanyl Patch Remove & Waste) 1 each N/A Q3D [facility] Stop: 05/25/23 22:14 Last Admin: 05/01/23 21:52 Dose: 1 each Miscellaneous (Order Awaiting Action [Varenicline [Tyrvaya] 0.03 Mg/[place], Metered, Non-Aeroso]) 1 each N/A QS [facility] Stop: 05/26/23 00:00 Last Admin: 04/26/23 09:23 Dose: Not Given Miscellaneous (Remove Lidoderm Patch) 1 each N/A HS [facility] Stop: 06/01/23 20:59 Olanzapine (Olanzapine 2.5 Mg Tab) 2.5 mg PO [facility] Stop: 05/26/23 20:59 Last Admin: 05/01/23 20:06 Dose: 2.5 mg Ondansetron HCl (Ondansetron Inj 2 Mg/Ml 2 Ml Vial) 4 mg IV Q6H PRN PRN Reason: Nausea Stop: 05/26/23 13:23 Last Admin: 04/27/23 14:54 Dose: 4 mg Potassium Chloride (Potassium Chloride Crtab 20 Meq Tabcr) 20 meq PO BID [facility] Stop: 05/31/23 08:59 Last Admin: 05/02/23 08:45 Dose: 20 meq Prednisone (Prednisone 20 Mg Tab) 40 mg PO DAILY SAE Stop: 05/29/23 14:14 Last Admin: 05/02/23 08:46 Dose: 40 mg Tramadol HCl (Tramadol Hcl 50 Mg Tablet) 25 mg PO Q4H PRN PRN Reason: Pain Stop: 05/26/23 00:46 (1) Sepsis Acute respiratory failure type: with hypoxia Sepsis acute organ dysfunction status: with acute organ dysfunction Sepsis type: sepsis due to unspecified organism Severe sepsis acute organ dysfunction type: acute respiratory failure Severe sepsis shock status: without septic shock Qualified Code(s): A41.9 - Sepsis, unspecified organism; R65.20 - Severe sepsis without septic shock; J96.01 - Acute respiratory failure with hypoxia
[2023-05-03] MEDS: POLYETHYLENE (MIRALAX) 17 GM PACK PO PRN (05:53)
[2023-05-03 07:02] LABS: Basophils # (auto) 0.01 K/uL (0.00-0.20); Basophils % (auto) 0.1 %; Eosinophils # (auto) 0.08 K/uL (0.00-0.50); Hematocrit (blood only) 26.8 % (37.0-47.0); Hemoglobin 8.2 g/dl (12.0-16.0); Immature Granulocytes # (auto) 0.17 K/uL (0.01-0.20); Lymphocytes # (auto) 0.58 K/uL (1.20-3.40); Lymphocytes % (auto) 6.9 %; Mean Corpuscular Hemoglobin 23.5 pg (25.0-34.0); Mean Corpuscular Hgb Conc 30.6 g/dL (32.0-36.0); Mean Corpuscular Volume 76.8 fL (80.0-100.0); Mean Platelet Volume 10.8 fL (9.4-12.4); Monocytes # (auto) 0.21 K/uL (0.11-0.59); Monocytes % (auto) 2.5 %; Neutrophils # (auto) 7.35 K/uL (1.40-6.50); Neutrophils % (auto) 87.5 %; Nucleated RBC # (auto) 0.05 K/uL (0.00-0.12); Nucleated RBC % (auto) 0.6 %; Platelet Count 237 K/uL (130-400); RDW Coefficient of Variation 22.1 % (11.5-14.5); Red Blood Count 3.49 M/uL (4.20-5.40)
[2023-05-03 07:35] LABS: Ovalocytes 1+; Tear Drop Cells 1+
[2023-05-03] MEDS: LIDOCAINE 5% 1 PATCH TD SCH (07:42)
[2023-05-03 07:44] LABS: Albumin Globulin Ratio 1.3 (0.9-2); Albumin Level 2.8 gm/dl (3.4-5.0); BUN Creatinine Ratio 16.2 (10-20); Bilirubin,Total 0.2 mg/dl (0.2-1.0); Calcium 8.4 mg/dl (8.6-10.3); Creatinine Clr Calc Pharmacy 170.5 ml/min; Est GFR (African American) 142.4 ml/min; Est GFR (Non-African American) 122.9 ml/min; Globulin 2.2 gm/dl (2.5-4.0); Magnesium 1.2 mg/dl (1.7-2.4); Phosphorus 2.2 mg/dl (2.5-4.9); Potassium 3.9 mmol/L (3.5-5.1)
[2023-05-03] MEDS ORDERED: SODIUM PHOSPHATE 3 MMOL/1 ML 5 ML VIAL IV ONE (08:11)
[2023-05-03] MEDS: MAGNESIUM SULFATE / D5W 1 GM/100 ML BAG IV SCH (10:30)
[2023-05-03] MEDS: SODIUM PHOSPHATE 20 MMOL in SODIUM CHLORIDE 0.9% 500 ML IV ONE (10:30)
--- NOTE | 2023-05-03 12:25 | XRay Report ---
SINGLE VIEW CHEST CLINICAL HISTORY: Pneumonia. FINDINGS: An AP, portable, upright chest radiograph is compared to study dated 04/26/2023 and correlat ed with chest CT dated 04/27/2023. An enteric tube has been removed. A right internal jugular central venous infusion port is unchanged in position. Foci mariya likely represent lymphadenopathy. The cardio mediastinal silhouette is unremarkable. Extensive/multifocal airspace consolidation is again seen thr oughout both lungs. Fluid has partially filled a focus of cavitation within the left mid lung. No lar ge pleural effusion or pneumothorax is seen. The skeletal structures are osteopenic. There are chroni c/healed left-sided rib fractures. Distended small bowel loops in the upper abdomen are consistent wi th obstruction. IMPRESSION: 1. Multifocal airspace consolidation throughout both lungs is similar to 04/26/2023 examination noting foci of cavitation. 2. No large pleural effusion is seen. 3. Small bowel obstruction is noted in the upper abdomen. ACT 112: Negative or not required by law. Electronically signed by: Shaheen Blanca M.D. 05/03/2023 12:24 PM
--- NOTE | 2023-05-03 14:43 | Hospitalist Progress Note ---
Date of Service May 03, 2023 Assessment & Plan (1) Sepsis: (2) Bacteremia due to Gram-positive bacteria: (3) Immunocompromised patient: Plan Ms. Whitfield is a 52 year old female with PMH stage IV cervical cancer with metastasis to lungs, pelvis & vertebrae, chronic thrombosis right femoral vein, BLE thrombectomy and stenting on chronic Lovenox and Pletal, right ureteral stricture, history of adjustment disorder with anxiety, pelvic radiation 2016 (mets to lungs/bone, last treatment: gemcitabine 04/17/23, receives p0pmcst at clinic in [place], [place]), prior pneumonitis while on Keytruda (last given 07/2022), and chronic prednisone 40 mg daily since 02/16/23 not on PJP ppx, presented with abdominal pain and found to have small bowel obstruction on CT imaging with transition point in RLQ. Acute on chronic small bowel obstructions CT ABD on admission shows a small bowel obstruction with transition point in RLQ Patient initially admitted on 04/25 for management of SBO; however, course complicated by hypoxia, tachycardia, and tenuous hemodynamics. Patient transferred to ICU for close hemodynamic monitoring. Blood culture on admission showed group A beta strep; sensitive to penicillin. Likely source was thought left lower leg cellulitis. Recent admission managed conservatively, follows OP Gen Surgery on 04/16 regarding symptoms and encouraged to hydrate, trial of Bentyl No more symptoms or signs of SBO She has been tolerating diet and has being having regular bowel movement She has been tolerating diet and does not have any symptoms of SBO Appreciate surgery input and recommendation for venting PEG tube placement The patient has been agreeable to it-surgery is going to discuss this with the ID specialist Proposed surgery with venting PEG tube placement will be done as an outpatient and the patient is agreeable Bowel is moved this morning but she complains today of some swelling of the upper abdomen Chest x-ray done this morning showed possible small bowel obstruction-will observe for now Sepsis, POA 2/2 GAS bacteremia POA, Left lower leg cellulitis Immunocompromised Blood Cultures 04/25 07/04 + GAS UA noninfectious appearance Source likely left leg cellulitis MRSA negative ECHO without vegetations/mass Infectious Disease on consult, reviewed following recommendations -GAS less likely pathogen for endocarditis, ECHO completed w/o visible vegetations -Repeat blood culture negative so far -Vancomycin transitioned to Linezolid for antitoxin effect iso GAS -Continue Zosyn for GAS bacteremia and HAP coverage iso resp failure -Monitor clinical improvement, consider antifungal coverage -Zyvox has been discontinued with continuation of antifungals as mentioned below Hydrocortisone changed over to prednisone. Follow-up on infectious disease recommendation. Course further complicated by the acute hypoxemic respiratory failure, as well as increased patchy consolidations and cavitations of bilateral lower lungs. Patient has metastatic lung disease as well as prior pembrolizumab pneumonitis, Remains afebrile on current regimen of antibiotic antifungal White blood cell count is normal but remains tachycardic Will follow ID recommendation on antibiotic and antifungal Discussed with the ID specialist and she will have a follow-up with the patient tomorrow morning to have oral antibiotics regimen Advised to have a repeat CT of the chest in about 2 weeks with an appointment with pulmonology and ID specialist in around 2 to 3 weeks timeframe Current infectious work up ordered thus far: BAL Cryptococcal antigen not detected TB test QFT negative Sputum Gram stain negative and culture is negative too Fungal smear-negative. Culture is pending Repeat blood cultures negative Histoplasma galactomannan antibody pending, Legionella source/culture pending, urine Legionella antibody pending Pneumocystis J PCR-pending Respiratory virus culture rapid-pending 04/26/2023 Blood Culture 07/04 GAS 04/27/2023 Blood Culture NGTD Acute hypoxic respiratory failure, multifactorial CT chest from 04/27 shows extensive bilateral mixed interstitial and alveolar opacities with irregular consolidative, centrally cavitary foci. Worsened compared to previous CT. Possible differentials include PJP pneumonia, pneumonitis from Keytruda, multifocal pneumonia. On full dose bactrim per ID, will deescalate to ppx dose contingent upon return of PJP PCR Patient also on Capsofungin and voriconazole for possible fungal pneumonia. Aspergillus antigen and histo urine antigen pending. Status post bronchoscopy and bronchoalveolar lavage-relevant tests have been pending Will continue current antibiotics and antifungal Remains stable without any further improvement Will try Hycodan for hacking cough Noted to have a positive fluid balance of 20 L Will give 40 of Lasix IV with 10 mg of potassium IV Has had profuse diarrhea since yesterday following a dose of Lasix and the patient is feeling much better Will give another dose of Lasix of 40 mg IV today Check PRP-at around 3 PM potassium was normal Repeat chest x-ray did not show any change in her bilateral multifocal pneumonia Acute anemia, likely 2/2 ongoing sepsis, dilutional component Anemia of chronic disease Status post 2 units of packed RBC. No signs or symptoms of bleeding. Hemoglobin stable at 9.1 as of 04/30/2023 Hemoglobin is 8.2 seems to be stable Hypercoagulability 2/2 metastatic disease Chronic R fem thrombosis, BLE thrombectomy Acute on Chronic Left lower extremity Lymphedema Chronic Anticoagulation Doppler with chronic nonocclusive thrombus RLE extent "improved from prior" per read, correction from prior note NO left LE dvt Will change heparin to Lovenox as anti-Xa heparin level is persistently low. Patient is at 100 mg Lovenox twice daily. She reports that it was started when her weight was higher. Discussed with patient and regarding Lovenox 50 mg twice a day based on her weight presently. She is agreeable with that. Continue cilostazol 50mg BID, monitor platelets on CBC Follow-up on anti-Xa level 4 hours after Lovenox dose(3rd dose) to ensure it is within therapeutic range. Dose might be needed to be changed depending on anti-Xa level. Lovenox has been restarted Primary cervical cancer with metastatic disease Know mets to lungs, pelvis, vertebra CT scan with cavitary lesions, increased since imaging obtained 03/28 Last treatment: 04/17~, received gemcitabine q2 weeks in [place], [place] clinic Continue fentanyl patch, duloxetine 60mg, Gabapentin 200mg BID Anticancer medications are on hold Of her to have a primary oncologist locally but she decided not to have any new oncologist that she will have follow-up with her oncologist in [place] Sinus Tachycardia Prolonged QTc Reports baseline HR in low 100s, ranging 120-150s on admission Likely multifactorial, hypoxia/sepsis Continue telemetry and hemodynamic monitoring in ICU QTc improved 04/27, 446 from 500 Likely secondary to use of bronchodilator Complicated by ongoing infection without any fever and or chills Will advised to drink more fluid Remains tachycardic Hypokalemia Hypomagnesemia -Repleted KARIN *, resolved -Cr up to 1.3, now downtrending with IVF -Continues to be on IV fluids for now Severe protein calorie malnutrition -BMI 17.81, iso chronic illness/metastatic disease 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, log marker when able to take po Diet: Full liquid diet Analgesia: home pain regimen, CTM Sedation: Not required at this time DVT: Lovenox Ulcer PPX IV PPI Deescalate abx per ID recommendations PT/OT when tolerated DVT prophylaxis Lovenox CODE STATUSfull code. Patient and open to rediscuss CODE STATUS depending on patient's clinical status. For the time beingshe is okay with a trial of CPR and intubation if it is for short-term only. Dispositionpatient hospitalized with multiple issues outlined above. PT OT ordered. Please note the above document was generated using voice recognition software. It may contain grammatical, syntax or spelling errors. Any formal questions or concerns about the content, text or information contained within the body of this dictation should be directly addressed to the provider for clarification Admission and Anticipated Discharge Date Admission Date: April 25, 2023 Subjective 04/30/2023 The patient was seen and examined in telemetry unit in presence of the family members She has been complaining of shortness of breath without chest tightness and/or wheezing She is status post bronchoscopy and bronchial lavage and complaining more cough Denies any chest pain, palpitation,, abdominal pain, nausea and or vomiting 05/01/2023 The patient was seen and examined in telemetry unit She has been coughing a lot Shortness of breath remains stable and still being tachycardic at 113/min She denies any fever and or chills Has been tolerating diet and denies any nausea or vomiting today 05/02/2023 The patient was seen and examined in telemetry unit in presence of the She has been feeling a little better Her breathing seems to better and cough is improved Minimal pain at the right lower anterior chest wall likely secondary to cough Denies any abdominal symptom No fever and or chills but remains tachycardic 05/03/2023 The patient was seen and examined in telemetry unit She has been a little better but is still requiring 4 L of oxygen via nasal cannula to maintain saturation Cough is improved Complained of some abdominal distention without nausea or vomiting Left leg swelling persist Review of Systems Review of Systems: All systems reviewed and are unremarkable except as noted below Physical Exam Physical Exam: Lying in bed with minimal shortness of breath at rest Constitutional: well developed, well nourished, + ill appearing and average body habitus Eyes: PERRL, conjunctivae normal, anicteric sclerae ENMT: external ear and nose normal, oropharynx normal Neck: trachea midline, no thyromegaly Respiratory: + respiratory distress (Mild to moderate respiratory distress) Auscultation: + diminished lung sounds and + crackles (Minimal crackles bibasally) Cardiovascular: Rate/Rhythm: regular rate, regular rhythm and + tachycardic Heart Sounds: normal S1 and normal S2; no murmur Extremities: + edema (Trace on right side and lymphedema with edema on the left) Gastrointestinal (Abdomen): Inspection/Auscultation: normal bowel sounds; abdomen not distended Percussion/Palpation: abdomen soft; abdomen nontender Neurologic: normal touch/pain/proprioception and moves all extremities; no focal motor deficits Lymphatic: no cervical or axillary lymphadenopathy Results & Data Results & Data Vital Signs (Past 12 Hours) Vital Signs Temp Pulse Resp BP Pulse Ox O2 Del Method O2 Flow Rate 05/03/23 11:22 36.6 C 115 H 20 123/75 91 Nasal Cannula 4 05/03/23 07:17 36.5 C 110 H 20 111/70 94 Nasal Cannula 4 Laboratory Results Short CBC 05/03/23 Range/Units 06:26 WBC 8.40 (4.8-10.8) K/ul Hgb 8.2 L (12.0-16.0) g/dl Hct 26.8 L (37.0-47.0) % Plt Count 237 (130-400) K/uL BMP 05/02/23 05/03/23 14:54 06:26 Sodium 133 L 133 L Potassium 3.8 3.9 Chloride 99 100 Carbon Dioxide 26 26 BUN 8 6 Creatinine 0.50 L 0.37 L Glucose 144 H 94 Calcium 7.9 L 8.4 L Liver Function 05/03/23 Range/Units 06:26 Total Bilirubin 0.2 (0.2-1.0) mg/dl AST 8 L (13-39) U/L ALT 6 L (7-52) U/L Alkaline Phosphatase 102 (34-104) U/L Albumin 2.8 L (3.4-5.0) gm/dl Medications Administered Current Inpatient Medications Artificial Tears (Artificial Tears) 1 drops OP QID PRN PRN Reason: Dryness Stop: 05/26/23 12:26 Benzonatate (Benzonatate 100 Mg Capsule) 100 mg PO TID PRN PRN Reason: Cough Stop: 05/29/23 09:27 Last Admin: 05/03/23 11:41 Dose: 100 mg Cilostazol (Cilostazol 100 Mg Tab) 50 mg PO BID [facility] Stop: 05/26/23 08:59 Last Admin: 05/03/23 07:41 Dose: 50 mg Duloxetine HCl (Duloxetine Hcl 60 Mg Cap) 60 mg PO QAM [facility] Stop: 05/26/23 08:59 Last Admin: 05/03/23 07:39 Dose: 60 mg Enoxaparin Sodium (Enoxaparin Inj 60 Mg/0.6 Ml Syr) 60 mg SQ Q12H SAE Stop: 06/01/23 08:59 Last Admin: 05/03/23 07:38 Dose: 60 mg Fentanyl (Fentanyl 12 Mcg/Hr Tdsy) 12 mcg TD Q72H [facility] Stop: 05/09/23 22:14 Last Admin: 05/01/23 21:50 Dose: 12 mcg Gabapentin (Gabapentin 100 Mg Cap) 200 mg PO BID [facility] Stop: 05/26/23 08:59 Last Admin: 05/03/23 07:40 Dose: 200 mg Hydrocodone Bit/Homatropine Methylb (Hydrocodone/Homatropine Syrup 5mg/1.5mg 5ml Udp) 5 ml PO Q6H PRN PRN Reason: Cough Stop: 05/15/23 11:00 Last Admin: 05/03/23 13:00 Dose: 5 ml Hydromorphone HCl (Hydromorphone Inj 0.5 Mg/0.5 Ml Syr) 0.5 mg IV Q2HWA PRN PRN Reason: Pain Stop: 05/10/23 15:31 Last Admin: 05/03/23 10:59 Dose: 0.5 mg Promethazine HCl 6.25 mg/ (Sodium Chloride) 50.25 mls @ 201 mls/hr IV Q6H PRN PRN Reason: Nausea And Vomiting Stop: 05/25/23 21:39 Last Infusion: 04/26/23 01:35 Dose: Infused Lorazepam 0.25 mg/ Syringe 0.25 mls @ 2 mls/min IV Q4H PRN PRN Reason: Anxiety/Agitation Stop: 05/26/23 01:22 Last Admin: 05/02/23 21:46 Dose: 2 mls/min Piperacillin Sod/Tazobactam (Sod 4.5 gm/ Dextrose) 100 mls @ 25 mls/hr IV Q8H [facility]; Protocol Stop: 05/10/23 14:29 Last Infusion: 05/03/23 11:41 Dose: Infused Pantoprazole Sodium 40 mg/ (Syringe) 10 mls @ 5 mls/min IV DAILY@1100 [facility] Stop: 05/26/23 10:59 Last Admin: 05/03/23 11:03 Dose: 5 mls/min Caspofungin 50 mg/ Sodium (Chloride) 260 mls @ 250 mls/hr IV Q24H [facility]; Protocol Stop: 05/05/23 18:29 Last Infusion: 05/02/23 19:17 Dose: Infused Linezolid (Zyvox) 600 mg in 300 mls @ 300 mls/hr IV Q12H [facility] Stop: 05/12/23 13:59 Last Infusion: 05/03/23 03:49 Dose: Infused Trimethoprim/Sulfamethoxazole (350 mg/ Dextrose) 521.875 mls @ 333.333 mls/hr IV Q8H [facility]; Protocol Stop: 05/09/23 14:29 Last Infusion: 05/03/23 11:42 Dose: Infused Voriconazole 280 mg/ Sodium (Chloride) 100 mls @ 50 mls/hr IV Q12H [facility] Stop: 05/09/23 14:59 Last Infusion: 05/03/23 04:28 Dose: Infused Lidocaine (Lidocaine 5% 1 Patch) 1 patch TD QAM [facility] Stop: 05/25/23 23:29 Last Admin: 05/03/23 07:42 Dose: 1 patch Magnesium Oxide (Magnesium Oxide 400 Mg Tab) 400 mg PO BID [facility] Stop: 05/31/23 08:59 Last Admin: 05/03/23 07:40 Dose: 400 mg Melatonin (Melatonin 3 Mg Tab) 3 mg PO HS [facility] Stop: 05/26/23 20:59 Miscellaneous (Check Fentanyl Patch Placement) 1 each N/A QS [facility] Stop: 05/26/23 00:00 Last Admin: 05/03/23 07:38 Dose: 1 each Miscellaneous (Fentanyl Patch Remove & Waste) 1 each N/A Q3D [facility] Stop: 05/25/23 22:14 Last Admin: 05/01/23 21:52 Dose: 1 each Miscellaneous (Order Awaiting Action [Varenicline [Tyrvaya] 0.03 Mg/[place], Metered, Non-Aeroso]) 1 each N/A QS [facility] Stop: 05/26/23 00:00 Last Admin: 04/26/23 09:23 Dose: Not Given Miscellaneous (Remove Lidoderm Patch) 1 each N/A HS [facility] Stop: 06/01/23 20:59 Last Admin: 05/02/23 20:45 Dose: 1 each Olanzapine (Olanzapine 2.5 Mg Tab) 2.5 mg PO HS [facility] Stop: 05/26/23 20:59 Last Admin: 05/02/23 20:44 Dose: 2.5 mg Ondansetron HCl (Ondansetron Inj 2 Mg/Ml 2 Ml Vial) 4 mg IV Q6H PRN PRN Reason: Nausea Stop: 05/26/23 13:23 Last Admin: 04/27/23 14:54 Dose: 4 mg Polyethylene Glycol (Polyethylene (Miralax) 17 Gm Pack) 17 gm PO DAILY PRN PRN Reason: Constipation Stop: 06/02/23 05:41 Last Admin: 05/03/23 05:53 Dose: 17 gm Potassium Chloride (Potassium Chloride Crtab 20 Meq Tabcr) 20 meq PO BID [facility] Stop: 05/31/23 08:59 Last Admin: 05/03/23 07:39 Dose: 20 meq Prednisone (Prednisone 20 Mg Tab) 40 mg PO DAILY [facility] Stop: 05/29/23 14:14 Last Admin: 05/03/23 07:40 Dose: 40 mg Tramadol HCl (Tramadol Hcl 50 Mg Tablet) 25 mg PO Q4H PRN PRN Reason: Pain Stop: 05/26/23 00:46 (1) Sepsis Sepsis type: sepsis due to unspecified organism Sepsis acute organ dysfunction status: with acute organ dysfunction Severe sepsis acute organ dysfunction type: acute respiratory failure Acute respiratory failure type: with hypoxia Severe sepsis shock status: without septic shock Qualified Code(s): A41.9 - Sepsis, unspecified organism; R65.20 - Severe sepsis without septic shock; J96.01 - Acute respiratory failure with hypoxia
[2023-05-03] MEDS: LORazepam 0.5 MG TAB PO PRN (22:43)
[2023-05-03] MEDS: ALUMINUM/MAGNESIUM/SIMETH (MAALOX MAX) 30 ML UDC PO STA (23:42)
[2023-05-04 06:46] LABS: Basophils # (auto) 0.01 K/uL (0.00-0.20); Basophils % (auto) 0.1 %; Eosinophils # (auto) 0.09 K/uL (0.00-0.50); Hematocrit (blood only) 25.4 % (37.0-47.0); Hemoglobin 7.8 g/dl (12.0-16.0); Immature Granulocytes # (auto) 0.25 K/uL (0.01-0.20); Immature Granulocytes % (auto) 2.9 %; Lymphocytes # (auto) 0.71 K/uL (1.20-3.40); Lymphocytes % (auto) 8.1 %; Mean Corpuscular Hemoglobin 23.3 pg (25.0-34.0); Mean Corpuscular Hgb Conc 30.7 g/dL (32.0-36.0); Mean Corpuscular Volume 75.8 fL (80.0-100.0); Mean Platelet Volume 10.4 fL (9.4-12.4); Monocytes # (auto) 0.19 K/uL (0.11-0.59); Monocytes % (auto) 2.2 %; Neutrophils % (auto) 85.7 %; Nucleated RBC # (auto) 0.08 K/uL (0.00-0.12); Nucleated RBC % (auto) 0.9 %; Platelet Count 267 K/uL (130-400); RDW Coefficient of Variation 22.4 % (11.5-14.5); RDW Standard Deviation 58.4 fL (36.4-46.3); Red Blood Count 3.35 M/uL (4.20-5.40); White Blood Count 8.75 K/ul (4.8-10.8)
[2023-05-04 07:20] LABS: Ovalocytes 2+; Tear Drop Cells 1+
[2023-05-04 07:27] LABS: Albumin Globulin Ratio 1.3 (0.9-2); Albumin Level 2.7 gm/dl (3.4-5.0); BUN Creatinine Ratio 11.8 (10-20); Bilirubin,Total 0.2 mg/dl (0.2-1.0); Calcium 8.3 mg/dl (8.6-10.3); Creatinine Clr Calc Pharmacy 185.5 ml/min; Est GFR (African American) 146.4 ml/min; Est GFR (Non-African American) 126.3 ml/min; Globulin 2.1 gm/dl (2.5-4.0); Magnesium 1.4 mg/dl (1.7-2.4); Phosphorus 2.4 mg/dl (2.5-4.9); Potassium 4.3 mmol/L (3.5-5.1); Total Protein 4.8 gm/dl (6.0-8.3)
--- NOTE | 2023-05-04 13:30 | Infectious Disease Progress Nt ---
Date of Service May 04, 2023 Assessment & Plan (1) Bacterial infection due to streptococcus, group A: (2) Sepsis: (3) Metastatic disease: (4) SBO (small bowel obstruction): (5) Chronic deep vein thrombosis (DVT): (6) Abdominal pain: (7) Primary cervical cancer with metastasis to other site: (8) Immunocompromised patient: (9) Abnormal chest CT: (10) Cavitary pneumonia: (11) Acute hypoxemic respiratory failure: (12) Cellulitis of left leg: (13) Rash of groin: Plan Anel Whitfield is a 52-year-old woman with metastatic cervical cancer s/p radical hysterectomy and appendectomy 2013, pelvic radiation 2016 (mets to lungs/bone, last treatment: gemcitabine 04/17/23, receives [id number] at clinic in [place], [place]), prior pneumonitis while on Keytruda (last given 07/2022) and has been on chronic prednisone 40 mg daily since 02/16/23, recent admissions 01/2023 and 03/2023 for SBOs, DVT, who presents to [facility] on 04/25/23 after developing abd pain, n/v, found to have possible SBO, acute hypoxemic respiratory failure, LLE erythema c/f SSTI, also with new L inguinal/truncal erythematous rash, and 04/25 Group A Strep bacteremia. Pts GAS may be from SSTI, also with spreading L truncal rash which could be c/f SSTI vs. NSTI, vs. other non-infectious process (?hemorrhage). 04/26 CT chest with extensive bilateral cavitations of unclear etiology; have started IV Bactrim for possible PJP. With GAS bacteremia in 4/4 bottles. Source may be LLE, which was newly erythematous and swollen on 04/25 and resembling cellulitis/SSTI. Also with new truncal/inguinal rash on 04/26. This was initially c/f Shingles given possibly dermatomal location however is now spreading past midline. The rash continues to spread, now throughout her lower abd and flank/back area. This spread could be c/f NSTI and would have low threshold for involvement of surgery. Also consider whether the petechial nature of the rash may reflect underlying hemorrhage (?Gilliam-Turners sign). GAS is a less likely pathogen for endocarditis but would nevertheless favor evaluating for deep-seated infection. Would repeat BCx to confirm clearance. 04/26 TTE without mass or vegetation. PT with port in place and also with known chronic nonocclusive RLE thrombus. With acute hypoxemic respiratory failure and CT A/P showing patchy consolidations with cavitations in lower lung, CXR with extensive patchy cavitary consolidations. Patient with a history of pneumonitis from Keytruda and with known lung mets. She is not on home O2 but is now hypoxemic. She has been on prednisone 40 mg daily since 01/2023, without PJP ppx. Would be highly concerned about PJP although difficult to discern which of her lung findings are new (prior to starting steroids, her 02/16 CT also with multiple irregular nodules, GGOs, central cavitation). Would be concerned for infectious component of her imaging findings. Especially with her chronic prednisone use, now with wide ddx including PJP, endemic fungi, Aspergillus, and other fungal pna. Will send PJP PCR in sputum, BDG, and also Aspergillus Ag and Histo UrAg. 04/26 serum LDH normal at 169. Will also send for bacterial SpCx, fungal SpCx, and AFB sputum (to evaluate for NTM/MAC). Can continue pip-tazo which will cover GAS bacteremia as well as possible bacterial HAP. Will change vancomycin to linezolid for anti-toxin effect given spreading truncal/inguinal rash, though will monitor blood counts carefully, and note that pt also on other serotonergic meds. With leukopenia (~2 weeks after gemcitabine). If this is persistent/worsening would consider G-CSF. Reasonable to continue acyclovir for now, though pts abd/inguinal rash thus far without vesicles and Shingles less likely at this time. Given the pts persistent respiratory failure, and 04/26 CT chest with worsening extensive bilateral cavitations and GGOs, will start treatment-dose IV Bactrim for PJP, as well as voriconazole + caspofungin for possible pulmonary Aspergillus/mold infection, especially while PJP/fungal studies are pending. (Note that posaconazole and isavuconazole are not on formulary at [facility]; if further clinical worsening or concern for Histo or Mucor, would require escalation to Ambisome). 04/26 Beta D Glucan 219 + 04/25 RVP negative Urine histo negative QFT gold negative Aspergillus Antigen Negative, Cryptococcal antigen negative 04/30 Bronch , BAL cx No Growth, AFB smear neg, CX NG, Fungal smear/Cx no growth PJP PC 04/26 PENDING, 04/30 PENDING ABX Bactrim 04/28 Caspo 04/28 Voriconazole 04/28- Piptazo 04/26- ID Problem List: 1.Group A Strep bacteremia 2.Immunosuppression due to chronic steroid use and chemotherapy for cervical cancer 3. LLE SSTI 4.L-sided truncal/inguinal rash, possible SSTI/NSTI, possible Shingles 5.Chronic steroid use, not on PJP prophylaxis 6.Acute hypoxemic respiratory failure, [id number]-to-[id number] pulmonary GGOs and cavitary lung lesions, cavitary pneumonia 7.History of pneumonitis from Keytruda 8.Leukopenia 9. Positive Beta D Glucan Recommendations: - Narrow her IV abx to Unasyn from zosyn, this would cover for streptococcus bacteremia as well as strep related lung cavity, upon discharge would change to Augmentin 875/125 1 po bid, plan for a total 4 week therapy in setting of culture negative cavitary lesion, strep bacteremia through 05/24/23 - C/W IV Bactrim, plan to treat for 21 days (Started 04/27-05/17), on discharge can change to Bactrim DS 2 tabs po TID through 05/17/23 - DC Caspofungin -Change Voriconazole to 200mg po BID and plan for 6 week therapy (pending findings) or until seen by pulm or ID and able determine best course of therapy base on cultures and labs. End of therapy 06/09/23 (tentative date) -She will need monitoring of her voriconazole levels, LFTs, Chemistries, CBC while on therapy at least once every 1-2 weeks. If she continues on Voriconazole would recommend EKG checks to ensure her QTc does not change -Strongly recommend she sees ID and Pulmonary in follow up in next 2 weeks -Recommend repeat CT chest within next 2 weeks -IDPharmacy to review medications tomorrow prior to discharge. I spoke with Pharmacy, Primary team and patient today. If patient is still here Sunday will follow Lorrie Monte MD Infectious Diseases [facility] Connect direct line: [phone] Admission and Anticipated Discharge Date Admission Date: April 25, 2023 Subjective Subsequent visit was provided via telemedicine using two-way real-time interactive telecommunication between the patient and the telemedicine provider. For the duration of the visit, the provider was performing the assessment from a different facility than the patient. This includesuse of bluetooth stethoscope forauscultationperformed by the telepresenter that the telemedicine provider can hear if described in the physical exam. Liability Claims Examiner contact information: Please call [facility] Call Center [phone]. (Phone Number For Physician Use Only) After establishing a telemedicine visit, patient was: Patient was verified with two unique identifiers, Patient/authorized rep acknowledged consent and understanding and Gave permission to continue telehealth session Time Spent with Patient: Subsequent => 35 min Physical Exam Physical Exam: NAD 4L Oxygen, post bronch coughing LLE swelling erythema Rash on abdomen resolved Results & Data Vital Signs (Past 12 Hours) Vital Signs Temp Pulse Pulse Pulse Resp BP Pulse Ox 05/04/23 11:56 36.6 C 126 H 20 123/82 97 05/04/23 07:50 36.6 C 113 H 20 132/76 95 05/04/23 07:30 05/04/23 03:00 36.4 C L 96 H 18 120/71 93 05/04/23 02:00 105 H O2 Del Method O2 Flow Rate 05/04/23 11:56 Oxymask 4 05/04/23 07:50 Nasal Cannula 4 05/04/23 07:30 Nasal Cannula 4 05/04/23 03:00 Nasal Cannula 4 05/04/23 02:00 (2) Sepsis Acute respiratory failure type: with hypoxia Sepsis acute organ dysfunction status: with acute organ dysfunction Sepsis type: sepsis due to unspecified organism Severe sepsis acute organ dysfunction type: acute respiratory failure Severe sepsis shock status: without septic shock Qualified Code(s): A41.9 - Sepsis, unspecified organism; R65.20 - Severe sepsis without septic shock; J96.01 - Acute respiratory failure with hypoxia (3) Metastatic disease Area of secondary neoplastic involvement: unspecified site Qualified Code(s): C79.9 - Secondary malignant neoplasm of unspecified site
--- NOTE | 2023-05-04 13:48 | Hospitalist Progress Note ---
Date of Service May 04, 2023 Assessment & Plan (1) Sepsis: (2) Bacteremia due to Gram-positive bacteria: (3) Immunocompromised patient: Plan Ms. Whitfield is a 52 year old female with PMH stage IV cervical cancer with metastasis to lungs, pelvis & vertebrae, chronic thrombosis right femoral vein, BLE thrombectomy and stenting on chronic Lovenox and Pletal, right ureteral stricture, history of adjustment disorder with anxiety, pelvic radiation 2016 (mets to lungs/bone, last treatment: gemcitabine 04/17/23, receives [id number] at clinic in [place], [place]), prior pneumonitis while on Keytruda (last given 07/2022), and chronic prednisone 40 mg daily since 02/16/23 not on PJP ppx, presented with abdominal pain and found to have small bowel obstruction on CT imaging with transition point in RLQ. Acute on chronic small bowel obstructions CT ABD on admission shows a small bowel obstruction with transition point in RLQ Patient initially admitted on 04/25 for management of SBO; however, course complicated by hypoxia, tachycardia, and tenuous hemodynamics. Patient transferred to ICU for close hemodynamic monitoring. Blood culture on admission showed group A beta strep; sensitive to penicillin. Likely source was thought left lower leg cellulitis. Recent admission managed conservatively, follows OP Gen Surgery on 04/16 regarding symptoms and encouraged to hydrate, trial of Bentyl No more symptoms or signs of SBO She has been tolerating diet and has being having regular bowel movement She has been tolerating diet and does not have any symptoms of SBO Appreciate surgery input and recommendation for venting PEG tube placement The patient has been agreeable to it-surgery is going to discuss this with the ID specialist Proposed surgery with venting PEG tube placement will be done as an outpatient and the patient is agreeable Bowel is moved this morning but she complains today of some swelling of the upper abdomen Chest x-ray done this morning showed possible small bowel obstruction-will observe for now Showing no signs of intestinal obstruction and has been tolerating diet with minimal nausea Has been getting physical therapy and doing pretty well Sepsis, POA 2/2 GAS bacteremia POA, Left lower leg cellulitis Immunocompromised Blood Cultures 04/25 07/04 + GAS UA noninfectious appearance Source likely left leg cellulitis MRSA negative ECHO without vegetations/mass Infectious Disease on consult, reviewed following recommendations -GAS less likely pathogen for endocarditis, ECHO completed w/o visible vegetations -Repeat blood culture negative so far -Vancomycin transitioned to Linezolid for antitoxin effect iso GAS -Continue Zosyn for GAS bacteremia and HAP coverage iso resp failure -Monitor clinical improvement, consider antifungal coverage -Zyvox has been discontinued with continuation of antifungals as mentioned below Hydrocortisone changed over to prednisone. Follow-up on infectious disease recommendation. Course further complicated by the acute hypoxemic respiratory failure, as well as increased patchy consolidations and cavitations of bilateral lower lungs. Patient has metastatic lung disease as well as prior pembrolizumab pneumonitis, Remains afebrile on current regimen of antibiotic antifungal White blood cell count is normal but remains tachycardic Will follow ID recommendation on antibiotic and antifungal Discussed with the ID specialist and she will have a follow-up with the patient tomorrow morning to have oral antibiotics regimen Advised to have a repeat CT of the chest in about 2 weeks with an appointment with pulmonology and ID specialist in around 2 to 3 weeks timeframe Will have ID evaluation today and recommendations for possible oral antibiotics and antifungal Will need follow-up with pulmonary and ID as an outpatient Current infectious work up ordered thus far: BAL Cryptococcal antigen not detected TB test QFT negative Sputum Gram stain negative and culture is negative too Fungal smear-negative. Culture is pending Repeat blood cultures negative Histoplasma galactomannan antibody pending, Legionella source/culture pending, urine Legionella antibody pending Pneumocystis J PCR-pending Respiratory virus culture rapid-pending 04/26/2023 Blood Culture 07/04 GAS 04/27/2023 Blood Culture NGTD Acute hypoxic respiratory failure, multifactorial CT chest from 04/27 shows extensive bilateral mixed interstitial and alveolar opacities with irregular consolidative, centrally cavitary foci. Worsened compared to previous CT. Possible differentials include PJP pneumonia, pneumonitis from Keytruda, multifocal pneumonia. On full dose bactrim per ID, will deescalate to ppx dose contingent upon return of PJP PCR Patient also on Capsofungin and voriconazole for possible fungal pneumonia. Aspergillus antigen and histo urine antigen pending. Status post bronchoscopy and bronchoalveolar lavage-relevant tests have been pending Will continue current antibiotics and antifungal Remains stable without any further improvement Will try Hycodan for hacking cough Noted to have a positive fluid balance of 20 L Will give 40 of Lasix IV with 10 mg of potassium IV Has had profuse diarrhea since yesterday following a dose of Lasix and the patient is feeling much better Will give another dose of Lasix of 40 mg IV today Check PRP-at around 3 PM potassium was normal Repeat chest x-ray did not show any change in her bilateral multifocal pneumonia Will require outpatient pulmonary evaluation Acute anemia, likely 2/2 ongoing sepsis, dilutional component Anemia of chronic disease Status post 2 units of packed RBC. No signs or symptoms of bleeding. Hemoglobin stable at 9.1 as of 04/30/2023 Hemoglobin is 8.2 seems to be stable Hemoglobin slightly dropped to 7.8 as of 05/04/2023 Hypercoagulability 2/2 metastatic disease Chronic R fem thrombosis, BLE thrombectomy Acute on Chronic Left lower extremity Lymphedema Chronic Anticoagulation Doppler with chronic nonocclusive thrombus RLE extent "improved from prior" per read, correction from prior note NO left LE dvt Will change heparin to Lovenox as anti-Xa heparin level is persistently low. Patient is at 100 mg Lovenox twice daily. She reports that it was started when her weight was higher. Discussed with patient and regarding Lovenox 50 mg twice a day based on her weight presently. She is agreeable with that. Continue cilostazol 50mg BID, monitor platelets on CBC Follow-up on anti-Xa level 4 hours after Lovenox dose(3rd dose) to ensure it is within therapeutic range. Dose might be needed to be changed depending on anti-Xa level. Lovenox has been restarted Primary cervical cancer with metastatic disease Know mets to lungs, pelvis, vertebra CT scan with cavitary lesions, increased since imaging obtained 03/28 Last treatment: 04/17~, received gemcitabine q2 weeks in [place], [place] clinic Continue fentanyl patch, duloxetine 60mg, Gabapentin 200mg BID Anticancer medications are on hold Of her to have a primary oncologist locally but she decided not to have any new oncologist that she will have follow-up with her oncologist in [place] Sinus Tachycardia Prolonged QTc Reports baseline HR in low 100s, ranging 120-150s on admission Likely multifactorial, hypoxia/sepsis Continue telemetry and hemodynamic monitoring in ICU QTc improved 04/27, 446 from 500 Likely secondary to use of bronchodilator Complicated by ongoing infection without any fever and or chills Will advised to drink more fluid Remains tachycardic Hypokalemia Hypomagnesemia -Repleted KARIN *, resolved -Cr up to 1.3, now downtrending with IVF -Continues to be on IV fluids for now Severe protein calorie malnutrition -BMI 17.81, iso chronic illness/metastatic disease 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, manager program management when able to take po Diet: Full liquid diet Analgesia: home pain regimen, CTM Sedation: Not required at this time DVT: Lovenox Ulcer PPX IV PPI Deescalate abx per ID recommendations PT/OT when tolerated DVT prophylaxis Lovenox CODE STATUSfull code. Patient and open to rediscuss CODE STATUS depending on patient's clinical status. For the time beingshe is okay with a trial of CPR and intubation if it is for short-term only. Dispositionpatient hospitalized with multiple issues outlined above. PT OT ordered. Likely to be discharged in a day or 2 Please note the above document was generated using voice recognition software. It may contain grammatical, syntax or spelling errors. Any formal questions or concerns about the content, text or information contained within the body of this dictation should be directly addressed to the provider for clarification Admission and Anticipated Discharge Date Admission Date: April 25, 2023 Subjective 04/30/2023 The patient was seen and examined in telemetry unit in presence of the family members She has been complaining of shortness of breath without chest tightness and/or wheezing She is status post bronchoscopy and bronchial lavage and complaining more cough Denies any chest pain, palpitation,, abdominal pain, nausea and or vomiting 05/01/2023 The patient was seen and examined in telemetry unit She has been coughing a lot Shortness of breath remains stable and still being tachycardic at 113/min She denies any fever and or chills Has been tolerating diet and denies any nausea or vomiting today 05/02/2023 The patient was seen and examined in telemetry unit in presence of the She has been feeling a little better Her breathing seems to better and cough is improved Minimal pain at the right lower anterior chest wall likely secondary to cough Denies any abdominal symptom No fever and or chills but remains tachycardic 05/03/2023 The patient was seen and examined in telemetry unit She has been a little better but is still requiring 4 L of oxygen via nasal cannula to maintain saturation Cough is improved Complained of some abdominal distention without nausea or vomiting Left leg swelling persist 05/04/2023 The patient was seen and examined in telemetry unit She has been feeling much better today She has had 2 bowel movements following MiraLAX and milk of magnesia Denies any abdominal distention Cough is decreased No fever and or chills Still requiring 4 L of oxygen via nasal cannula to maintain saturation Has had physical therapy and did well Review of Systems Review of Systems: All systems reviewed and are unremarkable except as noted below Physical Exam Physical Exam: Lying in bed with minimal shortness of breath at rest Constitutional: well developed, well nourished, + ill appearing and average body habitus Eyes: PERRL, conjunctivae normal, anicteric sclerae ENMT: external ear and nose normal, oropharynx normal Neck: trachea midline, no thyromegaly Respiratory: + respiratory distress (Mild to moderate respiratory distress) Auscultation: + diminished lung sounds and + crackles (Minimal crackles bibasally) Cardiovascular: Rate/Rhythm: regular rate, regular rhythm and + tachycardic Heart Sounds: normal S1 and normal S2; no murmur Extremities: + edema (Trace on right side and lymphedema with edema on the left) Gastrointestinal (Abdomen): Inspection/Auscultation: normal bowel sounds; abdomen not distended Percussion/Palpation: abdomen soft; abdomen nontender Musculoskeletal: Extremities: + lower extremity abnormal to inspection (Lymphedema and edema involving the left lower extremity) Left No acute arthritis involving any of the joint Neurologic: normal touch/pain/proprioception and moves all extremities; no focal motor deficits Lymphatic: no cervical or axillary lymphadenopathy Results & Data Results & Data Vital Signs (Past 12 Hours) Vital Signs Temp Pulse Pulse Pulse Resp BP Pulse Ox 05/04/23 11:56 36.6 C 126 H 20 123/82 97 05/04/23 07:50 36.6 C 113 H 20 132/76 95 05/04/23 07:30 05/04/23 03:00 36.4 C L 96 H 18 120/71 93 05/04/23 02:00 105 H O2 Del Method O2 Flow Rate 05/04/23 11:56 Oxymask 4 05/04/23 07:50 Nasal Cannula 4 05/04/23 07:30 Nasal Cannula 4 05/04/23 03:00 Nasal Cannula 4 05/04/23 02:00 Laboratory Results Short CBC 05/04/23 Range/Units 06:12 WBC 8.75 (4.8-10.8) K/ul Hgb 7.8 L (12.0-16.0) g/dl Hct 25.4 L (37.0-47.0) % Plt Count 267 (130-400) K/uL BMP 05/04/23 06:12 Sodium 133 L Potassium 4.3 Chloride 101 Carbon Dioxide 26 BUN 4 L Creatinine 0.34 L Glucose 79 Calcium 8.3 L Liver Function 05/04/23 Range/Units 06:12 Total Bilirubin 0.2 (0.2-1.0) mg/dl AST 7 L (13-39) U/L ALT 6 L (7-52) U/L Alkaline Phosphatase 97 (34-104) U/L Albumin 2.7 L (3.4-5.0) gm/dl Medications Administered Current Inpatient Medications Artificial Tears (Artificial Tears) 1 drops OP QID PRN PRN Reason: Dryness Stop: 05/26/23 12:26 Benzonatate (Benzonatate 100 Mg Capsule) 100 mg PO TID PRN PRN Reason: Cough Stop: 05/29/23 09:27 Last Admin: 05/04/23 09:21 Dose: 100 mg Cilostazol (Cilostazol 100 Mg Tab) 50 mg PO BID SAE Stop: 05/26/23 08:59 Last Admin: 05/03/23 21:50 Dose: 50 mg Duloxetine HCl (Duloxetine Hcl 60 Mg Cap) 60 mg PO QAM SAE Stop: 05/26/23 08:59 Last Admin: 05/04/23 09:21 Dose: 60 mg Enoxaparin Sodium (Enoxaparin Inj 60 Mg/0.6 Ml Syr) 60 mg SQ Q12H SAE Stop: 06/01/23 08:59 Last Admin: 05/04/23 09:23 Dose: 60 mg Fentanyl (Fentanyl 12 Mcg/Hr Tdsy) 12 mcg TD Q72H SAE Stop: 05/09/23 22:14 Last Admin: 05/01/23 21:50 Dose: 12 mcg Gabapentin (Gabapentin 100 Mg Cap) 200 mg PO BID SAE Stop: 05/26/23 08:59 Last Admin: 05/04/23 09:23 Dose: 200 mg Hydrocodone Bit/Homatropine Methylb (Hydrocodone/Homatropine Syrup 5mg/1.5mg 5ml Udp) 5 ml PO Q6H PRN PRN Reason: Cough Stop: 05/15/23 11:00 Last Admin: 05/03/23 21:49 Dose: 5 ml Hydromorphone HCl (Hydromorphone Inj 0.5 Mg/0.5 Ml Syr) 0.5 mg IV Q2HWA PRN PRN Reason: Pain Stop: 05/10/23 15:31 Last Admin: 05/04/23 09:34 Dose: 0.5 mg Promethazine HCl 6.25 mg/ (Sodium Chloride) 50.25 mls @ 201 mls/hr IV Q6H PRN PRN Reason: Nausea And Vomiting Stop: 05/25/23 21:39 Last Infusion: 04/26/23 01:35 Dose: Infused Piperacillin Sod/Tazobactam (Sod 4.5 gm/ Dextrose) 100 mls @ 25 mls/hr IV Q8H [facility]; Protocol Stop: 05/10/23 14:29 Last Infusion: 05/04/23 13:07 Dose: Infused Pantoprazole Sodium 40 mg/ (Syringe) 10 mls @ 5 mls/min IV DAILY@1100 [facility] Stop: 05/26/23 10:59 Last Admin: 05/04/23 13:04 Dose: 5 mls/min Caspofungin 50 mg/ Sodium (Chloride) 260 mls @ 250 mls/hr IV Q24H [facility]; Protocol Stop: 05/05/23 18:29 Last Infusion: 05/03/23 18:36 Dose: Infused Linezolid (Zyvox) 600 mg in 300 mls @ 300 mls/hr IV Q12H [facility] Stop: 05/12/23 13:59 Last Infusion: 05/04/23 03:34 Dose: Infused Trimethoprim/Sulfamethoxazole (350 mg/ Dextrose) 521.875 mls @ 333.333 mls/hr IV Q8H [facility]; Protocol Stop: 05/09/23 14:29 Last Infusion: 05/04/23 13:08 Dose: Infused Voriconazole 280 mg/ Sodium (Chloride) 100 mls @ 50 mls/hr IV Q12H [facility] Stop: 05/09/23 14:59 Last Infusion: 05/04/23 13:08 Dose: Infused Lidocaine (Lidocaine 5% 1 Patch) 1 patch TD QAM [facility] Stop: 05/25/23 23:29 Last Admin: 05/04/23 09:22 Dose: 1 patch Lorazepam (Lorazepam 0.5 Mg Tab) 0.5 mg PO Q6H PRN PRN Reason: Anxiety Stop: 06/02/23 21:48 Last Admin: 05/03/23 22:43 Dose: 0.5 mg Magnesium Oxide (Magnesium Oxide 400 Mg Tab) 400 mg PO BID [facility] Stop: 05/31/23 08:59 Last Admin: 05/04/23 09:22 Dose: 400 mg Melatonin (Melatonin 3 Mg Tab) 3 mg PO HS [facility] Stop: 05/26/23 20:59 Miscellaneous (Check Fentanyl Patch Placement) 1 each N/A QS [facility] Stop: 05/26/23 00:00 Last Admin: 05/04/23 09:06 Dose: 1 each Miscellaneous (Fentanyl Patch Remove & Waste) 1 each N/A Q3D [facility] Stop: 05/25/23 22:14 Last Admin: 05/01/23 21:52 Dose: 1 each Miscellaneous (Remove Lidoderm Patch) 1 each N/A HS [facility] Stop: 06/01/23 20:59 Last Admin: 05/03/23 21:54 Dose: 1 each Olanzapine (Olanzapine 2.5 Mg Tab) 2.5 mg PO [facility] Stop: 05/26/23 20:59 Last Admin: 05/03/23 21:51 Dose: 2.5 mg Ondansetron HCl (Ondansetron Inj 2 Mg/Ml 2 Ml Vial) 4 mg IV Q6H PRN PRN Reason: Nausea Stop: 05/26/23 13:23 Last Admin: 05/04/23 07:34 Dose: 4 mg Polyethylene Glycol (Polyethylene (Miralax) 17 Gm Pack) 17 gm PO DAILY PRN PRN Reason: Constipation Stop: 06/02/23 05:41 Last Admin: 05/03/23 05:53 Dose: 17 gm Potassium Chloride (Potassium Chloride Crtab 20 Meq Tabcr) 20 meq PO BID [facility] Stop: 05/31/23 08:59 Last Admin: 05/04/23 09:22 Dose: 20 meq Prednisone (Prednisone 20 Mg Tab) 40 mg PO DAILY [facility] Stop: 05/29/23 14:14 Last Admin: 05/04/23 09:23 Dose: 40 mg Tramadol HCl (Tramadol Hcl 50 Mg Tablet) 25 mg PO Q4H PRN PRN Reason: Pain Stop: 05/26/23 00:46 (1) Sepsis Sepsis type: sepsis due to unspecified organism Sepsis acute organ dysfunction status: with acute organ dysfunction Severe sepsis acute organ dysfunction type: acute respiratory failure Acute respiratory failure type: with hypoxia Severe sepsis shock status: without septic shock Qualified Code(s): A41.9 - Sepsis, unspecified organism; R65.20 - Severe sepsis without septic shock; J96.01 - Acute respiratory failure with hypoxia
[2023-05-05 04:52] LABS: Pneumocystis jirovecii PCRQual DETECTED; Pneumocystis jirovecii Source BRONCH LAV
[2023-05-05 09:30] LABS: Basophils # (auto) 0.02 K/uL (0.00-0.20); Basophils % (auto) 0.2 %; Eosinophils % (auto) 0.9 %; Hematocrit (blood only) 29.9 % (37.0-47.0); Hemoglobin 9.1 g/dl (12.0-16.0); Immature Granulocytes # (auto) 0.34 K/uL (0.01-0.20); Immature Granulocytes % (auto) 3.2 %; Lymphocytes # (auto) 0.86 K/uL (1.20-3.40); Mean Corpuscular Hemoglobin 23.4 pg (25.0-34.0); Mean Corpuscular Hgb Conc 30.4 g/dL (32.0-36.0); Mean Corpuscular Volume 76.9 fL (80.0-100.0); Monocytes # (auto) 0.36 K/uL (0.11-0.59); Monocytes % (auto) 3.3 %; Neutrophils % (auto) 84.4 %; Nucleated RBC % (auto) 1.9 %; Platelet Count 442 K/uL (130-400); RDW Coefficient of Variation 22.5 % (11.5-14.5); RDW Standard Deviation 60.7 fL (36.4-46.3); Red Blood Count 3.89 M/uL (4.20-5.40); White Blood Count 10.78 K/ul (4.8-10.8)
[2023-05-05 09:44] LABS: BUN Creatinine Ratio 11.4 (10-20); Calcium 8.8 mg/dl (8.6-10.3); Est GFR (African American) 134.5 ml/min; Est GFR (Non-African American) 116.1 ml/min; Magnesium 1.3 mg/dl (1.7-2.4); Phosphorus 2.3 mg/dl (2.5-4.9); Potassium 4.2 mmol/L (3.5-5.1)
[2023-05-05 09:50] LABS: Anisocytosis Present; Ovalocytes 2+; Polychromasia 1+; Tear Drop Cells 1+
[2023-05-05] MEDS ORDERED: SODIUM PHOSPHATE 3 MMOL/1 ML 5 ML VIAL IV ONE (11:24)
[2023-05-05] MEDS: MAGNESIUM SULFATE / D5W 1 GM/100 ML BAG IV SCH (12:38)
[2023-05-05] MEDS: SODIUM PHOSPHATE 20 MMOL in SODIUM CHLORIDE 0.9% 500 ML IV ONE (12:43)
--- NOTE | 2023-05-05 12:56 | Hospitalist Progress Note ---
Date of Service May 05, 2023 Assessment & Plan (1) Sepsis: (2) Bacteremia due to Gram-positive bacteria: (3) Immunocompromised patient: Plan Ms. Whitfield is a 52 year old female with PMH stage IV cervical cancer with metastasis to lungs, pelvis & vertebrae, chronic thrombosis right femoral vein, BLE thrombectomy and stenting on chronic Lovenox and Pletal, right ureteral stricture, history of adjustment disorder with anxiety, pelvic radiation 2016 (mets to lungs/bone, last treatment: gemcitabine 04/17/23, receives [id number] at clinic in [place]), prior pneumonitis while on Keytruda (last given 07/2022), and chronic prednisone 40 mg daily since 02/16/23 not on PJP ppx, presented with abdominal pain and found to have small bowel obstruction on CT imaging with transition point in RLQ. Acute on chronic small bowel obstructions CT ABD on admission shows a small bowel obstruction with transition point in RLQ Patient initially admitted on 04/25 for management of SBO; however, course complicated by hypoxia, tachycardia, and tenuous hemodynamics. Patient transferred to ICU for close hemodynamic monitoring. Blood culture on admission showed group A beta strep; sensitive to penicillin. Likely source was thought left lower leg cellulitis. Recent admission managed conservatively, follows OP Gen Surgery on 04/16 regarding symptoms and encouraged to hydrate, trial of Bentyl No more symptoms or signs of SBO She has been tolerating diet and has being having regular bowel movement She has been tolerating diet and does not have any symptoms of SBO Appreciate surgery input and recommendation for venting PEG tube placement The patient has been agreeable to it-surgery is going to discuss this with the ID specialist Proposed surgery with venting PEG tube placement will be done as an outpatient and the patient is agreeable Bowel is moved this morning but she complains today of some swelling of the upper abdomen Chest x-ray done this morning showed possible small bowel obstruction-will observe for now Showing no signs of intestinal obstruction and has been tolerating diet with minimal nausea Has been getting physical therapy and doing pretty well Has been tolerating diet and moving bowels Sepsis, POA 2/2 GAS bacteremia POA, Left lower leg cellulitis Immunocompromised Blood Cultures 04/25 4/4 + GAS UA noninfectious appearance Source likely left leg cellulitis MRSA negative ECHO without vegetations/mass Infectious Disease on consult, reviewed following recommendations -GAS less likely pathogen for endocarditis, ECHO completed w/o visible vegetations -Repeat blood culture negative so far -Vancomycin transitioned to Linezolid for antitoxin effect iso GAS -Continue Zosyn for GAS bacteremia and HAP coverage iso resp failure -Monitor clinical improvement, consider antifungal coverage -Zyvox has been discontinued with continuation of antifungals as mentioned below Hydrocortisone changed over to prednisone. Follow-up on infectious disease recommendation. Course further complicated by the acute hypoxemic respiratory failure, as well as increased patchy consolidations and cavitations of bilateral lower lungs. Patient has metastatic lung disease as well as prior pembrolizumab pneumonitis, Remains afebrile on current regimen of antibiotic antifungal White blood cell count is normal but remains tachycardic Will follow ID recommendation on antibiotic and antifungal Discussed with the ID specialist and she will have a follow-up with the patient tomorrow morning to have oral antibiotics regimen Advised to have a repeat CT of the chest in about 2 weeks with an appointment with pulmonology and ID specialist in around 2 to 3 weeks timeframe Will have ID evaluation today and recommendations for possible oral antibiotics and antifungal Appreciate ID recommendation to start oral antibiotics and antifungal on discharge and recommendations to have follow-up with ID specialist and pulmonology as an outpatient with a repeat CAT scan Current infectious work up ordered thus far: BAL Cryptococcal antigen not detected TB test QFT negative Sputum Gram stain negative and culture is negative too Fungal smear-negative. Culture is pending Repeat blood cultures negative Histoplasma galactomannan antibody pending, Legionella source/culture pending, urine Legionella antibody pending Pneumocystis J PCR-pending Respiratory virus culture rapid-pending 04/26/2023 Blood Culture 07/04 GAS 04/27/2023 Blood Culture NGTD Acute hypoxic respiratory failure, multifactorial CT chest from 04/27 shows extensive bilateral mixed interstitial and alveolar opacities with irregular consolidative, centrally cavitary foci. Worsened compared to previous CT. Possible differentials include PJP pneumonia, pneumonitis from Keytruda, multifocal pneumonia. On full dose bactrim per ID, will deescalate to ppx dose contingent upon return of PJP PCR Patient also on Capsofungin and voriconazole for possible fungal pneumonia. Aspergillus antigen and histo urine antigen pending. Status post bronchoscopy and bronchoalveolar lavage-relevant tests have been pending Will continue current antibiotics and antifungal Remains stable without any further improvement Will try Hycodan for hacking cough Noted to have a positive fluid balance of 20 L Will give 40 of Lasix IV with 10 mg of potassium IV Has had profuse diarrhea since yesterday following a dose of Lasix and the p atient is feeling much better Will give another dose of Lasix of 40 mg IV today Check PRP-at around 3 PM potassium was normal Repeat chest x-ray did not show any change in her bilateral multifocal pn eumonia Will require outpatient pulmonary evaluation Will need 4 L of oxygen via nasal cannula Acute anemia, likely 2/2 ongoing sepsis, dilutional component Anemia of chronic disease Status post 2 units of packed RBC. No signs or symptoms of bleeding. Hemoglobin stable at 9.1 as of 04/30/2023 Hemoglobin is 8.2 seems to be stable Hemoglobin slightly dropped to 7.8 as of 05/04/2023 Hypercoagulability 2/2 metastatic disease Chronic R fem thrombosis, BLE thrombectomy Acute on Chronic Left lower extremity Lymphedema Chronic Anticoagulation Doppler with chronic nonocclusive thrombus RLE extent "improved from prior" per read, correction from prior note NO left LE dvt Will change heparin to Lovenox as anti-Xa heparin level is persistently low. Patient is at 100 mg Lovenox twice daily. She reports that it was started when her weight was higher. Discussed with patient and regarding Lovenox 50 mg twice a day based on her weight presently. She is agreeable with that. Continue cilostazol 50mg BID, monitor platelets on CBC Follow-up on anti-Xa level 4 hours after Lovenox dose(3rd dose) to ensure it is within therapeutic range. Dose might be needed to be changed depending on anti-Xa level. Lovenox has been restarted-will be continued on discharge Primary cervical cancer with metastatic disease Know mets to lungs, pelvis, vertebra CT scan with cavitary lesions, increased since imaging obtained 03/28 Last treatment: 04/17~, received gemcitabine q2 weeks in [place] clinic Continue fentanyl patch, duloxetine 60mg, Gabapentin 200mg BID Anticancer medications are on hold Of her to have a primary oncologist locally but she decided not to have any new oncologist that she will have follow-up with her oncologist in [place] Sinus Tachycardia Prolonged QTc Reports baseline HR in low 100s, ranging 120-150s on admission Likely multifactorial, hypoxia/sepsis Continue telemetry and hemodynamic monitoring in ICU QTc improved 01/26, 446 from 500 Likely secondary to use of bronchodilator Complicated by ongoing infection without any fever and or chills Will advised to drink more fluid Remains tachycardic-advised to drink more fluid Hypokalemia Hypomagnesemia -Repleted KARIN *, resolved -Cr up to 1.3, now downtrending with IVF -Continues to be on IV fluids for now Severe protein calorie malnutrition -BMI 17.81, iso chronic illness/metastatic disease 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, 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 Patient and open to rediscuss CODE STATUS depending on patient's clinical status. For the time beingshe is okay with a trial of CPR and intubation if it is for short-term only. Dispositionpatient hospitalized with multiple issues outlined above. PT OT ordered. Likely to be discharged in a day or 2 Please note the above document was generated using voice recognition software. It may contain grammatical, syntax or spelling errors. Any formal questions or concerns about the content, text or information contained within the body of this dictation should be directly addressed to the provider for clarification Admission and Anticipated Discharge Date Admission Date: April 25, 2023 Subjective 04/30/2023 The patient was seen and examined in telemetry unit in presence of the family members She has been complaining of shortness of breath without chest tightness and/or wheezing She is status post bronchoscopy and bronchial lavage and complaining more cough Denies any chest pain, palpitation,, abdominal pain, nausea and or vomiting 05/01/2023 The patient was seen and examined in telemetry unit She has been coughing a lot Shortness of breath remains stable and still being tachycardic at 113/min She denies any fever and or chills Has been tolerating diet and denies any nausea or vomiting today 05/02/2023 The patient was seen and examined in telemetry unit in presence of the She has been feeling a little better Her breathing seems to better and cough is improved Minimal pain at the right lower anterior chest wall likely secondary to cough Denies any abdominal symptom No fever and or chills but remains tachycardic 05/03/2023 The patient was seen and examined in telemetry unit She has been a little better but is still requiring 4 L of oxygen via nasal cannula to maintain saturation Cough is improved Complained of some abdominal distention without nausea or vomiting Left leg swelling persist 05/04/2023 The patient was seen and examined in telemetry unit She has been feeling much better today She has had 2 bowel movements following MiraLAX and milk of magnesia Denies any abdominal distention Cough is decreased No fever and or chills Still requiring 4 L of oxygen via nasal cannula to maintain saturation Has had physical therapy and did well 05/05/2023 The patient was seen and examined in telemetry She has been stable and feeling a little better She has had physical therapy and did pretty well with it Abdomen slightly bloated but has been tolerating diet and moving bowels No fever and or chills, no increasing shortness of Review of Systems Review of Systems: All systems reviewed and are unremarkable except as noted below Physical Exam Physical Exam: Lying in bed with minimal shortness of breath at rest Constitutional: well developed, well nourished, + ill appearing and average body habitus Eyes: PERRL, conjunctivae normal, anicteric sclerae ENMT: external ear and nose normal, oropharynx normal Neck: trachea midline, no thyromegaly Respiratory: + respiratory distress (Mild to moderate respiratory distress) Auscultation: + diminished lung sounds and + crackles (Minimal crackles bibasally) Cardiovascular: Rate/Rhythm: regular rate, regular rhythm and + tachycardic Heart Sounds: normal S1 and normal S2; no murmur Extremities: + edema (Trace on right side and lymphedema with edema on the left) Gastrointestinal (Abdomen): Inspection/Auscultation: normal bowel sounds; abdomen not distended Percussion/Palpation: abdomen soft; abdomen nontender Musculoskeletal: Extremities: + lower extremity abnormal to inspection (Lymphedema and edema involving the left lower extremity) Left Neurologic: normal touch/pain/proprioception and moves all extremities; no focal motor deficits Lymphatic: no cervical or axillary lymphadenopathy Results & Data Results & Data Vital Signs (Past 12 Hours) Vital Signs Temp Pulse Pulse Pulse Resp BP Pulse Ox 05/05/23 11:47 36.5 C 128 H 18 111/70 90 05/05/23 10:00 64 05/05/23 07:27 36.5 C 103 H 18 109/71 94 02/03/24 03:50 36.4 C L 108 H 18 114/67 95 05/05/23 02:00 05/05/23 02:00 118 H Pulse Ox O2 Del Method O2 Del Method O2 Flow Rate O2 Flow Rate 05/05/23 11:47 Nasal Cannula 4 05/05/23 10:00 05/05/23 07:27 Nasal Cannula 4 05/05/23 03:50 Nasal Cannula 4 05/05/23 02:00 97 Nasal Cannula 4 05/05/23 02:00 Laboratory Results Short CBC 05/05/23 Range/Units 09:01 WBC 10.78 (4.8-10.8) K/ul Hgb 9.1 L (12.0-16.0) g/dl Hct 29.9 L (37.0-47.0) % Plt Count 442 H D (130-400) K/uL BMP 05/05/23 09:01 Sodium 130 L Potassium 4.2 Chloride 97 L Carbon Dioxide 25 BUN 5 L Creatinine 0.44 L Glucose 107 H Calcium 8.8 Medications Administered Current Inpatient Medications Amoxicillin/Clavulanate Potassium (Amoxicillin/Clavulanate 875 Mg Tab) 1 tab PO BIDM [facility]; Protocol Stop: 05/12/23 16:59 Artificial Tears (Artificial Tears) 1 drops OP QID PRN PRN Reason: Dryness Stop: 05/26/23 12:26 Benzonatate (Benzonatate 100 Mg Capsule) 100 mg PO TID PRN PRN Reason: Cough Stop: 05/29/23 09:27 Last Admin: 05/04/23 09:21 Dose: 100 mg Cilostazol (Cilostazol 100 Mg Tab) 50 mg PO BID [facility] Stop: 05/26/23 08:59 Last Admin: 05/05/23 08:12 Dose: 50 mg Duloxetine HCl (Duloxetine Hcl 60 Mg Cap) 60 mg PO QAM [facility] Stop: 05/26/23 08:59 Last Admin: 05/05/23 08:14 Dose: 60 mg Enoxaparin Sodium (Enoxaparin Inj 60 Mg/0.6 Ml Syr) 60 mg SQ Q12H SAE Stop: 06/01/23 08:59 Last Admin: 05/05/23 08:12 Dose: 60 mg Fentanyl (Fentanyl 12 Mcg/Hr Tdsy) 12 mcg TD Q72H [facility] Stop: 05/09/23 22:14 Last Admin: 05/04/23 22:01 Dose: 12 mcg Gabapentin (Gabapentin 100 Mg Cap) 200 mg PO BID [facility] Stop: 05/26/23 08:59 Last Admin: 05/05/23 08:12 Dose: 200 mg Hydrocodone Bit/Homatropine Methylb (Hydrocodone/Homatropine Syrup 5mg/1.5mg 5ml Udp) 5 ml PO Q6H PRN PRN Reason: Cough Stop: 05/15/23 11:00 Last Admin: 05/05/23 11:57 Dose: 5 ml Hydromorphone HCl (Hydromorphone Inj 0.5 Mg/0.5 Ml Syr) 0.5 mg IV Q2HWA PRN PRN Reason: Pain Stop: 05/10/23 15:31 Last Admin: 05/04/23 22:53 Dose: 0.5 mg Promethazine HCl 6.25 mg/ (Sodium Chloride) 50.25 mls @ 201 mls/hr IV Q6H PRN PRN Reason: Nausea And Vomiting Stop: 05/25/23 21:39 Last Infusion: 04/26/23 01:35 Dose: Infused Linezolid (Zyvox) 600 mg in 300 mls @ 300 mls/hr IV Q12H [facility] Stop: 05/12/23 13:59 Last Infusion: 05/05/23 05:47 Dose: Infused Magnesium Sulfate/Dextrose (Magnesium Sulfate / D5w) 1 gm in 100 mls @ 50 mls/hr IV Q2H SAE Stop: 05/05/23 17:59 Last Admin: 05/05/23 12:38 Dose: 50 mls/hr Sodium Phosphate 20 mmol/ (Sodium Chloride) 506.6667 mls @ 88 mls/hr IV ONE ONE Stop: 05/05/23 17:45 Last Admin: 05/05/23 12:43 Dose: 88 mls/hr Lidocaine (Lidocaine 5% 1 Patch) 1 patch TD QAM [facility] Stop: 05/25/23 23:29 Last Admin: 05/05/23 08:14 Dose: 1 patch Lorazepam (Lorazepam 0.5 Mg Tab) 0.5 mg PO Q6H PRN PRN Reason: Anxiety Stop: 06/02/23 21:48 Last Admin: 05/04/23 22:02 Dose: 0.5 mg Magnesium Oxide (Magnesium Oxide 400 Mg Tab) 400 mg PO BID [facility] Stop: 05/31/23 08:59 Last Admin: 05/05/23 08:13 Dose: 400 mg Melatonin (Melatonin 3 Mg Tab) 3 mg PO HS [facility] Stop: 05/26/23 20:59 Miscellaneous (Check Fentanyl Patch Placement) 1 each N/A QS SAE Stop: 05/26/23 00:00 Last Admin: 05/05/23 08:05 Dose: 1 each Miscellaneous (Fentanyl Patch Remove & Waste) 1 each N/A Q3D [facility] Stop: 05/25/23 22:14 Last Admin: 05/04/23 22:44 Dose: 1 each Miscellaneous (Remove Lidoderm Patch) 1 each N/A HS [facility] Stop: 06/01/23 20:59 Last Admin: 05/04/23 22:01 Dose: 1 each Olanzapine (Olanzapine 2.5 Mg Tab) 2.5 mg PO HS [facility] Stop: 05/26/23 20:59 Last Admin: 05/04/23 22:00 Dose: 2.5 mg Ondansetron HCl (Ondansetron Inj 2 Mg/Ml 2 Ml Vial) 4 mg IV Q6H PRN PRN Reason: Nausea Stop: 05/26/23 13:23 Last Admin: 05/04/23 07:34 Dose: 4 mg Pantoprazole Sodium (Pantoprazole 40 Mg Tab) 40 mg PO QAM [facility] Stop: 06/05/23 08:59 Polyethylene Glycol (Polyethylene (Miralax) 17 Gm Pack) 17 gm PO DAILY PRN PRN Reason: Constipation Stop: 06/02/23 05:41 Last Admin: 05/03/23 05:53 Dose: 17 gm Potassium Chloride (Potassium Chloride Crtab 20 Meq Tabcr) 20 meq PO BID [facility] Stop: 05/31/23 08:59 Last Admin: 05/05/23 08:13 Dose: 20 meq Prednisone (Prednisone 20 Mg Tab) 40 mg PO DAILY [facility] Stop: 05/29/23 14:14 Last Admin: 05/05/23 08:14 Dose: 40 mg Tramadol HCl (Tramadol Hcl 50 Mg Tablet) 25 mg PO Q4H PRN PRN Reason: Pain Stop: 05/26/23 00:46 Trimethoprim/Sulfamethoxazole (Sulfamethoxazole/Trimethoprim Ds 800/160mg Tab) 2 tab PO TID [facility] Stop: 05/12/23 13:59 Voriconazole (Voriconazole 200 Mg Tablet) 200 mg PO BID [facility] Stop: 05/12/23 20:59 (1) Sepsis Sepsis type: sepsis due to unspecified organism Sepsis acute organ dysfunction status: with acute organ dysfunction Severe sepsis acute organ dysfunction type: acute respiratory failure Acute respiratory failure type: with hypoxia Severe sepsis shock status: without septic shock Qualified Code(s): A41.9 - Sepsis, unspecified organism; R65.20 - Severe sepsis without septic shock; J96.01 - Acute respiratory failure with hypoxia
[2023-05-05] MEDS: SULFAMETHOXAZOLE/TRIMETHOPRIM DS 800/160MG TAB PO SCH (14:07)
[2023-05-05] MEDS: AMOXICILLIN/CLAVULANATE 875 MG TAB PO SCH (17:11)
[2023-05-05] MEDS: VORICONAZOLE 200 MG TABLET PO SCH (21:33)
[2023-05-06] MEDS: PANTOprazole 40 MG TAB PO SCH (09:17)
[2023-05-06 10:18] LABS: Basophils # (auto) 0.02 K/uL (0.00-0.20); Basophils % (auto) 0.2 %; Eosinophils # (auto) 0.11 K/uL (0.00-0.50); Eosinophils % (auto) 0.9 %; Hematocrit (blood only) 29.7 % (37.0-47.0); Hemoglobin 9.1 g/dl (12.0-16.0); Immature Granulocytes # (auto) 0.56 K/uL (0.01-0.20); Immature Granulocytes % (auto) 4.5 %; Lymphocytes # (auto) 1.04 K/uL (1.20-3.40); Lymphocytes % (auto) 8.4 %; Mean Corpuscular Hemoglobin 23.5 pg (25.0-34.0); Mean Corpuscular Hgb Conc 30.6 g/dL (32.0-36.0); Mean Corpuscular Volume 76.7 fL (80.0-100.0); Monocytes # (auto) 0.65 K/uL (0.11-0.59); Monocytes % (auto) 5.2 %; Neutrophils # (auto) 10.06 K/uL (1.40-6.50); Neutrophils % (auto) 80.8 %; Nucleated RBC # (auto) 0.27 K/uL (0.00-0.12); Nucleated RBC % (auto) 2.2 %; Platelet Count 519 K/uL (130-400); RDW Coefficient of Variation 22.9 % (11.5-14.5); RDW Standard Deviation 60.4 fL (36.4-46.3); Red Blood Count 3.87 M/uL (4.20-5.40); White Blood Count 12.44 K/ul (4.8-10.8)
[2023-05-06 10:32] LABS: BUN Creatinine Ratio 16.3 (10-20); Calcium 9.1 mg/dl (8.6-10.3); Creatinine Clr Calc Pharmacy 148.2 ml/min; Est GFR (African American) 135.5 ml/min; Est GFR (Non-African American) 116.9 ml/min; Magnesium 1.5 mg/dl (1.7-2.4); Phosphorus 2.7 mg/dl (2.5-4.9); Potassium 4.5 mmol/L (3.5-5.1)
[2023-05-06 10:50] LABS: Ovalocytes 2+; Polychromasia 1+; Tear Drop Cells 1+
[2023-05-06 11:17] LABS: Pneumocystis jirovecii PCRQual NOT DETECTED; Pneumocystis jirovecii Source SPUTUM
--- NOTE | 2023-05-06 11:50 | Hospitalist Progress Note ---
Date of Service May 06, 2023 Assessment & Plan (1) Sepsis: (2) Bacteremia due to Gram-positive bacteria: (3) Immunocompromised patient: Plan Ms. Whitfield is a 52 year old female with PMH stage IV cervical cancer with metastasis to lungs, pelvis & vertebrae, chronic thrombosis right femoral vein, BLE thrombectomy and stenting on chronic Lovenox and Pletal, right ureteral stricture, history of adjustment disorder with anxiety, pelvic radiation 2016 (mets to lungs/bone, last treatment: gemcitabine 04/17/23, receives [id number] at clinic in [place], [place]), prior pneumonitis while on Keytruda (last given 07/2022), and chronic prednisone 40 mg daily since 02/16/23 not on PJP ppx, presented with abdominal pain and found to have small bowel obstruction on CT imaging with transition point in RLQ. Acute on chronic small bowel obstructions CT ABD on admission shows a small bowel obstruction with transition point in RLQ Patient initially admitted on 04/25 for management of SBO; however, course complicated by hypoxia, tachycardia, and tenuous hemodynamics. Patient transferred to ICU for close hemodynamic monitoring. Blood culture on admission showed group A beta strep; sensitive to penicillin. Likely source was thought left lower leg cellulitis. Recent admission managed conservatively, follows OP Gen Surgery on 04/16 regarding symptoms and encouraged to hydrate, trial of Bentyl No more symptoms or signs of SBO She has been tolerating diet and has being having regular bowel movement She has been tolerating diet and does not have any symptoms of SBO Appreciate surgery input and recommendation for venting PEG tube placement The patient has been agreeable to it-surgery is going to discuss this with the ID specialist Proposed surgery with venting PEG tube placement will be done as an outpatient and the patient is agreeable Bowel is moved this morning but she complains today of some swelling of the upper abdomen Chest x-ray done this morning showed possible small bowel obstruction-will observe for now Showing no signs of intestinal obstruction and has been tolerating diet with minimal nausea Has been getting physical therapy and doing pretty well Abdomen is minimally distended-she has been tolerating diet and moving her bowels. Minimal nausea Sepsis, POA 2/2 GAS bacteremia POA, Left lower leg cellulitis Immunocompromised Blood Cultures 04/25 4/4 + GAS UA noninfectious appearance Source likely left leg cellulitis MRSA negative ECHO without vegetations/mass Infectious Disease on consult, reviewed following recommendations -GAS less likely pathogen for endocarditis, ECHO completed w/o visible vegetations -Repeat blood culture negative so far -Vancomycin transitioned to Linezolid for antitoxin effect iso GAS -Continue Zosyn for GAS bacteremia and HAP coverage iso resp failure -Monitor clinical improvement, consider antifungal coverage -Zyvox has been discontinued with continuation of antifungals as mentioned below Hydrocortisone changed over to prednisone. Follow-up on infectious disease recommendation. Course further complicated by the acute hypoxemic respiratory failure, as well as increased patchy consolidations and cavitations of bilateral lower lungs. Patient has metastatic lung disease as well as prior pembrolizumab pneumonitis, Remains afebrile on current regimen of antibiotic antifungal White blood cell count is normal but remains tachycardic Will follow ID recommendation on antibiotic and antifungal Discussed with the ID specialist and she will have a follow-up with the patient tomorrow morning to have oral antibiotics regimen Advised to have a repeat CT of the chest in about 2 weeks with an appointment with pulmonology and ID specialist in around 2 to 3 weeks timeframe Will have ID evaluation today and recommendations for possible oral antibiotics and antifungal Appreciate ID recommendation to start oral antibiotics and antifungal on discharge and recommendations to have follow-up with ID specialist and pulmonology as an outpatient with a repeat CAT scan Will have CBC and comprehensive metabolic panel weekly as long as she has been on antifungals and antibiotic Pneumocystis J PCR-positive Current infectious work up ordered thus far: BAL Cryptococcal antigen not detected TB test QFT negative Sputum Gram stain negative and culture is negative too Fungal smear-negative. Culture is pending Repeat blood cultures negative Histoplasma galactomannan antibody negative Legionella source/culture pending, urine Legionella antibody negative Respiratory virus culture rapid-pending 04/26/2023 Blood Culture 07/04 GAS 04/27/2023 Blood Culture NGTD Acute hypoxic respiratory failure, multifactorial CT chest from 04/27 shows extensive bilateral mixed interstitial and alveolar opacities with irregular consolidative, centrally cavitary foci. Worsened compared to previous CT. Possible differentials include PJP pneumonia, pneumonitis from Keytruda, multifocal pneumonia. On full dose bactrim per ID, will deescalate to ppx dose contingent upon return of PJP PCR Patient also on Capsofungin and voriconazole for possible fungal pneumonia. Aspergillus antigen and histo urine antigen pending. Status post bronchoscopy and bronchoalveolar lavage-relevant tests have been pending Will continue current antibiotics and antifungal Remains stable without any further improvement Will try Hycodan for hacking cough Noted to have a positive fluid balance of 20 L Will give 40 of Lasix IV with 10 mg of potassium IV Has had profuse diarrhea since yesterday following a dose of Lasix and the patient is feeling much better Will give another dose of Lasix of 40 mg IV today Check PRP-at around 3 PM potassium was normal Repeat chest x-ray did not show any change in her bilateral multifocal pneumonia Will require outpatient pulmonary evaluation Will need 4 L of oxygen via nasal cannula Acute anemia, likely 2/2 ongoing sepsis, dilutional component Anemia of chronic disease Status post 2 units of packed RBC. No signs or symptoms of bleeding. Hemoglobin stable at 9.1 as of 04/30/2023 Hemoglobin is 8.2 seems to be stable Hemoglobin slightly dropped to 7.8 as of 05/04/2023 Will check CBC tomorrow Hypercoagulability 2/2 metastatic disease Chronic R fem thrombosis, BLE thrombectomy Acute on Chronic Left lower extremity Lymphedema Chronic Anticoagulation Doppler with chronic nonocclusive thrombus RLE extent "improved from prior" per read, correction from prior note NO left LE dvt Will change heparin to Lovenox as anti-Xa heparin level is persistently low. Patient is at 100 mg Lovenox twice daily. She reports that it was started when her weight was higher. Discussed with patient and regarding Lovenox 50 mg twice a day based on her weight presently. She is agreeable with that. Continue cilostazol 50mg BID, monitor platelets on CBC Follow-up on anti-Xa level 4 hours after Lovenox dose(3rd dose) to ensure it is within therapeutic range. Dose might be needed to be changed depending on anti-Xa level. Lovenox has been restarted-will be continued on discharge Primary cervical cancer with metastatic disease Know mets to lungs, pelvis, vertebra CT scan with cavitary lesions, increased since imaging obtained 03/28 Last treatment: 04/17~, received gemcitabine q2 weeks in [place], [place] clinic Continue fentanyl patch, duloxetine 60mg, Gabapentin 200mg BID Anticancer medications are on hold Of her to have a primary oncologist locally but she decided not to have any new oncologist that she will have follow-up with her oncologist in [place] Strongly advised to keep in touch with her oncologist for further recommendation Sinus Tachycardia Prolonged QTc Reports baseline HR in low 100s, ranging 120-150s on admission Likely multifactorial, hypoxia/sepsis Continue telemetry and hemodynamic monitoring in ICU QTc improved 04/27, 446 from 500 Likely secondary to use of bronchodilator Complicated by ongoing infection without any fever and or chills Will advised to drink more fluid Remains tachycardic-advised to drink more fluid Will try very small dose of beta-rebel to see if that helps tachycardia Hypokalemia Hypomagnesemia -Repleted KARIN *, resolved -Cr up to 1.3, now downtrending with IVF -Continues to be on IV fluids for now Severe protein calorie malnutrition -BMI 17.81, iso chronic illness/metastatic disease 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, narcotics and vice detective when able to take po Diet: Full liquid diet Analgesia: home pain regimen, CTM Sedation: Not required at this time DVT: Lovenox Ulcer PPX IV PPI Deescalate abx per ID recommendations PT/OT when tolerated DVT prophylaxis Lovenox CODE STATUSfull code. Patient and open to rediscuss CODE STATUS depending on patient's clinical status. For the time beingshe is okay with a trial of CPR and intubation if it is for short-term only. Dispositionpatient hospitalized with multiple issues outlined above. PT OT ordered. Likely to be discharged in a day or 2 Please note the above document was generated using voice recognition software. It may contain grammatical, syntax or spelling errors. Any formal questions or concerns about the content, text or information contained within the body of this dictation should be directly addressed to the provider for clarification Admission and Anticipated Discharge Date Admission Date: April 25, 2023 Subjective 04/30/2023 The patient was seen and examined in telemetry unit in presence of the family members She has been complaining of shortness of breath without chest tightness and/or wheezing She is status post bronchoscopy and bronchial lavage and complaining more cough Denies any chest pain, palpitation,, abdominal pain, nausea and or vomiting 05/01/2023 The patient was seen and examined in telemetry unit She has been coughing a lot Shortness of breath remains stable and still being tachycardic at 113/min She denies any fever and or chills Has been tolerating diet and denies any nausea or vomiting today 05/02/2023 The patient was seen and examined in telemetry unit in presence of the She has been feeling a little better Her breathing seems to better and cough is improved Minimal pain at the right lower anterior chest wall likely secondary to cough Denies any abdominal symptom No fever and or chills but remains tachycardic 05/03/2023 The patient was seen and examined in telemetry unit She has been a little better but is still requiring 4 L of oxygen via nasal cannula to maintain saturation Cough is improved Complained of some abdominal distention without nausea or vomiting Left leg swelling persist 05/04/2023 The patient was seen and examined in telemetry unit She has been feeling much better today She has had 2 bowel movements following MiraLAX and milk of magnesia Denies any abdominal distention Cough is decreased No fever and or chills Still requiring 4 L of oxygen via nasal cannula to maintain saturation Has had physical therapy and did well 05/05/2023 The patient was seen and examined in telemetry She has been stable and feeling a little better She has had physical therapy and did pretty well with it Abdomen slightly bloated but has been tolerating diet and moving bowels No fever and or chills, no increasing shortness of 05/06/2023 The patient was seen and examined in telemetry unit She has been feeling much better but remains tachycardic Denies any other significant symptoms Abdomen is minimally distended but has been moving bowels normally and eating reasonably Likely to be discharged tomorrow Review of Systems Review of Systems: All systems reviewed and are unremarkable except as noted below Physical Exam Physical Exam: Lying in bed with minimal shortness of breath at rest Constitutional: well developed, well nourished, + ill appearing and average body habitus Eyes: PERRL, conjunctivae normal, anicteric sclerae ENMT: external ear and nose normal, oropharynx normal Neck: trachea midline, no thyromegaly Respiratory: + respiratory distress (Mild to moderate respiratory distress) Auscultation: + diminished lung sounds and + crackles (Minimal crackles bibasally) Cardiovascular: Rate/Rhythm: regular rate, regular rhythm and + tachycardic Heart Sounds: normal S1 and normal S2; no murmur Extremities: + edema (Trace on right side and lymphedema with edema on the left) Gastrointestinal (Abdomen): Inspection/Auscultation: normal bowel sounds; abdomen not distended Percussion/Palpation: abdomen soft; abdomen nontender Musculoskeletal: Extremities: + lower extremity abnormal to inspection (Lymphedema and edema involving the left lower extremity) Left Neurologic: normal touch/pain/proprioception and moves all extremities; no focal motor deficits Lymphatic: no cervical or axillary lymphadenopathy Results & Data Results & Data Vital Signs (Past 12 Hours) Vital Signs Temp Pulse Resp BP Pulse Ox Pulse Ox O2 Del Method 05/06/23 08:19 36.4 C L 120 H 22 120/76 93 Nasal Cannula 05/06/23 03:00 36.1 C L 112 H 18 130/72 96 Nasal Cannula 05/06/23 02:00 95 05/06/23 00:37 Nasal Cannula O2 Del Method O2 Flow Rate O2 Flow Rate 05/06/23 08:19 4 05/06/23 03:00 4 05/06/23 02:00 Nasal Cannula 4 05/06/23 00:37 4 Laboratory Results Short CBC 05/06/23 Range/Units 10:00 WBC 12.44 H (4.8-10.8) K/ul Hgb 9.1 L (12.0-16.0) g/dl Hct 29.7 L (37.0-47.0) % Plt Count 519 H (130-400) K/uL BMP 05/06/23 10:00 Sodium 129 L Potassium 4.5 Chloride 96 L Carbon Dioxide 27 BUN 7 Creatinine 0.43 L Glucose 90 Calcium 9.1 Medications Administered Current Inpatient Medications Amoxicillin/Clavulanate Potassium (Amoxicillin/Clavulanate 875 Mg Tab) 1 tab PO BIDM [facility]; Protocol Stop: 05/24/23 23:59 Last Admin: 05/06/23 09:12 Dose: 1 tab Artificial Tears (Artificial Tears) 1 drops OP QID PRN PRN Reason: Dryness Stop: 05/26/23 12:26 Benzonatate (Benzonatate 100 Mg Capsule) 100 mg PO TID PRN PRN Reason: Cough Stop: 05/29/23 09:27 Last Admin: 05/05/23 21:39 Dose: 100 mg Cilostazol (Cilostazol 100 Mg Tab) 50 mg PO BID [facility] Stop: 05/26/23 08:59 Last Admin: 05/06/23 09:11 Dose: 50 mg Duloxetine HCl (Duloxetine Hcl 60 Mg Cap) 60 mg PO QAM [facility] Stop: 05/26/23 08:59 Last Admin: 05/06/23 09:17 Dose: 60 mg Enoxaparin Sodium (Enoxaparin Inj 60 Mg/0.6 Ml Syr) 60 mg SQ Q12H [facility] Stop: 06/01/23 08:59 Last Admin: 05/06/23 09:11 Dose: 60 mg Fentanyl (Fentanyl 12 Mcg/Hr Tdsy) 12 mcg TD Q72H [facility] Stop: 05/09/23 22:14 Last Admin: 05/04/23 22:01 Dose: 12 mcg Gabapentin (Gabapentin 100 Mg Cap) 200 mg PO BID [facility] Stop: 05/26/23 08:59 Last Admin: 05/06/23 09:17 Dose: 200 mg Hydrocodone Bit/Homatropine Methylb (Hydrocodone/Homatropine Syrup 5mg/1.5mg 5ml Udp) 5 ml PO Q6H PRN PRN Reason: Cough Stop: 05/15/23 11:00 Last Admin: 05/06/23 09:11 Dose: 5 ml Hydromorphone HCl (Hydromorphone Inj 0.5 Mg/0.5 Ml Syr) 0.5 mg IV Q2HWA PRN PRN Reason: Pain Stop: 05/10/23 15:31 Last Admin: 05/06/23 00:15 Dose: 0.5 mg Promethazine HCl 6.25 mg/ (Sodium Chloride) 50.25 mls @ 201 mls/hr IV Q6H PRN PRN Reason: Nausea And Vomiting Stop: 05/25/23 21:39 Last Infusion: 04/26/23 01:35 Dose: Infused Lidocaine (Lidocaine 5% 1 Patch) 1 patch TD QAM [facility] Stop: 05/25/23 23:29 Last Admin: 05/06/23 09:03 Dose: 1 patch Lorazepam (Lorazepam 0.5 Mg Tab) 0.5 mg PO Q6H PRN PRN Reason: Anxiety Stop: 06/02/23 21:48 Last Admin: 05/05/23 21:39 Dose: 0.5 mg Magnesium Oxide (Magnesium Oxide 400 Mg Tab) 400 mg PO BID [facility] Stop: 05/31/23 08:59 Last Admin: 05/06/23 09:16 Dose: 400 mg Melatonin (Melatonin 3 Mg Tab) 3 mg PO HS [facility] Stop: 05/26/23 20:59 Miscellaneous (Check Fentanyl Patch Placement) 1 each N/A QS [facility] Stop: 05/26/23 00:00 Last Admin: 05/06/23 09:03 Dose: 1 each Miscellaneous (Fentanyl Patch Remove & Waste) 1 each N/A Q3D [facility] Stop: 05/25/23 22:14 Last Admin: 05/04/23 22:44 Dose: 1 each Miscellaneous (Remove Lidoderm Patch) 1 each N/A HS [facility] Stop: 06/01/23 20:59 Last Admin: 05/05/23 21:44 Dose: 1 each Olanzapine (Olanzapine 2.5 Mg Tab) 2.5 mg PO HS [facility] Stop: 05/26/23 20:59 Last Admin: 05/05/23 21:31 Dose: 2.5 mg Ondansetron HCl (Ondansetron Inj 2 Mg/Ml 2 Ml Vial) 4 mg IV Q6H PRN PRN Reason: Nausea Stop: 05/26/23 13:23 Last Admin: 05/06/23 09:11 Dose: 4 mg Pantoprazole Sodium (Pantoprazole 40 Mg Tab) 40 mg PO QAM [facility] Stop: 06/05/23 08:59 Last Admin: 05/06/23 09:17 Dose: 40 mg Polyethylene Glycol (Polyethylene (Miralax) 17 Gm Pack) 17 gm PO DAILY PRN PRN Reason: Constipation Stop: 06/02/23 05:41 Last Admin: 05/03/23 05:53 Dose: 17 gm Potassium Chloride (Potassium Chloride Crtab 20 Meq Tabcr) 20 meq PO BID [facility] Stop: 05/31/23 08:59 Last Admin: 05/06/23 09:12 Dose: 20 meq Prednisone (Prednisone 20 Mg Tab) 40 mg PO DAILY [facility] Stop: 05/29/23 14:14 Last Admin: 05/06/23 09:12 Dose: 40 mg Tramadol HCl (Tramadol Hcl 50 Mg Tablet) 25 mg PO Q4H PRN PRN Reason: Pain Stop: 05/26/23 00:46 Trimethoprim/Sulfamethoxazole (Sulfamethoxazole/Trimethoprim Ds 800/160mg Tab) 2 tab PO TID [facility] Stop: 05/17/23 23:59 Last Admin: 05/06/23 09:12 Dose: 2 tab Voriconazole (Voriconazole 200 Mg Tablet) 200 mg PO BID [facility] Stop: 06/09/23 23:59 Last Admin: 05/06/23 09:12 Dose: 200 mg (1) Sepsis Sepsis type: sepsis due to unspecified organism Sepsis acute organ dysfunction status: with acute organ dysfunction Severe sepsis acute organ dysfunction type: acute respiratory failure Acute respiratory failure type: with hypoxia Severe sepsis shock status: without septic shock Qualified Code(s): A41.9 - Sepsis, unspecified organism; R65.20 - Severe sepsis without septic shock; J96.01 - Acute respiratory failure with hypoxia
[2023-05-06] MEDS: METOPROLOL SUCC 25MG EXT REL TAB PO SCH (14:21)
[2023-05-06] MEDS: SIMETHICONE 40 MG/0.6 ML 30ML PO PRN (14:21)
[2023-05-07 07:25] VITALS: TEMP 97.3
[2023-05-07 07:26] LABS: Hematocrit (blood only) 25.5 % (37.0-47.0); Hemoglobin 8.1 g/dl (12.0-16.0); Mean Corpuscular Hgb Conc 31.8 g/dL (32.0-36.0); Mean Corpuscular Volume 75.7 fL (80.0-100.0); Mean Platelet Volume 9.2 fL (9.4-12.4); Nucleated RBC # (auto) 0.13 K/uL (0.00-0.12); Nucleated RBC % (auto) 1.1 %; Platelet Count 454 K/uL (130-400); RDW Standard Deviation 61.1 fL (36.4-46.3); Red Blood Count 3.37 M/uL (4.20-5.40); White Blood Count 12.13 K/ul (4.8-10.8)
[2023-05-07 07:53] LABS: Albumin Globulin Ratio 1.3 (0.9-2); BUN Creatinine Ratio 16.7 (10-20); Bilirubin,Total 0.2 mg/dl (0.2-1.0); Calcium 8.9 mg/dl (8.6-10.3); Est GFR (African American) 136.6 ml/min; Est GFR (Non-African American) 117.8 ml/min; Globulin 2.3 gm/dl (2.5-4.0); Magnesium 1.5 mg/dl (1.7-2.4); Phosphorus 3.3 mg/dl (2.5-4.9); Potassium 5.2 mmol/L (3.5-5.1); Total Protein 5.3 gm/dl (6.0-8.3)
[2023-05-07 07:56] LABS: Anisocytosis Present; Basophils # (auto) 0.02 K/uL (0.00-0.20); Basophils % (auto) 0.2 %; Eosinophils # (auto) 0.05 K/uL (0.00-0.50); Eosinophils % (auto) 0.4 %; Immature Granulocytes # (auto) 0.66 K/uL (0.01-0.20); Immature Granulocytes % (auto) 5.4 %; Lymphocytes # (auto) 1.08 K/uL (1.20-3.40); Lymphocytes % (auto) 8.9 %; Monocytes # (auto) 0.72 K/uL (0.11-0.59); Monocytes % (auto) 5.9 %; Neutrophils % (auto) 79.2 %; Ovalocytes 1+; Poikilocytosis Present; Tear Drop Cells 1+
--- NOTE | 2023-05-07 10:19 | Infectious Disease Progress Nt ---
Date of Service May 07, 2023 Assessment & Plan (1) Bacterial infection due to streptococcus, group A: (2) Sepsis: (3) Metastatic disease: (4) SBO (small bowel obstruction): (5) Chronic deep vein thrombosis (DVT): (6) Abdominal pain: (7) Primary cervical cancer with metastasis to other site: (8) Immunocompromised patient: (9) Abnormal chest CT: (10) Cavitary pneumonia: (11) Acute hypoxemic respiratory failure: (12) Cellulitis of left leg: (13) Rash of groin: Plan Anel Whitfield is a 52-year-old woman with metastatic cervical cancer s/p radical hysterectomy and appendectomy 2013, pelvic radiation 2016 (mets to lungs/bone, last treatment: gemcitabine 04/17/23, receives [id number] at clinic in [place], [place]), prior pneumonitis while on Keytruda (last given 07/2022) and has been on chronic prednisone 40 mg daily since 02/16/23, recent admissions 01/2023 and 03/2023 for SBOs, DVT, who presents to [facility] on 04/25/23 after developing abd pain, n/v, found to have possible SBO, acute hypoxemic respiratory failure, LLE erythema c/f SSTI, also with new L inguinal/truncal erythematous rash, and 04/25 Group A Strep bacteremia. Pts GAS may be from SSTI, also with spreading L truncal rash which could be c/f SSTI vs. NSTI, vs. other non-infectious process (?hemorrhage). 04/26 CT chest with extensive bilateral cavitations of unclear etiology; have started IV Bactrim for possible PJP. With GAS bacteremia in 4/4 bottles. Source may be LLE, which was newly erythematous and swollen on 04/25 and resembling cellulitis/SSTI. Also with new truncal/inguinal rash on 04/26. This was initially c/f Shingles given possibly dermatomal location however is now spreading past midline. The rash continues to spread, now throughout her lower abd and flank/back area. This spread could be c/f NSTI and would have low threshold for involvement of surgery. Also consider whether the petechial nature of the rash may reflect underlying hemorrhage (?Gilliam-Turners sign). GAS is a less likely pathogen for endocarditis but would nevertheless favor evaluating for deep-seated infection. Would repeat BCx to confirm clearance. 04/26 TTE without mass or vegetation. PT with port in place and also with known chronic nonocclusive RLE thrombus. With acute hypoxemic respiratory failure and CT A/P showing patchy consolidations with cavitations in lower lung, CXR with extensive patchy cavitary consolidations. Patient with a history of pneumonitis from Keytruda and with known lung mets. She is not on home O2 but is now hypoxemic. She has been on prednisone 40 mg daily since 01/2023, without PJP ppx. Would be highly concerned about PJP although difficult to discern which of her lung findings are new (prior to starting steroids, her 02/16 CT also with multiple irregular nodules, GGOs, central cavitation). Would be concerned for infectious component of her imaging findings. Especially with her chronic prednisone use, now with wide ddx including PJP, endemic fungi, Aspergillus, and other fungal pna. Will send PJP PCR in sputum, BDG, and also Aspergillus Ag and Histo UrAg. 04/26 serum LDH normal at 169. Will also send for bacterial SpCx, fungal SpCx, and AFB sputum (to evaluate for NTM/MAC). Can continue pip-tazo which will cover GAS bacteremia as well as possible bacterial HAP. Will change vancomycin to linezolid for anti-toxin effect given spreading truncal/inguinal rash, though will monitor blood counts carefully, and note that pt also on other serotonergic meds. With leukopenia (~2 weeks after gemcitabine). If this is persistent/worsening would consider G-CSF. Reasonable to continue acyclovir for now, though pts abd/inguinal rash thus far without vesicles and Shingles less likely at this time. Given the pts persistent respiratory failure, and 04/26 CT chest with worsening extensive bilateral cavitations and GGOs, will start treatment-dose IV Bactrim for PJP, as well as voriconazole + caspofungin for possible pulmonary Aspergillus/mold infection, especially while PJP/fungal studies are pending. (Note that posaconazole and isavuconazole are not on formulary at [facility]; if further clinical worsening or concern for Histo or Mucor, would require escalation to Ambisome). 04/26 Beta D Glucan 219 + 04/30 BAL PJP POSITIVE 04/25 RVP negative Urine histo negative QFT gold negative Aspergillus Antigen Negative, Cryptococcal antigen negative 04/30 Bronch , BAL cx No Growth, AFB smear neg, CX NG, Fungal smear/Cx no growth PJP PC 04/26 PENDING, 04/30 PENDING ABX Bactrim 04/28 Caspo 04/28 Voriconazole 04/28- Piptazo 04/26- ID Problem List: 1. Pneumocystis Pneumonia - BAL PJP Positive 2. Group A Strep bacteremia 3 .Immunosuppression due to chronic steroid use and chemotherapy for cervical cancer 4. LLE SSTI 5.L-sided truncal/inguinal rash, possible SSTI/NSTI, possible Shingles 6.Chronic steroid use, not on PJP prophylaxis 7.Acute hypoxemic respiratory failure, [id number] pulmonary GGOs and cavitary lung lesions, cavitary pneumonia 8.History of pneumonitis from Keytruda 9.Leukopenia 10. Positive Beta D Glucan Recommendations: -C/W Augmentin 875/125 1 po bid, plan for a total 4 week therapy in setting of culture negative cavitary lesion, strep bacteremia through 05/24/23 - +PJP -C/W Bactrim DS 2 tabs po TID plan to treat for 21 days (Started 04/27- 05/17), -Changed Voriconazole to 200mg po BID and plan for 6 week therapy (pending findings) or until seen by pulm or ID and able determine best course of therapy base on cultures and labs. End of therapy 06/09/23 (tentative date) -She will need monitoring of her voriconazole levels, LFTs, Chemistries, CBC while on therapy at least once every 1-2 weeks. If she continues on Voriconazole would recommend EKG checks to ensure her QTc does not change -Strongly recommend she sees ID and Pulmonary in follow up in next 2 weeks -Recommend repeat CT chest within next 2 weeks Anticipated dc today per primary team Lorrie Monte MD Infectious Diseases [facility] direct line: [phone] Admission and Anticipated Discharge Date Admission Date: April 25, 2023 Subjective Subsequent visit was provided via telemedicine using two-way real-time interactive telecommunication between the patient and the telemedicine provider. For the duration of the visit, the provider was performing the assessment from a different facility than the patient. This includesuse of bluetooth stethoscope forauscultationperformed by the telepresenter that the telemedicine provider can hear if described in the physical exam. [employer] contact information: Please call [facility] Call Center . (Phone Number For Physician Use Only) After establishing a telemedicine visit, patient was: Patient was verified with two unique identifiers, Patient/authorized rep acknowledged consent and understanding and Gave permission to continue telehealth session Time Spent with Patient: Subsequent => 35 min Tolerating pills ok No issues Physical Exam Physical Exam: NAD OOB to chair Normal BS Results & Data Vital Signs (Past 12 Hours) Vital Signs Temp Pulse Resp BP BP Pulse Ox Pulse Ox 05/07/23 07:24 36.3 C L 105 H 18 117/72 93 05/07/23 04:10 36.2 C L 110 H 18 153/90 H 91 05/07/23 02:00 94 05/06/23 22:26 36.5 C 105 H 18 132/80 94 O2 Del Method O2 Del Method O2 Flow Rate O2 Flow Rate 05/07/23 07:24 Nasal Cannula 3 05/07/23 04:10 Nasal Cannula 2 05/07/23 02:00 Nasal Cannula 4 05/06/23 22:26 Nasal Cannula 2 (2) Sepsis Sepsis type: sepsis due to unspecified organism Sepsis acute organ dysfunction status: with acute organ dysfunction Severe sepsis acute organ dysfunction type: acute respiratory failure Acute respiratory failure type: with hypoxia Severe sepsis shock status: without septic shock Qualified Code(s): A41.9 - Sepsis, unspecified organism; R65.20 - Severe sepsis without septic shock; J96.01 - Acute respiratory failure with hypoxia (3) Metastatic disease Area of secondary neoplastic involvement: unspecified site Qualified Code(s): C79.9 - Secondary malignant neoplasm of unspecified site
[2023-05-07 11:28] VITALS: BP 121/77; PULSE 127; RESP 20; O2SAT 90
--- NOTE | 2023-05-07 13:21 | Hospitalist Progress Note ---
Date of Service May 07, 2023 Assessment & Plan (1) Sepsis: (2) Bacteremia due to Gram-positive bacteria: (3) Immunocompromised patient: Plan Ms. Whitfield is a 52 year old female with PMH stage IV cervical cancer with metastasis to lungs, pelvis & vertebrae, chronic thrombosis right femoral vein, BLE thrombectomy and stenting on chronic Lovenox and Pletal, right ureteral stricture, history of adjustment disorder with anxiety, pelvic radiation 2016 (mets to lungs/bone, last treatment: gemcitabine 04/17/23, receives q7unoee at clinic in [place], [place]), prior pneumonitis while on Keytruda (last given 07/2022), and chronic prednisone 40 mg daily since 02/16/23 not on PJP ppx, presented with abdominal pain and found to have small bowel obstruction on CT imaging with transition point in RLQ. Acute on chronic small bowel obstructions CT ABD on admission shows a small bowel obstruction with transition point in RLQ Patient initially admitted on 04/25 for management of SBO; however, course complicated by hypoxia, tachycardia, and tenuous hemodynamics. Patient transferred to ICU for close hemodynamic monitoring. Blood culture on admission showed group A beta strep; sensitive to penicillin. Likely source was thought left lower leg cellulitis. Recent admission managed conservatively, follows OP Gen Surgery on 04/16 regarding symptoms and encouraged to hydrate, trial of Bentyl No more symptoms or signs of SBO She has been tolerating diet and has being having regular bowel movement She has been tolerating diet and does not have any symptoms of SBO Appreciate surgery input and recommendation for venting PEG tube placement The patient has been agreeable to it-surgery is going to discuss this with the ID specialist Proposed surgery with venting PEG tube placement will be done as an outpatient and the patient is agreeable Bowel is moved this morning but she complains today of some swelling of the upper abdomen Chest x-ray done this morning showed possible small bowel obstruction-will observe for now Showing no signs of intestinal obstruction and has been tolerating diet with minimal nausea Abdomen is minimally distended with some discomfort but no nausea no vomiting She has been tolerating diet and making regular bowel movement She wants to go home this afternoon Sepsis, POA 2/2 GAS bacteremia POA, Left lower leg cellulitis Immunocompromised Blood Cultures 04/25 4/4 + GAS UA noninfectious appearance Source likely left leg cellulitis MRSA negative ECHO without vegetations/mass Infectious Disease on consult, reviewed following recommendations -GAS less likely pathogen for endocarditis, ECHO completed w/o visible vegetations -Repeat blood culture negative so far -Vancomycin transitioned to Linezolid for antitoxin effect iso GAS -Continue Zosyn for GAS bacteremia and HAP coverage iso resp failure -Monitor clinical improvement, consider antifungal coverage -Zyvox has been discontinued with continuation of antifungals as mentioned below Hydrocortisone changed over to prednisone. Follow-up on infectious disease recommendation. Course further complicated by the acute hypoxemic respiratory failure, as well as increased patchy consolidations and cavitations of bilateral lower lungs. Patient has metastatic lung disease as well as prior pembrolizumab pneumonitis, Remains afebrile on current regimen of antibiotic antifungal White blood cell count is normal but remains tachycardic Will follow ID recommendation on antibiotic and antifungal Discussed with the ID specialist and she will have a follow-up with the patient tomorrow morning to have oral antibiotics regimen Advised to have a repeat CT of the chest in about 2 weeks with an appointment with pulmonology and ID specialist in around 2 to 3 weeks timeframe Will have ID evaluation today and recommendations for possible oral antibiotics and antifungal Appreciate ID recommendation to start oral antibiotics and antifungal on discharge and recommendations to have follow-up with ID specialist and pulmonology as an outpatient with a repeat CAT scan Will have CBC and comprehensive metabolic panel weekly as long as she has been on antifungals and antibiotic Appreciate ID input and recommendation She will need to have outpatient ID appointment and also outpatient pulmonary appointment in about 2 weeks with a repeat CT scan of the chest She will need to have weekly CBC and CMP do as long as she she will be on anti biotic Pneumocystis J PCR-positive Current infectious work up ordered thus far: BAL Cryptococcal antigen not detected TB test QFT negative Sputum Gram stain negative and culture is negative too Fungal smear-negative. Culture is pending Repeat blood cultures negative Histoplasma galactomannan antibody negative Legionella source/culture pending, urine Legionella antibody negative Respiratory virus culture rapid-negative 04/26/2023 Blood Culture 07/04 GAS 04/27/2023 Blood Culture NGTD Acute hypoxic respiratory failure, multifactorial CT chest from 04/27 shows extensive bilateral mixed interstitial and alveolar opacities with irregular consolidative, centrally cavitary foci. Worsened compared to previous CT. Possible differentials include PJP pneumonia, pneumonitis from Keytruda, multifocal pneumonia. On full dose bactrim per ID, will deescalate to ppx dose contingent upon return of PJP PCR Patient also on Capsofungin and voriconazole for possible fungal pneumonia. Aspergillus antigen and histo urine antigen pending. Status post bronchoscopy and bronchoalveolar lavage-relevant tests have been pending Will continue current antibiotics and antifungal Remains stable without any further improvement Will try Hycodan for hacking cough Noted to have a positive fluid balance of 20 L Will give 40 of Lasix IV with 10 mg of potassium IV Has had profuse diarrhea since yesterday following a dose of Lasix and the patient is feeling much better Will give another dose of Lasix of 40 mg IV today Check PRP-at around 3 PM potassium was normal Repeat chest x-ray did not show any change in her bilateral multifocal pneumonia Will require outpatient pulmonary evaluation Status post 2 steps O2 saturation test-will require 3 L at rest and up to 6 with ambulation Acute anemia, likely 2/2 ongoing sepsis, dilutional component Anemia of chronic disease Status post 2 units of packed RBC. No signs or symptoms of bleeding. Hemoglobin stable at 9.1 as of 04/30/2023 Hemoglobin is 8.2 seems to be stable Hemoglobin slightly dropped to 7.8 as of 05/04/2023 Will check CBC tomorrow-hemoglobin is stable at 8.1 Hypercoagulability 2/2 metastatic disease Chronic R fem thrombosis, BLE thrombectomy Acute on Chronic Left lower extremity Lymphedema Chronic Anticoagulation Doppler with chronic nonocclusive thrombus RLE extent "improved from prior" per read, correction from prior note NO left LE dvt Will change heparin to Lovenox as anti-Xa heparin level is persistently low. Patient is at 100 mg Lovenox twice daily. She reports that it was started when her weight was higher. Discussed with patient and regarding Lovenox 50 mg twice a day based on her weight presently. She is agreeable with that. Continue cilostazol 50mg BID, monitor platelets on CBC Follow-up on anti-Xa level 4 hours after Lovenox dose(3rd dose) to ensure it is within therapeutic range. Dose might be needed to be changed depending on anti-Xa level. Lovenox has been restarted-will be continued on discharge Primary cervical cancer with metastatic disease Know mets to lungs, pelvis, vertebra CT scan with cavitary lesions, increased since imaging obtained 03/28 Last treatment: 04/17~, [place] gemcit[place] q2 [place] Continue fentanyl patch, duloxetine 60mg, Gabapentin 200mg BID Anticancer medications are on hold Of her to have a primary oncologist locally but she decided not to have any new oncologist that she will have follow-up with her oncologist in [place] Strongly advised to keep in touch with her oncologist for further recommendation Sinus Tachycardia Prolonged QTc Reports baseline HR in low 100s, ranging 120-150s on admission Likely multifactorial, hypoxia/sepsis Continue telemetry and hemodynamic monitoring in ICU QTc improved 04/27, 446 from 500 Likely secondary to use of bronchodilator Complicated by ongoing infection without any fever and or chills Will advised to drink more fluid Remains tachycardic-advised to drink more fluid Will try very small dose of beta-rebel to see if that helps tachycardia Hypokalemia Hypomagnesemia -Repleted KARIN *, resolved -Cr up to 1.3, now downtrending with IVF -Continues to be on IV fluids for now Severe protein calorie malnutrition -BMI 17.81, iso chronic illness/metastatic disease 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, 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 Patient and open to rediscuss CODE STATUS depending on patient's clinical status. For the time beingshe is okay with a trial of CPR and intubation if it is for short-term only. Dispositionpatient hospitalized with multiple issues outlined above. PT OT ordered. Likely to be discharged this afternoon Please note the above document was generated using voice recognition software. It may contain grammatical, syntax or spelling errors. Any formal questions or concerns about the content, text or information contained within the body of this dictation should be directly addressed to the provider for clarification Admission and Anticipated Discharge Date Admission Date: April 25, 2023 Subjective 04/30/2023 The patient was seen and examined in telemetry unit in presence of the family members She has been complaining of shortness of breath without chest tightness and/or wheezing She is status post bronchoscopy and bronchial lavage and complaining more cough Denies any chest pain, palpitation,, abdominal pain, nausea and or vomiting 05/01/2023 The patient was seen and examined in telemetry unit She has been coughing a lot Shortness of breath remains stable and still being tachycardic at 113/min She denies any fever and or chills Has been tolerating diet and denies any nausea or vomiting today 05/02/2023 The patient was seen and examined in telemetry unit in presence of the She has been feeling a little better Her breathing seems to better and cough is improved Minimal pain at the right lower anterior chest wall likely secondary to cough Denies any abdominal symptom No fever and or chills but remains tachycardic 05/03/2023 The patient was seen and examined in telemetry unit She has been a little better but is still requiring 4 L of oxygen via nasal cannula to maintain saturation Cough is improved Complained of some abdominal distention without nausea or vomiting Left leg swelling persist 05/04/2023 The patient was seen and examined in telemetry unit She has been feeling much better today She has had 2 bowel movements following MiraLAX and milk of magnesia Denies any abdominal distention Cough is decreased No fever and or chills Still requiring 4 L of oxygen via nasal cannula to maintain saturation Has had physical therapy and did well 05/05/2023 The patient was seen and examined in telemetry She has been stable and feeling a little better She has had physical therapy and did pretty well with it Abdomen slightly bloated but has been tolerating diet and moving bowels No fever and or chills, no increasing shortness of 05/06/2023 The patient was seen and examined in telemetry unit She has been feeling much better but remains tachycardic Denies any other significant symptoms Abdomen is minimally distended but has been moving bowels normally and eating reasonably Likely to be discharged tomorrow 05/07/2023 The patient was seen and examined in telemetry unit She has been reasonably stable with some abdominal discomfort Has been tolerating diet and having regular bowel movement She wants to go home this afternoon if possible Review of Systems Review of Systems: All systems reviewed and are unremarkable except as noted below Physical Exam Physical Exam: Lying in bed with minimal shortness of breath at rest Constitutional: + ill appearing and average body habitus Eyes: PERRL, conjunctivae normal, anicteric sclerae ENMT: external ear and nose normal, oropharynx normal Neck: trachea midline, no thyromegaly Respiratory: + respiratory distress (Mild to moderate respiratory distress) Auscultation: + diminished lung sounds and + crackles (Minimal crackles bibasally) Cardiovascular: Rate/Rhythm: regular rate, regular rhythm and + tachycardic Heart Sounds: normal S1 and normal S2; no murmur Extremities: + edema (Trace on right side and lymphedema with edema on the left) Gastrointestinal (Abdomen): Inspection/Auscultation: normal bowel sounds; abdomen not distended Percussion/Palpation: abdomen soft; abdomen nontender Musculoskeletal: Extremities: + lower extremity abnormal to inspection (Lymphedema and edema involving the left lower extremity) Left Neurologic: normal touch/pain/proprioception and moves all extremities; no focal motor deficits Lymphatic: no cervical or axillary lymphadenopathy Results & Data Results & Data Vital Signs (Past 12 Hours) Vital Signs Temp Pulse Pulse Pulse Pulse Pulse Pulse 05/07/23 11:24 36.3 C L 127 H 05/07/23 10:59 144 H 140 H 135 H 125 H 05/07/23 09:00 05/07/23 09:00 98 H 05/07/23 07:24 36.3 C L 105 H 05/07/23 04:10 36.2 C L 110 H 05/07/23 02:00 Pulse Pulse Resp Resp Resp Resp Resp 05/07/23 11:24 20 05/07/23 10:59 124 H 120 H 28 H 28 H 26 H 22 05/07/23 09:00 05/07/23 09:00 05/07/23 07:24 18 05/07/23 04:10 18 05/07/23 02:00 Resp Resp BP BP Pulse Ox Pulse Ox Pulse Ox 05/07/23 11:24 121/77 90 05/07/23 10:59 22 22 85 L 86 L 05/07/23 09:00 05/07/23 09:00 05/07/23 07:24 117/72 93 05/07/23 04:10 153/90 H 91 05/07/23 02:00 Pulse Ox Pulse Ox Pulse Ox Pulse Ox Pulse Ox O2 Del Method O2 Del Method 05/07/23 11:24 Nasal Cannula 05/07/23 10:59 89 L 87 L 90 85 L 05/07/23 09:00 Nasal Cannula 05/07/23 09:00 05/07/23 07:24 Nasal Cannula 05/07/23 04:10 Nasal Cannula 05/07/23 02:00 94 Nasal Cannula O2 Flow Rate O2 Flow Rate O2 Flow Rate O2 Flow Rate O2 Flow Rate O2 Flow Rate O2 Flow Rate 05/07/23 11:24 3 05/07/23 10:59 3 4 6 2 3 05/07/23 09:00 4 05/07/23 09:00 05/07/23 07:24 3 05/07/23 04:10 2 05/07/23 02:00 4 Laboratory Results Short CBC 05/07/23 Range/Units 07:07 WBC 12.13 H (4.8-10.8) K/ul Hgb 8.1 L (12.0-16.0) g/dl Hct 25.5 L (37.0-47.0) % Plt Count 454 H (130-400) K/uL BMP 05/07/23 07:07 Sodium 130 L Potassium 5.2 H Chloride 96 L Carbon Dioxide 29 BUN 7 Creatinine 0.42 L Glucose 78 Calcium 8.9 Liver Function 05/07/23 Range/Units 07:07 Total Bilirubin 0.2 (0.2-1.0) mg/dl AST 8 L (13-39) U/L ALT 6 L (7-52) U/L Alkaline Phosphatase 107 H (34-104) U/L Albumin 3.0 L (3.4-5.0) gm/dl Medications Administered Current Inpatient Medications Amoxicillin/Clavulanate Potassium (Amoxicillin/Clavulanate 875 Mg Tab) 1 tab PO BIDM [facility]; Protocol Stop: 05/24/23 23:59 Last Admin: 05/07/23 07:33 Dose: 1 tab Artificial Tears (Artificial Tears) 1 drops OP QID PRN PRN Reason: Dryness Stop: 05/26/23 12:26 Benzonatate (Benzonatate 100 Mg Capsule) 100 mg PO TID PRN PRN Reason: Cough Stop: 05/29/23 09:27 Last Admin: 05/06/23 20:23 Dose: 100 mg Cilostazol (Cilostazol 100 Mg Tab) 50 mg PO BID [facility] Stop: 05/26/23 08:59 Last Admin: 05/07/23 09:07 Dose: 50 mg Duloxetine HCl (Duloxetine Hcl 60 Mg Cap) 60 mg PO QAM [facility] Stop: 05/26/23 08:59 Last Admin: 05/07/23 09:08 Dose: 60 mg Enoxaparin Sodium (Enoxaparin Inj 60 Mg/0.6 Ml Syr) 60 mg SQ Q12H [facility] Stop: 06/01/23 08:59 Last Admin: 05/07/23 09:12 Dose: 60 mg Fentanyl (Fentanyl 12 Mcg/Hr Tdsy) 12 mcg TD Q72H [facility] Stop: 05/09/23 22:14 Last Admin: 05/04/23 22:01 Dose: 12 mcg Gabapentin (Gabapentin 100 Mg Cap) 200 mg PO BID [facility] Stop: 05/26/23 08:59 Last Admin: 05/07/23 09:12 Dose: 200 mg Hydrocodone Bit/Homatropine Methylb (Hydrocodone/Homatropine Syrup 5mg/1.5mg 5ml Udp) 5 ml PO Q6H PRN PRN Reason: Cough Stop: 05/15/23 11:00 Last Admin: 05/06/23 20:23 Dose: 5 ml Hydromorphone HCl (Hydromorphone Inj 0.5 Mg/0.5 Ml Syr) 0.5 mg IV Q2HWA PRN PRN Reason: Pain Stop: 05/10/23 15:31 Last Admin: 05/06/23 14:27 Dose: 0.5 mg Promethazine HCl 6.25 mg/ (Sodium Chloride) 50.25 mls @ 201 mls/hr IV Q6H PRN PRN Reason: Nausea And Vomiting Stop: 05/25/23 21:39 Last Infusion: 04/26/23 01:35 Dose: Infused Lidocaine (Lidocaine 5% 1 Patch) 1 patch TD QAM [facility] Stop: 05/25/23 23:29 Last Admin: 05/07/23 09:13 Dose: 1 patch Lorazepam (Lorazepam 0.5 Mg Tab) 0.5 mg PO Q6H PRN PRN Reason: Anxiety Stop: 06/02/23 21:48 Last Admin: 05/06/23 20:23 Dose: 0.5 mg Magnesium Oxide (Magnesium Oxide 400 Mg Tab) 400 mg PO BID [facility] Stop: 05/31/23 08:59 Last Admin: 05/07/23 09:09 Dose: 400 mg Melatonin (Melatonin 3 Mg Tab) 3 mg PO HS [facility] Stop: 05/26/23 20:59 Metoprolol Succinate (Metoprolol Succ 25mg Ext Rel Tab) 12.5 mg PO QAM [facility] Stop: 06/05/23 11:59 Last Admin: 05/07/23 09:08 Dose: 12.5 mg Miscellaneous (Check Fentanyl Patch Placement) 1 each N/A QS [facility] Stop: 05/26/23 00:00 Last Admin: 05/07/23 07:33 Dose: 1 each Miscellaneous (Fentanyl Patch Remove & Waste) 1 each N/A Q3D [facility] Stop: 05/25/23 22:14 Last Admin: 05/04/23 22:44 Dose: 1 each Miscellaneous (Remove Lidoderm Patch) 1 each N/A HS [facility] Stop: 06/01/23 20:59 Last Admin: 05/06/23 20:25 Dose: 1 each Olanzapine (Olanzapine 2.5 Mg Tab) 2.5 mg PO HS [facility] Stop: 05/26/23 20:59 Last Admin: 05/06/23 20:23 Dose: 2.5 mg Ondansetron HCl (Ondansetron Inj 2 Mg/Ml 2 Ml Vial) 4 mg IV Q6H PRN PRN Reason: Nausea Stop: 05/26/23 13:23 Last Admin: 05/06/23 09:11 Dose: 4 mg Pantoprazole Sodium (Pantoprazole 40 Mg Tab) 40 mg PO QAM [facility] Stop: 06/05/23 08:59 Last Admin: 05/07/23 09:08 Dose: 40 mg Polyethylene Glycol (Polyethylene (Miralax) 17 Gm Pack) 17 gm PO DAILY PRN PRN Reason: Constipation Stop: 06/02/23 05:41 Last Admin: 05/03/23 05:53 Dose: 17 gm Potassium Chloride (Potassium Chloride Crtab 20 Meq Tabcr) 20 meq PO BID [facility] Stop: 05/31/23 08:59 Last Admin: 05/07/23 09:09 Dose: 20 meq Prednisone (Prednisone 20 Mg Tab) 40 mg PO DAILY [facility] Stop: 05/29/23 14:14 Last Admin: 05/07/23 09:08 Dose: 40 mg Simethicone (Simethicone 40 Mg/0.6 Ml 30ml) 40 mg PO Q6H PRN PRN Reason: Flatulence Stop: 06/05/23 13:04 Last Admin: 05/07/23 07:37 Dose: 40 mg Tramadol HCl (Tramadol Hcl 50 Mg Tablet) 25 mg PO Q4H PRN PRN Reason: Pain Stop: 05/26/23 00:46 Trimethoprim/Sulfamethoxazole (Sulfamethoxazole/Trimethoprim Ds 800/160mg Tab) 2 tab PO TID [facility] Stop: 05/17/23 23:59 Last Admin: 05/07/23 09:09 Dose: 2 tab Voriconazole (Voriconazole 200 Mg Tablet) 200 mg PO BID [facility] Stop: 06/09/23 23:59 Last Admin: 05/07/23 09:08 Dose: 200 mg (1) Sepsis Sepsis type: sepsis due to unspecified organism Sepsis acute organ dysfunction status: with acute organ dysfunction Severe sepsis acute organ dysfunction type: acute respiratory failure Acute respiratory failure type: with hypoxia Severe sepsis shock status: without septic shock Qualified Code(s): A41.9 - Sepsis, unspecified organism; R65.20 - Severe sepsis without septic shock; J96.01 - Acute respiratory failure with hypoxia
--- NOTE | 2023-05-08 08:19 | Discharge Summary ---
Date of Service May 07, 2023 Admission HPI Per Admitting Provider History obtained from patient and records. Medical history significant for metastatic cervical cancer status post surgery/radiation therapy ongoing chemotherapy, chronic steroid Rx for lung mets inflammation as per patient, history DVT status post surgery on therapeutic Lovenox and Pletal Rx, chronic anemia (baseline hemoglobin of 9), chronic pain on fentanyl patch, anxiety disorder. Monthly admissions since January 2023 for recurrent bowel obstruction resolved with conservative management. Patient noted more intense achy abdominal pain today. Loose stools with bilious emesis. No chest pain, no SOB, no cough, no headache symptoms. Patient consulted ER for evaluation. NGT inserted for SBO. Heart rate 1 20-1 50s at the ER. 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 Admission Exam Per Admitting Provider Physical Exam: GENERAL: uncomfortable, anxious, chronically ill, no respiratory distress SKIN: Pallor, warm HEENT: Pale palpebral conjunctivae, no ptosis, dry buccal mucosa, NGT in place NECK : Supple, no tenderness CHEST : Decreased breath sounds, no tenderness HEART : Tachycardic, no obvious murmurs ABDOMEN: Some distention, central abdominal tenderness EXTREMITIES : Minimal LE swelling, no LE tenderness, no other conspicuous deformities noted NEUROLOGIC : Coherent, no facial asymmetry, no other gross focality Principal Diagnosis Sepsis, bacterial infection due to group A streptococcus, history of cervical cancer with metastatic disease ,pneumocystis pneumonia, acute hypoxic respiratory failure on oxygen, chronic anemia, hypercoagulability on Lovenox, acute on chronic SBO Discharge Exam Lying in bed with minimal shortness of breath at rest Constitutional well developed, well nourished, + ill appearing and average body habitus Eyes PERRL, conjunctivae normal, anicteric sclerae ENMT external ear and nose normal, oropharynx normal Neck trachea midline, no thyromegaly Respiratory + respiratory distress (Mild to moderate respiratory distress) Auscultation: + diminished lung sounds and + crackles (Minimal crackles bibasally) Cardiovascular Rate/Rhythm: regular rate, regular rhythm and + tachycardic Heart Sounds: normal S1 and normal S2; no murmur Extremities: + edema (Trace on right side and lymphedema with edema on the left) Gastrointestinal (Abdomen) Inspection/Auscultation: normal bowel sounds; abdomen not distended Percussion/Palpation: abdomen soft; abdomen nontender Musculoskeletal Extremities: + lower extremity abnormal to inspection (Lymphedema and edema involving the left lower extremity) Left Neurologic normal touch/pain/proprioception and moves all extremities; no focal motor deficits Lymphatic no cervical or axillary lymphadenopathy Discharge Data Allergies Allergy/AdvReac Type Severity Reaction Status Date / Time cephalexin [From Keflex] Allergy Rash Verified 05/05/23 12:14 Consultations 04/25/23 20:41 Consult General Surgery Stat ED Decision to Admit Stat 04/26/23 07:07 Consult Waiter/Waitress Informal Routine 04/26/23 11:06 Consult Infectious Diseases Routine 04/26/23 15:36 Consult Palliative Care Routine Procedures Performed Operation Date: 04/30/23 08:30 Actual Procedures p Bronchoscopy Respiratory - Gian Valdez MD Ordered Studies 04/25/23 18:48 CT abd pelvis IV con only Stat 04/26/23 06:42 US venous doppler LE BI Routine 04/27/23 11:03 CT chest diagnostic wo/w con Routine Hospital Course (1) Sepsis: (2) Bacteremia due to Gram-positive bacteria: (3) Immunocompromised patient: Plan Ms. Whitfield is a 52 year old female with PMH stage IV cervical cancer with m etastasis to lungs, pelvis & vertebrae, chronic thrombosis right femoral vein, BLE thrombectomy and stenting on chronic Lovenox and Pletal, right ureteral stricture, history of adjustment disorder with anxiety, pelvic radiation 2016 (mets to lungs/bone, last treatment: gemcitabine 04/17/23, receives [id number] at clinic in [place], [place]), prior pneumonitis while on Keytruda (last given 07/2022), and chronic prednisone 40 mg daily since 02/16/23 not on PJP ppx, presented with abdominal pain and found to have small bowel obstruction on CT imaging with transition point in RLQ. Acute on chronic small bowel obstructions CT ABD on admission shows a small bowel obstruction with transition point in RLQ Patient initially admitted on 04/25 for management of SBO; however, course complicated by hypoxia, tachycardia, and tenuous hemodynamics. Patient transferred to ICU for close hemodynamic monitoring. Blood culture on admission showed group A beta strep; sensitive to penicillin. Likely source was thought left lower leg cellulitis. Recent admission managed conservatively, follows OP Gen Surgery on 04/16 regarding symptoms and encouraged to hydrate, trial of Bentyl No more symptoms or signs of SBO She has been tolerating diet and has being having regular bowel movement She has been tolerating diet and does not have any symptoms of SBO Appreciate surgery input and recommendation for venting PEG tube placement The patient has been agreeable to it-surgery is going to discuss this with the ID specialist Proposed surgery with venting PEG tube placement will be done as an outpatient and the patient is agreeable Bowel is moved this morning but she complains today of some swelling of the upper abdomen Chest x-ray done this morning showed possible small bowel obstruction-will observe for now Showing no signs of intestinal obstruction and has been tolerating diet with minimal nausea Abdomen is minimally distended with some discomfort but no nausea no vomiting She has been tolerating diet and making regular bowel movement She wants to go home this afternoon Sepsis, POA 2/2 GAS bacteremia POA, Left lower leg cellulitis Immunocompromised Blood Cultures 04/25 07/04 + GAS UA noninfectious appearance Source likely left leg cellulitis MRSA negative ECHO without vegetations/mass Infectious Disease on consult, reviewed following recommendations -GAS less likely pathogen for endocarditis, ECHO completed w/o visible vegetations -Repeat blood culture negative so far -Vancomycin transitioned to Linezolid for antitoxin effect iso GAS -Continue Zosyn for GAS bacteremia and HAP coverage iso resp failure -Monitor clinical improvement, consider antifungal coverage -Zyvox has been discontinued with continuation of antifungals as mentioned below Hydrocortisone changed over to prednisone. Follow-up on infectious disease recommendation. Course further complicated by the acute hypoxemic respiratory failure, as well as increased patchy consolidations and cavitations of bilateral lower lungs. Patient has metastatic lung disease as well as prior pembrolizumab pneumonitis, Remains afebrile on current regimen of antibiotic antifungal White blood cell count is normal but remains tachycardic Will follow ID recommendation on antibiotic and antifungal Discussed with the ID specialist and she will have a follow-up with the patient tomorrow morning to have oral antibiotics regimen Advised to have a repeat CT of the chest in about 2 weeks with an appointment with pulmonology and ID specialist in around 2 to 3 weeks timeframe Will have ID evaluation today and recommendations for possible oral antibiotics and antifungal Appreciate ID recommendation to start oral antibiotics and antifungal on discharge and recommendations to have follow-up with ID specialist and pulmonology as an outpatient with a repeat CAT scan Will have CBC and comprehensive metabolic panel weekly as long as she has been on antifungals and antibiotic Appreciate ID input and recommendation She will need to have outpatient ID appointment and also outpatient pulmonary appointment in about 2 weeks with a repeat CT scan of the chest She will need to have weekly CBC and CMP do as long as she she will be on antibiotic Pneumocystis J PCR-positive Current infectious work up ordered thus far: BAL Cryptococcal antigen not detected TB test QFT negative Sputum Gram stain negative and culture is negative too Fungal smear-negative. Culture is pending Repeat blood cultures negative Histoplasma galactomannan antibody negative Legionella source/culture pending, urine Legionella antibody negative Respiratory virus culture rapid-negative 04/26/2023 Blood Culture 07/04 GAS 04/27/2023 Blood Culture NGTD Acute hypoxic respiratory failure, multifactorial CT chest from 04/27 shows extensive bilateral mixed interstitial and alveolar opacities with irregular consolidative, centrally cavitary foci. Worsened compared to previous CT. Possible differentials include PJP pneumonia, pneumonitis from Keytruda, multifocal pneumonia. On full dose bactrim per ID, will deescalate to ppx dose contingent upon return of PJP PCR Patient also on Capsofungin and voriconazole for possible fungal pneumonia. Aspergillus antigen and histo urine antigen pending. Status post bronchoscopy and bronchoalveolar lavage-relevant tests have been pending Will continue current antibiotics and antifungal Remains stable without any further improvement Will try Hycodan for hacking cough Noted to have a positive fluid balance of 20 L Will give 40 of Lasix IV with 10 mg of potassium IV Has had profuse diarrhea since yesterday following a dose of Lasix and the patient is feeling much better Will give another dose of Lasix of 40 mg IV today Check PRP-at around 3 PM potassium was normal Repeat chest x-ray did not show any change in her bilateral multifocal pneumonia Will require outpatient pulmonary evaluation Status post 2 steps O2 saturation test-will require 3 L at rest and up to 6 with ambulation Acute anemia, likely 2/2 ongoing sepsis, dilutional component Anemia of chronic disease Status post 2 units of packed RBC. No signs or symptoms of bleeding. Hemoglobin stable at 9.1 as of 04/30/2023 Hemoglobin is 8.2 seems to be stable Hemoglobin slightly dropped to 7.8 as of 05/04/2023 Will check CBC tomorrow-hemoglobin is stable at 8.1 Hypercoagulability 2/2 metastatic disease Chronic R fem thrombosis, BLE thrombectomy Acute on Chronic Left lower extremity Lymphedema Chronic Anticoagulation Doppler with chronic nonocclusive thrombus RLE extent "improved from prior" per read, correction from prior note NO left LE dvt Will change heparin to Lovenox as anti-Xa heparin level is persistently low. Patient is at 100 mg Lovenox twice daily. She reports that it was started when her weight was higher. Discussed with patient and regarding Lovenox 50 mg twice a day based on her weight presently. She is agreeable with that. Continue cilostazol 50mg BID, monitor platelets on CBC Follow-up on anti-Xa level 4 hours after Lovenox dose(3rd dose) to ensure it is within therapeutic range. Dose might be needed to be changed depending on anti-Xa level. Lovenox has been restarted-will be continued on discharge Primary cervical cancer with metastatic disease Know mets to lungs, pelvis, vertebra CT scan with cavitary lesions, increased since imaging obtained 03/28 Last treatment: 04/17~, received gemcitabine q2 weeks in [place] clinic Continue fentanyl patch, duloxetine 60mg, Gabapentin 200mg BID Anticancer medications are on hold Of her to have a primary oncologist locally but she decided not to have any new oncologist that she will have follow-up with her oncologist in [place] Strongly advised to keep in touch with her oncologist for further recommendation Sinus Tachycardia Prolonged QTc Reports baseline HR in low 100s, ranging 120-150s on admission Likely multifactorial, hypoxia/sepsis Continue telemetry and hemodynamic monitoring in ICU QTc improved 04/27, 446 from 500 Likely secondary to use of bronchodilator Complicated by ongoing infection without any fever and or chills Will advised to drink more fluid Remains tachycardic-advised to drink more fluid Will try very small dose of beta-rebel to see if that helps tachycardia Hypokalemia Hypomagnesemia -Repleted KARIN *, resolved -Cr up to 1.3, now downtrending with IVF -Continues to be on IV fluids for now Severe protein calorie malnutrition -BMI 17.81, iso chronic illness/metastatic disease 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, lock expert when able to take po Diet: Full liquid diet Analgesia: home pain regimen, CTM Sedation: Not required at this time DVT: Lovenox Ulcer PPX IV PPI Deescalate abx per ID recommendations PT/OT when tolerated DVT prophylaxis Lovenox CODE STATUSfull code. Patient and open to rediscuss CODE STATUS depending on patient's clinical status. For the time beingshe is okay with a trial of CPR and intubation if it is for short-term only. Dispositionpatient hospitalized with multiple issues outlined above. PT OT ordered. Likely to be discharged this afternoon Please note the above document was generated using voice recognition software. It may contain grammatical, syntax or spelling errors. Any formal questions or concerns about the content, text or information contained within the body of this dictation should be directly addressed to the provider for clarification Total Time Total Time Spent Total Time Spent (In Minutes): 45 minutes Discharge Plan Discharge Items Patient Disposition: Home - Home Health Services Reason For Visit: TACHY, SBO Discharge Diagnosis: Sepsis, bacterial infection due to group A streptococcus, history of cervical cancer with metastatic disease ,pneumocystis pneumonia, acute hypoxic respiratory failure on oxygen, chronic anemia, hypercoagulability on Lovenox, acute on chronic SBO Condition on Discharge: Fair Activity: As commented below Activity Comment: Please take extreme precautions to avoid falls Non-emergency contact: Primary Care Provider Call non-emergency contact if: you have any medication questions and your symptoms worsen Follow-up/Referrals: Fabio Foster, [Surgeon] - (Please call to schedule follow up in the office to discuss scheduling you for an outpatient venting g-tube) Gian Valdez MD [Physician] - 05/21/23 8:45 am Kristyn Brown MD [Primary Care Provider] - (Date & Time 05/14/2023 11:00 AM Provider Kristyn Brown MD [facility] ) Diet: Low Fiber Addtl Attending Provider Instructions: Please take precautions to avoid falls Take your medications as advised You need to have CBC and comprehensive metabolic panel weekly through your PCP as long as you are on antibiotic/antifungal You will need to see pulmonary as an outpatient with a CT scan of your chest You will also need to see outpatient infectious disease doctor through your PCP within the next 2 weeks Strongly advised to keep in touch with your oncologist Pending Studies at Discharge: No Stand-Alone Forms: My [employer], Smoking Cessation Medications and DC Order Prescriptions: New sulfamethoxazole-trimethoprim [Bactrim DS] 800-160 mg Tablet 2 tab PO TID Qty: 60 0RF magnesium oxide 400 mg (241.3 mg magnesium) Tablet 400 mg PO BID Qty: 60 0RF pantoprazole 40 mg Tablet,Delayed Release (Dr/Ec) 40 mg PO QAM Qty: 30 0RF lidocaine 5 % Adhesive Patch,Medicated 1 patch transdermal QAM Qty: 30 0RF hydrocodone-homatropine [Hydromet] 5-1.5 mg/5 mL Syrup 5 ml PO Q6H PRN (Reason: cough) Qty: 100 0RF metoprolol succinate 25 mg Tablet Extended Release 24 Hr 12.5 mg PO QAM Qty: 15 0RF amoxicillin-pot clavulanate 875-125 mg Tablet 1 tab PO BIDM Qty: 34 0RF voriconazole [Vfend] 200 mg Tablet 200 mg PO BID Qty: 66 0RF Continued sennosides [senna] 8.6 mg Tablet 8.6 mg PO DAILY PRN (Reason: Constipation) dronabinol 2.5 mg capsule 2.5 mg PO BID duloxetine 60 mg capsule,delayed release(DR/EC) 60 mg PO QAM magnesium oxide 400 mg magnesium Tablet 400 mg PO QAM dicyclomine 20 mg tablet 20 mg PO TID PRN (Reason: Abdominal Discomfort) prednisone 20 mg tablet 40 mg PO QAM potassium chloride 20 mEq tablet extended release 20 meq PO QAM polyethylene glycol 3350 [Miralax] 17 gram Powder In Packet 17 g PO DAILY oxybutynin chloride 10 mg tablet extended release 24hr 10 mg PO PM cilostazol 50 mg tablet 50 mg PO BID melatonin 3 mg Tablet 3 mg PO HS olanzapine 2.5 mg tablet 2.5 mg PO HS gabapentin 100 mg capsule 200 mg PO BID cyclosporine [Restasis] 0.05 % dropperette 1 drp OPB BID fentanyl 12 mcg/hr patch 72 hour 12 mcg transdermal Q72H Tyrvaya 0.03 mg/spray spray, metered, non-aerosol 1 spray INTRANASAL BID Changed enoxaparin 100 mg/mL syringe 60 mg subcut BID Qty: 10 0RF Rx Instructions: Patient has it at home.Will provide more if needed Discharge Orders: Discharge Order (Routine); Ordered 05/07/23 Ordered By: Jose G Cunha/Other Patient Handouts: Low-Fiber Diet Admission Data Admit Date/Time: 04/25/23 21:39 Attending Provider: Jose G Geiger Admit Provider: Thompson Robin Primary Care Provider: Kristyn Brown Other Providers: Fabio Foster; Thompson Robin; Daniel Carver; Jeanie Crum; Cami Hauser; Nelly Schaffer; Lorrie Monte; Maritza Ayala; Todd Walton; Elyssa Prado; Anum Desir; Anita Duggan; Simon Dawn; [facility] Other Interventions: Discharge Summary Assessment (RN) Last Done: 05/07/23 15:34
--- NOTE | 2023-05-09 13:42 | Coding Query ---
CODING QUERY To promote full compliance with coding requirements relating to patient care, provider participation is requested in all cases of drywall taper uncertainty. Please assist us with the question(s) below: Please clarify the meaning of KARIN. KARIN is not a valid abbreviation. Thank you. ( + ) Acute Kidney Injury ( ) Acute Kidney Insufficiency ( ) Other (Specify): Principal Diagnosis: "that condition established after study, to be chiefly responsible for occasioning the admission of the patient to the hospital for care." Co-Existing Principal Diagnosis: "when two or more diagnoses equally meet the criteria for principal diagnosis as determined by the circumstances of admission, diagnostic work up, and/or therapy provided, and the Alphabetic Index, Tabular List, or another coding guideline does not provide sequencing direction, any one of the diagnoses may be sequenced first." "When the physician has documented what appears to be a current diagnosis in the body of the record, but has not included the diagnosis in the final diagnostic statement, the physician should be asked whether the diagnosis should be added." (Source Coding Clinic 2 QTR90. p3-4) BRITTNY
[2023-05-11 11:46] LABS: Legionella Culture Source *LT UPPER LOBE; Source BAL LUL
== END 2023-05-07 16:45 | disposition home health service (06) | DRG 871 ==
LOC: ED 17:23 → SUATTDRO 21:39 → EDINP 21:39 → 1E 21:58 → 2S 04-28 07:24

== ENCOUNTER 2023-05-09 21:08 | Inpatient (IN) ==
[2023-05-09 21:52] LABS: Base Excess VBG 0 mEq/L; HCO3 VBG 25 mmol/L; Oxygen Saturation VBG < 60.0 %; PCO2 VBG 43 mmHg (38-50); PO2 VBG 31 mmHg; pH VBG 7.38 (7.36-7.41)
[2023-05-09] MEDS: fentaNYL citrate PF 100 MCG/2 ML VIAL IV STA (21:57)
[2023-05-09] MEDS: SODIUM CHLORIDE 0.9% 1,000 ML IV SCH (21:57)
[2023-05-09] MEDS ORDERED: SODIUM CHLORIDE 0.9% 250 ML IV PRN (22:00)
[2023-05-09 22:03] LABS: Hemoglobin 6.8 g/dl (12.0-16.0); Mean Corpuscular Hemoglobin 23.7 pg (25.0-34.0); Mean Corpuscular Hgb Conc 30.9 g/dL (32.0-36.0); Mean Corpuscular Volume 76.7 fL (80.0-100.0); Mean Platelet Volume 9.5 fL (9.4-12.4); Nucleated RBC # (auto) 1.22 K/uL (0.00-0.12); Nucleated RBC % (auto) 5.4 %; Platelet Count 600 K/uL (130-400); RDW Coefficient of Variation 23.9 % (11.5-14.5); RDW Standard Deviation 61.3 fL (36.4-46.3); Red Blood Count 2.87 M/uL (4.20-5.40)
[2023-05-09] MEDS ORDERED: VANCOMYCIN CONSULT ACTIVE PRN (22:11)
[2023-05-09 22:19] LABS: Albumin Level 3.1 gm/dl (3.4-5.0); BUN Creatinine Ratio 36.4 (10-20); Bilirubin,Total 0.3 mg/dl (0.2-1.0); Calcium 8.6 mg/dl (8.6-10.3); Creatinine Clr Calc Pharmacy 119.6 ml/min; Est GFR (Non-African American) 107.8 ml/min; Magnesium 1.4 mg/dl (1.7-2.4); Potassium 3.8 mmol/L (3.5-5.1); Total Protein 5.5 gm/dl (6.0-8.3)
[2023-05-09 22:22] LABS: Troponin I High Sensitivity 20.2 pg/ml (0-14)
[2023-05-09 22:26] LABS: INR 1.1 (0.9-1.1); Partial Thromboplastin Ratio 0.8; Partial Thromboplastin Time 22 Seconds (21-31); Prothrombin Time 11.5 Seconds (9.0-12.0)
[2023-05-09 22:28] LABS: ALC (manual) 1.36 K/uL (1.2-3.4); ANC (manual) 19.75 K/uL (1.4-6.5); Anisocytosis Present; Echinocytes 1+; Lymphocytes # (manual) 1.36 K/uL (1.2-3.4); Lymphocytes % (manual) 6 %; Metamyelocytes # (manual) 0.23 K/uL (0-0); Metamyelocytes % (manual) 1 %; Monocytes # (manual) 0.68 K/uL (0.11-0.59); Monocytes % (manual) 3 %; Myelocytes # (manual) 0.68 K/uL (0-0); Myelocytes % (manual) 3 %; Neutrophils # (manual) 19.75 K/uL (1.40-6.50); Neutrophils % (manual) 87 %; Ovalocytes 1+; Tear Drop Cells 1+
[2023-05-09] MEDS: OPTIRAY 320 500ml IV ONE (22:30)
[2023-05-09 22:34] LABS: Adenovirus PCR Not Detected (NotDetected); Bordetella parapertussis PCR Not Detected (NotDetected); Bordetella pertussis PCR Not Detected (NotDetected); Chlamydia pneumoniae PCR Not Detected (NotDetected); Coronavirus 229E PCR Not Detected (NotDetected); Coronavirus CoV-2 (COVID19)PCR Not Detected (NotDetected); Coronavirus HKU1 PCR Not Detected (NotDetected); Coronavirus NL63 PCR Not Detected (NotDetected); Coronavirus OC43PCR Not Detected (NotDetected); Human Metapneumovirus PCR Not Detected (NotDetected); Influenza A PCR Not Detected (NotDetected); Influenza B PCR Not Detected (NotDetected); Mycoplasma pneumoniae PCR Not Detected (NotDetected); Parainfluenza Virus 1 PCR Not Detected (NotDetected); Parainfluenza Virus 2 PCR Not Detected (NotDetected); Parainfluenza Virus 3 PCR Not Detected (NotDetected); Parainfluenza Virus 4 PCR Not Detected (NotDetected); Respiratory Syncytial VirusPCR Not Detected (NotDetected); Rhinovirus/Enterovirus PCR Not Detected (NotDetected)
[2023-05-09] MEDS: PIPERACILLIN/TAZOBACTAM 4.5 GM/120 ML BAG IV ONE (22:36)
--- NOTE | 2023-05-09 23:07 | Emergency Department Note ---
History of Present Illness General Chief Complaint: Vomiting Stated Complaint: VOMITING, NAUSEA Time Seen by Provider: 05/09/23 21:25 History of Present Illness Provider Complaint: abdominal pain Onset (ago): 1 day(s) Pain Consistency: constant Location: diffuse Severity: severe Maximum Pain Intensity: 10 Current Pain Intensity: 10 Quality: + stabbing and + sharp Relieved By: + nothing Exacerbated By: + nothing Context: + history of similar episodes (Feels like previous bowel obstruction); no foreign travel, no possible food poisoning, no sick contacts, no recent antibiotic use, no recent surgery/procedure or no recent injury Associated Symptoms: + nausea and + vomiting; no diarrhea, no fever, no chills, no constipation, no dysuria, no hematemesis, no hematochezia, no melena, no hematuria, no anorexia, no syncope, no headache, no neck pain, no back pain, no chest pain and no breathing difficulty No vaginal bleeding. Related Data Patient Confirmed : No Home Medications Medication Instructions Recorded Confirmed Type cilostazol 50 mg tablet 50 mg PO BID 02/16/23 05/09/23 History cyclosporine 0.05 % eye drops in a 1 drp OPB BID 02/16/23 05/09/23 History dropperette (Restasis) fentanyl 12 mcg/hr transdermal 12 mcg transdermal Q72H 02/16/23 05/09/23 History patch gabapentin 100 mg capsule 200 mg PO BID 02/16/23 05/09/23 History melatonin 3 mg tablet 3 mg PO HS 02/16/23 05/09/23 History olanzapine 2.5 mg tablet 2.5 mg PO HS 02/16/23 05/09/23 History oxybutynin chloride 10 mg 10 mg PO PM 02/16/23 05/09/23 History tablet,extended release 24 hr polyethylene glycol 3350 17 gram 17 g PO DAILY 02/16/23 05/09/23 History oral powder packet (Miralax) varenicline 0.03 mg/spray nasal 1 spray intranasal BID 02/16/23 05/09/23 History spray (Tyrvaya) dronabinol 2.5 mg capsule 2.5 mg PO BID 03/28/23 05/09/23 History duloxetine 60 mg capsule,delayed 60 mg PO QAM 03/28/23 05/09/23 History release magnesium oxide 400 mg PO QAM 03/28/23 05/09/23 History sennosides 8.6 mg tablet (senna) 8.6 mg PO DAILY PRN Constipation 03/28/23 05/09/23 History dicyclomine 20 mg tablet 20 mg PO TID PRN Abdominal 04/25/23 05/09/23 History Discomfort potassium chloride 20 mEq 20 meq PO QAM 04/25/23 05/09/23 History tablet,extended release prednisone 20 mg tablet 40 mg PO QAM 04/25/23 05/09/23 History amoxicillin 875 mg-potassium 1 tab PO BIDM #34 tabs 05/07/23 05/09/23 Rx clavulanate 125 mg tablet enoxaparin 100 mg/mL subcutaneous 60 mg (0.6 mL) subcut BID #10 mL 05/07/23 05/09/23 Rx syringe hydrocodone-homatropine 5 mg-1.5 5 ml PO Q6H PRN cough #100 mL 05/07/23 05/09/23 Rx mg/5 mL oral syrup (Hydromet) lidocaine 5 % topical patch 1 patch transdermal QAM #30 ea 05/07/23 05/09/23 Rx magnesium oxide 400 mg (241.3 mg 400 mg PO BID #60 tabs 05/07/23 05/09/23 Rx magnesium) tablet metoprolol succinate 25 mg 12.5 mg (1/2 x 25 mg) PO QAM #15 05/07/23 05/09/23 Rx tablet,extended release 24 hr tabs pantoprazole 40 mg tablet,delayed 40 mg PO QAM #30 tabs 05/07/23 05/09/23 Rx release sulfamethoxazole 800 2 tab PO TID #60 tabs 05/07/23 05/09/23 Rx mg-trimethoprim 160 mg tablet (Bactrim DS) voriconazole 200 mg tablet (Vfend) 200 mg PO BID #66 tabs 05/07/23 05/09/23 Rx Allergies Allergy/AdvReac Type Severity Reaction Status Date / Time cephalexin [From Keflex] Allergy Rash Verified 05/09/23 22:32 Past Med/Surg History Medical History PCP (pneumocystis jiroveci pneumonia) Acute hypoxemic respiratory failure Bacterial infection due to streptococcus, group A Immunocompromised patient SBO (small bowel obstruction) Chronic deep vein thrombosis (DVT) Primary cervical cancer with metastasis to other site Surgical History History of vascular surgery history bilateral lower extremity thrombectomy and stenting History of appendectomy History of hysterectomy Family History Father Cancer Other No significant family history Social History Smoking Status: Never smoker Hx Alcohol Use: No Hx Substance Use: No Preferred Language: Vietnamese Communication Ability: Effective Half Section Ironer Required: No Beliefs That Will Affect Care: None marital status: Current Living Situation: Spouse current occupational status: disabled How many Children do You have: 0 Feels Safe at Home: Yes Assistive Devices: Cane Physical Exam 2 Vital Signs: Vital Signs - 24 hr 05/09/23 21:15 05/09/23 21:15 05/09/23 21:16 Temperature 36.6 C Temperature Source Oral Pulse Rate 123 H 123 H 122 H Pulse Rate from Sp O2 Sensor 123 H Pulse Rhythm Pulse Strength Respiratory Rate 24 20 Blood Pressure 96/70 L Blood Pressure Maylin n 78 Blood Pressure Pos ition Pulse Oximetry 95 94 Oxygen Delivery Me thod Nasal Cannula Oxygen Flow Rate 6 Sepsis Recent Feve r Within 48 Hours No Sepsis New/Unexpla ined Change in Men bruce Status No Sepsis Action Take n by Nursing No Action Required 05/09/23 21:30 05/09/23 21:45 05/09/23 22:00 Temperature Temperature Source Pulse Rate 124 H 122 H Pulse Rate from Sp O2 Sensor 125 H 122 H Pulse Rhythm Pulse Strength Respiratory Rate 26 H 26 H Blood Pressure 96/77 L Blood Pressure Maylin n 83 Blood Pressure Pos ition Pulse Oximetry 93 94 96 Oxygen Delivery Me thod Nasal Cannula Oxygen Flow Rate 4 Sepsis Recent Feve r Within 48 Hours Sepsis New/Unexpla ined Change in Men bruce Status Sepsis Action Take n by Nursing 05/09/23 22:00 05/09/23 22:15 05/09/23 23:11 Temperature 36.4 C L Temperature Source Oral Pulse Rate 121 H 118 H 112 H Pulse Rate from Sp O2 Sensor 121 H 118 H Pulse Rhythm Pulse Strength Respiratory Rate 18 18 14 Blood Pressure 109/69 116/74 109/76 Blood Pressure Maylin n 82 88 87 Blood Pressure Pos ition Semi-fowlers Pulse Oximetry 96 95 95 Oxygen Delivery Me thod Oxygen Flow Rate 4 Sepsis Recent Feve r Within 48 Hours Sepsis New/Unexpla ined Change in Men bruce Status Sepsis Action Take n by Nursing 05/09/23 23:30 05/09/23 23:45 05/10/23 00:15 Temperature 36.6 C 36.6 C 36.6 C Temperature Source Oral Oral Oral Pulse Rate 107 H 111 H 112 H Pulse Rate from Sp O2 Sensor Pulse Rhythm Regular Regular Regular Pulse Strength Normal Normal Normal Respiratory Rate 18 20 20 Blood Pressure 106/70 111/76 107/70 Blood Pressure Maylin n 82 87 82 Blood Pressure Pos ition Lying Lying Lying Pulse Oximetry 97 97 96 Oxygen Delivery Me thod Oxygen Flow Rate 4 4 4 Sepsis Recent Feve r Within 48 Hours Sepsis New/Unexpla ined Change in Men bruce Status Sepsis Action Take n by Nursing Physical Exam: Physical Exam GENERAL: Ill-appearing HENT: Exam performed. -Head: Normocephalic and atraumatic. EYES: Conjunctivae and EOM are normal. Pupils are equal, round, and reactive to light. Right eye exhibits no discharge. Left eye exhibits no discharge. No scleral icterus. CV: Tachycardic rate, regular rhythm, normal heart sounds and intact distal pulses. There is no peripheral edema. Palpable radial pulses bue. PULM/CHEST: Rhonchi bilaterally. ABD: Distended abdomen. Decreased bowel sounds. Diffuse pain on palpation of the abdomen. NEURO: She is alert and oriented to person, place, and time. Motor and sensation grossly intact SKIN: Pale. Course Course 2124: The patient was evaluated in room A2. A complete history and physical exam was performed Cardiac monitoring: An order was placed for continuous cardiac monitoring. The monitor shows a rate of 110 with sinus tachycardia rhythm interpreted by me Patient tachycardic and hypotensive. Sepsis protocols initiated. 2199: Vital signs improving with IV fluids. Lactic acid within normal limits. Received message from lab which shaves patient's hemoglobin of 6.8. Rectal exam performed with female nursing factory assembler Litzy at bedside. Hemoccult positive. Patient will be ordered 1 unit of packed red blood cells and be started on Protonix bolus and drip. 2214: Vital signs improving with IV fluids. Labs show white blood cell count of 22.7 up from 12.132 days ago. Patient's VBG is within normal limits. Creatinine within normal limits. Magnesium 1.4, magnesium repletion will be started in the emergency department. High-sensitivity troponin 20.2. This thought to be due to demand ischemia secondary to patient's anemia. Chest x-ray viewed by me shows bilateral diffuse infiltrates although when compared to the previous chest x-ray from May 03, 2023 does appear improved significantly. Patient be treated with Zosyn and vancomycin. Will hold off on switching to IV Bactrim given the patient's chest x-ray does appear improved from a PCP pneumonia standpoint. 2328: Vital signs stable. Patient CT shows diffuse prominent gas and fluid distention of distal small bowel entire colon which is similar to the previous CT on April 25, 2023. [facility] hypomagnesemia and PCP pneumonia. Discussed the case with Dr. Melgar who states he will evaluate the patient for admission. Administered Medications Magnesium Sulfate/Dextrose (Magnesium Sulfate / D5w) 1 gm in 100 mls @ 50 mls/hr IV Q2H SAE Stop: 05/10/23 03:29 Last Admin: 05/10/23 01:45 Dose: 50 mls/hr Documented By: NABEEL Potassium Chloride/Sodium Chloride (Normal Saline W/20 Meq Kcl) 20 meq in 1,000 mls @ 75 mls/hr IV .[id number] STA; Protocol Stop: 05/10/23 12:43 Last Admin: 05/10/23 00:11 Dose: 75 mls/hr Documented By: NABEEL Discontinued Medications Dexamethasone (Dexamethasone Sod Inj 4 Mg/Ml Vial) 4 mg IV NOW STA Stop: 05/09/23 23:25 Last Admin: 05/09/23 23:50 Dose: 4 mg Documented By: NABEEL Fentanyl Citrate (Fentanyl Citrate Pf 100 Mcg/2 Ml Vial) 50 mcg IV NOW STA Stop: 05/09/23 21:45 Last Admin: 05/09/23 21:57 Dose: 50 mcg Documented By: ELDER Sodium Chloride (Nss) 1,000 mls @ 999 mls/hr IV .Q1H1M SAE Stop: 05/09/23 22:30 Last Infusion: 05/09/23 23:03 Dose: Infused Documented By: Admin: 05/09/23 21:57 Dose: 999 mls/hr Documented By: ELDER Piperacillin Sod/Tazobactam Sod (Zosyn) 4.5 gm in 120 mls @ 240 mls/hr IV NOW ONE Stop: 05/09/23 22:40 Last Infusion: 05/09/23 23:10 Dose: Infused Documented By: Admin: 05/09/23 22:36 Dose: 240 mls/hr Documented By: ELDER Pantoprazole Sodium 80 mg/ (Dextrose) 120 mls @ 480 mls/hr IV NOW ONE Stop: 05/09/23 22:38 Last Infusion: 05/09/23 23:40 Dose: Infused Documented By: Admin: 05/09/23 23:16 Dose: 480 mls/hr Documented By: ELDER Magnesium Sulfate/Dextrose (Magnesium Sulfate / D5w) 1 gm in 100 mls @ 100 mls/hr IV NOW STA Stop: 05/09/23 23:45 Last Infusion: 05/10/23 00:50 Dose: Infused Documented By: Admin: 05/09/23 23:46 Dose: 100 mls/hr Documented By: NABEEL Promethazine HCl (Phenergan) 6.25 mg in 50.25 mls @ 201 mls/hr IV NOW STA Stop: 05/10/23 00:26 Last Infusion: 05/10/23 01:40 Dose: Infused Documented By: Admin: 05/10/23 01:20 Dose: 201 mls/hr Documented By: NABEEL Ioversol (Optiray 320 500ml) 87 ml IV ONCE ONE Stop: 05/09/23 22:31 Last Admin: 05/09/23 22:30 Dose: 87 ml Documented By: PAM Pantoprazole Sodium (Pantoprazole Bolus/Drip) 1 each IV NOW STA Stop: 05/09/23 22:25 Last Admin: 05/09/23 23:40 Dose: Not Given Documented By: NABEEL Medical Decision Making Medical Records Attestation: I reviewed the patient's medical records. External medical records reviewed. Patient was admitted to [facility] from April 25 to May 07, 2023. At that time the patient was admitted for small bowel obstruction. Patient was diagnosed with PCP pneumonia and started on Bactrim. Patient was thought to be septic from a group a bacteremia thought to be due to a left lower leg cellulitis. Patient did have acute anemia which was thought to be likely secondary to ongoing sepsis at a delusional component according to the discharge summary by Dr. Geiger. Patient Was transfused 2 units of packed red blood cells and is on Lovenox. Laboratory Data Attestation: I reviewed the patient's lab results. 05/09/23 21:38 05/09/23 21:38 Lab Results 05/09/23 05/09/23 05/09/23 Range/Units 21:35 21:38 21:41 WBC 22.70 H (4.8-10.8) K/ul RBC 2.87 L (4.20-5.40) M/uL Hgb 6.8 L* (12.0-16.0) g/dl Hct 22.0 L (37.0-47.0) % MCV 76.7 L (80.0-100.0) fL MCH 23.7 L (25.0-34.0) pg MCHC 30.9 L (32.0-36.0) g/dL RDW Std Deviation 61.3 H (36.4-46.3) fL RDW Coeff of Luis 23.9 H (11.5-14.5) % Plt Count 600 H (130-400) K/uL MPV 9.5 (9.4-12.4) fL Absolute Nucleated RBC 1.22 H (0.00-0.12) K/uL Nucleated RBC % (auto) 5.4 % Neutrophils % (Manual) 87 % Lymphocytes % (Manual) 6 % Monocytes % (Manual) 3 % Metamyelocytes % (Man) 1 % Myelocytes % (Man) 3 % Neutrophils # (Manual) 19.75 H (1.40-6.50) K/uL Total Absolute Neuts 19.75 H (1.4-6.5) K/uL Lymphocytes # (Manual) 1.36 (1.2-3.4) K/uL Total Abs Lymphocytes 1.36 (1.2-3.4) K/uL Monocytes # (Manual) 0.68 H (0.11-0.59) K/uL Metamyelocytes # (Man) 0.23 H (0-0) K/uL Myelocytes # (Manual) 0.68 H (0-0) K/uL Anisocytosis Present Tear Drop Cells 1+ Ovalocytes 1+ Echinocytes 1+ PT 11.5 (9.0-12.0) Seconds INR 1.1 (0.9-1.1) APTT 22 (21-31) Seconds PTT Ratio 0.8 VBG pH 7.38 (7.36-7.41) VBG pCO2 43 (38-50) mmHg VBG pO2 31 mmHg VBG HCO3 25 mmol/L VBG O2 Saturation < 60.0 % VBG Base Excess 0 mEq/L Sodium 132 L (136-145) mmol/L Potassium 3.8 (3.5-5.1) mmol/L Chloride 99 (98-107) mmol/L Carbon Dioxide 25 (21-32) mmol/L Anion Gap 8 (3-11) BUN 20 (6-23) mg/dl Creatinine 0.55 L (0.6-1.2) mg/dl Est Cr Clr Drug Dosing 119.6 ml/min Est GFR ( Amer) 125.0 ml/min Est GFR (Non-Af Amer) 107.8 ml/min BUN/Creatinine Ratio 36.4 H (10-20) Glucose 94 (70-99(Fasting)) mg/dl Lactate 1.5 (0.4-2.0) mmol/L Calcium 8.6 (8.6-10.3) mg/dl Magnesium 1.4 L (1.7-2.4) mg/dl Total Bilirubin 0.3 (0.2-1.0) mg/dl Direct Bilirubin 0.0 (0-0.2) mg/dl AST 12 L (13-39) U/L ALT 7 (7-52) U/L Alkaline Phosphatase 108 H (34-104) U/L Troponin I High Sens 20.2 H (0-14) pg/ml Total Protein 5.5 L (6.0-8.3) gm/dl Albumin 3.1 L (3.4-5.0) gm/dl Procalcitonin 0.25 (0-0.5) ng/ml Adenovirus (PCR) Not Detected (NotDetected) B. pertussis DNA (PCR) Not Detected (NotDetected) B.parapertussis DNA PCR Not Detected (NotDetected) C. pneumoniae DNA (PCR) Not Detected (NotDetected) Coronavirus OC43 (PCR) Not Detected (NotDetected) Coronavirus HKU1 (PCR) Not Detected (NotDetected) Coronavirus 229E (PCR) Not Detected (NotDetected) SARS-CoV-2 (PCR) Not Detected (NotDetected) Coronavirus NL63 (PCR) Not Detected (NotDetected) Human Metapneumovir PCR Not Detected (NotDetected) Influenza Type A (PCR) Not Detected (NotDetected) Influenza Type B (PCR) Not Detected (NotDetected) M. pneumoniae (PCR) Not Detected (NotDetected) Parainfluenza 1 (PCR) Not Detected (NotDetected) Parainfluenza 2 (PCR) Not Detected (NotDetected) Parainfluenza 3 (PCR) Not Detected (NotDetected) Parainfluenza 4 (PCR) Not Detected (NotDetected) RSV (PCR) Not Detected (NotDetected) Entero/Rhino (PCR) Not Detected (NotDetected) Blood Type O Positive Antibody Screen NEGATIVE Crossmatch See Detail Imaging Data Attestation: I personally reviewed and interpreted this imaging study as follows: My Impression: Chest x-ray: Bilateral lung infiltrates appear improved as compared to the previous chest x-ray on May 03, 2023. ECG Data Attestation: I personally reviewed and interpreted this ECG as follows: Rate (beats per minute): 124 Rhythm: sinus tachycardia Findings: no ST depression, no ST elevation or no prolonged QT MDM Narrative 2124: The patient was evaluated in room A2. A complete history and physical exam was performed Cardiac monitoring: An order was placed for continuous cardiac monitoring. The monitor shows a rate of 110 with sinus tachycardia rhythm interpreted by me Patient tachycardic and hypotensive. Sepsis protocols initiated. 2199: Vital signs improving with IV fluids. Lactic acid within normal limits. Received message from lab which shaves patient's hemoglobin of 6.8. Rectal exam performed with female nursing factory assembler Litzy at bedside. Hemoccult positive. Patient will be ordered 1 unit of packed red blood cells and be started on Protonix bolus and drip. 5: Vital signs improving with IV fluids. Labs show white blood cell count of 22.7 up from 12.132 days ago. Patient's VBG is within normal limits. Creatinine within normal limits. Magnesium 1.4, magnesium repletion will be started in the emergency department. High-sensitivity troponin 20.2. This thought to be due to demand ischemia secondary to patient's anemia. Chest x-ray viewed by me shows bilateral diffuse infiltrates although when compared to the previous chest x-ray from May 03, 2023 does appear improved significantly. Patient be treated with Zosyn and vancomycin. Will hold off on switching to IV Bactrim given the patient's chest x-ray does appear improved from a PCP pneumonia standpoint. 2328: Vital signs stable. Patient CT shows diffuse prominent gas and fluid distention of distal small bowel entire colon which is similar to the previous CT on April 25, 2023. [facility] hypomagnesemia and PCP pneumonia. Discussed the case with Dr. Melgar who states he will evaluate the patient for admission. Impression & Plan SBO (small bowel obstruction), PCP (pneumocystis jiroveci pneumonia), GIB (gastrointestinal bleeding) Critical Care Time Critical Care Time: Yes Total Critical Care Time: 90 I have personally spent greater than 90 minutes of critical care time in the direct management of this patient. This includes bedside care, interpretation of diagnostic studies, and testing, discussion with consultants, patient, and family members, and other required patient management activities. This 90 minutes is in excess of all separately billable procedures. Discharge Plan Visit Data Chief Complaint: Vomiting Stated Complaint: VOMITING, NAUSEA ED Provider: Juan Neely Discharge Problem: SBO (small bowel obstruction), PCP (pneumocystis jiroveci pneumonia), GIB (gastrointestinal bleeding) Patient Disposition: Admitted As Inpatient Discharge Instructions Interventions: ED Discharge Assessment Last Done: 05/10/23 01:20 Discharge Problem: PCP (pneumocystis jiroveci pneumonia) Qualifiers: Laterality: bilateral Lung location: unspecified part of lung Qualified Code(s): B59 - Pneumocystosis GIB (gastrointestinal bleeding) Qualifiers: GI bleed type/associated pathology: unspecified gastrointestinal hemorrhage type Qualified Code(s): K92.2 - Gastrointestinal hemorrhage, unspecified
--- NOTE | 2023-05-09 23:09 | CT Scan Report ---
Exam(s): CT ABDOMEN + PELVIS With Contrast IV Amt: 87 cc opti 320 EXAM: CT Abdomen and Pelvis With Intravenous Contrast CLINICAL HISTORY: abd pain nv. TECHNIQUE: Axial computed tomography images of the abdomen and pelvis with intravenous contrast. CTDI is 15.1 mGy and DLP is 766.81 mGy-cm. Automated exposure control was utilized for the study. A dose lowering technique was utilized adhering to the principles of ALARA. CONTRAST: Patient received 87 cc opti 320 of IV contrast COMPARISON: CT abdomen and pelvis with contrast dated 04/25/2023 FINDINGS: Lung bases: Extensive airspace consolidation involving the lower lungs, more prominent from the previous examination with similar areas of cavitation in several of the areas of consolidation. ABDOMEN: Liver: Unremarkable. No mass. Gallbladder and bile ducts: The gallbladder is not well delineated and is presumed completely decompressed. No ductal dilation. Pancreas: Unremarkable. No mass. No ductal dilation. Spleen: Unremarkable. No splenomegaly. Adrenals: Unremarkable. No mass. Kidneys and ureters: The right kidney remains atrophic. However, there is no prominent hydronephrosis with an abrupt transition at the UPJ. No obstructing ureteral stone noted in this area. Similar appearance of the left renal collecting system with the left kidney normal to slightly hypertrophic in size. No abnormal enhancement. Stomach and bowel: Diffuse prominent gas and fluid distention of the distal small bowel and the entire colon to the level of the mid to distal sigmoid, which is decompressed and demonstrates concentric mucosal thickening overlying to approximately 4.3 cm. This demonstrates a similar pattern to the previous CT examination. PELVIS: Appendix: No findings to suggest acute appendicitis. Bladder: Unremarkable. No mass. Reproductive: Unremarkable as visualized. ABDOMEN and PELVIS: Intraperitoneal space: Small volume perihepatic and perisplenic ascites. No loculation. No free air. Bones/joints: No acute osseous abnormality. No obvious metastatic lesions. Soft tissues: Subcutaneous edema noted involving the superficial soft tissues of the pelvis and proximal lower extremities. No loculated fluid collection. Vasculature: Bilateral iliac venous stents. The IVC is partially decompressed but is patent. No abdominal aortic aneurysm. Lymph nodes: Unremarkable. No enlarged lymph nodes. IMPRESSION: 1. Diffuse prominent gas and fluid distention of the distal small bowel and the entire colon to the level of the mid to distal sigmoid, which is decompressed and demonstrates concentric mucosal thickening overlying to approximately 4.3 cm. This demonstrates a similar pattern to the previous CT examination. Findings are most consistent with recurrent distal colonic obstruction. An underlying mass lesion is not excluded in the sigmoid colon. Jose syndrome with incidental contraction in the sigmoid colon is considered less likely. 2. Extensive airspace consolidation involving the lower lungs, more prominent from the previous examination with similar areas of cavitation in several of the areas of consolidation. Differential consideration includes persistent necrotizing pneumonia or necrotic metastatic disease. Please correlate with clinical history not provided. 3. Small volume perihepatic and perisplenic ascites. No loculation. 4. The right kidney remains atrophic. However, there is no prominent hydronephrosis with an abrupt transition at the UPJ. No obstructing ureteral stone noted in this area. Developing stenosis or functional obstruction may be present. Electronically signed by: Fabio Raphael MD 05/09/23 23:08 PM
[2023-05-09] MEDS: PANTOprazole 80 MG in DEXTROSE 5% 100 ML IV ONE (23:16)
[2023-05-09] MEDS ORDERED: SODIUM CHLORIDE 0.9% 1,000 ML IV SCH (23:30)
[2023-05-09] MEDS: PANTOPRAZOLE BOLUS/DRIP IV STA (23:40)
[2023-05-09] MEDS: MAGNESIUM SULFATE / D5W 1 GM/100 ML BAG IV STA (23:46)
[2023-05-09] MEDS: DEXAMETHASONE SOD INJ 4 MG/ML VIAL IV STA (23:50)
[2023-05-10] MEDS: NSS + 20MEQ KCL 20 MEQ/1,000 ML BAG IV STA (00:11)
--- NOTE | 2023-05-10 00:11 | History & Physical Report ---
Date of Service May 10, 2023 Assessment & Plan (1) Sepsis: Plan: Immunocompromised patient Chronic steroid Rx for Keytruda pneumonitis Possible sources: Bowel sepsis, recurrent SBO, hx chronic pain on fentanyl patch, hx metastatic cervical cancer status post surgery/radiation therapy, off chemotherapy HCAP Acute on chronic anemia secondary to epistaxis resulting in occult GI bleed, history internal hemorrhoids on colonoscopy last year, swallowed blood from epistaxis episode yesterday history DVT status post surgery on therapeutic Lovenox and Pletal Rx Hypotension secondary to illness possible adrenal insufficiency given chronic steroid Rx recent streptococcal bacteremia ongoing Augmentin Rx PJP/fungal pneumonia ongoing Bactrim and voriconazole Rx Anxiety disorder, patient slightly anxious on exam Medical telemetry IVF CS, Zosyn bowel rest, NGT decompression Judicious narcotic use given SBO General Surgery consult Re: Recurrent SBO (Patient already seen at the ER by provider. Urgent surgery contemplated.) Appropriate to hold anticoagulation for now given epistaxis and occult GI bleed resulting in hemoglobin drop from baseline Follow H&H, transfuse PRBC if hemoglobin less than 7 and or for symptomatic anemia GI consult if with overt GI bleed IVF, IV Decadron 1 dose now for possible adrenal insufficiency Hold home beta-rebel for now given borderline BP IV Solu-Medrol equivalent to daily home prednisone dose for now Inpatient palliative care consultation to discuss goals of care given recurrent admissions as per patient request DVT prophylaxis. SCDs Re: Occult GI bleed causing worsening anemia Full code Total critical care time was 45 minutes. Text document was generated using [employer] voice recognition software. It may contain grammatical or spelling errors. Kindly contact undersigned for clarification of any documentation item in question. History of Present Illness Chief Complaint: Abdominal pain, nausea, vomiting Primary Care Provider: Kristyn Brown MD History obtained from patient and records. Medical history significant for metastatic cervical cancer status post surgery/radiation therapy currently off chemotherapy, recent streptococcal bacteremia ongoing Augmentin Rx, PJP/fungal pneumonia ongoing Bactrim and voriconazole Rx, chronic steroid Rx for Keytruda pneumonitis, history DVT status post surgery on therapeutic Lovenox and Pletal Rx, chronic anemia (baseline hemoglobin of 8-9), chronic pain on fentanyl patch, internal hemorrhoids, anxiety disorder. Monthly admissions since January 2023 for recurrent bowel obstruction resolved with conservative management. Recent confinement April 25 to May 07, 2023 for sepsis secondary to group A streptococcus secondary to LLE cellulitis, PJP/fungal pneumonia, recurrent SBO. New medications on discharge as follows as per ID recommendations: Augmentin 875/125 streptococcal bacteremia 1 po bid to complete 4 week therapy (last dose 05/24/23) Bactrim DS 2 tabs po TID for PJP pneumonia (last dose 05/17/23) Voriconazole 200mg po BID (tentative last dose 06/09/23 ) or until seen by pulm or ID Pulmonary and ID follow-up, repeat CT chest recommended 2 weeks after discharge. Patient and made a decision to stop chemotherapy last week because they feel medication not working given recurrent admissions over the last 3 months. Follow-up appointment contemplated with oncologist from [facility]. Patient slated to see [facility] palliative care tomorrow to discuss goals of care. Last night, patient noted epistaxis episodes without headache complaints. Subsequent junky cough symptoms productive of white sputum mixed with blood. No unusual chest pain, SOB. Denies black/bloody stools. This morning, patient noted worsening achy generalized abdominal pain followed by nausea, bilious emesis. Consulted ER for evaluation. Initial SBP at the ER noted to be 90s. Heme positive brown stool documented at the ER. IV PPI, Zosyn administered at the ER. 1 unit packed RBC transfused at the ER. 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 Allergies Allergy/AdvReac Type Severity Reaction Status Date / Time cephalexin [From Keflex] Allergy Rash Verified 05/09/23 22:32 Home Medications Medication Instructions Recorded Confirmed Type cilostazol 50 mg tablet 50 mg PO BID 02/16/23 05/09/23 History cyclosporine 0.05 % eye drops in a 1 drp OPB BID 02/16/23 05/09/23 History dropperette (Restasis) fentanyl 12 mcg/hr transdermal 12 mcg transdermal Q72H 02/16/23 05/09/23 History patch gabapentin 100 mg capsule 200 mg PO BID 02/16/23 05/09/23 History melatonin 3 mg tablet 3 mg PO HS 02/16/23 05/09/23 History olanzapine 2.5 mg tablet 2.5 mg PO HS 02/16/23 05/09/23 History oxybutynin chloride 10 mg 10 mg PO PM 02/16/23 05/09/23 History tablet,extended release 24 hr polyethylene glycol 3350 17 gram 17 g PO DAILY 02/16/23 05/09/23 History oral powder packet (Miralax) varenicline 0.03 mg/spray nasal 1 spray intranasal BID 02/16/23 05/09/23 History spray (Tyrvaya) dronabinol 2.5 mg capsule 2.5 mg PO BID 03/28/23 05/09/23 History duloxetine 60 mg capsule,delayed 60 mg PO QAM 03/28/23 05/09/23 History release magnesium oxide 400 mg PO QAM 03/28/23 05/09/23 History sennosides 8.6 mg tablet (senna) 8.6 mg PO DAILY PRN Constipation 03/28/23 05/09/23 History dicyclomine 20 mg tablet 20 mg PO TID PRN Abdominal 04/25/23 05/09/23 History Discomfort potassium chloride 20 mEq 20 meq PO QAM 04/25/23 05/09/23 History tablet,extended release prednisone 20 mg tablet 40 mg PO QAM 04/25/23 05/09/23 History amoxicillin 875 mg-potassium 1 tab PO BIDM #34 tabs 05/07/23 05/09/23 Rx clavulanate 125 mg tablet enoxaparin 100 mg/mL subcutaneous 60 mg (0.6 mL) subcut BID #10 mL 05/07/23 05/09/23 Rx syringe hydrocodone-homatropine 5 mg-1.5 5 ml PO Q6H PRN cough #100 mL 05/07/23 05/09/23 Rx mg/5 mL oral syrup (Hydromet) lidocaine 5 % topical patch 1 patch transdermal QAM #30 ea 05/07/23 05/09/23 Rx magnesium oxide 400 mg (241.3 mg 400 mg PO BID #60 tabs 05/07/23 05/09/23 Rx magnesium) tablet metoprolol succinate 25 mg 12.5 mg (1/2 x 25 mg) PO QAM #15 05/07/23 05/09/23 Rx tablet,extended release 24 hr tabs pantoprazole 40 mg tablet,delayed 40 mg PO QAM #30 tabs 05/07/23 05/09/23 Rx release sulfamethoxazole 800 2 tab PO TID #60 tabs 05/07/23 05/09/23 Rx mg-trimethoprim 160 mg tablet (Bactrim DS) voriconazole 200 mg tablet (Vfend) 200 mg PO BID #66 tabs 05/07/23 05/09/23 Rx Past Med/Surg History Medical History PCP (pneumocystis jiroveci pneumonia) Acute hypoxemic respiratory failure Bacterial infection due to streptococcus, group A Immunocompromised patient SBO (small bowel obstruction) Chronic deep vein thrombosis (DVT) Primary cervical cancer with metastasis to other site Surgical History History of vascular surgery history bilateral lower extremity thrombectomy and stenting History of appendectomy History of hysterectomy Family History Father Cancer Other No significant family history Social History Smoking Status: Never smoker Hx Alcohol Use: No Hx Substance Use: No Preferred Language: Egyptian Communication Ability: Effective Synthetic [employer]il Blocks Pulper Required: No Beliefs That Will Affect Care: None marital status: Current Living Situation: Spouse current occupational status: disabled How many Children do You have: 0 Feels Safe at Home: Yes Assistive Devices: None Review of Systems Review of Systems: As per HPI, all other systems reviewed and negative Physical Exam Physical Exam: GENERAL: uncomfortable, anxious, chronically ill, no respiratory distress SKIN: Pallor, warm HEENT: Pale palpebral conjunctivae, no ptosis, dry buccal mucosa NECK : Supple, no tenderness CHEST : Decreased breath sounds, no tenderness HEART : Tachycardic, no obvious murmurs ABDOMEN: Marked abdominal distention, central abdominal tenderness EXTREMITIES : Minimal LE swelling, no LE tenderness, no other conspicuous deform ities noted NEUROLOGIC : Coherent, no facial asymmetry, no other gross focality Results & Data Results & Data Vital Signs (Past 12 Hours) Vital Signs Temp Pulse Resp BP Pulse Ox O2 Del Method O2 Flow Rate 05/09/23 23:45 36.6 C 111 H 20 111/76 97 4 05/09/23 23:30 36.6 C 107 H 18 106/70 97 4 05/09/23 23:11 36.4 C L 112 H 14 109/76 95 4 05/09/23 22:15 118 H 18 116/74 95 05/09/23 22:00 121 H 18 109/69 96 05/09/23 22:00 96 Nasal Cannula 4 05/09/23 21:45 122 H 26 H 96/77 L 94 05/09/23 21:30 124 H 26 H 93 05/09/23 21:16 36.6 C 122 H 20 96/70 L 94 Nasal Cannula 6 05/09/23 21:15 123 H 24 95 05/09/23 21:15 123 H Laboratory Results Laboratory Results WBC 22.70 K/ul (4.8-10.8) H 05/09/23 21:38 RBC 2.87 M/uL (4.20-5.40) L 05/09/23 21:38 Hgb 6.8 g/dl (12.0-16.0) L* 05/09/23 21:38 Hct 22.0 % (37.0-47.0) L 05/09/23 21:38 MCV 76.7 fL (80.0-100.0) L 05/09/23 21:38 MCH 23.7 pg (25.0-34.0) L 05/09/23 21:38 MCHC 30.9 g/dL (32.0-36.0) L 05/09/23 21:38 RDW Std Deviation 61.3 fL (36.4-46.3) H 05/09/23 21:38 RDW Coeff of Luis 23.9 % (11.5-14.5) H 05/09/23 21:38 Plt Count 600 K/uL (130-400) H 05/09/23 21:38 MPV 9.5 fL (9.4-12.4) 05/09/23 21:38 Absolute Nucleated RBC 1.22 K/uL (0.00-0.12) H 05/09/23 21:38 Nucleated RBC % (auto) 5.4 % 05/09/23 21:38 Neutrophils % (Manual) 87 % 05/09/23 21:38 Lymphocytes % (Manual) 6 % 05/09/23 21:38 Monocytes % (Manual) 3 % 05/09/23 21:38 Metamyelocytes % (Man) 1 % 05/09/23 21:38 Myelocytes % (Man) 3 % 05/09/23 21:38 Neutrophils # (Manual) 19.75 K/uL (1.40-6.50) H 05/09/23 21:38 Total Absolute Neuts 19.75 K/uL (1.4-6.5) H 05/09/23 21:38 Lymphocytes # (Manual) 1.36 K/uL (1.2-3.4) 05/09/23 21:38 Total Abs Lymphocytes 1.36 K/uL (1.2-3.4) 05/09/23 21:38 Monocytes # (Manual) 0.68 K/uL (0.11-0.59) H 05/09/23 21:38 Metamyelocytes # (Man) 0.23 K/uL (0-0) H 05/09/23 21:38 Myelocytes # (Manual) 0.68 K/uL (0-0) H 05/09/23 21:38 Anisocytosis Present 05/09/23 21:38 Tear Drop Cells 1+ 05/09/23 21:38 Ovalocytes 1+ 05/09/23 21:38 Echinocytes 1+ 05/09/23 21:38 PT 11.5 Seconds (9.0-12.0) 05/09/23 21:38 INR 1.1 (0.9-1.1) 05/09/23 21:38 APTT 22 Seconds (21-31) 05/09/23 21:38 PTT Ratio 0.8 05/09/23 21:38 VBG pH 7.38 (7.36-7.41) 05/09/23 21:38 VBG pCO2 43 mmHg (38-50) 05/09/23 21:38 VBG pO2 31 mmHg 05/09/23 21:38 VBG HCO3 25 mmol/L 05/09/23 21:38 VBG O2 Saturation < 60.0 % 05/09/23 21:38 VBG Base Excess 0 mEq/L 05/09/23 21:38 Sodium 132 mmol/L (136-145) L 05/09/23 21:38 Potassium 3.8 mmol/L (3.5-5.1) 05/09/23 21:38 Chloride 99 mmol/L (98-107) 05/09/23 21:38 Carbon Dioxide 25 mmol/L (21-32) 05/09/23 21:38 Anion Gap 8 (3-11) 05/09/23 21:38 BUN 20 mg/dl (6-23) 05/09/23 21:38 Creatinine 0.55 mg/dl (0.6-1.2) L 05/09/23 21:38 Est Cr Clr Drug Dosing 119.6 ml/min 05/09/23 21:38 Est GFR ( Amer) 125.0 ml/min 05/09/23 21:38 Est GFR (Non-Af Amer) 107.8 ml/min 05/09/23 21:38 BUN/Creatinine Ratio 36.4 (10-20) H 05/09/23 21:38 Glucose 94 mg/dl (70-99(Fasting)) 05/09/23 21:38 Lactate 1.5 mmol/L (0.4-2.0) 05/09/23 21:38 Calcium 8.6 mg/dl (8.6-10.3) 05/09/23 21:38 Magnesium 1.4 mg/dl (1.7-2.4) L 05/09/23 21:38 Total Bilirubin 0.3 mg/dl (0.2-1.0) 05/09/23 21:38 Direct Bilirubin 0.0 mg/dl (0-0.2) 05/09/23 21:38 AST 12 U/L (13-39) L 05/09/23 21:38 ALT 7 U/L (7-52) 05/09/23 21:38 Alkaline Phosphatase 108 U/L (34-104) H 05/09/23 21:38 Troponin I High Sens 20.2 pg/ml (0-14) H 05/09/23 21:38 Total Protein 5.5 gm/dl (6.0-8.3) L 05/09/23 21:38 Albumin 3.1 gm/dl (3.4-5.0) L 05/09/23 21:38 Procalcitonin 0.25 ng/ml (0-0.5) 05/09/23 21:38 Adenovirus (PCR) Not Detected (NotDetected) 05/09/23 21:35 B. pertussis DNA (PCR) Not Detected (NotDetected) 05/09/23 21:35 B.parapertussis DNA PCR Not Detected (NotDetected) 05/09/23 21:35 C. pneumoniae DNA (PCR) Not Detected (NotDetected) 05/09/23 21:35 Coronavirus OC43 (PCR) Not Detected (NotDetected) 05/09/23 21:35 Coronavirus HKU1 (PCR) Not Detected (NotDetected) 05/09/23 21:35 Coronavirus 229E (PCR) Not Detected (NotDetected) 05/09/23 21:35 SARS-CoV-2 (PCR) Not Detected (NotDetected) 05/09/23 21:35 Coronavirus NL63 (PCR) Not Detected (NotDetected) 05/09/23 21:35 Human Metapneumovir PCR Not Detected (NotDetected) 05/09/23 21:35 Influenza Type A (PCR) Not Detected (NotDetected) 05/09/23 21:35 Influenza Type B (PCR) Not Detected (NotDetected) 05/09/23 21:35 M. pneumoniae (PCR) Not Detected (NotDetected) 05/09/23 21:35 Parainfluenza 1 (PCR) Not Detected (NotDetected) 05/09/23 21:35 Parainfluenza 2 (PCR) Not Detected (NotDetected) 05/09/23 21:35 Parainfluenza 3 (PCR) Not Detected (NotDetected) 05/09/23 21:35 Parainfluenza 4 (PCR) Not Detected (NotDetected) 05/09/23 21:35 RSV (PCR) Not Detected (NotDetected) 05/09/23 21:35 Entero/Rhino (PCR) Not Detected (NotDetected) 05/09/23 21:35 Blood Type O Positive 05/09/23 21:41 Antibody Screen NEGATIVE 05/09/23 21:41 Crossmatch See Detail 05/09/23 21:41 Impressions Abdomen/Pelvis CT 05/09/23 21:28 Exam(s): CT ABDOMEN + PELVIS With Contrast IV Amt: 87 cc opti 320 EXAM: CT Abdomen and Pelvis With Intravenous Contrast CLINICAL HISTORY: abd pain nv. TECHNIQUE: Axial computed tomography images of the abdomen and pelvis with intravenous contrast. CTDI is 15.1 mGy and DLP is 766.81 mGy-cm. Automated exposure control was utilized for the study. A dose lowering technique was utilized adhering to the principles of ALARA. CONTRAST: Patient received 87 cc opti 320 of IV contrast COMPARISON: CT abdomen and pelvis with contrast dated 04/25/2023 FINDINGS: Lung bases: Extensive airspace consolidation involving the lower lungs, more prominent from the previous examination with similar areas of cavitation in several of the areas of consolidation. ABDOMEN: Liver: Unremarkable. No mass. Gallbladder and bile ducts: The gallbladder is not well delineated and is presumed completely decompressed. No ductal dilation. Pancreas: Unremarkable. No mass. No ductal dilation. Spleen: Unremarkable. No splenomegaly. Adrenals: Unremarkable. No mass. Kidneys and ureters: The right kidney remains atrophic. However, there is no prominent hydronephrosis with an abrupt transition at the UPJ. No obstructing ureteral stone noted in this area. Similar appearance of the left renal collecting system with the left kidney normal to slightly hypertrophic in size. No abnormal enhancement. Stomach and bowel: Diffuse prominent gas and fluid distention of the distal small bowel and the entire colon to the level of the mid to distal sigmoid, which is decompressed and demonstrates concentric mucosal thickening overlying to approximately 4.3 cm. This demonstrates a similar pattern to the previous CT examination. PELVIS: Appendix: No findings to suggest acute appendicitis. Bladder: Unremarkable. No mass. Reproductive: Unremarkable as visualized. ABDOMEN and PELVIS: Intraperitoneal space: Small volume perihepatic and perisplenic ascites. No loculation. No free air. Bones/joints: No acute osseous abnormality. No obvious metastatic lesions. Soft tissues: Subcutaneous edema noted involving the superficial soft tissues of the pelvis and proximal lower extremities. No loculated fluid collection. Vasculature: Bilateral iliac venous stents. The IVC is partially decompressed but is patent. No abdominal aortic aneurysm. Lymph nodes: Unremarkable. No enlarged lymph nodes. IMPRESSION: 1. Diffuse prominent gas and fluid distention of the distal small bowel and the entire colon to the level of the mid to distal sigmoid, which is decompressed and demonstrates concentric mucosal thickening overlying to approximately 4.3 cm. This demonstrates a similar pattern to the previous CT examination. Findings are most consistent with recurrent distal colonic obstruction. An underlying mass lesion is not excluded in the sigmoid colon. [place] syndrome with incidental contraction in the sigmoid colon is considered less likely. 2. Extensive airspace consolidation involving the lower lungs, more prominent from the previous examination with similar areas of cavitation in several of the areas of consolidation. Differential consideration includes persistent necrotizing pneumonia or necrotic metastatic disease. Please correlate with clinical history not provided. 3. Small volume perihepatic and perisplenic ascites. No loculation. 4. The right kidney remains atrophic. However, there is no prominent hydronephrosis with an abrupt transition at the UPJ. No obstructing ureteral stone noted in this area. Developing stenosis or functional obstruction may be present. Electronically signed by: Fabio Raphael MD 05/09/23 23:08 PM Diagnostic Findings Chest x-ray as per my interpretation showed bilateral infiltrates/consolidation similar to previous EKG as per my interpretation : Rate 125, sinus tachycardia, RAD, T wave abnormalities inferior leads (1) Sepsis Acute respiratory failure type: with hypoxia Sepsis acute organ dysfunction status: with acute organ dysfunction Sepsis type: sepsis due to unspecified organism Severe sepsis acute organ dysfunction type: acute respiratory failure Severe sepsis shock status: without septic shock Qualified Code(s): A41.9 - Sepsis, unspecified organism; R65.20 - Severe sepsis without septic shock; J96.01 - Acute respiratory failure with hypoxia
[2023-05-10] MEDS ORDERED: ACETAMINOPHEN 1,000 MG/100 ML VIAL IV PRN (00:21)
--- NOTE | 2023-05-10 00:35 | Surgery Consultation ---
Date of Consultation May 10, 2023 Assessment & Plan (1) Abdominal pain, generalized: I discussed with the treating emergency room physician the patient is being admitted on the hospitalist service. From surgical perspective we recommend the following: Implement/maintain n.p.o. status Provide hydration with intravenous fluids Provide analgesics Provide antiemetics As noted in the HPI the patient was previously offered a venting G-tube but due to other concomitant illnesses this had to be delayed until an adequate recovery was made. At the present time the patient does not appear fit for a trip to the operating room for such modality. I discussed with the admitting service and they have ordered an NG tube which I agree with. Once NG tube was placed this should be maintained until patient's abdominal exam improves and she has return of bowel function Follow serial labs Would recommend continuing use of antibiotics to the patient's noted pneumonia. The hospitalist has indicated that they are placing the patient on Zosyn Would recommend transfusing patient secondary to suspected GI bleed as she was noted to have heme positive stools. First unit of blood has already been ordered by the treating clinician in the emergency department I did discuss with the hospitalist and he notes that the patient was supposed to see palliative care as an outpatient today. He will asked them to evaluate the patient while she is hospitalized. The patient will be subsequent evaluated by my attending physician Dr. Solorio we will make additional recommendations concerning treatment of patient's recurrent obstructions. Supervising Physician Co-Signing Physician Notes I have seen and examined this patient with the surgical PA. The patient will be taken to the OR for open urgent decompression, ostomy and all other indicated procedures. History of Present Illness History of Present Illness This is a 52-year-old female who is well-known to [facility] group general surgery. This patient has an underlying history of metastatic cervical cancer for which she has undergone a radical hysterectomy in 2013 with a concomitant appendectomy. She underwent pelvic radiation in 2017. Since these modalities the patient has had multiple small bowel obstructions that have been treated successfully with conservative measures. Her most recent admission was from 04/25/2023 through 05/08/2023. During this admission the patient was noted to have small bowel obstruction which was again treated in a conservative manner. Due to the recurrent nature of her small bowel obstruction she was offered a venting G-tube by general surgery. This modality was not performed however as the patient developed sepsis from gram-negative bacteremia and pneumonia. It was felt that patient would require recovery from this illness prior to her undergoing any type of surgical intervention. Patient notes that she was discharged only 2 days ago and was initially doing well however earlier today she developed some generalized abdominal pain, increased abdominal distention, along with nausea and vomiting. To the best of her knowledge the patient has not had any hematemesis. She notes that she did have a bowel movement just prior to the ambulance bringing her to the hospital but she could not comment on whether it was melanotic appearing or not. She did not report any bright red blood per rectum. She denies any fevers, shakes, or chills. Since arrival to the hospital today the patient has had labs and imaging which independent reviewed. On chest x-ray the patient had bilateral airspace opacities concerning for pneumonia. When compared to her chest x-ray on 05/03/2023 there does appear to be some improvement of this. A CT scan of the abdomen pelvis was performed that showed diffuse gas and fluid distention of the distal small bowel and the entire colon to the level of the distal sigmoid colon. At the level of sigmoid colon there appeared to be some decompression which was noted be similar to prior CT scan examinations. This is felt to be consistent with a distal colonic obstruction. An underlying mass lesion is unable to be excluded. On CT scan of the chest extensive airspace consolidations involving the lower lungs are noted. Labs include a CBC were white blood cell count is 22.7. Hemoglobin and hematocrit are 6.8 and 22.0. Platelet count is 600,000. Coagulation studies are normal. Chemistry profile showed sodium was 132 with a normal potassium. BUN and creatinine are 20 and 0.5. Lactic acid level is nonelevated. Magnesium is 1.4. Patient did have a bio fire panel which was negative for all viruses tested. At the time of my interview the patient appeared somewhat uncomfortable she was in no distress. Allergies Allergy/AdvReac Type Severity Reaction Status Date / Time cephalexin [From Keflex] Allergy Rash Verified 05/09/23 22:32 Home Medications Medication Instructions Recorded Confirmed Type cilostazol 50 mg tablet 50 mg PO BID 02/16/23 05/09/23 History cyclosporine 0.05 % eye drops in a 1 drp OPB BID 02/16/23 05/09/23 History dropperette (Restasis) fentanyl 12 mcg/hr transdermal 12 mcg transdermal Q72H 02/16/23 05/09/23 History patch gabapentin 100 mg capsule 200 mg PO BID 02/16/23 05/09/23 History melatonin 3 mg tablet 3 mg PO HS 02/16/23 05/09/23 History olanzapine 2.5 mg tablet 2.5 mg PO HS 02/16/23 05/09/23 History oxybutynin chloride 10 mg 10 mg PO PM 02/16/23 05/09/23 History tablet,extended release 24 hr polyethylene glycol 3350 17 gram 17 g PO DAILY 02/16/23 05/09/23 History oral powder packet (Miralax) varenicline 0.03 mg/spray nasal 1 spray intranasal BID 02/16/23 05/09/23 History spray (Tyrvaya) dronabinol 2.5 mg capsule 2.5 mg PO BID 03/28/23 05/09/23 History duloxetine 60 mg capsule,delayed 60 mg PO QAM 03/28/23 05/09/23 History release magnesium oxide 400 mg PO QAM 03/28/23 05/09/23 History sennosides 8.6 mg tablet (senna) 8.6 mg PO DAILY PRN Constipation 03/28/23 05/09/23 History dicyclomine 20 mg tablet 20 mg PO TID PRN Abdominal 04/25/23 05/09/23 History Discomfort potassium chloride 20 mEq 20 meq PO QAM 04/25/23 05/09/23 History tablet,extended release prednisone 20 mg tablet 40 mg PO QAM 04/25/23 05/09/23 History amoxicillin 875 mg-potassium 1 tab PO BIDM #34 tabs 05/07/23 05/09/23 Rx clavulanate 125 mg tablet enoxaparin 100 mg/mL subcutaneous 60 mg (0.6 mL) subcut BID #10 mL 05/07/23 05/09/23 Rx syringe hydrocodone-homatropine 5 mg-1.5 5 ml PO Q6H PRN cough #100 mL 05/07/23 05/09/23 Rx mg/5 mL oral syrup (Hydromet) lidocaine 5 % topical patch 1 patch transdermal QAM #30 ea 05/07/23 05/09/23 Rx magnesium oxide 400 mg (241.3 mg 400 mg PO BID #60 tabs 05/07/23 05/09/23 Rx magnesium) tablet metoprolol succinate 25 mg 12.5 mg (1/2 x 25 mg) PO QAM #15 05/07/23 05/09/23 Rx tablet,extended release 24 hr tabs pantoprazole 40 mg tablet,delayed 40 mg PO QAM #30 tabs 05/07/23 05/09/23 Rx release sulfamethoxazole 800 2 tab PO TID #60 tabs 05/07/23 05/09/23 Rx mg-trimethoprim 160 mg tablet (Bactrim DS) voriconazole 200 mg tablet (Vfend) 200 mg PO BID #66 tabs 05/07/23 05/09/23 Rx Patient History Medical History PCP (pneumocystis jiroveci pneumonia) Acute hypoxemic respiratory failure Bacterial infection due to streptococcus, group A Immunocompromised patient SBO (small bowel obstruction) Chronic deep vein thrombosis (DVT) Primary cervical cancer with metastasis to other site Surgical History History of vascular surgery history bilateral lower extremity thrombectomy and stenting History of appendectomy History of hysterectomy Family History Father Cancer Other No significant family history Social History Smoking Status: Never smoker Hx Alcohol Use: No Hx Substance Use: No Preferred Language: Vietnamese Communication Ability: Effective Air Chipper Required: No Beliefs That Will Affect Care: None marital status: Current Living Situation: Spouse current occupational status: disabled How many Children do You have: 0 Feels Safe at Home: Yes Assistive Devices: Cane Review of Systems Constitutional: no fever and no chills Ear, Nose, Mouth, Throat: no hearing loss Respiratory: + cough and + dyspnea Cardiovascular: no chest pain Gastrointestinal: as per Subjective / HPI Genitourinary: no dysuria Musculoskeletal: no back pain Integumentary: no rash Neurologic: no localized weakness Physical Exam Constitutional: WD/WN, vitals as above Eyes: no conjunctival abnormality ENMT: Ears: no hearing impairment and no external ear abnormality Mouth: no oropharynx abnormality Neck: trachea midline Respiratory: Patient was not using accessory muscles to aid in respiration. Breath sounds were slightly decreased at bases with rhonchi noted. Cardiovascular: Rate/Rhythm: regular rate, regular rhythm and + tachycardic Gastrointestinal (Abdomen): There is no rebound tenderness or guarding with patient and generalized pain with palpation throughout her abdomen. Her abdomen was moderately distended and tympanic to percussion. A rectal examination was performed by the treating emergency room physician and was noted to be heme positive Musculoskeletal: No calf tenderness Skin: no rashes Neurologic: moves all extremities Psychiatric: A+Ox3, euthymic affect Results & Data Vital Signs (Past 12 Hours) Vital Signs Temp Pulse Resp BP Pulse Ox O2 Del Method O2 Flow Rate 05/10/23 00:15 36.6 C 112 H 20 107/70 96 4 05/09/23 23:45 36.6 C 111 H 20 111/76 97 4 05/09/23 23:30 36.6 C 107 H 18 106/70 97 4 05/09/23 23:11 36.4 C L 112 H 14 109/76 95 4 05/09/23 22:15 118 H 18 116/74 95 05/09/23 22:00 121 H 18 109/69 96 05/09/23 22:00 96 Nasal Cannula 4 05/09/23 21:45 122 H 26 H 96/77 L 94 05/09/23 21:30 124 H 26 H 93 05/09/23 21:16 36.6 C 122 H 20 96/70 L 94 Nasal Cannula 6 05/09/23 21:15 123 H 24 95 05/09/23 21:15 123 H PG Care Time/CCT Total # of Minutes Spent Total Time Spent with Patient: Total time spent is greater than 50% in coordination of care (as documented) at patient's floor/unit and/or counseling patient: Coding Level of Care Code 42122 IN/OBS CONSULT LVL 5,80M Diagnoses Abdominal pain, generalized R10.84
[2023-05-10] MEDS ORDERED: SENNA 8.6 MG TAB PO PRN (01:19)
[2023-05-10] MEDS: PROMETHAZINE 6.25 MG/50.25 ML BAG IV STA (01:20)
[2023-05-10 01:23] LABS: Appearance Urine Turbid (Clear); Bacteria Urine Automated Negative (Negative); Bilirubin Urine Negative (Negative); Blood Urine 3+ (Negative); Color Urine Yellow; Glucose Urine UA Negative (Negative); Ketones Urine Negative (Negative); Leukocyte Esterase Urine Negative (Negative); Nitrite Urine Negative (Negative); Protein Urine Negative (Negative); RBC Urine Automated >30 /hpf (0-4); Specific Gravity Urine 1.036 (1.000-1.030); Urobilinogen Urine Negative (Negative); pH Urine 7.5 (4.5-7.5)
[2023-05-10] MEDS ORDERED: ARTIFICIAL TEARS OP PRN (01:36)
[2023-05-10] MEDS: MAGNESIUM SULFATE / D5W 1 GM/100 ML BAG IV SCH (01:45)
[2023-05-10] MEDS: VANCOMYCIN HCL 1,500 MG in SODIUM CHLORIDE 0.9% 500 ML IV ONE (02:30)
[2023-05-10] MEDS: PANTOprazole 40 MG in DEXTROSE 5% MINI-B 100 ML IV SCH (02:30)
[2023-05-10] MEDS ORDERED: SODIUM CHLORIDE 0.9% 250 ML IV PRN ×2 (02:44→21:25)
[2023-05-10] MEDS ORDERED: ROCURONIUM BROMIDE 10 MG/ML 5 ML VIAL IV ONE (03:08)
[2023-05-10] MEDS ORDERED: PROPOFOL IV EMULSION 10 MG/ML 20 ML VIAL IV ONE (03:08)
[2023-05-10] MEDS ORDERED: LIDOCAINE 2% 2 ML VIAL/AMP(20MG/ML) INFIL ONE (03:09)
[2023-05-10] MEDS ORDERED: fentaNYL citrate PF 100 MCG/2 ML VIAL ONE (03:09)
[2023-05-10] MEDS ORDERED: ONDANSETRON INJ 2 MG/ML 2 ML VIAL ONE (03:09)
[2023-05-10] MEDS ORDERED: MIDAZOLAM HCL 1 MG/ML 2ML VIAL ONE (03:10)
--- NOTE | 2023-05-10 03:25 | Anesthesiology Consultation ---
Date of Service May 10, 2023 Assessment & Plan Chart Review Chart Review: Acceptable Risk for Surgery Consults Requested none History Surgery Operation Date: 05/10/23 03:30 Proposed Procedures p Bowel Resection - Agustin Elmore DO Height/Weight Height: 5 ft 4 in Weight: 76.3 kg Allergies Allergy/AdvReac Type Severity Reaction Status Date / Time cephalexin [From Keflex] Allergy Rash Verified 05/09/23 22:32 Medications Home Medications Medication Instructions Recorded Confirmed Last Taken cilostazol 50 mg tablet 50 mg PO BID 02/16/23 05/09/23 05/09/23 08:00 cyclosporine 0.05 % eye drops in a 1 drp OPB BID 02/16/23 05/09/23 05/09/23 08:00 dropperette (Restasis) fentanyl 12 mcg/hr transdermal 12 mcg transdermal Q72H 02/16/23 05/09/23 04/22/23 patch due now gabapentin 100 mg capsule 200 mg PO BID 02/16/23 05/09/23 05/09/23 08:00 melatonin 3 mg tablet 3 mg PO HS 02/16/23 05/09/23 05/08/23 olanzapine 2.5 mg tablet 2.5 mg PO HS 02/16/23 05/09/23 05/08/23 oxybutynin chloride 10 mg 10 mg PO PM 02/16/23 05/09/23 05/08/23 tablet,extended release 24 hr polyethylene glycol 3350 17 gram 17 g PO DAILY 02/16/23 05/09/23 05/09/23 oral powder packet (Miralax) varenicline 0.03 mg/spray nasal 1 spray intranasal BID 02/16/23 05/09/23 05/09/23 08:00 spray (Tyrvaya) dronabinol 2.5 mg capsule 2.5 mg PO BID 03/28/23 05/09/23 05/09/23 08:00 duloxetine 60 mg capsule,delayed 60 mg PO QAM 03/28/23 05/09/23 05/09/23 release magnesium oxide 400 mg PO QAM 03/28/23 05/09/23 05/09/23 sennosides 8.6 mg tablet (senna) 8.6 mg PO DAILY PRN Constipation 03/28/23 05/09/23 Unknown dicyclomine 20 mg tablet 20 mg PO TID PRN Abdominal 04/25/23 05/09/23 Unknown Discomfort potassium chloride 20 mEq 20 meq PO QAM 04/25/23 05/09/23 05/09/23 tablet,extended release prednisone 20 mg tablet 40 mg PO QAM 04/25/23 05/09/23 05/09/23 amoxicillin 875 mg-potassium 1 tab PO BIDM #34 tabs 05/07/23 05/09/23 05/09/23 08:00 clavulanate 125 mg tablet enoxaparin 100 mg/mL subcutaneous 60 mg (0.6 mL) subcut BID #10 mL 05/07/23 05/09/23 05/09/23 08:00 syringe hydrocodone-homatropine 5 mg-1.5 5 ml PO Q6H PRN cough #100 mL 05/07/23 05/09/23 Unknown mg/5 mL oral syrup (Hydromet) lidocaine 5 % topical patch 1 patch transdermal QAM #30 ea 05/07/23 05/09/23 05/09/23 magnesium oxide 400 mg (241.3 mg 400 mg PO BID #60 tabs 05/07/23 05/09/23 05/09/23 08:00 magnesium) tablet metoprolol succinate 25 mg 12.5 mg (1/2 x 25 mg) PO QAM #15 05/07/23 05/09/23 05/09/23 tablet,extended release 24 hr tabs pantoprazole 40 mg tablet,delayed 40 mg PO QAM #30 tabs 05/07/23 05/09/23 05/09/23 release sulfamethoxazole 800 2 tab PO TID #60 tabs 05/07/23 05/09/23 05/09/23 08:00 mg-trimethoprim 160 mg tablet (Bactrim DS) voriconazole 200 mg tablet (Vfend) 200 mg PO BID #66 tabs 05/07/23 05/09/23 05/09/23 08:00 Active Medications Generic Name Dose Route Start Last Admin Trade Name Freq PRN Reason Stop Dose Admin Magnesium Sulfate/Dextrose 1 gm in 100 mls @ 50 mls/hr 05/09/23 23:30 05/10/23 03:01 Magnesium Sulfate / D5w IV 05/10/23 03:29 50 mls/hr Q2H SAE Administration Potassium Chloride/Sodium Chloride 20 meq in 1,000 mls @ 75 mls/hr 05/09/23 23:24 05/10/23 00:11 Normal Saline W/20 Meq Kcl IV 05/10/23 12:43 75 mls/hr .[id number] STA Administration Protocol Past Medical History Medical History PCP (pneumocystis jiroveci pneumonia) Acute hypoxemic respiratory failure Bacterial infection due to streptococcus, group A Immunocompromised patient SBO (small bowel obstruction) Chronic deep vein thrombosis (DVT) Primary cervical cancer with metastasis to other site Past Family History Family History Father Cancer Other No significant family history Past Surgical History Surgical History History of vascular surgery history bilateral lower extremity thrombectomy and stenting History of appendectomy History of hysterectomy Social History Smoking Status: Never smoker Hx Alcohol Use: No Hx Substance Use: No substance use type: former substance user Physical Exam Vital Signs Last Vital Signs Temp 36.6 C 05/10/23 02:10 Pulse 111 H 05/10/23 03:00 Resp 17 05/10/23 03:00 BP 121/84 05/10/23 03:00 Pulse Ox 96 05/10/23 03:04 O2 Del Method Nasal Cannula 05/10/23 03:04 O2 Flow Rate 4 05/10/23 03:04 Testing Laboratory Results 05/09/23 21:38 05/09/23 21:38 PT 11.5 Seconds (9.0-12.0) 05/09/23 21:38 INR 1.1 (0.9-1.1) 05/09/23 21:38 APTT 22 Seconds (21-31) 05/09/23 21:38 Urine Color Yellow 05/10/23 00:55 Urine Appearance Turbid (Clear) A 05/10/23 00:55 Urine pH 7.5 (4.5-7.5) 05/10/23 00:55 Ur Specific Wilson 1.036 (1.000-1.030) H 05/10/23 00:55 Urine Protein Negative (Negative) 05/10/23 00:55 Urine Glucose (UA) Negative (Negative) 05/10/23 00:55 Urine Ketones Negative (Negative) 05/10/23 00:55 Urine Nitrite Negative (Negative) 05/10/23 00:55 Ur Leukocyte Esterase Negative (Negative) 05/10/23 00:55 Urine WBC (Auto) 1-5 /hpf (0-5) 05/10/23 00:55 Urine RBC (Auto) >30 /hpf (0-4) H 05/10/23 00:55 U Hyaline Cast (Auto) 1-5 /lpf (0-5) 05/10/23 00:55 U Epithel Cells (Auto) 10-20 /lpf (0-5) H 05/10/23 00:55 Urine Bacteria (Auto) Negative (Negative) 05/10/23 00:55 Blood Type O Positive 05/09/23 21:41 Antibody Screen NEGATIVE 05/09/23 21:41
[2023-05-10 03:54] LABS: Albumin Globulin Ratio 1.2 (0.9-2); Albumin Level 2.8 gm/dl (3.4-5.0); BUN Creatinine Ratio 42.9 (10-20); Bilirubin,Total 0.3 mg/dl (0.2-1.0); Calcium 7.9 mg/dl (8.6-10.3); Creatinine Clr Calc Pharmacy 156.7 ml/min; Est GFR (African American) 136.6 ml/min; Est GFR (Non-African American) 117.8 ml/min; Globulin 2.3 gm/dl (2.5-4.0); Magnesium 2.2 mg/dl (1.7-2.4); Potassium 3.5 mmol/L (3.5-5.1); Total Protein 5.1 gm/dl (6.0-8.3)
[2023-05-10 04:06] LABS: Anisocytosis Present; Basophils # (auto) 0.08 K/uL (0.00-0.20); Basophils % (auto) 0.4 %; Echinocytes 1+; Eosinophils # (auto) 0.04 K/uL (0.00-0.50); Eosinophils % (auto) 0.2 %; Hematocrit (blood only) 25.4 % (37.0-47.0); Immature Granulocytes # (auto) 1.83 K/uL (0.01-0.20); Lymphocytes # (auto) 0.39 K/uL (1.20-3.40); Lymphocytes % (auto) 2.1 %; Mean Corpuscular Hemoglobin 25.4 pg (25.0-34.0); Mean Corpuscular Hgb Conc 31.5 g/dL (32.0-36.0); Mean Corpuscular Volume 80.6 fL (80.0-100.0); Mean Platelet Volume 9.1 fL (9.4-12.4); Monocytes # (auto) 0.53 K/uL (0.11-0.59); Monocytes % (auto) 2.9 %; Neutrophils # (auto) 15.37 K/uL (1.40-6.50); Neutrophils % (auto) 84.4 %; Nucleated RBC # (auto) 0.58 K/uL (0.00-0.12); Nucleated RBC % (auto) 3.2 %; Ovalocytes 1+; Platelet Count 472 K/uL (130-400); Polychromasia 1+; RDW Coefficient of Variation 23.1 % (11.5-14.5); RDW Standard Deviation 63.2 fL (36.4-46.3); Red Blood Count 3.15 M/uL (4.20-5.40); Tear Drop Cells 1+; White Blood Count 18.24 K/ul (4.8-10.8)
[2023-05-10 04:10] LABS: Thyroid Stimulating Hormone 2.012 uIu/ml (0.300-4.500)
[2023-05-10] MEDS ORDERED: ePHEDrine sulfate 50 MG/ML AMP IV PRN (04:26)
[2023-05-10] MEDS ORDERED: ATROPINE SULFATE 0.1 MG/ML 10ML SYR IV PRN (04:26)
[2023-05-10] MEDS ORDERED: PROMETHAZINE HCL 12.5 MG in SODIUM CHLORIDE 0.9% 50 ML IV PRN (04:26)
[2023-05-10] MEDS ORDERED: HYDROmorphone INJ 2 MG/ML SYR/VIAL IV PRN (04:26)
[2023-05-10] MEDS: BUPIVACAINE/EPINEPHRINE 0.5% MPF 1:200,000 30 ML VIAL ONE (05:05)
[2023-05-10] MEDS ORDERED: GLYCOPYRROLATE 0.2 MG/ML VIAL ONE (05:20)
[2023-05-10] MEDS ORDERED: NEOSTIGMINE METHYLSULFATE 1 MG/ML 10ML VIAL ONE (05:20)
--- NOTE | 2023-05-10 05:24 | Operative Report ---
[facility] Post Operative Report Pre & Post Diagnosis Operation Date: 05/10/23 03:30 <No data on this case meets the specified criteria> I identified the patient and participated in the time-out.: Yes Procedure Operation Date: 05/10/23 03:30 <No data on this case meets the specified criteria> Surgeon Agustin Elmore DO Wired Music Operator VIDAL Paez Estimated Blood Loss 5 Findings See Below Distended colon without evidence for free perforation Specimens None Drains None Anesthesia Type General Complications None Indications Large bowel obstruction Description of Procedure The patient was brought back to the operating room and placed on the operating room table in supine position. She was connected to cardiac and oxygen monitoring and SCDs were applied to bilateral lower extremities. Supplemental O2 was administered. The patient was administered general anesthesia and a secure airway was obtained. Wright and NGT were placed to the emergency department. The abdomen was prepped and draped in typical sterile fashion. A timeout was conducted. A measuring tape and marking pen were used to plan the incision for a transverse colostomy based on the patient's CT imaging. A tr ansverse skin incision was made at the right upper quadrant with a 15 blade which was carried down to the subcutaneous tissue. Cautery was used to separate the subcutaneous tissue until the anterior rectus sheath was encountered. The anterior rectus sheath was carefully entered using cautery. The rectus muscle was using a Edna clamp and then cautery was used to extend this opening slightly more. A small amount of bleeding along the way was controlled with cautery the posterior rectus sheath was elevated using hemostats and a Metzenbaum scissor was used to incise the posterior rectus sheath as well as the peritoneum immediately posterior to this. Bowel came into view was confirmed to be the transverse colon by the presence of haustral markings, tinea and thin omental attachments. The omentum was removed from the colon using alternating cautery and suture ligation. Orientation of the transverse colon was confirmed by mobilizing the colon into the wound distally and proximally. At this point excess colon was replaced into the wound. The area intended for colostomy creation was isolated and pulled out of the transverse incision. The mesentery was using a hemostat clamp and a Hiawatha was inserted to keep the colon in place. The colon was incised longitudinally along the tinea and was decompressed. A pool suction was inserted both approximately to help decompress the severely dilated cecum as well as distally. Copious amounts of liquid stool were suctioned away. Of note there was no fecal contamination to the intraperitoneal space. Dirty instruments were set aside. The colostomy was then created using 2-0 Vicryl sutures. The Jayashree drain was shortened and secured at both the superior and inferior ends using silk suture. The abdomen was wiped clean with a saline soaked lap pad, dried and Skin-Prep was used around the newly created stoma. A colostomy appliance was applied. The patient tolerated the procedure well. She was awakened from anesthesia, the secure airway was removed and she was transferred to a recovery area in stable condition I attest to the content of the Intraoperative Record and any orders documented therein. Any exceptions are noted below.
[2023-05-10] MEDS: fentaNYL citrate PF 100 MCG/2 ML VIAL IV PRN (05:38)
[2023-05-10] MEDS: ONDANSETRON INJ 2 MG/ML 2 ML VIAL IV PRN (05:38)
--- NOTE | 2023-05-10 05:50 | Anesthesiology Progress Note ---
Date of Service May 10, 2023 Anesthesia Post Procedure Vital Signs Vital Signs: Temp Pulse Pulse Resp BP BP Pulse Ox 05/10/23 05:40 97 H 21 120/76 92 05/10/23 05:25 36.6 C 97 H 18 116/85 92 05/10/23 03:04 05/10/23 03:00 111 H 17 121/84 97 05/10/23 02:10 36.6 C 111 H 18 116/78 96 05/10/23 01:15 36.7 C 111 H 20 108/72 97 05/10/23 01:07 111 H 05/10/23 01:00 36.7 C 111 H 22 122/83 96 05/10/23 00:15 36.6 C 112 H 20 107/70 96 05/09/23 23:45 36.6 C 111 H 20 111/76 97 05/09/23 23:30 36.6 C 107 H 18 106/70 97 05/09/23 23:11 36.4 C L 112 H 14 109/76 95 05/09/23 22:15 118 H 18 116/74 95 05/09/23 22:00 121 H 18 109/69 96 05/09/23 22:00 96 05/09/23 21:45 122 H 26 H 96/77 L 94 05/09/23 21:30 124 H 26 H 93 05/09/23 21:16 36.6 C 122 H 20 96/70 L 94 05/09/23 21:15 123 H 24 95 05/09/23 21:15 123 H Pulse Ox O2 Del Method O2 Del Method O2 Flow Rate O2 Flow Rate 05/10/23 05:40 Nasal Cannula 3 05/10/23 05:25 Nasal Cannula 3 05/10/23 03:04 96 Nasal Cannula 4 05/10/23 03:00 Room Air 4 05/10/23 02:10 4 05/10/23 01:15 4 05/10/23 01:07 05/10/23 01:00 4 05/10/23 00:15 4 05/09/23 23:45 4 05/09/23 23:30 4 05/09/23 23:11 4 05/09/23 22:15 05/09/23 22:00 05/09/23 22:00 Nasal Cannula 4 05/09/23 21:45 05/09/23 21:30 05/09/23 21:16 Nasal Cannula 6 05/09/23 21:15 05/09/23 21:15 Transfer of Care Handoff Completed per policy Notes Mental Status: alert / awake / arousable and participated in evaluation Patient Amnestic to Procedure: Yes Nausea / Vomiting: adequately controlled Pain: adequately controlled Airway Patency, RR, SpO2: stable & adequate BP & HR: stable & adequate Hydration State: stable & adequate Anesthetic Complications: no major complications apparent
--- OUTSIDE RECORDS SUMMARY | 2023-05-10 07:19 | External Medical Summary | Summary of Care ---
Author Name Unknown Organization [facility] Address [address] [place] [address] Phone [phone] Care Team Providers Care Senior Firewall Engineer Name Role Phone Kristyn Brown MD Primary Care Provid er Reason for Visit * Reason Onset Date Comments Home Monitoring Orders Only 05/08/2023 Encounter Details Date Type Department Care Team (Late st Contact Info) Description 05/08/2023 Home Monitoring [facility] [address] [place] [address] Kristyn Brown MD [address] [place] [address] Pain from bone metastases (HCC)* Allergies Active Allergy Reactions Criticality Noted Date Comments Cephalexin Rash Low 01/05/2021 documented as of this encounter (statuses as of 05/08/2023) Medications Medication Sig Dispensed Refills Start Date End Date Status Oxybutynin Chloride ER 10 MG Oral Tablet Extended Release 24 Hour (Ditropan XL) Take 1 Tab by mouth daily. 30 Tab 11 02/05/2020 Active Desonide 0.05 % External Cream Apply to affected areas (on face) twice daily 0 09/02/2020 Active Melatonin 3 MG Oral Tablet TAKE 1 TABLET BY MOUTH EVERYDAY AT BEDTIME 0 05/03/2020 Active Ondansetron HCl 4 MG Oral Tablet (Zofran) take 1 tablet by mouth every 4 hours 0 06/06/2020 Active Cilostazol 50 MG Oral Tablet (Pletal) Take 1 Tablet by mouth in the morning and 1 Tablet before bedtime. 0 10/13/2020 Active Fluocinonide 0.05 % External Solution Apply topically to affected area . 0 06/21/2021 Active Gabapentin 100 MG Oral Capsule (Neurontin) Take 2 Capsules by mouth in the morning and 2 Capsules before bedtime. 0 05/26/2021 Active DULoxetine HCl 30 MG Oral Capsule Delayed Release Particles Take 1 Capsule by mouth in the morning. 0 Active fentaNYL 12 MCG/HR Transdermal Patch [address] 1 Patch topically on the skin every 3 days. 0 Active Tyrvaya 0.03 MG/ACT Nasal Solution (Varenicline Tartrate) Administer into nostril 2 times a day. Uses for dry eyes 0 Active predniSONE 20 MG Oral Tablet (Deltasone) TAKE 2 TABLETS BY MOUTH DAILY FOR 30 DAYS 0 03/15/2023 Active Potassium Chloride ER 20 MEQ Oral Tablet Extended Release Take 1 Tablet by mouth in the morning. 0 02/24/2023 Active Polyethylene Glycol 3350 17 GM Oral Packet (Miralax) Take by mouth. 0 Acti ve Magnesium Oxide -Mg Supplement 400 (240 Mg) MG Oral Tablet (Mag-Ox) TAKE 1 TABLET BY MOUTH TWICE A DAY FOR 10 DAYS 0 02/24/2023 Active droNABinol 2.5 MG Oral Capsule (Marinol) Take 1 Capsule by mouth in the morning and 1 Capsule before bedtime. 0 03/02/2023 Active Dicyclomine HCl 10 MG Oral Capsule (Bentyl) Take 1 Capsule by mouth. 0 Active Senna 8.6 MG Oral Capsule Take 17.2 mg by mouth. 0 02/15/2022 Active cycloSPORINE 0.05 % Ophthalmic Emulsion (Restasis) 1 Drop. 0 02/15/2022 Active OLANZapine 2.5 MG Oral Tablet (zyPREXA)Indications :Other insomnia Take 2 Tablets by mouth at bedtime. 60 Tablet 5 03/19/2023 Active Lidocaine 5 % External Patch (Lidoderm)Indication s:Hip pain, right,Pain from bone metastases (HCC) Place 1 Patch over 12 hours topically on the skin daily. 30 Patch 5 03/19/2023 Active Sulfamethoxazole-Tri methoprim 800-160 MG Oral Tablet (Bactrim DS) Take 2 Tablets by mouth in the morning and 2 Tablets at noon and 2 Tablets before bedtime. 0 Active Pantoprazole Sodium 40 MG Oral Tablet Delayed Release (Protonix) Take 1 Tablet by mouth in the morning. 0 Active HYDROcodone Bit-Homatrop MBr 5-1.5 MG/5ML Oral Solution (Hydromet) Take by mouth 4 times a day as needed for Cough. 0 Active metoprolol succinate XL 12.5 MG OR TB24 Take 0.5 Tablets by mouth in the morning. 0 Active Amoxicillin-Pot Clavulanate 875-125 MG Oral Tablet (Augmentin) Take 1 Tablet by mouth in the morning and 1 Tablet before bedtime. 0 Active Voriconazole 200 MG Oral Tablet (Vfend) Take 1 Tablet by mouth in the morning and 1 Tablet before bedtime. 0 Active Enoxaparin Sodium 100 MG/ML Injection Solution Prefilled Syringe (Lovenox) Inject 60 mg under the skin in the morning and 60 mg before bedtime. 0 Active documented as of this encounter (statuses as of 05/08/2023) Active Problems Problem Noted Date Diagnosed Date [...] as of this encounter (statuses as of 05/08/2023) Immunizations Name Administration Dates Next Due COVID-19 [...] of Binge Drinking Not on file 09/2019 PHQ-2 Answer Date Recorded PHQ Adult Total Score 0 05/08/2023 Hunger Vital Sign Answer Date Recorded Within the past 12 months, y ou worried that your food would run out before you got the money to buy more. Never true 05/08/19 24 Within the past 12 months, t he food you bought just didn't last and you didn't have money to get more. Never true 05/08/2023 Sex and Gender Information Value Date Recorded Sex Assigned at Female 03/12/2023 2:57 PM EST Gender Identity Female 03/12/2023 2:57 PM EST Sexual Orientation Straight 03/12/2023 2: 57 PM EST Job Start Date Occupation Industry Not on file Not on file Not on file documented as of this encounter Progress Notes * Rashmi Carey OSA - 05/08/2023 10:18 AM EST Patient has been successfully enrolled to the [place] [address] Care Coordination and Integration (CCI) program and will be provided with the Current Health Wearable device to facilitate their participation in remote monitoring: Population Health Pathway: Wearable Only Patient has been oriented to remote patient monitoring by their [employer] Architect. The test case developer has also provided the patient with instruction and education regarding the program. Current health to assist with initial device set-up. Delivery Method: Mail Patient understands that this monitoring should not be used as a replacement for emergency and/or urgent care. If patient experiences any urgent symptoms, they are aware to call their manager testing for additional instructions. In emergency situations, they will either call 911 or report directly to the ED for further evaluation. documented in this encounter Plan of Treatment Upcoming Encounters Date Type Department Care Team (Late st Contact Info) Description 05/14/2023 11:00 AM EST Office Visit [facility] [address] [place] [phone] Kristyn Brown MD [address] [place] [address] Health Maintenance Due Date Last Done Comments [...] FOR HTN 2021 COVID-19 Vaccine (5 - 2022-24 season) 2022 07/11/2021, 11/26/2020, 06/03/2020, Additional history [...] as of this encounter Visit Diagnoses Diagnosis Pain from bone metastases (HCC)- Primary documented in this encounter Advance Directives Latest [...] and were consensually agreed upon. Care Teams Senior Firewall Engineer Relationship Specialty Start Date End Date Kristyn Brown MD [address] [place] [facility] [address] PCP - General Family Medicine 08/08/21 documented as of this encounter
--- OUTSIDE RECORDS SUMMARY | 2023-05-10 07:20 | External Medical Summary | Summary of Care ---
Author Name Unknown Organization [facility] Address [address] [place] [address] Phone [phone] Care Team Providers Care Distillery Laborer Name Role Phone Kristyn Brown MD Primary Care Provid er Reason for Visit * Reason Onset Date Comments Health Maintenance 04/27/2023 Encounter Details Date Type Department Care Team (Late st Contact Info) Description 04/27/2023 Telephone [facility] [address] [place] [address] Kristyn Brown MD [address] [place] [address] Health Maintenance Allergies Active Allergy Reactions Criticality Noted Date Comments Cephalexin Rash Low 01/05/2021 documented as of this encounter (statuses as of 04/27/2023) Medications Medication Sig Dispensed Refills Start Date [...] mouth every 4 hours 0 06/06/2020 Active Mupirocin 2 % External Ointment (Bactroban) [...] 2 Capsules before bedtime. 0 05/26/2021 Active Fluticasone Propionate 50 MCG/ACT Nasal SuspensionIndication s:Acute sinusitis, recurrence not specified, unspecified location,Bronchitis due to COVID-19 virus,COVID-19,Malig nant neoplasm of cervix, unspecified site (HCC),LRTI (lower respiratory tract infection) Administer into each nostril 2 Sprays in the morning. 1 Each 0 07/22/2021 Active Additional Information Patient not taking.Reported on 12/05/2022 Ventolin HFA 108 (90 Base) MCG/ACT Inhalation Aerosol SolutionIndications: SOB (shortness of breath) Inhale by mouth 2 [...] skin daily. 30 Patch 5 03/19/2023 Active documented as of this encounter (statuses as of 04/27/2023) Active Problems Problem Noted Date Diagnosed Date [...] as of this encounter (statuses as of 04/27/2023) Immunizations Name Administration Dates Next Due COVID-19 mRNA, LNP-s, No Pre serve, 2-Dose Series (Everdream) 06/03/2020,05/11/2020 Pneumococcal Polysaccharide PPV23 (Pneumovax) Seasonal Influenza [...] encounter Miscellaneous Notes * Telephone Encounter - Sagrario Cisneros LPN - 04/27/2023 1:27 PM EST Care Gaps Comprehensive Care Outreach Last Office/Telemedicine Visit: 03/19/2023 (in office), 07/25/2021 (telemedicine) Next Office Visit: 05/04/2023 Hemoglobin AIC Results: No results found for: "HEMOGLOBIN A1C" Reviewed Health Maintenance below: Health Maintenance Topic Date Due Hepatitis B (1 of 3 - 3-dose series) Never done Depression Screening Never done HIV Screening Never done Hepatitis C Screening Never done Pneumococcal Vaccine: Pediatrics (0 to 5 Years) and At-Risk Patients (6 to 64 Years) (2 - PCV) 11/13/2014 Mammogram 03/14/2017 inpatient Care Gap Outreach Action Taken: Outreach not indicated documented in this encounter Plan of Treatment Upcoming Encounters Date Type Department Care Team (Late st Contact Info) Description 05/04/2023 11:00 AM EST Office Visit [facility] [address] [place] [phone] Kristyn Brown MD [address] [place] [address] 05/16/2023 1:00 PM EST Office Visit Palliative Medicine [facility] [address] [place] [address] Yary Sellers MD [address] [place] [address] [place] [address] Health Maintenance Due Date Last Done Comments [...] FOR HTN 2021 COVID-19 Vaccine ( - 2022-24 season) 2022 07/11/2021, 11/26/2020, 06/03/2020, [...] and were consensually agreed upon. Care Teams Distillery Laborer Relationship Specialty Start Date End Date Kristyn Brown MD [address] [facility] [place] [address] PCP - General Family Medicine 08/08/21 documented as of this encounter
--- OUTSIDE RECORDS SUMMARY | 2023-05-10 07:20 | External Medical Summary | Summary of Care ---
Author Name Unknown Organization [facility] Address [address] [place] [address] Phone [phone] Care Team Providers Care Thinner Sprayer Name Role Phone Kristyn Brown MD Primary Care Provid er Encounter Details Date Type Department Care Team (Late st Contact Info) Description 04/30/2023 Result Scan Unspecified Department <No scans attached> Allergies Active Allergy Reactions Criticality Noted Date Comments Cephalexin Rash Low 01/05/2021 documented as of this encounter (statuses as of 05/01/2023) Medications Medication Sig Dispensed Refills Start Date [...] as of this encounter (statuses as of 05/01/2023) Active Problems Problem Noted Date Diagnosed Date [...] as of this encounter (statuses as of 05/01/2023) Immunizations Name Administration Dates Next Due COVID-19 mRNA, LNP-s, No Pre serve, 2-Dose Series (Azullo) 06/03/2020,05/11/2020 Pneumococcal Polysaccharide PPV23 (Pneumovax) Seasonal Influenza [...] as of this encounter Plan of Treatment Upcoming Encounters Date Type Department Care Team (Late st Contact Info) Description 05/04/2023 11:00 AM EST Office Visit [facility] [address] [place] [address] Kristyn Brown MD [address] [place] [address] 05/16/2023 1:00 PM EST Office Visit Palliative Medicine [facility] [address] [place] [address] Yary Sellers MD [address] [place], [place] [id number] Health Maintenance Due Date Last Done Comments [...] FOR HTN 2021 COVID-19 Vaccine ( - season) 2022 07/11/2021, 11/26/2020, 06/03/2020, Additional history [...] Procedure Name Priority Date/Time Associated Diagnosis Comments PROCEDURE SCANNED RESULT 04/30/2023 documented in this encounter Results * PROCEDURE SCANNED RESULT (04/30/2023) 04/30/2023 No Physician Data Unknown SURGERY documented in this encounter Advance Directives Latest [...] and were consensually agreed upon. Care Teams Thinner Sprayer Relationship Specialty Start Date End Date Kristyn Brown MD [address] [place] [address] PCP - General Family Medicine 08/08/21 documented as of this encounter
--- NOTE | 2023-05-10 07:22 | XRay Report ---
KUB CLINICAL HISTORY: Enteric tube placement. FINDINGS: Ap, portable, upright view of the lower chest and upper abdomen is compared to study dated 04/28/2023 and correlated with abdominal CT dated 05/09/2023. An enteric tube has been placed. The tip p rojects below the diaphragm over the gastric fundus. A right internal jugular central venous infusion port is partially imaged. There is gaseous distention of the colon and small bowel loops noted in th e upper abdomen. No intraperitoneal free air is seen below the diaphragm. Multifocal patchy airspace consolidation is seen at both lung bases. There are chronic/healed left-sided rib fractures. IMPRESSION: 1. An enteric tube has been placed as above. 2. There is persistent gaseous distention of the small bowel loops and colon, likely corresponding to the colonic obstruction seen by CT. 3. Multifocal airspace consolidation as above. Electronically signed by: Shaheen Blanca M.D. 05/10/2023 7:21 AM
[2023-05-10] MEDS: PIPERACILLIN/TAZOBACTAM 4.5 GM in DEXTROSE 5% MINI-B 100 ML IV SCH (07:31)
[2023-05-10] MEDS: SODIUM CHLORIDE 0.9% 1,000 ML IV SCH (07:31)
[2023-05-10] MEDS: ONDANSETRON INJ 2 MG/ML 2 ML VIAL ONE (07:32)
[2023-05-10] MEDS: fentaNYL citrate PF 100 MCG/2 ML VIAL ONE (07:32)
--- NOTE | 2023-05-10 07:58 | XRay Report ---
SINGLE VIEW CHEST CLINICAL HISTORY: Sepsis. FINDINGS: An AP, portable, upright chest radiograph is compared to study dated 05/03/2023 and correlate d with chest CT dated 04/27/2023. A right internal jugular central venous infusion port is unchanged i n position. Fullness of the mariya likely represent lymphadenopathy. The cardiomediastinal silhouette i s unremarkable. Extensive/multifocal airspace consolidation is again seen throughout both lungs lungs foci of cavitation. No large pleural effusion or pneumothorax is seen. The skeletal structures are o steopenic. There are chronic/healed left-sided rib fractures. Distended small bowel loops in the uppe r abdomen are again noted. IMPRESSION: 1. Multifocal airspace consolidation throughout both lungs is similar to 05/03/2023 noting foci of cavi tation. 2. No large pleural effusion is seen. 3. Distention of the bowel loops is again seen in the upper abdomen. ACT 112: Negative or not required by law. Electronically signed by: Shaheen Blanca M.D. 05/10/2023 7:56 AM
--- NOTE | 2023-05-10 07:59 | Electrocardiogram Report ---
Test Reason : Blood Pressure : / mmHG Vent. Rate : 124 BPM Atrial Rate : 124 BPM P-R Int : 130 ms QRS Dur : 080 ms QT Int : 306 ms P-R-T Axes : 069 095 000 degrees QTc Int : 439 ms Sinus tachycardia Rightward axis Nonspecific T wave abnormality Inferior leads Abnormal ECG When compared with ECG of 27-APR-2023 10:46, No significant change was found Confirmed by Tj Gerardo ([id number]) on 05/10/2023 7:58:50 AM Referred By: REFERRED SELF Confirmed By:Tj Gerardo
[2023-05-10] MEDS ORDERED: CHECK fentaNYL PATCH PLACEMENT SCH (08:00)
[2023-05-10] MEDS ORDERED: predniSONE 20 MG TAB PO SCH (09:00)
[2023-05-10] MEDS ORDERED: PANTOprazole 40 MG TAB PO SCH (09:00)
[2023-05-10] MEDS ORDERED: METOPROLOL SUCC 25MG EXT REL TAB PO SCH (09:00)
[2023-05-10] MEDS ORDERED: POLYETHYLENE (MIRALAX) 17 GM PACK PO SCH (09:00)
--- OUTSIDE RECORDS SUMMARY | 2023-05-10 09:11 | External Medical Summary | Summary of Care ---
Author Name Unknown Organization [facility] Address [address] [place] [address] Phone [phone] Care Team Providers Care Shank Turner Name Role Phone Kristyn Brown MD Primary Care Provid er Reason for Visit * Reason Onset Date Comments Home Health 05/09/2023 Encounter Details Date Type Department Care Team (Late st Contact Info) Description 05/09/2023 Telephone [facility] [address] [place] [address] Kristyn Brown MD [address] [place] [address] Home Health Allergies Active Allergy Reactions Criticality Noted Date Comments Cephalexin Rash Low 01/05/2021 documented as of this encounter (statuses as of 05/09/2023) Medications Medication Sig Dispensed Refills Start Date [...] 02/15/2022 Active OLANZapine 2.5 MG Oral Tablet (zyPREXA)Indications: Other insomnia Take 2 Tablets by mouth at bedtime. 60 Tablet 5 03/19/2023 Active Lidocaine 5 % External Patch (Lidoderm)Indications :Hip pain, right,Pain from bone metastases (HCC) Place 1 Patch over 12 hours topically on the skin daily. 30 Patch 5 03/19/2023 Active Sulfamethoxazole-Trim ethoprim 800-160 MG Oral Tablet (Bactrim DS) Take [...] and 60 mg before bedtime. 0 Active Ondansetron 4 MG Oral Tablet Disintegrating (Zofran)Indications:N ausea and vomiting, unspecified vomiting type Place 1 Tablet on tongue every 8 hours as needed for Nausea or Vomiting. dissolve on tongue. 40 Tablet 2 05/09/2023 Active documented as of this encounter (statuses as of 05/09/2023) Active Problems Problem Noted Date Diagnosed Date [...] as of this encounter (statuses as of 05/09/2023) Immunizations Name Administration Dates Next Due COVID-19 [...] encounter Miscellaneous Notes * Telephone Encounter - Rashmi Lema LPN - 05/09/2023 3:15 PM EST Called and spoke to Kasandra from , she verbalized understanding * Telephone Encounter - Jerod Swanson MD - 05/09/2023 2:42 PM EST New prescription for dissolvable zofran sent to [facility] in [place]. Can use her current zofran up tothree times daily as needed until she picks up the new script. Take fluids as much as possible to thin secretions. Jerod Swanson MD * Telephone Encounter - Faith East LPN - 05/09/2023 2:19 PM EST Concerns Kasandra RN, Calling from: [facility] Report/Concerns of: Nausea/Vomiting Symptoms: Nausea/Vomiting Narrative: YO Slaughter calling in stating that patient is having a hard tie keeping anything down since being discharged from the hospital, she keeps coughing up quite a bit of phlegm. She was even chocking on the phlegm yesterday as the phlegm was so thick. Kasandra stated that she was discharged with no nausea medication on hand. She does have Zofran 8mg at home but the instructions are worn off and Kasandra is wanting to know if she can use this for now? Is so please advise on instructions. Also asking if a prescription for dissolvable Zofran can be sent to her pharmacy. Please advise Call back Rogers her with any advice at [phone] Spoke with Rashmi in Office, she advised to send to Dr. Swanson since PCP is not in office. documented in this encounter Plan of Treatment Upcoming Encounters Date Type Department Care Team (Late st Contact Info) Description 05/14/2023 11:00 AM EST Office Visit [facility] [address] [place] [address] Kristyn Brown MD [address] [place] [address] Health Maintenance Due Date Last Done Comments Hepatitis B (1 of 3 - 3-dose series) 1970 HIV Screening 1985 Hepatitis C Screening 1988 [...] (FLU shot) (#1) 2022 12/23/2019, 01/13/2019, 01/13/2019 Depression Screening 05/08/2024 05/08/2023 COLONOSCOPY-EVERY 5 YRS AGES 18-100 12/08/2027 12/07/2022, 12/07/2022, 04/08/2019, Additional history exists GARDASIL-HPV IMMUNIZATION SERIES Aged Out No longer eligible based on patient's age to complete this topic MENINGOCOCCAL (MENACTRA/MENVEO) Aged Out No longer eligible based on patient's age to complete this topic documented as of this encounter Medical Devices Not on filedocumented as of this encounter Visit Diagnoses Diagnosis Nausea and vomiting, unspecified vomiting type- Primary documented in this encounter Advance Directives [...] and were consensually agreed upon. Care Teams Shank Turner Relationship Specialty Start Date End Date Kristyn Brown MD [address] [place] [address] PCP - General Family Medicine 08/08/21 documented as of this encounter
--- OUTSIDE RECORDS SUMMARY | 2023-05-10 09:11 | External Medical Summary | Summary of Care ---
Author Name Unknown Organization [facility] Address [address] [place] [address] Phone [phone] Care Team Providers Care Loom Setter Name Role Phone Kristyn Brown MD Primary Care Provid er Reason for Visit * Reason Onset Date Comments Home Health 05/09/2023 Encounter Details Date Type Department Care Team (Late st Contact Info) Description 05/09/2023 Telephone [facility] [address] [place] [address] Kristyn Brown MD [address] [place] [address] Home Health Allergies Active Allergy [...] encounter Miscellaneous Notes * Telephone Encounter - Jerod Swanson MD - 05/09/2023 2:42 PM EST New prescription for dissolvable zofran sent to [facility] in [place]. Can use her current zofran up tothree times daily as needed until she picks up the new script. Take fluids as much as possible to thin secretions. Jerod Swanson MD * Telephone Encounter - Faith East LPN - 05/09/2023 2:19 PM EST HH Concerns Kasandra RN, Calling from: [facility] Report/Concerns of: Nausea/Vomiting Symptoms: Nausea/Vomiting Narrative: YO [...] back Rogers her with any advice at [phone] Spoke with Rashmi in Office, she advised to send to Dr. Swanson since PCP is not in office. documented in this encounter Plan of Treatment Upcoming Encounters Date Type Department Care Team (Late st Contact Info) Description 05/14/2023 11:00 AM EST [facility] [place] [address] [facility] [address] [facility] [address] [facility] [address] Health Maintenance Due Date Last Done [...] *BASELINE EKG FOR HTN 2021 COVID-19 Vaccine (2022- season) 2022 07/11/2021, 11/26/2020, 06/03/2020, Additional history [...] and were consensually agreed upon. Care Teams Loom Setter Relationship Specialty Start Date End Date Kristyn Brown MD [address] [facility] [place] [address] PCP - General Family Medicine 08/08/21 documented as of this encounter
[2023-05-10] MEDS: fentaNYL 12 MCG/HR TDSY TD SCH (09:46)
[2023-05-10] MEDS: methylPREDNISolone 32 MG in SYRINGE 0 ML IV SCH (09:49)
[2023-05-10] MEDS: SULFAMETHOXAZOLE/TRIMETHOPRIM DS 800/160MG TAB PO SCH (09:49)
[2023-05-10] MEDS: PANTOprazole 40 MG TAB PO SCH (09:50)
[2023-05-10] MEDS: VORICONAZOLE 200 MG TABLET PO SCH (09:51)
[2023-05-10] MEDS: GABAPENTIN 100 MG CAP PO SCH (09:52)
[2023-05-10] MEDS: DULoxetine HCL 60 MG CAP PO SCH (09:52)
[2023-05-10] MEDS: MoRPHine SULFATE 2 MG/ML CARP IV PRN (10:17)
[2023-05-10 10:39] LABS: iSTAT Creatinine 0.5 mg/dl (0.6-1.3); iSTAT Hemoglobin 7.5 g/dl (12.0-16.0); iSTAT Ionized Calcium 1.19 mmol/l (1.12-1.32); iSTAT Potassium 3.9 mmol/L (3.3-5.0)
[2023-05-10] MEDS ORDERED: PANTOprazole 40 MG in SYRINGE 0 ML IV SCH (11:00)
--- NOTE | 2023-05-10 12:51 | Surgery Progress Note ---
Date of Service May 10, 2023 Assessment & Plan (1) Large bowel obstruction: (2) Metastatic disease: Plan: s/p transverse colostomy and urgent colonic decompression. Feels well. Colostomy with function May remove NGT, has been clamped May start clears Admission and Anticipated Discharge Date Admission Date: May 10, 2023 Subjective Patient seen post operatively. Feels much better. No N/V, no abdominal pain, feels relieved. Physical Exam Gastrointestinal (Abdomen): stoma appears pink and healthy. With some edema. Liquid stool and flatus in the bag. Results & Data Vital Signs (Past 12 Hours) Vital Signs Temp Pulse Pulse Resp BP BP Pulse Ox 05/10/23 11:55 36.7 C 05/10/23 11:30 105 H 21 96 05/10/23 11:30 93/61 L 05/10/23 11:28 108 H 18 95 05/10/23 11:28 91/65 L 05/10/23 11:15 110 H 18 96 05/10/23 11:15 96/58 L 05/10/23 11:00 110 H 14 96 05/10/23 11:00 97/59 L 05/10/23 10:45 107/63 05/10/23 10:45 109 H 17 96 05/10/23 10:30 106/58 L 05/10/23 10:30 109 H 24 95 05/10/23 10:15 107 H 21 97 05/10/23 10:15 106/69 05/10/23 10:00 109 H 16 97 05/10/23 10:00 109/63 05/10/23 09:45 111 H 18 87 L 05/10/23 09:45 117/65 05/10/23 09:30 102 H 21 90 05/10/23 09:30 106/60 05/10/23 09:15 93/59 L 05/10/23 09:15 107 H 20 92 05/10/23 09:00 108 H 18 94 05/10/23 09:00 103/59 L 05/10/23 08:45 104 H 17 95 05/10/23 08:45 112/70 05/10/23 08:30 107 H 21 95 05/10/23 08:30 94/64 L 05/10/23 08:15 116/74 100 05/10/23 08:15 107 H 26 H 99 05/10/23 08:00 108 H 20 92 05/10/23 08:00 108/63 05/10/23 07:45 113/64 05/10/23 07:45 108 H 24 97 05/10/23 07:38 108 H 15 98 05/10/23 07:38 114/70 05/10/23 07:33 103 H 25 H 97 05/10/23 07:00 105 H 14 110/76 05/10/23 06:55 108 H 15 05/10/23 06:45 36.5 C 106 H 13 119/76 99 05/10/23 06:30 36.5 C 104 H 12 107/70 95 05/10/23 06:15 36.5 C 105 H 12 118/74 93 05/10/23 06:00 36.6 C 103 H 13 120/69 94 05/10/23 05:50 36.6 C 99 H 16 124/69 92 05/10/23 05:40 97 H 21 120/76 92 05/10/23 05:25 36.6 C 97 H 18 116/85 92 05/10/23 03:30 110 H 19 97 05/10/23 03:30 119/78 05/10/23 03:15 110 H 17 97 05/10/23 03:15 119/77 05/10/23 03:04 05/10/23 03:00 121/84 05/10/23 03:00 110 H 18 98 05/10/23 03:00 111 H 17 121/84 97 05/10/23 02:45 131/86 05/10/23 02:45 109 H 19 94 05/10/23 02:30 104 H 18 93 05/10/23 02:30 122/80 05/10/23 02:15 117/78 05/10/23 02:15 110 H 19 97 05/10/23 02:11 116/78 05/10/23 02:11 110 H 18 96 05/10/23 02:10 36.6 C 111 H 18 116/78 96 05/10/23 02:00 111/74 05/10/23 02:00 112 H 24 05/10/23 01:45 109 H 16 98 05/10/23 01:45 114/74 05/10/23 01:30 112 H 21 94 05/10/23 01:30 118/80 05/10/23 01:15 110 H 22 93 05/10/23 01:15 108/72 05/10/23 01:15 36.7 C 111 H 20 108/72 97 05/10/23 01:07 111 H 05/10/23 01:00 115 H 33 H 91 05/10/23 01:00 122/83 05/10/23 01:00 36.7 C 111 H 22 122/83 96 Pulse Ox O2 Del Method O2 Del Method O2 Flow Rate O2 Flow Rate 05/10/23 11:55 05/10/23 11:30 05/10/23 11:30 05/10/23 11:28 05/10/23 11:28 05/10/23 11:15 05/10/23 11:15 05/10/23 11:00 05/10/23 11:00 05/10/23 10:45 05/10/23 10:45 05/10/23 10:30 05/10/23 10:30 05/10/23 10:15 05/10/23 10:15 05/10/23 10:00 05/10/23 10:00 05/10/23 09:45 05/10/23 09:45 05/10/23 09:30 05/10/23 09:30 05/10/23 09:15 05/10/23 09:15 05/10/23 09:00 05/10/23 09:00 05/10/23 08:45 05/10/23 08:45 05/10/23 08:30 05/10/23 08:30 05/10/23 08:15 05/10/23 08:15 05/10/23 08:00 05/10/23 08:00 05/10/23 07:45 05/10/23 07:45 05/10/23 07:38 05/10/23 07:38 05/10/23 07:33 05/10/23 07:00 05/10/23 06:55 05/10/23 06:45 Nasal Cannula 3 05/10/23 06:30 Nasal Cannula 3 05/10/23 06:15 Nasal Cannula 3 05/10/23 06:00 Nasal Cannula 3 05/10/23 05:50 Nasal Cannula 3 05/10/23 05:40 Nasal Cannula 3 05/10/23 05:25 Nasal Cannula 3 05/10/23 03:30 05/10/23 03:30 05/10/23 03:15 05/10/23 03:15 05/10/23 03:04 96 Nasal Cannula 4 05/10/23 03:00 05/10/23 03:00 05/10/23 03:00 Room Air 4 05/10/23 02:45 05/10/23 02:45 05/10/23 02:30 05/10/23 02:30 05/10/23 02:15 05/10/23 02:15 05/10/23 02:11 05/10/23 02:11 05/10/23 02:10 4 05/10/23 02:00 05/10/23 02:00 05/10/23 01:45 05/10/23 01:45 05/10/23 01:30 05/10/23 01:30 05/10/23 01:15 05/10/23 01:15 05/10/23 01:15 4 05/10/23 01:07 05/10/23 01:00 05/10/23 01:00 05/10/23 01:00 4 PG Care Time/CCT Total # of Minutes Spent Total Time Spent with Patient: Total time spent is greater than 50% in coordination of care (as documented) at patient's floor/unit and/or counseling patient: Coding Level of Care Code 06422 Post Operative Follow-Up Diagnoses Large bowel obstruction K56.609 Metastatic disease C79.9 Area of secondary neoplastic involvement: unspecified site (2) Metastatic disease Area of secondary neoplastic involvement: unspecified site Qualified Code(s): C79.9 - Secondary malignant neoplasm of unspecified site
[2023-05-10] MEDS: METOPROLOL SUCC 25MG EXT REL TAB PO ONE (13:06)
--- NOTE | 2023-05-10 14:47 | Hospitalist Progress Note ---
Date of Service May 10, 2023 Assessment & Plan (1) Sepsis: Plan: Sepsis Healthcare associated pneumonia Immunocompromised State Chronic steroid Rx for Keytruda pneumonitis Metastatic cervical cancer --CXR:Multifocal airspace consolidation throughout both lungs is similar to 05/03/2023 noting foci of cavitation. No large pleural effusion is seen. -- Blood culture pending --Biofire negative -- Normal lactate, procalcitonin levels continue Zosyn Continue IV fluids Large bowel obstruction H/O recurrent small bowel obstruction --CT ABD:Diffuse prominent gas and fluid distention of the distal small bowel and the entire colon to the level of the mid to distal sigmoid, which is decompressed and demonstrates concentric mucosal thickening overlying to approximately 4.3 cm. This demonstrates a similar pattern to the previous CT examination. Findings are most consistent with recurrent distal colonic obstruction. An underlying mass lesion is not excluded in the sigmoid colon. Overton syndrome with incidental contraction in the sigmoid colon is considered less likely. Small volume perihepatic and perisplenic ascites. No loculation. The right kidney remains atrophic. However, there is no prominent hydronep hrosis with an abrupt transition at the UPJ. No obstructing ureteral stone noted in this area. Developing stenosis or functional obstruction may be present. --S/P Transverse colostomy and urgent colonic decompression by Dr. Elmore on 05/10/2023 Plan to discontinue NG tube Clear liquid diet Pain control Appreciate surgery input Stage IV cervical cancer with metastasis to lungs pelvis and vertebrae S/P surgery, radiation therapy and currently chemotherapy discontinued Poor prognosis as per oncologist per patient/family Patient/family requesting hospice evaluation Palliative care consulted Acute on chronic anemia Likely multifactorial : Metastatic disease, epistaxis, Internal hemorrhoids, post surgery In setting of therapeutic Lovenox use for DVT Currently no epistaxis S/P 1 unit PRBC Monitor H&H and transfuse as needed Hb 8.0 today H/O DVT History of chronic DVT in right femoral vein. History of multiple lower extremity venous thrombectomy and stent procedures. Was on therapeutic Lovenox and Pletal Resume home medications as able Hypotension Sinus tachycardia Likely dehydration Cannot rule out adrenal insufficiency given chronic steroid use Received IV Decadron Continue IV Solu-Medrol--transition to oral steroids as able Continue IV fluids Check cortisol levels Other chronic conditions Recent streptococcal bacteremia--ongoing Augmentin Rx PJP/fungal pneumonia ongoing Bactrim and voriconazole Rx Anxiety disorder DVT Px: SCDs Re:Surgery, Significant Anemia Code Status Full code for now Need to address goals of care Admission and Anticipated Discharge Date Admission Date: May 10, 2023 Subjective Patient is seen and examined at bedside States having abdominal pain at surgical site Denies any nausea, vomiting, chest pain, dyspnea Discussed with patient's family at bedside No other complaints Review of Systems Review of Systems: All systems reviewed & are unremarkable except as noted in Subjective Physical Exam Physical Exam: Physical Exam: Vitals signs as noted above General Appearance: Thin, frail, chronic ill appearing, no apparent distress Head: normocephalic, Atraumatic Eyes: normal inspection, EOMI Neck: supple, Trachea midline Respiratory/Chest: Normal breath sounds, B/L Crackles, No accessory muscle use Cardiovascular: S1, S2, No murmur Abdomen/GI:Soft, mild tender, +Colostomy, Bowel sounds present Extremities/Musculoskeletal:normal inspection, LE chronic lymphedema Neurologic/Psych:AAOX3, grossly no focal neurological deficits Skin: normal color, warm Results & Data Results & Data Vital Signs (Past 12 Hours) Vital Signs Temp Pulse Pulse Resp BP BP Pulse Ox 05/10/23 13:30 113 H 21 93 05/10/23 13:30 97/70 L 05/10/23 13:06 107/67 05/10/23 13:06 112 H 20 93 05/10/23 13:00 112 H 18 93 05/10/23 13:00 98/61 L 05/10/23 12:45 92/63 L 05/10/23 12:45 113 H 21 93 05/10/23 12:30 109 H 16 95 05/10/23 12:30 105/60 05/10/23 12:15 105/63 05/10/23 12:15 108 H 19 94 05/10/23 12:00 92/56 L 05/10/23 12:00 109 H 28 H 95 05/10/23 11:55 36.7 C 05/10/23 11:45 108 H 17 95 05/10/23 11:45 95/61 L 05/10/23 11:30 105 H 21 96 05/10/23 11:30 93/61 L 05/10/23 11:28 108 H 18 95 05/10/23 11:28 91/65 L 05/10/23 11:15 110 H 18 96 05/10/23 11:15 96/58 L 05/10/23 11:00 110 H 14 96 05/10/23 11:00 97/59 L 05/10/23 10:45 107/63 05/10/23 10:45 109 H 17 96 05/10/23 10:30 106/58 L 05/10/23 10:30 109 H 24 95 05/10/23 10:15 107 H 21 97 05/10/23 10:15 106/69 05/10/23 10:00 109 H 16 97 05/10/23 10:00 109/63 05/10/23 09:45 111 H 18 87 L 05/10/23 09:45 117/65 05/10/23 09:30 102 H 21 90 05/10/23 09:30 106/60 05/10/23 09:15 93/59 L 05/10/23 09:15 107 H 20 92 05/10/23 09:00 108 H 18 94 05/10/23 09:00 103/59 L 05/10/23 08:45 104 H 17 95 05/10/23 08:45 112/70 05/10/23 08:30 107 H 21 95 05/10/23 08:30 94/64 L 05/10/23 08:15 116/74 100 05/10/23 08:15 107 H 26 H 99 05/10/23 08:00 108 H 20 92 05/10/23 08:00 108/63 05/10/23 07:45 113/64 05/10/23 07:45 108 H 24 97 05/10/23 07:38 108 H 15 98 05/10/23 07:38 114/70 05/10/23 07:33 103 H 25 H 97 05/10/23 07:00 105 H 14 110/76 05/10/23 06:55 108 H 15 05/10/23 06:45 36.5 C 106 H 13 119/76 99 05/10/23 06:30 36.5 C 104 H 12 107/70 95 05/10/23 06:15 36.5 C 105 H 12 118/74 93 05/10/23 06:00 36.6 C 103 H 13 120/69 94 05/10/23 05:50 36.6 C 99 H 16 124/69 92 05/10/23 05:40 97 H 21 120/76 92 05/10/23 05:25 36.6 C 97 H 18 116/85 92 05/10/23 03:30 110 H 19 97 05/10/23 03:30 119/78 05/10/23 03:15 110 H 17 97 05/10/23 03:15 119/77 05/10/23 03:04 05/10/23 03:00 121/84 05/10/23 03:00 110 H 18 98 05/10/23 03:00 111 H 17 121/84 97 05/10/23 02:45 131/86 05/10/23 02:45 109 H 19 94 Pulse Ox O2 Del Method O2 Del Method O2 Flow Rate O2 Flow Rate 05/10/23 13:30 05/10/23 13:30 05/10/23 13:06 05/10/23 13:06 05/10/23 13:00 05/10/23 13:00 05/10/23 12:45 05/10/23 12:45 05/10/23 12:30 05/10/23 12:30 05/10/23 12:15 05/10/23 12:15 05/10/23 12:00 05/10/23 12:00 05/10/23 11:55 05/10/23 11:45 05/10/23 11:45 05/10/23 11:30 05/10/23 11:30 05/10/23 11:28 05/10/23 11:28 05/10/23 11:15 05/10/23 11:15 05/10/23 11:00 05/10/23 11:00 05/10/23 10:45 05/10/23 10:45 05/10/23 10:30 05/10/23 10:30 05/10/23 10:15 05/10/23 10:15 05/10/23 10:00 05/10/23 10:00 05/10/23 09:45 05/10/23 09:45 05/10/23 09:30 05/10/23 09:30 05/10/23 09:15 05/10/23 09:15 05/10/23 09:00 05/10/23 09:00 05/10/23 08:45 05/10/23 08:45 05/10/23 08:30 05/10/23 08:30 05/10/23 08:15 05/10/23 08:15 05/10/23 08:00 05/10/23 08:00 05/10/23 07:45 05/10/23 07:45 05/10/23 07:38 05/10/23 07:38 05/10/23 07:33 05/10/23 07:00 05/10/23 06:55 05/10/23 06:45 Nasal Cannula 3 05/10/23 06:30 Nasal Cannula 3 05/10/23 06:15 Nasal Cannula 3 05/10/23 06:00 Nasal Cannula 3 05/10/23 05:50 Nasal Cannula 3 05/10/23 05:40 Nasal Cannula 3 05/10/23 05:25 Nasal Cannula 3 05/10/23 03:30 05/10/23 03:30 05/10/23 03:15 05/10/23 03:15 05/10/23 03:04 96 Nasal Cannula 4 05/10/23 03:00 05/10/23 03:00 05/10/23 03:00 Room Air 4 05/10/23 02:45 05/10/23 02:45 Laboratory Results Short CBC 05/09/23 05/10/23 Range/Units 21:38 03:18 WBC 22.70 H 18.24 H (4.8-10.8) K/ul Hgb 6.8 L* 8.0 L (12.0-16.0) g/dl Hct 22.0 L 25.4 L (37.0-47.0) % Plt Count 600 H 472 H (130-400) K/uL BMP 05/09/23 05/10/23 21:38 03:15 Sodium 132 L 132 L Potassium 3.8 3.5 Chloride 99 101 Carbon Dioxide 25 24 BUN 20 18 Creatinine 0.55 L 0.42 L Glucose 94 115 H Calcium 8.6 7.9 L Liver Function 05/09/23 05/10/23 Range/Units 21:38 03:15 Total Bilirubin 0.3 0.3 (0.2-1.0) mg/dl Direct Bilirubin 0.0 (0-0.2) mg/dl AST 12 L 11 L (13-39) U/L ALT 7 8 (7-52) U/L Alkaline Phosphatase 108 H 100 (34-104) U/L Albumin 3.1 L 2.8 L (3.4-5.0) gm/dl Urine 05/10/23 Range/Units 00:55 Urine Color Yellow Urine Appearance Turbid A (Clear) Urine pH 7.5 (4.5-7.5) Ur Specific [place] 1.036 H (1.000-1.030) Urine Protein Negative (Negative) Urine Glucose (UA) Negative (Negative) (1) Sepsis Acute respiratory failure type: with hypoxia Sepsis acute organ dysfunction status: with acute organ dysfunction Sepsis type: sepsis due to unspecified organism Severe sepsis acute organ dysfunction type: acute respiratory failure Severe sepsis shock status: without septic shock Qualified Code(s): A41.9 - Sepsis, unspecified organism; R65.20 - Severe sepsis without septic shock; J96.01 - Acute respiratory failure with hypoxia
[2023-05-10 15:26] LABS: Hematocrit (blood only) 22.8 % (37.0-47.0); Hemoglobin 7.3 g/dl (12.0-16.0)
[2023-05-10] MEDS: CHECK fentaNYL PATCH PLACEMENT SCH (17:31)
[2023-05-10 21:25] LABS: Hematocrit (blood only) 20.7 % (37.0-47.0); Hemoglobin 6.9 g/dl (12.0-16.0)
[2023-05-10] MEDS: LORazepam 0.25 MG in SYRINGE 0.25 ML IV PRN (21:58)
[2023-05-10] MEDS: MELATONIN 3 MG TAB PO SCH (22:13)
[2023-05-10] MEDS: OLANZAPINE 2.5 MG TAB PO SCH (22:15)
[2023-05-11] MEDS: METOPROLOL SUCC 25MG EXT REL TAB PO SCH (08:55)
[2023-05-11 08:58] LABS: Hematocrit (blood only) 25.5 % (37.0-47.0); Hemoglobin 8.4 g/dl (12.0-16.0); Mean Corpuscular Hemoglobin 26.4 pg (25.0-34.0); Mean Corpuscular Hgb Conc 32.9 g/dL (32.0-36.0); Mean Corpuscular Volume 80.2 fL (80.0-100.0); Mean Platelet Volume 9.1 fL (9.4-12.4); Nucleated RBC # (auto) 0.35 K/uL (0.00-0.12); Nucleated RBC % (auto) 2.7 %; Platelet Count 302 K/uL (130-400); RDW Coefficient of Variation 20.8 % (11.5-14.5); RDW Standard Deviation 55.2 fL (36.4-46.3); Red Blood Count 3.18 M/uL (4.20-5.40); White Blood Count 12.93 K/ul (4.8-10.8)
[2023-05-11 09:23] LABS: BUN Creatinine Ratio 28.9 (10-20); Calcium 7.6 mg/dl (8.6-10.3); Creatinine Clr Calc Pharmacy 146.2 ml/min; Est GFR (African American) 133.5 ml/min; Est GFR (Non-African American) 115.2 ml/min; Magnesium 1.6 mg/dl (1.7-2.4); Potassium 3.6 mmol/L (3.5-5.1)
--- NOTE | 2023-05-11 09:30 | Palliative Care Consultation ---
Date of Consultation May 11, 2023 Assessment & Plan (1) Cancer related pain: currently NPO, on IV anticipate NGT out later today, will see how she does with clear liquids before adding PO meds would like need MS IR liquid _ TDF though absorption of TDF in cachectic patients is suboptimal Liquid oxycodone is in shortage and liquid dilaudid seems to be hard for pharmacies to obtain. 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 With their consent and voluntary participation we discussed serious illness and her overall goals of care. She tells me that she has had a serious conversation with her oncologist - no more chemo. They would like home hospice. We discussed the goals of hospice as a patient service and the goals of care; we discussed EOL trajectories and transitions ary the emotional impact of realizing mortality as a concrete reality from prior abstract considerations. Pt was reassured that no matter where they are along this trajectory, they are not alone - their medical team will remain by their side through their journey. Discussed the pros/cons of accepting help when especially weakened and distressed by pain-which would also help provide relief/decrease caregiver burden/strain.I provided education about the hospice benefit: an interdisciplinary program offered by nurses, nurses aides, social workers, chaplains and a biomedical engineering internship for patients with a terminal condition and a life expectancy of less than 6 months. This is covered by Medicare at 100%/no out of pocket expense to patient and all meds/supplies needed by patient for the reason they are on hospice are paid for/covered by hospice. The goal is assure quality of life of the patient in their home setting (home, residential, inpatient hospice setting) by providing symptoms management, psychosocial and spiritual support. However, they cannot offer 24 hours care and if the family is unable to provide that care, they will have to consider personal care with out of pocket cost vs. residential placement. We discussed the goals of hospice as a patient service and the goals of care; we discussed EOL trajectories and transitions ary the emotional impact of realizing mortality as a concrete reality from prior abstract considerations. Pt was reassured that no matter where they are along this trajectory, they are not alone - their medical team will remain by their side through their journey. Discussed the pros/cons of accepting help when especially weakened and distressed by pain-which would also help provide relief/decrease caregiver burden/strain. They have support in the area: 's family is settled in the [place] area. He works as a self-employed solar sales advisor and therefore is able to work from any location, and occasionally travels to [place] to meet with his clients. She has a sister that she is very close to and who does come to help her as needed but has she has recently moved to [facility] from [facility]. She is very close to her [id number] as well as her in-laws here in [place] and also has a very good and ongoing relationship with her parents who remain in [facility] but can easily drive to see her and have no significant health issues that would create limitations for they are traveling to see her and help her. Overall she feels that she is very well supported and would be ready for hospice. She wants to keep f/u with me in outpatient palliative medicine provider and notes that her care team in [facility] does not have palliative medicine there. I provided her with my contact information and she was agreeable to a follow-up outpatient appointment within 2 to 3 weeks of discharge. We discussed CODE STATUS and for now she wishes to change to DNR/DNI she does not want to in hospital or on machines (6) Primary cervical cancer with metastasis to other site: (7) SBO (small bowel obstruction): (8) Palliative care by specialist: Met with pt/family. Provided overview of Palliative Medicine, a subspecialty that provides specialized medical care for people living with a serious illness by offering a focus on quality of life. Palliative Medicine is often conflated with hospice: I advised patient/family that Palliative and hospice can be partners but we are not the same. It is important to understand the difference so that we may be informed, and not afraid. Palliative Medicine works to improve QOL through reduction of symptom burden/more control over their illness, for both the patient and family. Palliative medicine clinicians are board certified, specially-trained and another member of the patient's medical care team. We often provide an extra layer of support because our care is based on the needs of the patient, not the prognosis; as such, it's appropriate at any age/advancing stage of a serious illness and can be provided along with curative treatment. Palliative Medicine clinicians are also trained in advanced communication methodologies, to facilitate complex discussions about advanced illness planning, which are needed to help assure that the treatment choices match the patient's goals, aka delivering Goal Concordant care. Finally, we discussed that hospice is a visiting nurse service that focuses on care delivered at the very end of life for patients with terminal illness, with life expectancy less than 6 month. (9) Encounter for hospice care discussion: Plan ACP as noted above Code is no DNR/DNI orders written HOme with hospice when ready: she tells me she was going to meet with [facility] hospice at home today but was admitted - would like to speak with hospice while she is here and finalize plans. CM notified. Thank you for allowing us to participate in the ongoing care of this patient. Please don't hesitate to call or page with any additional concerns. Dr. Anita Duggan DNP Director, Palliative Care History of Present Illness Reason for Consultation: ACP Attending Physician: Nicholas Fung MD History of Present Illness Iraida Whitfield is well known to me from prior visit She had a scheduled OP clinic appt with me today which was cancelled and moved to this IP eval due to urgent admission for recurring SBO and overnight had surgery with Dr Elmore. Op notes reviewed, new colostomy right near midline. Iraida is feeling a lot better this morning. Feels surgery has made a substantial improvement. surgical site pain and pelvic pain from known cancer, for now well controlled and notes SBO pain nearly all gone but for residual tenderness and likely inflamm changes which will improve with time. She has an NGT but no nausea and no NGT output. She would like to try clear liquids and work to advance diet She is seen bedside with present They share that after speaking with oncology at [facility] satellite, no more chemo is planned and she pragmatically notes there has been no improvement in her pulm lesions which have continued to grow on current chemo Allergies Allergy/AdvReac Type Severity Reaction Status Date / Time cephalexin [From Keflex] Allergy Rash Verified 05/09/23 22:32 Home Medications Medication Instructions Recorded Confirmed Type cilostazol 50 mg tablet 50 mg PO BID 02/16/23 05/09/23 History cyclosporine 0.05 % eye drops in a 1 drp OPB BID 02/16/23 05/09/23 History dropperette (Restasis) fentanyl 12 mcg/hr transdermal 12 mcg transdermal Q72H 02/16/23 05/09/23 History patch gabapentin 100 mg capsule 200 mg PO BID 02/16/23 05/09/23 History melatonin 3 mg tablet 3 mg PO HS 02/16/23 05/09/23 History olanzapine 2.5 mg tablet 2.5 mg PO HS 02/16/23 05/09/23 History oxybutynin chloride 10 mg 10 mg PO PM 02/16/23 05/09/23 History tablet,extended release 24 hr polyethylene glycol 3350 17 gram 17 g PO DAILY 02/16/23 05/09/23 History oral powder packet (Miralax) varenicline 0.03 mg/spray nasal 1 spray intranasal BID 02/16/23 05/09/23 History spray (Tyrvaya) dronabinol 2.5 mg capsule 2.5 mg PO BID 03/28/23 05/09/23 History duloxetine 60 mg capsule,delayed 60 mg PO QAM 03/28/23 05/09/23 History release magnesium oxide 400 mg PO QAM 03/28/23 05/09/23 History sennosides 8.6 mg tablet (senna) 8.6 mg PO DAILY PRN Constipation 03/28/23 05/09/23 History dicyclomine 20 mg tablet 20 mg PO TID PRN Abdominal 04/25/23 05/09/23 History Discomfort potassium chloride 20 mEq 20 meq PO QAM 04/25/23 05/09/23 History tablet,extended release prednisone 20 mg tablet 40 mg PO QAM 04/25/23 05/09/23 History amoxicillin 875 mg-potassium 1 tab PO BIDM #34 tabs 05/07/23 05/09/23 Rx clavulanate 125 mg tablet enoxaparin 100 mg/mL subcutaneous 60 mg (0.6 mL) subcut BID #10 mL 05/07/23 05/09/23 Rx syringe hydrocodone-homatropine 5 mg-1.5 5 ml PO Q6H PRN cough #100 mL 05/07/23 05/09/23 Rx mg/5 mL oral syrup (Hydromet) lidocaine 5 % topical patch 1 patch transdermal QAM #30 ea 05/07/23 05/09/23 Rx magnesium oxide 400 mg (241.3 mg 400 mg PO BID #60 tabs 05/07/23 05/09/23 Rx magnesium) tablet metoprolol succinate 25 mg 12.5 mg (1/2 x 25 mg) PO QAM #15 05/07/23 05/09/23 Rx tablet,extended release 24 hr tabs pantoprazole 40 mg tablet,delayed 40 mg PO QAM #30 tabs 05/07/23 05/09/23 Rx release sulfamethoxazole 800 2 tab PO TID #60 tabs 05/07/23 05/09/23 Rx mg-trimethoprim 160 mg tablet (Bactrim DS) voriconazole 200 mg tablet (Vfend) 200 mg PO BID #66 tabs 05/07/23 05/09/23 Rx Patient History Medical History (Updated 05/11/23 @ 09:22 by Anita Duggan DNP) Encounter for hospice care discussion PCP (pneumocystis jiroveci pneumonia) Acute hypoxemic respiratory failure Bacterial infection due to streptococcus, group A Immunocompromised patient SBO (small bowel obstruction) Chronic deep vein thrombosis (DVT) Primary cervical cancer with metastasis to other site Surgical History (Updated 05/10/23 @ 12:27 by Radha Meza RN) H/O exploratory laparotomy (05/10/23) with colostomy creation Dr. Elmore 05/10/2023 History of vascular surgery history bilateral lower extremity thrombectomy and stenting History of appendectomy History of hysterectomy Family History Father Cancer Other No significant family history Social History Smoking Status: Never smoker Hx Alcohol Use: No Hx Substance Use: No Preferred Language: Ug[place]an Communication Ability: Effective Vest Front Presser Required: No Beliefs That Will Affect Care: Islam marital status: Current Living Situation: Spouse current occupational status: disabled How many Children do You have: 0 Feels Safe at Home: Yes Assistive Devices: Cane and Oxygen - Continuous Review of Systems Review of Systems: All systems reviewed & are unremarkable except as noted in Subjective Physical Exam Constitutional: + ill appearing, + cachectic, + frail ap pearing and cooperative Eyes: PERRL, conjunctivae normal, anicteric sclerae ENMT: Mouth: + dry oral mucous membranes Neck: trachea midline, no thyromegaly Respiratory: normal respiratory effort, able to speak in complete sentences and symmetric chest movement Cardiovascular: Rate/Rhythm: regular rate and regular rhythm Gastrointestinal (Abdomen): midline right ostomy, pink and +bowel sweat noted Musculoskeletal: generalized weakness Skin: + turgor decreased and + pallor Neurologic: PERRL, EOMI, accommodation nl, no face palsy, no dysarthria Psychiatric: A+Ox3, euthymic affect Affect: euthymic affect Cognition: recent memory grossly intact, remote memory grossly intact and attention grossly intact Estimated Intelligence: + above average estimated intelligence Insight: excellent insight Judgment: excellent judgement Results & Data Vital Signs (Past 12 Hours) Vital Signs Temp Pulse Pulse Resp BP BP Pulse Ox 05/11/23 07:39 36.6 C 102 H 20 108/72 98 05/11/23 02:33 36.6 C 92 H 18 102/67 93 05/11/23 02:21 36.7 C 94 H 15 117/66 94 05/11/23 01:33 36.6 C 97 H 24 120/77 95 05/11/23 00:49 99 H 05/11/23 00:33 36.5 C 99 H 18 104/71 94 05/10/23 23:33 36.8 C 96 H 20 114/72 94 05/10/23 23:03 36.8 C 97 H 14 110/67 95 05/10/23 22:48 36.6 C 97 H 15 107/67 95 05/10/23 22:33 36.7 C 96 H 14 108/68 94 05/10/23 22:02 36.7 C 100 H 14 112/67 05/10/23 22:00 O2 Del Method O2 Flow Rate 05/11/23 07:39 Nasal Cannula 5 05/11/23 02:33 2 05/11/23 02:21 3 05/11/23 01:33 2 05/11/23 00:49 05/11/23 00:33 2 05/10/23 23:33 2 05/10/23 23:03 3 05/10/23 22:48 05/10/23 22:33 05/10/23 22:02 05/10/23 22:00 Nasal Cannula 3 Laboratory Results data reviewed Diagnostic Findings data reviewed PG Care Time/CCT Total # of Minutes Spent Total Time Spent: 135 Total Time Spent with Patient: Total time spent is greater than 50% in coordination of care (as documented) at patient's floor/unit and/or counseling patient: I spent 135 minutes overall addressing this case: 15 min in medical data review/discussion with referring provider(s) and/or preparation for the visit 25 min in direct interaction with the patient/exam 60 min in Advance Care Planning/Goals of Care discussions as detailed above in note (must be >16min) 15 min in subsequent review and synthesis of assessment and plan 20 min communicating with other providers regarding the patient's case: Advanced Care Planning 47016 Advanced Care Planning 30 Min 31030 Advanced Care Planning Additional 30 [place] [address] IN/OBS CONSULT LVL 5,80M Patient Type New History Comprehensive Exam Comprehensive Medical Decision Making High Complexity Diagnoses Cancer related pain G89.3 Dyspnea and respiratory abnormalities R06.00; R06.89 Abdominal pain, generalized R10.84 Nausea & vomiting R11.2 Vomiting type: unspecified Advanced care planning/counseling discussion Z71.89 Primary cervical cancer with metastasis to other site C53.9 SBO (small bowel obstruction) K56.609 Palliative care by specialist Z51.5 Encounter for hospice care discussion Z71.89 Additional Codes Advanced Care Planning - 25937 Advanced Care Planning 30 Min: 14858 Advanced Care Planning 30 Min ([id number]) Advanced Care Planning - 06692 Advanced Care Planning Additional 30 Min: 95996 Advanced Care Planning Additional 30 Min ([id number])
[2023-05-11] MEDS: MAGNESIUM SULFATE / D5W 1 GM/100 ML BAG IV ONE (10:14)
[2023-05-11] MEDS: SODIUM CHLORIDE 0.9% 250 ML IV ONE (12:31)
[2023-05-11] MEDS: SODIUM CHLORIDE 0.9% 1,000 ML IV ONE ×2 (12:46→17:00)
--- NOTE | 2023-05-11 13:09 | Surgery Progress Note ---
<Statement entered by Agustin Elmore, - 05/11/23 16:38> Colostomy continues to function well and she is tolerating diet advancement. May move to a low fiber diet. May discharge home once H/H stable. Patient had a colonoscopy by GI this past December without significant findings. If H/H will not stabilize, may consider EGD prior to discharge. Follow up with me in the office in 1-2 weeks. Date of Service May 11, 2023 Assessment & Plan (1) Large bowel obstruction: Plan: s/p transverse colostomy and urgent colonic decompression wbc 12 (18) she is doing fairly well, pain tolerable. on clears without issues, no na usea/vomiting ostomy pink/viable and functioning well with + stool will allow full liquids, if this goes well may continue to adv diet as tolerates Admission and Anticipated Discharge Date Admission Date: May 10, 2023 Subjective Patient is doing well. Some expected post op pain, but is manageable with current regimen. Tolerating clears. no nausea/vomiting. Ostomy functioning Physical Exam Physical Exam: awake/alert, no distress Respiratory: normal respiratory effort Gastrointestinal (Abdomen): Inspection/Auscultation: + abdomen distended Percussion/Palpation: + abdomen tender (expected karmen incisional discomfort) and abdomen soft + viable ostomy. with + liquid brown sto ol in bag Results & Data Vital Signs (Past 12 Hours) Vital Signs Temp Pulse Pulse Pulse Resp BP BP 05/11/23 11:44 90/51 L 05/11/23 11:43 98.6 F 96 H 20 88/50 L 05/11/23 07:39 97.9 F 102 H 20 108/72 05/11/23 07:30 89 05/11/23 07:30 05/11/23 02:33 97.9 F 92 H 18 102/67 05/11/23 02:21 98.1 F 94 H 15 117/66 05/11/23 01:33 97.9 F 97 H 24 120/77 Pulse Ox O2 Del Method O2 Flow Rate 05/11/23 11:44 05/11/23 11:43 96 Nasal Cannula 3 05/11/23 07:39 98 Nasal Cannula 5 05/11/23 07:30 05/11/23 07:30 Nasal Cannula 3 05/11/23 02:33 93 2 05/11/23 02:21 94 3 05/11/23 01:33 95 2 PG Care Time/CCT Total # of Minutes Spent Total Time Spent with Patient: Total time spent is greater than 50% in coordination of care (as documented) at patient's floor/unit and/or counseling patient: Coding Level of Care Code 21198 Post Operative Follow-Up Diagnoses Large bowel obstruction K56.609
--- NOTE | 2023-05-11 16:42 | Hospitalist Progress Note ---
Date of Service May 11, 2023 Assessment & Plan (1) Sepsis: Plan: Sepsis Healthcare associated pneumonia Immunocompromised State Chronic steroid Rx for Keytruda pneumonitis Metastatic cervical cancer --CXR:Multifocal airspace consolidation throughout both lungs is similar to 05/03/2023 noting foci of cavitation. No large pleural effusion is seen. -- Blood culture: Negativeto date --Biofire negative -- Normal lactate, procalcitonin levels continue Zosyn Continue IV fluids Continue current management Large bowel obstruction H/O recurrent small bowel obstruction --CT ABD:Diffuse prominent gas and fluid distention of the distal small bowel and the entire colon to the level of the mid to distal sigmoid, which is decompressed and demonstrates concentric mucosal thickening overlying to approximately 4.3 cm. This demonstrates a similar pattern to the previous CT examination. Findings are most consistent with recurrent distal colonic obstruction. An underlying mass lesion is not excluded in the sigmoid colon. [place] syndrome with incidental contraction in the sigmoid colon is considered less likely. Small volume perihepatic and perisplenic ascites. No loculation. The right kidney remains atrophic. However, there is no prominent hydronephrosis with an abrupt transition at the UPJ. No obstructing ureteral stone noted in this area. Developing stenosis or functional obstruction may be present. --S/P Transverse colostomy and urgent colonic decompression by Dr. Elmore on 05/10/2023 --NG tube discontinued Advance to full liquid diet Pain control Appreciate surgery help + Bowel function Surgery following Stage IV cervical cancer with metastasis to lungs pelvis and vertebrae S/P surgery, radiation therapy and currently chemotherapy discontinued Poor prognosis as per oncologist per patient/family Patient/family requesting hospice evaluation Palliative care on board Acute on chronic anemia Likely multifactorial : Metastatic disease, epistaxis, Internal hemorrhoids, post surgery In setting of therapeutic Lovenox use for DVT Currently no epistaxis S/P 1 unit PRBC Monitor H&H and transfuse as needed Hb 8.4 today H/O DVT History of chronic DVT in right femoral vein. History of multiple lower extremity venous thrombectomy and stent procedures. Was on therapeutic Lovenox and Pletal Resume home medications as able--will check with surgery tomorrow Hypotension Sinus tachycardia--HR better Likely dehydration Cannot rule out adrenal insufficiency given chronic steroid use Received IV Decadron Continue IV Solu-Medrol--transition to oral steroids as able Continue IV fluids Other chronic conditions Recent streptococcal bacteremia--ongoing Augmentin Rx PJP/fungal pneumonia ongoing Bactrim and voriconazole Rx Anxiety disorder DVT Px: SCDs Re:Surgery, Significant Anemia Code Status DNI/DNR Likely will transition to hospice eventually Admission and Anticipated Discharge Date Admission Date: May 10, 2023 Subjective Patient is seen and examined at bedside Abdominal pain is controlled Less cough today Family at bedside Tolerating current diet Denies any nausea, vomiting, chest pain, dyspnea Review of Systems Review of Systems: All systems reviewed & are unremarkable except as noted in Subjective Physical Exam Physical Exam: Physical Exam: Vitals signs as noted above General Appearance: Thin, frail, chronic ill appearing, no apparent distress Head: normocephalic, Atraumatic Eyes: normal inspection, EOMI Neck: supple, Trachea midline Respiratory/Chest: Normal breath sounds, minimal crackles, No accessory muscle use Cardiovascular: S1, S2, No murmur Abdomen/GI:Soft, mild tender, +Colostomy, Bowel sounds present Extremities/Musculoskeletal:normal inspection, LE chronic lymphedema Neurologic/Psych:AAOX3, grossly no focal neurological deficits Skin: normal color, warm Results & Data Results & Data Vital Signs (Past 12 Hours) Vital Signs Temp Pulse Pulse Pulse Resp BP Pulse Ox 05/11/23 15:24 89 05/11/23 14:37 36.7 C 90 18 107/67 91 05/11/23 13:20 98/59 L 05/11/23 11:44 90/51 L 05/11/23 11:43 37.0 C 96 H 20 88/50 L 96 05/11/23 07:39 36.6 C 102 H 20 108/72 98 05/11/23 07:30 89 05/11/23 07:30 O2 Del Method O2 Flow Rate 05/11/23 15:24 05/11/23 14:37 Room Air 3 05/11/23 13:20 05/11/23 11:44 05/11/23 11:43 Nasal Cannula 3 05/11/23 07:39 Nasal Cannula 5 05/11/23 07:30 05/11/23 07:30 Nasal Cannula 3 Laboratory Results Short CBC 05/10/23 05/11/23 Range/Units 21:08 07:44 WBC 12.93 H (4.8-10.8) K/ul Hgb 6.9 L* 8.4 L (12.0-16.0) g/dl Hct 20.7 L* 25.5 L (37.0-47.0) % Plt Count 302 (130-400) K/uL BMP 05/11/23 07:44 Sodium 130 L Potassium 3.6 Chloride 102 Carbon Dioxide 23 BUN 13 Creatinine 0.45 L Glucose 91 Calcium 7.6 L (1) Sepsis Sepsis type: sepsis due to unspecified organism Sepsis acute organ dysfunction status: with acute organ dysfunction Severe sepsis acute organ dysfunction type: acute respiratory failure Acute respiratory failure type: with hypoxia Severe sepsis shock status: without septic shock Qualified Code(s): A41.9 - Sepsis, unspecified organism; R65.20 - Severe sepsis without septic shock; J96.01 - Acute respiratory failure with hypoxia
[2023-05-11] MEDS: HEPARIN SOD 5,000 UNIT/0.5 ML VIAL SQ SCH (20:53)
[2023-05-12 06:17] LABS: Hematocrit (blood only) 25.5 % (37.0-47.0); Hemoglobin 8.2 g/dl (12.0-16.0); Mean Corpuscular Hemoglobin 26.6 pg (25.0-34.0); Mean Corpuscular Hgb Conc 32.2 g/dL (32.0-36.0); Mean Corpuscular Volume 82.8 fL (80.0-100.0); Mean Platelet Volume 9.2 fL (9.4-12.4); Nucleated RBC # (auto) 0.14 K/uL (0.00-0.12); Nucleated RBC % (auto) 1.1 %; Platelet Count 257 K/uL (130-400); RDW Coefficient of Variation 22.6 % (11.5-14.5); RDW Standard Deviation 57.5 fL (36.4-46.3); Red Blood Count 3.08 M/uL (4.20-5.40); White Blood Count 12.36 K/ul (4.8-10.8)
[2023-05-12 06:33] LABS: Anion Gap 4 (3-11); BUN Creatinine Ratio 23.3 (10-20); Blood Urea Nitrogen 7 mg/dl (6-23); Calcium 7.8 mg/dl (8.6-10.3); Carbon Dioxide 24 mmol/L (21-32); Chloride 104 mmol/L (98-107); Creatinine Clr Calc Pharmacy 219.3 ml/min; Est GFR (African American) > 150.0 ml/min; Est GFR (Non-African American) 131.6 ml/min; Glucose 97 mg/dl (70-99(Fasting)); Magnesium 1.5 mg/dl (1.7-2.4); Potassium 3.9 mmol/L (3.5-5.1); Sodium 132 mmol/L (136-145)
[2023-05-12] MEDS: MAGNESIUM SULFATE / D5W 1 GM/100 ML BAG IV ONE (09:05)
[2023-05-12] MEDS: PROMETHAZINE HCL 6.25 MG in SODIUM CHLORIDE 0.9% 50 ML IV PRN (09:05)
[2023-05-12] MEDS: HEPARIN 100 UNIT/ML 5ML FLUSH FLUSH PRN (09:28)
--- NOTE | 2023-05-12 11:44 | Surgery Progress Note ---
Date of Service May 12, 2023 Assessment & Plan (1) H/O exploratory laparotomy: Plan: doing well advancing diet no surgical issues currently Admission and Anticipated Discharge Date Admission Date: May 10, 2023 Subjective pt seen. feeling well. rosa elena diet. stoma functioning Physical Exam Physical Exam: alert. nad abd: soft. stoma looks good with good output. Results & Data Vital Signs (Past 12 Hours) Vital Signs Temp Pulse Pulse Resp BP BP Pulse Ox 05/12/23 11:10 37.0 C 94 H 16 118/78 94 05/12/23 07:15 95 H 05/12/23 07:15 05/12/23 07:09 36.6 C 103 H 16 122/86 92 O2 Del Method O2 Flow Rate 05/12/23 11:10 Nasal Cannula 3 05/12/23 07:15 05/12/23 07:15 Nasal Cannula 3 05/12/23 07:09 Nasal Cannula 3 PG Care Time/CCT Total # of Minutes Spent Total Time Spent with Patient: Total time spent is greater than 50% in coordination of care (as documented) at patient's floor/unit and/or counseling patient: Coding Level of Care Code 47575 Post Operative Follow-Up Diagnoses H/O exploratory laparotomy Z98.890
--- NOTE | 2023-05-12 13:31 | Hospitalist Progress Note ---
Date of Service May 12, 2023 Assessment & Plan (1) Sepsis: Plan: Sepsis Healthcare associated pneumonia Immunocompromised State Chronic steroid Rx for Keytruda pneumonitis Metastatic cervical cancer Chronic respiratory failure with hypoxia: On 3 L at rest and 6 L with activity --CXR:Multifocal airspace consolidation throughout both lungs is similar to 05/03/2023 noting foci of cavitation. No large pleural effusion is seen. -- Blood culture: Negative to date --Biofire negative -- Normal lactate, procalcitonin levels continue Zosyn Received IV fluids Transition to p.o. antibiotics as able Saturating well on baseline supplemental oxygen Large bowel obstruction H/O recurrent small bowel obstruction --CT ABD:Diffuse prominent gas and fluid distention of the distal small bowel and the entire colon to the level of the mid to distal sigmoid, which is decompressed and demonstrates concentric mucosal thickening overlying to approximately 4.3 cm. This demonstrates a similar pattern to the previous CT examination. Findings are most consistent with recurrent distal colonic obstruction. An underlying mass lesion is not excluded in the sigmoid colon. [place] syndrome with incidental contraction in the sigmoid colon is considered less likely. Small volume perihepatic and perisplenic ascites. No loculation. The right kidney remains atrophic. However, there is no prominent hydronephrosis with an abrupt transition at the UPJ. No obstructing ureteral stone noted in this area. Developing stenosis or functional obstruction may be present. --S/P Transverse colostomy and urgent colonic decompression by Dr. Elmore on 05/10/2023 --NG tube discontinued Pain control Appreciate surgery help + Bowel function Advanced to regular low fiber diet Stage IV cervical cancer with metastasis to lungs pelvis and vertebrae S/P surgery, radiation therapy and currently chemotherapy discontinued Poor prognosis as per oncologist per patient/family Patient/family requesting hospice evaluation Palliative care on board Acute on chronic anemia Likely multifactorial : Metastatic disease, epistaxis, Internal hemorrhoids, post surgery In setting of therapeutic Lovenox use for DVT Currently no epistaxis S/P 1 unit PRBC Monitor H&H and transfuse as needed Hb 8.2 today H/O DVT History of chronic DVT in right femoral vein. History of multiple lower extremity venous thrombectomy and stent procedures. Was on therapeutic Lovenox and Pletal Plan to resume Pletal as able Resume Lovenox today: Ok with surgery. Discussed with Dr. Garza on 05/12/2023 Hypotension Sinus tachycardia--HR better Likely dehydration Cannot rule out adrenal insufficiency given chronic steroid use Received IV Decadron Continue IV Solu-Medrol--transition to oral steroids as able Received IV fluids Other chronic conditions Recent streptococcal bacteremia--ongoing Augmentin Rx PJP/fungal pneumonia ongoing Bactrim and voriconazole Rx Anxiety disorder DVT Px: SCDs Lovenox SQ Code Status DNI/DNR Likely will transition to hospice eventually Admission and Anticipated Discharge Date Admission Date: May 10, 2023 Subjective Patient is seen and examined at bedside Cough much improved Tolerating current diet Abdominal pain is controlled Denies any vomiting, chest pain, dyspnea, dizziness No other complaints Family at bedside Review of Systems Review of Systems: All systems reviewed & are unremarkable except as noted in Subjective Physical Exam Physical Exam: Physical Exam: Vitals signs as noted above General Appearance: Thin, frail, chronic ill appearing, no apparent distress Head: normocephalic, Atraumatic Eyes: normal inspection, EOMI Neck: supple, Trachea midline Respiratory/Chest: Normal breath sounds, minimal crackles, No accessory muscle use Cardiovascular: S1, S2, No murmur Abdomen/GI:Soft, mild tender, +Colostomy, Bowel sounds present Extremities/Musculoskeletal:normal inspection, LE chronic lymphedema Neurologic/Psych:AAOX3, grossly no focal neurological deficits Skin: normal color, warm Results & Data Results & Data Vital Signs (Past 12 Hours) Vital Signs Temp Pulse Pulse Resp BP BP Pulse Ox 05/12/23 11:10 37.0 C 94 H 16 118/78 94 05/12/23 07:15 95 H 05/12/23 07:15 05/12/23 07:09 36.6 C 103 H 16 122/86 92 O2 Del Method O2 Flow Rate 05/12/23 11:10 Nasal Cannula 3 05/12/23 07:15 05/12/23 07:15 Nasal Cannula 3 05/12/23 07:09 Nasal Cannula 3 Laboratory Results Short CBC 05/12/23 Range/Units 05:48 WBC 12.36 H (4.8-10.8) K/ul Hgb 8.2 L (12.0-16.0) g/dl Hct 25.5 L (37.0-47.0) % Plt Count 257 (130-400) K/uL BMP 05/12/23 05:48 Sodium 132 L Potassium 3.9 Chloride 104 Carbon Dioxide 24 BUN 7 Creatinine 0.30 L Glucose 97 Calcium 7.8 L (1) Sepsis Acute respiratory failure type: with hypoxia Sepsis acute organ dysfunction status: with acute organ dysfunction Sepsis type: sepsis due to unspecified organism Severe sepsis acute organ dysfunction type: acute respiratory failure Severe sepsis shock status: without septic shock Qualified Code(s): A41.9 - Se psis, unspecified organism; R65.20 - Severe sepsis without septic shock; J96.01 - Acute respiratory failure with hypoxia
[2023-05-12] MEDS: MoRPHine SULFATE 2 MG/ML CARP IV PRN (15:35)
[2023-05-12] MEDS ORDERED: ENOXAPARIN 100 MG/1ML SYR SQ SCH (21:00)
[2023-05-12] MEDS: MoRPHine SULFATE 10 MG/0.5 ML UDP PO PRN (21:45)
[2023-05-12] MEDS: MAGNESIUM CHLORIDE W/CALCIUM 64MG DELAYED REL TAB PO SCH (21:46)
[2023-05-12] MEDS: ENOXAPARIN INJ 60 MG/0.6 ML SYR SQ SCH (21:48)
[2023-05-13 06:59] LABS: Hematocrit (blood only) 28.9 % (37.0-47.0); Hemoglobin 9.2 g/dl (12.0-16.0); Mean Corpuscular Hemoglobin 26.4 pg (25.0-34.0); Mean Corpuscular Hgb Conc 31.8 g/dL (32.0-36.0); Mean Platelet Volume 9.4 fL (9.4-12.4); Nucleated RBC # (auto) 0.04 K/uL (0.00-0.12); Nucleated RBC % (auto) 0.3 %; Platelet Count 298 K/uL (130-400); RDW Coefficient of Variation 24.6 % (11.5-14.5); RDW Standard Deviation 63.2 fL (36.4-46.3); Red Blood Count 3.48 M/uL (4.20-5.40); White Blood Count 12.78 K/ul (4.8-10.8)
[2023-05-13 07:28] LABS: Anion Gap 6 (3-11); BUN Creatinine Ratio 24.1 (10-20); Blood Urea Nitrogen 7 mg/dl (6-23); Calcium 8.4 mg/dl (8.6-10.3); Carbon Dioxide 26 mmol/L (21-32); Chloride 102 mmol/L (98-107); Creatinine Clr Calc Pharmacy 213.3 ml/min; Est GFR (African American) > 150.0 ml/min; Est GFR (Non-African American) 133.1 ml/min; Glucose 104 mg/dl (70-99(Fasting)); Magnesium 1.4 mg/dl (1.7-2.4); Potassium 3.8 mmol/L (3.5-5.1); Sodium 134 mmol/L (136-145)
[2023-05-13] MEDS: MAGNESIUM SULFATE / D5W 1 GM/100 ML BAG IV SCH (09:00)
[2023-05-13] MEDS: ADVANCED PROBIOTIC 1250 MG CAPSULE PO SCH (10:14)
[2023-05-13] MEDS ORDERED: ONDANSETRON INJ 2 MG/ML 2 ML VIAL IV PRN (10:33)
--- NOTE | 2023-05-13 11:19 | Surgery Progress Note ---
Date of Service May 13, 2023 Assessment & Plan (1) Large bowel obstruction: Plan: Pt reports doing well + colostomy output, Red beefy had some mild upset stomach this AM , given zofran feeling better No n/v Patient waiting on hospice to set up home care and discharge needs Stable from surgical stand point Admission and Anticipated Discharge Date Admission Date: May 10, 2023 Subjective Pt reports doing well + colostomy output had some mild upset stomach this AM , given zofran feeling better No n/v Review of Systems Constitutional: no fever and no chills Gastrointestinal: + abdominal pain (mild from surgery ); n o nausea and no vomiting Genitourinary: rice cath Physical Exam Physical Exam: alert oriented , pleasant Constitutional: cooperative and comfortable; no acute distress Cardiovascular: Rate/Rhythm: + tachycardic (91) Gastrointestinal (Abdomen): Percussion/Palpation: abdomen soft ostomy red beefy Psychiatric: A+Ox3, euthymic affect Results & Data Vital Signs (Past 12 Hours) Vital Signs Temp Pulse Pulse Resp BP BP Pulse Ox 05/13/23 07:20 97.7 F 91 H 16 125/80 94 05/13/23 07:15 107 H 05/13/23 07:15 05/13/23 03:14 97.9 F 102 H 20 108/64 92 O2 Del Method O2 Flow Rate 05/13/23 07:20 Nasal Cannula 3 05/13/23 07:15 05/13/23 07:15 Nasal Cannula 3 05/13/23 03:14 Nasal Cannula 3.0 PG Care Time/CCT Total # of Minutes Spent Total Time Spent with Patient: Total time spent is greater than 50% in coordination of care (as documented) at patient's floor/unit and/or counseling patient: Coding Level of Care Code 83179 Post Operative Follow-Up Diagnoses Large bowel obstruction K56.609
[2023-05-13] MEDS: LIDOCAINE 5% 1 PATCH TD SCH (11:30)
--- NOTE | 2023-05-13 14:24 | Hospitalist Progress Note ---
Date of Service May 13, 2023 Assessment & Plan (1) Sepsis: Plan: Sepsis Healthcare associated pneumonia Immunocompromised State Chronic steroid Rx for Keytruda pneumonitis Metastatic cervical cancer Chronic respiratory failure with hypoxia: On 3 L at rest and 6 L with activity --CXR:Multifocal airspace consolidation throughout both lungs is similar to 05/03/2023 noting foci of cavitation. No large pleural effusion is seen. -- Blood culture: Negative to date --Biofire negative -- Normal lactate, procalcitonin levels continue Zosyn Received IV fluids Transition to p.o. antibiotics on discharge Saturating well on baseline supplemental oxygen Afebrile today Persistent leukocytosis likely due to chronic steroids Likely discharge in 1 to 2 days with hospice services Large bowel obstruction H/O recurrent small bowel obstruction --CT ABD:Diffuse prominent gas and fluid distention of the distal small bowel and the entire colon to the level of the mid to distal sigmoid, which is decompressed and demonstrates concentric mucosal thickening overlying to approximately 4.3 cm. This demonstrates a similar pattern to the previous CT examination. Findings are most consistent with recurrent distal colonic obst ruction. An underlying mass lesion is not excluded in the sigmoid colon. [place] syndrome with incidental contraction in the sigmoid colon is considered less likely. Small volume perihepatic and perisplenic ascites. No loculation. The right kidney remains atrophic. However, there is no prominent hydronephrosis with an abrupt transition at the UPJ. No obstructing ureteral stone noted in this area. Developing stenosis or functional obstruction may be present. --S/P Transverse colostomy and urgent colonic decompression by Dr. Elmore on 05/10/2023 --NG tube discontinued Pain control Appreciate surgery help + Bowel function Advanced to regular low fiber diet Needs follow-up with surgery on discharge Hypomagnesemia Replete electrolytes as needed Monitor Stage IV cervical cancer with metastasis to lungs pelvis and vertebrae S/P surgery, radiation therapy and currently chemotherapy discontinued Poor prognosis as per oncologist per patient/family Patient/family requesting hospice evaluation Palliative care on board Acute on chronic anemia Likely multifactorial : Metastatic disease, epistaxis, Internal hemorrhoids, post surgery In setting of therapeutic Lovenox use for DVT Currently no epistaxis S/P 1 unit PRBC Monitor H&H and transfuse as needed Hb 9.2 today H/O DVT History of chronic DVT in right femoral vein. History of multiple lower extremi ty venous thrombectomy and stent procedures. Was on therapeutic Lovenox and Pletal Plan to resume Pletal as able Resumed Lovenox on 05/12/23: Ok with surgery. Discussed with Dr. Garza on 05/12/2023 Hypotension Sinus tachycardia Likely dehydration Cannot rule out adrenal insufficiency given chronic steroid use Received IV Decadron and IV Solu-Medrol Continue prednisone 40 mg daily Received IV fluids Other chronic conditions Recent streptococcal bacteremia--ongoing Augmentin Rx PJP/fungal pneumonia ongoing Bactrim and voriconazole Rx Anxiety disorder DVT Px: SCDs Lovenox SQ Code Status DNI/DNR Likely will transition to hospice eventually Admission and Anticipated Discharge Date Admission Date: May 10, 2023 Subjective Patient is seen and examined at bedside Reported back pain to RN Still has some cough Abdominal pain improved Denies any chest pain, dyspnea, dizziness, nausea, vomiting Family at bedside Review of Systems Review of Systems: All systems reviewed & are unremarkable except as noted in Subjective Physical Exam Physical Exam: Physical Exam: Vitals signs as noted above General Appearance: Thin, frail, chronic ill appearing, no apparent distress Head: normocephalic, Atraumatic Eyes: normal inspection, EOMI Neck: supple, Trachea midline Respiratory/Chest: Normal breath sounds, minimal crackles, No accessory muscle use Cardiovascular: S1, S2, No murmur Abdomen/GI:Soft, mild tender, +Colostomy, Bowel sounds present Extremities/Musculoskeletal:normal inspection, LE chronic lymphedema Neurologic/Psych:AAOX3, grossly no focal neurological deficits Skin: normal color, warm Results & Data Results & Data Vital Signs (Past 12 Hours) Vital Signs Temp Pulse Pulse Resp BP BP Pulse Ox 05/13/23 11:17 37.0 C 84 20 113/72 94 05/13/23 07:20 36.5 C 91 H 16 125/80 94 05/13/23 07:15 107 H 05/13/23 07:15 05/13/23 03:14 36.6 C 102 H 20 108/64 92 O2 Del Method O2 Flow Rate 05/13/23 11:17 Nasal Cannula 3 05/13/23 07:20 Nasal Cannula 3 05/13/23 07:15 05/13/23 07:15 Nasal Cannula 3 05/13/23 03:14 Nasal Cannula 3.0 Laboratory Results Short CBC 05/13/23 Range/Units 06:20 WBC 12.78 H (4.8-10.8) K/ul Hgb 9.2 L (12.0-16.0) g/dl Hct 28.9 L (37.0-47.0) % Plt Count 298 (130-400) K/uL [facility] 05/13/23 06:20 Sodium 134 L Potassium 3.8 Chloride 102 Carbon Dioxide 26 BUN 7 Creatinine 0.29 L Glucose 104 H Calcium 8.4 L (1) Sepsis Sepsis type: sepsis due to unspecified organism Sepsis acute organ dysfunction status: with acute organ dysfunction Severe sepsis acute organ dysfunction type: acute respiratory failure Acute respiratory failure type: with hypoxia Severe sepsis shock status: without septic shock Qualified Code(s): A41.9 - Sepsis, unspecified organism; R65.20 - Severe sepsis without septic shock; J96.01 - Acute respiratory failure with hypoxia
[2023-05-14 06:40] LABS: Hematocrit (blood only) 27.6 % (37.0-47.0); Hemoglobin 8.9 g/dl (12.0-16.0)
[2023-05-14] MEDS: predniSONE 20 MG TAB PO SCH (09:42)
[2023-05-14] MEDS: MAGNESIUM OXIDE 400 MG TAB PO SCH (09:42)
[2023-05-14] MEDS: cilostazoL 100 MG TAB PO SCH (09:43)
[2023-05-14] MEDS: droNABinol 2.5 MG CAP PO SCH (09:56)
[2023-05-14] MEDS: MAGNESIUM SULFATE / D5W 1 GM/100 ML BAG IV SCH (09:57)
--- NOTE | 2023-05-14 12:04 | Surgery Progress Note ---
Date of Service May 14, 2023 Assessment & Plan (1) Large bowel obstruction: (2) GIB (gastrointestinal bleeding): Plan: H/H so far stable since last transfusion 2 days ago. Consider endoscopy if it begins to trend down. Bowel obstruction resolved with transverse colostomy, POD 4. Doing well. Follow up with me in the office a week after discharge. Re-consult surgery as needed. Admission and Anticipated Discharge Date Admission Date: May 10, 2023 Subjective Patient states she feels well this am. Had a queazy stomach two mornings over this weekend that was relieved with antiemetics. Says she has not had that feeling since. She denies any nausea or vomiting. Physical Exam Gastrointestinal (Abdomen): Stoma is viable, functioning Results & Data Vital Signs (Past 12 Hours) Vital Signs Temp Pulse Resp BP Pulse Ox O2 Del Method O2 Flow Rate 05/14/23 11:55 36.7 C 102 H 18 101/76 93 Nasal Cannula 3.0 05/14/23 09:00 Nasal Cannula 3 05/14/23 08:09 37.0 C 102 H 20 121/76 92 Nasal Cannula 3.0 05/14/23 03:00 36.5 C 90 19 125/73 92 Nasal Cannula 05/14/23 00:16 Nasal Cannula 3 PG Care Time/CCT Total # of Minutes Spent Total Time Spent with Patient: Total time spent is greater than 50% in coordination of care (as documented) at patient's floor/unit and/or counseling patient: Coding Level of Care Code 06145 Post Operative Follow-Up Diagnoses Large bowel obstruction K56.609 GIB (gastrointestinal bleeding) K92.2 GI bleed type/associated pathology: unspecified gastrointestinal hemorrhage type (2) GIB (gastrointestinal bleeding) GI bleed type/associated pathology: unspecified gastrointestinal hemorrhage type Qualified Code(s): K92.2 - Gastrointestinal hemorrhage, unspecified
--- NOTE | 2023-05-14 12:43 | Hospitalist Progress Note ---
Date of Service May 14, 2023 Assessment & Plan (1) Sepsis: Plan: Sepsis Healthcare associated pneumonia Immunocompromised State Chronic steroid Rx for Keytruda pneumonitis Metastatic cervical cancer Chronic respiratory failure with hypoxia: On 3 L at rest and 6 L with activity --CXR:Multifocal airspace consolidation throughout both lungs is similar to 05/03/2023 noting foci of cavitation. No large pleural effusion is seen. -- Blood culture: Negative to date --Biofire negative -- Normal lactate, procalcitonin levels continue Zosyn while hospitalized Received IV fluids Transition to Augmentin on discharge Saturating well on baseline supplemental oxygen Afebrile today Persistent leukocytosis likely due to chronic steroids Plan to discharge home today Large bowel obstruction H/O recurrent small bowel obstruction --CT ABD:Diffuse prominent gas and fluid distention of the distal small bowel and the entire colon to the level of the mid to distal sigmoid, which is decompressed and demonstrates concentric mucosal thickening overlying to approximately 4.3 cm. This demonstrates a similar pattern to the previous CT examination. Findings are most consistent with recurrent distal colonic obstruction. An underlying mass lesion is not excluded in the sigmoid colon. [place] syndrome with incidental contraction in the sigmoid colon is considered less likely. Small volume perihepatic and perisplenic ascites. No loculation. The right kidney remains atrophic. However, there is no prominent hydronephrosis with an abrupt transition at the UPJ. No obstructing ureteral stone noted in this area. Developing stenosis or functional obstruction may be present. --S/P Transverse colostomy and urgent colonic decompression by Dr. Elmore on 05/10/2023 --NG tube discontinued Pain control Appreciate surgery help + Bowel function Advanced to regular low fiber diet Needs follow-up with surgery on discharge Hypomagnesemia Replete electrolytes as needed Monitor Stage IV cervical cancer with metastasis to lungs pelvis and vertebrae S/P surgery, radiation therapy and currently chemotherapy discontinued Poor prognosis as per oncologist per patient/family Patient/family requesting hospice evaluation Palliative care on board Acute on chronic anemia Likely multifactorial : Metastatic disease, epistaxis, Internal hemorrhoids, post surgery In setting of therapeutic Lovenox use for DVT Currently no epistaxis S/P 1 unit PRBC Monitor H&H and transfuse as needed Hb 8.9 today H/O DVT History of chronic DVT in right femoral vein. History of multiple lower extremity venous thrombectomy and stent procedures. Was on therapeutic Lovenox and Pletal Plan to resume Pletal as able Resumed Lovenox on 05/12/23: Ok with surgery. Discussed with Dr. Garza on 05/12/2023 Hypotension Sinus tachycardia Likely dehydration Cannot rule out adrenal insufficiency given chronic steroid use Received IV Decadron and IV Solu-Medrol Continue prednisone 40 mg daily Received IV fluids Other chronic conditions Recent streptococcal bacteremia--ongoing Augmentin Rx PJP/fungal pneumonia ongoing Bactrim and voriconazole Rx Anxiety disorder DVT Px: SCDs Lovenox SQ Code Status DNI/DNR Likely will transition to hospice eventually Admission and Anticipated Discharge Date Admission Date: May 10, 2023 Subjective Patient is seen and examined at bedside States feeling better today Cough continues to improve Abdominal pain is controlled No other new complaints Denies any chest pain, dyspnea, dizziness, nausea, vomiting Family at bedside Review of Systems Review of Systems: All systems reviewed & are unremarkable except as noted in Subjective Physical Exam Physical Exam: Physical Exam: Vitals signs as noted above General Appearance: Thin, frail, chronic ill appearing, no apparent distress Head: normocephalic, Atraumatic Eyes: normal inspection, EOMI Neck: supple, Trachea midline Respiratory/Chest: Normal breath sounds, minimal crackles, No accessory muscle use Cardiovascular: S1, S2, No murmur Abdomen/GI:Soft, mild tender, +Colostomy, Bowel sounds present Extremities/Musculoskeletal:normal inspection, LE chronic lymphedema Neurologic/Psych:AAOX3, grossly no focal neurological deficits Skin: normal color, warm Results & Data Results & Data Vital Signs (Past 12 Hours) Vital Signs Temp Pulse Resp BP Pulse Ox O2 Del Method O2 Flow Rate 05/14/23 11:55 36.7 C 102 H 18 101/76 93 Nasal Cannula 3.0 05/14/23 09:00 Nasal Cannula 3 05/14/23 08:09 37.0 C 102 H 20 121/76 92 Nasal Cannula 3.0 05/14/23 03:00 36.5 C 90 19 125/73 92 Nasal Cannula Laboratory Results Short CBC 05/14/23 Range/Units 05:47 Hgb 8.9 L (12.0-16.0) g/dl Hct 27.6 L (37.0-47.0) % (1) Sepsis Sepsis type: sepsis due to unspecified organism Sepsis acute organ dysfunction status: with acute organ dysfunction Severe sepsis acute organ dysfunction type: acute respiratory failure Acute respiratory failure type: with hypoxia Severe sepsis shock status: without septic shock Qualified Code(s): A41.9 - Sepsis, unspecified organism; R65.20 - Severe sepsis without septic shock; J96.01 - Acute respiratory failure with hypoxia
--- NOTE | 2023-05-14 12:53 | Discharge Summary ---
Date of Service May 14, 2023 Admission HPI Per Admitting Provider History obtained from patient and records. Medical history significant for metastatic cervical cancer status post surgery/radiation therapy currently off chemotherapy, recent streptococcal bacteremia ongoing Augmentin Rx, PJP/fungal pneumonia ongoing Bactrim and voriconazole Rx, chronic steroid Rx for Keytruda pneumonitis, history DVT status post surgery on therapeutic Lovenox and Pletal Rx, chronic anemia (baseline hemoglobin of 8-9), chronic pain on fentanyl patch, internal hemorrhoids, anxiety disorder. Monthly admissions since January 2023 for recurrent bowel obstruction resolved with conservative management. Recent confinement April 25 to May 07, 2023 for sepsis secondary to group A streptococcus secondary to LLE cellulitis, PJP/fungal pneumonia, recurrent SBO. New medications on discharge as follows as per ID recommendations: Augmentin 875/125 streptococcal bacteremia 1 po bid to complete 4 week therapy (last dose 05/24/23) Bactrim DS 2 tabs po TID for PJP pneumonia (last dose 05/17/23) Voriconazole 200mg po BID (tentative last dose 06/09/23 ) or until seen by pulm or ID Pulmonary and ID follow-up, repeat CT chest recommended 2 weeks after discharge. Patient and made a decision to stop chemotherapy last week because they feel medication not working given recurrent admissions over the last 3 months. Follow-up appointment contemplated with oncologist from [facility]. Patient slated to see [facility] palliative care tomorrow to discuss goals of care. Last night, patient noted epistaxis episodes without headache complaints. Subsequent junky cough symptoms productive of white sputum mixed with blood. No unusual chest pain, SOB. Denies black/bloody stools. This morning, patient noted worsening achy generalized abdominal pain followed by nausea, bilious emesis. Consulted ER for evaluation. Initial SBP at the ER noted to be 90s. Heme positive brown stool documented at the ER. IV PPI, Zosyn administered at the ER. 1 unit packed RBC transfused at the ER. 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 Admission Exam Per Admitting Provider GENERAL: uncomfortable, anxious, chronically ill, no respiratory distress SKIN: Pallor, warm HEENT: Pale palpebral conjunctivae, no ptosis, dry buccal mucosa NECK : Supple, no tenderness CHEST : Decreased breath sounds, no tenderness HEART : Tachycardic, no obvious murmurs ABDOMEN: Marked abdominal distention, central abdominal tenderness EXTREMITIES : Minimal LE swelling, no LE tenderness, no other conspicuous deformities noted NEUROLOGIC : Coherent, no facial asymmetry, no other gross focality Principal Diagnosis Sepsis Healthcare associated pneumonia Large bowel obstruction S/P colostomy Hypomagnesemia Discharge Data Allergies Allergy/AdvReac Type Severity Reaction Status Date / Time cephalexin [From Keflex] Allergy Rash Verified 05/09/23 22:32 Consultations 05/09/23 23:11 ED Decision to Admit Stat 05/10/23 00:21 Consult Palliative Care Routine 05/10/23 01:19 Consult General Surgery Routine Procedures Performed Operation Date: 05/10/23 03:30 Actual Procedures p Explortatory Laparotomy and Creation of Colostomy - Agustin Elmore, Laboratory Results WBC 12.78 K/ul (4.8-10.8) H 05/13/23 06:20 RBC 3.48 M/uL (4.20-5.40) L 05/13/23 06:20 Hgb 8.9 g/dl (12.0-16.0) L 05/14/23 05:47 POC Hgb 7.5 g/dl (12.0-16.0) L 05/09/23 21:39 Hct 27.6 % (37.0-47.0) L 05/14/23 05:47 POC Hct 22 % (37-47) L 05/09/23 21:39 MCV 83.0 fL (80.0-100.0) 05/13/23 06:20 MCH 26.4 pg (25.0-34.0) 05/13/23 06:20 MCHC 31.8 g/dL (32.0-36.0) L 05/13/23 06:20 RDW Std Deviation 63.2 fL (36.4-46.3) H 05/13/23 06:20 RDW Coeff of Luis 24.6 % (11.5-14.5) H 05/13/23 06:20 Plt Count 298 K/uL (130-400) 05/13/23 06:20 MPV 9.4 fL (9.4-12.4) 05/13/23 06:20 Immature Gran % (Auto) 10.0 % 05/10/23 03:18 Neut % (Auto) 84.4 % 05/10/23 03:18 Lymph % (Auto) 2.1 % 05/10/23 03:18 Cotton % (Auto) 2.9 % 05/10/23 03:18 Eos % (Auto) 0.2 % 05/10/23 03:18 Baso % (Auto) 0.4 % 05/10/23 03:18 Neut # (Auto) 15.37 K/uL (1.40-6.50) H 05/10/23 03:18 Lymph # (Auto) 0.39 K/uL (1.20-3.40) L 05/10/23 03:18 Cotton # (Auto) 0.53 K/uL (0.11-0.59) 05/10/23 03:18 Eos # (Auto) 0.04 K/uL (0.00-0.50) 05/10/23 03:18 Baso # (Auto) 0.08 K/uL (0.00-0.20) 05/10/23 03:18 Immature Gran # (Auto) 1.83 K/uL (0.01-0.20) H 05/10/23 03:18 Absolute Nucleated RBC 0.04 K/uL (0.00-0.12) 05/13/23 06:20 Nucleated RBC % (auto) 0.3 % 05/13/23 06:20 Neutrophils % (Manual) 87 % 05/09/23 21:38 Lymphocytes % (Manual) 6 % 05/09/23 21:38 Monocytes % (Manual) 3 % 05/09/23 21:38 Metamyelocytes % (Man) 1 % 05/09/23 21:38 Myelocytes % (Man) 3 % 05/09/23 21:38 Neutrophils # (Manual) 19.75 K/uL (1.40-6.50) H 05/09/23 21:38 Total Absolute Neuts 19.75 K/uL (1.4-6.5) H 05/09/23 21:38 Lymphocytes # (Manual) 1.36 K/uL (1.2-3.4) 05/09/23 21:38 Total Abs Lymphocytes 1.36 K/uL (1.2-3.4) 05/09/23 21:38 Monocytes # (Manual) 0.68 K/uL (0.11-0.59) H 05/09/23 21:38 Metamyelocytes # (Man) 0.23 K/uL (0-0) H 05/09/23 21:38 Myelocytes # (Manual) 0.68 K/uL (0-0) H 05/09/23 21:38 Polychromasia 1+ 05/10/23 03:18 Anisocytosis Present 05/10/23 03:18 Tear Drop Cells 1+ 05/10/23 03:18 Ovalocytes 1+ 05/10/23 03:18 Echinocytes 1+ 05/10/23 03:18 PT 11.5 Seconds (9.0-12.0) 05/09/23 21:38 INR 1.1 (0.9-1.1) 05/09/23 21:38 APTT 22 Seconds (21-31) 05/09/23 21:38 PTT Ratio 0.8 05/09/23 21:38 VBG pH 7.38 (7.36-7.41) 05/09/23 21:38 VBG pCO2 43 mmHg (38-50) 05/09/23 21:38 VBG pO2 31 mmHg 05/09/23 21:38 VBG HCO3 25 mmol/L 05/09/23 21:38 VBG O2 Saturation < 60.0 % 05/09/23 21:38 VBG Base Excess 0 mEq/L 05/09/23 21:38 POC Sodium 131 mmol/L (135-144) L 05/09/23 21:39 Sodium 134 mmol/L (136-145) L 05/13/23 06:20 POC Potassium 3.9 mmol/L (3.3-5.0) 05/09/23 21:39 Potassium 3.8 mmol/L (3.5-5.1) 05/13/23 06:20 POC Chloride 98 mmol/L (101-112) L 05/09/23 21:39 Chloride 102 mmol/L (98-107) 05/13/23 06:20 Carbon Dioxide 26 mmol/L (21-32) 05/13/23 06:20 POC Total CO2 26 mmol/L (24-31) 05/09/23 21:39 Anion Gap 6 (3-11) 05/13/23 06:20 POC Anion Gap 12.0 mmol/L (16-25) L 05/09/23 21:39 POC BUN 22 mg/dl (7-18) H 05/09/23 21:39 BUN 7 mg/dl (6-23) 05/13/23 06:20 Creatinine 0.29 mg/dl (0.6-1.2) L 05/13/23 06:20 POC Creatinine 0.5 mg/dl (0.6-1.3) L 05/09/23 21:39 Est Cr Clr Drug Dosing 213.3 ml/min 05/13/23 06:20 Est GFR ( Amer) > 150.0 ml/min 05/13/23 06:20 Est GFR (Non-Af Amer) 133.1 ml/min 05/13/23 06:20 BUN/Creatinine Ratio 24.1 (10-20) H 05/13/23 06:20 Glucose 104 mg/dl (70-99(Fasting)) H 05/13/23 06:20 POC Glucose (other) 96 mg/dl (70-99) 05/09/23 21:39 Lactate 1.5 mmol/L (0.4-2.0) 05/09/23 21:38 Calcium 8.4 mg/dl (8.6-10.3) L 05/13/23 06:20 POC Ioniz Calcium Megan 1.19 mmol/l (1.12-1.32) 05/09/23 21:39 Magnesium 1.5 mg/dl (1.7-2.4) L 05/14/23 05:47 Total Bilirubin 0.3 mg/dl (0.2-1.0) 05/10/23 03:15 Direct Bilirubin 0.0 mg/dl (0-0.2) 05/09/23 21:38 AST 11 U/L (13-39) L 05/10/23 03:15 ALT 8 U/L (7-52) 05/10/23 03:15 Alkaline Phosphatase 100 U/L (34-104) 05/10/23 03:15 Troponin I High Sens 17.0 pg/ml (0-14) H 05/10/23 03:15 Total Protein 5.1 gm/dl (6.0-8.3) L 05/10/23 03:15 Albumin 2.8 gm/dl (3.4-5.0) L 05/10/23 03:15 Globulin 2.3 gm/dl (2.5-4.0) L 05/10/23 03:15 Albumin/Globulin Ratio 1.2 (0.9-2) 05/10/23 03:15 Procalcitonin 0.25 ng/ml (0-0.5) 05/09/23 21:38 TSH 2.012 uIu/ml (0.300-4.500) 05/10/23 03:15 Cortisol AM Sample 4.95 mcg/dl (6.2-22.6) L 05/11/23 07:44 Urine Color Yellow 05/10/23 00:55 Urine Appearance Turbid (Clear) A 05/10/23 00:55 Urine pH 7.5 (4.5-7.5) 05/10/23 00:55 Ur Specific [place] 1.036 (1.000-1.030) H 05/10/23 00:55 Urine Protein Negative (Negative) 05/10/23 00:55 Urine Glucose (UA) Negative (Negative) 05/10/23 00:55 Urine Ketones Negative (Negative) 05/10/23 00:55 Urine Blood 3+ (Negative) H 05/10/23 00:55 Urine Nitrite Negative (Negative) 05/10/23 00:55 Urine Bilirubin Negative (Negative) 05/10/23 00:55 Urine Urobilinogen Negative (Negative) 05/10/23 00:55 Ur Leukocyte Esterase Negative (Negative) 05/10/23 00:55 Urine WBC (Auto) 1-5 /hpf (0-5) 05/10/23 00:55 Urine RBC (Auto) >30 /hpf (0-4) H 05/10/23 00:55 U Hyaline Cast (Auto) 1-5 /lpf (0-5) 05/10/23 00:55 U Epithel Cells (Auto) 10-20 /lpf (0-5) H 05/10/23 00:55 Urine Bacteria (Auto) Negative (Negative) 05/10/23 00:55 Adenovirus (PCR) Not Detected (NotDetected) 05/09/23 21:35 B. pertussis DNA (PCR) Not Detected (NotDetected) 05/09/23 21:35 B.parapertussis DNA PCR Not Detected (NotDetected) 05/09/23 21:35 C. pneumoniae DNA (PCR) Not Detected (NotDetected) 05/09/23 21:35 Coronavirus OC43 (PCR) Not Detected (NotDetected) 05/09/23 21:35 Coronavirus HKU1 (PCR) Not Detected (NotDetected) 05/09/23 21:35 Coronavirus 229E (PCR) Not Detected (NotDetected) 05/09/23 21:35 SARS-CoV-2 (PCR) Not Detected (NotDetected) 05/09/23 21:35 Coronavirus NL63 (PCR) Not Detected (NotDetected) 05/09/23 21:35 Human Metapneumovir PCR Not Detected (NotDetected) 05/09/23 21:35 Influenza Type A (PCR) Not Detected (NotDetected) 05/09/23 21:35 Influenza Type B (PCR) Not Detected (NotDetected) 05/09/23 21:35 M. pneumoniae (PCR) Not Detected (NotDetected) 05/09/23 21:35 Parainfluenza 1 (PCR) Not Detected (NotDetected) 05/09/23 21:35 Parainfluenza 2 (PCR) Not Detected (NotDetected) 05/09/23 21:35 Parainfluenza 3 (PCR) Not Detected (NotDetected) 05/09/23 21:35 Parainfluenza 4 (PCR) Not Detected (NotDetected) 05/09/23 21:35 RSV (PCR) Not Detected (NotDetected) 05/09/23 21:35 Entero/Rhino (PCR) Not Detected (NotDetected) 05/09/23 21:35 Blood Type O Positive 05/09/23 21:41 Antibody Screen NEGATIVE 05/09/23 21:41 Crossmatch See Detail 05/09/23 21:41 Impressions Chest X-Ray 05/09/23 21:26 SINGLE VIEW CHEST CLINICAL HISTORY: Sepsis. FINDINGS: An AP, portable, upright chest radiograph is compared to study dated 05/03/2023 and correlated with chest CT dated 04/27/2023. A right internal jugular central venous infusion port is unchanged in position. Fullness of the mariya likely represent lymphadenopathy. The cardiomediastinal silhouette is unremarkable. Extensive/multifocal airspace consolidation is again seen throughout both lungs lungs foci of cavitation. No large pleural effusion or pneumothorax is seen. The skeletal structures are osteopenic. There are chronic/healed left-sided rib fractures. Distended small bowel loops in the upper abdomen are again noted. IMPRESSION: 1. Multifocal airspace consolidation throughout both lungs is similar to 05/03/2023 noting foci of cavitation. 2. No large pleural effusion is seen. 3. Distention of the bowel loops is again seen in the upper abdomen. ACT 112: Negative or not required by law. Electronically signed by: Shaheen Blanca M.D. 05/10/2023 7:56 AM Abdomen/Pelvis CT 05/09/23 21:28 Exam(s): CT ABDOMEN + PELVIS With Contrast IV Amt: 87 cc opti 320 EXAM: CT Abdomen and Pelvis With Intravenous Contrast CLINICAL HISTORY: abd pain nv. TECHNIQUE: Axial computed tomography images of the abdomen and pelvis with intravenous contrast. CTDI is 15.1 mGy and DLP is 766.81 mGy-cm. Automated exposure control was utilized for the study. A dose lowering technique was utilized adhering to the principles of ALARA. CONTRAST: Patient received 87 cc opti 320 of IV contrast COMPARISON: CT abdomen and pelvis with contrast dated 04/25/2023 FINDINGS: Lung bases: Extensive airspace consolidation involving the lower lungs, more prominent from the previous examination with similar areas of cavitation in several of the areas of consolidation. ABDOMEN: Liver: Unremarkable. No mass. Gallbladder and bile ducts: The gallbladder is not well delineated and is presumed completely decompressed. No ductal dilation. Pancreas: Unremarkable. No mass. No ductal dilation. Spleen: Unremarkable. No splenomegaly. Adrenals: Unremarkable. No mass. Kidneys and ureters: The right kidney remains atrophic. However, there is no prominent hydronephrosis with an abrupt transition at the UPJ. No obstructing ureteral stone noted in this area. Similar appearance of the left renal collecting system with the left kidney normal to slightly hypertrophic in size. No abnormal enhancement. Stomach and bowel: Diffuse prominent gas and fluid distention of the distal small bowel and the entire colon to the level of the mid to distal sigmoid, which is decompressed and demonstrates concentric mucosal thickening overlying to approximately 4.3 cm. This demonstrates a similar pattern to the previous CT examination. PELVIS: Appendix: No findings to suggest acute appendicitis. Bladder: Unremarkable. No mass. Reproductive: Unremarkable as visualized. ABDOMEN and PELVIS: Intraperitoneal space: Small volume perihepatic and perisplenic ascites. No loculation. No free air. Bones/joints: No acute osseous abnormality. No obvious metastatic lesions. Soft tissues: Subcutaneous edema noted involving the superficial soft tissues of the pelvis and proximal lower extremities. No loculated fluid collection. Vasculature: Bilateral iliac venous stents. The IVC is partially decompressed but is patent. No abdominal aortic aneurysm. Lymph nodes: Unremarkable. No enlarged lymph nodes. IMPRESSION: 1. Diffuse prominent gas and fluid distention of the distal small bowel and the entire colon to the level of the mid to distal sigmoid, which is decompressed and demonstrates concentric mucosal thickening overlying to approximately 4.3 cm. This demonstrates a similar pattern to the previous CT examination. Findings are most consistent with recurrent distal colonic obstruction. An underlying mass lesion is not excluded in the sigmoid colon. Jewett syndrome with incidental contraction in the sigmoid colon is considered less likely. 2. Extensive airspace consolidation involving the lower lungs, more prominent from the previous examination with similar areas of cavitation in several of the areas of consolidation. Differential consideration includes persistent necrotizing pneumonia or necrotic metastatic disease. Please correlate with clinical history not provided. 3. Small volume perihepatic and perisplenic ascites. No loculation. 4. The right kidney remains atrophic. However, there is no prominent hydronephrosis with an abrupt transition at the UPJ. No obstructing ureteral stone noted in this area. Developing stenosis or functional obstruction may be present. Electronically signed by: Fabio Raphael MD 05/09/23 23:08 PM KUB X-Ray 05/10/23 00:57 KUB CLINICAL HISTORY: Enteric tube placement. FINDINGS: Ap, portable, upright view of the lower chest and upper abdomen is compared to study dated 04/28/2023 and correlated with abdominal CT dated 4. An enteric tube has been placed. The tip projects below the diaphragm over the gastric fundus. A right internal jugular central venous infusion port is partially imaged. There is gaseous distention of the colon and small bowel loops noted in the upper abdomen. No intraperitoneal free air is seen below the diaphragm. Multifocal patchy airspace consolidation is seen at both lung bases. There are chronic/healed left-sided rib fractures. IMPRESSION: 1. An enteric tube has been placed as above. 2. There is persistent gaseous distention of the small bowel loops and colon, likely corresponding to the colonic obstruction seen by CT. 3. Multifocal airspace consolidation as above. Electronically signed by: Shaheen Blanca M.D. 05/10/2023 7:21 AM Ordered Studies 05/09/23 21:28 CT abd pelvis IV con only Stat Hospital Course (1) Sepsis: Sepsis Healthcare associated pneumonia Immunocompromised State Chronic steroid Rx for Keytruda pneumonitis Metastatic cervical cancer Chronic respiratory failure with hypoxia: On 3 L at rest and 6 L with activity --CXR:Multifocal airspace consolidation throughout both lungs is similar to 05/03/2023 noting foci of cavitation. No large pleural effusion is seen. -- Blood culture: Negative to date --Biofire negative -- Normal lactate, procalcitonin levels continue Zosyn while hospitalized Received IV fluids Transition to Augmentin on discharge Saturating well on baseline supplemental oxygen Afebrile today Persistent leukocytosis likely due to chronic steroids Plan to discharge home today Large bowel obstruction H/O recurrent small bowel obstruction --CT ABD:Diffuse prominent gas and fluid distention of the distal small bowel and the entire colon to the level of the mid to distal sigmoid, which is decompressed and demonstrates concentric mucosal thickening overlying to a pproximately 4.3 cm. This demonstrates a similar pattern to the previous CT examination. Findings are most consistent with recurrent distal colonic obstruction. An underlying mass lesion is not excluded in the sigmoid colon. Jose syndrome with incidental contraction in the sigmoid colon is considered less likely. Small volume perihepatic and perisplenic ascites. No loculation. The right kidney remains atrophic. However, there is no prominent hydronephrosis with an abrupt transition at the UPJ. No obstructing ureteral stone noted in this area. Developing stenosis or functional obstruction may be present. --S/P Transverse colostomy and urgent colonic decompression by Dr. Elmore on 05/10/2023 --NG tube discontinued Pain control Appreciate surgery help + Bowel function Advanced to regular low fiber diet Needs follow-up with surgery on discharge Hypomagnesemia Replete electrolytes as needed Monitor Stage IV cervical cancer with metastasis to lungs pelvis and vertebrae S/P surgery, radiation therapy and currently chemotherapy discontinued Poor prognosis as per oncologist per patient/family Patient/family requesting hospice evaluation Palliative care on board Acute on chronic anemia Likely multifactorial : Metastatic disease, epistaxis, Internal hemorrhoids, post surgery In setting of therapeutic Lovenox use for DVT Currently no epistaxis S/P 1 unit PRBC Monitor H&H and transfuse as needed Hb 8.9 today H/O DVT History of chronic DVT in right femoral vein. History of multiple lower extremity venous thrombectomy and stent procedures. Was on therapeutic Lovenox and Pletal Plan to resume Pletal as able Resumed Lovenox on 05/12/23: Ok with surgery. Discussed with Dr. Garza on 05/12/2023 Hypotension Sinus tachycardia Likely dehydration Cannot rule out adrenal insufficiency given chronic steroid use Received IV Decadron and IV Solu-Medrol Continue prednisone 40 mg daily Received IV fluids Other chronic conditions Recent streptococcal bacteremia--ongoing Augmentin Rx PJP/fungal pneumonia ongoing Bactrim and voriconazole Rx Anxiety disorder DVT Px: SCDs Lovenox SQ Code Status DNI/DNR Likely will transition to hospice eventually Total Time Total Time Spent Total Time Spent (In Minutes): 65 minutes Discharge Plan Discharge Items Patient Disposition: Hospice - Home Reason For Visit: SEPSIS Discharge Diagnosis: Sepsis Healthcare associated pneumonia Large bowel obstruction S/P colostomy Hypomagnesemia Activity: Per Instructions section Lifting: No more than 10 pounds Bathing Comment: may shower; no soaking in tubs/pools x 2weeks Exercise/Sports: Wait until after follow-up appointment Driving/Machine Use: no driving if taking any narcotics for pain Non-emergency contact: Primary Care Provider and Surgeon Call non-emergency contact if: you have any medication questions, your symptoms worsen, you have a fever, your temperature is above 101.5, your wound has increased redness, your wound has increased drainage and your wound pain has increased Follow-up/Referrals: Agustin Elmore DO [Physician] - (Call to schedule follow up in the office within 1-2 weeks ) Anita Duggan DNP [Nurse Practitioner] - 05/24/23 10:00 am (Palliative Care appt. Location: [facility] (rear of [facility]) in the Radiation Oncology area. For directions or appt scheduling, please call [phone].) Kristyn Brown MD [Primary Care Provider] - Diet: Low Fiber Add Attending Provider Instructions: Follow-up with your primary care physician on 05/24/23 on 10:00 AM Follow-up with your surgeon Dr. Elmore in 1 to 2 weeks as recommended Follow-up with your palliative care Dr. Duggan on 05/24/2023 at 10 AM as scheduled -- Complete the antibiotic course Augmnetin as prescribed --Discuss with your physician for further adjustment of Lovenox dose based on your weight as recommended --Your final blood cultures are pending at the time of discharge. Follow up with your physician for results --- Your Lovenox dose is adjusted based on your weight. Take 65mg twice a day. Monitor your weight as recommended and discussed with your physician for further adjustment of Lovenox dose as needed. Seek immediate medical attention if your symptoms reoccur or worsen Please take all medications as instructed on discharge list below. Please call if you have any questions or problems. You can reach a [facility] hospitalist on duty at [facility] 24 hours a day by calling [phone] [facility] [employer] Worker Provider Instructions: care for your ostomy as you have been instructed prior to discharge from the hospital Pending Studies at Discharge: Yes Studies:: surgical pathology Stand-Alone Forms: My [facility] Medications and DC Order Prescriptions: New Advanced Probiotic 625 mg (10 billion cell) Capsule 2 cap PO DAILY Qty: 20 0RF Continued sennosides [senna] 8.6 mg Tablet 8.6 mg PO DAILY PRN (Reason: Constipation) dronabinol 2.5 mg capsule 2.5 mg PO BID duloxetine 60 mg capsule,delayed release(DR/EC) 60 mg PO QAM magnesium oxide 400 mg magnesium Tablet 400 mg PO QAM dicyclomine 20 mg tablet 20 mg PO TID PRN (Reason: Abdominal Discomfort) prednisone 20 mg tablet 40 mg PO QAM potassium chloride 20 mEq tablet extended release 20 meq PO QAM sulfamethoxazole-trimethoprim [Bactrim DS] 800-160 mg Tablet 2 tab PO TID Qty: 60 0RF Rx Instructions: ORDERED 05/07/23 magnesium oxide 400 mg (241.3 mg magnesium) Tablet 400 mg PO BID Qty: 60 0RF pantoprazole 40 mg Tablet,Delayed Release (Dr/Ec) 40 mg PO QAM Qty: 30 0RF lidocaine 5 % Adhesive Patch,Medicated 1 patch transdermal QAM Qty: 30 0RF hydrocodone-homatropine [Hydromet] 5-1.5 mg/5 mL Syrup 5 ml PO Q6H PRN (Reason: cough) Qty: 100 0RF metoprolol succinate 25 mg Tablet Extended Release 24 Hr 12.5 mg PO QAM Qty: 15 0RF voriconazole [Vfend] 200 mg Tablet 200 mg PO BID Qty: 66 0RF polyethylene glycol 3350 [Miralax] 17 gram Powder In Packet 17 g PO DAILY oxybutynin chloride 10 mg tablet extended release 24hr 10 mg PO PM cilostazol 50 mg tablet 50 mg PO BID melatonin 3 mg Tablet 3 mg PO HS olanzapine 2.5 mg tablet 2.5 mg PO HS gabapentin 100 mg capsule 200 mg PO BID cyclosporine [Restasis] 0.05 % dropperette 1 drp OPB BID fentanyl 12 mcg/hr patch 72 hour 12 mcg transdermal Q72H Tyrvaya 0.03 mg/spray spray, metered, non-aerosol 1 spray INTRANASAL BID amoxicillin-pot clavulanate 875-125 mg Tablet 1 tab PO BIDM Qty: 10 0RF Rx Instructions: ORDERED 05/07/23 Changed enoxaparin 100 mg/mL syringe 65 mg subcut BID Qty: 10 0RF Rx Instructions: Patient has it at home.Will provide more if needed Discharge Orders: Discharge Order (Routine); Ordered 05/14/23 Ordered By: Nicholas Fung Admission Data Admit Date/Time: 05/10/23 00:20 Attending Provider: Nicholas Fung Admit Provider: Thompson Robin Primary Care Provider: Kristyn Brown Other Providers: Thompson Robin; Anita Duggan; Rina Olson; Vaughn Coon; Neno Delgado; Fabio Foster; Rogers Garza; Carmen Woods; Fabrice Hirsch; Meño French; Agustin Jurado; Marlo Gamino; [facility]
== END 2023-05-14 16:12 | disposition hospice, home (50) | DRG 329 ==
LOC: ED 21:08 → EDINP 05-10 00:20 → 2E 05-10 06:29